=== PATIENT | female | born 1940 | race Caucasian/White ===

== ENCOUNTER → 2017-08-07 | Outpatient (CLI) | payer MEDICARE, OTHER, SELFPAY | PROVIDERS: Visit Provider Orthopaedic Surgery | DX: M76.892 Other specified enthesopathies of left lower limb, excluding foot (principal) | CPT/HCPCS: 73721 ==

== ENCOUNTER → 2017-09-17 12:57 | Outpatient (CLI) | payer MEDICARE, OTHER, SELFPAY | PROVIDERS: Family Provider Internal Medicine; PCP Internal Medicine; Visit Provider Nurse Practitioner Family | DX: J45.909 Unspecified asthma, uncomplicated (principal) ==

== ENCOUNTER → 2017-10-28 09:54 | Outpatient (CLI) | payer MEDICARE, OTHER, SELFPAY ==
[2017-10-28 14:06] VITALS: PULSE 73; PULSE 78
== END ==
PROVIDERS: Family Provider Internal Medicine; PCP Internal Medicine; Visit Provider Internal Medicine
DX: R10.9 Unspecified abdominal pain (principal)
CPT/HCPCS: 94060; 94640; 94727; 94729

== ENCOUNTER → 2018-03-03 12:47 | Outpatient (CLI) | payer MEDICARE, OTHER, SELFPAY ==
--- NOTE | 2018-03-03 12:51 | CT_ITS ---
CT chest wo con INDICATION: Shortness of breath, patient states history of asthma ITS.REASON: PULMONARY NODULE, SOB ORDERING PHYSICIAN: Jason Sung MD PATIENT AGE: 77 years COMPARISON: (05/19/2017 TECHNIQUE: Axial images are obtained without contrast. Sagittal and coronal reformatted images are reviewed as well. All CT scans at the facility use one or more dose reduction, viz: automated exposure control; ma/kV adjustment per patient size (including targeted exams where dose is matched to indication; i.e. head); or iterative reconstruction technique. FINDINGS: The lung rosario are well expanded. Again noted is the azygos lobe a normal variation. There is a stable noncalcified subpleural pulmonary nodule right upper lobe laterally. There is a calcified granuloma right middle lobe laterally. There are no pneumonic infiltrates. There is mild stable pleural scarring at the left posterior gutter. There are stable generalized cardio megaly and there is no pulmonary congestion. Both adrenal glands appear normal. IMPRESSION: Stable small 6 to 7 mm noncalcified pulmonary nodule and consider follow CT scan in one year to evaluate for interval stability. Stable generalized cardio megaly without failure.
== END ==
PROVIDERS: Family Provider Internal Medicine; PCP Internal Medicine; Visit Provider Internal Medicine
DX: R91.1 Solitary pulmonary nodule (principal)
CPT/HCPCS: 71250

== ENCOUNTER → 2018-03-10 14:39 | Outpatient (POV) | payer MEDICARE, OTHER, SELFPAY | PROVIDERS: Family Provider Internal Medicine; PCP Internal Medicine; Visit Provider Internal Medicine | DX: Z00.00 Encounter for general adult medical examination without abnormal findings (principal) ==

== ENCOUNTER → 2018-04-15 11:29 | Outpatient (CLI) | payer MEDICARE, OTHER, SELFPAY ==
--- NOTE | 2018-04-15 11:34 | XR_ITS ---
XR chest 2V HISTORY: Shortness of breath, hypertension ITS.REASON: SHORTNESS OF BREATH,HTN ORDERING PHYSICIAN: Alfred Cantu PATIENT AGE: 77 years COMPARISON: 05/16/2017 FINDINGS: There is mild cardiomegaly without failure. There is an azygos fissure is a normal variant. No lobar consolidation or collapse is evident. There is mild patient rotation. The pulmonary arteries are slightly prominent on the right and in somewhat may be due to patient rotation. No acute bony anomalies. IMPRESSION: Cardiomegaly. Mild prominence of the pulmonary arteries which may be seen with pulmonary arterial hypertension.
== END ==
PROVIDERS: PCP Internal Medicine; Visit Provider Internal Medicine
DX: R06.02 Shortness of breath (principal); I10 Essential (primary) hypertension
CPT/HCPCS: 71046

== ENCOUNTER → 2018-05-06 15:24 | Outpatient (CLI) | payer MEDICARE, OTHER, SELFPAY ==
--- NOTE | 2018-05-06 15:31 | XR_ITS ---
XR ankle LT min 3V HISTORY: ITS.REASON: LEFT ANKLE PAIN ORDERING PHYSICIAN: Alfred Cantu PATIENT AGE: 77 years Comparison: None FINDINGS: There is mild soft tissue swelling overlying the lateral malleolus region. Faint calcification is present at the tip of the lateral malleolus consistent with old avulsion injury or posttraumatic changes. This was present on 12/23/2014. Calcification also noted along the dorsal aspect of the mid talar area not readily apparent on the previous exam consistent with avulsion fracture/posttraumatic change. Has the patient had an interval injury to this region? No other significant anomalies are evident. IMPRESSION: Irregular calcification along the mid and dorsal aspect of the talus which may be related to avulsion fracture with soft tissue calcification. Please correlate with patient's history. Soft tissue swelling along the lateral malleolus region with old avulsion fracture of the tip of the lateral malleolus
== END ==
PROVIDERS: Visit Provider Internal Medicine
DX: M25.572 Pain in left ankle and joints of left foot (principal)
CPT/HCPCS: 73610

== ENCOUNTER → 2018-09-08 15:58 | Outpatient (POV) | payer MEDICARE, OTHER, SELFPAY | PROVIDERS: Visit Provider Internal Medicine | DX: Z00.00 Encounter for general adult medical examination without abnormal findings (principal) ==

== ENCOUNTER 2018-10-17 11:55 | Inpatient (IN) ==
--- NOTE | 2018-10-17 12:10 | Emergency Department Note ---
ED Disposition Clinical Impression: Asthmatic bronchitis, Pulmonary hypertension, Obesity, Systemic hypertension, Community acquired bacterial pneumonia Disposition: Still a Patient Condition on Discharge: Fair Referrals: Alfred Cantu [Primary Care Provider] - - Critical Care Critical Care Time: No Attestation: On , the high probability of a clinically significant, sudden or life threatening deterioration of the following system(s) required my full and direct attention, intervention and personal management. The time I documented below is in addition to time spent performing reported procedures but includes the following listed in this critical care notation. Medical Decision Making - Medical Records Medical records reviewed: Yes: I reviewed the patient's medical records. - Saad Inquiry Pt receiving controlled substance: No Saad was queried for this patient: No Vital Signs: 10/17/18 11:57 10/17/18 12:05 10/17/18 12:25 Temperature 100.5 F H Temperature Source Oral Pulse Rate 100 H Pulse Rate [Left Radial] 106 H Respiratory Rate 42 H Blood Pressure [Right Arm] 185/113 H Blood Pressure Mean [Right Arm] 137 Blood Pressure Source [Right Arm] Automatic Cuff Blood Pressure Position [Right Arm] Sitting 02 Sat by Pulse Oximetry 95 95 85 L Oxygen Delivery Method Nasal Cannula Nasal Cannula Room Air Oxygen Flow Rate (LPM) 2 2 10/17/18 14:18 10/17/18 14:30 10/17/18 15:00 Temperature Temperature Source Pulse Rate Pulse Rate [Left Radial] 92 H 89 85 Respiratory Rate Blood Pressure [Right Arm] 147/60 H 158/88 H 163/99 H Blood Pressure Mean [Right Arm] 89 111 120 Blood Pressure Source [Right Arm] Automatic Cuff Blood Pressure Position [Right Arm] Sitting 02 Sat by Pulse Oximetry 96 96 95 Oxygen Delivery Method Nasal Cannula Oxygen Flow Rate (LPM) 2 10/17/18 15:30 10/17/18 16:00 Temperature Temperature Source Pulse Rate Pulse Rate [Left Radial] 95 H 90 Respiratory Rate Blood Pressure [Right Arm] 150/89 H 138/88 Blood Pressure Mean [Right Arm] 109 104 Blood Pressure Source [Right Arm] Automatic Cuff Automatic Cuff Blood Pressure Position [Right Arm] Sitting Sitting 02 Sat by Pulse Oximetry 94 L 95 Oxygen Delivery Method Nasal Cannula Nasal Cannula Oxygen Flow Rate (LPM) 2 2 - Lab Data Lab Results 10/17/18 12:15: WBC 16.3 H, RBC 4.70, Hgb 12.1 L, Hct 37.8, MCV 80.4 L, MCH 25.8 L, MCHC 32.1, RDW 14.6, Plt Count 288, MPV 8.9, Neut % (Auto) 77.8, Lymph % (Auto) 10.6, [place] % (Auto) 6.4, Eos % (Auto) 4.9, Baso % (Auto) 0.4, Neut # (Auto) 12.7 H, Lymph # (Auto) 1.7, [place] # (Auto) 1.0, Eos # (Auto) 0.8 H, Baso # (Auto) 0.1, Total Counted 100, Neutrophils % (Manual) 83 H, Lymphocytes % (Manu al) 10, Monocytes % (Manual) 7, Platelet Estimate Normal 10/17/18 12:15: Sodium 136, Potassium 3.5, Chloride 97 L, Carbon Dioxide 29, Anion Gap 13.5, BUN 15, Creatinine 1.02, Estimated Creat Clear 66, Estimated GFR 53 L, Est GFR ( Amer) 64, Glucose 112 H, Calcium 8.7, Total Bilirubin 0.5, AST 17, ALT 31, Alkaline Phosphatase 94, Troponin I < 0.02, Total Protein 7.3, Albumin 3.4, Globulin 3.9 H, Albumin/Globulin Ratio 0.9 L 10/17/18 12:15: Lactate 0.9 10/17/18 12:15: B-Natriuretic Peptide 563 H Result diagrams: 10/17/18 12:15 10/17/18 12:15 Orders (Tests/Meds): ED MEDICATIONS Generic Name Dose Route Start Last Admin Trade Name Bharathiq PRN Reason Stop Dose Admin Albuterol/Ipratropium 3 ml 10/17/18 12:15 10/17/18 12:05 Duoneb 3ml Neb IH 11/16/18 12:14 3 ml Q1H CELI Administration Ceftriaxone Sodium 1 gm/ 50 mls @ 100 mls/hr 10/17/18 12:15 10/17/18 13:00 Sodium Chloride IV 10/31/18 12:14 100 mls/hr Q24H CELI Administration Protocol Azithromycin 500 mg/ Sodium 250 mls @ 250 mls/hr 10/17/18 14:30 10/17/18 14:46 Chloride IV 10/31/18 14:29 250 mls/hr Q24H CELI Administration Protocol Discontinued Medications Generic Name Dose Route Start Last Admin Trade Name Slade PRN Reason Stop Dose Admin Famotidine 20 mg 10/17/18 12:07 10/17/18 13:00 Pepcid 20mg/2ml Vial IV 10/17/18 12:08 20 mg ONCE ONE Administration Methylprednisolone Sodium Succinate 125 mg 10/17/18 12:07 10/17/18 12:29 Solu-Medrol 125mg/2ml Vial IV 10/17/18 12:08 125 mg ONCE ONE Administration ORDERS Category Date Time Status Blood Culture Stat Micro 10/17/18 12:15 Received - Radiology Data #1 Image(s): Chest Image Reviewed: Yes I reviewed the patient's radiology image Preliminary Findings: Abnormal IMPRESSION: Right basilar airspace disease Infiltrate/atelectasis right infrahilar & extending towards right lung base.. Medical Decision Narrative: Patient chest x-ray was positive for bibasilar infiltrates, patient started on Rocephin in the ED. I contacted Dr. Gardner is covering for Dr. Bethea agreed to admit. She was agreeable for admission.. Resp/SOB HPI - General Stated Complaint: SOB Time Seen by Provider: 10/17/18 12:08 - History of Present Illness 78 years old white female with history of asthma suffering from the fourth episode this year. She had extensive workup last year including a cardiac cat heterization and she was told that she is having pulmonary hypertension. Since October 12, 2018, she developed another episode was seen by her primary care physician she was given Z-Janak and prednisone in addition to her albuterol neb at home. She is not getting better she continues to be short of breath, wheezing, and arrived to the ED with a oxygen saturation of 85% on room air and temperature of 100.5F. She denies having chest pain, palpitations, hemoptysis, hematemesis, coffee- ground emesis, or bleeding per rectum. MD Complaint: shortness of breath Onset (ago): day(s) (5 days.) Severity: moderate Consistency/Duration: constant Relieving factors: oxygen, rest, bronchodilators Exacerbating factors: exertion Known history of: asthma Associated symptoms: cough, wheezing, sputum production Treatment prior to arrival: bronchodilator, other (Antibiotics and steroids by her primary care physician. ) - Related Data Home oxygen amount: none Home Medications Medication Instructions Recorded Confirmed albuterol sulfate HFA 90 2 puff INHALATION Q6H PRN 09/09/17 02/06/18 mcg/actuation aerosol inhaler carvedilol 25 mg tablet 25 mg PO ONCE 90 Days #360 tab 09/09/17 02/06/18 diazepam 5 mg tablet 5 mg PO DAILY 30 Days #60 09/09/17 02/06/18 diclofenac sodium 75 mg 75 mg PO DAILY 90 Days #180 09/09/17 02/06/18 tablet,delayed release fluticasone propionate-salmeterol 2 puff INHALATION Q12H 09/09/17 02/06/18 230 mcg-21 mcg/actuation HFA inhaler losartan 25 mg tablet 25 mg PO QDAY 09/09/17 02/06/18 multivitamin,ne-voir-lejpujoe 1 tab PO QDAY 09/09/17 02/06/18 tablet triamterene 37.5 1 tab PO QAM 09/09/17 02/06/18 mg-hydrochlorothiazide 25 mg tablet Aspirin [Aspir 81] 81 mg PO DAILY 11/26/17 02/06/18 Allergies Allergy/AdvReac Type Severity Reaction Status Date / Time latex Allergy Intermediate I-RASH Verified 02/06/18 07:31 Sulfa (Sulfonamide Allergy Mild NA-NAUSEA Verified 02/06/18 07:31 Antibiotics) [facility] History - Hepatitis A Screen Attestation statement:: This patient has been screened for Hepatitis A risk factors. I have reviewed the patient's past medical history: Yes (She did have extensive workup including cardiac cath in 2018. ) Medical History: Reports:: Anxiety, Heart Murmur, Hyperlipidemia (NOT MEDICATED), Hypertension, Lung Disease (asthma) Denies:: Diabetes Mellitus Type 1, Diabetes Mellitus Type 2, Internal Pacemaker, Seizures Other Medical History: Denies: Blood Transfusion Reaction Other Surgeries: Yes: Appendectomy, Cardiac Catheterization (6 MONTHS AG0), Cholecystectomy, Hysterectomy-Total, Sinus Surgery. No: Pacemaker - Social History Smoking Status: Smoker, status unknown Alcohol Intake: never - Psychiatric History Pschychiatric History:: Reports:: Anxiety Family Hx:: No significant family history ROS Obtained: Yes All systems reviewed & no additional complaints Physical Exam - General General appearance: alert, in no apparent distress, anxious, obese - Head Head exam: atraumatic, normocephalic, normal inspection - Eye Eye exam: Present: normal appearance, PERRL, EOMI. Absent: scleral icterus, nystagmus - ENT ENT exam: Present: normal exam, normal oropharynx, mucous membranes moist, TM's normal bilaterally, normal external ear exam - Neck Neck exam: Present: normal inspection, full ROM, trachea midline. Absent: tenderness, meningismus, lymphadenopathy - Chest Chest inspection: Present: normal inspection, symmetric chest wall rise. Absent: tenderness - Respiratory Respiratory exam: Present: normal lung sounds bilaterally, respiratory distress, wheezes, other (Mild to moderate respiratory distress, bilateral lung wheeze anteriorly and posteriorly.) - Cardiovascular Cardiovascular exam: Present: normal rhythm, tachycardia. Absent: JVD - Abdominal Exam Abdominal exam: Present: soft, normal bowel sounds. Absent: distention, tenderness, guarding, rebound, rigidity, Luis's sign, tenderness at McBurney's Point - Extremities Exam Extremities exam: Present: normal inspection, full ROM, normal capillary refill. Absent: tenderness, pedal edema, calf tenderness - Back Exam Back exam: Present: normal inspection. Absent: tenderness - Neurological Exam Neurological exam: Present: alert, oriented X3, CN II-XII intact, motor sensory deficit, reflexes normal - Psychiatric Psychiatric exam: Present: normal affect, normal mood - Skin Skin exam: Present: warm, dry, intact, normal color - Lymphatic Lymphatic Findings: no adenopathy
[2018-10-17 12:25] LABS: Basophils # 0.1 K/mm3 (0-0.2); Basophils % 0.4 % (0.1-2.0); Eosinophils # 0.8 K/mm3 (0.0-0.4); Eosinophils % 4.9 % (0.1-12.0); Hematocrit 37.8 % (37.0-47.0); Hemoglobin 12.1 g/dL (12.2-16.2); Lymphocytes # 1.7 K/mm3 (0.7-4.5); Lymphocytes % 10.6 % (10-50); Mean Corpuscular HGB Conc 32.1 g/dL (31.8-35.4); Mean Corpuscular Hemoglobin 25.8 pg (27.0-31.2); Mean Corpuscular Volume 80.4 fl (81-99); Mean Platelet Volume 8.9 fl (7.4-10.4); Monocytes % 6.4 % (1.7-9.3); Neutrophils # 12.7 K/mm3 (1.8-7.8); Neutrophils % 77.8 % (37.0-80.0); Platelet Count 288 K/mm3 (142-424); Red Cell Distribution Width 14.6 % (11.5-17.5); White Blood Count 16.3 K/mm3 (4.8-10.8)
[2018-10-17 12:39] LABS: Alanine Aminotransferase 31 U/L (12-78); Albumin Level 3.4 gm/dL (3.4-5.0); Albumin/Globulin Ratio 0.9 (1.1-1.8); Alkaline Phosphatase 94 U/L (46-116); Anion Gap 13.5 mEq/L (5-15); Aspartate Amino Transferase 17 U/L (15-37); Bilirubin,Total 0.5 mg/dL (0.2-1.0); Blood Urea Nitrogen 15 mg/dL (7-18); Calcium 8.7 mg/dL (8.5-10.1); Carbon Dioxide 29 mmol/L (21.0-32.0); Chloride 97 mmol/L (98-107); Globulin 3.9 gm/dl (1.3-3.2); Glucose 112 mg/dL (74-106); Potassium 3.5 mmoL/L (3.5-5.1); Sodium 136 mmol/L (136-145); Total Protein,Serum 7.3 gm/dL (6.4-8.2)
[2018-10-17 13:08] LABS: Lymphocytes % 10 % (10-50); Monocytes % 7 % (2-9); Neutrophils % 83 % (42-76); Total Cells Counted 100
[2018-10-17 17:05] LABS: Anion Gap 13.5 mEq/L (5-15); Calcium 8.6 mg/dL (8.5-10.1); Potassium 3.5 mmoL/L (3.5-5.1)
[2018-10-18 06:42] LABS: Basophils % 0.1 % (0.1-2.0); Eosinophils % 0.1 % (0.1-12.0); Hematocrit 33.5 % (37.0-47.0); Lymphocytes # 1.4 K/mm3 (0.7-4.5); Mean Corpuscular HGB Conc 32.8 g/dL (31.8-35.4); Mean Corpuscular Hemoglobin 26.3 pg (27.0-31.2); Mean Platelet Volume 9.1 fl (7.4-10.4); Monocytes # 0.4 K/mm3 (0.1-1.0); Monocytes % 3.2 % (1.7-9.3); Neutrophils # 10.5 K/mm3 (1.8-7.8); Neutrophils % 85.6 % (37.0-80.0); Platelet Count 240 K/mm3 (142-424); Red Blood Count 4.19 M/mm3 (4.20-5.40); Red Cell Distribution Width 14.4 % (11.5-17.5); White Blood Count 12.3 K/mm3 (4.8-10.8)
[2018-10-18 07:19] LABS: Lymphocytes % 7 % (10-50); Monocytes % 3 % (2-9); Neutrophils % 87 % (42-76); Polychromasia 1+; Total Cells Counted 100
--- NOTE | 2018-10-18 08:13 | History & Physical Report ---
*Admission Date: 10/17/18 *Chief complaint: Cough and shortness of air *History of present illness: 78-year-old white female with history of recurrent bronchial infections, who over the past 4 months has had several different treatments for community- acquired bronchitis/asthma exacerbation with outpatient shots of steroid and azithromycin packs. This occurred in June, again in July and this past Friday when she went to her physician's office and received a cortisone injection and was prescribed a Z-Janak. She did not feel much better, became increasingly short of air, and presented to the emergency department yesterday evening where she was found to have infiltrate in the right chest, dyspnea and increased oxygen requirement and was admitted to the hospital. This morning she states she feels somewhat better but continues to have a dry cough but her overall complaint is significant shortness of air. [facility] History I have reviewed the patient's past medical history: Yes Medical History: Reports:: Anxiety, Heart Murmur, Hyperlipidemia (NOT MEDICATED), Hypertension, Lung Disease (asthma) Denies:: Diabetes Mellitus Type 1, Diabetes Mellitus Type 2, Internal Pacemaker, Seizures *Have you ever received a pneumonia vaccine?: Yes *Have you received a flu vaccine this season?: Yes Other Medical History: Denies: Blood Transfusion Reaction Comment:: Patient reports left and right heart catheterization at [facility] last summer that was "totally normal." Other Surgeries: Yes: Appendectomy, Cardiac Catheterization (6 MONTHS AG0), Cholecystectomy, Hysterectomy-Total, Sinus Surgery. No: Pacemaker - *Social History Educational Level: Completed High School Smoking Status: Never smoker Alcohol Intake: never *Occupational Status:: retired Housing: house Household Members: spouse *Travel in the last 8 weeks: None - Psychiatric History Expresses thoughts of harming self/others: None Suicide Plan Description: No Plan Pschychiatric History:: Reports:: Anxiety Family Hx:: No significant family history Review of Systems - Review of Systems Review of systems:: pertinent systems reviewed and negative unless documented below - Constitutional Denies anorexia, Denies body ache(s), Denies chills, Denies headache(s), Denies weakness, Denies weight gain - Eyes Denies blurry vision, Denies change in vision - ENT Denies bleeding gums, Denies dry mouth, Denies difficulty swallowing - *Cardiovascular Reports shortness of breath, Reports shortness of breath with activity, Denies chest pain, Denies chest pain at rest, Denies chest pain with activity, Denies leg pain with activity, Denies generalized swelling, Denies irregular heart rhythm, Denies leg swelling - *Respiratory Reports chest congestion, Reports cough, Reports shortness of breath, Reports excessive phlegm production, Denies change in phlegm color - *Gastrointestinal Denies abdominal pain, Denies belching - *Musculoskeletal Reports joint pain, Denies abnormal walking - Integumentary/Breasts Denies hair loss, Denies bleeding lesions - *Neurologic Denies abnormal walking, Denies abnormal hearing - Endocrine Denies cold intolerance, Denies excessive sweating - Hematologic/Lymphatic Denies easy bleeding Meds Home Medications Medication Instructions Recorded Confirmed Type albuterol sulfate HFA 90 2 puff INHALATION Q6H PRN 09/09/17 10/17/18 History mcg/actuation aerosol inhaler carvedilol 25 mg tablet 25 mg PO ONCE 90 Days #360 tab 09/09/17 10/17/18 History diazepam 5 mg tablet 5 mg PO DAILY 30 Days #60 09/09/17 02/06/18 History diclofenac sodium 75 mg 75 mg PO DAILY 90 Days #180 09/09/17 02/06/18 History tablet,delayed release fluticasone propionate-salmeterol 2 puff INHALATION Q12H 09/09/17 02/06/18 History 230 mcg-21 mcg/actuation HFA inhaler losartan 25 mg tablet 25 mg PO QDAY 09/09/17 10/17/18 History multivitamin,xd-oyiw-vztmoubv 1 tab PO QDAY 09/09/17 02/06/18 History tablet triamterene 37.5 1 tab PO QAM 09/09/17 10/17/18 History mg-hydrochlorothiazide 25 mg tablet Allergies Allergy/AdvReac Type Severity Reaction Status Date / Time latex Allergy Intermediate I-RASH Verified 02/06/18 07:31 Sulfa (Sulfonamide Allergy Mild NA-NAUSEA Verified 02/06/18 07:31 Antibiotics) Exam Vital signs and Labs for Last 24 Hours: Temp Pulse Resp BP Pulse Ox 98.4 F 74 18 150/77 H 97 10/18/18 04:00 10/18/18 04:00 10/18/18 04:00 10/18/18 04:00 10/18/18 04:00 Laboratory Results - last 24 hr 10/17/18 12:15: WBC 16.3 H, RBC 4.70, Hgb 12.1 L, Hct 37.8, MCV 80.4 L, MCH 25.8 L, MCHC 32.1, RDW 14.6, Plt Count 288, MPV 8.9, Neut % (Auto) 77.8, Lymph % (Auto) 10.6, [place] % (Auto) 6.4, Eos % (Auto) 4.9, Baso % (Auto) 0.4, Neut # (Auto) 12.7 H, Lymph # (Auto) 1.7, [place] # (Auto) 1.0, Eos # (Auto) 0.8 H, Baso # (Auto) 0.1, Total Counted 100, Neutrophils % (Manual) 83 H, Lymphocytes % (Manual) 10, Monocytes % (Manual) 7, Platelet Estimate Normal 10/17/18 12:15: Sodium 136, Potassium 3.5, Chloride 97 L, Carbon Dioxide 29, Anion Gap 13.5, BUN 15, Creatinine 1.02, Estimated Creat Clear 66, Estimated GFR 53 L, Est GFR ( Amer) 64, Glucose 112 H, Calcium 8.7, Total Bilirubin 0.5, AST 17, ALT 31, Alkaline Phosphatase 94, Troponin I < 0.02, Total Protein 7.3, Albumin 3.4, Globulin 3.9 H, Albumin/Globulin Ratio 0.9 L 10/17/18 12:15: Lactate 0.9 10/17/18 12:15: B-Natriuretic Peptide 563 H 10/17/18 16:45: Sodium 138, Potassium 3.5, Chloride 100, Carbon Dioxide 28, Anion Gap 13.5, BUN 13, Creatinine 0.89, Estimated Creat Clear 67, Estimated GFR 62, Est GFR ( Amer) 75, Glucose 157 H D, Calcium 8.6 10/18/18 06:09: WBC 12.3 H, RBC 4.19 L, Hgb 11.0 L, Hct 33.5 L, MCV 80.0 L, MCH 26.3 L, MCHC 32.8, RDW 14.4, Plt Count 240, MPV 9.1, Neut % (Auto) 85.6 H, Lymph % (Auto) 11.0, [place] % (Auto) 3.2, Eos % (Auto) 0.1, Baso % (Auto) 0.1, Neut # (Auto) 10.5 H, Lymph # (Auto) 1.4, [place] # (Auto) 0.4, Eos # (Auto) 0.0, Baso # (Auto) 0.0, Total Counted 100, Neutrophils % (Manual) 87 H, Band Neutrophils % 3.0, Lymphocytes % (Manual) 7 L, Monocytes % (Manual) 3, Platelet Estimate Normal, Polychromasia 1+ I & O for Last 24 hours: Intake & Output 10/15/18 10/16/18 10/17/18 10/18/18 11:59 11:59 11:59 12:59 Intake Total 240 / 240 Output Total 625 / 625 Balance -385 / -385 Weight 196 lb 7 oz Narrative: Patient is alert, oriented x3, appears her stated age. Morbidly obese. Oropharynx clear. No JVD. No sinus tenderness. Lungs have diminished air movement, crackles in the right anterior lower lung field. Diffuse expiratory rhonchi but no actual wheezing. No tracheal deviation. Heart rate regular. Murmur noted. Lung examination abnormalities and obesity limits accuracy of her exam. Abdomen soft, nontender. No extremity edema clubbing or cyanosis. Assessment and Plan (1) Dyspnea Current visit: Yes Status: Acute Category: Medical Code(s): R06.00 - Dyspnea, unspecified Multiple etiologies, patient's history of pulmonary hypertension as noted. Plan to obtain catheter results and obtain echocardiogram. Dose of Lasix cautiously today given her fluid overload signs on chest x-ray and elevated BNP. (2) Asthmatic bronchitis Current visit: Yes Status: Acute Category: Medical Code(s): J45.909 - Unspecified asthma, uncomplicated Begin nebulizer treatments. (3) Community acquired bacterial pneumonia Current visit: Yes Status: Acute Category: Medical Code(s): J15.9 - Unspecified bacterial pneumonia Given multiple exposures to antibiotics at home I will change to more aggressive broad-spectrum antibiotics. (4) Obesity Current visit: Yes Status: Chronic Qualifiers: Body mass index: BMI 38.0-38.9 Category: Medical Code(s): E66.9 - Obesity, unspecified Complicates all aspects of her care (5) Pulmonary hypertension Current visit: Yes Status: Acute Category: Medical Code(s): I27.20 - Pulmonary hypertension, unspecified Obtain records, check echo (6) Systemic hypertension Current visit: Yes Status: Acute Category: Medical Code(s): I10 - Essential (primary) hypertension Currently stable. Follow closely. Hold diuretics orally given Lasix administration today.
--- NOTE | 2018-10-18 13:53 | Pharmacy Consult Notes ---
[facility] Pharmacy VTE Monitoring - Patient Demographics Admission date: 10/18/18 Report Date: 10/18/18 Time: 13:52 Allergies/Adverse Reactions: Patient Allergies latex Allergy (Intermediate, Verified 02/06/18 07:31) I-RASH Sulfa (Sulfonamide Antibiotics) Allergy (Mild, Verified 02/06/18 07:31) NA-NAUSEA Height: 1.52 m Weight: 89.103 kg Patient Problems: Current Active Problems Asthmatic bronchitis (Acute) Pulmonary hypertension (Acute) Obesity (Chronic) Systemic hypertension (Acute) Community acquired bacterial pneumonia (Acute) Dyspnea (Acute) - VTE Risk Labs: VTE Related Lab Results Hgb 11.0 g/dL (12.2-16.2) L 10/18/18 06:09 Hct 33.5 % (37.0-47.0) L 10/18/18 06:09 Plt Count 240 K/mm3 (142-424) 10/18/18 06:09 BUN 13 mg/dL (7-18) 10/17/18 16:45 Creatinine 0.89 mg/dL (0.55-1.02) 10/17/18 16:45 Estimated Creat Clear 67 mL/min (50-200) 10/17/18 16:45 Was VTE Risk Assessment Performed: No VTE Score: 5 VTE Risk Level: Low Risk - Prophylaxis Types of VTE Prophylaxis: TEDS Knee High (DAVINA HOSE ORDER PLACED)
--- NOTE | 2018-10-19 08:41 | Progress Note ---
Internal Medicine - PN: Subj *Date: 10/19/18 *Time: 08:39 Interval history: Patient overall feels slightly better. She is a very tangential historian but does note that her shortness of air is slightly better. She notes that she does not take Advair on a regular basis or her duo nebs on a regular basis at home. She has had no fever overnight and was able to submit a sputum sample yesterday. Exam Vital signs and Labs for Last 24 Hours: Temp Pulse Resp BP Pulse Ox 98.6 F 91 H 18 156/89 H 95 10/19/18 08:00 10/19/18 08:00 10/19/18 08:00 10/19/18 08:00 10/19/18 08:00 I & O for Last 24 hours: Intake & Output 10/16/18 10/17/18 10/18/18 10/19/18 10:59 10:59 11:59 11:59 Intake Total 760 / 760 Output Total Balance 760 / 760 Weight 196 lb 7 oz Microbiology Reports for the Last 24 Hours: Microbiology 10/18/18 20:30 Sputum - Expectorated Sputum Gram Stain - Final 10/18/18 20:30 Sputum - Expectorated Sputum Sputum Culture - Preliminary Narrative: Patient is alert. Pleasant. Extremely tangential on interview. Her oropharynx is clear, she has no JVD. Heart rate regular with previously noted 2/6 holosystolic murmur. Lungs have rhonchi and expiratory wheezing but better air entry in the previously noted crackles in the right anterior lung rosario are clear. Obesity limits her abdominal exam issues. She has no edema, clubbing or cyanosis. Neurologic exam is nonfocal. Assessment and Plan (1) Dyspnea Current visit: Yes Status: Acute Category: Medical Code(s): R06.00 - Dyspnea, unspecified (2) Asthmatic bronchitis Current visit: Yes Status: Acute Category: Medical Code(s): J45.909 - Unspecified asthma, uncomplicated Patient is clearly been noncompliant with scheduled nebulizers and Advair at home. I emphasized compliance. Continue nebulizers and Advair. May need to go home on oxygen when ready for discharge. (3) Community acquired bacterial pneumonia Current visit: Yes Status: Acute Category: Medical Code(s): J15.9 - Unspecified bacterial pneumonia Continue broad-spectrum antibiotics given multiple outpatient antibiotic exposures. Await sputum culture. (4) Obesity Current visit: Yes Status: Chronic Qualifiers: Body mass index: BMI 38.0-38.9 Category: Medical Code(s): E66.9 - Obesity, unspecified (5) Pulmonary hypertension Current visit: Yes Status: Acute Category: Medical Code(s): I27.20 - Pulmonary hypertension, unspecified This is a problem list on patient's chart however I reviewed her cath data from [facility] which does not reveal any evidence of pulmonary hypertension. (6) Systemic hypertension Current visit: Yes Status: Acute Category: Medical Code(s): I10 - Essential (primary) hypertension
--- NOTE | 2018-10-19 19:36 | Cardiology Report ---
PROCEDURE: 2-D M-mode and color Doppler study INDICATIONS FOR THE TEST: Chest pain COPD+ Heart Murmur+ Tobacco Smoking 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 Fatigue Syncope Edema Hypertension+Diabetes Mellitus Rheumatic Fever SOB KUMAR Obesity+Hyperlipidemia+ Family History HD Additional History PHTN PATIENT INFORMATION HEIGHT: 60 WEIGHT:196 GENDER: Female B/P:150/77 2-D/M-MODE INTERPRETATION: 2-D MEASUREMENTS OBSERVED VALUES IN CMS Right Ventricular Dimension (RVDd) 1.6 Interventricular Septum (Thickness)(IVsd) 2.1 Left Ventricular Internal Dimensions(LVIDd) 5.2 Left Ventricular Posterior Wall (Thickness)(LVPWd) 1.9 Aortic Root 3.6 Aortic Cusp Separation 2.1 Left Atrial Dimensions (LAD) 3.4 2D 1. Technically difficult study because of the patient's factor and poor acoustic windows 2. Left atrium is moderately enlarged, left ventricle is mildly dilated, there is severely reduced function, visually estimated ejection fraction 30%, there is marked hypokinesis involving mid to distal septum, anterior and anteroapical wall, there is abnormal septal motion. 3. The right atrium is moderately enlarged, right ventricle is mildly dilated with normal contractility. 4. The aortic valve is thickened and calcified leaflet continue to display mobility. 5. The mitral valve leaflets are minimally thickened. 6. The tricuspid valve leaflets are minimally thickened. 7. Pulmonic valve is poorly visualized. 8. No significant pericardial effusion noted. DOPPLER INTERROGATION: 1. The aortic outflow velocities within normal range, there is no aortic stenosis, there is mild aortic insufficiency. 2. The mitral inflow velocity is not accurately recorded, mildly increased, morphologically there is no mitral stenosis, there is severe mitral regurgitation, as evidence by color flow mapping, there is systolic flow reversal seen in the pulmonary vein. 3. Moderate tricuspid regurgitation noted, tricuspid regurgitation jet velocity is inadequate for calculation of the right ventricular systolic pressure. CONCLUSION: 1. Moderate biatrial enlargement, mildly dilated left ventricle, severely reduced left ventricular systolic function, visually estimated ejection fraction approximately 30% with segmental wall motion abnormality described above. 2. Thickened and calcified aortic valve without Doppler evidence of aortic stenosis, mild aortic insufficiency. 3. Severe mitral regurgitation, there is systolic flow reversal seen in the pulmonary vein. 4. Moderate tricuspid regurgitation, tricuspid regurgitation jet velocity is inadequate for calculation of the right ventricular systolic pressure. 5. No significant pericardial effusion noted.
[2018-10-19 21:43] LABS: ABG Base Excess 3.8 mmol/L (-2.4-2.3); ABG Oxygen Saturation 89 % (90-100); ABG PH 7.37 mmol/L (7.35-7.45); ABG PO2 59.3 mmhg (80-100); ABG TCO2 30.5 mmhg (23-27)
[2018-10-19 21:45] LABS: Allen's Test Acceptable
[2018-10-19 21:49] LABS: Oxygen 3 LPM NC %
[2018-10-19 21:50] LABS: ABG PCO2 50.8 mmhg (35.0-45.0)
[2018-10-20 07:31] LABS: Basophils % 0.1 % (0.1-2.0); Eosinophils # 0.2 K/mm3 (0.0-0.4); Hematocrit 33.7 % (37.0-47.0); Hemoglobin 11.2 g/dL (12.2-16.2); Lymphocytes # 1.8 K/mm3 (0.7-4.5); Lymphocytes % 12.2 % (10-50); Mean Corpuscular HGB Conc 33.2 g/dL (31.8-35.4); Mean Corpuscular Hemoglobin 26.3 pg (27.0-31.2); Mean Corpuscular Volume 79.2 fl (81-99); Mean Platelet Volume 8.6 fl (7.4-10.4); Monocytes # 0.8 K/mm3 (0.1-1.0); Monocytes % 5.7 % (1.7-9.3); Neutrophils # 11.8 K/mm3 (1.8-7.8); Platelet Count 238 K/mm3 (142-424); Red Blood Count 4.25 M/mm3 (4.20-5.40); Red Cell Distribution Width 14.7 % (11.5-17.5); White Blood Count 14.6 K/mm3 (4.8-10.8)
[2018-10-20 07:43] LABS: Albumin Level 2.9 gm/dL (3.4-5.0); Albumin/Globulin Ratio 0.8 (1.1-1.8); Anion Gap 10.6 mEq/L (5-15); Bilirubin,Total 0.8 mg/dL (0.2-1.0); Calcium 7.9 mg/dL (8.5-10.1); Globulin 3.6 gm/dl (1.3-3.2); Total Protein,Serum 6.5 gm/dL (6.4-8.2)
[2018-10-20 07:53] LABS: Potassium 2.6 mmoL/L (3.5-5.1)
--- NOTE | 2018-10-20 10:13 | Consult Report ---
History of Present Illness Consult date: 10/20/18 Requesting physician: Jason Castañeda Consult reason: congestive heart failure Chief complaint: SOA Additional Medical History:: 1. SOA A. Right and left heart cath, 06/2017, Dr. Key, Count Includes [facility], normal coronaries, Normal LVEF, normal right heart pressure and pulmonary arteries. No AV gradient. 2. Severe MR by echo, 10/2018 3. Cardiomyopathy, by echo, 10/2018, with LVEF 30% 4. Hypertension 5. Asthma 6. 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 This occurred in June, again in July and this past Friday when she went to her physician's office and received a cortisone injection and was prescribed a Z-Janak. She did not feel much better, became increasingly short of air, and presented to the emergency department yesterday evening where she was found to have infiltrate in the right chest, dyspnea and increased oxygen requirement and was admitted to the hospital. This morning she states she feels somewhat better but continues to have a dry cough but her overall complaint is significant shortness of air. The above per Dr. Jo Cardiology consulted due to echo showing severe cardiomyopathy with EF of 25-30% and severe mitral regurgitation. Pt with known normal coronary arteries and normal right heart cath in 06/2017. and relate multiple respiratory illnesses in 2018 with both having had the flu at least once. Pt states she gets worn out just cooking and is unable to wash dishes due to the fatigue. She can no longer walk to the mailbox without stopping to catch her breath. Pt denies tobacco use or treatment for diabetes. She does relate more than one family member having heart issues in their 50's and some needing pacemakers. EKG on admission shows a. fib at 87 bpm with IVCD in LBBB pattern. EKG today shows sinus rhythm with LBBB with SC interval of 170 ms and QRS duration of 152 ms. [facility] History Medical History: Reports:: Anxiety, Heart Murmur, Hyperlipidemia (NOT MEDICATED), Hypertension, Lung Disease (asthma) Denies:: Diabetes Mellitus Type 1, Diabetes Mellitus Type 2, Internal Pa cemaker, Seizures *Have you ever received a pneumonia vaccine?: Yes *Have you received a flu vaccine this season?: Yes Other Medical History: Denies: Blood Transfusion Reaction Other Surgeries: Yes: Appendectomy, Cardiac Catheterization (6 MONTHS AG0), Cholecystectomy, Hysterectomy-Total, Sinus Surgery. No: Pacemaker - *Social History Educational Level: Completed High School Smoking Status: Never smoker Alcohol Intake: never *Occupational Status:: retired Housing: house Household Members: spouse *Travel in the last 8 weeks: None - Psychiatric History Expresses thoughts of harming self/others: None Suicide Plan Description: No Plan Pschychiatric History:: Reports:: Anxiety Family Hx:: No significant family history Meds Home Medications Medication Instructions Recorded Confirmed Type albuterol sulfate HFA 90 2 puff INHALATION Q6H PRN 09/09/17 10/17/18 History mcg/actuation aerosol inhaler carvedilol 25 mg tablet 25 mg PO BID 90 Days #360 tab 09/09/17 10/18/18 History diazepam 5 mg tablet 5 mg PO DAILY 30 Days #60 09/09/17 10/18/18 History diclofenac sodium 75 mg 75 mg PO DAILY 90 Days #180 09/09/17 10/18/18 History tablet,delayed release losartan 25 mg tablet 25 mg PO DAILY 09/09/17 10/18/18 History multivitamin,[id number]-[id number] 1 tab PO DAILY 09/09/17 10/18/18 History tablet triamterene 37.5 1 tab PO DAILY 09/09/17 10/18/18 History mg-hydrochlorothiazide 25 mg tablet Fluticasone/Salmeterol [Advair 1 inhalation IH BID 10/18/18 10/18/18 History 250/50mcg Diskus] Allergies Allergy/AdvReac Type Severity Reaction Status Date / Time latex Allergy Intermediate I-RASH Verified 02/06/18 07:31 Sulfa (Sulfonamide Allergy Mild NA-NAUSEA Verified 02/06/18 07:31 Antibiotics) levofloxacin AdvReac Mild Blurry Verified 10/19/18 09:02 Vision Review of Systems - *Cardiovascular Reports shortness of breath, Denies chest pain - *Respiratory Reports chest congestion, Reports cough, Reports shortness of breath, Reports shortness of breath with activity, Reports excessive phlegm production - *Gastrointestinal Denies abdominal pain, Denies loose stools, Denies nausea - *Genitourinary Denies blood in urine, Denies pelvic pain - *Musculoskeletal Denies joint pain, Denies back pain - *Neurologic Denies abnormal walking, Denies abnormal hearing, Denies headache(s), Denies weakness Exam Vital signs and Labs for Last 24 Hours: Temp Pulse Resp BP Pulse Ox 98.7 F 85 22 188/99 H 2 L 10/20/18 07:59 10/20/18 09:28 10/20/18 08:00 10/20/18 08:00 10/20/18 09:28 Laboratory Results - last 24 hr 10/19/18 21:41: Specimen Source Right radial, O2 % 3 lpm nc, ABG pH 7.37, ABG pCO2 50.8 H, ABG pO2 59.3 L, ABG HCO3 29.0 H, ABG Total CO2 30.5 H, ABG O2 Saturation 89 L, ABG Base Excess 3.8 H, Jacky Test Acceptable 10/20/18 07:05: WBC 14.6 H, RBC 4.25, Hgb 11.2 L, Hct 33.7 L, MCV 79.2 L, MCH 26.3 L, MCHC 33.2, RDW 14.7, Plt Count 238, MPV 8.6, Neut % (Auto) 81.0 H, Lymph % (Auto) 12.2, [place] % (Auto) 5.7, Eos % (Auto) 1.0, Baso % (Auto) 0.1, Neut # (Auto) 11.8 H, Lymph # (Auto) 1.8, [place] # (Auto) 0.8, Eos # (Auto) 0.2, Baso # (Auto) 0.0 10/20/18 07:05: Sodium 136, Potassium 2.6 L* D, Chloride 96 L, Carbon Dioxide 32, Anion Gap 10.6, BUN 18 D, Creatinine 1.01, Estimated Creat Clear 67, Estimated GFR 53 L, Est GFR ( Amer) 64, Glucose 84, Calcium 7.9 L, Total Bilirubin 0.8, AST 19, ALT 29, Alkaline Phosphatase 70, Total Protein 6.5, Albumin 2.9 L, Globulin 3.6 H, Albumin/Globulin Ratio 0.8 L I & O for Last 24 hours: Intake & Output 10/17/18 10/18/18 10/19/18 10/20/18 10:59 11:59 11:59 11:59 Intake Total 910 / 910 1540 / 1540 Output Total 550 / 550 Balance 910 / 910 990 / 990 Weight 196 lb 7 oz Microbiology Reports for the Last 24 Hours: Microbiology 10/17/18 12:15 Blood Blood Culture - Preliminary 10/17/18 12:15 Blood Blood Culture - Preliminary NO GROWTH AFTER 48 HOURS 10/18/18 20:30 Sputum - Expectorated Sputum Gram Stain - Final 10/18/18 20:30 Sputum - Expectorated Sputum Sputum Culture - Preliminary - *Routine HEENT Exam Head: Present: normocephalic Eye: Present: EOMI, PERRL ENT: Present: mucous membranes moist - *Routine Neck Exam Present: supple. Absent: JVD, carotid bruit - *Routine Respiratory Exam Present: decreased breath sounds, rales, rhonchi, wheezes, diminished air movement. Absent: accessory muscle use - *Routine Cardiovascular Exam Present: RRR, murmur. Absent: gallop, rubs - *Routine Abdominal Exam Present: soft. Absent: tenderness, distended, guarding - *Routine Extremities Exam Absent: edema, calf tenderness - *Routine Neurological Exam Present: alert, oriented X3, moving all extremities Assessment and Plan (1) Dyspnea Current visit: Yes Status: Acute Category: Medical Code(s): R06.00 - Dyspnea, unspecified (2) Asthmatic bronchitis Current visit: Yes Status: Acute Category: Medical Code(s): J45.909 - Unspecified asthma, uncomplicated (3) Community acquired bacterial pneumonia Current visit: Yes Status: Acute Category: Medical Code(s): J15.9 - Unspecified bacterial pneumonia (4) Obesity Current visit: Yes Status: Chronic Qualifiers: Body mass index: BMI 38.0-38.9 Category: Medical Code(s): E66.9 - Obesity, unspecified (5) Pulmonary hypertension Current visit: Yes Status: Acute Category: Medical Code(s): I27.20 - Pulmonary hypertension, unspecified (6) Systemic hypertension Current visit: Yes Status: Acute Category: Medical Code(s): I10 - Essential (primary) hypertension (7) Cardiomyopathy Current visit: Yes Status: Acute Qualifiers: Cardiomyopathy type: unspecified Qualified Code(s): I42.9 - Cardiomyopathy, unspecified Category: Medical Code(s): I42.9 - Cardiomyopathy, unspecified (8) Mitral regurgitation Current visit: Yes Status: Acute Qualifiers: Cardiac valve disease etiology: nonrheumatic Qualified Code(s): I34.0 - Nonrheumatic mitral (valve) insufficiency Category: Medical Code(s): I34.0 - Nonrheumatic mitral (valve) insufficiency (9) Complete left bundle branch block (LBBB) determined by ECG Current visit: Yes Status: Acute Category: Medical Code(s): I44.7 - Left bundle-branch block, unspecified - Assessment and plan all Dx Assessment and Plan for all problems:: 1. Severe cardiomyopathy with severe mitral regurgitation. Likely viral in et iology since she is a non-smoker and non-diabetic with normal coronaries by cardiac cath in 06/2017 with normal troponins this admission. Continue goal directed therapy for cardiomyopathy and CHF with beta ina, ASYA or ARB and diuretics as vitals and renal functions allow. She has been on BB and losartan for at least a year. Recommend biventricular AICD in setting of severe cardiomyopathy with LBBB on EKG. This may help improve her severe MR and prevent any need for surgical intervention. Long discussion with pt and . Continue to treat her pneumonia and use diuretics to correct CHF. Will plan for implantation later this week. 2. Discontinue maxzide and start spironolactone. 3. Increase irbesartan to BID 4. Continue coreg 5. Continue potassium replacement.
[2018-10-20 17:21] LABS: Anion Gap 10.3 mEq/L (5-15); Calcium 7.5 mg/dL (8.5-10.1); Potassium 3.3 mmoL/L (3.5-5.1)
--- NOTE | 2018-10-20 18:39 | Discharge Summary ---
General - General Admission date:: 10/17/18 Discharge date: 10/20/18 HPI HPI: 78-year-old white female with history of recurrent bronchial infections, who over the past 4 months has had several different treatments for community- acquired bronchitis/asthma exacerbation with outpatient shots of steroid and azithromycin packs. This occurred in June, again in July and this past Friday when she went to her physician's office and received a cortisone injection and was prescribed a Z-Janak. She did not feel much better, became increasingly short of air, and presented to the emergency department yesterday evening where she was found to have infiltrate in the right chest, dyspnea and increased oxygen requirement and was admitted to the hospital. This morning she states she feels somewhat better but continues to have a dry cough but her overall complaint is significant shortness of air. Hospital Course Hospital Course: Ms. Jimenez is a 78-year-old female who was initially admitted for concern for pneumonia that failed outpatient therapy. Clinically she appeared to have additional cardiopulmonary abnormalities which led to an echocardiogram being obtained. Her echocardiogram was quite significant for cardiomyopathy with severe mitral regurgitation. Found to have an ejection fraction of approximately 25-30% with severe mitral regurg and aortic insufficiency. She was initiated on IV antibiotics for her pneumonia as well as goal-directed therapy for her heart failure. Cardiology was consulted to assist in optimization and further management. During admission patient had 2 episodes of acute respiratory distress with hypoxia, development of bilateral crackles, and tachypnea. These episodes were preceded by hypertension prior to regular dosing of her beta-ina. There is significant concern for flash pulmonary edema. Episodes were treated with diuretics and BiPAP. She responded well however her condition continued to remain tenuous. Cardiology's assessment of the patient recommended improved optimization of medical management with continuation of carvedilol, potassium replacement due to hypokalemia, optimization of irbesartan dosing, initiation of Spironolactone, and recommended biventricular AICD placement as well. Unfortunately at this time our director transportation is unavailable until at the earliest later this week presenting significant risk to the patient by having to wait at least 4 days for potential intervention. Given her serious condition and tenuous status, we contacted [facility] for transfer. Additionally the patient follows with Dr. Key is her primary health safety instructor and this would allow her to be under his care either directly or indirectly. [facility] accepted the patient for transfer to ICU status. Plan for discharge as soon as possible for further management. - Electrolytes repleted PRN - Supplemental O2 as needed for goal Sats >92% - BiPAP at night - Valium (per home) for anxiety PRN BID - Developing Thrush, Started on Nystatin swish and swallow. Objective Vital signs: Temp Pulse Resp BP Pulse Ox 98.0 F 104 H 22 159/108 H 97 10/20/18 16:00 10/20/18 16:00 10/20/18 16:00 10/20/18 16:00 10/20/18 16:00 Narrative: Patient is alert, oriented x3, appears her stated age. Morbidly obese. Oropharynx clear. positive for JVD. No sinus tenderness. Lungs have diminished air movement, crackles in the right anterior lower lung field in bilateral bases, diffuse expiratory rhonchi with intermittent wheezing. No tracheal deviation. Tachycardic with regular rhythm, grade 3 systolic murmur noted. Lung examination abnormalities and obesity limits accuracy of her exam. Abdomen soft, nontender. No extremity edema clubbing or cyanosis. Results Labs on day of discharge: Labs from last 24 hours 10/20/18 10/20/18 10/20/18 17:01 17:01 07:05 WBC RBC Hgb Hct MCV MCH MCHC RDW Plt Count MPV Neut % (Auto) Lymph % (Auto) [place] % (Auto) Eos % (Auto) Baso % (Auto) Neut # (Auto) Lymph # (Auto) [place] # (Auto) Eos # (Auto) Baso # (Auto) Specimen Source O2 % ABG pH ABG pCO2 ABG pO2 ABG HCO3 ABG Total CO2 ABG O2 Saturation ABG Base Excess Jacky Test Sodium 129 L 136 Potassium 3.3 L D 2.6 L* D Chloride 92 L 96 L Carbon Dioxide 30 32 Anion Gap 10.3 10.6 BUN 16 18 D Creatinine 1.04 H 1.01 Estimated Creat Clear 65 67 Estimated GFR 52 L 53 L Est GFR ( Amer) 62 64 Glucose 143 H D 84 Calcium 7.5 L 7.9 L Magnesium 1.5 Total Bilirubin 0.8 AST 19 ALT 29 Alkaline Phosphatase 70 Total Protein 6.5 Albumin 2.9 L Globulin 3.6 H Albumin/Globulin Ratio 0.8 L 10/20/18 10/19/18 07:05 21:41 WBC 14.6 H RBC 4.25 Hgb 11.2 L Hct 33.7 L MCV 79.2 L MCH 26.3 L MCHC 33.2 RDW 14.7 Plt Count 238 MPV 8.6 Neut % (Auto) 81.0 H Lymph % (Auto) 12.2 [place] % (Auto) 5.7 Eos % (Auto) 1.0 Baso % (Auto) 0.1 Neut # (Auto) 11.8 H Lymph # (Auto) 1.8 [place] # (Auto) 0.8 Eos # (Auto) 0.2 Baso # (Auto) 0.0 Specimen Source Right radial O2 % 3 lpm nc ABG pH 7.37 ABG pCO2 50.8 H ABG pO2 59.3 L ABG HCO3 29.0 H ABG Total CO2 30.5 H ABG O2 Saturation 89 L ABG Base Excess 3.8 H Jacky Test Acceptable Sodium Potassium Chloride Carbon Dioxide Anion Gap BUN Creatinine Estimated Creat Clear Estimated GFR Est GFR ( Amer) Glucose Calcium Magnesium Total Bilirubin AST ALT Alkaline Phosphatase Total Protein Albumin Globulin Albumin/Globulin Ratio Preliminary micro results at discharge 10/17/18 12:15 Blood Culture - Preliminary Blood 10/17/18 12:15 Blood Culture - Preliminary Blood NO GROWTH AFTER 48 HOURS 10/18/18 20:30 Sputum Culture - Preliminary Sputum - Expectorated Sputum DS: Diagnosis - Discharge Diagnosis (1) Dyspnea Status: Acute (2) Asthmatic bronchitis Status: Chronic (3) Community acquired bacterial pneumonia Status: Acute (4) Obesity Status: Chronic (5) Pulmonary hypertension Status: Chronic (6) Systemic hypertension Status: Acute (7) Cardiomyopathy Status: Acute (8) Mitral regurgitation Status: Acute (9) Complete left bundle branch block (LBBB) determined by ECG Status: Acute Discharge Plan - Patient Discharge Instructions ACTIVITY: Bed rest DIET: continue same diet Patient Instructions: DI for Pneumonia -- Adult, Spironolactone, DI for Hypoxia - Follow up Plan Disposition: Xfer Short-Term Hosp Home Medications: Home Medications Medication Instructions Recorded Confirmed Type albuterol sulfate HFA 90 2 puff INHALATION Q6H PRN 09/09/17 10/17/18 History mcg/actuation aerosol inhaler carvedilol 25 mg tablet 25 mg PO BID 90 Days #360 tab 09/09/17 10/18/18 History diazepam 5 mg tablet 5 mg PO DAILY 30 Days #60 09/09/17 10/18/18 History diclofenac sodium 75 mg 75 mg PO DAILY 90 Days #180 09/09/17 10/18/18 History tablet,delayed release losartan 25 mg tablet 25 mg PO DAILY 09/09/17 10/18/18 History multivitamin,fr-snma-trodttrm 1 tab PO DAILY 09/09/17 10/18/18 History tablet triamterene 37.5 1 tab PO DAILY 09/09/17 10/18/18 History mg-hydrochlorothiazide 25 mg tablet Fluticasone/Salmeterol [Advair 1 inhalation IH BID 10/18/18 10/18/18 History 250/50mcg Diskus] Prescriptions/Medication Reconciliation: New Bisacodyl [Dulcolax 5mg Tablet] 5 mg PO DAILYP PRN tablet. PRN Reason: Constipation diazePAM [diazePAM 5mg Tablet] 2.5 mg PO BIDP PRN tablet PRN Reason: Anxiety Fluticasone/Salmeterol [Advair 250/50mcg Diskus] 1 puffs IH BIDRT puff Levalbuterol HCl [Xopenex 1.25mg/3mL neb] 1.25 mg IH Q6H vial.neb Irbesartan [Avapro 75mg tablet] 75 mg PO BID tablet Nystatin [Nystatin Susp 500,000 Units/5mL Udc] 500,000 unit PO QID udc Potassium Chloride [Klor-con 20 mEq tablet] 40 meq PO BID tablet Spironolactone [Aldactone 25mg Tab] 25 mg PO BID tablet Azithromycin [Zithromax 500mg ADV] 500 mg IV Q24H vial.port Piperacillin/Tazo [Zosyn 4.5gm ADV] 4.5 gm IV Q6H vial.port Aspirin [Aspirin 81mg EC Tab] 81 mg PO DAILY tablet. Triamterene/Hydrochlorothiazid [Dyazide 37.5/25mg capsule] 1 each PO DAILY capsule Continue carvedilol 25 mg tablet 25 mg PO BID 90 Days #360 tab Discontinued diazepam 5 mg tablet 5 mg PO DAILY 30 Days #60 diclofenac sodium 75 mg tablet,delayed release 75 mg PO DAILY 90 Days #180 losartan 25 mg tablet 25 mg PO DAILY triamterene 37.5 mg-hydrochlorothiazide 25 mg tablet 1 tab PO DAILY multivitamin,tv-gtuj-preckmax tablet 1 tab PO DAILY albuterol sulfate HFA 90 mcg/actuation aerosol inhaler 2 puff INHALATION Q6H PRN PRN Reason: ASTHMA Fluticasone/Salmeterol [Advair 250/50mcg Diskus] 1 inhalation IH BID
== END 2018-10-20 22:00 | disposition short-term general hospital (02) | DRG 194 ==
LOC: ER 11:55 → 2ND 16:10 → ICU 10-19 21:47
PROVIDERS: ADMIT Family Medicine; ATTEND Internal Medicine Adolescent Medicine
CPT/HCPCS: 36415; 71010; 71045; 80048; 80053; 82803; 83605; 83735; 83880; 84484; 85007; 85025; 87040; 87070; 87077; 87205; 93005; 93306; 94640; 94660; 94761; 96365; 96375; 99285; J0456; J1956; J2543

== ENCOUNTER → 2018-11-17 10:27 | Outpatient (CLI) | payer MEDICARE, OTHER, SELFPAY ==
[2018-11-17 10:32] LABS: Microscopic, Urine URINE MICROSCOPIC (MICROSCOPIC)
[2018-11-17 13:49] LABS: Basophils % 0.3 % (0.1-2.0); Eosinophils # 0.4 K/mm3 (0.0-0.4); Eosinophils % 5.3 % (0.1-12.0); Hematocrit 33.7 % (37.0-47.0); Hemoglobin 10.8 g/dL (12.2-16.2); Lymphocytes # 1.7 K/mm3 (0.7-4.5); Lymphocytes % 22.5 % (10-50); Mean Corpuscular HGB Conc 32.1 g/dL (31.8-35.4); Mean Corpuscular Hemoglobin 26.1 pg (27.0-31.2); Mean Corpuscular Volume 81.2 fl (81-99); Mean Platelet Volume 8.8 fl (7.4-10.4); Monocytes # 0.4 K/mm3 (0.1-1.0); Monocytes % 4.8 % (1.7-9.3); Neutrophils # 5.2 K/mm3 (1.8-7.8); Neutrophils % 67.1 % (37.0-80.0); Platelet Count 283 K/mm3 (142-424); Red Blood Count 4.16 M/mm3 (4.20-5.40); Red Cell Distribution Width 17.9 % (11.5-17.5); White Blood Count 7.7 K/mm3 (4.8-10.8)
[2018-11-17 14:02] LABS: Albumin Level 3.5 gm/dL (3.4-5.0); Anion Gap 15.4 mEq/L (5-15); Blood Urea Nitrogen 12 mg/dL (7-18); Carbon Dioxide 26 mmol/L (21.0-32.0); Chloride 103 mmol/L (98-107); Creatinine,Serum 0.84 mg/dL (0.55-1.02); Estimated Glomerular Filt Rate 66 ml/min (>60); GFR (African American) 80 ML/MIN (>60); Glucose 97 mg/dL (74-106); Potassium 3.4 mmoL/L (3.5-5.1); Sodium 141 mmol/L (136-145)
[2018-11-17 14:20] LABS: Appearance,Urine CLEAR (Clear); Bilirubin,Urine Negative (Negative); Blood, Urine Negative (Negative); Color,Urine YELLOW (Yellow); Glucose,Urine (UA) Negative (Negative); Ketones,Urine Negative (Negative); Leukocyte Esterase,Urine Negative (Negative); Nitrate,Urine Negative (Negative); Protein,Urine Negative (Negative); Urobilinogen,Urine 0.2 EU/dl (0.2)
[2018-11-17 14:26] LABS: Creatinine,Urine Random 25 mg/dL (20-320); Total Protein,Urine Random 6.3 mg/dL (0.0-11.9)
[2018-11-17 14:30] LABS: Bacteria,Urine Trace /lpf; WBC,Urine Occasional #/hpf (0-3)
== END ==
PROVIDERS: Visit Provider Internal Medicine Nephrology
DX: N17.9 Acute kidney failure, unspecified (principal)
CPT/HCPCS: 80069; 81001; 82570; 84155; 85025

== ENCOUNTER → 2018-12-14 11:05 | Outpatient (CLI) | payer MEDICARE, OTHER, SELFPAY ==
--- NOTE | 2018-12-14 11:15 | XR_ITS ---
XR knee LT 3V HISTORY: ITS.REASON: S/P FALL, LT KNEE PAIN ORDERING PHYSICIAN: Alfred Cantu PATIENT AGE: 78 years COMPARISON: None FINDINGS: No fracture or dislocation. No lytic or blastic change. Normal mineralization. No significant arthritic changes evident. No other significant findings IMPRESSION: Negative Knee
== END ==
PROVIDERS: PCP Internal Medicine; Visit Provider Internal Medicine
DX: M25.562 Pain in left knee (principal)
CPT/HCPCS: 73562

== ENCOUNTER 2019-02-02 14:05 | Outpatient (RCR) | payer MEDICARE, OTHER, SELFPAY | END 2019-03-26 15:32 | disposition home or self-care (01) | LOC: PT 14:05 | PROVIDERS: Visit Provider Internal Medicine Cardiovascular Disease | DX: I42.8 Other cardiomyopathies (principal) ==

== ENCOUNTER → 2019-03-01 16:15 | Outpatient (CLI) | payer MEDICARE, OTHER, SELFPAY ==
--- NOTE | 2019-03-01 16:23 | XR_ITS ---
EXAM: XR lumbar spine min 4V HISTORY: ITS.REASON: PAIN ORDERING PHYSICIAN: Alfred Cantu PATIENT AGE: 78 years COMPARISON: None FINDINGS: Bone density, alignment and vertebral body heights are normal. There is severe loss of disc space height at L1-2, L3-4 and L4-5 with small interspersed and vacuum disc changes with subchondral sclerosis at L1-2. Posterior elements appear to be intact. Impression: No acute process. 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
--- NOTE | 2019-03-01 16:23 | XR_ITS ---
XR pelvis 1-2V HISTORY: Fall with injury and pain ITS.REASON: PAIN ORDERING PHYSICIAN: Alfred Cantu PATIENT AGE: 78 years Comparison: None FINDINGS: Bone density is normal. Bilateral hip joint spaces and alignment appear normal. There is no fracture. There are metallic clips overlying the iliac bone areas bilaterally. There is a a few small pelvic phleboliths. There are degenerative changes in the lumbar spine. Impression: No acute process.
[2019-03-01 18:03] LABS: Hematocrit 35.2 % (37.0-47.0)
[2019-03-01 21:27] LABS: Anion Gap 9.3 mEq/L (5-15); Blood Urea Nitrogen 19 mg/dL (7-18); Calcium 9.1 mg/dL (8.5-10.1); Carbon Dioxide 34 mmol/L (21.0-32.0); Chloride 95 mmol/L (98-107); Creatinine,Serum 1.05 mg/dL (0.55-1.02); Estimated Glomerular Filt Rate 51 ml/min (>60); GFR (African American) 62 ML/MIN (>60); Glucose 104 mg/dL (74-106); Potassium 3.3 mmoL/L (3.5-5.1); Sodium 135 mmol/L (136-145)
== END ==
PROVIDERS: PCP Internal Medicine; Visit Provider Internal Medicine
DX: I10 Essential (primary) hypertension (principal); Z79.891 Long term (current) use of opiate analgesic
CPT/HCPCS: 72110; 72170; 80048; 85014; 87086

== ENCOUNTER → 2019-03-01 17:42 | Outpatient (CLI) | payer MEDICARE, OTHER, SELFPAY | PROVIDERS: Visit Provider Internal Medicine | DX: N39.0 Urinary tract infection, site not specified (principal); I10 Essential (primary) hypertension | CPT/HCPCS: 72110; 72170; 80048; 85014; 87086 ==

== ENCOUNTER 2019-04-06 14:00 | Outpatient (RCR) | payer MEDICARE, OTHER, SELFPAY ==
--- NOTE | 2019-03-05 11:38 | HMH.PTOPEV ---
PT Outpatient Evaluation Rehab PT Outpatient Evaluation Start: 03/05/19 10:12 Freq: Status: Active Protocol: Document 03/05/19 11:19 PDEMALICK (Rec: 03/05/19 11:38 [email or web address] [id number]) Electronically Signed By Spenser Winter, PT 03/05/19 11:19 Outpatient Therapy Subjective History Subjective History Pt. is a 78 year old female who presents to outpatient PT for complaints of chronic LB P! of insidous onset since 4 months ago. Pt. reports her LB began to hurt when she got out of a 16-day hospital stay for her kidneys , pneumonia, and heart . Pt. reports her symptoms worsen with sit<>stand, walking, and standing for a long period of time. Recent diagnostic imaging positive for chronic lumbar intervertebral osteochondrosis . Current medications include Amiodarone, Eliquis, Carvedilol, Lisinopril, Albuterol, Pro air, Aspirin, Diazepam, Advair, Singulair, Omeprazole. PMH includes Hysterectomy, Cholecystectomy, HTN, Hypokalemia, and an implantable cardioverter defibrillator or ICD. Chief Complaint Pain Symptom Type Sharp,Numbness,Tingling Symptoms Relieved By Heat Symptoms Aggravated By Standing,Bending/Stooping, Walking,Lifting Prior Functional Limitations None Current Functional Limitations Lifting,Housework,Standing, Squatting,Walking,Stairs, Balance Symptom Description Activity Dependent Level of pain today (0-10) 0 Pain scale - at its best (0-10) 0 Pain scale - at its worst (0-10) 8 Lumbopelvic Eval Posture Thoracic Spine Posture Standing Position Increased Kyphosis Lumbar Spine Posture Standing Position Flattened Assistive device Assistive Devices None / NA Gait Observation General Gait Pattern Observation No Deviations/Normal Palapation tenderness right thoracic spinal tenderness No lumbar spinal tenderness Yes: L1-L5 paraspinal tenderness Yes: L1-L5 buttock tenderness Yes Lumbar/Sacral Palpation Findings Tenderness Lumba
== END 2019-04-07 14:06 | disposition home or self-care (01) ==
LOC: PT.CARL 14:00
PROVIDERS: PCP Internal Medicine; Visit Provider Internal Medicine
DX: M51.36 Other intervertebral disc degeneration, lumbar region (principal)
CPT/HCPCS: 97035; 97110; 97140; 97163

== ENCOUNTER → 2019-04-14 14:48 | Outpatient (CLI) | payer MEDICARE, OTHER, SELFPAY ==
--- NOTE | 2019-04-14 15:07 | CT_ITS ---
PROCEDURE: CT LUMBAR SPINE WO CON CLINICAL HISTORY: LOW BACK PAIN,H/O RADICULAR SYM RT LEG Low back pain with bilateral leg pain COMPARISON: from 03/01/2019 from 03/01/2019 TECHNIQUE: Axial images obtained with sagittal and coronal reformats. All CT scans at the facility use one or more dose reduction, viz: automated exposure control, ma/kV adjustment per patient size (including targeted exams where dose is matched to indication, i.e. head), or iterative reconstruction technique. FINDINGS: There is mild lumbar scoliosis convex left with straightening of the lumbar lordosis. T11-T12: Mild degenerative disc disease. T12-L1: Unremarkable. L1-L2: Severe degenerative disc disease with endplate subarticular cystic changes. L2-L3: Mild facet and ligamentum hypertrophy with mild bilateral lateral recess narrowing. L3-L4: Degenerate disc disease with facet and ligamentum hypertrophy and bilateral lateral recess and foraminal narrowing. L4-5: Degenerate disc disease with bulging disc and moderate facet and ligamentum hypertrophy and moderate bilateral foraminal narrowing. L5-S1: Mild bulging disc with moderate facet hypertrophic change with bilateral foraminal narrowing. There is an exophytic isodense to the projecting along the posterior aspect of the right kidney and may represent a renal cyst IMPRESSION: Multilevel lumbar spondylosis with degenerative disc disease, bulging disc, facet ligamentum hypertrophy with foraminal lateral recess narrowing. Please see above for detailed description at each level. Dictated by: Jacky Floyd MD 04/15/2019 06:05 Electronically signed by Jacky Floyd MD in [place] 04/15/2019 06:05
== END ==
PROVIDERS: PCP Internal Medicine; Visit Provider Internal Medicine
DX: M54.5 Low back pain (principal)
CPT/HCPCS: 72131

== ENCOUNTER → 2019-04-19 14:10 | Outpatient (POV) | payer MEDICARE, OTHER, SELFPAY ==
[2019-04-19 14:33] VITALS: BP 162/81; PULSE 74; RESP 18; O2SAT 98; BMI 35.5
--- NOTE | 2019-04-20 08:47 | HMH.PMCON ---
Assessment and Plan (1) Degenerative joint disease (DJD) of lumbar spine Current visit: Yes Status: Chronic Qualifiers: Spinal osteoarthritis complication: with radiculopathy Qualified Code(s): M47.26 - Other spondylosis with radiculopathy, lumbar region Category: Medical Code(s): M47.816 - Spondylosis without myelopathy or radiculopathy, lumbar region (2) Lumbar radiculopathy Current visit: Yes Status: Chronic Category: Medical Code(s): M54.16 - Radiculopathy, lumbar region (3) Spinal stenosis, lumbar region with neurogenic claudication Current visit: Yes Status: Chronic Category: Medical Code(s): M48.062 - Spinal stenosis, lumbar region with neurogenic claudication - Assessment and plan all Dx Assessment and Plan for all problems:: We will start with an L4-L5 lumbar epidural steroid injection to see if this is beneficial for the patient. Patient will need to come off of her Eliquis prior to this we will contact Dr. Key's office to determine if this is appropriate. Patient and I also discussed very briefly the mild procedure. If she does not have relief from her epidurals this may be an option for her. Dr. Shabazz has reviewed this note and agrees with this plan of care. This note was dictated using voice recognition software and may contain errors or omissions HPI - Data of Consult Consult date: 04/20/19 Requesting Physician: Effie Jefferson APRN Primary Care Provider: Alfred Cantu - Consult Narrative Reason for consult: Back pain History of present illness: Ms. Jimenez is a 78 year old female who presents today for consultation in regards to her low back and leg pain. Patient recently had pneumonia and was hospitalized where she began to experience A. fib she had a pacemaker and a defibrillator placed this was 6 months ago. Since then she is been on blood thinner from Dr. Key. She has been unable to take any NSAIDs and she is got quite a bit of back pain radiating into her legs. Patient has a CT scan showing bulging disc along with spondylosis and ligamentum hypertrophy. She rates her pain today a 5 out of 10. She states that she has had no relief with physical therapy she does continue massage therapy that helps somewhat she also utilizes a TENS unit. CC: Effie Jefferson APRN [facility] History I have reviewed the patient's past medical history: Yes Medical History: Reports:: Anxiety, Heart Murmur, Hyperlipidemia (NOT MEDICATED), Hypertension, Lung Disease (asthma) Denies:: Diabetes Mellitus Type 1, Diabetes Mellitus Type 2, Internal Pacemaker, Seizures *Have you ever received a pneumonia vaccine?: Yes *Have you received a flu vaccine this season?: No Other Medical History: Denies: Blood Transfusion Reaction Other Surgeries: Yes: Appendectomy, Cardiac Catheterization (6 MONTHS AG0), Cholecystectomy, Hysterectomy-Total, Sinus Surgery. No: Pacemaker - *Social History Smoking Status: Never smoker Alcohol Intake: never *Occupational Status:: retired Housing: house Household Members: spouse *Travel in the last 8 weeks: None - Psychiatric History Pschychiatric History:: Reports:: Anxiety Family Hx:: No significant family history Review of Systems - Review of Systems ROS General: no recent weight change, no fever, no sleep disturbances Respiratory: no cough, no shortness of air, no recurring pulmonary infections Cardiovascular/Peripheral Vascular: No chest pain, No palpitations, no edema, no shortness of breath. Gastrointestinal: no incontinence, normal bowel movements reported Genitourinary: no incontinence Musculoskeletal: Back pain, leg pain Psychiatric: normal mood/ affect Neurological: Weakness lower extremities while walking, [denies balance issues] Meds Home Medications Medication Instructions Recorded Confirmed Type carvedilol 25 mg tablet 25 mg PO BID 90 Days #360 tab 09/09/17 10/18/18 History Aspirin [Aspirin 81mg EC Tab] 81 mg PO D
--- NOTE | 2019-04-20 08:50 | P.CONS_ITS ---
Assessment and Plan (1) Degenerative joint disease (DJD) of lumbar spine Current visit: Yes Status: Chronic Qualifiers: Spinal osteoarthritis complication: with radiculopathy Qualified Code(s): M47.26 - Other spondylosis with radiculopathy, lumbar region Category: Medical Code(s): M47.816 - Spondylosis without myelopathy or radiculopathy, lumbar region (2) Lumbar radiculopathy Current visit: Yes Status: Chronic Category: Medical Code(s): M54.16 - Radiculopathy, lumbar region (3) Spinal stenosis, lumbar region with neurogenic claudication Current visit: Yes Status: Chronic Category: Medical Code(s): M48.062 - Spinal stenosis, lumbar region with neurogenic claudication - Assessment and plan all Dx Assessment and Plan for all problems:: We will start with an L4-L5 lumbar epidural steroid injection to see if this is beneficial for the patient. Patient will need to come off of her Eliquis prior to this we will contact Dr. Key's office to determine if this is appropriate. Patient and I also discussed very briefly the mild procedure. If she does not have relief from her epidurals this may be an option for her. Dr. Shabazz has reviewed this note and agrees with this plan of care. This note was dictated using voice recognition software and may contain errors or omissions HPI - Data of Consult Consult date: 04/20/19 Requesting Physician: Effie Jefferson APRN Primary Care Provider: Alfred Cantu - Consult Narrative Reason for consult: Back pain History of present illness: Ms. Jimenez is a 78 year old female who presents today for consultation in regards to her low back and leg pain. Patient recently had pneumonia and was hospitalized where she began to experience A. fib she had a pacemaker and a defibrillator placed this was 6 months ago. Since then she is been on blood thinner from Dr. Key. She has been unable to take any NSAIDs and she is got quite a bit of back pain radiating into her legs. Patient has a CT scan showing bulging disc along with spondylosis and ligamentum hypertrophy. She rates her pain today a 5 out of 10. She states that she has had no relief with physical t herapy she does continue massage therapy that helps somewhat she also utilizes a TENS unit. CC: Effie Jefferson APRN [facility] History I have reviewed the patient's past medical history: Yes Medical History: Reports:: Anxiety, Heart Murmur, Hyperlipidemia (NOT MEDICATED), Hypertension, Lung Disease (asthma) Denies:: Diabetes Mellitus Type 1, Diabetes Mellitus Type 2, Internal Pacemaker, Seizures *Have you ever received a pneumonia vaccine?: Yes *Have you received a flu vaccine this season?: No Other Medical History: Denies: Blood Transfusion Reaction Other Surgeries: Yes: Appendectomy, Cardiac Catheterization (6 MONTHS AG0), Chol ecystectomy, Hysterectomy-Total, Sinus Surgery. No: Pacemaker - *Social History Smoking Status: Never smoker Alcohol Intake: never *Occupational Status:: retired Housing: house Household Members: spouse *Travel in the last 8 weeks: None - Psychiatric History Pschychiatric History:: Reports:: Anxiety Family Hx:: No significant family history Review of Systems - Review of Systems ROS General: no recent weight change, no fever, no sleep disturbances Respiratory: no cough, no shortness of air, no recurring pulmonary infections Cardiovascular/Peripheral Vascular: No chest pain, No palpitations, no edema, no shortness of breath. Gastrointestinal: no incontinence, normal bowel movements reported Genitourinary: no inconti
== END ==
PROVIDERS: PCP Internal Medicine; Visit Provider Clinical Nurse Specialist Family Health
DX: M47.816 Spondylosis without myelopathy or radiculopathy, lumbar region (principal); M48.062 Spinal stenosis, lumbar region with neurogenic claudication
CPT/HCPCS: 99202

== ENCOUNTER → 2019-06-14 13:46 | Outpatient (POV) | payer MEDICARE, OTHER, SELFPAY ==
[2019-06-14 14:10] VITALS: BP 122/68; PULSE 77; RESP 18; O2SAT 98; BMI 36.3
--- NOTE | 2019-06-15 09:23 | HMH.PAINSOAP ---
[facility] Pain Management SOAP Note Subjective:: Patient is a pleasant 78-year-old white female who presents today for follow-up after lumbar epidural steroid injection. Patient states she got 80% relief of her symptoms for over 3 weeks. She rates her pain a 6 out of 10. Patient is still having difficulty with standing and walking. Patient and I talked in depth of regards to the mild procedure. She does have ligament of flavum hypertrophy. We discussed repeating her epidural and she is interested in this. She is on Eliquis however she has permission to come off prior to her injection therapy. ROS General: no recent weight change, no fever, no sleep disturbances Respiratory: no cough, no shortness of air, no recurring pulmonary infections Cardiovascular/Peripheral Vascular: No chest pain, No palpitations, no edema, no shortness of breath. Gastrointestinal: no new onset incontinence, normal bowel movements reported Genitourinary: no new onset incontinence Musculoskeletal: Back pain, leg pain Psychiatric: normal mood/ affect, [denies depression], [denies anxiety] Neurological: [denies new onset weakness in extremities], [denies new onset balance issues] Objective:: Physical Exam General: Alert and oriented x3, no acute distress, pleasant and cooperative, [on room air] Lungs: Resps E/U, Symmetrical chest expansion, Eyes: PERRL Musculoskeletal: Flexion and extension of lumbar spine somewhat guarded secondary to pain, deep tendon reflexes normal, strength in upper and lower extremities [5/5], [abnormal gait noted] Neurological: speech clear, is manager equal, no gross sensory deficits Assessment:: Degenerative disc disease lumbar spine with lumbar radiculopathy, spinal stenosis with neurogenic claudication Plan:: we will repeat the L4-L5 lumbar epidural steroid injection we will also set her up for an epidurogram at the same time to help determine if she is a mild candidate. Dr. Shabazz has reviewed this note and agrees with this plan of care. This note was dictated using voice recognition software and may contain errors or omissions [facility] History I have reviewed the patient's past medical history: Yes Medical History: Reports:: Anxiety, Heart Murmur, Hyperlipidemia (NOT MEDICATED), Hypertension, Lung Disease (asthma) Denies:: Cancer, Diabetes Mellitus Type 1, Diabetes Mellitus Type 2, Internal Pacemaker, MRSA, Seizures *Have you ever received a pneumonia vaccine?: Yes *Have you received a flu vaccine this season?: Yes Other Medical History: Denies: Blood Transfusion Reaction Other Surgeries: Yes: Appendectomy, Cardiac Catheterization (6 MONTHS AG0), Cholecystectomy, Hysterectomy-Total, Sinus Surgery. No: Pacemaker Amputation: No Fractures: No - *Social History Smoking Status: Never smoker Alcohol Intake: never *Occupational Status:: other Housing: house Household Members: spouse *Travel in the last 8 weeks: None - Psychiatric History Pschychiatric History:: Reports:: Anxiety Family Hx:: No significant family history
--- NOTE | 2019-06-15 09:26 | P.CONS_ITS ---
[facility] Pain Management SOAP Note Subjective:: Patient is a pleasant 78-year-old white female who presents today for follow-up after lumbar epidural steroid injection. Patient states she got 80% relief of her symptoms for over 3 weeks. She rates her pain a 6 out of 10. Patient is still having difficulty with standing and walking. Patient and I talked in depth of regards to the mild procedure. She does have ligament of flavum hypertrophy. We discussed repeating her epidural and she is interested in this. She is on Eliquis however she has permission to come off prior to her injection therapy. ROS General: no recent weight change, no fever, no sleep disturbances Respiratory: no cough, no shortness of air, no recurring pulmonary infections Cardiovascular/Peripheral Vascular: No chest pain, No palpitations, no edema, no shortness of breath. Gastrointestinal: no new onset incontinence, normal bowel movements reported Genitourinary: no new onset incontinence Musculoskeletal: Back pain, leg pain Psychiatric: normal mood/ affect, [denies depression], [denies anxiety] Neurological: [denies new onset weakness in extremities], [denies new onset balance issues] Objective:: Physical Exam General: Alert and oriented x3, no acute distress, pleasant and cooperative, [on room air] Lungs: Resps E/U, Symmetrical chest expansion, Eyes: PERRL Musculoskeletal: Flexion and extension of lumbar spine somewhat guarded secondary to pain, deep tendon reflexes normal, strength in upper and lower extremities [5/5], [abnormal gait noted] Neurological: speech clear, packer sausage and wiener equal, no gross sensory deficits Assessment:: Degenerative disc disease lumbar spine with lumbar radiculopathy, spinal stenosis with neurogenic claudication Plan:: we will repeat the L4-L5 lumbar epidural steroid injection we will also set her up for an epidurogram at the same time to help determine if she is a mild candidate. Dr. Shabazz has reviewed this note and agrees with this plan of care. This note was dictated using voice recognition software and may contain errors or omissions [facility] History I have reviewed the patient's past medical history: Yes Medical History: Reports:: Anxiety, Heart Murmur, Hyperlipidemia (NOT MEDICATED), Hypertension, Lung Disease (asthma) Denies:: Cancer, Diabetes Mellitus Type 1, Diabetes Mellitus Type 2, Internal Pacemaker, MRSA, Seizures *Have you ever received a pneumonia vaccine?: Yes *Have you received a flu vaccine this season?: Yes Other Medical History: Denies: Blood Transfusion Reaction Other Surgeries: Yes: Appendectomy, Cardiac Catheterization (6 MONTHS AG0), Cholecystectomy, Hysterectomy-Total, Sinus Surgery. No: Pacemaker Amputation: No Fractures: No - *Social History Smoking Status: Never smoker Alcohol Intake: never *Occupational Status:: other Housing: house Household Members: spouse *Travel in the last 8 weeks: None - Psychiatric History Pschychiatric History:: Reports:: Anxiety Family Hx:: No significant family history
== END ==
PROVIDERS: PCP Internal Medicine; Visit Provider Clinical Nurse Specialist Family Health
DX: M51.16 Intervertebral disc disorders with radiculopathy, lumbar region (principal); M48.062 Spinal stenosis, lumbar region with neurogenic claudication
CPT/HCPCS: 99212

== ENCOUNTER → 2019-06-26 09:44 | Outpatient (CLI) | payer MEDICARE, OTHER, SELFPAY ==
--- NOTE | 2019-06-26 09:57 | XR_ITS ---
PROCEDURE: XR ANKLE RT MIN 3V CLINICAL INDICATION: S/P FALL WITH RIGHT ANKLE PAIN COMPARISON: No exams were available for comparison FINDINGS: There is mild diffuse soft tissue swelling both medially and laterally. Medial and lateral malleolus appear intact. The ankle mortise is normal. The calcaneus appears normal IMPRESSION: Mild diffuse soft tissue swelling, negative for fracture Dictated by: Dr. Taras Mcmahon MD 06/26/2019 10:[address] Taras Mcmahon MD in [place] 06/26/2019 10:32
--- NOTE | 2019-06-26 09:57 | XR_ITS ---
PROCEDURE: XR KNEE RT 3V CLINICAL INDICATION: S/P FALL WITH RIGHT KNEE PAIN Right knee pain after a fall COMPARISON: No exams were available for comparison FINDINGS: No fracture or dislocation. No lytic or blastic change. There is normal mineralization. The joint spaces are well-preserved. No significant degenerative/arthritic changes. No erosive changes evident. There is diffuse soft tissue swelling over the patella suggesting a diffuse contusion and/or possible fluid within the prepatellar bursa. Other findings:None. IMPRESSION: Diffuse soft tissue contusion over the patella versus and/or fluid within the prepatellar bursa, no fracture seen Dictated by: Dr. Taras Mcmahon MD 06/26/2019 10:[address] Taras Mcmahon MD in [place] 06/26/2019 10:31
== END ==
PROVIDERS: PCP Internal Medicine; Referring Provider Internal Medicine; Visit Provider Internal Medicine
DX: M25.561 Pain in right knee (principal); M25.571 Pain in right ankle and joints of right foot
CPT/HCPCS: 73562; 73610

== ENCOUNTER → 2019-08-16 09:38 | Outpatient (POV) | payer MEDICARE, OTHER, SELFPAY ==
[2019-08-16 09:54] VITALS: BP 155/80; PULSE 77; RESP 18; O2SAT 99; BMI 36.5
--- NOTE | 2019-08-16 10:09 | HMH.PAINSOAP ---
[facility] Pain Management SOAP Note Subjective:: Patient is a pleasant 78-year-old white female who presents today for follow-up after epidurogram. Patient has significant ligamentum flavum hypertrophy at L3-L4 L4-L5. She is a good candidate for the mild procedure. Patient has pain when standing and walking it is relieved with sitting and leaning forward. Patient cannot stand for over 5 minutes and she cannot walk for over 5 minutes. It is becoming difficult for her to complete activities of daily living. She rates her pain today a 7 out of 10. 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 Patient is tried several epidurals with no long-term success. ROS General: no recent weight change, no fever, no sleep disturbances Respiratory: no cough, no shortness of air, no recurring pulmonary infections Cardiovascular/Peripheral Vascular: No chest pain, No palpitations, no edema, no shortness of breath. Gastrointestinal: no new onset incontinence, normal bowel movements reported Genitourinary: no new onset incontinence Musculoskeletal: Back pain, leg pain Psychiatric: normal mood/ affect Neurological: [denies new onset weakness in extremities], [denies new onset balance issues] Objective:: Physical Exam General: Alert and oriented x3, no acute distress, pleasant and cooperative, [on room air] Lungs: Resps E/U, Symmetrical chest expansion, Eyes: PERRL Musculoskeletal: Flexion and extension of lumbar spine somewhat guarded secondary to pain, deep tendon reflexes normal, strength in upper and lower extremities [5/5], antalgic gait noted Neurological: speech clear, integration manager equal, no gross sensory deficits Assessment:: Degenerative disc disease lumbar spine with lumbar radiculopathy along with spinal stenosis with neurogenic claudication and ligamentum flavum hypertrophy Plan:: We will set her up for an L3-L4 L4-L5 minimally invasive lumbar decompression. Patient has permission to be off her anticoagulation therapy she is continuing a home stretching program. I will follow-up with her after this reassess her symptoms at that time she is been instructed to call the office if she has any issues prior to her next appointment. Dr. Shabazz has reviewed this note and agrees with this plan of care. This note was dictated using voice recognition software and may contain errors or omissions [facility] History I have reviewed the patient's past medical history: Yes Medical History: Reports:: Anxiety, Heart Murmur, Hyperlipidemia (NOT MEDICATED), Hypertension, Lung Disease (asthma) Denies:: Cancer, Diabetes Mellitus Type 1, Diabetes Mellitus Type 2, Internal Pacemaker, MRSA, Seizures *Have you ever received a pneumonia vaccine?: Yes *Have you received a flu vaccine this season?: Yes Other Medical History: Denies: Blood Transfusion Reaction Other Surgeries: Yes: Appendectomy, Cardiac Catheterization (6 MONTHS AG0), Cholecystectomy, Hysterectomy-Total, Sinus Surgery. No: Pacemaker Amputation: No Fractures: No - *Social History Smoking Status: Never smoker Alcohol Intake: never *Occupational Status:: other Housing: house Household Members: spouse *Travel in the last 8 weeks: None - Psychiatric History Pschychiatric History:: Reports:: Anxiety Family Hx:: No significant family history
== END ==
PROVIDERS: PCP Internal Medicine; Visit Provider Clinical Nurse Specialist Family Health
DX: M48.062 Spinal stenosis, lumbar region with neurogenic claudication (principal); M46.06 Spinal enthesopathy, lumbar region
CPT/HCPCS: 99212

== ENCOUNTER → 2019-08-30 13:56 | Outpatient (CLI) | payer MEDICARE, OTHER, SELFPAY ==
--- NOTE | 2019-08-30 14:01 | XR_ITS ---
PROCEDURE: XR KNEE RT 4V CLINICAL INDICATION: knee pain COMPARISON: [id number] KNEE-3 [id number] from 06/30/2017 XR KNEE RT 3V from 06/26/2019 FINDINGS: No fracture or dislocation. No lytic or blastic change. There is normal mineralization. The joint spaces are well-preserved. No significant degenerative/arthritic changes. No erosive changes evident. Other findings:None. IMPRESSION: No acute findings. Dictated by: Vincent Ji 08/30/2019 16:19 Electronically signed by Vincent Ji in [place] 08/30/2019 16:19
[2019-08-30 18:29] LABS: Anion Gap 8.6 mEq/L (5-15); Blood Urea Nitrogen 15 mg/dL (7-18); Calcium 8.8 mg/dL (8.5-10.1); Carbon Dioxide 34 mmol/L (21.0-32.0); Chloride 95 mmol/L (98-107); Creatinine,Serum 0.93 mg/dL (0.55-1.02); Estimated Glomerular Filt Rate 59 ml/min (>60); GFR (African American) 71 ML/MIN (>60); Glucose 86 mg/dL (74-106); Potassium 3.6 mmoL/L (3.5-5.1); Sodium 134 mmol/L (136-145)
== END ==
PROVIDERS: PCP Internal Medicine; Visit Provider Orthopaedic Surgery
DX: M25.561 Pain in right knee (principal); E87.6 Hypokalemia
CPT/HCPCS: 73564; 80048

== ENCOUNTER → 2019-09-13 10:30 | Outpatient (POV) | payer MEDICARE, OTHER, SELFPAY ==
[2019-09-13 11:35] VITALS: BP 127/77; PULSE 72; RESP 18; O2SAT 98; BMI 35.2
--- NOTE | 2019-09-13 12:01 | HMH.PAINSOAP ---
[facility] Pain Management SOAP Note Subjective:: Patient is a pleasant 79-year-old white female who presents today forfollow up after MILD procedure. patient is doing extremely well. She rates her pain a 3/10. She states that she can walk further and stand longer. She no longer has foot pain. ROS General: no recent weight change, no fever, no sleep disturbances Respiratory: no cough, no shortness of air, no recurring pulmonary infections Cardiovascular/Peripheral Vascular: No chest pain, No palpitations, no edema, no shortness of breath. Gastrointestinal: no new onset incontinence, normal bowel movements reported Genitourinary: no new onset incontinence Musculoskeletal: Back pain at times Psychiatric: normal mood/ affect, [denies depression], [denies anxiety] Neurological: [denies new onset weakness in extremities], [denies new onset balance issues] Objective:: Physical Exam General: Alert and oriented x3, no acute distress, pleasant and cooperative, [on room air] Lungs: Resps E/U, Symmetrical chest expansion, Eyes: PERRL Musculoskeletal: Flexion and extension of lumbar spine somewhat guarded secondary to pain, deep tendon reflexes normal, strength in upper and lower extremities [5/5], normal gait noted Neurological: speech clear, remittance clerk equal, no gross sensory deficits Assessment:: 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 Reassess her at that time she has been instructed to call the office if she has any issues prior to her next appointment. Patient may need physical therapy in the future. Follow-up with her in [address] Shabazz has reviewed this note and agrees with this plan of care. This note was dictated using voice recognition software and may contain errors or omissions [facility] History I have reviewed the patient's past medical history: Yes Medical History: Reports:: Anxiety, Asthma, Atrial Fibrillation, Gastroesophageal Reflux Disease(GERD), Heart Murmur, Hyperlipidemia, Hypertension, Internal Pacemaker, Lung Disease Denies:: Cancer, Diabetes Mellitus Type 1, Diabetes Mellitus Type 2, MRSA, Seizures *Have you ever received a pneumonia vaccine?: Yes *Have you received a flu vaccine this season?: Yes Other Medical History: Denies: Blood Transfusion Reaction Other Surgeries: Yes: Appendectomy, Cardiac Catheterization (6 MONTHS AG0), Cholecystectomy, Hysterectomy-Total, Pacemaker, Sinus Surgery, Other Amputation: No Fractures: No - *Social History Smoking Status: Never smoker Alcohol Intake: never Substance Use Type: denies use *Occupational Status:: other Housing: house Household Members: spouse *Travel in the last 8 weeks: None - Psychiatric History Pschychiatric History:: Reports:: Anxiety Family Hx:: No significant family history
== END ==
PROVIDERS: PCP Internal Medicine; Visit Provider Clinical Nurse Specialist Family Health
DX: M48.062 Spinal stenosis, lumbar region with neurogenic claudication (principal)
CPT/HCPCS: 99212

== ENCOUNTER → 2019-10-11 13:14 | Outpatient (POV) | payer MEDICARE, OTHER, SELFPAY ==
[2019-10-11 14:00] VITALS: BP 133/78; PULSE 70; RESP 20; O2SAT 96; BMI 36.5
--- NOTE | 2019-10-11 15:44 | HMH.PAINSOAP ---
[facility] Pain Management SOAP Note Subjective:: Patient is a pleasant 79-year-old white female who presents today for follow-up. Patient had a mild procedure and she is able to stand and walk slightly longer however her back pain has not been alleviated. Her pain is lower in nature. She does have a positive Palo's test Spenser's test and compression test bilaterally on her SI joint and's. I do believe she may benefit from some SI joint injections. She rates her pain today as 5 out of 10. ROS General: no recent weight change, no fever, no sleep disturbances Respiratory: no cough, no shortness of air, no recurring pulmonary infections Cardiovascular/Peripheral Vascular: No chest pain, No palpitations, no edema, no shortness of breath. Gastrointestinal: no new onset incontinence, normal bowel movements reported Genitourinary: no new onset incontinence Musculoskeletal: SI joint pain Psychiatric: normal mood/ affect Neurological: [denies new onset weakness in extremities], [denies new onset balance issues] Objective:: Physical Exam General: Alert and oriented x3, no acute distress, pleasant and cooperative, [on room air] Lungs: Resps E/U, Symmetrical chest expansion, Eyes: PERRL Musculoskeletal: Flexion and extension of lumbar spine somewhat guarded secondary to pain, deep tendon reflexes normal, strength in upper and lower extremities [5/5], antalgic gait noted Neurological: speech clear, food and beverage server equal, no gross sensory deficits Assessment:: 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 I will follow-up with her after this reassess her symptoms at that time she has been instructed to call the office if she has any issues prior to her next appointment. Dr. Shabazz has reviewed this note and agrees with this plan of care. This note was dictated using voice recognition software and may contain errors or omissions [facility] History I have reviewed the patient's past medical history: Yes Medical History: Reports:: Anxiety, Asthma, Atrial Fibrillation, Gastroesophageal Reflux Disease(GERD), Heart Murmur, Hyperlipidemia, Hypertension, Internal Pacemaker, Lung Disease Denies:: Cancer, Diabetes Mellitus Type 1, Diabetes Mellitus Type 2, MRSA, Seizures *Have you ever received a pneumonia vaccine?: Yes *Have you received a flu vaccine this season?: Yes Other Medical History: Denies: Blood Transfusion Reaction Other Surgeries: Yes: Appendectomy, Cardiac Catheterization (6 MONTHS AG0), Cholecystectomy, Hysterectomy-Total, Pacemaker, Sinus Surgery, Other Amputation: No Fractures: No - *Social History Smoking Status: Never smoker Alcohol Intake: never Substance Use Type: denies use *Occupational Status:: other Housing: house Household Members: spouse *Travel in the last 8 weeks: None - Psychiatric History Pschychiatric History:: Reports:: Anxiety Family Hx:: No significant family history
== END ==
PROVIDERS: PCP Internal Medicine; Visit Provider Clinical Nurse Specialist Family Health
DX: M48.062 Spinal stenosis, lumbar region with neurogenic claudication (principal); M46.1 Sacroiliitis, not elsewhere classified
CPT/HCPCS: 99212

== ENCOUNTER 2019-11-19 09:09 | Day surgery (SDC) | payer MEDICARE, OTHER, SELFPAY ==
[2019-11-19 09:28] VITALS: BP 169/82; PULSE 71; RESP 18; TEMP 36.4; O2SAT 97; BMI 36.3
[2019-11-19 09:49] VITALS: BP 148/81; PULSE 72; RESP 18
[2019-11-19 09:50] VITALS: BP 145/87; PULSE 72; RESP 18; O2SAT 98
--- NOTE | 2019-11-19 09:51 | HMH.PMPROC ---
- Procedure Date: 11/19/19 Time: 09:51 Anesthesiologist:: Adama Shabazz MD Complications:: None Pre-procedure Diagnosis:: Sacroiliitis Post-procedure Diagnosis:: Same Indications for Procedure:: This patient is a pleasant 79-year-old white female who is status post minimally invasive lumbar decompression which is helped with her low back pain and leg pain. She now has developed some bilateral hip pain. She is tender over both SI joints. She has a positive Michael's test bilaterally. She has a positive Ifeanyi test bilaterally. We will do bilateral SI joint injections today to see if this will help with her pain symptoms. Her pain is exacerbated and affecting activities of daily living. It is affecting her functionality. To keep the patient out of the emergency room and off oral opioids we will do her injections today. Procedure Details:: B/L SI joint injection under fluoroscopy Informed consent was obtained and the risks and benefits of the procedure was explained to the patient. The patient was taken to the procedure room and placed prone on the procedure table. The patient was prepped using ChloraPrep. The skin and subcutaneous tissues overlying the SI joints were anesthetized using lidocaine. I placed a 22-gauge needle first in the left SI joint and second in the right SI joint. Needle placement was confirmed with dye. After this we injected 5 mL bupivacaine 0.25% and Depo-Medrol 40 mg into each SI joint. Patient tolerated the procedure well with no complication. Plan and Disposition:: We will follow-up with her in 2 weeks. Will reevaluate her symptoms at that time.
[2019-11-19 10:02] VITALS: BP 145/89; PULSE 71; RESP 18; O2SAT 97
== END 2019-11-19 10:03 | disposition home or self-care (01) ==
LOC: SC.PAINP 09:11
PROVIDERS: PCP Internal Medicine; Visit Provider Anesthesiology
DX: M46.1 Sacroiliitis, not elsewhere classified (principal)
CPT/HCPCS: 27096; G0260; J1030; Q9966

== ENCOUNTER → 2019-12-06 11:13 | Outpatient (POV) | payer MEDICARE, OTHER, SELFPAY ==
[2019-12-06 11:34] VITALS: BP 99/61; PULSE 71; RESP 18; TEMP 36.6; O2SAT 99; BMI 32.8
--- NOTE | 2019-12-06 12:35 | P.CONS_ITS ---
[facility] Pain Management SOAP Note Subjective:: Is a pleasant 79-year-old white female who presents today for follow-up after bilateral SI joint injections. Patient also had a minimally invasive lumbar decompression which helped her back pain. Patient's main complaint is weakness in her low back and legs. We discussed physical therapy I do believe that would benefit her. She rates her pain a 6 out of 10 today. She also has fatty tumors that she is scheduled to have removed. ROS General: no recent weight change, no fever, no sleep disturbances Respiratory: no cough, no shortness of air, no recurring pulmonary infections Cardiovascular/Peripheral Vascular: No chest pain, No palpitations, no edema, no shortness of breath. Gastrointestinal: no new onset incontinence, normal bowel movements reported Genitourinary: no new onset incontinence Musculoskeletal: Back pain, leg pain Psychiatric: normal mood/ affect Neurological: [denies new onset weakness in extremities], [denies new onset balance issues] Objective:: Physical Exam General: Alert and oriented x3, no acute distress, pleasant and cooperative, [on room air] Lungs: Resps E/U, Symmetrical chest expansion, Eyes: PERRL Musculoskeletal: Flexion and extension of lumbar spine somewhat guarded secondary to pain, deep tendon reflexes normal, strength in upper and lower extremities [5/5], slightly antalgic gait noted Neurological: speech clear, retail beauty specialist equal, no gross sensory deficits Assessment:: Lumbar spinal stenosis and neurogenic claudication sacroiliitis Plan:: We will send the patient for physical therapy for strength in her low back and legs. I will follow-up with her in 6 weeks reassess her symptoms at that time she has been instructed to call the office if she has any issues prior to her next appointment. We specifically discussed risk factors for Covid-19 including age, heart or lung disease, diabetes, immunosuppression and travel. We also discussed that NSAIDs may worsen Covid-19 infection symptoms and that they should not be used to treat Covid-19 symptoms. Patient was also informed that corticosteroids in any form oral or injectable will decrease immune response and may increase risk of Covid-[address] Shabazz has reviewed this patient's chart and this note and agrees with plan of care. Patient has been instructed to call the office if they have any issues prior to the next appointment. [facility] History I have reviewed the patient's past medical history: Yes Medical History: Reports:: Anxiety, Asthma, Atrial Fibrillation, Gastroesophageal Reflux Disease(GERD), Heart Murmur, Hyperlipidemia, Hypertension, Internal Pacemaker, Lung Disease Denies:: Cancer, Diabetes Mellitus Type 1, Diabetes Mellitus Type 2, MRSA, Seizures *Have you ever received a pneumonia vaccine?: Yes *Have you received a flu vaccine this season?: Yes Other Medical History: Denies: Blood Transfusion Reaction Other Surgeries: Yes: Appendectomy, Cardiac Catheterization (6 MONTHS AG0), Cholecystectomy, Hysterectomy-Total, Pacemaker, Sinus Surgery, Other Amputation: No Fractures: No - *Social History Smoking Status: Never smoker Alcohol Intake: never Substance Use Type: denies use *Occupational Status:: other Housing: house Household Members: spouse *Travel in the last 8 weeks: None - Psychiatric History Pschychiatric History:: Reports:: Anxiety Family Hx:: No significant family history
== END ==
PROVIDERS: PCP Internal Medicine; Visit Provider Clinical Nurse Specialist Family Health
DX: M48.062 Spinal stenosis, lumbar region with neurogenic claudication; M46.1 Sacroiliitis, not elsewhere classified
CPT/HCPCS: 99212

== ENCOUNTER → 2020-01-11 10:05 | Outpatient (CLI) | payer MEDICARE, OTHER, SELFPAY ==
--- NOTE | 2020-01-11 10:05 | US_ITS ---
PROCEDURE: US EXTREMITY RT LIMITED CLINICAL INDICATION: lipoma Palpable abnormality in the right buttock COMPARISON: No exams were available for comparison FINDINGS: There is an isoechoic subcutaneous area of echogenicity measuring 3 x 3 x 1.5 cm. This has the appearance of a lipoma. However, there are 2 areas of decreased echogenicity within the lipomata is region. These are questionable etiology. These areas of decreased echogenicity measure 4 mm each IMPRESSION: Probable lipoma in the right buttock region. There are however 2 areas of decreased echogenicity in this area of lipoma etiology indeterminate. Follow-up suggested. CT may provide further evaluation. Cystic development is considered. Fat necrosis or abscess is included in the differential diagnosis.. Dictated by: Jacky Floyd MD 01/11/2020 16:18 Electronically signed by Jacky Floyd MD in [place] 01/11/2020 16:18
== END ==
PROVIDERS: PCP Internal Medicine; Visit Provider Surgery
DX: D17.9 Benign lipomatous neoplasm, unspecified (principal); D17.1 Benign lipomatous neoplasm of skin and subcutaneous tissue of trunk
CPT/HCPCS: 76882

== ENCOUNTER 2020-01-13 15:00 | Outpatient (RCR) | payer MEDICARE, OTHER, SELFPAY ==
--- NOTE | 2019-12-10 15:55 | HMH.PTOPEV ---
PT Outpatient Evaluation Rehab PT Outpatient Evaluation Start: 12/10/19 15:18 Freq: Status: Active Protocol: Document 12/10/19 15:19 TIM (Rec: 12/10/19 15:55 TIM [id number]) Electronically Signed By Benjamin Robles, PT 12/10/19 15:19 Outpatient Therapy Subjective History Subjective History Pt reports h/o chronic LBP for ~ 1 yr, 'since this fatty tumor came up on back'. Pt reports R>L sided LBP, no radicular s/s, however, reports increased stiffness in B hips. PMH: pneumonia w/ kidney and heart infection, followed by pacemaker/ fibrillator placement- . Pt reports genralized deconditioning since hospitalization in . Chief Complaint Pain,Stiff,Weakness Symptom Type Ache,Dull Symptoms Relieved By Rest/Positioning,Heat Symptoms Aggravated By Sitting,Standing,Physical Activity,Walking Prior Functional Limitations Lifting,Housework,Standing, Sitting,Walking Current Functional Limitations Lifting,Housework,Standing, Sitting,Walking,Bending/ Stooping Symptom Description Constant but Variable Level of pain today (0-10) 5 Pain scale - at its best (0-10) 5 Pain scale - at its worst (0-10) 9 Lumbopelvic Eval Posture Thoracic Spine Posture Standing Position Flattened Lumbar Spine Posture Standing Position Neutral Gait Observation General Gait Pattern Observation Antalgic Gait,Wide Based Gait Palapation tenderness bilateral thoracic spinal tenderness Yes: 2/4 lumbar spinal tenderness Yes: 3/4 paraspinal tenderness Yes: 3/4 buttock tenderness Yes: 2/4 Lumbar/Sacral Palpation Findings Tenderness Accessory Movement T-spine Vertebrae Accessory Movements Central P/A [place] that Elicit Symptoms T10 bilateral T11 bilateral T12 bilateral L-spine Vertebrae Accessory Movements Central P/A [place] that Elicit Symptoms L2 bilateral L3 bilateral L4 bilateral L5 bilateral S1 bilateral Range of Motion Lumbar Spine Active Flexion Range of 0-30 Motion (degrees) Lumbar Spine Active Extension Range of 0 Motion (deg
== END 2020-01-13 15:05 | disposition home or self-care (01) ==
LOC: PT 15:00
PROVIDERS: PCP Internal Medicine; Visit Provider Clinical Nurse Specialist Family Health
DX: M54.5 Low back pain (principal)
CPT/HCPCS: 97010; 97110; 97140; 97163

== ENCOUNTER 2020-01-21 13:47 | Day surgery (SDC) | payer MEDICARE, OTHER, SELFPAY ==
[2020-01-21 13:57] VITALS: BP 174/101; PULSE 74; RESP 18; TEMP 36.8; O2SAT 97; BMI 36.7
[2020-01-21 14:32] VITALS: BP 133/85; PULSE 85; RESP 18; O2SAT 99
[2020-01-21 14:33] VITALS: BP 145/78; PULSE 85; RESP 18; O2SAT 98
[2020-01-21 14:40] VITALS: BP 189/87; PULSE 72; RESP 18; O2SAT 97
--- NOTE | 2020-01-21 14:42 | P.PCN_ITS ---
- Procedure Date: 01/21/20 Time: 14:42 Anesthesiologist:: Adama Shabazz MD Complications:: None Pre-procedure Diagnosis:: Sacroiliitis Post-procedure Diagnosis:: Same Indications for Procedure:: This patient is a pleasant 79-year-old white female who we are treating for bilateral hip pain. She has some tenderness over both SI joints and weakness in her low back and legs. She is tender over both SI joints. She has a positive Michael's test bilaterally. She has a positive Ifeanyi test bilaterally. She has a positive bilateral joint compression test. We will do bilateral SI joint in jections today to help her with her pain symptoms. She is currently on Eliquis so we will not be able to do a epidural steroid injection until she comes off of her Eliquis. Procedure Details:: B/L SI joint injection under fluoroscopy Informed consent was obtained and the risks and benefits of the procedure was explained to the patient. The patient was taken to the procedure room and placed prone on the procedure table. The patient was prepped using ChloraPrep. The skin and subcutaneous tissues overlying the SI joints were anesthetized using lidocaine. I placed a 22-gauge needle first in the left SI joint and second in the right SI joint. Needle placement was confirmed with dye. After this we injected 5 mL bupivacaine 0.25% and Depo-Medrol 40 mg into each SI joint. Patient tolerated the procedure well with no complication. Plan and Disposition:: We will follow-up with her in 2 weeks. Will reevaluate her symptoms at that lena e.
== END 2020-01-21 14:40 | disposition home or self-care (01) ==
LOC: SC.PAINP 13:51
PROVIDERS: PCP Internal Medicine; Visit Provider Anesthesiology
DX: M46.1 Sacroiliitis, not elsewhere classified (principal); I10 Essential (primary) hypertension; I48.91 Unspecified atrial fibrillation; Z88.2 Allergy status to sulfonamides; Z91.040 Latex allergy status; Z95.0 Presence of cardiac pacemaker; J45.909 Unspecified asthma, uncomplicated; I34.0 Nonrheumatic mitral (valve) insufficiency; M19.90 Unspecified osteoarthritis, unspecified site; M48.062 Spinal stenosis, lumbar region with neurogenic claudication; E66.9 Obesity, unspecified; Z79.899 Other long term (current) drug therapy; Z79.82 Long term (current) use of aspirin
CPT/HCPCS: 27096; G0260; J1040; Q9966

== ENCOUNTER → 2020-02-01 10:13 | Outpatient (CLI) | payer MEDICARE, OTHER, SELFPAY ==
[2020-02-01 10:46] LABS: Basophils # 0.1 K/mm3 (0-0.2); Basophils % 0.5 % (0.1-2.0); Eosinophils # 0.4 K/mm3 (0.0-0.4); Eosinophils % 2.1 % (0.1-12.0); Hematocrit 35.2 % (37.0-47.0); Hemoglobin 11.4 g/dL (12.2-16.2); Lymphocytes # 4.4 K/mm3 (0.7-4.5); Mean Corpuscular HGB Conc 32.3 g/dL (31.8-35.4); Mean Corpuscular Hemoglobin 24.2 pg (27.0-31.2); Mean Corpuscular Volume 74.8 fl (81-99); Mean Platelet Volume 8.7 fl (7.4-10.4); Monocytes # 1.4 K/mm3 (0.1-1.0); Monocytes % 7.1 % (1.7-9.3); Neutrophils % 67.3 % (37.0-80.0); Platelet Count 298 K/mm3 (142-424); Red Blood Count 4.71 M/mm3 (4.20-5.40); Red Cell Distribution Width 17.2 % (11.5-17.5); White Blood Count 19.2 K/mm3 (4.8-10.8)
[2020-02-01 10:48] LABS: MANUAL DIFFERENTIAL MANUAL DIFFERENTIAL (MANUAL DIFF)
[2020-02-01 11:13] LABS: Anion Gap 9.8 mEq/L (5-15); Blood Urea Nitrogen 16 mg/dl (7-17); Calcium 9.2 mg/dl (8.4-10.2); Carbon Dioxide 32 mmol/L (22.0-30.0); Chloride 93 mmol/L (98-107); Estimated Glomerular Filt Rate 81 ml/min (>60); GFR (African American) 98 ML/MIN (>60); Glucose 92 mg/dl (74-100); Potassium 3.8 mmoL/L (3.5-5.1); Sodium 131 mmol/L (136-145)
[2020-02-01 11:26] LABS: Coronavirus 19 IgG Antibody Negative (Negative); Coronavirus 19 IgM Antibody Negative (Negative)
[2020-02-01 12:27] LABS: Anisocytosis 1+; Eosinophils % 2 % (0-3); Lymphocytes % 20 % (10-50); Microcytosis 1+; Monocytes % 2 % (2-9); Neutrophils % 76 % (42-76); Total Cells Counted 100
[2020-02-01 12:28] LABS: Hypochromasia 1+; Platelet Estimate Normal; Poikilocytosis 2+; Stomatocytes 2+
== END ==
PROVIDERS: Visit Provider Surgery
DX: Z01.812 Encounter for preprocedural laboratory examination (principal); D17.9 Benign lipomatous neoplasm, unspecified; Z01.84 Encounter for antibody response examination
CPT/HCPCS: 36415; 80048; 85007; 85025; 86328

== ENCOUNTER 2020-02-02 09:32 | Day surgery (SDC) | payer MEDICARE, OTHER, SELFPAY ==
[2020-01-31 13:32] VITALS: BMI 32.1
[2020-02-02 09:59] VITALS: BP 163/85; PULSE 72; RESP 18; TEMP 36.7; O2SAT 97
--- NOTE | 2020-02-02 10:03 | XR_ITS ---
PROCEDURE: XR CHEST PORTABLE CLINICAL HISTORY: surgrey COMPARISON: CHESTWO CT chest wo con from 03/03/2018 CXR2V XR chest 2V from 04/15/2018 CXR1VP XR chest portable from 10/17/2018 CXR1VP XR chest portable from 10/20/2018 FINDINGS: Mild degenerative thoracic scoliosis and a multilead pacemaker is noted. There is no pneumothorax. Lung rosario, cardiac silhouette, and the soft tissues are intact. There is a stable 4.7 millimeter calcified nodule in the right lower lobe IMPRESSION: Pacemaker, clear lung rosario, degenerative thoracic scoliosis, small right lower lobe calcified granuloma Dictated by: Clark Briceño 02/02/2020 10:42 Electronically signed by Clark Briceño in [facility] 02/02/2020 10:42
--- NOTE | 2020-02-02 10:04 | P.PN_ITS ---
[facility] Anesthesia Checklist - Structural Data Admitted From: Home Planned Operative Procedure/s: excision neoplasm back x 2 Consent for Planned Operative Procedure(s) Verified: Yes - Additional verifications Anesthesia Reactions: Yes (N/V) Hx Blood Transfusions: No Blood Transfusion Reaction: No - Airway Assessment C-Spine Mobility Assessed: Yes TMJ Mobility Assessed: Yes Dentition: Poor Dentition - Neurological Assessment Level of Consciousness: Awake, Alert, Appropriate - Anesthesia Plan Anesthesia Risk discussed: Yes Anesthesia Plan: Verified ASA Class: III Anesthesia Type: General [facility] History I have reviewed the patient's past medical history: Yes Medical History: Reports:: Anxiety, Asthma, Atrial Fibrillation, Gastroesophageal Reflux Disease(GERD), Heart Murmur, Hyperlipidemia, Hypertension, Internal Pacemaker, Lung Disease Denies:: Cancer, Diabetes Mellitus Type 1, Diabetes Mellitus Type 2, MRSA, Seizures *Have you ever received a pneumonia vaccine?: No *Have you received a flu vaccine this season?: No Other Medical History: Reports: Arthritis. Denies: Blood Transfusion Reaction Anesthesia experience/problems:: none Other Surgeries: Yes: Appendectomy, Cardiac Catheterization (6 MONTHS AG0), Cholecystectomy, Hysterectomy-Total, Pacemaker, Sinus Surgery, Other Amputation: No Fractures: No - *Social History Smoking Status: Never smoker Alcohol Intake: never Substance Use Type: denies use *Occupational Status:: retired Housing: house Household Members: spouse *Travel in the last 8 weeks: None - Psychiatric History Pschychiatric History:: Reports:: Anxiety Family Hx:: No significant family history
[2020-02-02 10:11] LABS: Microscopic, Urine URINE MICROSCOPIC (MICROSCOPIC)
[2020-02-02 10:13] LABS: Appearance,Urine CLEAR (Clear); Bilirubin,Urine Negative (Negative); Blood, Urine Negative (Negative); Color,Urine YELLOW (Yellow); Glucose,Urine (UA) Negative (Negative); Ketones,Urine Negative (Negative); Leukocyte Esterase,Urine TRACE (Negative); Nitrate,Urine Negative (Negative); Protein,Urine Negative (Negative); Specific Gravity, Urine 1.015 (1.005-1.030); Urobilinogen,Urine 0.2 EU/dl (0.2)
[2020-02-02 10:23] LABS: RBC,Urine Occasional #/hpf (0-3); Squamous Epithelial Cell,Urine Occasional #/hpf (0-5); Transitional Epi Cells,Urine OCC #/lpf (0-3)
[2020-02-02 13:27] VITALS: BP 70/41; PULSE 60; RESP 18; TEMP 36.1; O2SAT 92
--- NOTE | 2020-02-02 13:31 | HMH.OPNOTE ---
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 She is a 79-year-old female referred for lipoma on the back. She is normally under the care of Dr. Alfred Cantu. She has seen chronic pain management. She states that she was referred for this lipoma on the left cervicothoracic region over a year ago but had medical issues requiring hospitalization in [place] for quite some time. She states that she almost . She does have a history according to the medical record of pulmonary hypertension, cardiomyopathy, mitral regurgitation, complete left bundle branch block. She had AICD placed in [place]. Patient also stated that she had an area over her right post coccygeal region. She has some discomfort from the area on her left upper back when she lays on it. When I saw her initially in the office I felt that this area on the left cervicothoracic region was definitely most consistent with a lipoma. She still does complain of this area causing discomfort when walking. Last time I had seen her in the office the area to the right sacroiliac region appeared to be more consistent with a lipoma. She had had symptomatology at this location for at least a year and she did not undergo her injection and mild procedure until May and August. I had her undergo an ultrasound of this area and this is most consistent with a lipoma although there are some areas of low attenuation. Patient states that this area is quite severely painful and lifestyle limiting to her. Of note, she is on Eliquis and has had clearance by her manager epic, Dr. Key. Operative findings:: She had a couple of areas consistent with lobulated lipomatous tissue Operative note:: Patient was taken the operating room. She was positioned in a prone position. Adequate intravenous sedation was achieved. The areas were prepped and draped in the standard surgical fashion. Lesions were marked with a skin marker for planned incision. Local anesthetic was infiltrated. Attention was first turned to the right sacroiliac region lipoma. Skin incision was performed. Dissection was carried down through superficial subcutaneous tissues and subcutaneous fascia. Lobulated lipomatous tissue was encountered. Using blunt dissection with some Metzenbaum dissection and use of electrocautery this was dissected free. It was somewhat dissected free in a piecemeal fashion given its friability and due to the remaining surrounding normal lipomatous tissue. Dissection was carried down deeply into the wound. Wound was palpated and there appeared to be no additional palpable lesion. There was good hemostasis. 16's fascia was closed with a couple of interrupted 3-0 Vicryl sutures. Subdermal tissues were closed with a running 3-0 Vicryl. Skin was closed with 4-0 Monocryl in a running subcuticular fashion. Incision measured approximately 6 cm. Next attention was turned to the lesion in the left trapezius area. This was marked with a skin marker. Local anesthetic was infiltrated. Once again skin incision was made and dissection was carried down through superficial normal-appearing subcutaneous tissues and subcutaneous fascia. A lobulated lipoma was encountered. This was easily delivered. Remaining attachments were incised with electrocautery. This was sent off as specimen. Hemostasis was achieved with electrocautery. Local anesthetic was infiltrated. Subcutaneous fascia was closed with a couple of interrupted 3-0
[2020-02-02 13:42] VITALS: BP 90/57; PULSE 59; RESP 18; TEMP 36.1; O2SAT 96
[2020-02-02 13:57] VITALS: BP 109/61; PULSE 60; RESP 18; TEMP 36.1; O2SAT 97
[2020-02-02 14:12] VITALS: BP 128/66; PULSE 60; RESP 18; TEMP 36.1; O2SAT 97
[2020-02-02 14:32] VITALS: BP 130/59; PULSE 60; RESP 18; TEMP 36.1; O2SAT 97
== END 2020-02-02 14:32 | disposition home or self-care (01) ==
LOC: OR 09:33
PROVIDERS: PCP Internal Medicine; Visit Provider Surgery
DX: D17.1 Benign lipomatous neoplasm of skin and subcutaneous tissue of trunk (principal); I27.0 Primary pulmonary hypertension; I43 Cardiomyopathy in diseases classified elsewhere; I34.0 Nonrheumatic mitral (valve) insufficiency; I44.7 Left bundle-branch block, unspecified; R52 Pain, unspecified; Z79.899 Other long term (current) drug therapy; Z88.2 Allergy status to sulfonamides; Z91.040 Latex allergy status; Z79.82 Long term (current) use of aspirin; J45.909 Unspecified asthma, uncomplicated; K21.9 Gastro-esophageal reflux disease without esophagitis; E78.5 Hyperlipidemia, unspecified
CPT/HCPCS: 11406; 12031; 71045; 81001; 88304; 96374; J2405

== ENCOUNTER → 2020-02-24 14:28 | Outpatient (POV) | payer MEDICARE, OTHER, SELFPAY ==
[2020-02-24 15:35] VITALS: BP 142/88; PULSE 78; RESP 18; O2SAT 98; BMI 36.7
--- NOTE | 2020-02-24 15:40 | HMH.PAINSOAP ---
[facility] Pain Management SOAP Note Subjective:: Patient is a pleasant 79 year old female who presents today for follow up after bilateral SI joint injections. Patient is having pain low back that is radiating into her right buttock and right leg. She says that she got about 20% relief following the SI injections. 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 Patient says that she did not receive antibiotic therapy following the tumor removals. Patient says that the areas were benign. Incisions are healed appropriately at this time. She would like to discuss possible epidural steroid injection. She has undergone 2 epidural steroid injections this year and has gotten relief. She would like to undergo 1 more injection to see if this gives her long-term relief. She does rate her pain a 2 out of 10 today with sitting. She is on Eliquis. She does understand she would need to hold her medication injection. She is doing physical therapy and is scheduled for a physical therapy appointment on Friday. She is continue with a home stretching program as well. Review of Systems General: No recent weight changes, no fever, no sleep disturbances Respiratory: No cough, no shortness of air, no recurring pulmonary infections Cardiovascular/peripheral vascular: No chest pain, no palpitations, no edema, no shortness of breath Gastrointestinal: No new onset incontinence, normal bowel movements reported Genitourinary: No new onset incontinence Musculoskeletal: Low back pain with radiation into her right buttock and right leg. 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 She did not get much relief with the SI injections. We will proceed with a third lumbar epidural steroid injection at L4-L5. Patient is on Eliquis. She does understand she will need to hold the medication prior to the injection. We will see her back in the clinic after her injection to reassess her symptoms. She is undergoing physical therapy at this time. She is also continue with a home stretching program. She has been instructed to contact clinic if she has any concerns before next appointment. The patient and I specifically discussed risk factors for COVID19. These risks include, but are not limited to age greater than 60, heart or lung disease, diabetes, immunosuppression, and travel. We also discussed NSAIDs may worsen COVID19 infection or symptoms. Patient should not use NSAIDs to treat COVID19 signs or symptoms. Patient was also informed that any type of corticosteroid of any form (oral or injection) will decrease the patient's immune system response and may increase the likelihood of COVID19 infection [address] symptoms[address]. Shabazz has reviewed this note and agrees with this plan of care. This note was dictated using voice recognition software and make contain errors or omissions. [facility] History I have reviewed the patient's past medical history: Yes Medical History: Reports:: Anxiety, Asthma, Atrial Fibrillation, Gastroesophageal Reflux Disease(GERD), Heart Murmur, Hyperlipidemia, Hypertension, Internal Pacemaker, Lung Disease Denies:: Cancer, Diabetes Mellitus Type 1, Diabetes Mellitus Type 2, MRSA, Seizures *Have you ever
== END ==
PROVIDERS: PCP Internal Medicine; Visit Provider Clinical Nurse Specialist Family Health
DX: M51.16 Intervertebral disc disorders with radiculopathy, lumbar region (principal)
CPT/HCPCS: 99212

== ENCOUNTER → 2020-03-24 11:21 | Day surgery (SDC) | payer MEDICARE, OTHER, SELFPAY ==
[2020-03-24 11:31] VITALS: BP 194/95; PULSE 74; RESP 18; TEMP 36.5; O2SAT 95; BMI 35.2
[2020-03-24 13:17] VITALS: BP 142/78; PULSE 88; RESP 18; TEMP 36.6; O2SAT 99
[2020-03-24 13:19] VITALS: BP 132/79; PULSE 79; RESP 18; O2SAT 99
--- NOTE | 2020-03-24 13:20 | HMH.PMPROC ---
- Procedure Date: 03/24/20 Time: 13:20 Anesthesiologist:: Adama Shabazz MD Complications:: None Pre-procedure Diagnosis:: Degenerative disc disease of lumbar spine with lumbar radiculopathy symptoms Post-procedure Diagnosis:: Same Indications for Procedure:: Patient is a pleasant 79-year-old white female who we are treating for low back pain with lumbar radiculopathy symptoms. She is done well with epidural steroid injections in the past. Most of her pain is in the low back along her waistline. She has been off of her Eliquis since Friday. We will do a lumbar epidural steroid injection today to help her with her pain symptoms. Procedure Details:: Lumbar epidural steroid injection under fluoroscopy Informed consent was obtained and the risk and benefits of the procedure was explained to the patient. The patient was taken to the procedure room. The patient was placed prone on the procedure table. The patient was prepped and draped in sterile fashion. C-arm fluoroscopy was used to view the lumbar spine. Skin and subcutaneous tissues were anesthetized using lidocaine. I placed an 18-gauge epidural needle and advanced into the L4-L5 interspace using fluoroscopic guidance and [id number] to air. After confirmation of needle placement in the epidural space with dye I injected 2 mL of lidocaine 1.5% with Depo-Medrol 80 mg. Patient tolerated the procedure well with no complications. Plan and Disposition:: We will follow-up with her in 2 weeks. Will reevaluate symptoms at that time. She is to continue with her therapy and she can resume her Eliquis tomorrow.
== END ==
PROVIDERS: PCP Internal Medicine; Visit Provider Anesthesiology
DX: M51.16 Intervertebral disc disorders with radiculopathy, lumbar region (principal); I10 Essential (primary) hypertension; I25.10 Atherosclerotic heart disease of native coronary artery without angina pectoris; J45.909 Unspecified asthma, uncomplicated; I34.0 Nonrheumatic mitral (valve) insufficiency; Z79.01 Long term (current) use of anticoagulants; Z79.82 Long term (current) use of aspirin; Z79.899 Other long term (current) drug therapy; Z95.0 Presence of cardiac pacemaker; F41.9 Anxiety disorder, unspecified; F32.9 Major depressive disorder, single episode, unspecified; Z88.2 Allergy status to sulfonamides
CPT/HCPCS: 62323; J1040; Q9966

== ENCOUNTER 2020-04-27 15:00 | Outpatient (RCR) | payer MEDICARE, OTHER, SELFPAY | END 2020-04-27 16:01 | disposition home or self-care (01) | LOC: PT 15:00 | PROVIDERS: PCP Internal Medicine; Visit Provider Internal Medicine | DX: M54.5 Low back pain (principal) | CPT/HCPCS: 97010; 97014; 97035; 97110; 97163; 97164; G0283 ==

== ENCOUNTER → 2020-05-15 14:23 | Outpatient (CLI) | payer MEDICARE, OTHER, SELFPAY ==
--- NOTE | 2020-05-15 14:52 | ECG_ITS ---
APPROVED REPORT Exam: Resting ECG HR:70 bpm ECG Measurements Heart Rate 70 AXES SC 154 P 45 QRSd 140 QRS 166 QT 488 T 25 QTc 527 <Conclusion> Normal sinus rhythm Right bundle branch block LAHB Lateral infarct,Old vs.Limb lead reversal Abnormal ECG Electronically signed by : Alfred Cantu, 05/15/2020 15:23:55
== END ==
PROVIDERS: PCP Internal Medicine; Visit Provider Internal Medicine
DX: R06.02 Shortness of breath (principal)
CPT/HCPCS: 93005

== ENCOUNTER → 2020-05-26 15:11 | Outpatient (CLI) | payer MEDICARE, OTHER, SELFPAY ==
--- NOTE | 2020-05-26 15:16 | XR_ITS ---
PROCEDURE: XR CHEST 2V CLINICAL HISTORY: COUGHING/WHEEZING, AMNIRODION THERAPY COMPARISON: CT CHESTWO CT chest wo con from 03/03/2018 CR CXR1VP XR chest portable from 10/17/2018 CR CXR1VP XR chest portable from 10/20/2018 CR XR CHEST PORTABLE from 02/02/2020 FINDINGS: Normal heart size. Biventricular pacemaker present with right atrial lead. There is an azygos fissure as a normal variant. Scattered calcified granulomas. There is mild pleural thickening in the right midlung laterally not significantly changed there is mild hyperinflation which may be related to small airway disease. No lobar consolidation or collapse. The right lung is more dense than the left but is felt to be related to technique. No acute bony abnormalities. IMPRESSION: Suspect small airway disease or COPD with biventricular pacemaker in place. No lobar consolidation or collapse. Dictated by: Jacky Floyd MD 05/26/2020 16:46 Jacky Floyd MD in [place] 05/26/2020 16:46
== END ==
PROVIDERS: PCP Internal Medicine; Visit Provider Internal Medicine
DX: R05 Cough (principal); R06.2 Wheezing; Z79.899 Other long term (current) drug therapy
CPT/HCPCS: 71046

== ENCOUNTER → 2020-08-07 15:10 | Outpatient (CLI) | payer MEDICARE, OTHER, SELFPAY ==
--- NOTE | 2020-08-07 15:15 | XR_ITS ---
PROCEDURE: XR KNEE LT 3V CLINICAL INDICATION: FALL ON LT KNEE,PAIN/REDNESS COMPARISON: No exams were available for comparison FINDINGS: No fracture or dislocation. No lytic or blastic change. There is normal mineralization. The joint spaces are well-preserved. No significant degenerative/arthritic changes. There is prominent soft tissue swelling medially and anterior to the patella with increased attenuation suggesting prepatellar bursal fluid and or diffuse contusion. No erosive changes evident. There is no definite fluid within the knee joint. Other findings:None. IMPRESSION: Prominent soft tissue swelling over the patella with considerations as noted above Dictated by: Dr. Taras Mcmahon MD 08/07/2020 15:45 Dr. Taras Mcmahon MD in [place] 08/07/2020 15:45
== END ==
PROVIDERS: PCP Internal Medicine; Visit Provider Internal Medicine
DX: M25.562 Pain in left knee (principal)
CPT/HCPCS: 73562

== ENCOUNTER → 2020-08-17 14:01 | Outpatient (POV) | payer MEDICARE, OTHER, SELFPAY ==
[2020-08-17 14:28] VITALS: BP 135/79; PULSE 56; RESP 18; O2SAT 98; BMI 43.0
--- NOTE | 2020-08-17 15:55 | HMH.PAINSOAP ---
[facility] Pain Management SOAP Note Subjective:: Patient is a pleasant 79-year-old white female who we are treating for low back pain. Patient had a minimally invasive lumbar decompression. She states that she does not feel that this was very effective for her pain. Patient states that she has back pain that is not radiating. She states she is able to stand a little bit longer than prior. Patient does have a CT scan showing facet arthropathy. She has positive lumbar facet loading. We discussed a medial branch block/facet joint injection for potential neurotomy. Patient rates her pain a 5 out of 10. She is on anticoagulation therapy however we have permission for her to come off prior to injections. I discussed with her that this is diagnostic in nature. She understands this. ROS General: no recent weight change, no fever, no sleep disturbances Respiratory: no cough, no shortness of air, no recurring pulmonary infections Cardiovascular/Peripheral Vascular: No chest pain, No palpitations, no edema, no shortness of breath. Gastrointestinal: no new onset incontinence, normal bowel movements reported Genitourinary: no new onset incontinence Musculoskeletal: Back pain Psychiatric: normal mood/ affect Neurological: [denies new onset weakness in extremities], [denies new onset balance issues] Objective:: Physical Exam General: Alert and oriented x3, no acute distress, pleasant and cooperative, [on room air] Lungs: Resps E/U, Symmetrical chest expansion, Eyes: PERRL Musculoskeletal: Flexion and extension of lumbar spine somewhat guarded secondary to pain, deep tendon reflexes normal, strength in upper and lower extremities [5/5], [abnormal gait noted] Neurological: speech clear, 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 If she does well with this she may be a neurotomy candidate. Patient symptomology leads me to believe that this would be very beneficial for her. I will follow-up with her after her injection reassess her symptoms at that time she has been instructed to call the office if she has any issues prior to her next appointment. Dr. Shabazz has reviewed this note and agrees with this plan of care. This note was dictated using voice recognition software and may contain errors or omissions [facility] History I have reviewed the patient's past medical history: Yes Medical History: Reports:: Anxiety, Asthma, Atrial Fibrillation, Gastroesophageal Reflux Disease(GERD), Heart Murmur, Hyperlipidemia, Hypertension, Internal Pacemaker, Lung Disease Denies:: Cancer, Diabetes Mellitus Type 1, Diabetes Mellitus Type 2, MRSA, Seizures *Have you ever received a pneumonia vaccine?: Yes *Have you received a flu vaccine this season?: Yes Other Medical History: Reports: Arthritis. Denies: Blood Transfusion Reaction Other Surgeries: Yes: Appendectomy, Cardiac Catheterization (6 MONTHS AG0), Cholecystectomy, Colonoscopy, Hysterectomy-Total, Pacemaker, Sinus Surgery, Other Amputation: No Fractures: No - *Social History Smoking Status: Never smoker Alcohol Intake: never Substance Use Type: denies use *Occupational Status:: other Housing: house Household Members: spouse *Travel in the last 8 weeks: None - Psychiatric History Pschychiatric History:: Reports:: Anxiety Family Hx:: No significant family history
== END ==
PROVIDERS: PCP Internal Medicine; Visit Provider Clinical Nurse Specialist Family Health
DX: M51.36 Other intervertebral disc degeneration, lumbar region (principal); M54.06 Panniculitis affecting regions of neck and back, lumbar region; M47.816 Spondylosis without myelopathy or radiculopathy, lumbar region
CPT/HCPCS: 99212; G0463

== ENCOUNTER 2020-09-08 10:47 | Day surgery (SDC) | payer MEDICARE, OTHER, SELFPAY ==
[2020-09-08 10:52] VITALS: BP 181/88; PULSE 94; RESP 18; TEMP 36.4; O2SAT 98; BMI 37.7
[2020-09-08 11:44] VITALS: BP 150/89; PULSE 74; RESP 18; O2SAT 98
[2020-09-08 11:45] VITALS: BP 148/88; PULSE 74; RESP 18; O2SAT 99
--- NOTE | 2020-09-08 11:54 | HMH.PMPROC ---
- Procedure Date: 09/08/20 Time: 11:54 Anesthesiologist:: Adama Shabazz MD Complications:: None Pre-procedure Diagnosis:: Degenerative disc disease of lumbar spine with lumbar radiculopathy symptoms and lumbar facet arthropathy with lumbar spondylosis Post-procedure Diagnosis:: Same Indications for Procedure:: Patient is a pleasant 79-year-old white female who we are treating for low back pain with lumbar spondylosis and lumbar facet arthropathy. She has increasing pain in her lower lumbar area. She is status post minimally invasive lumbar decompression which is not helped her tremendously she has facet related pain we will do a right L4-L5 and L5-S1 medial branch block/facet joint injection today to see if this helps with some of her pain symptoms. Procedure Details:: Lumbar medial branch block Informed consent was obtained and the risks and benefits of the procedure was explained to the patient. The back was prepped using ChloraPrep. The skin and subcutaneous tissues were anesthetized using lidocaine. I placed 22-gauge spinal needles into the facet joint/medial branches of L4-L5 and L5-S1 bilaterally. Needle placement was confirmed with dye. After this we injected 3 mL bupivacaine 0.25% and Depo-Medrol 20 mg into each facet joint/medial branch of L4-L5 and L5-S1 bilaterally. We used a total of 40 mg Depo-Medrol for both levels. The patient tolerated the procedure well with no complications. Plan and Disposition:: We will follow-up with her in 2 weeks. Will reevaluate symptoms at that time. If successful we will plan on RF ablation to the facet joints of L4-5 and L5-S1.
[2020-09-08 12:04] VITALS: BP 181/95; PULSE 74; RESP 18; O2SAT 98
== END 2020-09-08 12:06 | disposition home or self-care (01) ==
LOC: SC.PAINP 10:49
PROVIDERS: PCP Internal Medicine; Visit Provider Anesthesiology
DX: M51.16 Intervertebral disc disorders with radiculopathy, lumbar region (principal); M47.896 Other spondylosis, lumbar region; M54.06 Panniculitis affecting regions of neck and back, lumbar region; I27.20 Pulmonary hypertension, unspecified; Z88.2 Allergy status to sulfonamides; Z88.1 Allergy status to other antibiotic agents; J45.909 Unspecified asthma, uncomplicated; I10 Essential (primary) hypertension
CPT/HCPCS: 64493; 64494; J1040; Q9966

== ENCOUNTER 2020-10-27 12:50 | Day surgery (SDC) | payer MEDICARE, OTHER, SELFPAY ==
[2020-10-27 12:54] VITALS: BP 188/105; PULSE 78; RESP 18; TEMP 36.8; O2SAT 98; BMI 37.0
[2020-10-27 13:09] VITALS: BP 142/78; PULSE 77; RESP 18; O2SAT 99
[2020-10-27 13:10] VITALS: BP 140/74; PULSE 89; RESP 18; O2SAT 98
--- NOTE | 2020-10-27 13:14 | HMH.PMPROC ---
- Procedure Date: 10/27/20 Time: 13:14 Anesthesiologist:: Adama Shabazz MD Complications:: None Pre-procedure Diagnosis:: Low back pain with degenerative disc disease of lumbar spine and lumbar facet arthropathy with lumbar spondylosis Post-procedure Diagnosis:: Same Indications for Procedure:: This patient is a pleasant 80-year-old white female who we are treating for low back pain with lumbar spondylosis and lumbar facet arthropathy. She has increasing pain with extension and twisting. She is tender over the facet joints of L4-5 and L5-S1. We will do right-sided L4-5 and L5-S1 medial branch block/facet joint injections today to help with pain symptoms. Procedure Details:: Lumbar medial branch block Informed consent was obtained and the risks and benefits of the procedure was explained to the patient. The back was prepped using ChloraPrep. The skin and subcutaneous tissues were anesthetized using lidocaine. I placed 22-gauge spinal needles into the facet joint/medial branches of L4-L5 and L5-S1 on the right side. Needle placement was confirmed with dye. After this we injected 3 mL bupivacaine 0.25% and Depo-Medrol 20 mg into each facet joint/medial branch of L4-L5 and L5-S1 bilaterally. We used a total of 40 mg Depo-Medrol both levels on the right side. The patient tolerated the procedure well with no complications. Plan and Disposition:: We will follow-up with this patient in 2 weeks. Will reevaluate symptoms at that time.
[2020-10-27 13:17] VITALS: BP 176/98; PULSE 74; RESP 18; O2SAT 97
== END 2020-10-27 13:19 | disposition home or self-care (01) ==
LOC: SC.PAINP 12:51
PROVIDERS: PCP Internal Medicine; Visit Provider Anesthesiology
DX: M51.36 Other intervertebral disc degeneration, lumbar region (principal); M54.06 Panniculitis affecting regions of neck and back, lumbar region; M47.816 Spondylosis without myelopathy or radiculopathy, lumbar region; I10 Essential (primary) hypertension; I48.91 Unspecified atrial fibrillation; J45.909 Unspecified asthma, uncomplicated; K21.9 Gastro-esophageal reflux disease without esophagitis; R01.1 Cardiac murmur, unspecified; Z95.0 Presence of cardiac pacemaker; Z88.2 Allergy status to sulfonamides; Z88.1 Allergy status to other antibiotic agents; Z91.040 Latex allergy status
CPT/HCPCS: 64493; 64494; J1040; Q9966

== ENCOUNTER → 2020-11-23 09:38 | Outpatient (POV) | payer MEDICARE, OTHER, SELFPAY ==
--- NOTE | 2020-11-23 10:02 | P.CONS_ITS ---
[facility] Pain Management SOAP Note Subjective:: Patient is a pleasant 80-year-old white female who we are treating for low back pain with lumbar spondylosis and lumbar facet arthropathy. Patient has increased pain with extension and twisting. She is tender over her facet joints of L4-L5 L5-S1. Patient had a medial branch block with 80% relief for over 2 days. She is interested in moving forward with the radiofrequency ablation. She is on anticoagulation therapy however she does have permission to come off prior to injective therapy. Patient rates her pain an 8 out of 10 ROS General: no recent weight change, no fever, no sleep disturbances Respiratory: no cough, no shortness of air, no recurring pulmonary infections Cardiovascular/Peripheral Vascular: No chest pain, No palpitations, no edema, no shortness of breath. Gastrointestinal: no new onset incontinence, normal bowel movements reported Genitourinary: no new onset incontinence Musculoskeletal: Back pain Psychiatric: normal mood/ affect Neurological: [denies new onset weakness in extremities], [denies new onset balance issues] Objective:: Physical Exam General: Alert and oriented x3, no acute distress, pleasant and cooperative, [on room air] Lungs: Resps E/U, Symmetrical chest expansion, Eyes: PERRL Musculoskeletal: Flexion and extension of lumbar spine somewhat guarded secondary to pain, deep tendon reflexes normal, strength in upper and lower extremities [5/5], [abnormal gait noted] Neurological: speech clear, prisoner classification interviewer equal, no gross sensory deficits Assessment:: Degenerative disc disease lumbar spine lumbar facet arthropathy with lumbar spondylosis Plan:: We will schedule bilateral RFA of L4-L5 L5-S1 given the efficacy of her medial branch blocks I do believe this would benefit her. Patient's on anticoagulation therapy however she has permission to come off prior to injective therapy. We discussed realistic expectations in regards to the therapy. We will move forward. If she has any questions prior to her next appointment she has been instructed to call the office. Dr. Shabazz has reviewed this note and agrees with this plan of care. This note was dictated using voice recognition software and may contain errors or omissions [facility] History I have reviewed the patient's past medical history: Yes Medical History: Reports:: Anxiety, Asthma, Atrial Fibrillation, Cardiomyopathy, Gastroesophageal Reflux Disease(GERD), Heart Murmur, Hyperlipidemia, Hypertension, Internal Pacemaker, Lung Disease, 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, Valvular Heart Disease Denies:: Cancer, Diabetes Mellitus Type 1, Diabetes Mellitus Type 2, MRSA, Seizures *Have you ever received a pneumonia vaccine?: No *Have you received a flu vaccine this season?: No Other Medical History: Reports: Arthritis. Denies: Blood Transfusion Reaction Other Surgeries: Yes: Appendectomy, Cardiac Catheterization, Cholecystectomy, Colonoscopy, Hysterectomy-Total, Pacemaker, Sinus Surgery, Other Amputation: No Fractures: No - *Social History Smoking Status: Never smoker Alcohol Intake: never Substance Use Type: denies use *Occupational Status:: retired Housing: house Household Members: spouse *Travel in the last 8 weeks: None - Psychiatric History Pschychiatric History:: Reports:: Anxiety Family Hx:: No significant family history
[2020-11-23 10:15] VITALS: BP 132/74; PULSE 75; RESP 18; TEMP 37; O2SAT 99; BMI 37.3
== END ==
PROVIDERS: PCP Internal Medicine; Visit Provider Clinical Nurse Specialist Family Health
DX: M51.36 Other intervertebral disc degeneration, lumbar region (principal); M54.06 Panniculitis affecting regions of neck and back, lumbar region; M47.816 Spondylosis without myelopathy or radiculopathy, lumbar region
CPT/HCPCS: 99212; G0463

== ENCOUNTER 2020-12-15 11:18 | Day surgery (SDC) | payer MEDICARE, OTHER, SELFPAY ==
[2020-12-15 11:34] VITALS: BP 153/96; PULSE 97; RESP 18; TEMP 37; O2SAT 97; BMI 37.3
--- NOTE | 2020-12-15 12:00 | HMH.PMPROC ---
- Procedure Date: 12/15/20 Time: 12:01 Anesthesiologist:: Adama Shabazz MD Complications:: None Pre-procedure Diagnosis:: Degenerative disc disease of lumbar spine with lumbar spondylosis and lumbar facet arthropathy Post-procedure Diagnosis:: Same Indications for Procedure:: This patient is a pleasant 80-year-old white female who we are treating for low back pain with lumbar spondylosis and lumbar facet arthropathy. She has done well with previous medial branch blocks with 80 to 90% relief in her pain symptoms over 2 days. She presents for RF ablation to bilateral L4-5 and L5-S1 facet joint/medial branches today. Procedure Details:: Lumbar RFA informed consent was obtained and the risk and benefits of the procedure was explained to the patient. Patient was placed prone on the procedure table. The patient was prepped and draped in sterile fashion. C-arm fluoroscopy was used to view the lumbar spine. The skin and subcutaneous tissues were anesthetized using lidocaine. I placed 20-gauge RF needles into the facet joints of L4-5 and L5-S1 levels bilaterally. We underwent sensory stimulation. There is good sensory stimulation at 0.8 V. We underwent motor stimulation. There is no motor stimulation at 2 V. We then anesthetized these levels with lidocaine and Depo-Medrol. I used a total of 80 mg Depo-Medrol for both levels on both sides. I then burned both levels of L4-L5 and L5-S1 facet joint/medial branches on both sides, each one for 4 minutes at 80 ?C. Patient tolerated the procedure well with no complication. Plan and Disposition:: We will follow-up with her in 2 weeks. Will reevaluate symptoms at that time.
[2020-12-15 12:11] VITALS: BP 133/79; PULSE 85; RESP 18
[2020-12-15 12:12] VITALS: BP 138/89; PULSE 88; RESP 18; O2SAT 98
[2020-12-15 12:30] VITALS: BP 135/99; PULSE 82; RESP 20; O2SAT 94
== END 2020-12-15 12:30 | disposition home or self-care (01) ==
PROVIDERS: PCP Internal Medicine; Visit Provider Anesthesiology
DX: M51.36 Other intervertebral disc degeneration, lumbar region (principal); M47.816 Spondylosis without myelopathy or radiculopathy, lumbar region; M54.06 Panniculitis affecting regions of neck and back, lumbar region; I48.91 Unspecified atrial fibrillation; I25.10 Atherosclerotic heart disease of native coronary artery without angina pectoris; E78.5 Hyperlipidemia, unspecified; I10 Essential (primary) hypertension; Z95.0 Presence of cardiac pacemaker; J45.909 Unspecified asthma, uncomplicated; F41.9 Anxiety disorder, unspecified
CPT/HCPCS: 64635; 64636; J1030

== ENCOUNTER → 2021-01-18 14:02 | Outpatient (POV) | payer MEDICARE, OTHER, SELFPAY ==
[2021-01-18 14:41] VITALS: BP 151/80; PULSE 88; RESP 18; O2SAT 96; BMI 37.0
--- NOTE | 2021-01-18 16:36 | HMH.PAINSOAP ---
[facility] Pain Management SOAP Note Subjective:: Patient is a 80-year-old white female who presents today for follow-up after an RFA of lumbar spine. She is being treated for degenerative disc disease lumbar spine with lumbar spondylosis and lumbar facet arthropathy. Patient says that she only got 1 day of relief following the RFA. She says bending forward causes her to have severe pain. She rates her pain a 3 out of 10 with sitting, however, her pain is a 10 out of 10 with any bending forward or extension at her waist. Patient says that she has not gotten any significant relief with injective therapy. She has tried and failed conservative therapy of physical therapy for greater than 6 weeks and continues with home stretching. She is unable to take anti-inflammatories due to anticoagulation therapy. She also has a pacemaker defibrillator. She is inquiring about medications that she can take for her pain. Patient I discussed interventional therapies today. After her failed attempts at conservative therapies which include physical therapy, home stretching, and oral medications, we discussed possible spinal cord stimulation. Patient is interested in this treatment option. She has tried and failed medial branch block/facet joint injections as well with no relief. Review of Systems General: No recent weight changes, no fever, no sleep disturbances Respiratory: No cough, no shortness of air, no recurring pulmonary infections Cardiovascular/peripheral vascular: No chest pain, no palpitations, no edema, no shortness of breath Gastrointestinal: No new onset incontinence, normal bowel movements reported Genitourinary: No new onset incontinence Musculoskeletal: Low back pain worse with leaning forward Psychiatric: Normal mood/affect Neurological: [Denies weakness in extremities], [denies balance issues] Objective:: Physical exam General: Alert and oriented x3, no acute distress, pleasant and cooperative, [on room air] Lungs: Respirations even and unlabored, symmetrical chest expansion Eyes: PERRL Musculoskeletal: Flexion and extension of lumbar spine somewhat guarded secondary to pain, deep tendon reflexes normal, strength in upper and lower extremities [5/5], [abnormal gait noted] Neurological: Speech clear, upper leather 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 We did discuss this in detail today. She is given educational information. She has tried and failed conservative therapies of physical therapy for more than 6 weeks, home stretching, and oral medications. She is unable to take anti-inflammatories due to anticoagulation therapy. We will send her for psychological evaluation to see if she is a candidate for SCS therapy. We will see her back afterwards to reevaluate her symptoms and discuss a further plan of care. I will order her a low-dose of tizanidine 2 mg 1 tablet p.o. twice daily. Risks and benefits of the medication have been explained in detail to the patient. The patient has been advised to consult with his/her primary care provider and pharmacist regarding drug-drug interaction of medications currently prescribed. Patient has been instructed to contact the clinic with any concerns before the next appointment. Dr. Shabazz has reviewed this note and agrees with this plan of care. This note was dictated using voice recognition software and make contain errors or omissions. [facility] History I have reviewed the patient's past medical history: Yes Medical History: Reports:: Anxiety, Arrhythmia, Asthma, Atrial Fibrillation, Cardiomyopathy, Coronary Artery Disease, Gastroesophageal Reflux Disease(GERD), Heart Murmur, Hyperlipidemia, Hypertension, Internal Pacemaker, Lung Disease, Palpita
== END ==
PROVIDERS: PCP Internal Medicine; Visit Provider Clinical Nurse Specialist Family Health
DX: M51.36 Other intervertebral disc degeneration, lumbar region (principal); M47.816 Spondylosis without myelopathy or radiculopathy, lumbar region; M54.06 Panniculitis affecting regions of neck and back, lumbar region
CPT/HCPCS: 99212; G0463

== ENCOUNTER → 2021-02-14 14:42 | Outpatient (CLI) | payer MEDICARE, OTHER, SELFPAY ==
--- NOTE | 2021-02-14 14:48 | XR_ITS ---
PROCEDURE: XR CHEST 2V CLINICAL HISTORY: BRONCHITIS,HEMOPTYSIS COMPARISON: CT CHESTWO CT chest wo con from 03/03/2018 CR CXR1VP XR chest portable from 10/20/2018 CR XR CHEST PORTABLE from 02/02/2020 CR XR CHEST 2V from 05/26/2020 FINDINGS: Normal heart size. There are biventricular and right atrial pacemaker leads present from left subclavian approach. There is an azygos fissure as a normal variant. Lungs are clear. No acute bony findings. IMPRESSION: No change with Dictated by: Jacky Floyd MD 02/14/2021 17:13 Jacky Floyd MD in [facility] 02/14/2021 17:13
== END ==
PROVIDERS: PCP Internal Medicine; Visit Provider Internal Medicine
DX: J40 Bronchitis, not specified as acute or chronic (principal); R04.2 Hemoptysis
CPT/HCPCS: 71046

== ENCOUNTER 2021-03-02 13:35 | Emergency (ER) | payer MEDICARE, OTHER, SELFPAY ==
[2021-03-02 13:37] VITALS: BP 175/93; PULSE 68; RESP 18; TEMP 36.9; O2SAT 96; BMI 37.0
--- NOTE | 2021-03-02 13:58 | CT_ITS ---
PROCEDURE: CT FACIAL BONES WO CON CLINICAL HISTORY: trauma COMPARISON: No exams were available for comparison TECHNIQUE: Axial images obtained with sagittal and coronal reformats. All CT scans at the facility use one or more dose reduction, viz: automated exposure control, ma/kV adjustment per patient size (including targeted exams where dose is matched to indication, i.e. head), or iterative reconstruction technique. FINDINGS: Bones: Unremarkable. No fracture, lytic, or blastic changes evident. Extracranial soft tissues: Preseptal soft tissue hematoma projecting over the right eye is noted, extending into the right supraorbital Sinuses: Region. Mucosal thickening of the ethmoidal sinuses noted. Orbits: The intraconal soft tissues are unremarkable. Bilateral lens replacements are noted. Otherwise the globes, intra and extra: Structures are within normal limits. Other: No other pertinent findings. IMPRESSION: No acute fractures or dislocations. Right preseptal soft tissue hematoma extending into the right supraorbital region. Dictated by: Andreina Faustin 03/02/2021 15:14 Andreina Faustin in [facility] 03/02/2021 15:14
--- NOTE | 2021-03-02 13:58 | CT_ITS ---
PROCEDURE: CT HEAD/BRAIN WO CON CLINICAL INDICATION: trauma COMPARISON: No exams were available for comparison TECHNIQUE: Unenhanced CT head with axial images obtained. Dose modulation, automated exposure control, and/or iterative reconstruction were used for dose reduction FINDINGS: There is no space-occupying mass, acute intra or extra-axial hemorrhage or acute infarct. No midline shift or mass effect. Ventricles: Ex vacuo dilatation of the ventricles is present. The arambula-white differentiation is well preserved throughout, with no evidence of acute infarct. Volume: There is generalized parenchymal volume loss. Periventricular and deep white matter lucencies likely indicate chronic micovascular ischemic disease. Atherosclerotic calcification are present bilaterally. Osseous Osseous structures are unremarkable. Sinuses: The paranasal sinuses are clear Mastoids: Mastoid air cells are clear. There is large right preseptal soft tissue hematoma extending into the right supraorbital region. IMPRESSION: 1. No evidence of acute intracranial process. 2. Generalized volume loss, chronic microvascular ischemic changes, and atherosclerotic disease. 3. Right preseptal soft tissue hematoma extending into the right supraorbital region. Dictated by: Andreina Faustin 03/02/2021 15:05 Andreina Faustin in [facility] 03/02/2021 15:05
--- NOTE | 2021-03-02 13:58 | CT_ITS ---
PROCEDURE: CT CERVICAL SPINE WO CON CLINICAL INDICATION: trauma COMPARISON: No exams were available for comparison TECHNIQUE: Multiplanar CT of the cervical spine, performed without intravenous contrast. Dose modulation, automated exposure control, and/or iterative reconstruction were used for dose reduction. FINDINGS: Vertebral Alignment: Vertebral body heights and alignment are maintained. No acute fractures or traumatic subluxation. Disc:Multilevel degenerative disc disease is noted. Multilevel facet joint arthropathy is noted. Soft Tissue: Prevertebral soft tissues are unremarkable. Lungs/mediastinum: Visualized lung apices are unremarkable. Incidental note is made of azygos fissure. Vascular calcification is noted. Pacemaker leads are partially visualized. Thyroid: Unremarkable Vascular: Atherosclerotic vascular calcification is noted. IMPRESSION: No acute fractures or traumatic subluxation. Dictated by: Andreina Faustin 03/02/2021 15:10 Andreina Faustin in [facility] 03/02/2021 15:10
--- NOTE | 2021-03-02 14:21 | HMH.EDFALL ---
ED Disposition Clinical Impression: Accidental fall Qualifiers: Encounter type: initial encounter Qualified Code(s): W19.XXXA - Unspecified fall, initial encounter Closed head injury Qualifiers: Encounter type: initial encounter Qualified Code(s): S09.90XA - Unspecified injury of head, initial encounter Traumatic hematoma of forehead Qualifiers: Encounter type: initial encounter Qualified Code(s): S00.83XA - Contusion of other part of head, initial encounter Disposition: Home, Self-Care Condition on Discharge: Good Instructions: How to Prevent Falls Prescriptions: Hydrocod/Acet 5/325 mg [[place] 5/325mg tablet] 1 tab PO Q6HP PRN #10 tab PRN Reason: Moderate Pain Transmission Status: Sent to [facility] Ondansetron [Zofran 4mg ODT] 4 mg PO BIDP PRN #10 tab PRN Reason: Nausea And Vomiting Transmission Status: Pending to [facility] Referrals: Alfred Cantu [Primary Care Provider] - - Critical Care Critical Care Time: No Attestation: On 03/02/21, the high probability of a clinically significant, sudden or life threatening deterioration of the following system(s) required my full and direct attention, intervention and personal management. The time I documented below is in addition to time spent performing reported procedures but includes the following listed in this critical care notation. Medical Decision Making - Medical Records Medical records reviewed: Yes: I reviewed the patient's medical records. - Saad Inquiry Pt receiving controlled substance: Yes Saad was queried for this patient: No Reason not queried -: Saad login issues Risks and benefits of using a controlled substance: were discussed with pt by me Vital Signs: 03/02/21 13:37 Temperature 98.4 F Temperature Source Oral Pulse Rate [Right Radial] 68 Respiratory Rate 18 Blood Pressure [Right Arm] 175/93 H Blood Pressure Mean [Right Arm] 120 Blood Pressure Source [Right Arm] Automatic Cuff Blood Pressure Position [Right Arm] Sitting 02 Sat by Pulse Oximetry 96 Oxygen Delivery Method Room Air Orders (Tests/Meds): ED MEDICATIONS Discontinued Medications Generic Name Dose Route Start Last Admin Trade Name Freq PRN Reason Stop Dose Admin Hydrocodone Bitart/Acetaminophen 1 tab 03/02/21 13:58 03/02/21 14:04 Apap/Hydrocodone 325mg/7.5mg Tab PO 03/02/21 13:59 1 tab ONCE ONE Administration Ondansetron HCl 4 mg 03/02/21 15:04 03/02/21 15:07 Ondansetron 4mg/2ml Vial IV 03/02/21 15:05 4 mg ONCE ONE Administration - CT Data CT Scan: Head, C-Spine, Other (face) Time Received: 15:[address] Reviewed: Yes: I have reviewed the patient's CT results, I have viewed the radiologist's interpretation Findings Narrative: IMPRESSION: 1. No evidence of acute intracranial process. 2. Generalized volume loss, chronic microvascular ischemic changes, and atherosclerotic disease. 3. Right preseptal soft tissue hematoma extending into the right supraorbital region. IMPRESSION: No acute fractures or dislocations. Right preseptal soft tissue hematoma extending into the right supraorbital region. IMPRESSION: No acute fractures or traumatic subluxation. - Reevaluation(s) Time: 15:53 Reevaluation #1: On reevaluation, patient is feeling much better. There is no evidence of intracranial bleeding or fracture. Patient does have a hematoma on the forehead as well as preseptal region. Likely extending secondary to the patient's novel anticoagulation use. I did instruct the patient to hold 2 of her anticoagulation doses in order to achieve hemostasis. There is no evidence of critical bleeding or hemodynamic compromise. Patient does need repeat examination in 48 hours. Given strict return precautions. Verbalized understanding. Medical Decision Narrative: 80-year-old female presented to the emergency department after an accidental fall. Patient has a large hematoma in the head.
--- NOTE | 2021-03-02 14:25 | XR_ITS ---
PROCEDURE: XR ELBOW RT 2V CLINICAL INDICATION: trauma COMPARISON: No exams were available for comparison FINDINGS: No acute fractures or dislocations. Bone density is normal. Focal ossific density is noted projected at the extensor tendon attachment at the lateral epicondyle. Old injury suspected.. Minor degenerative changes are noted. No evidence of anterior or posterior fat pad elevation. Soft tissues are otherwise unremarkable. IMPRESSION: No acute fractures. Focal ossification noted at the lateral epicondyle, likely sequela of prior injury. Dictated by: Andreina Faustin 03/02/2021 15:16 Andreina Faustin in [facility] 03/02/2021 15:16
[2021-03-02 16:42] VITALS: BP 166/90; PULSE 65; RESP 18; TEMP 36.9; O2SAT 95
== END 2021-03-02 16:44 | disposition home or self-care (01) ==
PROVIDERS: Emergency Provider Emergency Medicine; PCP Internal Medicine
DX: S00.83XA Contusion of other part of head, initial encounter (principal); W01.0XXA Fall on same level from slipping, tripping and stumbling without subsequent striking against object, initial encounter; Y92.019 Unspecified place in single-family (private) house as the place of occurrence of the external cause; I48.0 Paroxysmal atrial fibrillation; K21.9 Gastro-esophageal reflux disease without esophagitis; E78.5 Hyperlipidemia, unspecified; I10 Essential (primary) hypertension; Z79.899 Other long term (current) drug therapy
CPT/HCPCS: 70450; 70486; 72125; 73070; 96374; 96375; 99282; J2405

== ENCOUNTER 2021-03-06 07:12 | Inpatient (IN) | payer MEDICARE, OTHER, SELFPAY ==
[2021-03-06] VITALS (10 sets, daily range): BP systolic 98–147; BP diastolic 49–79; PULSE 61–72; RESP 16–20; TEMP 36.5–37.2; O2SAT 92–98; BMI 37.4; BMI 31.1
--- NOTE | 2021-03-06 06:59 | ECG_ITS ---
APPROVED REPORT Exam: Resting ECG HR:74 bpm ECG Measurements Heart Rate 74 AXES AZ 242 P 86 QRSd 102 QRS 256 QT 524 T -42 QTc 581 Conclusion AV sequential or dual chamber electronic pacemaker Electronically signed by : Power Jo, 03/06/2021 16:59:17
--- NOTE | 2021-03-06 07:19 | CT_ITS ---
Procedure: CT ANGIO NECK CT ANGIO HEAD CLINICAL HISTORY: Fall/Dizziness COMPARISON: CT CT ANGIO HEAD from 03/06/2021 TECHNIQUE: IV Contrast: 100ml Isovue 370 Axial images obtained with sagittal and coronal reformats. All CT scans at the facility use one or more dose reduction, viz: automated exposure control, ma/kV adjustment per patient size (including targeted exams where dose is matched to indication, i.e. head), or iterative reconstruction technique. FINDINGS: CTA neck: The aortic arch and great vessels have an unremarkable appearance. Mild degree of motion artifact obscures fine detail. The proximal right common carotid is somewhat obscured by streak artifact from contrast within the right subclavian vein. There is moderate tortuosity of the right common carotid. Minimal amount of plaque is present distally at the bifurcation. No significant stenosis, dissection, or aneurysm. The left common carotid and internal carotid have an unremarkable appearance. Vertebrals are unremarkable. CTA brain: Scattered calcific plaque involves the cavernous portion of the ICAs on both sides. There is persistent origin of the posterior cerebral artery bilaterally. There is some mild fusiform dilatation of the cavernous portion of the left internal carotid with carotid measuring up to 6 mm in diameter. The posterior cerebral, anterior cerebral, middle cerebral arteries are unremarkable without evidence of aneurysm or major occlusive change. No AVM. No enhancing lesions. Large right frontal supraorbital hematoma once again noted. IMPRESSION: 1. Negative CTA of the neck 2. No aneurysm, AVM, or major intracranial occlusive process apparent. There is mild fusiform dilatation of the left internal carotid at the cavernous portion with mild calcific plaque of the carotids at the cavernous portion bilaterally. Dictated by: Jacky Floyd MD 03/06/2021 09:42 Jacky Floyd MD in [facility] 03/06/2021 09:42
--- NOTE | 2021-03-06 07:29 | XR_ITS ---
PROCEDURE: XR KNEE LT 3V CLINICAL INDICATION: Injury from fall on 03/02/21 Posttraumatic pain COMPARISON: CR KNEE3L KNEE-3 VIEWS-LT from 06/30/2017 CR XR KNEE RT 3V from 06/26/2019 CR XR KNEE RT 4V from 08/30/2019 CR XR KNEE LT 3V from 08/07/2020 FINDINGS: No fracture or dislocation. No lytic or blastic change. There is normal mineralization. Mild osteoarthritic changes are present at the medial compartment and patellofemoral joint. There is some soft tissue swelling in the suprapatellar and prepatellar region. Other findings:None. IMPRESSION: No acute fracture Dictated by: Jacky Floyd MD 03/06/2021 09:49 Jacky Floyd MD in [facility] 03/06/2021 09:49
[2021-03-06 07:34] LABS: Basophils % 0.2 % (0.1-2.0); Eosinophils # 0.1 K/mm3 (0.0-0.4); Eosinophils % 0.7 % (0.1-12.0); Hematocrit 35.8 % (37.0-47.0); Hemoglobin 12.2 g/dL (12.2-16.2); Lymphocytes # 1.6 K/mm3 (0.7-4.5); Lymphocytes % 10.1 % (10-50); Mean Corpuscular HGB Conc 34.2 g/dL (31.8-35.4); Mean Corpuscular Hemoglobin 26.9 pg (27.0-31.2); Mean Corpuscular Volume 78.9 fl (81-99); Mean Platelet Volume 7.9 fl (7.4-10.4); Monocytes # 1.1 K/mm3 (0.1-1.0); Monocytes % 6.4 % (1.7-9.3); Neutrophils # 13.4 K/mm3 (1.8-7.8); Neutrophils % 82.6 % (37.0-80.0); Platelet Count 249 K/mm3 (142-424); Red Blood Count 4.54 M/mm3 (4.20-5.40); Red Cell Distribution Width 14.4 % (11.5-17.5); White Blood Count 16.2 K/mm3 (4.8-10.8)
[2021-03-06 07:36] LABS: MANUAL DIFFERENTIAL MANUAL DIFFERENTIAL (MANUAL DIFF)
[2021-03-06 07:38] LABS: Alanine Aminotransferase 28 U/L (12-78); Albumin Level 3.8 g/dl (3.5-5.0); Albumin/Globulin Ratio 1.4 (1.1-1.8); Alkaline Phosphatase 95 U/L (38-126); Aspartate Amino Transferase 35 U/L (14-36); Bilirubin,Total 1.2 mg/dl (0.2-1.3); Blood Urea Nitrogen 11 mg/dl (7-17); Calcium 8.4 mg/dl (8.4-10.2); Carbon Dioxide 36 mmol/L (22.0-30.0); Creatinine Clearance Estimated 66 mL/min (50-200); Estimated Glomerular Filt Rate 81 ml/min (>60); GFR (African American) 98 ML/MIN (>60); Globulin 2.8 g/dL (1.3-3.2); Glucose 120 mg/dl (74-100); Sodium 116 mmol/L (136-145); Total Protein,Serum 6.6 g/dl (6.3-8.2)
[2021-03-06 07:41] LABS: Chloride 71 mmol/L (98-107)
[2021-03-06 07:43] LABS: C-Reactive Protein 52.9 mg/L (0-4)
[2021-03-06 07:50] LABS: Microscopic, Urine URINE MICROSCOPIC (MICROSCOPIC)
[2021-03-06 07:52] LABS: Troponin I < 0.01 ng/ml (0.00-0.034)
[2021-03-06 07:52] LABS: Appearance,Urine CLEAR (Clear); Bilirubin,Urine Negative (Negative); Blood, Urine Negative (Negative); Color,Urine YELLOW (Yellow); Glucose,Urine (UA) Negative (Negative); Ketones,Urine Negative (Negative); Leukocyte Esterase,Urine Negative (Negative); Nitrate,Urine Negative (Negative); Protein,Urine 2+ (Negative); Specific Gravity, Urine 1.015 (1.005-1.030)
--- NOTE | 2021-03-06 07:57 | PC.NURSE ---
Dr. Pope aware of critical labs
[2021-03-06 07:59] LABS: Magnesium 1.2 mg/dl (1.6-2.3)
[2021-03-06 08:00] LABS: Lymphocytes % 12 % (10-50); Monocytes % 7 % (2-9); Neutrophils % 81 % (42-76); Total Cells Counted 100
[2021-03-06 08:01] LABS: Platelet Estimate Normal; RBC Morphology Normal
[2021-03-06 08:02] LABS: RBC,Urine Occasional #/hpf (0-3); WBC,Urine Occasional #/hpf (0-3)
--- NOTE | 2021-03-06 08:02 | XR_ITS ---
PROCEDURE: XR CHEST PORTABLE CLINICAL HISTORY: evaluation for pneumonia Cough COMPARISON: CT CHESTWO CT chest wo con from 03/03/2018 CR XR CHEST PORTABLE from 02/02/2020 CR XR CHEST 2V from 05/26/2020 CR XR CHEST 2V from 02/14/2021 FINDINGS: The cardiomediastinal silhouette and pulmonary vascularity are within normal limits. Biventricular and right atrial pacemaker leads are present. These are from left subclavian approach. There is an azygos fissure. No lobar consolidation or collapse is evident. No acute bony abnormalities. IMPRESSION: No acute findings. Dictated by: Jacky Floyd MD 03/06/2021 09:47 Jacky Floyd MD in [facility] 03/06/2021 09:47
[2021-03-06 08:10] LABS: NT Pro Brain Natriuretic Pep. 686 pg/mL (0-450)
[2021-03-06 08:14] LABS: Creatine Kinase 129 U/L (30-135)
[2021-03-06 08:17] LABS: Procalcitonin 0.226 ng/mL (0.0-2.0)
--- NOTE | 2021-03-06 08:25 | PC.NURSE ---
PT TO RADIOLOGY
--- NOTE | 2021-03-06 08:30 | HMH.EDGENADL ---
ED Disposition Clinical Impression: Hypokalemia, Hyponatremia, Hypomagnesemia Head trauma Qualifiers: Encounter type: subsequent encounter Qualified Code(s): S09.90XD - Unspecified injury of head, subsequent encounter Knee contusion Qualifiers: Encounter type: subsequent encounter Laterality: left Qualified Code(s): S80.02XD - Contusion of left knee, subsequent encounter Disposition: Still a Patient Condition on Discharge: Good - Critical Care Critical Care Time: No Attestation: On 03/06/21, the high probability of a clinically significant, sudden or life threatening deterioration of the following system(s) required my full and direct attention, intervention and personal management. The time I documented below is in addition to time spent performing reported procedures but includes the following listed in this critical care notation. Medical Decision Making - Medical Records Medical records reviewed: Yes: I reviewed the patient's medical records. - Saad Inquiry Pt receiving controlled substance: No Vital Signs: 03/06/21 06:58 03/06/21 07:38 03/06/21 09:11 Temperature 98.3 F Temperature Source Oral Pulse Rate 62 Pulse Rate [Orthostatic Lying] 63 Pulse Rate [Orthostatic Sitting] 64 Pulse Rate [Orthostatic Standing] 62 Pulse Rate [Right] 72 Respiratory Rate 18 16 Blood Pressure 134/67 Blood Pressure [Orthostatic Lying] 137/68 Blood Pressure [Orthostatic Sitting] 121/61 Blood Pressure [Orthostatic Standing] 110/61 Blood Pressure [Right Arm] 143/79 H Blood Pressure Mean [Right Arm] 100 Blood Pressure Source Blood Pressure Position 02 Sat by Pulse Oximetry 98 95 Oxygen Delivery Method Room Air 03/06/21 10:41 Temperature Temperature Source Pulse Rate 63 Pulse Rate [Orthostatic Lying] Pulse Rate [Orthostatic Sitting] Pulse Rate [Orthostatic Standing] Pulse Rate [Right] Respiratory Rate 18 Blood Pressure 135/59 L Blood Pressure [Orthostatic Lying] Blood Pressure [Orthostatic Sitting] Blood Pressure [Orthostatic Standing] Blood Pressure [Right Arm] Blood Pressure Mean [Right Arm] Blood Pressure Source Automatic Cuff Blood Pressure Position Supine 02 Sat by Pulse Oximetry 95 Oxygen Delivery Method Room Air - Lab Data Lab Results 03/06/21 07:05: WBC 16.2 H, RBC 4.54, Hgb 12.2, Hct 35.8 L, MCV 78.9 L, MCH 26.9 L, MCHC 34.2, RDW 14.4, Plt Count 249, MPV 7.9, Neut % (Auto) 82.6 H, Lymph % (Auto) 10.1, [place] % (Auto) 6.4, Eos % (Auto) 0.7, Baso % (Auto) 0.2, Neut # (Auto) 13.4 H, Lymph # (Auto) 1.6, [place] # (Auto) 1.1 H, Eos # (Auto) 0.1, Baso # (Auto) 0.0, Total Counted 100, Neutrophils % (Manual) 81 H, Lymphocytes % (Manual) 12, Monocytes % (Manual) 7, Platelet Estimate Normal, RBC Morphology Normal 03/06/21 07:05: Sodium 116 L, Potassium 2.0 L*, Chloride 71 L, Carbon Dioxide 36 H, Anion Gap 11.0, BUN 11, Creatinine 0.70, Estimated Creat Clear 66, Estimated GFR 81, Est GFR ( Amer) 98, Glucose 120 H, Calcium 8.4, Total Bilirubin 1.2, AST 35, ALT 28, Alkaline Phosphatase 95, Troponin I < 0.01, C-Reactive Protein 52.9 H, Total Protein 6.6, Albumin 3.8, Globulin 2.8, Albumin/Globulin Ratio 1.4 03/06/21 07:05: Procalcitonin 0.226 03/06/21 07:05: NT-Pro-B Natriuret Pep 686 H 03/06/21 07:05: Magnesium 1.2 L 03/06/21 07:05: Total Creatine Kinase 129 03/06/21 07:35: Urine Color Yellow, Urine Appearance Clear, Urine pH 8.0, Ur Specific [place] 1.015, Urine Protein 2+, Urine Glucose (UA) Negative, Urine Ketones Negative, Urine Blood Negative, Urine Nitrate Negative, Urine Bilirubin Negative, Urine Urobilinogen 1.0, Ur Leukocyte Esterase Negative, Urine RBC Occasional, Urine WBC Occasional, Ur Squamous Epith Cells 3-5, Urine Bacteria None 03/06/21 08:03: VBG pH 7.47 H, VBG pCO2 42.6, VBG pO2 37.7, VBG HCO3 30.2 H, VBG Total CO2 31.5 H, VBG O2 Saturation 73.1 H, VBG Base Excess 6.6 H 03/06/21 08:17: SARS-CoV-2 (PCR) Not detected, Influenza A Untype (PCR) Not detected, Influe
[2021-03-06 08:35] LABS: VBG Base Excess 6.6 mmol/L (-2.4-2.3); VBG HCO3 30.2 mmol/L (23-30); VBG Oxygen Saturation 73.1 % (50-70); VBG PCO2 42.6 mmol/L (35-51); VBG PH 7.47 mmol/L (7.31-7.41); VBG PO2 37.7 mmol/L (28-40); VBG Total CO2 31.5 mmol/L (23-27)
--- NOTE | 2021-03-06 08:38 | CT_ITS ---
PROCEDURE: CT HEAD/BRAIN WO CON CLINICAL INDICATION: Fall with headache. Continued headache following injury. Patient anticoagulated. COMPARISON: CT CT HEAD/BRAIN WO CON from 03/02/2021 TECHNIQUE: Axial images obtained. All CT scans at the facility use one or more dose reduction, viz: automated exposure control, ma/kV adjustment per patient size (including targeted exams where dose is matched to indication, i.e. head), or iterative reconstruction technique. FINDINGS: No midline shift, mass effect, intracranial hemorrhage, or hydrocephalus is evident. There is mild generalized atrophy with nonspecific periventricular hypodensity consistent with ischemic gliotic change from microvascular disease. There is a large right frontal scalp hematoma in the supraorbital region with extension inferiorly to the preseptal area. No underlying calvarial fracture. Moderate mucosal thickening involves the ethmoid sinuses with a small air-fluid level in the right aspect of the sphenoid sinus. No mastoid effusion. IMPRESSION: 1. No acute intracranial hemorrhage. 2. Large right frontal scalp/supraorbital and preseptal hematoma. Previously the there was a fat fluid level within the hematoma. The hematoma now is all hyperdense which could indicate a re bleed. The overall size is not significantly changed. Dictated by: Jacky Floyd MD 03/06/2021 09:30 Jacky Floyd MD in [place] 03/06/2021 09:30
[2021-03-06 08:50] LABS: Coronavirus 19, PCR Not Detected (NotDetected); Influenza A, PCR Not Detected (NotDetected); Influenza B, PCR Not Detected (NotDetected)
--- NOTE | 2021-03-06 10:23 | PC.NURSE ---
Dr Maddy parker
--- NOTE | 2021-03-06 10:43 | PC.NURSE ---
Dr Pope on with Dr Castañeda
--- NOTE | 2021-03-06 11:00 | PC.NURSE ---
bed assignment requested, room 263. all staff notified
--- NOTE | 2021-03-06 11:18 | PC.NURSE ---
REPORT CALLED TO FLOOR
--- NOTE | 2021-03-06 12:12 | PC.NURSE ---
REPORT CALLED TO FLOOR
--- NOTE | 2021-03-06 12:23 | PC.NURSE ---
Report received from Angel Luis Box RN at [id number]
--- NOTE | 2021-03-06 13:51 | HMH.HP ---
*Admission Date: 03/06/21 *Chief complaint: syncope, dizzy *History of present illness: 80-year-old female with history of biventricular AICD, cardiomyopathy, CHF (last echo in our system 2019 severely reduced EF of 30% and mitral valve regurgitation), and recent presentation to the ER last week with a fall causing hematoma on her face. She presents today due to persistent weakness and fatigue at home. States she has been having increasing dizziness and nausea. In the ER she was assessed for her fatigue, dizziness. Labs showing severe hypokalemia, hypomagnesemia, hyponatremia. Alert with minimal disorientation. EKG obtained showing paced rhythm. Medicine was contacted for admission and further management. Patient given 2 g magnesium, potassium chloride repletion ordered, status post 1 L normal saline. Repeat imaging of her head showed stable findings, no new intracranial bleeds; only pre-existing injuries. On assessment, she is pleasant, slow to recall but able to answer questions appropriately. Reports no nausea or vomiting. Does have some epigastric discomfort however. States she feels better after fluid resuscitation. Denies diarrhea, fever, chest pain. Prominent bruising noted on face. Reports following with cardiology in [place] (Dr. Key). [facility] History I have reviewed the patient's past medical history: Yes Medical History: Reports:: Anxiety, Arrhythmia, Asthma, Atrial Fibrillation, Cardiomyopathy, Coronary Artery Disease, Gastroesophageal Reflux Disease(GERD), Heart Murmur, Hyperlipidemia, Hypertension, Internal Pacemaker, Lung Disease, 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, Valvular Heart Disease (mitral regurg) Denies:: Cancer, Diabetes Mellitus Type 1, Diabetes Mellitus Type 2, MRSA, Seizures *Have you ever received a pneumonia vaccine?: Yes *Have you received a flu vaccine this season?: Yes Other Medical History: Reports: Arthritis. Denies: Blood Transfusion Reaction Other Surgeries: Yes: Appendectomy, Cardiac Catheterization, Cholecystectomy, Colonoscopy, Hysterectomy-Total, Pacemaker, Sinus Surgery, Other Amputation: No Fractures: No - *Social History Smoking Status: Never smoker Alcohol Intake: never Substance Use Type: denies use *Occupational Status:: retired Housing: house Household Members: spouse *Travel in the last 8 weeks: None - Psychiatric History Pschychiatric History:: Reports:: Anxiety Family Hx:: No significant family history Review of Systems - Review of Systems Review of systems:: pertinent systems reviewed and negative unless documented below (This times) Meds Home Medications Medication Instructions Recorded Confirmed Type carvedilol 25 mg tablet 25 mg PO BID 90 Days #360 tab 09/09/17 03/06/21 History Apixaban [Eliquis] 5 mg PO BID 04/19/19 03/06/21 History Aspirin [Aspirin 81mg EC Tab] 81 mg PO DAILY 08/26/19 03/06/21 History Fluticasone/Salmeterol [Advair 1 puffs IH BIDRT 08/26/19 03/06/21 History 250/50mcg Diskus] Potassium Chloride [Klor-con 20 40 meq PO BID 08/26/19 03/06/21 History mEq tablet] levalbuterol HCL [Xopenex 1.25 mg IH Q6H 08/26/19 03/06/21 History 1.25mg/3mL neb] Ondansetron [Zofran 4mg ODT] 4 mg PO BIDP PRN #10 tab 03/02/21 03/06/21 Rx Amiodarone HCl [Pacerone] 100 mg PO DAILY 03/06/21 03/06/21 History Irbesartan 150 mg PO DAILY 03/06/21 03/06/21 History Montelukast Sodium 10 mg PO DAILY 03/06/21 03/06/21 History Tizanidine HCl [Tizanidine HCl 2 mg PO BID 03/06/21 03/06/21 History 2mg] diazePAM [diazePAM 5mg Tablet] 5 mg PO NEEDED PRN 03/06/21 03/06/21 History metOLazone [metOLazone 2.5mg 2.5 mg PO DAILY 03/06/21 03/06/21 History Tablet] Allergies Allergy/AdvReac Type Severity Reaction Status Date / Time latex Allergy Intermediate I-RASH Verified 12/15/20 11:36 Sulfa (Sulfonamide Allergy Mild NA-NAUSEA Verified 12/15/20 11:36 Antibiotics) levofloxacin AdvReac Mild Blurry Verified 12/15/20 11:36 Vision Exam Vital signs an
--- NOTE | 2021-03-06 14:08 | CA_ITS ---
APPROVED REPORT EXAM: Comprehensive 2D, Doppler, and color-flow Echocardiogram Biometrics Technician: Neelima Reis CRT Ht: 5 ft 1 in Wt: 198lbs BSA: 1.88 BP: 94/49 mmHg Indications: Congestive Heart Failure, Atrial Fibrillation, CAD, Cardiomyopathy 2D Dimensions Aortic Root 2.02 cm LA Volume 35.30 mL LA Volume Index 18.80 mL/m2 (M/F) 16-34 M-Mode Dimensions RVDd 2.78 cm (0.9-2.6) LA Diam 3.66 cm (1.9-4.0) LVDd 4.18 cm (3.5-5.7) Ao Diam 3.49 cm (2.0-3.7) LVDs 2.86 cm (3.5-5.7) IVSd 1.35 cm (0.6-1.1) PWd 0.78 cm (0.6-1.1) EF (Teich) 60.00% FS 31.60% EDV (Teich) 77.70 mL TAPSE 2.62 (<1.7) ESV (Teich) 31.10 mL LV Diastology E Decel Time 297.00 (160-240 msec) E/A Ratio 0.92 MED E' 4.50 (< 7 cm/sec) MED A' 9.20 cm/s E'/MED E' Ratio 20.58 (>14) LAT E' 7.20 (<10 cm/sec) LAT A' 7.30 cm/s E/LAT E' Ratio 12.86 (>14) Aortic Valve LVOT Max 184.00 (70-110 cm/s) LVOT VTI 34.77 cm AoV Peak Morro. 207.00 (50-130 cm/s) AI PHT 576.00 ms AO Peak GR. 17.20 mmHg AO Mean GR. 8.10 (<5 mmHg) AO VTI 33.99 (18-25 cm) Mitral Valve MV A Velocity 100.00 (40-130 cm/s) E/A Ratio 0.92 MV Decel. Time 297.00 (160-240 ms) Pulmonary Valve PV Peak Velocity 77.00 (50-150 cm/s) Tricuspid Valve TR P. Velocity 320.00 cm/s RAP Estimate 10.00 mmHg RVSP 50.90 mmHg Left Ventricle Left atrium is mildly enlarged, left ventricle is normal size, mild concentric left ventricular hypertrophy, visually estimated ejection fraction 55% with no regional wall motion abnormality, diastolic parameters are inconclusive. Right Ventricle Right atrium and right ventricle mildly enlarged with normal contractility. Aortic Valve Aortic valve is minimally thickened and fibrosed, there is no aortic stenosis, there is mild aortic insufficiency. Mitral Valve Mitral valve is grossly normal, there is mild mitral regurgitation. Tricuspid Valve Tricuspid grossly normal, there is mild tricuspid regurgitation, tricuspid regurgitation jet velocity is inadequate for calculation of the right ventricular systolic pressure. Pulmonic Valve Pulmonic valve is poorly visualized. Great Vessels Aortic root is normal size. Inferior vena cava is not well visualized. Pericardium No significant pericardial effusion noted. Conclusion 1. Mild biatrial abdomen, normal left ventricular size, mild concentric left ventricular hypertrophy, visually estimated ejection fraction 55% with no regional wall motion abnormality, diastolic parameters are inconclusive. 2. Mildly enlarged right ventricle with normal contractility. 3. Mild mitral and tricuspid regurgitation. 4. Thickened and calcified aortic valve without aortic stenosis, there is mild aortic insufficiency. 5. No significant pericardial effusion noted. Electronically signed by : Arjun Gurrola, 03/06/2021 19:59:34
--- NOTE | 2021-03-06 14:55 | HMH.CNCARD ---
History of Present Illness Consult date: 03/06/21 Requesting physician: Jason Castañeda Consult reason: shortness of breath Chief complaint: CHF and med management History of present illness: 80-year-old female presented to ED with worsening dizziness and weakness today. Patient had been evaluated 3 days ago in the ED after she had experienced a fall. Patient does noted to have moderate size hematoma over the right eye and ecchymosis of the forehead and eyes. Patient states that she has fallen x1 since being evaluated 3 days ago. Patient denies loss of consciousness. Patient states she becomes dizzy and then seems to lose her balance then falls. Patient denies chest pain, tightness or pressure. Patient planes of shortness of breath especially with exertion. Patient does complain of palpitations at times with exertion patient denies swelling of the lower extremities. Patient states she is having difficulty with the right leg and was due to follow-up with pain management in a few days. Patient states that she does have a bandage wrapping machine operator at [place] [id number] Dr. Key in which she has seen a few months ago. She states she was given a good evaluation by him. Patient does have history of coronary artery disease. Last heart catheterization was in 2017 which revealed normal coronaries, normal LVEF and normal pulmonary arteries. This heart catheterization was performed at [address] Last echocardiogram was in 2019 which revealed EF 30% with segmental wall motion abnormality, mild AI, severe MR and moderate TR noted. Patient states she has had multiple echoes performed with Dr. Kye. Upon this admission electrolyte imbalance is noted patient to have significant electrolyte imbalance. Patient does have severe hypokalemia, hyponatremia and hypomagnesium. Correction of electrolyte imbalance being managed by PCP. EKG reveals atrial pacing dual-chamber with a heart rate of 74 bpm. Due to ischemic cardiomyopathy and 2019, BiV AICD was placed. Patient states Dr. Key does manage care of her AICD. Patient does have chronic atrial fibrillation in which she is on Eliquis 5 mg twice daily. Due to her ischemic cardiomyopathy, patient is on a beta-ina and ARB. Patient also has history of left bundle branch block. History of obstructive sleep apnea in which she uses CPAP at night. Patient has history of hyperlipidemia and hypertension. This is all managed with Dr. Key and PCP. Cardiology was consulted due to congestive heart failure and pain management. AICD was interrogated. Interrogation revealed battery status 7.1 years, no events noted, AT/AF noted less than 0.1%. Optimal volume level stable. It appears patient may be dehydrated. Therefore we will stop diuretics at this time and continue slowly hydrating patient. Preliminary echo cardiogram reveals EF 50%. Waiting official echocardiogram results. Neck CTA:IMPRESSION: 1. Negative CTA of the neck 2. No aneurysm, AVM, or major intracranial occlusive process apparent. There is mild fusiform dilatation of the left internal carotid at the cavernous portion with mild calcific plaque of the carotids at the cavernous portion bilaterally. Head CT 1. No acute intracranial hemorrhage. 2. Large right frontal scalp/supraorbital and preseptal hematoma. Previously the there was a fat fluid level within the hematoma. The hematoma now is all hyperdense which could indicate a re bleed. The overall size is not significantly changed. Discussed plan of care with Dr. Soriano. Orders were received from Dr. Soriano. Obtain echocardiogram to assess LV function and valve status. Management and repletion of electrolytes being managed by PCP. Pending on the results of the echocardiogram, medication and treatment therapies may be recommended. We will stop diuretics at this time and continue slowly hydrating patient. Continue normal saline at 50 cc/h as managed by PCP. Thank you for al
[2021-03-06 15:45] LABS: Sodium 118 mmol/L (136-145)
[2021-03-06 15:49] LABS: Anion Gap 8.1 mEq/L (5-15); Blood Urea Nitrogen 9 mg/dl (7-17); Calcium 7.9 mg/dl (8.4-10.2); Carbon Dioxide 34 mmol/L (22.0-30.0); Creatinine Clearance Estimated 55 mL/min (50-200); Estimated Glomerular Filt Rate 97 ml/min (>60); GFR (African American) 117 ML/MIN (>60); Glucose 96 mg/dl (74-100); Magnesium 1.9 mg/dl (1.6-2.3)
[2021-03-06 15:52] LABS: Chloride 78 mmol/L (98-107)
[2021-03-06 15:56] LABS: Potassium 2.1 mmoL/L (3.5-5.1)
--- NOTE | 2021-03-06 15:57 | PC.NURSE ---
Critical lab values called at 0814. K+ 2.1 Cl 78 Na 118.name v# and lab results repeated back to lab personnel. Dr Jo notified at [phone]
--- NOTE | 2021-03-06 19:45 | PC.WOUNDNOTE ---
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
--- NOTE | 2021-03-06 19:46 | PC.WOUNDNOTE ---
skin tear to r fa
[2021-03-06 22:18] LABS: POC Glucose,Bedside 125 (70-110)
--- NOTE | 2021-03-06 22:25 | PC.NURSE ---
She is A&Ox3. She denies pain but then stated she is sore when moving. She ambulated to the bathroom with assist x1 with steady gait. She reports her last BM was on 03/05/21. Glucose at night was 127.
--- NOTE | 2021-03-06 23:43 | HMH.PHAVTE ---
[facility] Pharmacy VTE Monitoring - Patient Demographics Admission date: 03/06/21 Report Date: 03/06/21 Time: 23:43 Allergies/Adverse Reactions: Patient Allergies latex Allergy (Intermediate, Verified 12/15/20 11:36) I-RASH Sulfa (Sulfonamide Antibiotics) Allergy (Mild, Verified 12/15/20 11:36) NA-NAUSEA levofloxacin Adverse Reaction (Mild, Verified 12/15/20 11:36) Blurry Vision Height: 1.55 m Weight: 74.843 kg Patient Problems: Current Active Problems Cardiomyopathy (Acute) Mitral regurgitation (Acute) Hypokalemia (Acute) Hyponatremia (Acute) Hypomagnesemia (Acute) Head trauma (Acute) Knee contusion (Acute) Systolic CHF (Chronic) - VTE Risk Labs: VTE Related Lab Results Hgb 12.2 g/dL (12.2-16.2) 03/06/21 07:05 Hct 35.8 % (37.0-47.0) L 03/06/21 07:05 Plt Count 249 K/mm3 (142-424) 03/06/21 07:05 BUN 9 mg/dl (7-17) 03/06/21 15:25 Creatinine 0.60 mg/dl (0.52-1.04) 03/06/21 15:25 Estimated Creat Clear 55 mL/min (50-200) 03/06/21 15:25 Was VTE Risk Assessment Performed: Yes VTE Score: 2 VTE Risk Level: Very Low Risk Clinical Trial Participant: No - Prophylaxis VTE Prophylaxis Ordered?: Yes Types of VTE Prophylaxis: TEDS Knee High, Pharmacological Pharmacologic Type: Heparin
[2021-03-07] VITALS (12 sets, daily range): BP systolic 132–153; BP diastolic 65–89; PULSE 60–80; RESP 16–19; TEMP 36.4–36.8; O2SAT 92–96; BMI 36.8
[2021-03-07 06:57] LABS: Basophils % 0.3 % (0.1-2.0); Eosinophils # 0.2 K/mm3 (0.0-0.4); Eosinophils % 2.4 % (0.1-12.0); Hematocrit 32.9 % (37.0-47.0); Hemoglobin 11.3 g/dL (12.2-16.2); Lymphocytes % 10.2 % (10-50); Mean Corpuscular HGB Conc 34.4 g/dL (31.8-35.4); Mean Corpuscular Hemoglobin 26.7 pg (27.0-31.2); Mean Corpuscular Volume 77.8 fl (81-99); Mean Platelet Volume 7.9 fl (7.4-10.4); Monocytes # 0.7 K/mm3 (0.1-1.0); Monocytes % 6.6 % (1.7-9.3); Neutrophils # 8.1 K/mm3 (1.8-7.8); Neutrophils % 80.5 % (37.0-80.0); Platelet Count 221 K/mm3 (142-424); Red Blood Count 4.23 M/mm3 (4.20-5.40); Red Cell Distribution Width 15.2 % (11.5-17.5)
[2021-03-07 07:09] LABS: Anion Gap 8.3 mEq/L (5-15); Blood Urea Nitrogen 9 mg/dl (7-17); Calcium 7.6 mg/dl (8.4-10.2); Carbon Dioxide 33 mmol/L (22.0-30.0); Chloride 82 mmol/L (98-107); Creatinine Clearance Estimated 65 mL/min (50-200); Estimated Glomerular Filt Rate 81 ml/min (>60); GFR (African American) 98 ML/MIN (>60); Glucose 100 mg/dl (74-100); Magnesium 1.9 mg/dl (1.6-2.3); Sodium 121 mmol/L (136-145)
[2021-03-07 07:12] LABS: Potassium 2.3 mmoL/L (3.5-5.1)
--- NOTE | 2021-03-07 08:07 | HMH.ACPN2 ---
Internal Medicine - PN: Subj *Date: 03/07/21 *Time: 08:07 Interval history: Patient feels much better, has been up and around, had a bowel movement this morning that was normal. She feels like her legs are stronger. Exam Vital signs and Labs for Last 24 Hours: Temp Pulse Resp BP Pulse Ox 98.1 F 74 18 146/83 H 92 L 03/07/21 03:23 03/07/21 06:35 03/07/21 03:23 03/07/21 03:23 03/07/21 03:23 Laboratory Results - last 24 hr 03/06/21 07:05: Procalcitonin 0.226 03/06/21 07:05: NT-Pro-B Natriuret Pep 686 H 03/06/21 07:05: Total Creatine Kinase 129 03/06/21 08:03: VBG pH 7.47 H, VBG pCO2 42.6, VBG pO2 37.7, VBG HCO3 30.2 H, VBG Total CO2 31.5 H, VBG O2 Saturation 73.1 H, VBG Base Excess 6.6 H 03/06/21 08:17: SARS-CoV-2 (PCR) Not detected, Influenza A Untype (PCR) Not detected, Influenza Type B (PCR) Not detected 03/06/21 15:25: Sodium 118 L, Potassium 2.1 L*, Chloride 78 L, Carbon Dioxide 34 H, Anion Gap 8.1, BUN 9, Creatinine 0.60, Estimated Creat Clear 55, Estimated GFR 97, Est GFR ( Amer) 117, Glucose 96, Calcium 7.9 L, Magnesium 1.9 D 03/06/21 22:11: POC Glucose 125 H 03/07/21 06:20: WBC 10.0 D, RBC 4.23, Hgb 11.3 L, Hct 32.9 L, MCV 77.8 L, MCH 26.7 L, MCHC 34.4, RDW 15.2, Plt Count 221, MPV 7.9, Neut % (Auto) 80.5 H, Lymph % (Auto) 10.2, [place] % (Auto) 6.6, Eos % (Auto) 2.4, Baso % (Auto) 0.3, Neut # (Auto) 8.1 H, Lymph # (Auto) 1.0, [place] # (Auto) 0.7, Eos # (Auto) 0.2, Baso # (Auto) 0.0 03/07/21 06:20: Sodium 121 L, Potassium 2.3 L*, Chloride 82 L, Carbon Dioxide 33 H, Anion Gap 8.3, BUN 9, Creatinine 0.70, Estimated Creat Clear 65, Estimated GFR 81, Est GFR ( Amer) 98, Glucose 100, Calcium 7.6 L, Magnesium 1.9 I & O for Last 24 hours: Intake & Output 03/04/21 03/05/21 03/06/21 03/07/21 11:59 11:59 11:59 11:59 Intake Total 836 / 836 Balance 836 / 836 Weight 198 lb 195 lb 1 oz Narrative: Bruising around eyes unchanged. Heart rate regular, abdomen soft, lungs clear, no peripheral edema, alert and oriented, Assessment and Plan (1) Systolic CHF Status: Chronic Category: Medical Code(s): I50.20 - Unspecified systolic (congestive) heart failure (2) Head trauma Status: Acute Qualifiers: Encounter type: subsequent encounter Qualified Code(s): S09.90XD - Unspecified injury of head, subsequent encounter Category: Medical Code(s): S09.90XA - Unspecified injury of head, initial encounter (3) Hypokalemia Status: Acute Category: Medical Code(s): E87.6 - Hypokalemia (4) Hypomagnesemia Status: Acute Category: Medical Code(s): E83.42 - Hypomagnesemia (5) Hyponatremia Status: Acute Category: Medical Code(s): E87.1 - Hypo-osmolality and hyponatremia (6) Cardiomyopathy Status: Acute Qualifiers: Cardiomyopathy type: unspecified Qualified Code(s): I42.9 - Cardiomyopathy, unspecified Category: Medical Code(s): I42.9 - Cardiomyopathy, unspecified (7) Mitral regurgitation Status: Acute Qualifiers: Cardiac valve disease etiology: nonrheumatic Qualified Code(s): I34.0 - Nonrheumatic mitral (valve) insufficiency Category: Medical Code(s): I34.0 - Nonrheumatic mitral (valve) insufficiency - Assessment and plan all Dx Assessment and Plan for all problems:: Patient seems much better today. EF has improved nicely with her AICD in place. Administer slightly higher rate of NS today with some potassium. If sodium and potassium more normal tomorrow consider discharge, PT/OT evaluation today.
--- NOTE | 2021-03-07 08:49 | HMH.PNCARD ---
Subjective Date: 03/07/21 Time: 08:45 Principal diagnosis: Fall, CHF Interval history: 80-year-old female presented to ED with worsening dizziness and weakness yesterday. Patient does noted to have moderate size hematoma over the right eye and ecchymosis of the forehead and eyes from a fall 3-4 days ago. Patient denies chest pain, tightness or pressure. Patient planes of shortness of breath especially with exertion. Patient stated shortness of breath has improved. No swelling of the lower extremities. Patient states she is having difficulty with the right leg and was due to follow-up with pain management in a few days. Patient states that she does have a culturist at [place] [address] Dr. Key in which she has seen a few months ago. She states she was given a good evaluation by him. Patient does have history of coronary artery disease. Upon this admission electrolyte imbalance is noted patient to have significant electrolyte imbalance. Patient does have severe hypokalemia, hyponatremia and hypomagnesium, which are slowly being replemished. Patient is tolerating slow hydration and replenishing electrolytes. 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 Due to history of ischemic cardiomyopathy and 2019, BiV AICD was placed. Patient states Dr. Key does manage care of her AICD. AICD was interrogated yesterday. Interrogation revealed battery status 7.1 years, no events noted, AT/AF noted less than 0.1%. Optimal volume level stable. It appears patient may be dehydrated. Therefore diuretics were stopped. Echocardiogram revealed EF 55% with no regional wall motion abnormality and mild MR and TR regurgitation. There is mild aortic insufficiency noted. Patient is to start physical therapy today to increase stamina. Conclusion 1. Mild biatrial abdomen, normal left ventricular size, mild concentric left ventricular hypertrophy, visually estimated ejection fraction 55% with no regional wall motion abnormality, diastolic parameters are inconclusive. 2. Mildly enlarged right ventricle with normal contractility. 3. Mild mitral and tricuspid regurgitation. 4. Thickened and calcified aortic valve without aortic stenosis, there is mild aortic insufficiency. 5. No significant pericardial effusion noted. Discussed plan of care with Dr. Soriano. Orders were received from Dr. Soriano. Diuretics were stopped yesterday due to dehydration. Patient will need continue to have slow hydration and replenished electrolytes. This is being managed by PCP. Hopefully patient will respond to this treatment. Please notify cardiology of any changes in patient status. Thank you for allowing cardiology to participate in the care of this patient. Exam Vital signs and Labs for Last 24 Hours: Temp Pulse Resp BP Pulse Ox 98.3 F 66 16 147/87 H 95 03/07/21 08:00 03/07/21 08:00 03/07/21 08:00 03/07/21 08:00 03/07/21 08:00 Laboratory Results - last 24 hr 03/06/21 08:17: SARS-CoV-2 (PCR) Not detected, Influenza A Untype (PCR) Not detected, Influenza Type B (PCR) Not detected 03/06/21 15:25: Sodium 118 L, Potassium 2.1 L*, Chloride 78 L, Carbon Dioxide 34 H, Anion Gap 8.1, BUN 9, Creatinine 0.60, Estimated Creat Clear 55, Estimated GFR 97, Est GFR ( Amer) 117, Glucose 96, Calcium 7.9 L, Magnesium 1.9 D 03/06/21 22:11: POC Glucose 125 H 03/07/21 06:20: WBC 10.0 D, RBC 4.23, Hgb 11.3 L, Hct 32.9 L, MCV 77.8 L, MCH 26.7 L, MCHC 34.4, RDW 15.2, Plt Count 221, MPV 7.9, Neut % (Auto) 80.5 H, Lymph % (Auto) 10.2, [place] % (Auto) 6.6, Eos % (Auto) 2.4, Baso % (Auto) 0.3, Neut # (Auto) 8.1 H, Lymph # (Auto) 1.0, [place] # (Auto) 0.7, Eos # (Auto) 0.2, Baso # (Auto) 0.0 03/07/21 06:20: Sodium 121 L, Potassium 2.3 L*, Chloride 82 L, Carbon Dioxide 33 H, Anion Gap 8.3, BUN 9, Creatinine 0.70, Estimated Creat Clear 65, Estimated GFR 81, Est GFR ( Amer) 98, Glucose 100, Calcium 7.6 L, Magnesium 1.9 I & O f
--- NOTE | 2021-03-07 09:39 | HMH.PTEV ---
Physical Therapy Evaluation Rehab PT IP Evaluation Start: 03/07/21 08:06 Freq: ONCE Status: Active Protocol: Document 03/07/21 09:28 PHOKENYA (Rec: 03/07/21 09:39 PHORNE [id number]) Subjective/History History History 80 yowf adm to [facility] with general weakness, fall ~ 1 wk ago with multiple facial and L knee contusions. She reports she lives at home with and is generally independent with all mobility. Subjective Subjective Pt with no c/o this am. Rehab PT IP Eval Objective Appearance Patient Behavior Appropriate Patient Orientation Person,Place,Time Difficulty following instructions none Speech Pattern Clear Ambulation Patient Able to Ambulate Yes Ambulation Observation Ambulation Distance (feet) 30 Ambulation Assistive Device None Ambulation Ability Supervision/Stand by Balance Ability to Arise Able, uses arms to help Sitting Balance Steady, safe Standing Balance Steady, wide stance Dynamic Sitting Balance Ability Good Dynamic Standing Balance Ability Fair Transfers Bed Transfer Ability Supervision/Stand by Chair Transfer Ability Supervision/Stand by Sit to Stand Bed Transfer Ability Supervision/Stand by Sit to Stand Chair Transfer Ability Supervision/Stand by ROM All Extremities PT ROM Status WFL MMT All Extremities PT MMT WFL Rehab PT IP prob,goals,plan Problems Date of Evaluation: 03/07/21 Discharge Plan PT Discharge Plan Pt is appropriate to return home once medically stable. Recommend Home Health therapy upon d/c. G -code Required No Eval Complexity Eval Charge Codes 96667 - Moderate Complexity PHYSICIAN CERTIFICATION: I certify the specified therapy services for Kathy Jimenez are required, authorized, and reviewed every 30 days.
--- NOTE | 2021-03-07 09:45 | HMH.OTEV ---
OT Inpatient Evaluation Rehab OT IP Evaluation Start: 03/07/21 08:06 Freq: ONCE Status: Complete Protocol: Document 03/07/21 09:37 [facility] (Rec: 03/07/21 09:44 [facility] [id number]) Rehab OT IP Assessment Subjective History Pt oriented x 3 on arrival. Pt agreeable to engage in therapy evaluation. Pt was admitted via ED on 03/06/21 due to syncope and dizziness. Pt has a past medical history of Anxiety, Arrhythmia, Asthma, Atrial Fibrillation, Cardiomyopathy, Coronary Artery Disease, Gastroesophageal Reflux Disease(GERD), Heart Murmur, Hyperlipidemia, Hypertension, Internal Pacemaker, Lung Disease, 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, Valvular Heart Disease (mitral regurg). Pt reports she had a fall last friday at [employer]. Pt has large hematoma on face and knee. Pt explains prior to being in hosptial she lived at home with her . She reports she was independent with all ADLs and IADLS. Pt did not use a walker during ambulation . Pt also still drove. Subjective I can still drive. Objective Patient Orientation Person,Place,Birthday Upper Extremity Gross ROM WFL Bed Mobility bed mobility-scooting,bed mobility - supine/sit,bed mobility - rolling Assist Level Supervision/Stand by Transfer Training Sit/Stand Transfer Assist Level Supervision/Stand by Chair Transfer Ability Supervision/Stand by Chair Transfer Technique Sit to/from Ambulatory Chair Transfer Assistive Devices None Lower Body Dressing Ability Standby Assistance Overall Commode/Toilet Transfer Ability Standby Assistance Commode/Toilet Transfer Technique Sit to/from Ambulatory Rehab OT IP prob,goals,plan Problems Date of Evaluation: 03/07/21 Rehab Potential Rehab Potential Innapropriate for Skilled Therapy Discharge Plan OT Discharge Plan Pt appears to be at her baseline functionally. Pt can
--- NOTE | 2021-03-07 10:09 | HMH.PHAINT ---
VERIFIED HOME MEDICATION LIST WITH LISTS FROM DR CASTILLO' OFFICE AND OUTPATIENT PHARMACY
[2021-03-07 16:37] LABS: POC Glucose,Bedside 107 (70-110)
--- NOTE | 2021-03-07 18:45 | PC.NURSE ---
Pt alert and oriented and able to make needs known. RR even and unlabored. NAD. Pt is resting in bed at this time. VSS. No acute changes this shift. New dsg applied to RFA after removing old dsg from skin tear. The RFA appears to be healing well. Family here this shift to visit. Paced on tele. Meds given per oct. CB in reach.
--- NOTE | 2021-03-07 19:54 | PC.NURSE ---
600 cc po intake this shift on 1500 cc fluid restriction.
[2021-03-07 23:06] LABS: POC Glucose,Bedside 101 (70-110)
[2021-03-08] VITALS: BP 130/62; PULSE 66; PULSE 70; RESP 17; TEMP 36.6; O2SAT 96
[2021-03-08 04:00] VITALS: BP 150/66; PULSE 70; RESP 18; TEMP 36.6; O2SAT 96
--- NOTE | 2021-03-08 04:18 | PC.NURSE ---
No acute changes. Pt has rested well this shift. Has c/o discomfort to (L) knee this shift. Edema, bruising and a scab was noted during assessment. Medications administered per mar. VSS. Pt is paced on telemetry. No other concerns. Will continue to monitor.
[2021-03-08 05:16] VITALS: BMI 37.8
[2021-03-08 05:42] LABS: Basophils % 0.4 % (0.1-2.0); Eosinophils # 0.2 K/mm3 (0.0-0.4); Eosinophils % 2.6 % (0.1-12.0); Hematocrit 32.2 % (37.0-47.0); Hemoglobin 11.2 g/dL (12.2-16.2); Lymphocytes # 1.8 K/mm3 (0.7-4.5); Mean Corpuscular HGB Conc 34.7 g/dL (31.8-35.4); Mean Corpuscular Hemoglobin 27.6 pg (27.0-31.2); Mean Corpuscular Volume 79.6 fl (81-99); Mean Platelet Volume 8.2 fl (7.4-10.4); Monocytes # 0.8 K/mm3 (0.1-1.0); Monocytes % 8.2 % (1.7-9.3); Neutrophils # 6.3 K/mm3 (1.8-7.8); Neutrophils % 68.7 % (37.0-80.0); Platelet Count 226 K/mm3 (142-424); Red Blood Count 4.05 M/mm3 (4.20-5.40); Red Cell Distribution Width 15.7 % (11.5-17.5); White Blood Count 9.1 K/mm3 (4.8-10.8)
[2021-03-08 05:52] LABS: Anion Gap 6.6 mEq/L (5-15); Blood Urea Nitrogen 8 mg/dl (7-17); Calcium 7.8 mg/dl (8.4-10.2); Carbon Dioxide 30 mmol/L (22.0-30.0); Chloride 98 mmol/L (98-107); Creatinine Clearance Estimated 67 mL/min (50-200); Estimated Glomerular Filt Rate 97 ml/min (>60); GFR (African American) 117 ML/MIN (>60); Glucose 91 mg/dl (74-100); Potassium 3.6 mmoL/L (3.5-5.1); Sodium 131 mmol/L (136-145)
[2021-03-08 06:22] LABS: POC Glucose,Bedside 96 (70-110)
[2021-03-08 06:43] VITALS: PULSE 66; O2SAT 96
--- NOTE | 2021-03-08 07:42 | HMH.DCSUM ---
General - General Admission date:: 03/06/21 Discharge date: 03/08/21 HPI HPI: 80-year-old female with history of biventricular AICD, cardiomyopathy, CHF (last echo in our system 2019 severely reduced EF of 30% and mitral valve regurgitation), and recent presentation to the ER last week with a fall causing hematoma on her face. She presents today due to persistent weakness and fatigue at home. States she has been having increasing dizziness and nausea. In the ER she was assessed for her fatigue, dizziness. Labs showing severe hypokalemia, hypomagnesemia, hyponatremia. Alert with minimal disorientation. EKG obtained showing paced rhythm. Medicine was contacted for admission and further management. Patient given 2 g magnesium, potassium chloride repletion ordered, status post 1 L normal saline. Repeat imaging of her head showed stable findings, no new intracranial bleeds; only pre-existing injuries. On assessment, she is pleasant, slow to recall but able to answer questions appropriately. Reports no nausea or vomiting. Does have some epigastric discomfort however. States she feels better after fluid resuscitation. Denies diarrhea, fever, chest pain. Prominent bruising noted on face. Reports following with cardiology in [place] (Dr. Key). Hospital Course Hospital Course: Patient was admitted after finding severe electrolyte disturbances in the emergency department. She was continued on heparin, and blood counts were monitored which were stable. She had significant electrolyte disturbances with hypomagnesemia, hypocalcemia, hyponatremia and hypokalemia which were replaced slowly with very cautious IV fluids and potassium supplementation. Cardiology here consulted, echocardiogram was performed which revealed improving ejection fraction over her baseline, in the 50% range, pacemaker was interrogated and was functioning appropriately. Her electrolyte issues improved and this morning sodium had almost normalized to 131 and potassium is normal. Physical therapy was consulted because of her weakness and falls. They recommended either a short-term skilled care stay or home health. Patient was unwilling to consider any skilled care facilities outside of [facility] and as a result she will be referred to home health. Patient is unable to leave her home without difficulty based on my [id number] examination today secondary to imbalance and falls. She needs evaluation for PT/OT/home safety evaluation and nursing. She needs a CBC and BMP performed on March 12 to reevaluate her electrolyte issues. In regards to anticoagulation therapy, patient is in a paced rhythm and has normalized ejection fraction. Given her very real incidence of falls I do not believe anticoagulation therapy is warranted at this point of advised that she stop it until she sees her high reach operator. In addition, given her normalized ejection fraction I recommended that she stop metolazone given its propensity for significant electrolyte disturbances. Objective Vital signs: Temp Pulse Resp BP Pulse Ox 97.9 F 66 18 150/66 H 96 03/08/21 04:00 03/08/21 06:43 03/08/21 04:00 03/08/21 04:00 03/08/21 06:43 no acute distress, obese - *Routine HEENT Exam Head: Present: hematoma Eye: Present: EOMI, PERRL ENT: Present: mucous membranes moist Comments: Orbital bruising with resolving hematoma above the right orbit. EOMI and no bleeding in the conjunctiva noted - *Routine Neck Exam Present: supple - *Routine Respiratory Exam Present: CTA bilaterally - *Routine Cardiovascular Exam Present: RRR - *Routine Abdominal Exam Present: soft, normoactive bowel sounds. Absent: tenderness - *Routine Extremities Exam Absent: cyanosis, clubbing, edema - *Routine Skin Exam Present: warm. Absent: rash - *Routine Neurological Exam Present: alert Globally weak but no focal deficits. - Detailed Eye Exam Eyelids: Bilateral norm
--- NOTE | 2021-03-08 07:45 | SW/DCPLANNER ---
Addendum entered by Margaret Padilla 03/08/21 11:21: HOME HEALTH REFERRAL WAS GIVING FOR HOME HEALTH PRISON, PT/OT AND HOME SAFETY EVALUATE AND TREAT... I SPOKE WITH PATIENT AND SHE WISHES TO USE [facility]... THIS WAS SET UP WITH PATIENT DISCHARGING TODAY AND TO BE SEEN IN THE AM TO START SERVICES..PATIENT STATED WILL BE HERE TO GET HER LATER IN THE DAY.... Original Note: MADE ROUNDS WITH DR ALLISON THIS MORNING AND HE IS SENDING THIS PATIENT HOME TODAY WITH HOME HEALTH SERVICES....I WILL GO BACK IN AND SEE WHO SHE WISHES TO USE HER HOME HEALTH AGENCY AND SET THIS UP FOR SERVICES TO START IN THE AM...
--- NOTE | 2021-03-08 07:47 | HMH.PNCARD ---
Subjective Date: 03/08/21 Time: 07:45 Principal diagnosis: Fall, CHF Interval history: 80-year-old female admitted to facility with worsening dizziness and weakness due to falls in the past week. Patient does noted to have moderate size hematoma over the right eye and ecchymosis of the forehead and eyes from a fall 4-5 days ago. Patient denies chest pain, tightness or pressure. Patient denies shortness of breath. Pt is sitting up in a chair with no difficulties. No swelling of the lower extremities. Upon this admission electrolyte imbalance was noted to be severely depleted. Electrolyte imbalance has been corrected by slow hydration to reduce risk of overload. threat monitoring analyst reveals atrial pacing dual-chamber with a heart rate of 78 bpm. Due to history of ischemic cardiomyopathy and 2019, BiV AICD was placed. Patient states Dr. Key does manage care of her AICD. AICD was interrogated yesterday. Interrogation revealed battery status 7.1 years, no events noted, AT/AF noted less than 0.1%. Optimal volume level stable. Therefore diuretics were stopped. Echocardiogram revealed EF 55% with no regional wall motion abnormality and mild MR and TR regurgitation. There is mild aortic insufficiency noted. Patient has started physical therapy, and is responding well. VS stable. Conclusion 1. Mild biatrial abdomen, normal left ventricular size, mild concentric left ventricular hypertrophy, visually estimated ejection fraction 55% with no regional wall motion abnormality, diastolic parameters are inconclusive. 2. Mildly enlarged right ventricle with normal contractility. 3. Mild mitral and tricuspid regurgitation. 4. Thickened and calcified aortic valve without aortic stenosis, there is mild aortic insufficiency. 5. No significant pericardial effusion noted. Discussed plan of care with Dr. Soriano. Orders were received from Dr. Soriano. Hemodynamically patient is stable to be discharged. Due to frequent falls, Eliquis should not be restarted. Recommend not to restart diuretics at this time, due to her severe electrolyte imbalance dehydration. Patient is to follow-up with Dr. Key in 1 to 2 weeks or sooner if symptoms develop/persist. Patient can discuss with Dr. Key regarding diuretics and anticoagulation. Thank you for allowing cardiology to participate in the care of this patient. Exam Vital signs and Labs for Last 24 Hours: Temp Pulse Resp BP Pulse Ox 97.9 F 66 18 150/66 H 96 03/08/21 04:00 03/08/21 06:43 03/08/21 04:00 03/08/21 04:00 03/08/21 06:43 Laboratory Results - last 24 hr 03/07/21 15:50: POC Glucose 107 03/07/21 20:52: POC Glucose 101 03/08/21 05:16: POC Glucose 96 03/08/21 05:17: WBC 9.1, RBC 4.05 L, Hgb 11.2 L, Hct 32.2 L, MCV 79.6 L, MCH 27.6, MCHC 34.7, RDW 15.7, Plt Count 226, MPV 8.2, Neut % (Auto) 68.7, Lymph % (Auto) 20.0, Waller % (Auto) 8.2, Eos % (Auto) 2.6, Baso % (Auto) 0.4, Neut # (Auto) 6.3, Lymph # (Auto) 1.8, Waller # (Auto) 0.8, Eos # (Auto) 0.2, Baso # (Auto) 0.0 03/08/21 05:17: Sodium 131 L, Potassium 3.6 D, Chloride 98, Carbon Dioxide 30, Anion Gap 6.6, BUN 8, Creatinine 0.60, Estimated Creat Clear 67, Estimated GFR 97, Est GFR ( Amer) 117, Glucose 91, Calcium 7.8 L I & O for Last 24 hours: Intake & Output 03/05/21 03/06/21 03/07/21 03/08/21 23:59 23:59 23:59 23:59 Intake Total 240 / 240 2335 / 2335 Output Total 400 / 400 Balance 240 / 240 1935 / 193 Weight 165 lb 195 lb 1 oz 200 lb 8 oz - Constitutional no acute distress, obese, cooperative - *Routine HEENT Exam Head: Present: normocephalic ENT: Present: mucous membranes moist Comments: Hematoma and ecchymosis noted on the forehead and right eye. Left eye noted with ecchymosis. - *Routine Neck Exam Present: supple, full ROM, normal carotid upstroke. Absent: JVD, carotid bruit, lymphadenopathy - *Routine Respiratory Exam Present: accessory muscle use, CTA bilater
[2021-03-08 08:00] VITALS: BP 120/46; PULSE 74; PULSE 75; RESP 17; TEMP 36.5; O2SAT 97
--- NOTE | 2021-03-08 10:59 | HMH.PHAINT ---
MEDICATION DISCHARGE COUNSELING COMPLETED. PATIENT ENDORSED NO QUESTIONS AT THIS TIME.
== END 2021-03-08 11:45 | disposition home health service (06) ==
LOC: ER 08:22 → ICU 12:11 → OB 14:06 → 2ND 18:07
PROVIDERS: Emergency Medicine; Internal Medicine Adolescent Medicine; Admitting Provider Internal Medicine Adolescent Medicine; Emergency Provider Student in an Organized Health Care Education/Training Program; PCP Internal Medicine; Visit Provider Internal Medicine Adolescent Medicine
DX: I50.22 Chronic systolic (congestive) heart failure (principal); I11.0 Hypertensive heart disease with heart failure; I48.20 Chronic atrial fibrillation, unspecified; E87.1 Hypo-osmolality and hyponatremia; I25.5 Ischemic cardiomyopathy; I34.0 Nonrheumatic mitral (valve) insufficiency; Z95.810 Presence of automatic (implantable) cardiac defibrillator; Z91.81 History of falling; E87.6 Hypokalemia; I25.10 Atherosclerotic heart disease of native coronary artery without angina pectoris; Z79.899 Other long term (current) drug therapy; Z20.822 Contact with and (suspected) exposure to COVID-19; Z88.8 Allergy status to other drugs, medicaments and biological substances; W19.XXXA Unspecified fall, initial encounter
CPT/HCPCS: 36415; 70450; 70496; 70498; 71045; 73562; 80048; 80053; 81001; 82550; 82803; 82962; 83735; 83880; 84145; 84484; 85007; 85025; 86140; 93005; 93306; 94640; 96365; 96367; 96375; 97162; 97166; 99284; Q9967; U0003

== ENCOUNTER → 2021-03-19 17:45 | Outpatient (CLI) | payer MEDICARE, OTHER, SELFPAY ==
[2021-03-19 19:41] LABS: Basophils # 0.1 K/mm3 (0-0.2); Basophils % 0.6 % (0.1-2.0); Eosinophils # 0.2 K/mm3 (0.0-0.4); Eosinophils % 1.2 % (0.1-12.0); Hematocrit 37.3 % (37.0-47.0); Hemoglobin 12.5 g/dL (12.2-16.2); Lymphocytes # 2.6 K/mm3 (0.7-4.5); Lymphocytes % 18.6 % (10-50); Mean Corpuscular HGB Conc 33.5 g/dL (31.8-35.4); Mean Corpuscular Hemoglobin 28.3 pg (27.0-31.2); Mean Corpuscular Volume 84.4 fl (81-99); Monocytes # 0.8 K/mm3 (0.1-1.0); Monocytes % 5.5 % (1.7-9.3); Neutrophils # 10.2 K/mm3 (1.8-7.8); Neutrophils % 74.1 % (37.0-80.0); Platelet Count 282 K/mm3 (142-424); Red Blood Count 4.42 M/mm3 (4.20-5.40); White Blood Count 13.7 K/mm3 (4.8-10.8)
[2021-03-19 19:54] LABS: Anion Gap 13.9 mEq/L (5-15); Blood Urea Nitrogen 13 mg/dl (7-17); Calcium 8.8 mg/dl (8.4-10.2); Carbon Dioxide 28 mmol/L (22.0-30.0); Chloride 101 mmol/L (98-107); Estimated Glomerular Filt Rate 69 ml/min (>60); GFR (African American) 84 ML/MIN (>60); Glucose 97 mg/dl (74-100); Potassium 4.9 mmoL/L (3.5-5.1); Sodium 138 mmol/L (136-145)
== END ==
PROVIDERS: Visit Provider Internal Medicine
DX: E87.1 Hypo-osmolality and hyponatremia (principal); E87.6 Hypokalemia; I10 Essential (primary) hypertension
CPT/HCPCS: 80048; 85025

== ENCOUNTER → 2021-04-04 18:13 | Outpatient (CLI) | payer MEDICARE, OTHER, SELFPAY ==
[2021-04-04 19:13] LABS: Anion Gap 15.5 mEq/L (5-15); Blood Urea Nitrogen 14 mg/dl (7-17); Calcium 9.1 mg/dl (8.4-10.2); Carbon Dioxide 27 mmol/L (22.0-30.0); Chloride 102 mmol/L (98-107); Estimated Glomerular Filt Rate 61 ml/min (>60); GFR (African American) 73 ML/MIN (>60); Glucose 94 mg/dl (74-100); Potassium 4.5 mmoL/L (3.5-5.1); Sodium 140 mmol/L (136-145)
== END ==
PROVIDERS: Visit Provider Internal Medicine
DX: I10 Essential (primary) hypertension (principal); E87.1 Hypo-osmolality and hyponatremia
CPT/HCPCS: 80048

== ENCOUNTER → 2021-04-11 12:50 | Outpatient (CLI) | payer MEDICARE, SELFPAY | PROVIDERS: PCP Internal Medicine; Visit Provider Internal Medicine | DX: Z20.822 Contact with and (suspected) exposure to COVID-19 (principal); U07.1 COVID-19 | CPT/HCPCS: U0003 ==

== ENCOUNTER 2021-04-15 07:52 | Outpatient (CLI) | payer MEDICARE, OTHER, SELFPAY ==
[2021-04-15] VITALS (7 sets, daily range): BP systolic 140–195; BP diastolic 90–106; PULSE 60–71; RESP 18–22; TEMP 36.6–36.9; O2SAT 94–99
== END 2021-04-15 10:43 | disposition home or self-care (01) ==
PROVIDERS: PCP Internal Medicine; Visit Provider Internal Medicine
DX: U07.1 COVID-19 (principal)
CPT/HCPCS: 96365

== ENCOUNTER → 2021-05-15 17:04 | Outpatient (CLI) | payer MEDICARE, OTHER, SELFPAY ==
[2021-05-15 17:33] LABS: Chloride 103 mmol/L (98-107); Sodium 140 mmol/L (136-145)
[2021-05-15 17:36] LABS: Blood Urea Nitrogen 11 mg/dl (7-17); Calcium 8.8 mg/dl (8.4-10.2); Carbon Dioxide 30 mmol/L (22.0-30.0); Estimated Glomerular Filt Rate 81 ml/min (>60); GFR (African American) 98 ML/MIN (>60); Glucose 86 mg/dl (74-100)
== END ==
PROVIDERS: Visit Provider Internal Medicine
DX: I10 Essential (primary) hypertension (principal)
CPT/HCPCS: 80048

== ENCOUNTER → 2021-06-15 15:25 | Outpatient (CLI) | payer MEDICARE, OTHER, SELFPAY ==
[2021-06-15 16:44] LABS: Basophils # 0.1 K/mm3 (0-0.2); Basophils % 0.5 % (0.1-2.0); Eosinophils # 0.2 K/mm3 (0.0-0.4); Eosinophils % 1.7 % (0.1-12.0); Hemoglobin 12.5 g/dL (12.2-16.2); Lymphocytes # 2.6 K/mm3 (0.7-4.5); Lymphocytes % 23.2 % (10-50); Mean Corpuscular HGB Conc 31.2 g/dL (31.8-35.4); Mean Corpuscular Hemoglobin 26.9 pg (27.0-31.2); Mean Corpuscular Volume 86.3 fl (81-99); Mean Platelet Volume 10.4 fl (7.4-10.4); Monocytes # 0.6 K/mm3 (0.1-1.0); Monocytes % 5.6 % (1.7-9.3); Neutrophils # 7.8 K/mm3 (1.8-7.8); Platelet Count 248 K/mm3 (142-424); Red Blood Count 4.64 M/mm3 (4.20-5.40); Red Cell Distribution Width 15.4 % (11.5-17.5); White Blood Count 11.2 K/mm3 (4.8-10.8)
[2021-06-15 18:14] LABS: Alanine Aminotransferase 13 U/L (12-78); Albumin Level 3.8 g/dl (3.5-5.0); Albumin/Globulin Ratio 1.5 (1.1-1.8); Alkaline Phosphatase 89 U/L (38-126); Anion Gap 11.2 mEq/L (5-15); Aspartate Amino Transferase 24 U/L (14-36); Bilirubin,Total 0.3 mg/dl (0.2-1.3); Blood Urea Nitrogen 14 mg/dl (7-17); Calcium 8.9 mg/dl (8.4-10.2); Carbon Dioxide 33 mmol/L (22.0-30.0); Chloride 101 mmol/L (98-107); Estimated Glomerular Filt Rate 69 ml/min (>60); GFR (African American) 84 ML/MIN (>60); Globulin 2.5 g/dL (1.3-3.2); Glucose 63 mg/dl (74-100); Potassium 4.2 mmoL/L (3.5-5.1); Sodium 141 mmol/L (136-145); Total Protein,Serum 6.3 g/dl (6.3-8.2)
[2021-06-15 19:18] LABS: Folate 6.39 ng/mL; Vitamin B12 458 pg/mL (239-931)
[2021-06-16 14:01] LABS: T4 (Thyroxine) 9.8 ug/dl (5.53-11.0)
[2021-06-16 14:14] LABS: Thyroid Stimulating Hormone 1.42 uIU/mL (0.465-4.68)
== END ==
PROVIDERS: Visit Provider Internal Medicine
DX: I11.0 Hypertensive heart disease with heart failure (principal); I50.20 Unspecified systolic (congestive) heart failure; I34.0 Nonrheumatic mitral (valve) insufficiency; E87.6 Hypokalemia; E87.1 Hypo-osmolality and hyponatremia; R68.84 Jaw pain; M15.0 Primary generalized (osteo)arthritis
CPT/HCPCS: 80053; 82607; 82746; 84436; 84443; 85025

== ENCOUNTER 2021-07-14 11:01 | Emergency (ER) | payer MEDICARE, OTHER, SELFPAY ==
[2021-07-14 11:09] VITALS: BP 158/78; PULSE 75; RESP 20; TEMP 36.9; O2SAT 93; BMI 37.0
--- NOTE | 2021-07-14 11:13 | XR_ITS ---
PROCEDURE INFORMATION: Exam: XR Chest Exam date and time: 07/14/2021 11:13 AM Age: 80 years old Clinical indication: Patient HX: Cough and SOA TECHNIQUE: Imaging protocol: XR of the chest. Views: 1 view. COMPARISON: CR XR CHEST PORTABLE 03/06/2021 8:46 AM FINDINGS: Tubes, catheters and devices: Cardiac rhythm maintenance device is in place. Lungs: Unremarkable. No consolidation. Pleural spaces: Unremarkable. No pleural effusion. No pneumothorax. Heart/Mediastinum: Unremarkable. No cardiomegaly. Bones/joints: Unremarkable. IMPRESSION: No acute cardiopulmonary abnormality.
--- NOTE | 2021-07-14 11:17 | HMH.EDGENADL ---
ED Disposition Clinical Impression: Sciatica of left side Asthmatic bronchitis Qualifiers: Asthma severity: mild Asthma persistence: intermittent Asthma complication type: with acute exacerbation Qualified Code(s): J45.21 - Mild intermittent asthma with (acute) exacerbation Disposition: Home, Self-Care Condition on Discharge: Good Instructions: DI for Sciatica Prescriptions: Hydrocod/Acet 5/325 mg [Susan 5/325mg tablet] 1 tab PO Q6HP PRN #10 tab PRN Reason: Moderate Pain Transmission Status: Sent to [facility] methocarbamoL [Methocarbamol] 750 mg PO QID 7 Days #28 tab Transmission Status: Pending to [facility] Referrals: Alfred Cantu [Primary Care Provider] - - Critical Care Critical Care Time: No Attestation: On 07/14/21, the high probability of a clinically significant, sudden or life threatening deterioration of the following system(s) required my full and direct attention, intervention and personal management. The time I documented below is in addition to time spent performing reported procedures but includes the following listed in this critical care notation. Medical Decision Making - Medical Records Medical records reviewed: Yes: I reviewed the patient's medical records. - Saad Inquiry Pt receiving controlled substance: No Vital Signs: 07/14/21 11:09 Temperature 98.4 F Temperature Source Oral Pulse Rate [Radial] 75 Respiratory Rate 20 Blood Pressure [Right Arm] 158/78 H Blood Pressure Mean [Right Arm] 104 02 Sat by Pulse Oximetry 93 L Oxygen Delivery Method Room Air Orders (Tests/Meds): ED MEDICATIONS Discontinued Medications Generic Name Dose Route Start Last Admin Trade Name Freq PRN Reason Stop Dose Admin Hydrocodone Bitart/Acetaminophen 1 tab 07/14/21 11:13 07/14/21 11:16 Apap/Hydrocodone 325mg/7.5mg Tab PO 07/14/21 11:14 1 tab ONCE ONE Administration Albuterol/Ipratropium 3 ml 07/14/21 11:13 07/14/21 11:16 Ipratropium/Albuterol 3 Ml Neb IH 07/14/21 11:14 3 ml ONCE ONE Administration - Radiology Data #1 Image(s): Chest Image Reviewed: Yes I reviewed the patient's radiology results, Yes I reviewed the patient's radiology image, Yes I have reviewed radiologist's interpretation Preliminary Findings: Normal/NAD, No Infiltrates Seen - Reevaluation(s) Time: 11:59 Reevaluation #1: On reevaluation, the patient is feeling better. Her pain is improved. Mobility is also improved. There is no finding pneumonia on chest x-ray. No hypoxia or respiratory distress. Patient will continue her steroid therapy that will help for asthma exacerbation as well as her back discomfort. Will discharge a short course of muscle relaxers analgesics. Needs follow-up with PCP in 48 hours. Given strict return precautions. Verbalized understanding. Medical Decision Narrative: 80-year-old female presented to the emergency department with some low back pain as well as cough. Patient does have some wheezing on examination. Concern for asthma exacerbation possible pneumonia. Patient was provided analgesics for her sciatic discomfort. Work-up initiated. General Adult HPI - General Chief complaint: PAIN Stated complaint: sciatica, chest congestion Time Seen by Provider: 07/14/21 11:15 Mode of Arrival: Wheelchair Limitations: No Limitations Description of Symptoms (Recalled from ER Triage Doc. by RN): pt to ed c/o left sciatic pain and chest congestion. pt states she has had limited mobility d/t her hip pain and has been laying in bed with a heating pad for days. - History of Present Illness HPI narrative: Is a 80-year-old female presented to the emergency department with some back pain and cough. Patient states that she has been dealing with a flareup of her sciatic pain. Located in her left lower back and radiates down her leg. She went and saw her primary care physician about a week and a half ago and was placed on some steroid
[2021-07-14 13:45] VITALS: BP 151/72; PULSE 71; RESP 19; TEMP 36.9; O2SAT 94
== END 2021-07-14 12:21 | disposition home or self-care (01) ==
PROVIDERS: Emergency Provider Emergency Medicine; PCP Internal Medicine
DX: M54.32 Sciatica, left side (principal); J45.21 Mild intermittent asthma with (acute) exacerbation; I25.10 Atherosclerotic heart disease of native coronary artery without angina pectoris; K21.9 Gastro-esophageal reflux disease without esophagitis; I10 Essential (primary) hypertension; E78.5 Hyperlipidemia, unspecified; Z79.899 Other long term (current) drug therapy
CPT/HCPCS: 71045; 99281

== ENCOUNTER → 2021-08-14 10:24 | Outpatient (CLI) | payer MEDICARE, OTHER, SELFPAY | PROVIDERS: Visit Provider Internal Medicine | DX: Z20.822 Contact with and (suspected) exposure to COVID-19 (principal) | CPT/HCPCS: C9803; U0003; U0005 ==

== ENCOUNTER → 2021-09-28 13:42 | Outpatient (CLI) | payer MEDICARE, OTHER, SELFPAY | PROVIDERS: Visit Provider Internal Medicine | DX: Z01.812 Encounter for preprocedural laboratory examination (principal); Z11.52 Encounter for screening for COVID-19 | CPT/HCPCS: C9803; U0003; U0005 ==

== ENCOUNTER → 2021-12-06 16:16 | Outpatient (CLI) | payer MEDICARE, OTHER, SELFPAY ==
[2021-12-06 17:07] LABS: Basophils # 0.1 K/mm3 (0-0.2); Basophils % 0.9 % (0.1-2.0); Eosinophils # 0.4 K/mm3 (0.0-0.4); Eosinophils % 3.5 % (0.1-12.0); Hematocrit 36.9 % (37.0-47.0); Hemoglobin 11.9 g/dL (12.2-16.2); Lymphocytes # 2.9 K/mm3 (0.7-4.5); Lymphocytes % 25.7 % (10-50); Mean Corpuscular HGB Conc 32.3 g/dL (31.8-35.4); Mean Corpuscular Hemoglobin 27.1 pg (27.0-31.2); Mean Corpuscular Volume 83.8 fl (81-99); Mean Platelet Volume 10.8 fl (7.4-10.4); Monocytes # 0.6 K/mm3 (0.1-1.0); Monocytes % 5.4 % (1.7-9.3); Neutrophils # 7.3 K/mm3 (1.8-7.8); Neutrophils % 64.6 % (37.0-80.0); Platelet Count 208 K/mm3 (142-424); Red Cell Distribution Width 16.3 % (11.5-17.5); White Blood Count 11.3 K/mm3 (4.8-10.8)
[2021-12-15 05:10] LABS: D001-IgE D pteronyssinus <0.10 kU/L (Class 0); D002-IgE D farinae <0.10 kU/L (Class 0); E001-IgE Cat Dander <0.10 kU/L (Class 0); E005-IgE Dog Dander <0.10 kU/L (Class 0); E072-IgE Mouse Urine <0.10 kU/L (Class 0); G002-IgE Bermuda Grass <0.10 kU/L (Class 0); G006-IgE Timothy Grass <0.10 kU/L (Class 0); I006-IgE Cockroach, German <0.10 kU/L (Class 0); Immunoglobulin E, Total 15 IU/mL (6-495); M001-IgE Penicillium chrysogen <0.10 kU/L (Class 0); M002-IgE Cladosporium herbarum <0.10 kU/L (Class 0); M003-IgE Aspergillus fumigatus <0.10 kU/L (Class 0); M006-IgE Alternaria alternata <0.10 kU/L (Class 0); T001-IgE Maple/Box Elder <0.10 kU/L (Class 0); T003-IgE Common Silver Birch <0.10 kU/L (Class 0); T006-IgE Cedar, Mountain <0.10 kU/L (Class 0); T007-IgE Oak, White <0.10 kU/L (Class 0); T008-IgE Elm, American <0.10 kU/L (Class 0); T010-IgE Walnut <0.10 kU/L (Class 0); T011-IgE Maple Leaf Sycamore <0.10 kU/L (Class 0); T014-IgE Cottonwood <0.10 kU/L (Class 0); T015-IgE Ash, White <0.10 kU/L (Class 0); T022-IgE Pecan, Hickory <0.10 kU/L (Class 0); T070-IgE White Mulberry <0.10 kU/L (Class 0); W001-IgE Ragweed, Short <0.10 kU/L (Class 0); W011-IgE Thistle, Russian <0.10 kU/L (Class 0); W014-IgE Pigweed, Common <0.10 kU/L (Class 0); W018-IgE Sheep Sorrel <0.10 kU/L (Class 0)
== END ==
PROVIDERS: Visit Provider Internal Medicine Pulmonary Disease
DX: J45.20 Mild intermittent asthma, uncomplicated (principal)
CPT/HCPCS: 36415; 82785; 85025; 86003

== ENCOUNTER → 2022-01-15 14:51 | Outpatient (CLI) | payer MEDICARE, OTHER, SELFPAY | PROVIDERS: PCP Internal Medicine; Visit Provider Internal Medicine Pulmonary Disease | DX: R06.09 Other forms of dyspnea (principal) | CPT/HCPCS: 94060; 94618; 94727; 94729 ==

== ENCOUNTER 2022-01-24 12:09 | Emergency (ER) | payer MEDICARE, OTHER, SELFPAY ==
[2022-01-24 12:10] VITALS: BP 144/74; PULSE 74; RESP 16; TEMP 36.9; O2SAT 94; BMI 37.0
--- NOTE | 2022-01-24 12:18 | HMH.EDGENADL ---
ED Disposition Clinical Impression: Urinary tract infection Laceration of knee Qualifiers: Encounter type: initial encounter Laterality: right Qualified Code(s): S81.011A - Laceration without foreign body, right knee, initial encounter Disposition: Home, Self-Care Condition on Discharge: Good Instructions: Urinary Tract Infection, How to Care for a Laceration After Repair Additional Instructions: Keep stitches clean and dry for the next 24 hours, then clean with regular soap and water. Monitor for redness and discharge which could suggest infection and if present, return to the ED for further evaluation Referrals: Alfred Cantu MD [Primary Care Provider] - 7-14 days (For Suture removal) Time of Disposition: 14:15 - Critical Care Critical Care Time: No Attestation: On 01/24/22, the high probability of a clinically significant, sudden or life threatening deterioration of the following system(s) required my full and direct attention, intervention and personal management. The time I documented below is in addition to time spent performing reported procedures but includes the following listed in this critical care notation. Medical Decision Making - Medical Records Medical records reviewed: Yes: I reviewed the patient's medical records. - Saad Inquiry Pt receiving controlled substance: No Vital Signs: 01/24/22 12:10 Temperature 98.5 F Temperature Source Oral Pulse Rate [Radial] 74 Respiratory Rate 16 Blood Pressure [Right Arm] 144/74 H Blood Pressure Mean [Right Arm] 97 Blood Pressure Position [Right Arm] Sitting 02 Sat by Pulse Oximetry 94 L Oxygen Delivery Method Room Air Orders (Tests/Meds): ED MEDICATIONS Generic Name Dose Route Start Last Admin Trade Name Freq PRN Reason Stop Dose Admin Methocarbamol 500 mg 01/24/22 12:35 01/24/22 13:11 Methocarbamol 500mg Tablet PO 02/23/22 12:36 500 mg BID CELI Administration Discontinued Medications Generic Name Dose Route Start Last Admin Trade Name Freq PRN Reason Stop Dose Admin Cephalexin HCl 500 mg 01/24/22 14:07 Cephalexin 500mg Capsule PO 01/24/22 14:08 ONCE ONE Ibuprofen 600 mg 01/24/22 12:35 01/24/22 13:11 Ibuprofen 600 Mg Tablet PO 01/24/22 12:36 600 mg ONCE ONE Administration Tetanus/Reduced Diphtheria/Acell Pertussis 0.5 ml 01/24/22 12:27 Tet/Diphth/Pert-Adult 0.5ml Syringe IM 01/24/22 12:28 .ONCE ONE ORDERS Category Date Time Status UA [Urinalysis and Microscopic] Stat Lab 01/24/22 14:08 Ordered Medical Decision Narrative: pt mentioned UTI sx, similar to prior, plan to collect UA, treat General Adult HPI - General Stated complaint: ao fall 01/24, right knee pain Time Seen by Provider: 01/24/22 12:18 Mode of Arrival: Ambulatory Source of Information: Patient Limitations: No Limitations - History of Present Illness HPI narrative: 81 yo/F, hx of hypertension, systolic CHF, pulmonary hypertension, has pacemaker and watchman, not on anticoagulant. Presents s/p mechanical fall, states she fell out the door on her deck, landed on right side. Denies hitting head or LOC, reports pain in right shoulder and right knee with associated laceration over the patella. Ambulatory after the event, denies any other deformities, any other injuries, any blurry or double vision, headache or any other symptoms. Doesn't recall last tdap. No treatments prior to this visit. - Related Data Home Medications Medication Instructions Recorded Confirmed carvedilol 25 mg tablet 25 mg PO BID 90 Days #360 tab 09/09/17 01/09/22 Aspirin [Aspirin 81mg EC Tab] 81 mg PO DAILY 08/26/19 01/09/22 Potassium Chloride [Klor-con 20 20 meq PO TID 08/26/19 01/09/22 mEq tablet] levalbuterol HCL [Xopenex 1.25 mg IH Q6H 08/26/19 01/09/22 1.25mg/3mL [facility]] Amiodarone HCl [Pacerone] 100 mg PO DAILY 03/06/21 01/09/22 diazePAM [diazePAM 5mg Tablet] 5 mg PO BIDP PRN 03/06/21 01/09/22 Amlodipine Besyl
--- NOTE | 2022-01-24 12:22 | PC.NURSE ---
ALO DAMON at speaking with patient
--- NOTE | 2022-01-24 12:25 | XR_ITS ---
FINAL REPORT CLINICAL HISTORY: fall, knee pain, laceration FINDINGS: Two views of the right knee were obtained. There is no evidence of fracture or dislocation. The bony alignment is normal. There are mild degenerative changes. There is no evidence of joint effusion. No localized soft tissue abnormality is identified. IMPRESSION: No acute abnormality identified. Reviewed, Interpreted and Dictated by Hao Coughlin III, MD Transcribed by Douglas Ortega Authenticated and [facility]
--- NOTE | 2022-01-24 12:29 | XR_ITS ---
FINAL REPORT CLINICAL HISTORY: fall, right shoulder pain FINDINGS: RIGHT SHOULDER: 3 views of the right shoulder were obtained. There is no acute fracture or dislocation. There is mild AC joint degenerative change. There is no soft tissue abnormality. IMPRESSION: No acute fracture Reviewed, Interpreted and Dictated by Hao Coughlin III, MD Transcribed by Douglas Ortega Authenticated and [facility]
--- NOTE | 2022-01-24 13:26 | PC.NURSE ---
Family at BS
--- NOTE | 2022-01-24 13:51 | PC.NURSE ---
ALO DAMON at BS to suture.
[2022-01-24 14:01] VITALS: BP 169/63; PULSE 67; O2SAT 96
--- NOTE | 2022-01-24 14:21 | PC.NURSE ---
TB immunization not administered. Pt advised nursing staff that she was UTD.
[2022-01-24 14:34] VITALS: BP 145/92; PULSE 71; O2SAT 97
--- NOTE | 2022-01-24 14:46 | PC.NURSE ---
knee immobilizer applied to RLE to prevent pt from bending her knee more than 30 degrees per ER MD request r/t sutures. Pt advised to use her walker at home for stabilization and safety. Pt verbalized understanding
[2022-01-24 14:52] VITALS: BP 132/74; PULSE 78; RESP 16; TEMP 36.6; O2SAT 98
== END 2022-01-24 14:53 | disposition home or self-care (01) ==
PROVIDERS: Emergency Provider Emergency Medicine; PCP Internal Medicine
DX: S81.011A Laceration without foreign body, right knee, initial encounter (principal); M25.511 Pain in right shoulder; M25.50 Pain in unspecified joint; R00.2 Palpitations; I11.0 Hypertensive heart disease with heart failure; I50.9 Heart failure, unspecified; I25.10 Atherosclerotic heart disease of native coronary artery without angina pectoris; I38 Endocarditis, valve unspecified; R01.1 Cardiac murmur, unspecified; K21.9 Gastro-esophageal reflux disease without esophagitis; G47.33 Obstructive sleep apnea (adult) (pediatric); J98.4 Other disorders of lung; J45.909 Unspecified asthma, uncomplicated; Z79.51 Long term (current) use of inhaled steroids; Z79.899 Other long term (current) drug therapy; Z91.040 Latex allergy status; Z95.0 Presence of cardiac pacemaker; W17.89XA Other fall from one level to another, initial encounter
CPT/HCPCS: 12002; 73030; 73560; 90471; 99285

== ENCOUNTER → 2022-02-05 14:39 | Outpatient (CLI) | payer MEDICARE, OTHER, SELFPAY ==
--- NOTE | 2022-02-05 | CA_ITS ---
FINAL REPORT TECHNIQUE: Color Doppler, duplex Doppler and compression sonography of the right lower extremity venous system was performed. CLINICAL HISTORY: Leg psin s/p fall FINDINGS: There is no evidence of deep venous thrombosis from the level of the groin to the calf. The veins are patent and compressible. IMPRESSION: No evidence of deep venous thrombosis right lower extremity. Reviewed, Interpreted and Dictated by Hao Coughlin III, MD Transcribed by Kristen Blanchard Authenticated and [facility]
== END ==
PROVIDERS: PCP Internal Medicine; Visit Provider Internal Medicine
DX: R60.0 Localized edema (principal); M79.604 Pain in right leg; B95.8 Unspecified staphylococcus as the cause of diseases classified elsewhere
CPT/HCPCS: 87070; 87077; 87186; 87205; 93971

== ENCOUNTER → 2022-02-05 16:35 | Outpatient (CLI) | payer MEDICARE, SELFPAY | PROVIDERS: PCP Internal Medicine; Visit Provider Internal Medicine | DX: B95.8 Unspecified staphylococcus as the cause of diseases classified elsewhere (principal) | CPT/HCPCS: 87070; 87205 ==

== ENCOUNTER → 2022-02-12 15:22 | Outpatient (CLI) | payer MEDICARE, OTHER, SELFPAY ==
[2022-02-12 15:29] LABS: Adenovirus F 40/41, stool Not Detected (NotDetected); Astrovirus Not Detected (NotDetected); Campylobacter Not Detected (NotDetected); Clostridium Difficile A/B, PCR Not Detected (NotDetected); Cryptosporidium Not Detected (NotDetected); Cyclospora Cayetanesis Not Detected (NotDetected); Entamoeba histolytica Not Detected (NotDetected); Enteroaggregative E coli Not Detected (NotDetected); Enteropathogenic E coli Not Detected (NotDetected); Enterotoxigenic E coli Not Detected (NotDetected); Giardia lamblia Not Detected (NotDetected); Norovirus Not Detected (NotDetected); Plesimonas Shigalloides, PCR Not Detected (NotDetected); Rotavirus A Not Detected (NotDetected); Salmonella, PCR Not Detected (NotDetected); Sapovirus Not Detected (NotDetected); Shiga-like toxin E coli Not Detected (NotDetected); Shigella Enterovasive E coli Not Detected (NotDetected); Vibrio Cholerae Not Detected (NotDetected); Vibrio, PCR Not Detected (NotDetected); Yersinia Entercolitica, PCR Not Detected (NotDetected)
== END ==
PROVIDERS: PCP Internal Medicine; Visit Provider Internal Medicine
DX: R19.7 Diarrhea, unspecified (principal)
CPT/HCPCS: 87506

== ENCOUNTER → 2022-02-18 15:34 | Outpatient (CLI) | payer MEDICARE, OTHER, SELFPAY ==
--- NOTE | 2022-02-18 15:41 | XR_ITS ---
FINAL REPORT CLINICAL HISTORY: RIGHT ANKLE SPRAIN, patient fell recently. FINDINGS: RIGHT ANKLE 3 views of the right ankle were obtained. There is no acute fracture or dislocation. The mortise is intact. Visualized joint spaces are normally aligned. There is prominent soft tissue swelling. IMPRESSION: Prominent soft tissue swelling without acute bony abnormality. Reviewed, Interpreted and Dictated by Juan Payan MD Transcribed by Trinidad Thomas Authenticated and [facility]
== END ==
PROVIDERS: PCP Internal Medicine; Visit Provider Internal Medicine
DX: M25.571 Pain in right ankle and joints of right foot (principal)
CPT/HCPCS: 73610

== ENCOUNTER 2022-03-15 15:40 | Outpatient (CLI) | payer MEDICARE, OTHER, SELFPAY ==
[2022-03-15 16:00] VITALS: BMI 38.0
[2022-03-15 16:08] LABS: Microscopic, Urine URINE MICROSCOPIC (MICROSCOPIC)
[2022-03-15 16:09] LABS: Appearance,Urine CLOUDY (Clear); Blood, Urine Negative (Negative); Color,Urine DK YELLOW (Yellow); Glucose,Urine (UA) Negative (Negative); Ketones,Urine TRACE (Negative); Leukocyte Esterase,Urine 2+ (Negative); Nitrate,Urine Negative (Negative); Protein,Urine TRACE (Negative); Specific Gravity, Urine 1.015 (1.005-1.030); Urobilinogen,Urine 0.2 EU/dl (0.2)
[2022-03-15 16:14] LABS: Bilirubin,Urine Negative (Negative)
[2022-03-15 16:20] LABS: Amorphous Sediment,Urine Trace /lpf; Bacteria,Urine 3+ /lpf; RBC,Urine Occasional #/hpf (0-3); Squamous Epithelial Cell,Urine Occasional #/hpf (0-5); WBC,Urine 20-50 #/hpf (0-3)
== END 2022-03-15 16:05 | disposition home or self-care (01) ==
LOC: INF 15:41
PROVIDERS: PCP Internal Medicine; Visit Provider Internal Medicine
DX: R05.9 Cough, unspecified (principal); R39.198 Other difficulties with micturition; B96.29 Other Escherichia coli [E. coli] as the cause of diseases classified elsewhere
CPT/HCPCS: 81001; 87086; 87088; 87186; G0463

== ENCOUNTER → 2022-03-20 11:35 | Outpatient (CLI) | payer MEDICARE, OTHER, SELFPAY ==
[2022-03-20 11:39] LABS: Adenovirus F 40/41, stool Not Detected (NotDetected); Astrovirus Not Detected (NotDetected); Campylobacter Not Detected (NotDetected); Clostridium Difficile A/B, PCR Not Detected (NotDetected); Cryptosporidium Not Detected (NotDetected); Cyclospora Cayetanesis Not Detected (NotDetected); Entamoeba histolytica Not Detected (NotDetected); Enteroaggregative E coli Not Detected (NotDetected); Enteropathogenic E coli Not Detected (NotDetected); Enterotoxigenic E coli Not Detected (NotDetected); Giardia lamblia Not Detected (NotDetected); Norovirus Not Detected (NotDetected); Plesimonas Shigalloides, PCR Not Detected (NotDetected); Rotavirus A Not Detected (NotDetected); Salmonella, PCR Not Detected (NotDetected); Sapovirus Not Detected (NotDetected); Shiga-like toxin E coli Not Detected (NotDetected); Shigella Enterovasive E coli Not Detected (NotDetected); Vibrio Cholerae Not Detected (NotDetected); Vibrio, PCR Not Detected (NotDetected); Yersinia Entercolitica, PCR Not Detected (NotDetected)
[2022-03-23 01:41] LABS: Calprotectin, Fecal 75 ug/g (0-120)
== END ==
PROVIDERS: PCP Internal Medicine; Visit Provider Nurse Practitioner Family
DX: R19.7 Diarrhea, unspecified (principal); R15.2 Fecal urgency; R14.0 Abdominal distension (gaseous)
CPT/HCPCS: 83993; 87506

== ENCOUNTER → 2022-06-24 15:24 | Outpatient (CLI) | payer MEDICARE, OTHER, SELFPAY ==
--- NOTE | 2022-06-24 15:32 | CA_ITS ---
FINAL REPORT TECHNIQUE: Ultrasound images of the deep venous system were obtained from the right groin to the calf veins. CLINICAL HISTORY: Patient states she fell 6 months and has had right leg pain since. HTN, obesity. RLE pain and edema that improves with rest and elevation FINDINGS: The deep venous system is normally compressible. Normal flow is identified. IMPRESSION: No evidence of right lower extremity DVT. Reviewed, Interpreted and Dictated by Juan Payan MD Transcribed by Douglas Ortega Authenticated and [facility]
== END ==
PROVIDERS: PCP Internal Medicine; Visit Provider Internal Medicine
DX: M79.604 Pain in right leg (principal); R60.0 Localized edema
CPT/HCPCS: 93971

== ENCOUNTER 2022-07-07 14:37 | Emergency (ER) | payer MEDICARE, OTHER, SELFPAY ==
[2022-07-07] VITALS (12 sets, daily range): BP systolic 118–166; BP diastolic 67–92; PULSE 78–114; RESP 18–20; TEMP 37.4; O2SAT 90–97; BMI 37.0
--- NOTE | 2022-07-07 15:07 | XR_ITS ---
PROCEDURE INFORMATION: Exam: XR Chest Exam date and time: 07/07/2022 3:31 PM Age: 81 years old Clinical indication: Fever and shortness of breath; Additional info: Fever, SOA TECHNIQUE: Imaging protocol: Radiologic exam of the chest. Views: 1 view. COMPARISON: CR XR CHEST PORTABLE 07/14/2021 11:37 AM FINDINGS: Tubes, catheters and devices: Pacer leads stable. Lungs: Unremarkable. No consolidation. Pleural spaces: Unremarkable. No pleural effusion. No pneumothorax. Heart/Mediastinum: Unremarkable. No cardiomegaly. Bones/joints: Unremarkable. IMPRESSION: No acute findings.
[2022-07-07 15:19] LABS: Chloride 102 mmol/L (98-107); Sodium 136 mmol/L (136-145)
[2022-07-07 15:22] LABS: Alanine Aminotransferase 28 U/L (12-78); Albumin Level 3.3 g/dl (3.5-5.0); Albumin/Globulin Ratio 1.3 (1.1-1.8); Alkaline Phosphatase 86 U/L (38-126); Aspartate Amino Transferase 33 U/L (14-36); Bilirubin,Total 0.6 mg/dl (0.2-1.3); Blood Urea Nitrogen 18 mg/dl (7-17); Carbon Dioxide 28 mmol/L (22.0-30.0); Creatinine Clearance Estimated 62 mL/min (50-200); Estimated Glomerular Filt Rate 60 ml/min (>60); GFR (African American) 73 ML/MIN (>60); Globulin 2.5 g/dL (1.3-3.2); Total Protein,Serum 5.8 g/dl (6.3-8.2)
[2022-07-07 15:23] LABS: Calcium 8.6 mg/dl (8.4-10.2); Glucose 103 mg/dl (74-100); Lactic Acid 1.3 mmol/L (0.7-2.1)
--- NOTE | 2022-07-07 15:24 | ECG_ITS ---
APPROVED REPORT Exam: Resting ECG HR:99 bpm ECG Measurements Heart Rate 99 AXES MN 157 P 68 QRSd 119 QRS 118 QT 356 T 44 QTc 413 Conclusion ELECTRONIC VENTRICULAR PACEMAKER ABNORMAL RHYTHM ECG UNCONFIRMED REPORT Electronically signed by : Power Jo MD 07/09/2022 20:19:42
[2022-07-07 15:26] LABS: Coronavirus 19, PCR Not Detected (NotDetected); Influenza A, PCR Not Detected (NotDetected); Influenza B, PCR Not Detected (NotDetected)
--- NOTE | 2022-07-07 16:37 | HMH.EDGENADL ---
Discharge Plan Disposition Chief Complaint: Shortness of Breath/Dyspnea Prescriptions Prescriptions: No Action diclofenac sodium 75 mg tablet,delayed release (DR/EC) 75 mg PO ONCE irbesartan 150 mg tablet 150 mg PO DAILY levalbuterol tartrate 45 mcg/actuation HFA aerosol inhaler 2 inh IH Q6H PRN (Reason: shortness of breath or wheezing) 90 Days Qty: 15 3RF fluticasone propion-salmeterol 250-50 mcg/dose blister with device 1 inh IH BID 90 Days Qty: 60 3RF fluticasone propionate 50 mcg/actuation spray,suspension 1 spray NS BID 90 Days Qty: 15.8 3RF Rx Instructions: administer into each nostril levalbuterol tartrate [Xopenex HFA] 45 mcg/actuation HFA aerosol inhaler 2 inh inhalation Q6H PRN (Reason: shortness of breath or wheezing) 90 Days Qty: 15 3RF carvedilol 25 mg tablet 25 mg PO BID 90 Days Qty: 360 Label Comments: cephalexin 500 MG capsule 500 mg PO Q6H 7 Days Qty: 28 0RF aspirin 81 MG tablet,delayed release (DR/EC) 81 mg PO DAILY potassium chloride 20 MEQ tablet 20 meq PO TID levalbuterol HCl 1.25 MG/3 ML solution for nebulization 1.25 mg IH Q6H ondansetron 4 MG tablet,disintegrating 4 mg PO BIDP PRN (Reason: Nausea And Vomiting) Qty: 10 0RF amiodarone 400 MG tablet 100 mg PO DAILY diazepam 5 MG tablet 5 mg PO BIDP PRN (Reason: Anxiety) amlodipine 2.5 MG tablet 2.5 mg PO DAILY omeprazole 20 MG capsule,delayed release(DR/EC) 20 mg PO DAILY hydrocodone-acetaminophen 1 TAB tablet 1 tab PO Q6HP PRN (Reason: Moderate Pain) Qty: 10 0RF Referrals Follow up/Referrals: Alfred Cantu MD [Primary Care Provider] - See instructions Discharge ED Provider: Andrea Noriega General Adult HPI General Chief complaint: Shortness of Breath/Dyspnea Stated complaint: SOA, Fever, blurred vision Time Seen by Provider: 07/07/22 16:27 History of Present Illness HPI narrative: She presents with 1 week history of cough and shortness of air. She has had some chest discomfort along with it. Symptoms are described as moderate and without exacerbating or alleviating factors. She has had fever at home according to . Patient also voices concern that she may have a urinary tract infection. Related Data Home Medications Medication Instructions Recorded Confirmed carvedilol 25 mg tablet 25 mg PO BID High blood pressure 09/09/17 04/12/22 90 days #360 tabs aspirin 81 mg tablet,delayed 81 mg PO DAILY Blood thinner 08/26/19 04/12/22 release levalbuterol HCl 1.25 mg/3 mL 1.25 mg inhalation Q6H Asthma 08/26/19 04/12/22 solution for nebulization potassium chloride 20 mEq 20 meq PO TID Supplement 08/26/19 04/12/22 tablet,extended release(part/cryst) amiodarone 400 mg tablet 100 mg PO DAILY heart rate 03/06/21 04/12/22 diazepam 5 mg tablet 5 mg PO BIDP PRN Anxiety 03/06/21 04/12/22 amlodipine 2.5 mg tablet 2.5 mg PO DAILY High blood pressure 03/07/21 04/12/22 omeprazole 20 mg capsule,delayed 20 mg PO DAILY ACID REFLUX 03/07/21 04/12/22 release diclofenac sodium 75 mg 75 mg PO ONCE 01/09/22 04/12/22 tablet,delayed release irbesartan 150 mg tablet 150 mg PO DAILY 01/09/22 04/12/22 Previous Rx's Medication Instructions Recorded ondansetron 4 mg disintegrating 4 mg PO BIDP PRN Nausea And 03/02/21 tablet Vomiting #10 tabs hydrocodone 5 mg-acetaminophen 325 1 tab PO Q6HP PRN Moderate Pain 07/14/21 mg tablet #10 tabs levalbuterol tartrate 45 2 inh inhalation Q6H PRN shortness 01/09/22 mcg/actuation aerosol inhaler of breath or wheezing 90 days #15 grams cephalexin 500 mg capsule 500 mg PO Q6H 7 days #28 caps 01/24/22 fluticasone 250 mcg-salmeterol 50 1 inh inhalation BID 90 days #60 ea 04/12/22 mcg/dose blistr powdr for inhalation fluticasone propionate 50 1 spray intranasal BID 90 days 04/12/22 mcg/actuation nasal #15.8 mL spray,suspension levalbuterol tartrate 45 2 inh inhalation Q6H PRN shortness
[2022-07-07 16:42] LABS: Basophils # 0.1 K/mm3 (0-0.2); Basophils % 0.3 % (0.1-2.0); Eosinophils # 0.2 K/mm3 (0.0-0.4); Eosinophils % 1.5 % (0.1-12.0); Hemoglobin 11.5 g/dL (12.2-16.2); Lymphocytes # 0.9 K/mm3 (0.7-4.5); Lymphocytes % 5.5 % (10-50); Mean Corpuscular Hemoglobin 24.7 pg (27.0-31.2); Mean Corpuscular Volume 74.7 fl (81-99); Mean Platelet Volume 9.9 fl (7.4-10.4); Monocytes # 0.7 K/mm3 (0.1-1.0); Monocytes % 4.4 % (1.7-9.3); Neutrophils # 13.8 K/mm3 (1.8-7.8); Neutrophils % 88.4 % (37.0-80.0); Platelet Count 196 K/mm3 (142-424); Red Blood Count 4.68 M/mm3 (4.20-5.40); Red Cell Distribution Width 17.8 % (11.5-17.5); White Blood Count 15.6 K/mm3 (4.8-10.8)
[2022-07-07 16:48] LABS: MANUAL DIFFERENTIAL MANUAL DIFFERENTIAL (MANUAL DIFF)
[2022-07-07 17:09] LABS: NT Pro Brain Natriuretic Pep. 456 pg/mL (0-450)
[2022-07-07 17:13] LABS: Troponin I < 0.01 ng/ml (0.00-0.034)
[2022-07-07 17:51] LABS: Lymphocytes % 7 % (10-50); Monocytes % 5 % (2-9); Neutrophils % 82 % (42-76); Platelet Estimate Normal; RBC Morphology Normal; Total Cells Counted 100
--- NOTE | 2022-07-07 18:01 | PC.NURSE ---
pt up to restroom
--- NOTE | 2022-07-07 18:15 | PC.NURSE ---
Pt up to restroom without oxygen, when she came back to room after exertion she was 85% on room air. Oxygen reapplied to pt and pt nurse made aware.
[2022-07-07 18:29] LABS: Microscopic, Urine URINE MICROSCOPIC (MICROSCOPIC)
[2022-07-07 18:48] LABS: Appearance,Urine CLEAR (Clear); Bilirubin,Urine Negative (Negative); Blood, Urine Negative (Negative); Color,Urine YELLOW (Yellow); Glucose,Urine (UA) Negative (Negative); Ketones,Urine Negative (Negative); Leukocyte Esterase,Urine 1+ (Negative); Nitrate,Urine POSITIVE (Negative); Protein,Urine 1+ (Negative); Specific Gravity, Urine 1.015 (1.005-1.030)
[2022-07-07 19:09] LABS: Bacteria,Urine 4+ /lpf; WBC,Urine 20-50 #/hpf (0-3)
[2022-07-07 19:50] LABS: D-Dimer 0.82 ug/mL (0.0-0.5)
--- NOTE | 2022-07-07 20:00 | CT_ITS ---
PROCEDURE INFORMATION: Exam: CTA Chest With Contrast Exam date and time: 07/07/2022 8:15 PM Age: 81 years old Clinical indication: Shortness of breath; Prior surgery; Surgery type: Pacemaker; Additional info: SOA TECHNIQUE: Imaging protocol: Computed tomographic angiography of the chest with contrast. 3D rendering (Not supervised by radiologist): MIP and/or 3D reconstructed images were created by the technologist. Radiation optimization: All CT scans at this facility use at least one of these dose optimization techniques: automated exposure control; mA and/or kV adjustment per patient size (includes targeted exams where dose is matched to clinical indication); or iterative reconstruction. Contrast material: ISO 370; Contrast volume: 75 ml; Contrast route: INTRAVENOUS (IV); COMPARISON: [facility] CTA-CHEST 05/19/2017 12:40 PM FINDINGS: Limitations: Respiratory motion artifact severely degrades images, limiting sensitivity of exam. Tubes, catheters and devices: AICD in place with leads that appear to be grossly in appropriate position. Left atrial appendage occlusive device in place. Pulmonary arteries: No evidence of large central pulmonary emboli. Respiratory motion artifact limits evaluation for definitive exclusion of smaller pulmonary emboli (subsegmental). Aorta: No aortic dissection or aneurysm. Ductus diverticulum incidentally noted. Lungs: Mosaic attenuation throughout the pulmonary parenchyma, nonspecific. No acute airspace consolidation. No appreciable pulmonary edema. Bibasal subsegmental atelectasis/scarring. Noncalcified 5 mm subpleural nodule in the right upper lobe has been stable since 2017 exam is most likely benign. No suspicious pulmonary nodules. Accessory azygos fissure incidentally noted. Pleural spaces: No pneumothorax. No pleural effusion. Heart: Mild global cardiomegaly. No significant pericardial effusion. Lymph nodes: No enlarged lymph nodes by CT criteria. Intraperitoneal space: No emergent findings or suspicious mass lesions in the visualized upper abdomen. Bones/joints: No acute osseous abnormality. Soft tissues: Unremarkable. IMPRESSION: 1. No acute findings in the chest. No evidence of large central pulmonary emboli. Technically inadequate study for definitive exclusion of smaller pulmonary emboli (subsegmental). 2. Mosaic attenuation throughout the pulmonary parenchyma, nonspecific. Findings can be seen with small airways or microvascular disease. 3. Mild global cardiomegaly. 4. Additional non-acute ancillary findings are detailed above.
[2022-07-07 20:15] LABS: Troponin I < 0.01 ng/ml (0.00-0.034)
--- NOTE | 2022-07-07 20:17 | PC.NURSE ---
shift change report given to aryarn
== END 2022-07-07 22:00 | disposition home or self-care (01) ==
PROVIDERS: Emergency Provider Emergency Medicine; PCP Internal Medicine
DX: R07.9 Chest pain, unspecified (principal); Z20.822 Contact with and (suspected) exposure to COVID-19; J30.9 Allergic rhinitis, unspecified; J45.30 Mild persistent asthma, uncomplicated; F41.9 Anxiety disorder, unspecified; Z79.51 Long term (current) use of inhaled steroids; Z79.82 Long term (current) use of aspirin; Z79.899 Other long term (current) drug therapy; Z88.0 Allergy status to penicillin; Z88.1 Allergy status to other antibiotic agents; Z88.2 Allergy status to sulfonamides; Z88.3 Allergy status to other anti-infective agents; Z88.8 Allergy status to other drugs, medicaments and biological substances; Z91.040 Latex allergy status; Z95.0 Presence of cardiac pacemaker
CPT/HCPCS: 71045; 71275; 80053; 81001; 83605; 83880; 84484; 85007; 85025; 85378; 87040; 87086; 87088; 87186; 93005; 99285; C9803; Q9967; U0003; U0005

== ENCOUNTER 2022-08-16 14:00 | Outpatient (RCR) | payer MEDICARE, OTHER, SELFPAY | END 2022-08-16 14:05 | disposition home or self-care (01) | LOC: PT 14:00 | PROVIDERS: PCP Internal Medicine; Visit Provider Internal Medicine | DX: R60.0 Localized edema (principal); I87.2 Venous insufficiency (chronic) (peripheral) | CPT/HCPCS: 97140; 97162 ==

== ENCOUNTER → 2022-09-25 15:25 | Outpatient (CLI) | payer MEDICARE, OTHER, SELFPAY ==
--- NOTE | 2022-09-25 15:31 | XR_ITS ---
FINAL REPORT CLINICAL HISTORY: BILATERAL HIP PAIN with the weather change x 2 years..no surgeries FINDINGS: AP and frog leg views of the left hip were obtained. There is no prior exam for comparison. There is no acute fracture or dislocation. There is mild degenerative disease. Soft tissues are within normal limits. IMPRESSION: No acute osseous abnormality of the left hip. If pain persists, MR is recommended. Reviewed, Interpreted and Dictated by Cesilia Montalvo MD Transcribed by Kristen Blanchard Authenticated and [facility]
--- NOTE | 2022-09-25 15:31 | XR_ITS ---
FINAL REPORT CLINICAL HISTORY: BILATERAL HIP PAIN with the weather change x 2 years...no surgeries FINDINGS: AP and frog leg views of the right hip were obtained. There is no prior exam for comparison. There is no acute fracture or dislocation. There is mild degenerative disease. Soft tissues are within normal limits. IMPRESSION: No acute osseous abnormality of the right hip. If pain persists, MR is recommended. Reviewed, Interpreted and Dictated by Cesilia Montalvo MD Transcribed by Kristen Blanchard Authenticated and [facility]
== END ==
PROVIDERS: PCP Internal Medicine; Visit Provider Internal Medicine
DX: M25.551 Pain in right hip (principal); M25.552 Pain in left hip
CPT/HCPCS: 73502

== ENCOUNTER 2023-01-14 15:00 | Outpatient (RCR) | payer MEDICARE, OTHER, SELFPAY ==
--- NOTE | 2022-11-13 14:11 | HMH.PTOPEV ---
PT Outpatient Evaluation Rehab PT Outpatient Evaluation Start: 11/13/22 13:49 Freq: Status: Active Protocol: Document 11/13/22 13:49 ANA (Rec: 11/13/22 14:10 ANA [id number]) E-signed By Mendel Dove, PT Outpatient Therapy Subjective History Subjective History Patient is an 82 year old female presenting to outpatient PT with reports of B hip pain R>L of insidious onset starting approx 4 years ago. Patient has previously received epidurals, cortisone injecitons and PT with minimal improvment noted. Signs and symptoms consistent with greater trochanteric bursitis. Comorbidities include hx of pacemaker, defibrilator and watchman. HTN as well. Chief Complaint Pain,Stiff,Weakness Symptom Type Ache Symptoms Relieved By Rest/Positioning,Heat, Prescription Meds Symptoms Aggravated By Standing,Physical Activity, Walking Prior Functional Limitations None Current Functional Limitations Housework,Standing,Walking, Stairs,Balance Symptom Description Constant but Variable Level of pain today (0-10) 3 Pain scale - at its best (0-10) 3 Pain scale - at its worst (0-10) 8 Hip/Knee Eval Gait Observation General Gait Pattern Observation Wide Based Gait Palpation Tenderness right Knee Palpation Overall Comment B greater troc 3/4 Hip Palpation Findings Tenderness MMT bilateral Hip Flexion Strength Grade 4 Good Hip Abduction Strength Grade 4 Good Hip Adduction Strength Grade 4 Good Hip Extension Strength Grade 4 Good Hip External Rotation Strength Grade 4 Good Hip Internal Rotation Strength Grade 4 Good Knee Extension Strength Grade 4 Good Knee Flexion Strength Grade 4 Good ROM left Hip Flexion w/Knee Flexed Passive Range 39 of Motion (degrees) Hip Flexion w/Knee Extended Passive 40 Range of Motion (degrees) Hip Abduction Passive Range of Motion ( 37 degrees) Hip Extension Passive Range of Motion ( 4 degrees) Hip External Rotation Passive Range of 34 Motion (degrees) Hip Internal Rotation Passive Range of 6 Motion (degrees) Hip ROM Limitations Soft Tissue Tightness right Hip Flexion w/Knee Flexed Passive Range 82 of Motion (degrees) Hip Fle
--- NOTE | 2022-12-17 17:39 | HMH.RHREAS ---
Rehab Reassessment Rehab OP Re-assessment Start: 12/17/22 17:29 Freq: Status: Active Protocol: Document 12/17/22 17:29 ANA (Rec: 12/17/22 17:36 ANA [id number]) E-signed By Mendel Dove, PT Rehab Re-assessment Subjective Subjective Patient reports 20% improvement since start of care. Objective Objective Notes BLE MMT: 4-/5 grossly ROM: WFL Pain: 6/10 today; 8/10 at worst over past week Neuro: WNL Assessment Progress Assessment Slower Than Expected Assessment Notes Patient has been seen for 7 treatment visits to date. Compliance with HEP is questionable. Patient has recently received injections in B piriformis mm that has provided some momantary relief . Patient would benefit from continuing with skilled PT services to address functional limitations with standing/ ambulatory activities. Patient goals met None Goals Not Met All Revised Goals NA Plan Plan Continue with current POC. Frequency of Therapy 14 Duration of therapy 1 PHYSICIAN CERTIFICATION: I certify the specified therapy services for Kathy Jimenez are required, authorized, and reviewed every 30 days.
== END 2023-01-14 15:05 | disposition home or self-care (01) ==
LOC: PT 15:00
PROVIDERS: PCP Internal Medicine; Visit Provider Orthopaedic Surgery
DX: R26.89 Other abnormalities of gait and mobility (principal); M70.61 Trochanteric bursitis, right hip; M70.62 Trochanteric bursitis, left hip
CPT/HCPCS: 97110; 97112; 97163; 97164; 97530; 97760

== ENCOUNTER → 2023-03-18 12:46 | Outpatient (CLI) | payer MEDICARE, OTHER, SELFPAY | PROVIDERS: PCP Internal Medicine; Visit Provider Internal Medicine | DX: N39.0 Urinary tract infection, site not specified (principal); B96.1 Klebsiella pneumoniae [K. pneumoniae] as the cause of diseases classified elsewhere | CPT/HCPCS: 87086; 87088; 87186 ==

== ENCOUNTER 2023-06-23 08:22 | Emergency (ER) | payer MEDICARE, OTHER, SELFPAY ==
[2023-06-23 08:24] VITALS: BP 171/97; PULSE 75; RESP 18; TEMP 36.5; O2SAT 96; BMI 35.2
--- NOTE | 2023-06-23 08:57 | XR_ITS ---
FINAL REPORT CLINICAL HISTORY: L knee pain and lac after fall. r/o joint gas FINDINGS: LEFT KNEE 3 views of the left knee were obtained. There is no acute fracture or dislocation. Visualized joint spaces are normally aligned. No gas is seen in the joint space. There is mild medial compartment joint space narrowing. Soft tissues are unremarkable. IMPRESSION: No acute bony abnormality. Reviewed, Interpreted and Dictated by Juan Payan MD Transcribed by Trinidad Thomas Authenticated and [facility]
--- NOTE | 2023-06-23 08:57 | XR_ITS ---
FINAL REPORT CLINICAL HISTORY: proximal tib pain after fall FINDINGS: LEFT TIBIA AND FIBULA There is no acute fracture or dislocation. There is overlying density projecting superior to the proximal fibula likely due to artifact. The joint spaces are intact. There is no soft tissue abnormality. IMPRESSION: No acute fracture Reviewed, Interpreted and Dictated by Juan Payan MD Transcribed by Trinidad Thomas Authenticated and [facility]
--- NOTE | 2023-06-23 08:57 | XR_ITS ---
FINAL REPORT CLINICAL HISTORY: left knee pain FINDINGS: LEFT FEMUR AP and lateral views of the left femur were obtained. Exam is underpenetrated which limits evaluation. There is no acute fracture or dislocation. Visualized joint spaces are normally aligned. Soft tissues are unremarkable. IMPRESSION: No acute bony abnormality. Reviewed, Interpreted and Dictated by Juan Payan MD Transcribed by Trinidad Thomas Authenticated and [facility]
[2023-06-23 09:01] VITALS: BP 177/98; PULSE 77; O2SAT 97
--- NOTE | 2023-06-23 09:13 | HMH.EDGENADL ---
Discharge Plan Disposition Patient Disposition: Home, Self-Care Chief Complaint: Fall Prescriptions Prescriptions: No Action diclofenac sodium 75 mg tablet,delayed release (DR/EC) 75 mg PO ONCE irbesartan 150 mg tablet 150 mg PO DAILY levalbuterol tartrate 45 mcg/actuation HFA aerosol inhaler 2 inh IH Q6H PRN (Reason: shortness of breath or wheezing) 90 Days Qty: 15 3RF fluticasone propion-salmeterol 250-50 mcg/dose blister with device 1 inh IH BID 90 Days Qty: 60 3RF fluticasone propionate 50 mcg/actuation spray,suspension 1 spray NS BID 90 Days Qty: 15.8 3RF Rx Instructions: administer into each nostril levalbuterol tartrate [Xopenex HFA] 45 mcg/actuation HFA aerosol inhaler 2 inh inhalation Q6H PRN (Reason: shortness of breath or wheezing) 90 Days Qty: 15 3RF carvedilol 25 mg tablet 25 mg PO BID 90 Days Qty: 360 Patient Comments: aspirin 81 MG tablet,delayed release (DR/EC) 81 mg PO DAILY potassium chloride 20 MEQ tablet 20 meq PO TID levalbuterol HCl 1.25 MG/3 ML solution for nebulization 1.25 mg IH Q6H ondansetron 4 MG tablet,disintegrating 4 mg PO BIDP PRN (Reason: Nausea And Vomiting) Qty: 10 0RF amiodarone 400 MG tablet 100 mg PO DAILY diazepam 5 MG tablet 5 mg PO BIDP PRN (Reason: Anxiety) amlodipine 2.5 MG tablet 2.5 mg PO DAILY omeprazole 20 MG capsule,delayed release(DR/EC) 20 mg PO DAILY hydrocodone-acetaminophen 1 TAB tablet 1 tab PO Q6HP PRN (Reason: Moderate Pain) Qty: 10 0RF Referrals Follow up/Referrals: Alfred Cantu MD [Primary Care Provider] - See instructions Activity Restrictions/Add. Instructions Additional Instructions/Restrictions: Call your family doctor to establish care for this visit to the emergency department and schedule follow-up within 48 hours to ensure improvement. If you have any worsening of your condition or any other concerning signs or symptoms, return to the emergency department or your primary care doctor for further evaluation. Stitches can be removed in 10 to 14 days by primary care doctor or at home, if comfortable. If you have any signs or symptoms of infection, return to the emergency department promptly. Clinical Impressions Clinical Impression: Fall Laceration of knee Qualifiers: Encounter type: initial encounter Laterality: left Qualified Code(s): S81.012A - Laceration without foreign body, left knee, initial encounter Discharge ED Provider: Andrea Cabral General Adult HPI General Chief complaint: Fall Stated complaint: [email or web address], pain in Lt knee Time Seen by Provider: 06/23/23 08:35 Mode of Arrival: Ambulatory Source of Information: Patient Limitations: No Limitations Description of Symptoms (Recalled from ER Triage Doc. by RN): c/o right knee skin laceration after falling out of bed, denies hitting her head or LOC, no other injuries noted at this time. History of Present Illness HPI narrative: 82-year-old female history of hypertension, hyperlipidemia, A-fib status post watchman's procedure not currently on anticoagulation presenting with left knee injury. Patient states that she stepped out of bed today, tripped, landed on her left knee. Busted open. Came to the emergency department because large laceration overlying the left knee. Denies any other trauma. Not currently in pain and able to bear weight without issue. Related Data Home Medications Medication Instructions Recorded Confirmed carvedilol 25 mg tablet 25 mg PO BID High blood pressure 09/09/17 03/21/23 90 days #360 tabs aspirin 81 mg tablet,delayed 81 mg PO DAILY Blood thinner 08/26/19 03/21/23 release levalbuterol HCl 1.25 mg/3 mL 1.25 mg inhalation Q6H Asthma 08/26/19 03/21/23 solution for nebulization potassium chloride 20 mEq 20 meq PO TID Supplement 08/26/19 03/21/23 tablet,extended release(part/cryst) amiodarone 400 mg tablet 100 mg PO DAILY heart ra
[2023-06-23 09:31] VITALS: BP 199/96; PULSE 74; O2SAT 97
[2023-06-23 10:01] VITALS: BP 230/128; PULSE 69; O2SAT 94
[2023-06-23 12:17] VITALS: BP 199/96; PULSE 69; RESP 18; TEMP 36.5; O2SAT 94
== END 2023-06-23 12:18 | disposition home or self-care (01) ==
PROVIDERS: Emergency Provider Emergency Medicine; PCP Internal Medicine
DX: S81.012A Laceration without foreign body, left knee, initial encounter (principal); I10 Essential (primary) hypertension; E78.5 Hyperlipidemia, unspecified; I48.0 Paroxysmal atrial fibrillation; J45.909 Unspecified asthma, uncomplicated; Z95.818 Presence of other cardiac implants and grafts; W06.XXXA Fall from bed, initial encounter
CPT/HCPCS: 12002; 73552; 73562; 73590; 99283

== ENCOUNTER → 2023-06-30 13:24 | Outpatient (CLI) | payer MEDICARE, OTHER, SELFPAY ==
--- NOTE | 2023-06-30 13:36 | CT_ITS ---
FINAL REPORT TECHNIQUE: Axial imaging of the lumbar spine was obtained without contrast. Reformatted images were also obtained and reviewed.This study was performed with techniques to keep radiation doses as low as reasonably achievable, (ALARA). Individualized dose reduction techniques using automated exposure control or adjustment of mA and/or kV according to the patient's size were employed. CLINICAL HISTORY: RADICULOPATHY LUMBAR REGION FINDINGS: There is no acute fracture. The vertebra are normal height. There is mild anterolisthesis of L5 on S1. Leftward curvature is noted. There are moderate to severe degenerative changes. Multilevel vacuum disc phenomenon is seen. Facets are properly aligned. Prevertebral soft tissues unremarkable. L1-2: Annular disc bulge with facet arthropathy and osteophytes. There is mild right neuroforaminal narrowing. L2-3: Annular disc bulge with facet arthropathy and osteophytes. There is mild left neuroforaminal narrowing. L3-4: Annular disc bulge with facet arthropathy and osteophytes. There is mild right neuroforaminal narrowing. L4-5: Annular disc bulge with facet arthropathy and osteophytes. There is mild right and moderate left neuroforaminal narrowing. L5-S1: Annular disc bulge with facet arthropathy and osteophytes. There is mild right and severe left neuroforaminal narrowing. IMPRESSION: Moderate to severe degenerative change without acute bony abnormality. Reviewed, Interpreted and Dictated by Hao Coughlin III, MD Transcribed by Trinidad Thomas Authenticated and [facility]
== END ==
PROVIDERS: PCP Internal Medicine; Visit Provider Anesthesiology
DX: M54.17 Radiculopathy, lumbosacral region (principal)
CPT/HCPCS: 72131

== ENCOUNTER 2023-09-04 21:13 | Emergency (ER) | payer MEDICARE, OTHER, SELFPAY ==
[2023-09-04 21:14] VITALS: BP 205/100; PULSE 74; RESP 16; TEMP 36.8; O2SAT 94; BMI 36.3
--- NOTE | 2023-09-04 21:32 | XR_ITS ---
PROCEDURE INFORMATION: Exam: XR Left Knee Exam date and time: 09/04/2023 9:51 PM Age: 82 years old Clinical indication: Pain; Knee; Left; Additional info: Fall, large knee lac, R/O traumatic arthrotomy TECHNIQUE: Imaging protocol: Radiologic exam of the left knee. Views: 3 views. COMPARISON: CT KNEE LT WO CON 09/04/2023 9:47 PM FINDINGS: Bones/joints: There is tricompartmental osteoarthritis of the knee with loss of joint space, subchondral sclerosis, and productive changes. The osseous structures are intact, with no signs of acute fracture, dislocation, or malalignment. There is no evidence of abnormal bone density or destructive lesions. Soft tissues: Moderate prepatellar soft tissue swelling. The soft tissues appear within normal limits. IMPRESSION: At the time of imaging, the study shows no acute osseous abnormalities but does reveal signs of tricompartmental osteoarthritis.
--- NOTE | 2023-09-04 21:32 | XR_ITS ---
PROCEDURE INFORMATION: Exam: XR Chest Exam date and time: 09/04/2023 9:45 PM Age: 82 years old Clinical indication: Injury or trauma; Fall; Additional info: Fall, pain TECHNIQUE: Imaging protocol: Radiologic exam of the chest. Views: 1 view. COMPARISON: CT ANGIO CHEST PE PROTOCOL 07/07/2022 8:15 PM FINDINGS: Tubes, catheters and devices: There is a left atrial occlusion device. There is a left chest implanted cardiac device. Lungs: Calcified granuloma in the right lower lobe. Pleural spaces: No large effusion or pneumothorax. Heart/Mediastinum: Stable cardiac and mediastinal contours. Vasculature: There are calcifications of the aortic arch. Bones/joints: No evidence of acute osseous abnormalities within the visualized portions of the thoracic spine and ribs. Osseous structures appear appropriate for patient age. Intraperitoneal space: There are right upper quadrant surgical clips suggesting prior cholecystectomy. IMPRESSION: No dense parenchymal consolidation, pleural effusion, or pneumothorax.
--- NOTE | 2023-09-04 21:32 | XR_ITS ---
PROCEDURE INFORMATION: Exam: XR Left Femur Exam date and time: 09/04/2023 9:49 PM Age: 82 years old Clinical indication: Pain; Thigh; Left; Additional info: Fall, large knee lac, R/O traumatic arthrotomy TECHNIQUE: Imaging protocol: Radiologic exam of the left femur. Views: 2 views. COMPARISON: CR XR FEMUR LT 2V 06/23/2023 9:06 AM FINDINGS: Bones/joints: The osseous structures are intact, with no signs of acute fracture, dislocation, or malalignment. Age-related degenerative changes are observed. There is no evidence of abnormal bone density or destructive lesions. Soft tissues: The soft tissues appear within normal limits. Vasculature: Scattered atherosclerotic disease of the arterial vasculature. IMPRESSION: At the time of imaging, the study shows no acute osseous abnormalities but does reveal signs of age-related degenerative changes.
--- NOTE | 2023-09-04 21:32 | XR_ITS ---
PROCEDURE INFORMATION: Exam: XR Left Tibia and Fibula Exam date and time: 09/04/2023 9:53 PM Age: 82 years old Clinical indication: Pain; Lower leg; Left; Additional info: Fall, large knee lac, R/O traumatic arthrotomy TECHNIQUE: Imaging protocol: Radiologic exam of the left tibia and fibula. Views: 2 views. COMPARISON: [facility] MRI-LOW EXT ANY JOINT W/O-LT 08/07/2017 1:11 PM FINDINGS: Bones/joints: The osseous structures appear intact with no evidence of acute fracture, dislocation, or malalignment. Joint spaces are minimally narrowed. No abnormal bone density or destructive lesions are noted. Soft tissues: Soft tissue swelling about the knee. Soft tissues appear unremarkable. IMPRESSION: At the time of imaging, there is no evidence for acute osseous abnormalities. Clinical correlation is advised for comprehensive assessment.
--- NOTE | 2023-09-04 21:32 | XR_ITS ---
PROCEDURE INFORMATION: Exam: XR Pelvis Exam date and time: 09/04/2023 9:47 PM Age: 82 years old Clinical indication: Pelvic pain; Additional info: Fall, pain TECHNIQUE: Imaging protocol: Radiologic exam of the pelvis. Views: 1 or 2 view. COMPARISON: CR XR FEMUR LT 2V 06/23/2023 9:06 AM FINDINGS: Bones/joints: There is diffuse osseous demineralization. There is mild osteoarthritis of the hips with joint space narrowing, productive changes, and subchondral sclerosis. There are partially visualized degenerative changes of the sacroiliac joints and lumbar spine as well as some degenerative disease of the pubic symphysis. The osseous structures are intact, with no signs of acute fracture, dislocation, or malalignment. Age-related degenerative changes are observed. There is no evidence of abnormal bone density or destructive lesions. Soft tissues: The soft tissues appear within normal limits. IMPRESSION: At the time of imaging, the study shows no acute osseous abnormalities but does reveal signs of age-related degenerative changes.
--- NOTE | 2023-09-04 21:32 | CT_ITS ---
PROCEDURE INFORMATION: Exam: CT Cervical Spine Without Contrast Exam date and time: 09/04/2023 9:44 PM Age: 82 years old Clinical indication: Neck pain; Additional info: Fall >65, head injury TECHNIQUE: Imaging protocol: Computed tomography of the cervical spine without contrast. Radiation optimization: All CT scans at this facility use at least one of these dose optimization techniques: automated exposure control; mA and/or kV adjustment per patient size (includes targeted exams where dose is matched to clinical indication); or iterative reconstruction. COMPARISON: 1. CT CERVICAL SPINE WO CON 03/02/2021 2:[address] ANGIO NECK 03/06/2021 8:[address] HEAD/BRAIN WO CON 09/04/2023 9:42 PM FINDINGS: Bones/joints: There is diffuse osseous demineralization. The cervical spine shows relatively preserved alignment of the vertebral bodies with no evidence of acute fractures or dislocations. However, age-related degenerative changes are observed, including mild disc space narrowing and osteophyte formation at multiple levels. 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 Dental: There is dental amalgam which causes streak artifact and mildly limits evaluation of the oral cavity. Lungs: Lung apices are normal. Vasculature: There are atherosclerotic calcifications of the carotid bulbs bilaterally. Soft tissues: Unremarkable. IMPRESSION: Multilevel degenerative change without acute injury identified.
--- NOTE | 2023-09-04 21:32 | CT_ITS ---
PROCEDURE INFORMATION: Exam: CT Head Without Contrast Exam date and time: 09/04/2023 9:42 PM Age: 82 years old Clinical indication: Injury or trauma; Fall; Additional info: Fall >65, head injury TECHNIQUE: Imaging protocol: Computed tomography of the head without contrast. Radiation optimization: All CT scans at this facility use at least one of these dose optimization techniques: automated exposure control; mA and/or kV adjustment per patient size (includes targeted exams where dose is matched to clinical indication); or iterative reconstruction. COMPARISON: 1. CT ANGIO HEAD 03/06/2021 8:[address] HEAD/BRAIN WO CON 03/06/2021 8:[address] HEAD/BRAIN WO CON 03/02/2021 2:30 PM FINDINGS: Brain: The brain parenchyma appears unremarkable, with no signs of acute intracranial hemorrhage or significant mass effect. There is hypodensity in the subcortical and periventricular white matter which is technically nonspecific but most often related to chronic microvascular disease. Cerebral ventricles: Mild ventricular enlargement consistent with age-related cerebral atrophy is noted. Paranasal sinuses: Paranasal sinuses show age-appropriate mucosal thickening. Mastoid air cells: Visualized mastoid air cells are well aerated. Dental: There is dental amalgam which causes streak artifact and mildly limits evaluation of the oral cavity. Bones/joints: There are no skull fractures or bony lesions. Soft tissues: Unremarkable. IMPRESSION: Presumably age-related and chronic changes without acute intracranial abnormality.
--- NOTE | 2023-09-04 21:32 | CT_ITS ---
PROCEDURE INFORMATION: Exam: CT Left Lower Extremity Without Contrast, Knee Exam date and time: 09/04/2023 9:47 PM Age: 82 years old Clinical indication: Pain; Knee; Left; Additional info: Fall, large knee lac, R/O traumatic arthrotomy TECHNIQUE: Imaging protocol: CT of the left lower extremity without contrast was performed. Exam focused on the knee. Radiation optimization: All CT scans at this facility use at least one of these dose optimization techniques: automated exposure control; mA and/or kV adjustment per patient size (includes targeted exams where dose is matched to clinical indication); or iterative reconstruction. COMPARISON: 1. [facility] MRI-LOW EXT ANY JOINT W/O-LT 08/07/2017 1:11 PM 2. CR XR KNEE LT 3V 06/23/2023 9:06 AM 3. CR XR KNEE LT 3V 03/06/2021 8:46 AM FINDINGS: Bones/joints: No intra-articular gas is seen. Small osseous fragment along the inferolateral portion of the lower patellar pole may reflect a small avulsion injury. There is mild tricompartmental osteoarthritis. Soft tissues: Prepatellar soft tissue swelling with skin discontinuity. IMPRESSION: Soft tissue laceration over the patella with swelling. No intra-articular gas to suggest violation of the joint capsule. Possible avulsion injury along the inferolateral aspect of the patella.
--- NOTE | 2023-09-04 21:45 | ED_ITS ---
Discharge Plan Disposition Patient Disposition: Home, Self-Care Condition: Good Prescriptions Prescriptions: New cephalexin 500 mg capsule 500 mg PO Q8H 7 Days Qty: 21 0RF No Action diclofenac sodium 75 mg tablet,delayed release (DR/EC) 75 mg PO ONCE irbesartan 150 mg tablet 150 mg PO DAILY levalbuterol tartrate 45 mcg/actuation HFA aerosol inhaler 2 inh IH Q6H PRN (Reason: shortness of breath or wheezing) 90 Days Qty: 15 3RF fluticasone propion-salmeterol 250-50 mcg/dose blister with device 1 inh IH BID 90 Days Qty: 60 3RF fluticasone propionate 50 mcg/actuation spray,suspension 1 spray NS BID 90 Days Qty: 15.8 3RF Rx Instructions: administer into each nostril levalbuterol tartrate [Xopenex HFA] 45 mcg/actuation HFA aerosol inhaler 2 inh inhalation Q6H PRN (Reason: shortness of breath or wheezing) 90 Days Qty: 15 3RF carvedilol 25 mg tablet 25 mg PO BID 90 Days Qty: 360 Patient Comments: aspirin 81 MG tablet,delayed release (DR/EC) 81 mg PO DAILY potassium chloride 20 MEQ tablet 20 meq PO TID levalbuterol HCl 1.25 MG/3 ML solution for nebulization 1.25 mg IH Q6H ondansetron 4 MG tablet,disintegrating 4 mg PO BIDP PRN (Reason: Nausea And Vomiting) Qty: 10 0RF amiodarone 400 MG tablet 100 mg PO DAILY diazepam 5 MG tablet 5 mg PO BIDP PRN (Reason: Anxiety) amlodipine 2.5 MG tablet 2.5 mg PO DAILY omeprazole 20 MG capsule,delayed release(DR/EC) 20 mg PO DAILY hydrocodone-acetaminophen 1 TAB tablet 1 tab PO Q6HP PRN (Reason: Moderate Pain) Qty: 10 0RF Referrals Follow up/Referrals: Alfred Cantu MD [Primary Care Provider] - See instructions Sergei Keyes DO [Staff Physician] - See instructions Activity Restrictions/Add. Instructions Additional Instructions/Restrictions: You were evaluated in the emergency department today. Please call Dr. Keyes's office to see him in clinic tomorrow. He would like to see you tomorrow to do further wound care. Take Tylenol and ibuprofen at home as needed for pain. Keep your wounds clean and dry. Do not submerge under any water. 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 Return to the emergency department for new or worsening symptoms. Clinical Impressions Clinical Impression: Laceration of knee, left, complicated, Forehead laceration, Skin tear of right elbow without complication, Fracture, patella, open Instructions Patient Instructions: DI for Laceration Repair, How to Prevent Falls Discharge ED Provider: Inessa Freeman General Adult HPI <Inessa Freeman DO - Last Filed: 09/04/23 23:28> General Chief complaint: Fall Stated complaint: AO09/04 Fall LT knee pain, lac on forehaed Time Seen by Provider: 09/04/23 21:31 Mode of Arrival: Wheelchair Source of Information: Patient and Spouse Limitations: No Limitations Description of Symptoms (Recalled from ER Triage Doc. by RN): pt reports multiple falls the last few days, last 1 was 1 hr ago, tripped on rug, hit head, laceration to left knee, bleeding controlled. has skin tear to right elbow History of Present Illness HPI narrative: This patient is an 82-year-old female with a history of atrial fibrillation status post AICD placement with Watchman device in place, hypertension, CHF, and frequent falls presenting to the emergency department for evaluation with concern for fall with a laceration to her forehead, skin tear to right elbow, and large laceration to her left knee. She had been seen here previously for a laceration to the left knee after a fall, which was repaired back in June. She states that it just started healing up completely when she fell today. She states that her foot got caught up on a rug that she had put down in front of the door because it was cold. When she tripped, she fell into the fireplace. She hit her forehead and suffered a small laceration, but she did not lose consciousness. She suffered a very large laceration to her left knee from the fall. She also has a skin tear to her right elbow without significant pain. She does not take any blood thinners. Related Data Home Medications Medication Instructions Recorded Confirmed carvedilol 25 mg tablet 25 mg PO BID High blood pressure 09/09/17 03/21/23 90 days #360 tabs aspirin 81 mg tablet,delayed 81 mg PO DAILY Blood thinner 08/26/19 03/21/23 release levalbuterol HCl 1.25 mg/3 mL 1.25 mg inhalation Q6H Asthma 08/26/19 03/21/23 solution for nebulization potassium chloride 20 mEq 20 meq PO TID Supplement 08/26/19 03/21/23 tablet,extended release(part/cryst) amiodarone 400 mg tablet 100 mg PO DAILY heart rate 03/06/21 03/21/23 diazepam 5 mg tablet 5 mg PO BIDP PRN Anxiety 03/06/21 03/21/23 amlodipine 2.5 mg tablet 2.5 mg PO DAILY High blood pressure 03/07/21 03/21/23 omeprazole 20 mg capsule,delayed 20 mg PO DAILY ACID REFLUX 03/07/21 03/21/23 release diclofenac sodium 75 mg 75 mg PO ONCE 01/09/22 03/21/23 tablet,delayed release irbesartan 150 mg tablet 150 mg PO DAILY 01/09/22 03/21/23 Previous Rx's Medication Instructions Recorded ondansetron 4 mg disintegrating 4 mg PO BIDP PRN Nausea And 03/02/21 tablet Vomiting #10 tabs hydrocodone 5 mg-acetaminophen 325 1 tab PO Q6HP PRN Moderate Pain 07/14/21 mg tablet #10 tabs levalbuterol tartrate 45 2 inh inhalation Q6H PRN shortness 01/09/22 mcg/actuation aerosol inhaler of breath or wheezing 90 days #15 grams fluticasone 250 mcg-salmeterol 50 1 inh inhalation BID 90 days #60 ea 04/12/22 mcg/dose blistr powdr for inhalation fluticasone propionate 50 1 spray intranasal BID 90 days 04/12/22 mcg/actuation nasal #15.8 mL spray,suspension levalbuterol tartrate 45 2 inh inhalation Q6H PRN shortness 04/12/22 mcg/actuation aerosol inhaler of breath or wheezing 90 days #15 (Xopenex HFA) grams cephalexin 500 mg capsule 500 mg PO Q8H 7 days #21 caps 09/04/23 Allergies Allergy/AdvReac Type Severity Reaction Status Date / Time latex Allergy Intermediate I-RASH Verified 03/21/23 13:58 Sulfa (Sulfonamide Allergy Mild NA-NAUSEA Verified 03/21/23 13:58 Antibiotics) levofloxacin AdvReac Mild Blurry Verified 03/21/23 13:58 [facility] <Inessa Freeman DO - Last Filed: 09/04/23 23:28> [facility] Disclaimer: The information contained in this section may have been updated after the patient was seen, as this information can be updated by other users. Medical History Asthma Dyspnea on exertion Mild persistent asthma Seasonal allergic rhinitis Surgical History History of permanent cardiac pacemaker placement Family History Other No significant family history Social History Smoking Status: Never smoker second hand exposure: No alcohol intake: never substance use type: denies use current occupational status: retired Travel in the last 8 weeks: None household members: spouse housing: house current occupational exposures/hazards: No caffeine: Yes <Inessa Freeman DO - Last Filed: 09/04/23 23:28> ROS Obtained: Yes All systems reviewed & no additional complaints except as documented Physical Exam <Inessa Freeman DO - Last Filed: 09/04/23 23:28> General General appearance: alert and in no apparent distress Head Head exam: normocephalic and other (Superficial laceration at the center of the forehead) Eye Eye exam: Present normal appearance, PERRL and EOMI ENT ENT exam: Present normal exam, normal oropharynx, mucous membranes moist and normal external ear exam Neck Neck exam: Present normal inspection, full ROM and trachea midline; Absent tenderness Chest Chest inspection: Present normal inspection and symmetric chest wall rise; Absent tenderness Respiratory Respiratory exam: Present normal lung sounds bilaterally; Absent respiratory distress, wheezes, stridor or accessory muscle use Cardiovascular Cardiovascular exam: Present regular rate and normal rhythm Abdominal Exam Abdominal exam: Present soft; Absent distention, tenderness or guarding Extremities Exam Extremities exam: Present full ROM, tenderness (Tenderness to palpation of the left knee. ), normal capillary refill and other (Very large complex laceration to the left knee without obvious extension into the joint. No obvious flap of tendon. No contamination. Straight leg raise is intact. Neurovascularly intact distally.); Absent edema Back Exam Back exam: Present normal inspection and full ROM; Absent tenderness Neurological Exam Neurological exam: Present alert, oriented X3, CN II-XII intact and normal gait; Absent motor sensory deficit Psychiatric Psychiatric exam: Present normal affect and normal mood Skin Skin exam: Present warm, dry and other (Laceration to the knee as above. Superficial skin abrasion to the right elbow that is hemostatic.) Medical Decision Making <Inessa Freeman, DO - Last Filed: 09/04/23 23:28> Medical Records Medical records reviewed: Yes I reviewed the patient's medical records. Saad Inquiry Pt receiving controlled substance: No Vital Signs: 09/04/23 21:14 09/04/23 22:31 09/04/23 22:46 Temperature 98.2 F Temperature Source Oral Pulse Rate 84 75 Pulse Rate [Right] 74 Respiratory Rate 16 20 18 Blood Pressure 177/110 H 174/105 H Blood Pressure [Right Arm] 205/100 H Blood Pressure Mean 116 114 Blood Pressure Mean [Right Arm] 135 Blood Pressure Source [Right Arm] Automatic Cuff 02 Sat by Pulse Oximetry 94 L 95 95 Oxygen Delivery Method Room Air Room Air Room Air 09/04/23 23:19 Temperature Temperature Source Pulse Rate 73 Pulse Rate [Right] Respiratory Rate 20 Blood Pressure 192/76 H Blood Pressure [Right Arm] Blood Pressure Mean 114 Blood Pressure Mean [Right Arm] Blood Pressure Source [Right Arm] 02 Sat by Pulse Oximetry 96 Oxygen Delivery Method Room Air Lab Data Lab results reviewed: Yes I reviewed the patient's lab results. Lab Results 09/04/23 22:15: WBC 9.8, RBC 4.19 L, Hgb 10.1 L, Hct 31.1 L, MCV 74.3 L, MCH 24.2 L, MCHC 32.6, RDW 18.0 H, Plt Count 210, MPV 10.3, Neut % (Auto) 64.5, Lymph % (Auto) 24.1, Bradford % (Auto) 6.3, Eos % (Auto) 4.3, Baso % (Auto) 0.8, Neut # (Auto) 6.4, Lymph # (Auto) 2.4, Bradford # (Auto) 0.6, Eos # (Auto) 0.4, Baso # (Auto) 0.1, PT 10.3, INR 0.95, APTT 25.7, Sodium 144, Potassium 3.7, Chloride 110 H, Carbon Dioxide 28, Anion Gap 9.7, BUN 17, Creatinine 1.10 H, Estimated Creat Clear 54, Estimated GFR 48 L, Est GFR ( Amer) 58 L, Glucose 107 H, Calcium 8.3 L, Total Bilirubin 0.3, AST 27, ALT 19, Alkaline Phosphatase 96, Total Protein 5.9 L, Albumin 3.5, Globulin 2.4, Albumin/Globulin Ratio 1.5 09/04/23 22:15 09/04/23 22:15 Orders (Tests/Meds): ED MEDICATIONS Generic Name Dose Route Start Last Admin Trade Name Freq PRN Reason Stop Dose Admin Oxycodone HCl 5 mg 09/05/23 00:03 Oxycodone 5mg Immediate Release Tablet PO 09/05/23 00:04 ONCE ONE Discontinued Medications Generic Name Dose Route Start Last Admin Trade Name Freq PRN Reason Stop Dose Admin Cefazolin Sodium 2 gm 09/04/23 21:32 09/04/23 22:34 Cefazolin 2gm Vial IV 09/04/23 21:33 2 gm ONCE ONE Administration Ketorolac Tromethamine 15 mg 09/04/23 22:32 09/04/23 22:46 Ketorolac 30mg/Ml Vial IV 09/04/23 22:33 15 mg ONCE ONE Administration Morphine Sulfate 2 mg 09/04/23 22:32 09/04/23 22:46 Morphine 2mg/Ml Syringe IV 09/04/23 22:33 2 mg ONCE ONE Administration Ondansetron HCl 4 mg 09/04/23 22:33 09/04/23 22:45 Ondansetron 4mg/2ml Vial IV 09/04/23 22:34 4 mg ONCE ONE Administration Tetanus/Reduced Diphtheria/Acell Pertussis 0.5 ml 09/04/23 21:32 09/04/23 22:33 Tet/Diphth/Pert-Adult 0.5ml Syringe IM 09/04/23 21:33 0.5 ml .ONCE ONE Administration ORDERS Category Date Time Status CT cervical spine wo con Stat Cat Scan 09/04/23 21:[address] head/brain wo con Stat Cat Scan 09/04/23 21:[address] knee LT wo con Stat Cat Scan 09/04/23 21:32 Completed XR chest portable Stat Exams 09/04/23 21:32 Completed XR femur LT 2V Stat Exams 09/04/23 21:32 Completed XR knee LT 3V Stat Exams 09/04/23 21:32 Completed XR pelvis 1-2V Stat Exams 09/04/23 21:32 Completed XR tibia fibula LT 2V Stat Exams 09/04/23 21:32 Completed Activated Partial Thrombo Time Stat Lab 09/04/23 22:15 Completed Complete Blood Count Auto Diff Stat Lab 09/04/23 22:15 Completed Comprehensive Metabolic Panel Stat Lab 09/04/23 22:15 Completed Prothrombin Time INR Stat Lab 09/04/23 22:15 Completed Medical Decision Narrative: In summary, this patient is a 82-year-old female presenting to the Emergency Department for evaluation of fall with laceration to the left knee, skin tear to the right elbow, laceration to the forehead. Differential diagnoses considered include but are not limited to open joint, open fracture, patellar tendon injury, neurovascular injury, polytrauma. Ruling out the most morbid conditions drove assessment. On exam, the patient is well-appearing. She has a small laceration to her forehead, small skin tear to right elbow, and very large complex laceration to her left knee. Workup included CBC, CMP, CT head without contrast, CT C-spine without contrast, chest x-ray, pelvic x-ray, and x-rays of the injured left lower extremity. CT scan of the left knee was also obtained to evaluate for gas in the joint to determine whether or not the patient likely has an open joint.. I independently interpreted CT scans prior to the radiologist read and noted no obvious intracranial hemorrhage, acute fracture, or gas in the joint to suggest open joint. Please see their read for final interpretation. Labs were obtained that demonstrated no acutely concerning abnormalities at this time.. Patient was given IV Ancef and Tdap. For wound care and repair, she was given IV morphine, Toradol, and Zofran. On reassessment, patient is resting company remains neurovascularly and neurologically intact. She is still able to straight leg raise. Wound was thoroughly irrigated and explored without obvious deep extension. I called and had an interactive discussion with Dr. Keyes with orthopedics who advised that since she likely does not have open joint, he would like to see her in clinic tomorrow for evaluation with concern for further need for wound care. He recommended copious irrigation, antibiotics, and close follow-up. Patient is given prescription for Keflex and instructions to see him tomorrow. Dr. Soto graciously provided wound care. Patient care was signed out to him at 2300. <Otto Soto MD - Last Filed: 09/05/23 00:14> Vital Signs: 09/04/23 21:14 09/04/23 22:31 09/04/23 22:46 Temperature 98.2 F Temperature Source Oral Pulse Rate 84 75 Pulse Rate [Right] 74 Respiratory Rate 16 20 18 Blood Pressure 177/110 H 174/105 H Blood Pressure [Right Arm] 205/100 H Blood Pressure Mean 116 114 Blood Pressure Mean [Right Arm] 135 Blood Pressure Source [Right Arm] Automatic Cuff 02 Sat by Pulse Oximetry 94 L 95 95 Oxygen Delivery Method Room Air Room Air Room Air 09/04/23 23:19 Temperature Temperature Source Pulse Rate 73 Pulse Rate [Right] Respiratory Rate 20 Blood Pressure 192/76 H Blood Pressure [Right Arm] Blood Pressure Mean 114 Blood Pressure Mean [Right Arm] Blood Pressure Source [Right Arm] 02 Sat by Pulse Oximetry 96 Oxygen Delivery Method Room Air Lab Data Lab Results 09/04/23 22:15: WBC 9.8, RBC 4.19 L, Hgb 10.1 L, Hct 31.1 L, MCV 74.3 L, MCH 24.2 L, MCHC 32.6, RDW 18.0 H, Plt Count 210, MPV 10.3, Neut % (Auto) 64.5, Lymph % (Auto) 24.1, Bradford % (Auto) 6.3, Eos % (Auto) 4.3, Baso % (Auto) 0.8, N eut # (Auto) 6.4, Lymph # (Auto) 2.4, Bradford # (Auto) 0.6, Eos # (Auto) 0.4, Baso # (Auto) 0.1, PT 10.3, INR 0.95, APTT 25.7, Sodium 144, Potassium 3.7, Chloride 110 H, Carbon Dioxide 28, Anion Gap 9.7, BUN 17, Creatinine 1.10 H, Estimated Creat Clear 54, Estimated GFR 48 L, Est GFR ( Amer) 58 L, Glucose 107 H, Calcium 8.3 L, Total Bilirubin 0.3, AST 27, ALT 19, Alkaline Phosphatase 96, Total Protein 5.9 L, Albumin 3.5, Globulin 2.4, Albumin/Globulin Ratio 1.5 Orders (Tests/Meds): ED MEDICATIONS Generic Name Dose Route Start Last Admin Trade Name Slade PRN Reason Stop Dose Admin Oxycodone HCl 5 mg 09/05/23 00:03 Oxycodone 5mg Immediate Release Tablet PO 09/05/23 00:04 ONCE ONE Discontinued Medications Generic Name Dose Route Start Last Admin Trade Name Slade PRN Reason Stop Dose Admin Cefazolin Sodium 2 gm 09/04/23 21:32 09/04/23 22:34 Cefazolin 2gm Vial IV 09/04/23 21:33 2 gm ONCE ONE Administration Ketorolac Tromethamine 15 mg 09/04/23 22:32 09/04/23 22:46 Ketorolac 30mg/Ml Vial IV 09/04/23 22:33 15 mg ONCE ONE Administration Morphine Sulfate 2 mg 09/04/23 22:32 09/04/23 22:46 Morphine 2mg/Ml Syringe IV 09/04/23 22:33 2 mg ONCE ONE Administration Ondansetron HCl 4 mg 09/04/23 22:33 09/04/23 22:45 Ondansetron 4mg/2ml Vial IV 09/04/23 22:34 4 mg ONCE ONE Administration Tetanus/Reduced Diphtheria/Acell Pertussis 0.5 ml 09/04/23 21:32 09/04/23 22:33 Tet/Diphth/Pert-Adult 0.5ml Syringe IM 09/04/23 21:33 0.5 ml .ONCE ONE Administration ORDERS Category Date Time Status CT cervical spine wo con Stat Cat Scan 09/04/23 21:[address] head/brain wo con Stat Cat Scan 09/04/23 21:[address] knee LT wo con Stat Cat Scan 09/04/23 21:32 Completed XR chest portable Stat Exams 09/04/23 21:32 Completed XR femur LT 2V Stat Exams 09/04/23 21:32 Completed XR knee LT 3V Stat Exams 09/04/23 21:32 Completed XR pelvis 1-2V Stat Exams 09/04/23 21:32 Completed XR tibia fibula LT 2V Stat Exams 09/04/23 21:32 Completed Activated Partial Thrombo Time Stat Lab 09/04/23 22:15 Completed Complete Blood Count Auto Diff Stat Lab 09/04/23 22:15 Completed Comprehensive Metabolic Panel Stat Lab 09/04/23 22:15 Completed Prothrombin Time INR Stat Lab 09/04/23 22:15 Completed Medical Decision Narrative: In summary, this patient is a 82-year-old female presenting to the Emergency Department for evaluation of fall with laceration to the left knee, skin tear to the right elbow, laceration to the forehead. Differential diagnoses considered include but are not limited to open joint, open fracture, patellar tendon injury, neurovascular injury, polytrauma. Ruling out the most morbid conditions drove assessment. On exam, the patient is well-appearing. She has a small laceration to her forehead, small skin tear to right elbow, and very large complex laceration to her left knee. Workup included CBC, CMP, CT head without contrast, CT C-spine without contrast, chest x-ray, pelvic x-ray, and x-rays of the injured left lower extremity. CT scan of the left knee was also obtained to evaluate for gas in the joint to determine whether or not the patient likely has an open joint.. I independently interpreted CT scans prior to the radiologist read and noted no obvious intracranial hemorrhage, acute fracture, or gas in the joint to suggest open joint. Please see their read for final interpretation. Labs were obtained that demonstrated no acutely concerning abnormalities at this time.. Patient was given IV Ancef and Tdap. For wound care and repair, she was given IV morphine, Toradol, and Zofran. On reassessment, patient is resting company remains neurovascularly and neurologically intact. She is still able to straight leg raise. Wound was thoroughly irrigated and explored without obvious deep extension. I called and had an interactive discussion with Dr. Keyes with orthopedics who advised that since she likely does not have open joint, he would like to see her in clinic tomorrow for evaluation with concern for further need for wound care. He recommended copious irrigation, antibiotics, and close follow-up. Patient is given prescription for Keflex and instructions to see him tomorrow. Dr. Soto graciously provided wound care. Patient care was signed out to him at 2300. Brittany DAMON: I assumed care of the patient at the time of handoff from the prior provider. I repaired the patient's complex left knee laceration and discharged the patient with plan as above. Straight leg raise intact without signficant pain or weakness. Required significant wound revision. Variety of absorbable sutures placed in the reapproximated subcutaneous tissues. Fourteen 4-0 Ethilon sutures placed in the skin. An area of skin tear was placed back over the wound as a biologic Band-Aid. Covered in nonabsorbent pads, Kerlix, Thiago wrap. Patient instructed to keep leg straight as possible to prevent suture failure. Given risk of DVT with knee immobilization, we elected to not immobilize the knee. Procedures <Inessa Freeman DO - Last Filed: 09/04/23 23:28> Risk/Benefits of Procedure(s) Were Explained: Yes Laceration Laceration 1: Site: face (forehead) Size (cm): 1 Description: linear Depth: simple, single layer Pre-repair: wound explored, irrigated extensively and deep structures intact Skin layer closed with: Dermabond <Otto Soto MD - Last Filed: 09/05/23 00:14> Laceration Laceration 2: Site: lower extremity (left knee) Size (cm): 10 Description: other (Irregular, multiple skin flaps, skin tears, laceration of subcutaneous tissues noted, tendon appears intact.) Depth: involves subcutaneous layer Local Anesthetic: lidocaine 1% Amount of anesthesia used (mL): 10 Pre-repair: wound explored, irrigated extensively, extensive debridement and wound margins revised Skin layer closed with: nylon Size (cm): 4-0 Number of sutures: 14 Technique: simple, interrupted and horizontal mattress Subcutaneous layer closed with: other (monocryl and fast gut) Size: 4-0 and 5-0 Number of sutures: 6 Technique: simple, interrupted and running Critical Care <Inessa Freeman DO - Last Filed: 09/04/23 23:28> Critical Care Time Critical Care Time: No
[2023-09-04 22:31] VITALS: BP 177/110; PULSE 84; RESP 20; O2SAT 95
[2023-09-04 22:31] LABS: Basophils # 0.1 K/mm3 (0-0.2); Basophils % 0.8 % (0.1-2.0); Eosinophils # 0.4 K/mm3 (0.0-0.4); Eosinophils % 4.3 % (0.1-12.0); Hematocrit 31.1 % (37.0-47.0); Hemoglobin 10.1 g/dL (12.2-16.2); Lymphocytes # 2.4 K/mm3 (0.7-4.5); Lymphocytes % 24.1 % (10-50); Mean Corpuscular HGB Conc 32.6 g/dL (31.8-35.4); Mean Corpuscular Hemoglobin 24.2 pg (27.0-31.2); Mean Corpuscular Volume 74.3 fl (81-99); Mean Platelet Volume 10.3 fl (7.4-10.4); Monocytes # 0.6 K/mm3 (0.1-1.0); Monocytes % 6.3 % (1.7-9.3); Neutrophils # 6.4 K/mm3 (1.8-7.8); Neutrophils % 64.5 % (37.0-80.0); Platelet Count 210 K/mm3 (142-424); Red Blood Count 4.19 M/mm3 (4.20-5.40); White Blood Count 9.8 K/mm3 (4.8-10.8)
[2023-09-04] MEDS: TET/DIPHTH/PERT-ADULT 0.5ML SYRINGE 0.5 ML IM (22:33)
[2023-09-04] MEDS: CEFAZOLIN 2GM VIAL 2 GM IV (22:34)
[2023-09-04 22:38] LABS: Activated Partial Thrombo Time 25.7 seconds (22.8-30.6); INR 0.95 (0.9-1.1); Prothrombin Time 10.3 seconds (10.1-12.5)
[2023-09-04 22:39] LABS: Alanine Aminotransferase 19 U/L (12-78); Albumin Level 3.5 g/dl (3.5-5.0); Albumin/Globulin Ratio 1.5 (1.1-1.8); Alkaline Phosphatase 96 U/L (38-126); Anion Gap 9.7 mEq/L (5-15); Aspartate Amino Transferase 27 U/L (14-36); Bilirubin,Total 0.3 mg/dl (0.2-1.3); Blood Urea Nitrogen 17 mg/dl (7-17); Calcium 8.3 mg/dl (8.4-10.2); Carbon Dioxide 28 mmol/L (22.0-30.0); Chloride 110 mmol/L (98-107); Creatinine Clearance Estimated 54 mL/min (50-200); Estimated Glomerular Filt Rate 48 ml/min (>60); GFR (African American) 58 ML/MIN (>60); Globulin 2.4 g/dL (1.3-3.2); Glucose 107 mg/dl (74-100); Potassium 3.7 mmoL/L (3.5-5.1); Sodium 144 mmol/L (136-145); Total Protein,Serum 5.9 g/dl (6.3-8.2)
[2023-09-04] MEDS: ONDANSETRON 4MG/2ML VIAL 4 MG IV (22:45)
[2023-09-04 22:46] VITALS: BP 174/105; PULSE 75; RESP 18; O2SAT 95
[2023-09-04] MEDS: KETOROLAC 30MG/ML VIAL 15 MG IV (22:46)
[2023-09-04] MEDS: MORPHINE 2MG/ML SYRINGE 2 MG IV (22:46)
--- NOTE | 2023-09-04 22:50 | PC.NURSE ---
Irrigated wound and cleaned area with hibiclens and dried area. Dr Soto in room to repair the area. CR
[2023-09-04 23:19] VITALS: BP 192/76; PULSE 73; RESP 20; O2SAT 96
[2023-09-05] MEDS: OXYCODONE 5MG IMMEDIATE RELEASE TABLET 5 MG PO (00:12)
[2023-09-05 00:30] VITALS: BP 186/92; PULSE 86; RESP 16; TEMP 36.8; O2SAT 95
== END 2023-09-05 00:32 | disposition home or self-care (01) ==
PROVIDERS: Emergency Provider Emergency Medicine; PCP Internal Medicine
DX: S82.002C Unspecified fracture of left patella, initial encounter for open fracture type IIIA, IIIB, or IIIC (principal); S01.81XA Laceration without foreign body of other part of head, initial encounter; S51.011A Laceration without foreign body of right elbow, initial encounter; I48.91 Unspecified atrial fibrillation; I11.0 Hypertensive heart disease with heart failure; I50.9 Heart failure, unspecified; R29.6 Repeated falls; J45.30 Mild persistent asthma, uncomplicated; W01.0XXA Fall on same level from slipping, tripping and stumbling without subsequent striking against object, initial encounter
CPT/HCPCS: 12004; 12011; 70450; 71045; 72125; 72170; 73552; 73562; 73590; 73700; 80053; 85025; 85610; 85730; 90471; 90715; 96372; 96374; 96375; 99285; J0690; J2405

== ENCOUNTER 2024-04-26 12:52 | Outpatient (CLI) | payer MEDICARE, OTHER, SELFPAY ==
--- NOTE | 2024-04-26 | CA_ITS ---
APPROVED REPORT EXAM: Comprehensive 2D, Doppler, and color-flow Echocardiogram Architectural Project Captain: Neelima Reis CRT Ht: 4 ft 11 in Wt: 184lbs BSA: 1.78 BP: 136/88 mmHg Indications: Congestive Heart Failure, Shortness of Breath, Atrial Fibrillation, Hypertension/HDD 2D Dimensions LA Volume 50.00 mL LA Volume Index 27.50 mL/m2 (M/F) 16-34 M-Mode Dimensions RVDd 3.14 cm (0.9-2.6) LA Diam 4.68 cm (1.9-4.0) LVDd 5.07 cm (3.5-5.7) LVDs 2.70 cm (3.5-5.7) IVSd 1.69 cm (0.6-1.1) PWd 0.89 cm (0.6-1.1) EF (Teich) 77.90% FS 46.70% EDV (Teich) 122.10 mL TAPSE 2.42 (<1.7) ESV (Teich) 27.00 mL LV Diastology E Decel Time 310 (160-240 msec) E/A Ratio 1.91 MED A' 7.90 cm/s LAT A' 4.00 cm/s Aortic Valve TAMRA Index 1.18 cm2/m2 AoV Peak Morro. 198.0 (50-130 cm/s) AI PHT 528.00 ms AO Peak GR. 15.70 mmHg AO Mean GR. 9.30 (<5 mmHg) AO VTI 38.3 (18-25 cm) TAMRA (VTI) 2.15 (2.5-4.5 cm2) Mitral Valve MV A Velocity 73.0 (40-130 cm/s) E/A Ratio 1.91 Pulmonary Valve PV Peak Velocity 187.0 (50-150 cm/s) Tricuspid Valve TR P. Velocity 271.00 cm/s RAP Estimate 10.00 mmHg RVSP 39.40 mmHg Left Ventricle The left ventricle is normal size. The left ventricular systolic function is normal. The left ventricular ejection fraction is within the normal range. There is increased LV wall thickness. There is normal LV segmental wall motion. Diastolic function is indeterminate. LVEF is 55%. Right Ventricle The right ventricle is normal size. The right ventricular systolic function is normal. There is a device lead in the right ventricle. Atria The left atrium is mildly dilated. Right atrium is mildly dilated. There is no Doppler evidence of interatrial shunt. Aortic Valve The aortic valve is mildly thickened. Aortic sclerosis, but no evidence of aortic stenosis. Mild aortic regurgitation. Mitral Valve Moderate mitral annular calcification. The mitral valve is mildly thickened. No evidence of mitral valve stenosis. Moderate mitral regurgitation. Tricuspid Valve The tricuspid valve leaflets are thin and pliable. Moderate tricuspid regurgitation. RVSP is 25-30 mmHg. Pulmonic Valve The pulmonary valve is normal in structure. Trace pulmonic regurgitation. Great Vessels The aortic root is normal in size. The ascending aorta is normal in size. IVC is normal in size and collapses >50% with inspiration. Pericardium There is no pericardial effusion. Other Information Study Quality: Technically Difficult Conclusion Technically difficult study due to poor acoustic windows. Normal biventricular systolic function. Mild biatrial dilation. Moderate MR, moderate TR. Mild AI. Electronically signed by : Gina Quinones MD 04/30/2024 01:54:04
== END 2024-04-26 23:59 | disposition home or self-care (01) ==
LOC: RT 12:53
PROVIDERS: PCP Internal Medicine; Visit Provider Internal Medicine Cardiovascular Disease
DX: I51.7 Cardiomegaly (principal); R06.02 Shortness of breath
CPT/HCPCS: 93306

== ENCOUNTER 2024-05-19 14:50 | Outpatient (CLI) | payer MEDICARE, OTHER, SELFPAY ==
[2024-05-19 14:59] LABS: Adenovirus F 40/41, stool Not Detected (NotDetected); Astrovirus Not Detected (NotDetected); Campylobacter Not Detected (NotDetected); Clostridium Difficile A/B, PCR Not Detected (NotDetected); Cryptosporidium Not Detected (NotDetected); Cyclospora Cayetanesis Not Detected (NotDetected); Entamoeba histolytica Not Detected (NotDetected); Enteroaggregative E coli Not Detected (NotDetected); Enteropathogenic E coli Not Detected (NotDetected); Enterotoxigenic E coli Not Detected (NotDetected); Giardia lamblia Not Detected (NotDetected); Norovirus Not Detected (NotDetected); Plesimonas Shigalloides, PCR Not Detected (NotDetected); Rotavirus A Not Detected (NotDetected); Salmonella, PCR Not Detected (NotDetected); Sapovirus Not Detected (NotDetected); Shiga-like toxin E coli Not Detected (NotDetected); Shigella Enterovasive E coli Not Detected (NotDetected); Vibrio Cholerae Not Detected (NotDetected); Vibrio, PCR Not Detected (NotDetected); Yersinia Entercolitica, PCR Not Detected (NotDetected)
== END 2024-05-19 23:59 | disposition home or self-care (01) ==
PROVIDERS: PCP Internal Medicine; Visit Provider Nurse Practitioner Family
DX: R19.7 Diarrhea, unspecified (principal); R15.2 Fecal urgency; R15.9 Full incontinence of feces; K30 Functional dyspepsia; K52.839 Microscopic colitis, unspecified
CPT/HCPCS: 87506

== ENCOUNTER 2024-08-23 16:30 | Outpatient (CLI) | payer MEDICARE, OTHER, SELFPAY ==
[2024-08-23 17:21] LABS: Basophils # 0.1 K/mm3 (0-0.2); Basophils % 0.3 % (0.1-2.0); Eosinophils # 0.1 K/mm3 (0.0-0.4); Eosinophils % 0.7 % (0.1-12.0); Hematocrit 31.2 % (37.0-47.0); Hemoglobin 9.2 g/dL (12.2-16.2); Lymphocytes # 1.7 K/mm3 (0.7-4.5); Lymphocytes % 11.2 % (10-50); Mean Corpuscular HGB Conc 29.5 g/dL (31.8-35.4); Mean Corpuscular Hemoglobin 22.4 pg (27.0-31.2); Mean Corpuscular Volume 76.1 fl (81-99); Mean Platelet Volume 11.4 fl (7.4-10.4); Monocytes # 0.7 K/mm3 (0.1-1.0); Monocytes % 4.6 % (1.7-9.3); Neutrophils # 12.5 K/mm3 (1.8-7.8); Neutrophils % 81.3 % (37.0-80.0); Platelet Count 311 K/mm3 (142-424); Red Cell Distribution Width 19.1 % (11.5-17.5); White Blood Count 15.4 K/mm3 (4.8-10.8)
[2024-08-23 17:22] LABS: MANUAL DIFFERENTIAL MANUAL DIFFERENTIAL (MANUAL DIFF)
[2024-08-23 17:40] LABS: Chloride 104 mmol/L (98-107)
[2024-08-23 17:41] LABS: Albumin Level 3.4 g/dl (3.5-5.0); Potassium 4.2 mmoL/L (3.5-5.1); Sodium 136 mmol/L (136-145)
[2024-08-23 17:43] LABS: Anion Gap 9.2 mEq/L (5-15); Blood Urea Nitrogen 26 mg/dl (7-17); Carbon Dioxide 27 mmol/L (22.0-30.0); Estimated Glomerular Filt Rate 36 ml/min (>60); GFR (African American) 44 ML/MIN (>60)
[2024-08-23 17:44] LABS: Alanine Aminotransferase 20 U/L (12-78); Albumin/Globulin Ratio 1.7 (1.1-1.8); Alkaline Phosphatase 94 U/L (38-126); Aspartate Amino Transferase 22 U/L (14-36); Bilirubin,Total 0.3 mg/dl (0.2-1.3); Calcium 8.8 mg/dl (8.4-10.2); Chol/HDL Ratio 4.6 (1-3.5); Cholesterol 208 mg/dl (140-200); Glucose 109 mg/dl (74-100); HDL Cholesterol 45 mg/dl (40-60); Total Protein,Serum 5.4 g/dl (6.3-8.2); Triglycerides 243 mg/dl (30-150); VLDL Cholesterol 49 mg/dL (0-40)
[2024-08-23 17:55] LABS: Direct LDL Cholesterol 93.23 mg/dL (100-129)
[2024-08-23 17:57] LABS: Eosinophils % 2 % (0-3); Lymphocytes % 14 % (10-50); Monocytes % 3 % (2-9); Neutrophils % 81 % (42-76); Total Cells Counted 100
[2024-08-23 18:02] LABS: Ovalocytes 1+; Poikilocytosis 1+
[2024-08-23 18:04] LABS: Platelet Estimate Normal
[2024-08-23 18:14] LABS: Thyroid Stimulating Hormone 1.27 uIU/mL (0.465-4.68)
[2024-08-24 14:43] LABS: Iron 33 ug/dL (37-170)
[2024-08-24 14:57] LABS: Total Iron Binding Capacity 399 ug/dL (265-497)
== END 2024-08-23 23:59 | disposition home or self-care (01) ==
LOC: LAB.DROPOF 08-24 10:59
PROVIDERS: PCP Internal Medicine; Visit Provider Internal Medicine
DX: E78.5 Hyperlipidemia, unspecified (principal); I87.2 Venous insufficiency (chronic) (peripheral); I50.32 Chronic diastolic (congestive) heart failure; Z79.899 Other long term (current) drug therapy; I11.0 Hypertensive heart disease with heart failure; D64.9 Anemia, unspecified
CPT/HCPCS: 80053; 80061; 83540; 83550; 84443; 85007; 85025; 85027

== ENCOUNTER 2024-09-02 15:00 | Outpatient (CLI) | payer MEDICARE, OTHER, SELFPAY ==
[2024-09-02 16:47] LABS: Basophils # 0.1 K/mm3 (0-0.2); Basophils % 0.4 % (0.1-2.0); Eosinophils # 0.3 K/mm3 (0.0-0.4); Eosinophils % 2.3 % (0.1-12.0); Lymphocytes # 2.7 K/mm3 (0.7-4.5); Lymphocytes % 22.9 % (10-50); Mean Corpuscular Hemoglobin 22.5 pg (27.0-31.2); Mean Corpuscular Volume 77.5 fl (81-99); Monocytes # 0.8 K/mm3 (0.1-1.0); Monocytes % 6.5 % (1.7-9.3); Neutrophils # 7.8 K/mm3 (1.8-7.8); Neutrophils % 67.1 % (37.0-80.0); Platelet Count 221 K/mm3 (142-424); Red Cell Distribution Width 18.9 % (11.5-17.5); White Blood Count 11.7 K/mm3 (4.8-10.8)
[2024-09-02 17:25] LABS: Chloride 104 mmol/L (98-107); Sodium 142 mmol/L (136-145)
[2024-09-02 17:28] LABS: Blood Urea Nitrogen 22 mg/dl (7-17); Estimated Glomerular Filt Rate 39 ml/min (>60); GFR (African American) 48 ML/MIN (>60)
[2024-09-02 17:29] LABS: Calcium 8.7 mg/dl (8.4-10.2); Carbon Dioxide 28 mmol/L (22.0-30.0)
[2024-09-02 17:34] LABS: Anion Gap 13.7 mEq/L (5-15); Potassium 3.7 mmoL/L (3.5-5.1)
[2024-09-02 17:37] LABS: Glucose 93 mg/dl (74-100)
== END 2024-09-02 23:59 | disposition home or self-care (01) ==
LOC: LAB.DROPOF 09-03 08:27
PROVIDERS: PCP Internal Medicine; Visit Provider Internal Medicine
DX: D50.9 Iron deficiency anemia, unspecified (principal); I50.32 Chronic diastolic (congestive) heart failure; I87.2 Venous insufficiency (chronic) (peripheral); I10 Essential (primary) hypertension
CPT/HCPCS: 80048; 85025

== ENCOUNTER 2024-11-01 16:00 | Outpatient (CLI) | payer MEDICARE, OTHER, SELFPAY ==
[2024-11-01 17:21] LABS: Basophils # 0.1 K/mm3 (0-0.2); Basophils % 0.7 % (0.1-2.0); Eosinophils # 0.3 K/mm3 (0.0-0.4); Eosinophils % 2.5 % (0.1-12.0); Hematocrit 35.3 % (37.0-47.0); Hemoglobin 10.7 g/dL (12.2-16.2); Lymphocytes # 3.1 K/mm3 (0.7-4.5); Lymphocytes % 29.2 % (10-50); Mean Corpuscular HGB Conc 30.3 g/dL (31.8-35.4); Mean Corpuscular Hemoglobin 24.2 pg (27.0-31.2); Mean Corpuscular Volume 79.9 fl (81-99); Mean Platelet Volume 12.6 fl (7.4-10.4); Monocytes # 0.7 K/mm3 (0.1-1.0); Monocytes % 6.9 % (1.7-9.3); Neutrophils # 6.3 K/mm3 (1.8-7.8); Neutrophils % 60.3 % (37.0-80.0); Platelet Count 251 K/mm3 (142-424); Red Blood Count 4.42 M/mm3 (4.20-5.40); Red Cell Distribution Width 17.5 % (11.5-17.5); White Blood Count 10.5 K/mm3 (4.8-10.8)
[2024-11-01 18:30] LABS: Chloride 104 mmol/L (98-107); Potassium 4.3 mmoL/L (3.5-5.1); Sodium 140 mmol/L (136-145)
[2024-11-01 18:33] LABS: Anion Gap 9.3 mEq/L (5-15); Blood Urea Nitrogen 20 mg/dl (7-17); Carbon Dioxide 31 mmol/L (22.0-30.0); Estimated Glomerular Filt Rate 36 ml/min (>60); GFR (African American) 44 ML/MIN (>60)
[2024-11-01 18:35] LABS: Calcium 9.7 mg/dl (8.4-10.2); Glucose 89 mg/dl (74-100)
== END 2024-11-01 23:59 | disposition home or self-care (01) ==
LOC: LAB.DROPOF 11-03 11:45
PROVIDERS: PCP Internal Medicine; Visit Provider Internal Medicine
DX: I11.0 Hypertensive heart disease with heart failure (principal); I50.32 Chronic diastolic (congestive) heart failure
CPT/HCPCS: 80048; 85025

== ENCOUNTER 2024-11-09 13:54 | Outpatient (CLI) | payer MEDICARE, OTHER, SELFPAY ==
--- NOTE | 2024-11-09 14:00 | US_ITS ---
FINAL REPORT TECHNIQUE: Ultrasound imaging of the back soft tissues was obtained. CLINICAL HISTORY: .palp areas noted on pts back FINDINGS: There are 2 calcified nodules accounting for 2 of the palpable abnormalities in the right back which may represent calcified cyst or areas of fat necrosis. These measure up to 16 mm. There is a probable lipoma within the midline measuring at 35 x 9 mm. A fourth area, located within the right lower back measures 59 x 18 mm and also could represent lipoma. IMPRESSION: Nonspecific lesions as above including 2 probable lipomas and other 2 areas which are calcified. Reviewed, Interpreted and Dictated by Gerald Oreilly MD Transcribed by Trinidad Thomas Authenticated and [facility]
== END 2024-11-09 23:59 | disposition home or self-care (01) ==
LOC: RAD 13:55
PROVIDERS: PCP Internal Medicine; Visit Provider Internal Medicine
DX: D17.79 Benign lipomatous neoplasm of other sites (principal)
CPT/HCPCS: 76604

== ENCOUNTER 2024-11-18 14:08 | Outpatient (CLI) | payer MEDICARE, OTHER, SELFPAY ==
[2024-11-18 15:09] LABS: Blood Urea Nitrogen 16 mg/dl (7-17); Estimated Glomerular Filt Rate 43 ml/min (>60); GFR (African American) 52 ML/MIN (>60)
== END 2024-11-18 23:59 | disposition home or self-care (01) ==
LOC: LAB 14:09
PROVIDERS: PCP Internal Medicine; Visit Provider Surgery
DX: D17.1 Benign lipomatous neoplasm of skin and subcutaneous tissue of trunk (principal)
CPT/HCPCS: 36415; 82565; 84520

== ENCOUNTER 2024-12-06 08:47 | Outpatient (CLI) | payer MEDICARE, SELFPAY ==
--- OUTSIDE RECORDS SUMMARY | 2024-12-06 08:50 | XMS_ITS | Continuity of Care Document ---
Author Organization [facility], PAIN MEDICINE Address [address] [place] [address] Assessment Encounter Date Assessment Date Assessment LastModified by Organization Details LastModified Time 10/14/2024 10/14/2024 This is an 84-year-old female seen today for follow-up evaluation of lumbosacral pain. This is worse with standing and walking. Recent L3-4 [place] ROCK has not provided benefit. Previous bilateral SI joint injection and bilateral L3-5 MBB RFA have not provided relief. She endorses the inability to stand independently and worsening low back pain. PMH: A.fib (ASA) PSHx: Pacemaker (not MRI compatible) 1. CT scan lumbar spine 06/30/2023 demonstrates severe L4-5 spinal canal stenosis with grade 1 L5-S1 anterolisthesis. Severe multilevel disc and facet arthritis 2. CT myelogram performed 06/24/2024 at [facility] demonstrates moderate central stenosis L2-3. Moderate central stenosis L4-5 and L5-S1. Bilateral facet hypertrophy throughout lumbar spine and associated foraminal stenosis. The above image findings were discussed with the patient. Previous injection therapy has included: 07/01/2024 bilateral SI joint injection 02/17/2024 bilateral L3-5 MBB RFA with out benefit 07/2023 L4-5 IL ROCK ([place]) no benefit Diclofenac Patient has participated in a physical therapy program for at least 6 weeks within the last 6 months Presentation is consistent with lumbar spondylosis and stenosis. I recommend: 1. Referral to neurosurgery to consider laminectomy 2. I recommend the patient engage in a core exercise plan such as yoga or pilates on a halfway basis. I had an in-depth discussion with the patient regarding the risks of the procedure including bleeding, infection, damage to surrounding structures, paralysis and even . We discussed the potential adverse effects of corticosteroid injection including flushing of the face, lipodystrophy, skin discoloration, elevated blood glucose, increased blood pressure. Risks of frequent steroid administration include weight gain, hormonal changes, mood changes, osteoporosis. External records were reviewed and discussed as above, including imaging, clinical notes, and relevant labs. [email or web address] Not available 10/14/2024 15:19:16 Plan of Treatment Reminders Order Date Submit Date Provider Last Modified By Organization Details Last Modified Time Details Appointments None recorded. Lab None recorded. Referral neurologica l surgeon referral - consultatio n for possible laminectomy 2024 025 [address] 206 Neurosurgery [facility], [address], [address], [place], [address], 5 10:13:23 Procedures None recorded. Surgeries None recorded. Imaging None recorded. Medication Orders None recorded. Patient TargetsNo targets recorded. Patient InstructionsNo instructions recorded. Reason for Referral Neurological Surgeon Referra l for Spinal stenosis of lumbar region consultation for possible laminectomy Referring Physician: Dandre Khan, Pain Management, Encounter Date: 10/14/2024 Problems No Known Problems Procedures Surgical History Date Name Laterality Status Provider Name and Address Organization Details Recorded Time 09/17/19 25 Lumbar Epidural Steroid Injection - Ean completed MURALI TRAMMELL MD [address] [place] [address], [phone], [facility] 09/17/2024 14:53:42 07/01/20 24 Sacroiliac Joint Injection - Ean completed MURALI TRAMMELL MD [address] [place] [address], [phone], [facility] 07/01/2024 12:32:17 02/17/20 24 Lumbar RFA Bilateral - Ean completed MURALI TRAMMELL MD [address] [place] [address], [phone], [facility] 02/17/2024 13:22:27 02/03/20 24 Lumbar MBB bilateral 2 level - Ean completed MURALI TRAMMELL MD [address] [place] [address], [phone], [facility] 02/03/2024 16:09:45 01/26/20 24 Lumbar MBB bilateral 2 level - Ean completed MURALI TRAMMELL MD [address] [place], [phone], [facility] 01/26/2024 14:50:15 08/11/19 19 procedure on heart completed [facility] 12/26/2023 10:35:46 cholecystectomy completed [facility] 12/26/2023 10:36:02 Appendectomy completed [facility] 12/26/2023 10:36:17 Imaging Results None recorded. Procedure Notes None recorded. Medical Equipment None Reported. Allergies Allergen ID Allergen Name Allergen Category Reaction Reaction Severity Criticality Documentation Date Start Date Code Code System Note Provider Name and Address Organization Details Recorded Time 295307 Substance with sulfonami de structure and antibacte rial mechanism of action (substanc e) medicatio n Not available Not available Not available 12/26/2023 78339 8003 SNOMED [facility] 10:27:37 569842 latex environme nt,medica tion itching Not available Not available 06/28/2024 80970 91 RxNorm Burni ng and itchi ng Meena Jefferson [facility] 14:01:35 Medications Name Sig Start Date Stop Date Status Note LastModified by Organization Details LastModified Time fluticaso ne 250 mcg-salme terol 50 mcg/dose blistr powdr for inhalatio n Inhale 1 puff twice a day by inhalati on route. active Not Available Not Available No t Available carvedilo l 25 mg tablet Take 1 tablet twice a day by oral route. active Not Available Not Available No t Available Bumex 2 mg tablet Take 1 tablet twice a day by oral route. active Not Available Not Available No t Available Tylenol Arthritis Pain 650 mg tablet,ex tended release Take 2 tablets every 8 hours by oral route. active Not Available Not Available No t Available omeprazol e 20 mg capsule,d elayed release Take 1 capsule every day by oral route. active Not Available Not Available No t Available diclofena c sodium 75 mg tablet,de layed release Take 1 tablet twice a day by oral route. 10/14 completed Not Available Not Available Not Available irbesarta n 150 mg tablet Take 1 tablet every day by oral route. active Not Available Not Available No t Available Bumex 0.5 mg tablet Take 1 tablet every day by oral route. 10/14 completed Not Available Not Available Not Available diazepam 5 mg tablet Take 1 tablet as needed by oral route. active Not Available Not Available No t Available amiodaron e 100 mg tablet Take 1 tablet every day by oral route. active Not Available Not Available No t Available iron active Not Available Not Availa ble Not Available baclofen 5 mg tablet Take 1 tablet every day by oral route at bedtime for 30 days. 2023 active PRN Not Available Not Available Not Avai lable aspirin 81 mg capsule Take 1 capsule every day by oral route. active baby Aspirin Not Available Not Available Not Available Vitals Date Recorded Body height Body temperature Oxygen saturation Oxygen saturation in Arterial blood by Pulse oximetry Heart rate Systolic blood pressure Diastolic blood pressure Provider Name and Address Organization Details Last Updated DateTime 152.4 cm 97.1 [degF] 96 % 96 % 77 /min 140 mm[Hg] 86 mm[Hg] Kurtis Ramos [facility] 14:55:53 Social History Question Answer Notes LastModified by Organizat ion Details LastModified Time Tobacco Smoking Status [facility] 12/26/2023 10:35:11 What Is Your Level Of Alcohol Consumption? None [email or web address] Information not available 12/26/2023 Are You Currently Employed? No [email or web address] Information not available 12/26/2023 What Was The Date Of Your Most Recent Tobacco Screening? 10/14/2024 [email or web address] Information not available 10/14/2024 What Is Your Relationship Status? [email or web address] Information not available 12/26/2023 Do You Use Any Illicit Or Recreational Drugs? No Information not available 12/26/2023 Has Tobacco Cessation Counseling Been Provided? No [email or web address] Information not available 12/26/2023 Do You Or Have You Ever Used Any Other Forms Of Tobacco Or Nicotine? No [email or web address] Information not available 12/26/2023 Sex: Unknown Functional Status None recorded. Mental Status None recorded. Family History Relationship Description Onset Age of this Age Resolved Age Notes LastModified by Organization Details LastModified Time Sister Family history of malignant neoplasm [email or web address] Not available 12/25 10:34:59 Medical History Condition Response Heart Problems Y Heart Attack ([place]) Arthritis Y Asthma Y High Cholesterol Y Hypertension Y Gynecological HistoryNo gynecological history recorded. Obstetrics History GPAL:G 0 P 0 0 0 0 Past Encounters Encounter ID Performer Location Encounter Start Date Encounter Closed Date Diagnosis/Indication Diagnosis SNOMED-CT Code Diagnosis ICD10 Code Diagnosis Note [id number] DANDRE KHAN PA-C PAIN MEDICINE [address] [place] [address] 10/14/2024 14:26:33 10/15/2024 05:36:51 Spinal stenosis of lumbar region 43264218 M48.062 Lumbar spondylosis 27162 0009 M47.816 Degenerati on of lumbar intervertebral disc 23939933 M51.362 Low back pain 097114675 M54.51 [id number] MURALI TRAMMELL MD [facility] [address] [facility] [address] PROFESSIO NAL CHARGES [address] [facility], [address] [place] [address] 09/17/2024 13:31:21 09/17/2024 15:04:27 Lumbar radiculopathy 009558735 M54.16 Health Concerns Section Related Observation LastModified by Organization Detai ls LastModified Time None Recorded Concern Status LastModified by Organization Details LastModified Time None Recorded Payers Encounter Date Sequence Insurance Name Policy Number Policy Fritz Covered Member ID Fritz Member ID Guarantor Name 10/14/2024 1 [place] Kathy R Barbara [id number] Kathy Barbara 10/14/2024 2 [employer] (MEDICARE SUPPLEMENT) Kathy Barbara [id number] Kathy Jimenez Notes Date Note Type Note Provider Name and Address Organization Details Recorded Time 10/14/2024 text/html Injection follow upReported bypatient.Locatio n:low back Most recent procedures:lumbar ROCK (LESI L3/4); date: (09/17/24) % of reliefpain relief 0% Duration of relief:ongoing Severity:improvin g; current pain 10; average pain 8/10 Woundinjection site healed well; no fever; no bleeding DANDRE KHAN PA-C [address] [place], [address], [facility] 10/14/2024 15:20:06 OBGyn Episode No OBEpisode recorded.
--- NOTE | 2024-12-06 09:00 | CT_ITS ---
FINAL REPORT TECHNIQUE: Axial images of the pelvis were obtained by computed tomography after the administration of IV contrast. Multiplanar reconstruction images were also reviewed. This study was performed with techniques to keep radiation doses as low as reasonably achievable, (ALARA). Individualized dose reduction techniques using automated exposure control or adjustment of mA and/or kV according to the patient's size were employed. CLINICAL HISTORY: lipoma COMPARISON: None FINDINGS: CT PELVIS WITH CONTRAST There are scattered diverticula throughout the sigmoid colon. Prominent mucosa of the mid descending colon is noted on images 1-14 of series 3. The urinary bladder is incompletely distended. Postoperative changes at the base of the cecum are consistent with prior appendectomy. Injection granulomas are noted in the superior right gluteal region. No discrete lipoma identified. No marker placed at area of interest. IMPRESSION: Questionable mucosal thickening mid descending colon, probably related to incomplete distention. Correlate with any relative clinical symptoms. Reviewed, Interpreted and Dictated by Juan Payan MD Transcribed by Margaret Sheridan Authenticated and [facility]
[2024-12-06] MEDS: SODIUM CHLORIDE 0.9% 10ML SYR (RAD ONLY) 10 ML IV (09:44)
[2024-12-06] MEDS: IOPAMIDOL-370 (76%);100ML BOTTLE 75 ML IV (09:44)
--- NOTE | 2024-12-06 09:45 | CT_ITS ---
FINAL REPORT CLINICAL HISTORY: lipoma. low back pain. COMPARISON: 06/30/2023 FINDINGS: CT LUMBAR SPINE WITH CONTRAST TECHNIQUE: Postcontrast axial images were obtained of the lumbar spine by computed tomography. Coronal and sagittal reconstruction process performed. This study was performed with techniques to keep radiation doses as low as reasonably achievable (ALARA). Individualized dose reduction techniques using automated exposure control or adjustment of mA and/or kV according to the patient's size were employed. FINDINGS: There is 20 degrees of lumbar scoliosis convex to the left. There is abnormal loss of height from L1-2 through L5-S1, most evident at L3-4 and L4-5. There is a minimal spondylolisthesis of L5 on S1. T12-L1: No significant disc bulge, spinal canal or neuroforaminal compromise. L1-2: There is a moderate diffuse disc bulge and endplate hypertrophy. There is mild spinal canal compromise. There is mild bilateral neuroforaminal narrowing. L1 2-3: There is a mild diffuse disc bulge and mild bilateral neuroforaminal narrowing. L3-4: There is endplate hypertrophy with moderate right neuroforaminal narrowing. L4-5: There is a moderate diffuse disc bulge and endplate hypertrophy. There is moderate to high-grade left neuroforaminal narrowing. There is moderate bilateral facet hypertrophy. L5-S1: There is a moderate diffuse disc bulge accentuated by spondylolisthesis. There is moderate right and moderate to high-grade left neuroforaminal narrowing. IMPRESSION: Diffuse disc bulges with neuroforaminal narrowing most evident on the left at L4-5 and L5-S1. Reviewed, Interpreted and Dictated by Juan Payan MD Transcribed by Katelyn Silva Authenticated and [facility][1]
== END 2024-12-06 23:59 | disposition home or self-care (01) ==
LOC: RAD 08:49
PROVIDERS: PCP Internal Medicine; Visit Provider Surgery
DX: D17.1 Benign lipomatous neoplasm of skin and subcutaneous tissue of trunk (principal)
CPT/HCPCS: 72132; 72193; Q9967

== ENCOUNTER 2025-02-18 10:29 | Emergency (ER) | payer MEDICARE, SELFPAY ==
--- OUTSIDE RECORDS SUMMARY | 2024-12-13 05:00 | XMS_ITS | Encounter Summary ---
Author Organization [employer] ([place], [place], [place], [place]) Address [address] [place] [address] Care Team Providers Care Balance Engineer Name Role Phone Alfred Cantu MD Primary Care Provider [phone] Lyndsey Key MD Unavailable [phone] Vik Corcoran MD Unavailable Reason for Visit * Reason Comments Pacemaker /ICD Home Monitoring Encounter Details Date Type Department Care Team (Late st Contact Info) Description 12/13/2024 5:00 AM EDT Clinical Support [facility] Electrophysiology [address] [place] [phone] [place] [address] [place] [address] [address] [place] [address] Encounter for adjustment or management of cardiac device (Primary Dx); A-fib; parosyxmal; NICM (nonischemic cardiomyopathy); Chronic systolic congestive heart failure (HCC); AICD (automatic cardioverter/defibr illator) present Social History Tobacco Use Types Packs/Day Years Used Date Smoking Tobacco: Never Smokeless Tobacco: Never Alcohol Use Standard Drinks/Week Comments Never 0 (1 standard drink = 0.6 oz pur e alcohol) Family and Community Support Answer Sebastian e Recorded Help with Day to Day Activities Not on file 08/29/2023 Feeling Lonely or Isolated Not on file 08/29 Educational Attainment Answer Date Ezra rded Speak language other than Macedonian at home Not on file 08/29/2023 Want help with school or training Not on file 08/29/2023 Substance Use Answer Date Recorded Used prescription meds for non-medical reasons N ot on file 08/29/2023 Used illegal drugs past 12 months Not on file 08/29/2023 Comments Unknown Sex and Gender Information Value Date Recorded Sex Assigned at Not on file Legal Sex Female 1:15 PM CDT Gender Identity Not on file Sexual Orientation Not on file documented as of this encounter Plan of Treatment Upcoming Encounters Date Type Department Care Team (Late st Contact Info) Description 08/23/2025 12:45 PM EST Office Visit [facility] Electrophysiology [address] [place] [phone] [place] [address] [place] [address] [address] [place], [place] [phone] documented as of this encounter Visit Diagnoses Diagnosis Encounter for adjustment or management of cardiac device- Primary A-fib; parosyxmal Atrial fibrillation NICM (nonischemic cardiomyopathy) Chronic systolic congestive heart failure (HCC) AICD (automatic cardioverter/defibrillator) present Automatic implantable cardiac defibrillator in situ documented in this encounter Care Teams Balance Engineer Relationship Specialty Start Date End Date Alfred Cantu MD [address] [place] [address] [place] [address] PCP - General General Internal Medicine 08/29/22 [place] [address] [place] [address] [phone] Manager [employer] Interventional Cardiology 08/29/22 Vik Corcoran MD [address] [facility] [address] [place], [place] [phone] Manager [employer] Electrophysiology 05/19/24 documented as of this encounter
--- OUTSIDE RECORDS SUMMARY | 2025-01-14 06:00 | XMS_ITS | Encounter Summary ---
Author Organization [employer] ([place], [place], [place], [place]) Address [address] [place] [address] Care Team Providers Care Press Cutter Name Role Phone Alfred Cantu MD Primary Care Provider [phone] Lyndsey Key MD Unavailable [phone] Vik Corcoran MD Unavailable Reason for Visit * Reason Comments Pacemaker /ICD Home Monitoring Encounter Details Date Type Department Care Team (Late st Contact Info) Description 01/14/2025 6:00 AM EDT Clinical Support [facility] Electrophysiology [address] [place] [phone] Baron Moreno MD [address] [facility] [address] [place] [address] Encounter for adjustment or management of cardiac [...] Date Ezra rded Speak language other than Uzbek at home Not on file 08/29/2023 Want [...] Description 08/23/2025 12:45 PM EST Office Visit [facility] Electrophysiology [address] [place] [phone] [place] [address] [place] [address] [address] [place], [place] [phone] documented as of this encounter Visit Diagnoses Diagnosis Encounter for adjustment or management of cardiac device- Primary A-fib; parosyxmal Atrial fibrillation NICM (nonischemic cardiomyopathy) Chronic systolic congestive heart failure (HCC) AICD (automatic cardioverter/defibrillator) present Automatic implantable cardiac defibrillator in situ documented in this encounter Care Teams Press Cutter Relationship Specialty Start Date End Date Alfred Cantu MD [address] [place] [address] [place] [address] PCP - General General Internal Medicine 08/29/22 [place] [address] [place] [address] [phone] French Tutor Interventional Cardiology 08/29/22 Vik Corcoran MD [address] [facility] [address] [place], [place] [phone] French Tutor Electrophysiology 05/19/24 documented as of this encounter
--- OUTSIDE RECORDS SUMMARY | 2025-02-17 10:45 | XMS_ITS | Encounter Summary ---
Author Organization [email or web address] ([place], [place], [place], [place]) Address [address] [place] [address] Care Team Providers Care Residential Care Officer Name Role Phone Alfred Cantu MD Primary Care Provider [phone] Lyndsey Key MD Unavailable Gali Corcoran MD Unavailable Reason for Referral * Echocardiography (Routine) - Closed Specialty Diagnoses / Procedures Referred By Asher t Referred To Contact Cardiology Diagnoses Dilated cardiomyopathy (HCC) Procedures ECHO COMPLETE (DOPPLER / COLOR) [place] [address] [place] [address] [address] [place] [address] Phone: tel: fax: [facility] [address] [place] [phone] Phone: tel: fax: Referral ID Status Reason Start Date Expiration Date Visits Re quested Visits Authorized [id number] Closed 02/17/2025 02/17/2026 1 1 Reason for Visit * Reason Comments 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 - ref by Yesi and she has a Watchm and Has watchman and MDT device and needs clearance Encounter Details Date Type Department Care Team (Late st Contact Info) Description 02/17/2025 10:45 AM EDT Office Visit [facility] Electrophysiology [address] [place] [id number] Gali Corcoran MD [address] [facility] [address] [place] [address] Encounter for adjustment or management of cardiac device (Primary Dx); Dilated cardiomyopathy (HCC) Social History Tobacco Use Types Packs/Day Years Used Date Smoking Tobacco: Never Smokeless Tobacco: Never Tobacco Cessation:Counseling Given: Not Answered Alcohol Use Standard Drinks/Week Comments Never 0 (1 standard drink = 0.6 oz pur e alcohol) Family and Community Support Answer Sebastian e Recorded Help with Day to Day Activities Not on file 08/29/2023 Feeling Lonely or Isolated Not on file 08/29 Educational Attainment Answer Date Ezra rded Speak language other than Indonesian at home Not on file 08/29/2023 Want help with school or training Not on file 08/29/2023 Substance Use Answer Date Recorded Used prescription meds for non-medical reasons N ot on file 08/29/2023 Used illegal drugs past 12 months Not on file 08/29/2023 Comments No Sex and Gender Information Value Date Recorded Sex Assigned at Not on file Legal Sex Female 1:15 PM CDT Gender Identity Not on file Sexual Orientation Not on file documented as of this encounter Last Filed Vital Signs Vital Sign Reading Time Taken Comments Blood Pressure 130/80 02/17/2025 11:34 AM EDT Pulse 82 02/17/2025 11:34 AM EDT Temperature - - Respiratory Rate - - Oxygen Saturation 96% 02/17/2025 11:34 AM EDT Inhaled Oxygen Concentration - - Weight 78.3 kg (172 lb 9.6 oz) 02/17/2025 11:34 AM EDT Height 152.4 cm (5') 02/17/2025 11:34 AM EDT Body Mass Index 33.71 02/17/2025 11:34 AM EDT documented in this encounter Progress Notes * Gali Corcoran MD - 02/17/2025 10:45 AM EDT Chief Complaint/Reason for Consult: Chief Complaint Patient presents with 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 amLODIPine (NORVASC) 2.5 MG tablet Take 1 tablet (2.5 mg total) by mouth daily. aspirin 81 MG EC tablet 1 Tab, Oral, Tab, Daily, # 30 Tab, 0 Refill(s), other reason (Rx) [id number] ORAL Take by mouth. carvediloL (COREG) 12.5 MG tablet 1 Tab, Oral, Tab, BID, # 60 Tab, 0 Refill(s) diazePAM (VALIUM) 5 MG tablet Take 1 tablet (5 mg total) by mouth every 6 (six) hours as needed. fluticasone propion-salmeteroL (ADVAIR) 500-50 mcg/dose diskus inhaler Inhale 1 puff by mouth 2 (two) times daily. omeprazole (PriLOSEC OTC) 20 MG tablet Take 1 tablet (20 mg total) by mouth daily. potassium chloride (K-TAB) 20 mEq CR tablet Take 1 tablet (20 mEq total) by mouth daily. No current facility-administered medications on file prior to visit. Problem list and diagnosis Patient Active Problem List Diagnosis A-fib; parosyxmal HTN (hypertension) SAKSHI (obstructive sleep apnea) LBBB (left bundle branch block) NICM (nonischemic cardiomyopathy) HLD (hyperlipidemia) Asthma GERD (gastroesophageal reflux disease) Nonrheumatic mitral (valve) insufficiency Obesity Chronic systolic congestive heart failure (HCC) AICD (automatic cardioverter/defibrillator) present Encounter for adjustment or management of cardiac device 1. Encounter for adjustment or management of cardiac device ECG 12 lead Past Medical History: Past Medical History: Diagnosis Date A-fib; parosyxmal Watchman device in-situ Asthma 10/03/2022 Encounter for adjustment or management of cardiac device 08/20/2024 GERD (gastroesophageal reflux disease) 10/03/2022 HLD (hyperlipidemia) HTN (hypertension) LBBB (left bundle branch block) NICM (nonischemic cardiomyopathy) BIV-ICD in-situ - Medtronic Nonrheumatic mitral (valve) insufficiency 10/03/2022 Obesity 10/03/2022 SAKSHI (obstructive sleep apnea) Recurrent falls Past Surgical History: Past Surgical History: Procedure Laterality Date APPENDECTOMY BIV-ICD; Medtronic 10/23/2018 non-dependent CARDIAC CATHETERIZATION 07/08/2017 Normal Coronary arteries. Normal right heart pressures. CHOLECYSTECTOMY Devated septum repair Watchman 08/16/2021 27 mm Watchman device; Left atrial appendage closure. Allergies: Allergies Allergen Reactions Latex Sulfa (Sulfonamide Antibiotics) Social History: Tobacco Use Smoking status: Never Smokeless tobacco: Never Substance Use Topics Alcohol use: Never Drug use: Never Marital Status: Family History: Family History Problem Relation Name Age of Onset Cancer Father Leukemia Review of Systems: Constitutional: Negative except as documented in history of present illness. Eye: Negative except as documented in history of present illness. Ear/Nose/Mouth/Throat: Negative except as documented in history of present illness. Respiratory: Negative except as documented in history of present illness. Cardiovascular: Negative except as documented in history of present illness. Gastrointestinal: Negative except as documented in history of present illness. Genitourinary: Negative except as documented in history of present illness. Hematology/Lymphatics: Negative except as documented in history of present illness. Endocrine: Negative except as documented in history of present illness. Immunologic: Negative except as documented in history of present illness. Musculoskeletal: Negative except as documented in history of present illness. Integumentary: Negative except as documented in history of present illness. Neurologic: Negative except as documented in history of present illness. Psychiatric: Negative except as documented in history of present illness. Physical Exam: Blood pressure 130/80, pulse 82, height 1.524 m (5'), weight 78.3 kg (172 lb 9.6 oz), SpO2 96%. General: Alert and oriented. Eye: Pupils are equal, round and reactive to light. HENT: Normocephalic. Neck: Supple, Non-tender, No carotid bruit, No jugular venous distention. Respiratory: Lungs are clear to auscultation, Respirations are non-labored. Cardiovascular: regular rhythm, No murmur, Good pulses equal in all extremities. Jugular Veins: Not distended. Gastrointestinal: Soft, Non-tender, Non-distended, Normal bowel sounds. Musculoskeletal: Normal range of motion. Integumentary: Warm, Dry, [place]. Neurologic: No obvious focal deficit Psychiatric: Cooperative, Appropriate mood & affect. Labs, Imaging, and Other Studies: Echo Results (last 7 days) No results found for the last 168 hours. No results found for: K Lab Results Component Value Date CREATININE 0.90 08/16/2021 No results found for: EGFR , GFR Lab Results Component Value Date HGB 12.8 08/16/2021 No results found for: PLT Lab Results Component Value Date TSH 0.491 10/31/2018 Magnesium Level Date Value Ref Range Status 10/30/2018 1.8 1.5 - 2.4 mg/dL Final AST Date Value Ref Range Status 10/31/2018 21 5 - 37 Units/Liter Final Comment: [facility] has become aware of sulfasalazine and sulfapyridine drug interference in the assays ALT, AST, T4, CKMB, glucose, and ammonia. The probability of misinterpretation of results for the assays is remote and would be limited to scenarios where a patient has taken the drug and had a blood sample drawn before clearance of the drug to a level that does not interfere with laboratory testing. Venipuncture should occur prior to administration of the drug. ALT Date Value Ref Range Status 10/31/2018 21 13 - 56 Units/Liter Final Comment: [facility] has become aware of sulfasalazine and sulfapyridine drug interference in the assays ALT, AST, T4, CKMB, glucose, and ammonia. The probability of misinterpretation of results for the assays is remote and would be limited to scenarios where a patient has taken the drug and had a blood sample drawn before clearance of the drug to a level that does not interfere with laboratory testing. Venipuncture should occur prior to administration of the drug. HPI Medtronic BIV ICD implant on 10/23/2018 here because she wants to have a back stimulator. Assessment and Plan: Kathy Jimenez is a 84 y.o. female, referred by Dr Key I saw her once in 2019. 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 She saw Dr Key in the past for shortness ofbreath. An echocardiogram was never done they live about [place] away. She also have a back stimulator. Will check an echocardiogram however she is at low risk procedure for a low cardiac risk so no further testing needed. Device was reprogrammed extensively allowing preferential RV conduction and rest rate. Follow-up in 6 months. Signed Gali Corcoran MD documented in this encounter Plan of Treatment Upcoming Encounters Date Type Department Care Team (Late st Contact Info) Description 08/23/2025 12:45 PM EST Office Visit [facility] Electrophysiology [address] [place] [phone] Gali Corcoran MD [address] [place] [address] [address] [place] [address] documented as of this encounter Procedures Procedure Name Priority Date/Time Associated Diagnosis Comments [id number] 12-LEAD Routine 02/17/2025 11:34 AM EDT Encounter for adjustment or management of cardiac device documented in this encounter Results * ECHO COMPLETE (DOPPLER / COLOR) WO CONTRAST (02/17/2025 2:20 PM EDT) Anatomical Region Laterality Modality Heart Vascular Ultraso und 02/17/2025 1:55 PM EDT Narrative 02/17/2025 5:56 PM EDT TRANSTHORACIC ECHOCARDIOGRAPHY REPORT Demographics Patient Name: RAUL Plasencia : 1940 Age: 84 year(s) Corporate ID Number: [id number] Gender Female 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 Patient Status: Routine OP Study Location: Echo LabTechnical Quality: Good visualization History/Tech Notes: Indication: Dilated cardiomyopathy I42.0 Impression: ######################################## Normal sized left ventricle. Normal left ventricular wall thickness. Visually estimated ejection fraction 55% +/- 5%. Abnormal systolic strain pattern. Normal left ventricular diastolic function Moderate (2+) mitral regurgitation. ######################################## Measurements Summary: LVEDd: 5 cm LVESd: 3.04 cm IVSEd: 0.88 cm AO Root:3.01 cm LVPWd: 1.09 cm Contractility Score Normal Left Ventricular contractility was noted. LV regional wall motion: (0-Not visualized 1-Normal 2-Hypokinesis 3-Akinesis 4-Dyskinesis 5-Aneurysm) Left Ventricle Peak E-wave: 1.01 Peak A-wave: 0.81 m/s E/A ratio: 1.24 m/s Volume [id number] LV length: 7.14 cm ml Volume nxqzampn66.22 ml LVOT diameter: 1.68 cm Normal sized left ventricle. Normal left ventricular wall thickness. Visually estimated ejection fraction 55% +/- 5%. Abnormal systolic strain pattern. Normal left ventricular diastolic function. No left ventricular masses or thrombi. Right Ventricle Diastolic dimension: 3.32 cm RV systolic pressure: 40.5 mmHg Normal sized right ventricle. Normal TAPSE c/w normal right ventricular function Left Atrium LA dimension: 3.4 cm LA volume:57.09 ml LA/Aorta: 1.13 Normal sized left atrium. Normal left atrial volume index 31ml/m^2. Intact atrial septum. No atrial mass or thrombus. Right Atrium Normal sized right atrium. Intact atrial septum. No atrial mass or thrombus. Pacer wire in right atrium. Mitral Valve Deceleration time: Area PHT: 2.89 cm^2 Mean velocity: 244.19 msec P1/2t: 76.01 msec 0.77 m/s Area (continuity): Mean gradient: 1.17 cm^2 2.83 mmHg Peak gradient: 6.77 mmHg Thickened mitral valve leaflets. Moderate (2+) mitral regurgitation. Unable to obtain PISA ERO. No mitral stenosis. No masses or vegetations seen. Aortic Valve AI P1/2t: 868.21 msec LVOT VTI: 20.35 cm Deceleration time: 2993.84 msec Mildly thickend free edges of the aortic valve leaflets. Mild aortic valve regurgitation. No aortic stenosis. No masses or vegetations seen. Tricuspid Valve TR velocity: 3.06 m/s TR gradient: 37.50938 mmHg Estimated RAP: 3 mmHg RVSP: 40.5 mmHg Structurally normal tricuspid valve. Mild (1+) tricuspid regurgitation. Mild pulmonary hypertension. RVSP 40 mmHg. No tricuspid stenosis. No masses or vegetations seen. Pulmonic Valve Acceleration time: 102.76 msec PASP: 40.5 mmHg Structurally normal pulmonic valve. Trace pulmonary valve regurgitation. No pulmonic stenosis. No masses or vegetations seen. Great Vessels Aorta Aortic Root: 3.01 cm LVOT Diameter: 1.68 cm Visualized thoracic aorta is normal. Normal aortic root. No evidence of dissection. Normal IVC with appropriate collapse. Pericardium / Pleura No pericardial effusion. 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 Patient Status: Routine OP Study Location: Echo LabTechnical Quality: Good visualization History/Tech Notes: Indication: Dilated cardiomyopathy I42.0 Impression: ######################################## Normal sized left ventricle. Normal left ventricular wall thickness. Visually estimated ejection fraction 55% +/- 5%. Abnormal systolic strain pattern. Normal left ventricular diastolic function Moderate (2+) mitral regurgitation. ######################################## Measurements Summary: LVEDd: 5 cm LVESd: 3.04 cm IVSEd: 0.88 cm AO Root:3.01 cm LVPWd: 1.09 cm Contractility Score Normal Left Ventricular contractility was noted. LV regional wall motion: (0-Not visualized 1-Normal 2-Hypokinesis 3-Akinesis 4-Dyskinesis 5-Aneurysm) Left Ventricle Peak E-wave: 1.01 Peak A-wave: 0.81 m/s E/A ratio: 1.24 m/s Volume [id number] LV length: 7.14 cm ml Volume aihkszyr21.22 ml LVOT diameter: 1.68 cm Normal sized left ventricle. Normal left ventricular wall thickness. Visually estimated ejection fraction 55% +/- 5%. Abnormal systolic strain pattern. Normal left ventricular diastolic function. No left ventricular masses or thrombi. Right Ventricle Diastolic dimension: 3.32 cm RV systolic pressure: 40.5 mmHg Normal sized right ventricle. Normal TAPSE c/w normal right ventricular function Left Atrium LA dimension: 3.4 cm LA volume:57.09 ml LA/Aorta: 1.13 Normal sized left atrium. Normal left atrial volume index 31ml/m^2. Intact atrial septum. No atrial mass or thrombus. Right Atrium Normal sized right atrium. Intact atrial septum. No atrial mass or thrombus. Pacer wire in right atrium. Mitral Valve Deceleration time: Area PHT: 2.89 cm^2 Mean velocity: 244.19 msec P1/2t: 76.01 msec 0.77 m/s Area (continuity): Mean gradient: 1.17 cm^2 2.83 mmHg Peak gradient: 6.77 mmHg Thickened mitral valve leaflets. Moderate (2+) mitral regurgitation. Unable to obtain PISA ERO. No mitral stenosis. No masses or vegetations seen. Aortic Valve AI P1/2t: 868.21 msec LVOT VTI: 20.35 cm Deceleration time: 2993.84 msec Mildly thickend free edges of the aortic valve leaflets. Mild aortic valve regurgitation. No aortic stenosis. No masses or vegetations seen. Tricuspid Valve TR velocity: 3.06 m/s TR gradient: 37.79341 mmHg Estimated RAP: 3 mmHg RVSP: 40.5 mmHg Structurally normal tricuspid valve. Mild (1+) tricuspid regurgitation. Mild pulmonary hypertension. RVSP 40 mmHg. No tricuspid stenosis. No masses or vegetations seen. Pulmonic Valve Acceleration time: 102.76 msec PASP: 40.5 mmHg Structurally normal pulmonic valve. Trace pulmonary valve regurgitation. No pulmonic stenosis. No masses or vegetations seen. Great Vessels Aorta Aortic Root: 3.01 cm LVOT Diameter: 1.68 cm Visualized thoracic aorta is normal. Normal aortic root. No evidence of dissection. Normal IVC with appropriate collapse. Pericardium / Pleura No pericardial effusion. Gali Corcoran MD CV ECHO ORDERABLES Final Result * ECG 12 lead (02/17/2025 11:34 AM EDT) Gali Corcoran MD ECG ORDERABLES Final Result documented in this encounter Visit Diagnoses Diagnosis Encounter for adjustment or management of cardiac device- Primary Dilated cardiomyopathy (HCC) Other primary cardiomyopathies Dilated cardiomyopathy (HCC) Other primary cardiomyopathies documented in this encounter Care Teams Residential Care Officer Relationship Specialty Start Date End Date Alfred Cantu MD [address] [place] [address] [place] [address] PCP - General General Internal Medicine 08/29/22 [place] [address] [place] [address] [address] [place] [address] Manager Continuous Improvement Interventional Cardiology 08/29/22 [place] [address] [place] [address] [address] [place] [address] Manager Continuous Improvement Electrophysiology 05/19/24 documented as of this encounter
--- OUTSIDE RECORDS SUMMARY | 2025-02-17 13:00 | XMS_ITS | Encounter Summary ---
Author Organization [employer] ([place], [place], [place], [place]) Address [address] [place] [address] Care Team Providers Care Housing Inspectors Name Role Phone Alfred Cantu MD Primary Care Provider [phone] Lyndsey Key MD Unavailable [phone] Gali Corcoran MD Unavailable Reason for Referral * Echocardiography (Routine) - Closed Specialty Diagnoses / Procedures Referred By Contac t Referred To Contact Cardiology Diagnoses Dilated cardiomyopathy (HCC) Procedures ECHO COMPLETE (DOPPLER / COLOR) W OR WO CONTRAST Gali Corcoran MD [address] [facility] [place] [address] Phone: tel: fax: [facility] Non-Invasive Cardiology [address] [place] [id number] Phone: tel: fax: Referral ID Status Reason Start Date Expiration Date Visits Re quested Visits Authorized [id number] Closed 02/17/2025 02/17/2026 1 1 Reason for Visit * Echocardiography (Routine) - Closed Specialty Diagnoses / Procedures Referred By Contac t Referred To Contact Cardiology Diagnoses Dilated cardiomyopathy (HCC) Procedures ECHO COMPLETE (DOPPLER / COLOR) W OR WO CONTRAST Gali Corcoran MD [address] [place] [address] Phone: tel: fax: [facility] Non-Invasive Cardiology [address] [place] [address] Phone: tel: fax: Referral ID Status Reason Start Date Expiration Date Visits Re quested Visits Authorized [id number] Closed 02/17/2025 02/17/2026 1 1 Encounter Details Date Type Department Care Team (Late st Contact Info) Description 02/17/2025 1:00 PM EDT - 02/17/2025 11:59 PM EDT Hospital Encounter [facility] Non-Invasive Cardiology [address] [place] [address] Gali Corcoran MD [address] [place] [address] [address] [place] [address] Dilated cardiomyopathy (HCC) Discharge Disposition: Home or Self Care Social History Tobacco Use Types Packs/Day Years [...] Date Ezra rded Speak language other than Urdu at home Not on file 08/29/2023 Want [...] on file documented as of this encounter Medications at Time of Discharge amiodarone (PACERONE) 200 MG tablet Take 1 tablet (200 mg total) by mouth daily Take .5 tablet daily . 07/24/2021 amLODIPine (NORVASC) 2.5 MG tablet Take 1 tablet (2.5 mg total) by mouth daily. aspirin 81 MG EC tablet 1 Tab, Oral, Tab, Daily, # 30 Tab, 0 Refill(s), other reason (Rx) 10/02/2021 CALCIUM-MAGNESIUM -ZINC ORAL Take by mouth. carvediloL (COREG) 12.5 MG tablet 1 Tab, Oral, Tab, BID, # 60 Tab, 0 Refill(s) 08/16/2021 diazePAM (VALIUM) 5 MG tablet Take 1 tablet (5 mg total) by mouth every 6 (six) hours as needed. fluticasone propion-salmetero L (ADVAIR) 500-50 mcg/dose diskus inhaler Inhale 1 puff by mouth 2 (two) times daily. omeprazole (PriLOSEC OTC) 20 MG tablet Take 1 tablet (20 mg total) by mouth daily. potassium chloride (K-TAB) 20 mEq CR tablet Take 1 tablet (20 mEq total) by mouth daily. documented as of this encounter Plan of Treatment Upcoming Encounters Date Type Department Care Team (Late st Contact Info) Description 08/23/2025 12:45 PM EST Office Visit [facility] Electrophysiology [address] [place] [address] Gali Corcoran MD [address] [place] [address] [address] [place] [address] documented as of this encounter Procedures Procedure Name Priority Date/Time Associated Diagnosis Comments ECHO COMPLETE (DOPPLER / COLOR) WO CONTRAST Routine 02/17/2025 2:20 PM EDT Dilated cardiomyopathy (HCC) documented in this encounter Results * ECHO COMPLETE (DOPPLER / COLOR) WO CONTRAST (02/17/2025 2:20 PM EDT) Anatomical Region Laterality Modality Heart Vascular Ultraso und 02/17/2025 1:55 PM EDT Narrative 02/17/2025 5:56 PM EDT TRANSTHORACIC ECHOCARDIOGRAPHY REPORT Demographics Patient Name: RAUL Plasencia : 1940 Age: 84 year(s) Corporate ID Number: [id number] Gender Female Armored Service Technician: Julita Jjty Height: 62 inches [facility] Referring Physician: GALI CORCORAN MD Weight: 172 [...] 0.81 m/s E/A ratio: 1.24 m/s Volume [id number] LV length: 7.14 cm ml Volume [id number] ml LVOT diameter: 1.68 cm Normal sized [...] Valve TR velocity: 3.06 m/s TR gradient: 37.48001 mmHg Estimated RAP: 3 mmHg RVSP: 40.5 [...] 1940 Age: 84 year(s) Corporate ID Number: [id number] Gender Female Armored Service Technician: Julita Bravo Height: 62 inches [facility] Referring Physician: GALI CORCORAN MD Weight: 172 pounds Interpreting GLAI CORCORAN MD BMI: 31.46 kg/m^2 Physician: Date [...] 0.81 m/s E/A ratio: 1.24 m/s Volume [id number] LV length: 7.14 cm ml Volume [id number] ml LVOT diameter: 1.68 cm Normal sized [...] Valve TR velocity: 3.06 m/s TR gradient: 37.37937 mmHg Estimated RAP: 3 mmHg RVSP: 40.5 [...] Corcoran MD CV ECHO ORDERABLES Final Result documented in this encounter Visit Diagnoses Diagnosis Dilated cardiomyopathy (HCC) Other primary cardiomyopathies documented in this encounter Care Teams Housing Inspectors Relationship Specialty Start Date End Date Alfred Cantu MD [address] [place] [address] [place] [address] PCP - General General Internal Medicine 08/29/22 Lyndsey Key MD [address] [place] [address] [address] Project Control Analyst Interventional Cardiology 08/29/22 [place] [address] [place] [address] [address] [place] [address] Project Control Analyst Electrophysiology 05/19/24 documented as of this encounter
[2025-02-18] VITALS (8 sets, daily range): BP systolic 159–192; BP diastolic 80–125; PULSE 62–82; RESP 14–15; TEMP 36.8–37.1; O2SAT 94–97; BMI 33.5
--- OUTSIDE RECORDS SUMMARY | 2025-02-18 10:40 | XMS_ITS | Encounter Summary ---
Author Organization [employer] ([place], [place], [place], [place]) Address [address] [place] [address] Care Team Providers Care Director E Learning Name Role Phone Alfred Cantu MD Primary Care Provider [phone] Lyndsey Key MD Unavailable [phone] Vik Corcoran MD Unavailable Encounter Details Date Type Department Care Team (Late st Contact Info) Description 11/02/2018 Transcribed Document [facility] [place] [facility] [place] [address] ProviderRashard MD [address] [place] [id number] Social History Tobacco Use Types Packs/Day Years Used Date Smoking Tobacco: Never Assessed Comments Unknown Sex and Gender Information Value Date Recorded Sex Assigned at Not on file Legal Sex Female 1:15 PM CDT Gender Identity Not on file Sexual Orientation Not on file documented as of this encounter Miscellaneous Notes * Cerner Conversion Note - Rashard ProviderMD - 11/02/2018 12:58 PM CDT [address] , [place] [address] Patient Copy Patient Information: Name: KATHY JIMENEZ Current Date: 11/02/2018 12:58:33 : 1940 Patient Address: [address] [place], [place] [address] [address] Patient Attending Physician: CARMELLA MEI MD-INT Primary Care Provider: HARPREETY, NOT LISTED Primary Care Provider Phone: Discharge Diagnosis: Weight on Admission: 194 lb, 1 oz Weight at Discharge: 186 lb, 3 oz Comment: Follow-up Instructions: With: Address: When: CLARE LIVINGSTON [address] [facility], [address] [place], [place] [id number] Business (1) Within 1 week With: Address: When: KASH BUTTS [address] [facility], [address] [place] [id number] Business (1) Within 2 to 4 weeks Comments: Bring Ins Card, Photo ID, Ins Co-pay Bring discharge instructions with you Call for follow up appointment Return with blood work With: Address: When: Follow up with primary care provider Within 1 week Comments: Please call to make a 1 week follow-up appointment with your family MD. If you need assistance finding a family MD please call [phone]. With: Address: When: NAZANIN NAVA [address] [facility] [place], [place] [id number] Business (1) 9:00 AM Comments: You will have an incision check and device interrogation at this appointment. Discharge Instructions: Diet after Discharge: Heart healthy diet Fluid Restriction after Discharge: 2000 mL Activity after Discharge: As tolerated, Other: Refer to Discharge Device Instructions from Dr. Galeas. Driving after Discharge: Other: DO NOT drive if you feel dizzy or weak. Showering/Bathing:May shower, No tub bathing, soaking, or swimming Notify Provider of: fever greater than 101.5, increased shortness of air at rest, redness at the incision site or bleeding that you can not get to stop. Wound/Incision Care after Discharge: Keep operative site/wound site clean and dry, Other: Remove dressing after 5 days. Wound/Incision Care after Discharge Comment: Cleanse with antibacterial soap and water after the dressing Medical Equipment for Home Use: [facility] for bedside commode and nebulizer [phone] Home Health Services: [facility] [phone] Immunizations Documented During Stay: No Immunizations Found Pain Management: Over the counter medication as directed. Worker's Compensation Paperwork Completed: No Special Instructions: STOP the following medications: STOP Azithromycin (zpack) STOP Diclofenac STOP Triamterene / HCTZ STOP Losartan STOP Coreg 25 mg tablets --- Dose decreased to 12.5 mg tabs Heart Failure Discharge Instructions (if any): Ejection Fraction (sometimes the heart pumps in a normal range, but the heart is stiff and the heart hagen are thick. This makes it hard for the heart to meet the blood flow needs of the body. Ejection Fraction is a measurement of how well the heart is pumping. Normal range is 50-75%): 25 % Daily Weight: Weigh yourself daily at the same time and record,Contact doctor if you gain 3 pounds overnight or 5 pounds in 1 week,Take weight log to doctor visits Heart Failure Activity: It is important to keep as active as you can and pace yourself with rest periods Smoking/Tobacco Use: Do not smoke, Smoking cessation phone number When to Call the Doctor: Increased weight of 3 pounds or more in 1 day or 5 pounds in 1 week, Increased cough, extreme tiredness, Increased shortness of breath, Having to prop yourself up in bed with pillows to breathe easier, Chest pain, Feeling bloated, full or nauseated or a decrease in appetite, New or increased swelling in ankles, lower legs or belly, Dizziness, like you might pass out Stroke Related Discharge Instructions (if any): Warfarin Related Discharge Instructions (if any): Final Medication List: [facility], [place] [address], [phone] amiodarone (amiodarone 200 mg oral tablet) 2 Tablet(s) Oral Two Times A Day for 7 Day(s). Refills: 0. Patient Instructions: Use this dose x 7 days, then decrease to 200 mg once daily amiodarone (amiodarone 200 mg oral tablet) 1 Tablet(s) Oral Every Day for 30 Day(s). Refills: 0. Patient Instructions: Start this dose after 7 days of 400 mg twice daily apixaban (Eliquis 5 mg oral tablet) 1 Tablet(s) Oral Interval Every 12 Hours. Refills: 0. carvedilol (Coreg 12.5 mg oral tablet) 1 Tablet(s) Oral Two Times A Day. Refills: 0. Patient Instructions: NEW DOSE doxycycline (doxycycline hyclate 100 mg oral capsule) 1 Capsule(s) Oral Two Times A Day for 5 Day(s). Refills: 0. lisinopril (lisinopril 5 mg oral tablet) 1 Tablet(s) Oral Every Day. Refills: 0. Printed Prescriptions albuterol-ipratropium (DuoNeb 0.5 mg-2.5 mg/3 mL inhalation solution) 3 Milliliter(s) Nebulized Inhalation Every 6 Hours as needed Dyspnea for 7 Day(s). Refills: 0. Other Medications albuterol (ProAir HFA 90 mcg/inh inhalation aerosol) 2 Puff(s) Inhalation Four Times A Day as needed for wheezing. aspirin (aspirin 81 mg oral tablet) 1 Tablet(s) Oral Every Day. diazePAM (diazePAM 5 mg oral tablet) 1 Tablet(s) Oral Every Day as needed for anxiety. fluticasone-salmeterol (Advair Diskus 250 mcg-50 mcg inhalation powder) 1 Puff(s) Inhalation Two Times A Day. guaiFENesin (Mucinex 600 mg oral tablet, extended release) 2 Tablet(s) Oral Two Times A Day for 5 Day(s). Refills: 0. montelukast (Singulair 10 mg oral tablet) 1 Tablet(s) Oral Every Day. omeprazole (omeprazole 20 mg oral delayed release capsule) 2 Capsule(s) Oral Every Day. Patient Allergies: statins; sulfa drugs; Latex Medication Instructions: Take your medications faithfully. Do NOT skip medication. Do NOT stop taking medications without the direction of a physician. Carry a list of your medications with you at all times, and take this medication list with you to your first follow up visit. Report any side effects. Avoid herbal remedies unless discussed with your physician. As part of your treatment plan, your physician may have prescribed a limited course of a controlled substance. This medication may be given to help people with moderate or severe pain or for other medical conditions, but there are risks involved with treatment. Common side effects may include nausea, constipation, drowsiness, sweating, itching, dry mouth, and rash. More serious side effects may include cognitive and motor impairment, like problems with thinking, concentrating, alertness, and movement (e.g. slowed reflexes), and driving and operating heavy machinery can be dangerous. It is important for you to talk to your physician if you have these side effects or questions. These controlled substances can produce physical dependence and be habit-forming if taken for an extended period of time, which means that the body has gotten used to them and may experience withdrawal symptoms if they are abruptly stopped. Withdrawal symptoms can include runny nose, sweating, goose bumps, diarrhea, abdominal cramping, rapid heartbeat, difficulty sleeping, and nervousness. Patient education materials: Biventricular Pacemaker Implantation, Care After Introduction Refer to this sheet in the next few weeks. These instructions provide you with information about caring for yourself after your procedure. Your health care provider may also give you more specific instructions. Your treatment has been planned according to current medical practices, but problems sometimes occur. Call your health care provider if you have any problems or questions after your procedure. What can I expect after the procedure? After the procedure, it is common to have:??? Mild pain or soreness in your chest for several days. ??? A small amount of blood or clear fluid coming from your incision. ??? A slight bump in your chest where the pulse generator was placed. You may be able to feel the generator under your skin. This is normal. Follow these instructions at home: Medicines??? Take zmxy-cno-vuoescl and prescription medicines only as told by your health care provider. ??? Do nottake any new medicines without asking your health care provider first. ??? If you were prescribed an antibiotic medicine, take it as told by your health care provider. Do not stop taking the antibiotic even if you start to feel better. Incision care ??? Keep your incision area clean and dry. ??? Follow instructions from your health care provider about how to take care of your incision. Make sure you:? Wash your hands with soap and water before you change your bandage (dressing). If soap and water are not available, use hand runner out. ? Change your dressing as told by your health care provider. ? Leave stitches (sutures), skin glue, or adhesive strips in place. These skin closures may need to stay in place for 2 weeks or longer. If adhesive strip edges start to loosen and curl up, you may trim the loose edges. Do not remove adhesive strips completely unless your health care provider tells you to do that. ??? Check your incision area every day for signs of infection. Check for:? More redness, swelling, or pain. ? More fluid or blood. ? Warmth. ? Pus or a bad smell. Activity??? Return to your normal activities as told by your health care provider. Ask your health care provider what activities are safe for you. ??? Do notlift anything that is heavier than 10 lb (4.5 kg) until your health care provider approves. ??? Do not lift your upper arms above your shoulders for at least 6 weeks or as long as told by your health care provider.? If you sleep with your arms above your head, wear an arm restraint while you sleep to prevent this from happening. ? Avoid sudden movements that pull your upper arms far away from your body for at least 6 weeks. ??? Do a mild form of exercise at least once a day. As you feel better, you may exercise more. ??? Gently stretch your shoulders at least once a day to help prevent stiffness in your chest. Electricity and Magnetic Flynn??? Avoid places and objects that have a strong electric or magnetic field. This includes:? Airport security checkpoints. When you are at the airport, tell officials that you have a pacemaker and show them your pacemaker identification card. Officials will check you in safely so that your pacemaker is not damaged. Do not allow magnetic wands to be waved near your pacemaker. That can make the pacemaker stop working. ? Metal detectors. If you must pass through a metal detector, walk through it quickly. Do not stop under the detector or stand near it. ? Power plants. ? Large electrical generators. ? Radiofrequency transmission towers, such as cell phone and radio towers. ??? Do notuse amateur ( [employer] ) radio equipment or electric ( arc ) welding torches. If you are not sure whether something is safe to use, ask your health care provider.? Some devices may be safe to use if you hold them at least 1 ft (0.3 m) from your pacemaker. These devices may include power tools, lawn mowers, and speakers. ??? When you talk on your cell phone, hold it to your ear that is opposite from the side that your pacemaker is on. Do not leave your cell phone in a pocket over your pacemaker. Long-Term Care??? Carry your pacemaker identification card with you at all times, especially when you travel. ??? Consider wearing a medical alert bracelet or necklace that explains your pacemaker and any heart conditions you have. ??? Tell all health care providers who care for you that you have a pacemaker. This may prevent you from having an MRI because of the strong magnets used during that test. ??? Have your pacemaker checked every 3?6 months or as often as told by your health care provider. General instructions??? Do notuse any tobacco products, such as cigarettes, chewing tobacco, or e-cigarettes. If you need help quitting, ask your health care provider. ??? Do notdrive or operate heavy machinery while taking prescription pain medicine. ??? Do not take baths, swim, or use a hot tub until your health care provider approves. ??? Follow instructions from your health care provider about eating or drinking restrictions. ??? Weigh yourself every day and write down your weight. ??? Keep all follow-up visits as told by your health care provider. This is important. Contact a health care provider if: ??? You suddenly gain 3 lb (1.4 kg) or more in 24 hours. ??? You have swelling in your feet or legs. ??? You have an irregular heartbeat (palpitations). ??? You have more redness, swelling, or pain around your incision. ??? You have more fluid or blood coming from your incision. ??? Your incision area feels warm to the touch. ??? You have pus or a bad smell coming from your incision. Get help right away if: ??? You have chest pain. ??? You have difficulty breathing. ??? You suddenly feel light-headed. ??? You have a fever. ??? You faint. These symptoms may represent a serious problem that is an emergency. Do not wait to see if the symptoms will go away. Get medical help right away. Call your local emergency services (911 in the [place] Do not drive yourself to the hospital. This information is not intended to replace advice given to you by your health care provider. Make sure you discuss any questions you have with your health care provider. Document Released: 04/21/2013 Document Revised: 01/02/2017 Document Reviewed: 04/21/2016 ? 2017 [employer] Incentive Spirometer An incentive spirometer is a tool that measures how well you are filling your lungs with each breath. This tool can help keep your lungs clear and active. Taking long, deep breaths may help reverse or decrease the chance of developing breathing (pulmonary) problems, especially infection, following: ??? Surgery of the chest or abdomen. ??? Surgery if you have a history of smoking or a lung problem. ??? A long period of time when you are unable to move or be active. If the spirometer includes an indicator to show your best effort, your health care provider or respiratory therapist will help you set a goal. Keep a log of your progress if directed by your health care provider. What are the risks? Breathing too quickly may cause dizziness or cause you to pass out. Take your time so you do not get dizzy or lightheaded. ??? If you are in pain, you may need to take or ask for pain medicine before doing incentive spirometry. It is harder to take a deep breath if you are having pain. How to use your incentive spirometer 1. Sit on the edge of your bed if possible, or sit up as far as you can in bed or on a chair. 2. Hold the incentive spirometer in an upright position. 3. Breathe out normally. 4. Place the mouthpiece in your mouth and seal your lips tightly around it. 5. Breathe in slowly and as deeply as possible, raising the piston or the ball toward the top of the column. 6. Hold your breath for 3?5 seconds or for as long as possible. Allow the piston or ball to fall to the bottom of the column. 7. Remove the mouthpiece from your mouth and breathe out normally. 8. The spirometer may include an indicator to show your best effort. Use the indicator as a goal to work toward during each repetition. 9. Rest for a few seconds and repeat this at least 10 times, every 1?2 hours when you are awake. Take your time and take a few normal breaths between deep breaths. Breathing too quickly may cause dizziness or cause you to pass out. Take your time so you do not get dizzy or lightheaded. 10. After each set of 10 deep breaths, practice coughing to be sure your lungs are clear. If you had a surgical cut (incision) made during surgery, support your incision when coughing by placing a pillow or rolled-up towel firmly against it. Once you are able to get out of bed, walk around indoors and cough well. You may stop using the incentive spirometer when instructed by your health care provider. Contact a health care provider if: ??? You are having difficulty using the spirometer. ??? You have trouble using the spirometer as often as instructed. ??? Your pain medicine is not giving enough relief while using the spirometer. ??? You have a fever. ??? You develop shortness of breath. Get help right away if: ??? You develop a cough with bloody sputum. ??? You develop worsening pain, redness, or discharge at or near the incision site. This information is not intended to replace advice given to you by your health care provider. Make sure you discuss any questions you have with your health care provider. Document Released: 12/08/2007 Document Revised: 04/21/2017 Document Reviewed: 03/06/2015 [employer] Patient Education ? 2017 [employer] Smoking Hazards Smoking cigarettes is extremely bad for your health. Tobacco smoke has over 200 known poisons in it. It contains the poisonous gases nitrogen oxide and carbon monoxide. There are over 60 chemicals in tobacco smoke that cause cancer. Some of the chemicals found in cigarette smoke include: ??? Cyanide. ? Benzene. ? Formaldehyde. ? Methanol (wood alcohol). ? Acetylene (fuel used in welding torches). ? Ammonia. ? Even smoking lightly shortens your life expectancy by several years. You can greatly reduce the risk of medical problems for you and your family by stopping now. Smoking is the most preventable cause of and disease in our society. Within days of quitting smoking, your circulation improves, you decrease the risk of having a heart attack, and your lung capacity improves. There may be some increased phlegm in the first few days after quitting, and it may take months for your lungs to clear up completely. Quitting for 10 years reduces your risk of developing lung cancer to almost that of a nonsmoker. WHAT ARE THE RISKS OF SMOKING? Cigarette smokers have an increased risk of many serious medical problems, including: ??? Lung cancer. ? Lung disease (such as pneumonia, bronchitis, and emphysema). ? Heart attack and chest pain due to the heart not getting enough oxygen (angina). ? Heart disease and peripheral blood vessel disease. ? Hypertension. ? Stroke. ? Oral cancer (cancer of the lip, mouth, or voice box). ? Bladder cancer. ? Pancreatic cancer. ? Cervical cancer. ? complications, including premature . ? Stillbirths and smaller babies, defects, and genetic damage to sperm. ? Early menopause. ? Lower estrogen level for women. ? Infertility. ? Facial wrinkles. ? Blindness. ? Increased risk of broken bones (fractures). ? Senile dementia. ? Stomach ulcers and internal bleeding. ? Delayed wound healing and increased risk of complications during surgery. Because of secondhand smoke exposure, children of smokers have an increased risk of the following: ??? Sudden syndrome (SIDS). ? Respiratory infections. ? Lung cancer. ? Heart disease. ? Ear infections. ? WHY IS SMOKING ADDICTIVE? Nicotine is the chemical agent in tobacco that is capable of causing addiction or dependence. When you smoke and inhale, nicotine is absorbed rapidly into the bloodstream through your lungs. Both inhaled and noninhaled nicotine may be addictive. WHAT ARE THE BENEFITS OF QUITTING? There are many health benefits to quitting smoking. Some are: ??? The likelihood of developing cancer and heart disease decreases. Health improvements are seen almost immediately. ? Blood pressure, pulse rate, and breathing patterns start returning to normal soon after quitting. ? People who quit may see an improvement in their overall quality of life. ? HOW DO YOU QUIT SMOKING? Smoking is an addiction with both physical and psychological effects, and longtime habits can be hard to change. Your health care provider can recommend: ??? Programs and community resources, which may include group support, education, or therapy. ??? Replacement products, such as patches, gum, and nasal sprays. Use these products only as directed. Do not replace cigarette smoking with electronic cigarettes (commonly called e-cigarettes). The safety of e-cigarettes is unknown, and some may contain harmful chemicals. FOR MORE INFORMATION ??? [place] [employer]: www.lung.org ??? [place] [employer]: www.cancer.org This information is not intended to replace advice given to you by your health care provider. Make sure you discuss any questions you have with your health care provider. Document Released: 09/04/2005 Document Revised: 11/18/2016 Document Reviewed: 01/17/2014 [employer] Patient Education ? 2017 [employer] Heart-Healthy Eating Plan Many factors influence your heart health, including eating and exercise habits. Heart (coronary) risk increases with abnormal blood fat (lipid) levels. Heart-healthy meal planning includes limiting unhealthy fats, increasing healthy fats, and making other small dietary changes. This includes maintaining a healthy body weight to help keep lipid levels within a normal range. What is my plan? Your health care provider recommends that you: ??? Get no more than % of the total calories in your daily diet from fat. ??? Limit your intake of saturated fat to less than % of your total calories each day. ??? Limit the amount of cholesterol in your diet to less than mg per day. What types of fat should I choose? Choose healthy fats more often. Choose monounsaturated and polyunsaturated fats, such as olive oil and canola oil, flaxseeds, walnuts, almonds, and seeds. ??? Eat more omega-3 fats. Good choices include salmon, mackerel, sardines, tuna, flaxseed oil, and ground flaxseeds. Aim to eat fish at least two times each week. ??? Limit saturated fats. Saturated fats are primarily found in animal products, such as meats, butter, and cream. Plant sources of saturated fats include palm oil, palm kernel oil, and coconut oil. ??? Avoid foods with partially hydrogenated oils in them. These contain trans fats. Examples of foods that contain trans fats are stick margarine, some tub margarines, cookies, crackers, and other baked goods. What general guidelines do I need to follow? Check food labels carefully to identify foods with trans fats or high amounts of saturated fat. ??? Fill one half of your plate with vegetables and green salads. Eat 4?5 servings of vegetables per day. A serving of vegetables equals 1 cup of raw leafy vegetables, ? cup of raw or cooked cut-up vegetables, or ? cup of vegetable juice. ??? Fill one fourth of your plate with whole grains. Look for the word whole as the first word in the ingredient list. ??? Fill one fourth of your plate with lean protein foods. ??? Eat 4?5 servings of fruit per day. A serving of fruit equals one medium whole fruit, ? cup of dried fruit, ? cup of fresh, frozen, or canned fruit, or ? cup of 100% fruit juice. ??? Eat more foods that contain soluble fiber. Examples of foods that contain this type of fiber are apples, broccoli, carrots, beans, peas, and barley. Aim to get 20?30 g of fiber per day. ??? Eat more home-cooked food and less restaurant, buffet, and fast food. ??? Limit or avoid alcohol. ??? Limit foods that are high in starch and sugar. ??? Avoid fried foods. ??? Cook foods by using methods other than frying. Baking, boiling, grilling, and broiling are all great options. Other fat-reducing suggestions include: ? Removing the skin from poultry. ? Removing all visible fats from meats. ? Skimming the fat off of stews, soups, and gravies before serving them. ? Steaming vegetables in water or broth. ??? Lose weight if you are overweight. Losing just 5?10% of your initial body weight can help your overall health and prevent diseases such as diabetes and heart disease. ??? Increase your consumption of nuts, legumes, and seeds to 4?5 servings per week. One serving of dried beans or legumes equals ? cup after being cooked, one serving of nuts equals 1? ounces, and one serving of seeds equals ? ounce or 1 tablespoon. ??? You may need to monitor your salt (sodium) intake, especially if you have high blood pressure. Talk with your health care provider or dietitian to get more information about reducing sodium. What foods can I eat? Grains Breads, including Sudanese, white, serenity, wheat, raisin, rye, oatmeal, and Frisian. Tortillas that are neither fried nor made with lard or trans fat. Low-fat rolls, including hotdog and hamburger buns and Moroccan muffins. Biscuits. Muffins. Waffles. Pancakes. Light popcorn. Whole-grain cereals. Flatbread. [place] toast. Pretzels. Breadsticks. Rusks. Low-fat snacks and crackers, including oyster, saltine, matzo, selvin, animal, and rye. Rice and pasta, including brown rice and those that are made with whole wheat. VegetablesAll vegetables. FruitsAll fruits, but limit coconut. Meats and Other Protein SourcesLean, well-trimmed beef, veal, pork, and lund. Chicken and turkey without skin. All fish and shellfish. Wild duck, rabbit, pheasant, and venison. Egg whites or low-cholesterol egg substitutes. Dried beans, peas, lentils, and tofu.?Seeds and most nuts. DairyLow-fat or nonfat cheeses, including ricotta, string, and mozzarella. Skim or 1% milk that is liquid, powdered, or evaporated. Buttermilk that is made with low-fat milk. Nonfat or low-fat yogurt. BeveragesMineral water. Diet carbonated beverages. Sweets and DessertsSherbets and fruit ices. Honey, jam, marmalade, jelly, and syrups. Meringues and gelatins. Pure sugar candy, such as hard candy, jelly beans, gumdrops, mints, marshmallows, and small amounts of dark chocolate. Matthew food cake. Eat all sweets and desserts in moderation. Fats and OilsNonhydrogenated (trans-free) margarines. Vegetable oils, including soybean, sesame, sunflower, olive, peanut, safflower, corn, canola, and cottonseed. Salad dressings or mayonnaise that are made with a vegetable oil. Limit added fats and oils that you use for cooking, baking, salads, and as spreads. OtherCocoa powder. Coffee and tea. All seasonings and condiments. The items listed above may not be a complete list of recommended foods or beverages. Contact your dietitian for more options. What foods are not recommended? GrainsBreads that are made with saturated or trans fats, oils, or whole milk. Croissants. Butter rolls. Cheese breads. Sweet rolls. Donuts. Buttered popcorn. Ortega mein noodles. High-fat crackers, such as cheese or butter crackers. Meats and Other Protein SourcesFatty meats, such as hotdogs, short ribs, sausage, spareribs, sen, ribeye roast or steak, and mutton. High-fat deli meats, such as salami and bologna. Caviar. Domestic duck and goose. Organ meats, such as kidney, liver, sweetbreads, brains, gizzard, chitterlings, and heart. DairyCream, sour cream, cream cheese, and creamed cottage cheese. Whole milk cheeses, including blue (henry), [place], Brie, Hayes, Tristanian, Havarti, Mozambican, cheddar, Camembert, and [place]nor. Whole or 2% milk that is liquid, evaporated, or condensed. Whole buttermilk. Cream sauce or high-fat cheese sauce. Yogurt that is made from whole milk. BeveragesRegular sodas and drinks with added sugar. Sweets and DessertsFrosting. Pudding. Cookies. Cakes other than matthew food cake. Candy that has milk chocolate or white chocolate, hydrogenated fat, butter, coconut, or unknown ingredients. Buttered syrups. Full-fat ice cream or ice cream drinks. Fats and OilsGravy that has suet, meat fat, or shortening. [place] butter, hydrogenated oils, palm oil, coconut oil, palm kernel oil. These can often be found in baked products, candy, fried foods, nondairy creamers, and whipped toppings. Solid fats and shortenings, including sen fat, salt pork, lard, and butter. Nondairy cream substitutes, such as coffee creamers and sour cream substitutes. Salad dressings that are made of unknown oils, cheese, or sour cream. The items listed above may not be a complete list of foods and beverages to avoid. Contact your dietitian for more information. This information is not intended to replace advice given to you by your health care provider. Make sure you discuss any questions you have with your health care provider. Document Released: 05/06/2009 Document Revised: 02/14/2017 Document Reviewed: 01/19/2015 [employer] Patient Education ? 2017 [employer] How to Take a Pulse Your pulse is the increase in pressure inside the blood vessels that carry blood from your heart to the rest of your body (arteries). Every time your heart beats, you can feel your pulse in an artery near the surface of your skin. You can easily feel your pulse in the artery in your wrist (radial artery) and in the artery in your neck (carotid artery). Taking your pulse can tell you how fast your heart is beating and whether it has a normal rhythm. You can also tell whether your heart is beating strongly or weakly. What you need to know about pulse rates Your pulse is the same as your heart rate. Both are measured in beats per minute (bpm). A normal resting heart rate varies depending on a person's age. ??? Infants under 1 year of age: Normal heart rate of 100?160 bpm. ??? Children 1?2 years of age: Normal heart rate of 90?150 bpm. ??? Children 2?5 years of age: Normal heart rate of 80?140 bpm. ??? Children 6?12 years of age: Normal heart rate of 70?120 bpm. ??? Everyone over 12 years of age: Normal heart rate of 60?100 bpm. There can be a lot of variation in your pulse. It can be different depending on the time of day or the amount of exercise that you get. It changes with your fitness level. Many things can change the speed and regularity of your pulse. These include: ??? Exercise. ??? Fever. ??? Stress. ??? Heart problems. ??? Poor circulation. ??? Medicines. How to take your pulse To take your pulse, all you need is a digital stopwatch or a clock or watch that has a second hand. The best time to measure your resting pulse is in the morning before you start moving around. Take it as soon as you wake up or after resting for about 10 minutes. There are no firm rules about how often to check your pulse. In general, it is a good idea to check your pulse at least once a month. Measuring your pulse is a good way to check your heart health. Checking your pulse before and after exercise can tell you if you are getting the right amount of exercise. This is called finding your target heart rate. Your target heart rate depends on your age, fitness, and health. Ask your health care provider what would be a safe target heart rate for you during exercise. Radial PulseTo check the pulse in your radial artery: 1. Turn one hand palm-up and relax your arm. 2. Place the first two fingers of your other hand gently over your wrist, just below the base of your thumb. 3. Place your fingertips just inside the bone that runs along the outside of your arm. 4. Slowly increase pressure until you feel a pulsing beneath your fingers. You may need to move your fingers slightly. 5. Do notpress too hard. Too much pressure may cut off blood supply. 6. Count how many pulse beats you feel in 1 minute. Or, count how many pulse beats you feel in 30 seconds and double that number. 7. Pay attention to the rhythm of the pulse. It should be steady and even. Carotid PulseTo check the pulse in your carotid artery: 1. Place two fingers just to one side of your Kwasi?s apple so that you feel a pulsing beneath your fingers. 2. Do notpress too hard. Too much pressure may cut off blood supply and can make you dizzy. 3. Count how many pulse beats you feel in 1 minute. Or, count how many pulse beats you feel in 30 seconds and double that number. 4. Pay attention to the rhythm of the pulse. It should be steady and even. Contact a health care provider if: ??? Your pulse is too slow or too fast. ??? Your pulse is weak or hard to find. ??? You have skipped beats or extra beats. ??? Your pulse has an irregular rhythm. ??? You have an abnormal pulse along with dizziness, fatigue, or shortness of breath. This information is not intended to replace advice given to you by your health care provider. Make sure you discuss any questions you have with your health care provider. Document Released: 02/01/2004 Document Revised: 02/14/2017 Document Reviewed: 12/31/2016 [employer] Patient Education ? 2017 [employer] How to Take Your Blood Pressure HOW DO I GET A BLOOD PRESSURE MACHINE? You can buy an electronic home blood pressure machine at your local pharmacy. Insurance will sometimes cover the cost if you have a prescription. ??? Ask your doctor what type of machine is best for you. There are different machines for your arm and your wrist. ??? If you decide to buy a machine to check your blood pressure on your arm, first check the size of your arm so you can buy the right size cuff. To check the size of your arm: ? ? Use a measuring tape that shows both inches and centimeters. ? ? Wrap the measuring tape around the upper-middle part of your arm. You may need someone to help you measure. ? ? Write down your arm measurement in both inches and centimeters. ? To measure your blood pressure correctly, it is important to have the right size cuff. ? ? If your arm is up to 13 inches (up to 34 centimeters), get an adult cuff size. ? If your arm is 13 to 17 inches (35 to 44 centimeters), get a large adult cuff size. ? ? If your arm is 17 to 20 inches (45 to 52 centimeters), get an adult thigh cuff. ? WHAT DO THE NUMBERS MEAN? There are two numbers that make up your blood pressure. For example: 120/80. ? The first number (120 in our example) is called the systolic pressure. It is a measure of the pressure in your blood vessels when your heart is pumping blood. ? The second number (80 in our example) is called the diastolic pressure. It is a measure of the pressure in your blood vessels when your heart is resting between beats. ??? Your doctor will tell you what your blood pressure should be. WHAT SHOULD I DO BEFORE I CHECK MY BLOOD PRESSURE? Try to rest or relax for at least 30 minutes before you check your blood pressure. ??? Do notsmoke. ??? Do nothave any drinks with caffeine, such as: ? Soda. ? Coffee. ? Tea. ??? Check your blood pressure in a quiet room. ??? Sit down and stretch out your arm on a table. Keep your arm at about the level of your heart. Let your arm relax. ??? Make sure that your legs are not crossed. HOW DO I CHECK MY BLOOD PRESSURE? Follow the directions that came with your machine. ??? Make sure you remove any tight-fitting clothing from your arm or wrist. Wrap the cuff around your upper arm or wrist. You should be able to fit a finger between the cuff and your arm. If you cannot fit a finger between the cuff and your arm, it is too tight and should be removed and rewrapped. ??? Some units require you to manually pump up the arm cuff. ??? Automatic units inflate the cuff when you press a button. ??? Cuff deflation is automatic in both models. ??? After the cuff is inflated, the unit measures your blood pressure and pulse. The readings are shown on a monitor. Hold still and breathe normally while the cuff is inflated. ??? Getting a reading takes less than a minute. ??? Some models store readings in a memory. Some provide a printout of readings. If your machine does not store your readings, keep a written record. ??? Take readings with you to your next visit with your doctor. This information is not intended to replace advice given to you by your health care provider. Make sure you discuss any questions you have with your health care provider. Document Released: 07/10/2009 Document Revised: 08/18/2015 Document Reviewed: 09/22/2014 [employer] Interactive Patient Education ? 2017 [employer] Cardiomyopathy, Adult Cardiomyopathy is a long-term (chronic) disease of the heart muscle. The disease makes the heart muscle thick, weak, or stiff. As a result, the heart works harder to pump blood. Over time, cardiomyopathy can lead to heart failure. There are several types of cardiomyopathy: ??? Dilated cardiomyopathy. This type causes the ventricles to become weak and stretched out. ??? Hypertrophic cardiomyopathy. This type causes the heart muscle to thicken. ??? Restrictive cardiomyopathy. This type causes the heart muscle to become stiff. ??? Ischemic cardiomyopathy. This type involves narrowing arteries that cause the hagen of the heart to get thinner. ??? Peripartum cardiomyopathy. This type occurs during or shortly after . What are the causes? This condition may be caused by: ??? A gene that is passed down (inherited) from a family member. ??? A medical condition that damages the heart, such as: ? Diabetes. ? High blood pressure. ? Viral infection of the heart. ? Heart attack. ? Coronary heart disease. ??? Alcoholism. ??? Using illegal drugs or some prescription medicines. ??? . ??? Your body absorbing and storing too much iron (hemochromatosis). ??? Autoimmune diseases, connective tissue diseases, endocrine diseases, and muscle diseases. ??? Cancer treatments. ??? Buildup of proteins in your organs (amyloidosis), or inflammation in your organs (sarcoidosis). Often, the cause is not known. What increases the risk? This condition is more likely to develop in people who: ??? Have a family history of cardiomyopathy or other heart problems. ??? Are overweight or obese. ??? Use illegal drugs. ??? Abuse alcohol. ??? Have a medical condition that damages the heart. What are the signs or symptoms? Symptoms of this condition include: ??? Shortness of breath, especially during activity. ??? Fatigue. ??? An irregular heartbeat and heart murmurs. ??? Dizziness. ??? Light-headedness. ??? Fainting. ??? Chest pain. ??? Coughing. ??? Swelling in the lower legs, ankles, feet, abdomen, and neck veins. Often, people with this condition have no symptoms. How is this diagnosed? This condition is diagnosed based on: ??? Your symptoms and medical history. ??? A physical exam. ??? Tests. Tests may include: ??? Blood tests. ??? Imaging studies of your heart, such as: ? X-rays. ? An echocardiogram. ? An MRI. ??? An electrocardiogram (ECG). This records your heart's electrical activity. ??? A test in which you wear a portable device (event monitor) to record your heart's electrical activity while you go about your day. ??? A stress test. This monitors your heart's activity while exercising. ??? Cardiac catheterization. This procedure checks the blood pressure and blood flow in your heart. ??? An angiogram. This is an injection of dye into your arteries before imaging studies are taken. ??? Heart tissue biopsy. This removes a sample of heart tissue for examination. How is this treated? Treatment for this condition depends on the type of cardiomyopathy you have and the severity of your symptoms. If you do not have symptoms, you may not need treatment. If you need treatment, it may include: ??? Lifestyle changes, such as: ? Eating a heart-healthy diet that includes plenty of fruits, vegetables, and whole grains, and cutting down on salt (sodium). ? Maintaining a healthy weight, and losing weight, if needed. ? Getting regular exercise. ? Quitting smoking, if you smoke. ? Avoiding alcohol. ??? Medicine to: ? Lower your blood pressure. ? Slow down your heart rate. ? Keep your heart beating in a steady rhythm. ? Clear excess fluids from your body. ? Prevent blood clots. ? Balance minerals (electrolytes) in your body and get rid of extra sodium in your body. ? Reduce inflammation. ? Strengthen your heartbeat. ??? Surgery to: ? Repair a defect. ? Remove thickened tissue. ? Destroy tissues in the area of abnormal electrical activity (ablation). ? Implant a device to treat serious heart rhythm problems (implantable cardioverter-defibrillator, or ICD), or a pacemaker. ? Replace your heart (heart transplant) if all other treatments have failed (end stage). Other treatments may include cardiac resynchronization therapy (UNDERCUTTER) or a left ventricular assist device (LVAD). Follow these instructions at home: Lifestyle ??? Eat a heart-healthy diet. Work with your health care provider or a registered dietitian to learn about healthy eating options. ??? Maintain a healthy weight. ??? Stay physically active. Ask your health care provider to suggest some activities that are good for you. ??? Do notuse any products that contain nicotine or tobacco, such as cigarettes and e-cigarettes. If you need help quitting, ask your health care provider. ??? Limit alcohol intake to no more than one drink per day for non women and no more than two drinks per day for men. One drink equals 12 oz of beer, 5 oz of wine, or 1? oz of hard liquor. ??? Try to get at least 7 hours of sleep each night. ??? Find healthy ways to manage stress. General instructions ??? Take [id number] and prescription medicines only as told by your health care provider. Some medicines can be dangerous for your heart. ??? Tell all health care providers, including your dentist, that you have cardiomyopathy. When you visit the dentist or have surgery, ask your health care provider if you need antibiotics before having dental care or before the surgery. ??? Ask your health care provider if you should wear a medical identification bracelet. This may be important if you have a pacemaker or a defibrillator. ??? Make sure you get all recommended vaccinations and an annual flu shot. ??? Work closely with your health care provider to manage any long-lasting (chronic) conditions. ??? Keep all follow-up visits as told by your health care provider. This is important, even if you do not have any symptoms. Your health care provider may need to make sure your condition is not getting worse. How is this prevented? This condition cannot be prevented. Parents, siblings, and children of people with this condition may be at risk for the condition. It is a good idea for them to get screened for the condition because it is best when cardiomyopathy is found early. Screening is done with an ECG and echocardiogram. People who want to start a family may also want to meet with a genetic counselor to discuss the risk of having a child with cardiomyopathy. Contact a health care provider if: ??? Your symptoms get worse. ??? You have new symptoms. Get help right away if: ??? You have severe chest pain. ??? You have shortness of breath. ??? You cough up pink, bubbly material. ??? You have sudden sweating. ??? You feel nauseous and you vomit. ??? You suddenly become light-headed or dizzy. ??? You feel your heart beating very quickly. ??? It feels like your heart is skipping beats. These symptoms may represent a serious problem that is an emergency. Do not wait to see if the symptoms will go away. Get medical help right away. Call your local emergency services (911 in the [place] Do not drive yourself to the hospital. This information is not intended to replace advice given to you by your health care provider. Make sure you discuss any questions you have with your health care provider. Document Released: 10/10/2005 Document Revised: 03/25/2017 Document Reviewed: 01/27/2017 [employer] Patient Education ? 2017 [employer] Medication Leaflets: carvedilol (PRABHJOT ve dil ole) Germania Solo What is the most important information I should know about carvedilol? You should not take carvedilol if you have asthma, bronchitis, emphysema, severe liver disease, or a serious heart condition such as heart block, 'sick sinus syndrome,' or slow heart rate (unless you have a pacemaker). What is carvedilol? Carvedilol is a beta-ina. Beta-blockers affect the heart and circulation (blood flow through arteries and veins). Carvedilol is used to treat heart failure and hypertension (high blood pressure). It is also used after a heart attack that has caused your heart not to pump as well. Carvedilol may also be used for purposes not listed in this medication guide. What should I discuss with my healthcare provider before taking carvedilol? You should not take carvedilol if you are allergic to it, or if you have: ? asthma, bronchitis, emphysema; ?? severe liver disease; or ?? a serious heart condition such as heart block, 'sick sinus syndrome,' or slow heart rate (unless you have a pacemaker). To make sure carvedilol is safe for you, tell your doctor if you have: ? diabetes (taking carvedilol can make it harder for you to tell when you have low blood sugar); ?? angina (chest pain); ?? liver or kidney disease; ?? a thyroid disorder; ?? pheochromocytoma (tumor of the adrenal gland); ?? circulation problems (such as Raynaud's syndrome); or ?? a history of allergies. FDA category C. It is not known whether carvedilol will harm an unborn baby. Tell your doctor if you are or plan to become while using this medication. It is not known whether carvedilol passes into breast milk or if it could harm a nursing baby. You should not breast-feed while you are taking carvedilol. How should I take carvedilol? Follow all directions on your prescription label. Your doctor may occasionally change your dose to make sure you get the best results. Do not take this medicine in larger or smaller amounts or for longer than recommended. Carvedilol works best if you take it with food. You may open the carvedilol capsule and sprinkle the medicine into a spoonful of pudding or applesauce to make swallowing easier. Swallow right away without chewing. Do not save the mixture for later use. Discard the empty capsule. Take carvedilol at the same time every day. Do not skip doses or stop taking carvedilol without first talking to your doctor. Stopping suddenly may make your condition worse. If you are switched from carvedilol tablets to carvedilol extended-release capsules (Coreg CR), your daily total dose of this medicine may be higher or lower than before. Older adults may be more likely to become dizzy or feel faint when switching from tablets to extended-release capsules. Follow your doctor's instructions. Your blood pressure will need to be checked often. If you are being treated for high blood pressure, keep using this medication even if you feel well. High blood pressure often has no symptoms. You may need to use blood pressure medication for the rest of your life. If you need surgery, tell the surgeon ahead of time that you are using carvedilol. You may need to stop using the medicine for a short time. You should not stop using carvedilol suddenly. Stopping suddenly may make your condition worse. Carvedilol can affect your pupils during cataract surgery. Tell your eye surgeon ahead of time that you are using this medication. Do not stop using carvedilol before surgery unless your surgeon tells you to. Carvedilol is only part of a complete program of treatment for hypertension that may also include diet, exercise, and weight control. Follow your diet, medication, and exercise routines very closely if you are being treated for hypertension. Store at room temperature away from moisture and heat. What happens if I miss a dose? Take the missed dose as soon as you remember. Skip the missed dose if it is almost time for your next scheduled dose. Do not take extra medicine to make up the missed dose. What happens if I overdose? Seek emergency medical attention or call the Poison Help line at . Overdose symptoms may include uneven heartbeats, shortness of breath, bluish-colored fingernails, dizziness, weakness, fainting, and seizure (convulsions). What should I avoid while taking carvedilol? Carvedilol may impair your thinking or reactions. Be careful if you drive or do anything that requires you to be alert. Drinking alcohol can further lower your blood pressure and may increase certain side effects of carvedilol. You should especially avoid drinking alcohol within 2 hours before or after taking extended-release carvedilol (Coreg CR). Avoid getting up too fast from a sitting or lying position, or you may feel dizzy. Get up slowly and steady yourself to prevent a fall. What are the possible side effects of carvedilol? Get emergency medical help if you have any of these signs of an allergic reaction: hives; difficulty breathing; swelling of your face, lips, tongue, or throat. Call your doctor at once if you have a serious side effect such as: ? a light-headed feeling, like you might pass out; ?? slow or uneven heartbeats; ?? swelling, rapid weight gain, feeling short of breath (even with mild exertion); ?? cold feeling or numbness in your fingers or toes; ?? chest pain, dry cough, wheezing, chest tightness, trouble breathing; or ?? high blood sugar (increased thirst, increased urination, hunger, dry mouth, fruity breath odor, drowsiness, dry skin, blurred vision, weight loss). Common side effects may include: ? weakness, dizziness; ?? diarrhea; ?? dry eyes; ?? tired feeling; or ?? weight gain. This is not a complete list of side effects and others may occur. Call your doctor for medical advice about side effects. You may report side effects to FDA at 3-661-CNR-3919. What other drugs will affect carvedilol? Other drugs may interact with carvedilol, including prescription and acxg-dbw-mnrzfny medicines, vitamins, and herbal products. Tell each of your health care providers about all medicines you use now and any medicine you start or stop using. Where can I get more information? Your pharmacist can provide more information about carvedilol. Remember, keep this and all other medicines out of the reach of children, never share your medicines with others, and use this medication only for the indication prescribed. Every effort has been made to ensure that the information provided by [employer]. ('[employer]') is accurate, up-to-date, and complete, but no guarantee is made to that effect. Drug information contained herein may be time sensitive. [employer] information has been compiled for use by healthcare practitioners and consumers in the [place] and therefore [employer] does not warrant that uses outside of the [place] are appropriate, unless specifically indicated otherwise. [employer]'s drug information does not endorse drugs, diagnose patients or recommend therapy. [employer] drug information is an informational resource designed to assist licensed healthcare practitioners in caring for their patients and/or to serve consumers viewing this service as a supplement to, and not a substitute for, the expertise, skill, knowledge and judgment of healthcare practitioners. The absence of a warning for a given drug or drug combination in no way should be construed to indicate that the drug or drug combination is safe, effective or appropriate for any given patient. [employer] does not assume any responsibility for any aspect of healthcare administered with the aid of information [employer] provides. The information contained herein is not intended to cover all possible uses, directions, precautions, warnings, drug interactions, allergic reactions, or adverse effects. If you have questions about the drugs you are taking, check with your doctor, nurse or pharmacist. Copyright 0308-3633 [employer]. Version: 15.01. Revision Date: 08/30/2013. albuterol and ipratropium (inhalation) (al [address] ol and LIZA sheriff um) Combivent Respimat, DuoNeb What is the most important information I should know about albuterol and ipratropium inhalation? Seek medical attention if you think this medication is not working as well as usual. Overuse of albuterol and ipratropium may increase the risk of . It is critical that you use only the prescribed dose of this medicine. What is albuterol and ipratropium inhalation? Albuterol and ipratropium are bronchodilators that relax muscles in the airways and increase air flow to the lungs. Albuterol and ipratropium inhalation is used to prevent bronchospasm in people with chronic obstructive pulmonary disease (COPD) who are also using other medicines to control their condition. Albuterol and ipratropium inhalation may also be used for purposes not listed in this medication guide. What should I discuss with my healthcare provider before using albuterol and ipratropium inhalation? You should not use this medicine if you are allergic to albuterol (Proventil, Ventolin), ipratropium (Atrovent), or atropine. To make sure albuterol and ipratropium inhalation is safe for you, tell your doctor if you have ever had: ? heart disease, high blood pressure, coronary artery disease, or heart rhythm disorder; ?? a seizure disorder such as epilepsy; ?? diabetes; ?? overactive thyroid; ?? glaucoma; ?? liver or kidney disease; or ?? enlarged prostate, problems with urination. It is not known whether this medicine will harm an unborn baby. Tell your doctor if you are or plan to become . Albuterol and ipratropium inhalation can pass into breast milk and may harm a nursing baby. You should not breast-feed while using this medicine. Albuterol and ipratropium inhalation is not approved for use by anyone younger than 18 years old. How should I use albuterol and ipratropium inhalation? Follow the directions on your prescription label. Do not use this medicine in larger or smaller amounts or for longer than recommended. Albuterol and ipratropium inhalation is usually used 4 times per day. Follow your doctor's dosing instructions very carefully. Overuse of this medicine may increase the risk of . It is critical that you use only the prescribed dose of this medicine. Albuterol and ipratropium inhalation comes with patient instructions for safe and effective use, and directions for priming the inhaler device. Duoneb and Combivent Respimat have different patient instructions. Follow these directions carefully. Ask your doctor or pharmacist if you have any questions. To use the inhaler (Combivent Respimat): ? You do not need to shake Combivent Respimat before use. ?? Uncap the mouthpiece of the inhaler. Breathe out fully. Put the mouthpiece into your mouth and close your lips. Keep your eyes closed to prevent spraying any medicine into your eyes. Breathe in slowly while pressing the dose-release button on the inhaler. Hold your breath for 10 seconds, then breathe out slowly. ?? Close the cap until you use your inhaler again. ?? Carefully follow all directions for cleaning your specific inhaler device once per week. Keep track of the number of sprays you have used. Throw away the Combivent Respimat inhaler canister after 3 months or 120 sprays, whichever comes first. To use the solution with a nebulizer (Duoneb): ? Open the foil pouch and remove one vial. Squeeze all of the medicine out into the chamber of the nebulizer. Attach the mouthpiece or face mask, then attach the drug chamber to the compressor. ?? Sit upright in a comfortable position. Place the mouthpiece into your mouth or put on the face mask, covering your nose and mouth. Turn on the compressor. ?? Breathe in slowly and evenly until no more mist is formed by the nebulizer and the drug chamber is empty. ?? Clean the nebulizer after each use. Follow the cleaning directions that came with your nebulizer. Use albuterol and ipratropium regularly to get the most benefit. Get your prescription refilled before you run out of medicine completely. Seek medical attention if you think this medication is not working as well as usual. While using albuterol and ipratropium, you may need medical tests. Store at room temperature away from moisture, heat, and light. Keep each Duoneb vial in its foil pouch until you are ready to use it. Do not store Combivent Respimat in your car on hot days. Extreme heat can cause the medicine canister to burst. Do not throw an empty canister into open flame. What happens if I miss a dose? Use the missed dose as soon as you remember. Skip the missed dose if it is almost time for your next scheduled dose. Do not use extra medicine to make up the missed dose. Do not use more than 6 inhalations in a 24-hour period. What happens if I overdose? Seek emergency medical attention or call the Poison Help line at . An overdose of albuterol and ipratropium can be fatal. Overdose symptoms may include chest pain, fast or pounding heartbeats, tremors, dry mouth, extreme thirst, muscle weakness or limp feeling, severe headache, pounding in your neck or ears, or feeling like you might pass out. What should I avoid while using albuterol and ipratropium inhalation? If this medication gets in your eyes, rinse with water and seek medical attention. This medication may cause blurred vision and may impair your thinking or reactions. Be careful if you drive or do anything that requires you to be alert and able to see clearly. What are the possible side effects of albuterol and ipratropium inhalation? Get emergency medical help if you have signs of an allergic reaction: hives; difficult breathing; swelling of your face, lips, tongue, or throat. Call your doctor at once if you have: ? wheezing, choking, or other breathing problems after using this medicine; ?? chest pain; ?? fast or pounding heartbeats, fluttering in your chest; ?? tremors, nervousness; ?? swelling of your ankles or feet; ?? blurred vision, tunnel vision, eye pain, or seeing halos around lights; ?? painful or difficult urination; or ?? low potassium--leg cramps, constipation, irregular heartbeats, fluttering in your chest, increased thirst or urination, numbness or tingling, muscle weakness or limp feeling. Common side effects may include: ? headache; ?? trouble breathing; or ?? cold symptoms such as stuffy nose, sneezing, cough, or sore throat. This is not a complete list of side effects and others may occur. Call your doctor for medical advice about side effects. You may report side effects to FDA at 5-983-ANW-5211. What other drugs will affect albuterol and ipratropium inhalation? Tell your doctor about all your current medicines and any you start or stop using, especially: ? a diuretic or 'water pill'; ?? heart or blood pressure medicine; ?? other beta-blockers; or ?? an antidepressant. This list is not complete. Other drugs may interact with albuterol and ipratropium, including prescription and poys-fbh-dlgmjyh medicines, vitamins, and herbal products. Not all possible interactions are listed in this medication guide. Where can I get more information? Your pharmacist can provide more information about albuterol and ipratropium inhalation. Remember, keep this and all other medicines out of the reach of children, never share your medicines with others, and use this medication only for the indication prescribed. Every effort has been made to ensure that the information provided by [employer]. [employer]') is accurate, up-to-date, and complete, but no guarantee is made to that effect. Drug information contained herein may be time sensitive. [employer] information has been compiled for use by healthcare practitioners and consumers in the [place] and therefore [employer] does not warrant that uses outside of the [place] are appropriate, unless specifically indicated otherwise. [employer]'s drug information does not endorse drugs, diagnose patients or recommend therapy. [employer] drug information is an informational resource designed to assist licensed healthcare practitioners in caring for their patients and/or to serve consumers viewing this service as a supplement to, and not a substitute for, the expertise, skill, knowledge and judgment of healthcare practitioners. The absence of a warning for a given drug or drug combination in no way should be construed to indicate that the drug or drug combination is safe, effective or appropriate for any given patient. [employer] does not assume any responsibility for any aspect of healthcare administered with the aid of information [employer] provides. The information contained herein is not intended to cover all possible uses, directions, precautions, warnings, drug interactions, allergic reactions, or adverse effects. If you have questions about the drugs you are taking, check with your doctor, nurse or pharmacist. Copyright 4192-3772 [employer]. Version: 7.01. Revision Date: 04/04/2017. guaifenesin (gwye FEN e sin) Mucinex, Robitussin Mucus + Chest Congestion, Triaminic Chest Congestion, Tussin Expectorant, Xpect What is the most important information I should know about guaifenesin? Follow all directions on your medicine label and package. Tell each of your healthcare providers about all your medical conditions, allergies, and all medicines you use. What is guaifenesin? Guaifenesin is an expectorant. It helps loosen congestion in your chest and throat, making it easier to cough out through your mouth. Guaifenesin is used to reduce chest congestion caused by the common cold, infections, or allergies. Guaifenesin may also be used for purposes not listed in this medication guide. What should I discuss with my healthcare provider before taking guaifenesin? You should not use this medicine if you are allergic to guaifenesin. Ask a doctor or pharmacist if it is safe for you to use this medicine if you have other medical conditions. It is not known whether guaifenesin will harm an unborn baby. Ask a doctor before using this medicine if you are . It is not known whether guaifenesin passes into breast milk or if it could harm a nursing baby. Ask a doctor before using this medicine if you are breast-feeding a baby. Do not give this medicine to a child without medical advice. How should I take guaifenesin? Use exactly as directed on the label, or as prescribed by your doctor. Do not use in larger or smaller amounts or for longer than recommended. Cough medicine is usually taken only for a short time until your symptoms clear up. Take guaifenesin with food if it upsets your stomach. Measure liquid medicine with the dosing syringe provided, or with a special dose-measuring spoon or medicine cup. If you do not have a dose-measuring device, ask your pharmacist for one. Drink extra fluids to help loosen the congestion and lubricate your throat while you are taking this medication. Store at room temperature away from moisture, heat, and light. What happens if I miss a dose? Since cough or cold medicine is taken when needed, you may not be on a dosing schedule. If you are taking the medication regularly, take the missed dose as soon as you remember. Skip the missed dose if it is almost time for your next scheduled dose. Do not take extra medicine to make up the missed dose. What happens if I overdose? Electronically signed by Israel Walls Conversion Forming Machine Upkeep Mechanic Helper Cerner at 11/28/2022 5:31 PM CDT documented in this encounter Plan of Treatment Upcoming Encounters Date Type Department Care Team (Late st Contact Info) Description 08/23/2025 12:45 PM EST Office Visit [facility] Electrophysiology [address] [place] [address] Vik Corcoran MD [address] [facility] [address] [place], [place] [id number] documented as of this encounter Visit Diagnoses Not on filedocumented in this encounter Care Teams Director E Learning Relationship Specialty Start Date End Date Alfred Cantu MD [address] [place] [address] PCP - General General Internal Medicine 08/29/22 [place] [address] [place] [address] [address] [employer] Pul[employer] Mill Operator Interventional Cardiology 08/29/22 Vik Corcoran MD [address] [place] [address] [address] [employer] And Pulp Mill Operator Electrophysiology 05/19/24 documented as of this encounter
--- OUTSIDE RECORDS SUMMARY | 2025-02-18 10:40 | XMS_ITS | Encounter Summary ---
Author Organization [employer] ([place], [place], [place], [place]) Address [address] [place] [address] Care Team Providers Care Mortgage Originator Name Role Phone Alfred Cantu MD Primary Care Provider [phone] Lyndsey Key MD Unavailable [phone] Vik Corcoran MD Unavailable Encounter Details Date Type Department Care Team (Late st Contact Info) Description 11/01/2018 Transcribed Document [facility] Family Medicine [facility] [place] [address] ProviderRashard MD [address] [place] [id number] Social History Tobacco Use Types Packs/Day Years Used Date Smoking Tobacco: Never Assessed Comments Unknown Sex and Gender Information Value Date Recorded Sex Assigned at Not on file Legal Sex Female 1:15 PM CDT Gender Identity Not on file Sexual Orientation Not on file documented as of this encounter Miscellaneous Notes * Cerner Conversion Note - Rashard ProviderMD - 11/01/2018 5:00 PM CDT Chart Check - Review Order Profile Entered On: 11/01/2018 17:48 EDT Performed On: 11/01/2018 17:00 EDT by CALVIN HARDEN RN Chart Check Chart Reviewed Date and Time : 11/01/2018 17:47 EDT Powerplans Initiated/Discontinued as Appropriate : Yes All Active Orders Reviewed : Yes CALVIN HARDEN RN - 11/01/2018 17:48 EDT Electronically signed by Kavita [facility] Conversion Maintenance Of Way Clerk Cerner at 11/28/2022 5:42 PM CDT documented in this encounter Plan of Treatment Upcoming Encounters Date Type Department Care Team (Late st Contact Info) Description 08/23/2025 12:45 PM EST Office Visit [facility] Electrophysiology [address] [place] [id number] [place] [address] [place] [address] [address] [place] [address] documented as of this encounter Visit Diagnoses Not on filedocumented in this encounter Care Teams Mortgage Originator Relationship Specialty Start Date End Date Alfred Cantu MD [address] [place] [address] PCP - General General Internal Medicine 08/29/22 [place] [address] [place] [address] [address] [place] [address] Aircraft Launch And Recovery Technician Interventional Cardiology 08/29/22 Vik Corcoran MD [address] [place] [address] [address] [place], [place] [id number] Aircraft Launch And Recovery Technician Electrophysiology 05/19/24 documented as of this encounter
--- OUTSIDE RECORDS SUMMARY | 2025-02-18 10:40 | XMS_ITS | Encounter Summary ---
Author Organization [employer] ([place], [place], [place], [place]) Address [address] [place] [address] Care Team Providers Care Heart Surgeon Name Role Phone Alfred Cantu MD Primary Care Provider [phone] Lyndsey Key MD Unavailable [phone] Vik Corcoran MD Unavailable Encounter Details Date Type Department Care Team (Late st Contact Info) Description 11/01/2018 Transcribed Document [facility] [place] Family Medicine [facility] [place] [address] ProviderRashard MD [address] [place] [id number] Social History Tobacco Use Types Packs/Day Years Used Date Smoking Tobacco: Never Assessed Comments Unknown Sex and Gender Information Value Date Recorded Sex Assigned at Not on file Legal Sex Female 1:15 PM CDT Gender Identity Not on file Sexual Orientation Not on file documented as of this encounter Miscellaneous Notes * Cerner Conversion Note - Rashard ProviderMD - 11/01/2018 12:18 PM CDT Patient: KATHY CARTER Age: 78 Years Sex: Female : 1940 Subjective Chief Complaint: 'Worn out' Physical Exam (1, 6, 12) NAD No JVD Oropharynx moist Decreased BS over bases regular, nl S1, S2, 3/6 HSM +BS,soft no edema Vitals & Measurements T: 36.5 ??C TMIN: 36.3 ??C TMAX: 36.5 ??C HR: 90(Monitored) RR: 18 BP: 116/80 SpO2: 98% WT: 85 kg Intake & Output Intake & Output Totals Last 24 Hours (7a-7a) Intake (3 Events) Continuous Infusions (16.67 mL) Oral Fluids (360 mL) Output (5 Events) Urine Voided (Volume) (1550 mL) Input Total: 376.67 mL Output Total: 1550 mL Balance: -1173.33 mL Assessment/Plan 1. 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 Acute systolic heart failure 3. Severe MR 4. Acute pneumonia,on IV antibiotics 5. Severe Leukocytosis 6. Severe hyponatremia 11/01/2018 Back in SR Cancel PETER/CV WBC down to 26K Nephrology on board for hypo NA Continue amiodarone 400mg BID for one week then 200 mg daily Continue Coreh,Eliquis Start low dose lisinopril if BP improves PT pedro/DC planning 10/31/2018 Start amiodarone 400 mg BID, DC IV drip later today Continue Eliquis Possible PETER/CV on friday WBC count started to trend down Ns down to 122-nephrology consult Continue to hold diuretic AST,ALT and TSH normal 10/30/18 Now in AFIB with RVR Intermittent PVC's and NSVT Start Eliquis 5 mg BID Start amiodarone (IV bolus and drip, then switch to PO,explained side effects) Normal device check today Hold Bumex IVF bolus 500 cc NS LFT's and TSH in am NO ready for DC 10/29/18 Will continue to monitor due to multiple PVC's. Left BIV-ICD incision with dressing clean, no oozing, infection noted. Follow up in clinic in 2 wks for wound check and device interrogation. 10/28/18 Left BIV-ICD incision with dressing clean, no oozing noted. Follow up in clinic in 2 wks for wound check and device interrogation. 10/27/18 Left BIV-ICD incision with dressing clean, no oozing noted. Follow up in clinic in 2 wks for wound check and device interrogation. 10/26/18 Left BIV-ICD incision with dressing clean, no oozing noted. Okay to restart Heparin today.(SC) Follow up in clinic in 2 weeks for wound check and device interrogation. Continue Bumex. on OMT 10/24/2018 s/p [employer] BIV-ICD on 10/23/2018 Normal device check this am CXR this am-adequate lead position, no pneumothorax, increased vascular congestion One dose of Vancomycin this am Bumex 1 mg PO BID Left arm sling DC instructions explained. No Heparin in any form for 24 hours. Medications Inpatient acetaminophen, 325 mg= 1 Tab, Oral, Q6H, PRN amiodarone, 400 mg= 2 Tab, Oral, BID aspirin, 81 mg= 1 Tab, Oral, Daily calcium gluconate calcium gluconate calcium gluconate Coreg, 12.5 mg= 1 Tab, Oral, BID Desenex AF 2% topical powder, 1 Application, Topical, TID diazePAM, 5 mg= 1 Tab, Oral, BID, PRN doxycycline, 100 mg= 1 Cap, Oral, BID DuoNeb 0.5 mg-2.5 mg/3 mL inhalation solution, 3 mL, Nebulized Inhalation , RT_Q6H, PRN DuoNeb 0.5 mg-2.5 mg/3 mL inhalation solution, 3 mL, Nebulized Inhalation , RT_Q6H Eliquis, 5 mg= 1 Tab, Oral, [id number] magnesium sulfate, 2 Gram= 50 mL, IV Piggyback, Q2H, PRN magnesium sulfate, 2 Gram= 50 mL, IV Piggyback, Daily, PRN Mucinex, 1200 mg= 2 Tab, Oral, BID nystatin, [id number] Units= 10 mL, Swish and Swallow , Q6H pantoprazole, 40 mg= 1 Tab, Oral, Daily potassium chloride 10 mEq oral tablet, extended release, 40 mEq= 4 Tab, Oral, Daily potassium chloride 10 mEq/50 mL intravenous solution, 10 mEq= 50 mL, IV Piggyback, Q1H, PRN potassium chloride 20 mEq oral tablet, extended release, 60 mEq= 3 Tab, Oral, Q2H, PRN potassium chloride 20 mEq oral tablet, extended release, 20 mEq= 1 Tab, Oral, Q2H, PRN potassium chloride 20 mEq/15 mL oral liquid, 60 mEq= 45 mL, Feeding Tube, Q2H, PRN potassium chloride 20 mEq/15 mL oral liquid, 20 mEq= 15 mL, Feeding Tube, Q2H, PRN Pulmicort Respules, 0.5 mg= 2 mL, Nebulized Inhalation , BID sodium phosphate sodium phosphate Tessalon, 100 mg= 1 Cap, Oral, TID, PRN Zofran, 4 mg= 1 Tab, Oral, Q6H, PRN Home Advair Diskus 250 mcg-50 mcg inhalation powder, 1 Puff, Inhalation, BID aspirin 81 mg oral tablet, 81 mg= 1 Tab, Oral, Daily bumetanide 1 mg oral tablet, 1 mg= 1 Tab, Oral, Daily Coreg 25 mg oral tablet, 12.5 mg= 0.5 Tab, Oral, BID diazePAM 5 mg oral tablet, 5 mg= 1 Tab, Oral, Daily, PRN DuoNeb 0.5 mg-2.5 mg/3 mL inhalation solution, 3 mL, Nebulized Inhalation , Q6H, PRN Levaquin 500 mg oral tablet, 500 mg= 1 Tab, Oral, [id number] omeprazole 20 mg oral delayed release capsule, 40 mg= 2 Cap, Oral, Daily ProAir HFA 90 mcg/inh inhalation aerosol, 2 Puff, Inhalation, QID, PRN Singulair 10 mg oral tablet, 10 mg= 1 Tab, Oral, Daily Lab Results NOV 01 04:18 L 121 L 88 H 27 / 89 4.9 27 0.90 \ OCT 29 04:33 \ 12.2 / C 39.7 174 / 36.9 \ Electronically signed by Kavita [facility] Conversion Flush Tester Cerner at 11/28/2022 5:33 PM CDT documented in this encounter Plan of Treatment Upcoming Encounters Date Type Department Care Team (Late st Contact Info) Description 08/23/2025 12:45 PM EST Office Visit [facility] Electrophysiology [address] [place] [address] Vik Corcoran MD [address] [facility] [address] [place] [address] documented as of this encounter Visit Diagnoses Not on filedocumented in this encounter Care Teams Heart Surgeon Relationship Specialty Start Date End Date Alfred Cantu MD [address] [place] [address] PCP - General General Internal Medicine 08/29/22 Lyndsey Key MD [address] [place] [address] String Winding Machine Operator Interventional Cardiology 08/29/22 Vik Corcoran MD [address] [place] [address] [address] String Winding Machine Operator Electrophysiology 05/19/24 documented as of this encounter
--- OUTSIDE RECORDS SUMMARY | 2025-02-18 10:40 | XMS_ITS | Encounter Summary ---
Author Organization [employer] ([place], [place], [place], [place]) Address [address] [place] [address] Care Team Providers Care Occupational Therapy Teacher Name Role Phone Alfred Cantu MD Primary Care Provider [phone] Lyndsey Key MD Unavailable [phone] Vik Corcoran MD Unavailable Encounter Details Date Type Department Care Team (Late st Contact Info) Description 11/01/2018 Transcribed Document [facility] [place] [facility] [place] [address] ProviderRashard MD [address] [place] [id number] Social History Tobacco Use Types Packs/Day Years Used Date Smoking Tobacco: Never Assessed Comments Unknown Sex and Gender Information Value Date Recorded Sex Assigned at Not on file Legal Sex Female 1:15 PM CDT Gender Identity Not on file Sexual Orientation Not on file documented as of this encounter Miscellaneous Notes * Cerner Conversion Note - Rashard ProviderMD - 11/01/2018 12:02 PM CDT Patient: KATHY CARTER Age: 78 years Sex: Female : 1940 Associated Diagnoses: None Author: KASH BUTTS MD-[facility] Basic Information Admit information: Cardiomyopathy with ejection fraction about 25%. She also had low sodium about 127-128. I looked at the last year or 2 she never had a serum sodium of 129. Today her sodium dropped to 122 for consulted , Today's Information: Sodium 121 . Review of Systems Constitutional: Fever, Chills, Fatigue. Eye: No recent visual problem, No blurring. Respiratory: Cough, No shortness of breath. Gastrointestinal: No nausea, No vomiting. Genitourinary: No dysuria, No hematuria. Integumentary: No rash, No pruritus. Neurologic: Alert and oriented X4. Health Status Allergies.Current medications: Medications by Classification Antimicrobials doxycycline - 100 mg, Oral, Cap, BID, Routine Anticoagulant apixaban (Eliquis) - 5 mg, Oral, Tab, [id number], Routine Cardiovascular carvedilol (Coreg) - 12.5 mg, Oral, Tab, BID, Routine Respiratory albuterol-ipratropium (DuoNeb 0.5 mg-2.5 mg/3 mL inhalation - 3 mL, Nebulized Inhalation, Inh, RT_Q6H, Routine albuterol-ipratropium (DuoNeb 0.5 mg-2.5 mg/3 mL inhalation - 3 mL, Nebulized Inhalation, Inh, RT_Q6H, PRN for Cough, Routine budesonide (Pulmicort Respules) - 0.5 mg, Nebulized Inhalation , Inh, BID benzonatate (Tessalon) - 100 mg, Oral, Cap, TID, PRN for Cough, Routine guaiFENesin (Mucinex) - 1,200 mg, Oral, ER Tab, BID, Routine GI ondansetron (Zofran) - 4 mg, Oral, Tab, Q6H, PRN for Nausea, Routine pantoprazole - 40 mg, Oral, EC Tab, Daily, Routine magnesium sulfate - 2 Gram 50 mL, IV Piggyback, Inj, Daily, Administer over 2 Hour(s), PRN for Other (See Comment), Routine magnesium sulfate - 2 Gram 50 mL, IV Piggyback, Inj, Q2H, Administer over 2 Hour(s), PRN for Other (See Comment), Routine sodium phosphate - 15 mMole 5 mL, IV Piggyback, Daily, Administer over 5 Hour(s), PRN for Other (See Comment), Routine sodium phosphate - 15 mMole 5 mL, IV Piggyback, Q6H, Administer over 5 Hour(s), PRN for Other (See Comment), Routine Neuro magnesium sulfate - 2 Gram 50 mL, IV Piggyback, Inj, Daily, Administer over 2 Hour(s), PRN for Other (See Comment), Routine *Duplicate* magnesium sulfate - 2 Gram 50 mL, IV Piggyback, Inj, Q2H, Administer over 2 Hour(s), PRN for Other (See Comment), Routine *Duplicate* CLASSIFIER OPERATOR miconazole topical (Desenex AF 2% topical powder) - 1 Application, Topical, Powder, TID nystatin - 1,000,000 Units, Swish and Swallow, Liquid, Q6H, Routine Pain Meds aspirin - 81 mg, Oral, Tab, Daily, Routine acetaminophen - 325 mg, Oral, Tab, Q6H, PRN for Pain (Mild 1-3), Routine Sedatives diazePAM - 5 mg, Oral, Tab, BID, PRN for Anxiety, Routine Vitamins calcium gluconate - 1 Gram 10 mL, IV Piggyback, Daily, Administer over 60 Minute(s), PRN for Other (See Comment), Routine calcium gluconate - 2 Gram 20 mL, IV Piggyback, Daily, Administer over 60 Minute(s), PRN for Other (See Comment), Routine calcium gluconate - 2 Gram 20 mL, IV Piggyback, Q12H, Administer over 60 Minute(s), PRN for Other (See Comment), Routine magnesium sulfate - 2 Gram 50 mL, IV Piggyback, Inj, Daily, Administer over 2 Hour(s), PRN for Other (See Comment), Routine *Duplicate* magnesium sulfate - 2 Gram 50 mL, IV Piggyback, Inj, Q2H, Administer over 2 Hour(s), PRN for Other (See Comment), Routine *Duplicate* potassium chloride (potassium chloride 10 mEq oral tablet, e - 40 mEq 4 Tab, Oral, CR Tab, Daily, Routine potassium chloride (potassium chloride 10 mEq/50 mL intraven - 10 mEq 50 mL, IV Piggyback, Inj, Q1H, Administer over 1 Hour(s), PRN for Other (See Comment), Routine potassium chloride (potassium chloride 20 mEq oral tablet, e - 20 mEq 1 Tab, Oral, CR Tab, Q2H, PRN for Other (See Comment), Routine potassium chloride (potassium chloride 20 mEq oral tablet, e - 60 mEq 3 Tab, Oral, CR Tab, Q2H, PRN for Other (See Comment), Routine potassium chloride (potassium chloride 20 mEq/15 mL oral liq - 20 mEq 15 mL, Feeding Tube, Liquid, Q2H, PRN for Other (See Comment), Routine potassium chloride (potassium chloride 20 mEq/15 mL oral liq - 60 mEq 45 mL, Feeding Tube, Liquid, Q2H, PRN for Other (See Comment), Routine Undefined Medications amiodarone - 400 mg, Oral, Tab, BID, Routine Problem list: Active Problems (9) Allergic asthma Apnea, sleep Chronic GERD Dyspnea H/O hyperlipidemia H/O mitral valve insufficiency History of obstructive sleep apnea Hx of obesity Hypertension Physical Examination Intake and Output Intake & Output Totals Last 24 Hours (7a-7a) Intake (3 Events) Continuous Infusions (16.67 mL) Oral Fluids (360 mL) Output (5 Events) Urine Voided (Volume) (1550 mL) Input Total: 376.67 mL Output Total: 1550 mL Balance: -1173.33 mL , Weight (Daily) 10/22/2018 04:00 Routine Weight, Kilograms: 88.4 VS/Measurements Vitals Signs (last 24 hrs) Last Charted Minimum Maximum Temp 97.7 (NOV 01 06:00) 97.7 (NOV 01 06:00) 98.3 (OCT 31 20:07) Apical HR 78 (NOV 01 08:32) 78 (NOV 01 08:32) 95 (OCT 31 20:09) Mon HR 90 (NOV 01 11:04) 70 (NOV 01 02:30) 90 (OCT 31 17:02) Resp Rate 18 (NOV 01 11:04) 16 (OCT 31 18:00) 18 (OCT 31 16:09) SBP 116 (NOV 01 06:00) 100 (OCT 31 22:30) H 159 (OCT 31 17:00) DBP 80 (NOV 01 06:00) L 55 (OCT 31 17:02) H 107 (OCT 31 17:00) MAP 91 (NOV 01 06:00) 66 (OCT 31 17:02) 107 (OCT 31 17:00) SpO2 98 (NOV 01 11:04) 94 (OCT 31 18:00) 98 (NOV 01 11:04) General: Alert and oriented, No acute distress. Eye: Extraocular movements are intact, Normal conjunctiva. HENT: Normocephalic, Oral mucosa is moist. Neck: Supple, No jugular venous distention. Respiratory: Lungs are clear to auscultation, Symmetrical chest wall expansion. Cardiovascular: Normal rate, No murmur, No gallop, No edema. Gastrointestinal: Soft, Non-tender, Non-distended, Normal bowel sounds. Integumentary: Warm, Dry, Tilting. Neurologic: Alert, Oriented, No focal deficits. Psychiatric: Cooperative, Appropriate mood & affect, Normal judgment. Review / Management Results review: Labs (Last four charted values) WBC H 28.4 (NOV 01) C 35.1 (OCT 31) C 39.8 (OCT 30) C 39.7 (OCT 29) HB L 10.0 (NOV 01) L 10.5 (OCT 31) 11.7 (OCT 30) 12.2 (OCT 29) HCT L 29.8 (NOV 01) L 32.0 (OCT 31) 35.3 (OCT 30) 36.9 (OCT 29) Plt L 134 (NOV 01) L 138 (OCT 31) 169 (OCT 30) 174 (OCT 29) Na L 121 (NOV 01) C 120 (OCT 31) L 122 (OCT 31) L 126 (OCT 30) K 4.9 (NOV 01) 4.0 (OCT 31) 4.6 (OCT 30) 5.1 (OCT 28) Cl L 88 (NOV 01) L 86 (OCT 31) L 88 (OCT 30) L 92 (OCT 28) CO2 27 (NOV 01) 28 (OCT 31) 30 (OCT 30) 31 (OCT 28) BUN H 27 (NOV 01) H 39 (OCT 31) H 44 (OCT 30) H 48 (OCT 28) Cr 0.90 (NOV 01) H 1.20 (OCT 31) H 1.20 (OCT 30) 1.00 (OCT 28) Glu R 89 (NOV 01) H 119 (OCT 31) 91 (OCT 30) 93 (OCT 28) Ca 8.5 (NOV 01) L 8.3 (OCT 31) 9.0 (OCT 30) 9.4 (OCT 28) Lactic 0.8 (OCT 21) AST 21 (OCT 31) 18 (OCT 21) ALT 21 (OCT 31) 27 (OCT 21) ALK P 63 (OCT 31) 66 (OCT 21) T Bili 0.6 (OCT 31) 0.8 (OCT 21) PTN L 5.5 (OCT 31) L 6.2 (OCT 21) ALB L 2.8 (OCT 31) L 3.0 (OCT 21) Troponin H 0.079 (OCT 21) . NOV 01 04:18 L 121 L 88 H 27 / 89 4.9 27 0.90 \ NOV 01 04:18 \ L 10.0 / H 28.4 L 134 / L 29.8 \ SOsm 251, Uric Acid 6.8, TSH 0.491 Impression and Plan Dx and Plan Hyponatremia???clinically seems that hyponatremia is related to drinking a lot of water not eating much. She does admit of drinking a lot of water and low-sodium fluids. In the hospit She has dropped her sodium down to 122 interestingly she never had a serum sodium in the system above 129. She also has a finding on CT scan with lung nodule and not sure what kind of workup has been done on but there is always a suspicion of SIADH. So at this time my differential would be hypovolemic hyponatremia versus SIADH Acute kidney injury creatinine has jumped to 1.2 possibly because of diuresis better now Cardiomyopathy due to drug and external agent, Cardiomyopathy due to drug and external agent Plan At this time I would like to restrict her hypo-osmolar fluid intake to about 1200 mL a day Hyponatremia workup ordered not done She is not having much symptoms there is no need for giving hypotonic saline versus Samsca. Orders: Hypovolumic, skin dry , tilting, I will give IVNS now, check sodium Q6 hour, discussed with patient, she is asymptomatic at his time Pending Creatinine Urine Random Osmolality Urine Sodium Level Urine Random documented in this encounter Plan of Treatment Upcoming Encounters Date Type Department Care Team (Late st Contact Info) Description 08/23/2025 12:45 PM EST Office Visit [facility] Electrophysiology [address] [place] [address] Vik Corcoran MD [address] [place] [address] [address] [place] [id number] documented as of this encounter Visit Diagnoses Not on filedocumented in this encounter Care Teams Occupational Therapy Teacher Relationship Specialty Start Date End Date Alfred Cantu MD [address] [place] [id number] PCP - General General Internal Medicine 08/29/22 Lyndsey Key MD [address] [facility] [address] [place] [address] Title Attorney Interventional Cardiology 08/29/22 Vik Corcoran MD [address] [facility] [address] [place] [address] Title Attorney Electrophysiology 05/19/24 documented as of this encounter
--- OUTSIDE RECORDS SUMMARY | 2025-02-18 10:40 | XMS_ITS | Encounter Summary ---
Author Organization [employer] ([place], [place], [place], [place]) Address [address] [place] [address] Care Team Providers Care Manager Culinary Name Role Phone Alfred Cantu MD Primary Care Provider [phone] Lyndsey Key MD Unavailable [phone] Vik Corcoran MD Unavailable Reason for Visit * Reason Onset Date Comments Advice Only 01/10/2025 Encounter Details Date Type Department Care Team (Late st Contact Info) Description 01/10/2025 Telephone [facility] Cardiology [address] [place] [address] Vik Corcoran MD [address] [facility] [address] [place], [place] [id number] Advice Only Social History Tobacco Use Types Packs/Day Years [...] Date Ezra rded Speak language other than Swazi at home Not on file 08/29/2023 Want [...] as of this encounter Miscellaneous Notes * Telephone Encounter - Alejandro Lobo RN - 01/10/2025 3:18 PM EDT Spoke to patient's voice mail and encouraged her to give us a call back with her questions. * Telephone Encounter - Ann Steward - 01/10/2025 11:08 AM EDT Patient calling would like to speak with you Please contact patient [phone] documented in this encounter Plan of Treatment Upcoming Encounters Date Type Department Care Team (Late st Contact Info) Description 08/23/2025 12:45 PM EST Office Visit [facility] Electrophysiology [address] [place] [id number] [place] [address] [place] [address] [address] [place] [address] documented as of this encounter Visit Diagnoses Not on filedocumented in this encounter Care Teams Manager Culinary Relationship Specialty Start Date End Date Alfred Cantu MD [address] [place] [address] PCP - General General Internal Medicine 08/29/22 [place] [address] [place] [address] [address] [place], [place] [id number] Pinking Machine Operator Interventional Cardiology 08/29/22 [place] [address] [place] [address] [address] [place] [address] Pinking Machine Operator Electrophysiology 05/19/24 documented as of this encounter
--- OUTSIDE RECORDS SUMMARY | 2025-02-18 10:40 | XMS_ITS | Encounter Summary ---
Author Organization [employer] ([place], [place], [place], [place]) Address [address] [place] [address] Care Team Providers Care Anthropology Instructor Name Role Phone Alfred Cantu MD Primary Care Provider [phone] Lyndsey Key MD Unavailable [phone] Vik Corcoran MD Unavailable Encounter Details Date Type Department Care Team (Late st Contact Info) Description 11/01/2018 Transcribed Document [facility] [place] [address] ProviderRashard MD [address] [place] [id number] Social History Tobacco Use Types Packs/Day Years Used Date Smoking Tobacco: Never Assessed Comments Unknown Sex and Gender Information Value Date Recorded Sex Assigned at Not on file Legal Sex Female 1:15 PM CDT Gender Identity Not on file Sexual Orientation Not on file documented as of this encounter Miscellaneous Notes * Cerner Conversion Note - Rashard Gonzalez MD - 11/01/2018 10:37 AM CDT Patient: KATHY CARTER Age: 78 years Sex: Female : 1940 Associated Diagnoses: None Author: CLARE LIVINGSTON MD-INF History of Present Illness 10/28/18 - Initial hospital visit for this very pleasant 78 yr old with CC high WBC has hx of CM Recently admitted to [facility] for 3 days - then sent here had PPM placed here Found to have RSV pneumonia Was treated with antibiotics, then steroids, on taper co cough no fever or chills now co pain at PPM site 10/29 - I feel fine no fever chills rash GI CR issues notes bruising at PPM site 10/30 - co weakness. no fevers, chills, rash, nausea, diarrhea, dysuria. has mild cough. 11/01 - No Hx available Review of Systems Constitutional: Fever, Chills, Sweats, Weakness, Fatigue, Decreased activity. Eye: No icterus. Ear/Nose/Mouth/Throat: Decreased hearing: Bilaterally. Respiratory: Shortness of breath, Cough. Cardiovascular: Peripheral edema. Gastrointestinal: No nausea, No vomiting, No diarrhea. Genitourinary: Dysuria. Hematology/Lymphatics: No swollen lymph glands. Endocrine: No excessive hunger. Immunologic: Malaise. Musculoskeletal: Joint pain. Integumentary: No rash. Neurologic: Alert and oriented X4. Psychiatric: Anxiety, Depression. Health Status Allergies: Allergic Reactions (Selected) Severity Not Documented Latex- No reactions were documented. Statins- No reactions were documented. Sulfa drugs- No reactions were documented., Allergies (3) Active Reaction Latex None Documented statins None Documented sulfa drugs None Documented Current medications: (Selected) Inpatient Medications Ordered Core.5 mg, Oral, BID Desenex AF 2% topical powder: 1 Application, Topical, TID DuoNeb 0.5 mg-2.5 mg/3 mL inhalation solution: 3 mL, Nebulized Inhalation, RT_Q6H DuoNeb 0.5 mg-2.5 mg/3 mL inhalation solution: 3 mL, Nebulized Inhalation, RT_Q6H, PRN: Cough Eliquis: 5 mg, Oral, [id number] Mucinex: 1,200 mg, Oral, BID Pulmicort Respules: 0.5 mg, Nebulized Inhalation, BID Tessalon: 100 mg, Oral, TID, PRN: Cough Zofran: 4 mg, Oral, Q6H, PRN: Nausea acetaminophen: 325 mg, Oral, Q6H, PRN: Pain (Mild 1-3) amiodarone: 400 mg, Oral, BID aspirin: 81 mg, Oral, Daily calcium gluconate: 1 Gram, 10 mL, 60 mL/Hr, IV Piggyback, Daily, PRN: Other (See Comment) calcium gluconate: 2 Gram, 20 mL, 120 mL/Hr, IV Piggyback, Daily, PRN: Other (See Comment) calcium gluconate: 2 Gram, 20 mL, 120 mL/Hr, IV Piggyback, Q12H, PRN: Other (See Comment) diazePAM: 5 mg, Oral, BID, PRN: Anxiety doxycycline: 100 mg, Oral, BID magnesium sulfate: 2 Gram, 50 mL, 25 mL/Hr, IV Piggyback, Daily, PRN: Other (See Comment) magnesium sulfate: 2 Gram, 50 mL, 25 mL/Hr, IV Piggyback, Q2H, PRN: Other (See Comment) nystatin: 1,000,000 Units, Swish and Swallow, Q6H pantoprazole: 40 mg, Oral, Daily potassium chloride 10 mEq oral tablet, extended release: 40 mEq, 4 Tab, Oral, Daily potassium chloride 10 mEq/50 mL intravenous solution: 10 mEq, 50 mL, 50 mL/Hr, IV Piggyback, Q1H, PRN: Other (See Comment) potassium chloride 20 mEq oral tablet, extended release: 20 mEq, 1 Tab, Oral, Q2H, PRN: Other (See Comment) potassium chloride 20 mEq oral tablet, extended release: 60 mEq, 3 Tab, Oral, Q2H, PRN: Other (See Comment) potassium chloride 20 mEq/15 mL oral liquid: 20 mEq, 15 mL, Feeding Tube, Q2H, PRN: Other (See Comment) potassium chloride 20 mEq/15 mL oral liquid: 60 mEq, 45 mL, Feeding Tube, Q2H, PRN: Other (See Comment) sodium phosphate: 15 mMole, 5 mL, 50 mL/Hr, IV Piggyback, Daily, PRN: Other (See Comment) sodium phosphate: 15 mMole, 5 mL, 50 mL/Hr, IV Piggyback, Q6H, PRN: Other (See Comment) Prescriptions Prescribed Coreg 25 mg oral tablet: 0.5 Tab, Oral, BID, for 30 Day(s), 30 Tab, 0 Refill(s) DuoNeb 0.5 mg-2.5 mg/3 mL inhalation solution: 3 mL, Nebulized Inhalation, Q6H, for 7 Day(s), PRN: Dyspnea, 90 mL, 0 Refill(s) Levaquin 500 mg oral tablet: 1 Tab, Oral, [id number], for 7 Day(s), 7 Tab, 0 Refill(s) Mucinex 600 mg oral tablet, extended release: 2 Tab, Oral, BID, for 5 Day(s), 20 Tab, 0 Refill(s) bumetanide 1 mg oral tablet: 1 Tab, Oral, Daily, for 30 Day(s), 30 Tab, 0 Refill(s) Documented Medications Documented Advair Diskus 250 mcg-50 mcg inhalation powder: 1 Puff, Inhalation, BID, 28 Each, 0 Refill(s) ProAir HFA 90 mcg/inh inhalation aerosol: 2 Puff, Inhalation, QID, PRN: for wheezing, 0 Refill(s) Singulair 10 mg oral tablet: 1 Tab, Oral, Daily, 0 Refill(s) aspirin 81 mg oral tablet: 1 Tab, Oral, Daily, 30 Tab, 0 Refill(s) diazePAM 5 mg oral tablet: 1 Tab, Oral, Daily, PRN: for anxiety, 0 Refill(s) omeprazole 20 mg oral delayed release capsule: 2 Cap, Oral, Daily, 0 Refill(s), Medications (29) Active Scheduled: (12) albuterol-ipratropium inh 3 mL 3 mL, Nebulized Inhalation, RT_Q6H amiodarone 200 mg tab 400 mg 2 Tab, Oral, BID apixaban 5 mg tab 5 mg 1 Tab, Oral, B64LEze aspirin 81 mg chew tab 81 mg 1 Tab, Oral, Daily budesonide 0.5 mg/2 mL inh susp 0.5 mg 2 mL, Nebulized Inhalation, BID carvedilol 12.5 mg tab 12.5 mg 1 Tab, Oral, BID doxycycline hyclate 100 mg cap 100 mg 1 Cap, Oral, BID guaiFENesin 600 mg ER tab 1,200 mg 2 Tab, Oral, BID miconazole nitrate 2% pwd 45 g 1 Application, Topical, TID nySTATin 100,000 unit/mL susp 5 mL 1,000,000 Units 10 mL, Swish and Swallow, Q6H pantoprazole EC 40 mg tab 40 mg 1 Tab, Oral, Daily potassium chloride CR 10 mEq tab 40 mEq 4 Tab, Oral, Daily Continuous: (0) PRN: (17) acetaminophen 325 mg tab 325 mg 1 Tab, Oral, Q6H albuterol-ipratropium inh 3 mL 3 mL, Nebulized Inhalation, RT_Q6H benzonatate 100 mg cap 100 mg 1 Cap, Oral, TID calcium gluconate 1 Gram 10 mL, IV Piggyback, Daily calcium gluconate 2 Gram 20 mL, IV Piggyback, Daily calcium gluconate 2 Gram 20 mL, IV Piggyback, Q12H diazepam 5 mg tab 5 mg 1 Tab, Oral, BID magnesium sulfate 2 Gram 50 mL, IV Piggyback, Daily magnesium sulfate 2 Gram 50 mL, IV Piggyback, Q2H ondansetron 4 mg tab 4 mg 1 Tab, Oral, Q6H potassium chloride 10 mEq 50 mL, IV Piggyback, Q1H potassium chloride 20 mEq/15 mL liq 20 mEq 15 mL, Feeding Tube, Q2H potassium chloride 20 mEq/15 mL liq 60 mEq 45 mL, Feeding Tube, Q2H potassium chloride CR 20 mEq tab 20 mEq 1 Tab, Oral, Q2H potassium chloride CR 20 mEq tab 60 mEq 3 Tab, Oral, Q2H sodium phosphate 15 mMole 5 mL, IV Piggyback, Daily sodium phosphate 15 mMole 5 mL, IV Piggyback, Q6H Problem list: Medical History of obstructive sleep apnea / IMO [id number] / Confirmed, Active Problems (9) Allergic asthma Apnea, sleep Chronic GERD Dyspnea H/O hyperlipidemia H/O mitral valve insufficiency History of obstructive sleep apnea Hx of obesity Hypertension Histories Past Medical History: No active or resolved past medical history items have been selected or recorded. Family History: No family history items have been selected or recorded. Procedure history: CHOLECYSTECTOMY (27582). hysterectomy. sinus surgery. cataract surgery - bilateral. upper gi. Comments: 07/08/2017 07:51 - ISRA JONES RN ulcers. colonoscopty. Social History Social & Psychosocial Habits Alcohol 07/08/2017 Alcohol Use History, Social Habits No Substance Abuse 07/08/2017 Recreational Drug Use History No Recreational Drug Use Last 12 Months No Tobacco 07/08/2017 Smoking Status Never smoker . Past medical history Anxiety Mitral regurg Hyperlipidemia Hypertension Asthma Past surgical history cholecystectomy Hysterectomy Family history: positive for heart disease Social history : she denies smoking, alcohol, or illicit drug use Physical Examination VS/Measurements Vitals Signs (last 24 hrs) Last Charted Minimum Maximum Temp 97.7 (NOV 01 06:00) 97.7 (NOV 01 06:00) 98.3 (OCT 31 20:07) Apical HR 78 (NOV 01 08:32) 78 (NOV 01 08:32) 95 (OCT 31 20:09) Mon HR 84 (NOV 01 06:00) 70 (NOV 01 02:30) 90 (OCT 31 17:02) Resp Rate 18 (NOV 01 06:00) 16 (OCT 31 18:00) 18 (OCT 31 10:47) SBP 116 (NOV 01 06:00) 100 (OCT 31 22:30) H 159 (OCT 31 17:00) DBP 80 (NOV 01 06:00) L 55 (OCT 31 17:02) H 107 (OCT 31 17:00) MAP 91 (NOV 01:00) 66 (OCT 31:02) 107 (OCT 31 17:00) SpO2 95 (NOV 01 06:00) 94 (OCT 31 18:00) 95 (NOV 01 06:00) General: Alert and oriented, No acute distress. Eye: Pupils are equal, round and reactive to light, Normal conjunctiva. HENT: Normocephalic, Oral mucosa is moist. Neck: Supple, Non-tender. Respiratory: Lungs are clear to auscultation, Respirations are non-labored. Cardiovascular: Normal rate, Regular rhythm, No murmur. Gastrointestinal: Soft, Non-tender. Genitourinary: Exam deferred. Musculoskeletal: Normal range of motion, Normal strength. Integumentary: Warm, Dry. Neurologic: Alert, Oriented. Cognition and Speech: Oriented, Speech clear and coherent. Psychiatric: Cooperative, Appropriate mood & affect, Normal judgment. 11/01 - Resting comfortably no rash mild distention Review / Management Results review: Labs (Last [...] 21) Troponin H 0.079 (OCT 21) . Impression and Plan -- Marked neutrophilic leukocytosis - worse despite steroid taper -- RSV pneumonia -- LLL infiltrate -- CM - EF low -- PPM placed 10/23 -- Sulfa allergy -- dysuria High WBC not fully explained Doxycycline WBC better, pt non-toxic and negative cultures UM discussed with staff If discharged will need close follow-up - can see next week if local Physician can't Electronically signed by [facility], [facility] Conversion Development Mechanic Cerner at 11/28/2022 5:31 PM CDT documented in this encounter Plan of Treatment Upcoming Encounters Date Type Department Care Team (Late st Contact Info) Description 08/23/2025 12:45 PM EST Office Visit [facility] Electrophysiology [address] [place] [address] [place] [address] [place] [address] [address] [place] [address] documented as of this encounter Visit Diagnoses Not on filedocumented in this encounter Care Teams Anthropology Instructor Relationship Specialty Start Date End Date Alfred Cantu MD [address] [place] [address] PCP - General General Internal Medicine 08/29/22 [place] [address] [place] [address] [address] [place] [address] [employer] Machine Operator Interventional Cardiology 08/29/22 Vik Corcoran MD [address] [facility] [address] [place] [address] [employer] Machine Operator Electrophysiology 05/19/24 documented as of this encounter
--- OUTSIDE RECORDS SUMMARY | 2025-02-18 10:40 | XMS_ITS | Encounter Summary ---
Author Organization [employer] ([place], [place], [place], [place]) Address [address] [place] [address] Care Team Providers Care Mitering Machine Operator Name Role Phone Alfred Cantu MD Primary Care Provider [phone] Lyndsey Key MD Unavailable [phone] Vik Corcoran MD Unavailable Encounter Details Date Type Department Care Team (Late st Contact Info) Description 11/01/2018 Transcribed Document [facility] [place] [facility] [place] [address] ProviderRashard MD [address] [place] [address] Social History Tobacco Use Types Packs/Day Years Used Date Smoking Tobacco: Never Assessed Comments Unknown Sex and Gender Information Value Date Recorded Sex Assigned at Not on file Legal Sex Female 1:15 PM CDT Gender Identity Not on file Sexual Orientation Not on file documented as of this encounter Miscellaneous Notes * Cerner Conversion Note - Rashard ProviderMD - 11/01/2018 2:00 AM CDT Search Engine Optimization Analyst Details Entered On: 11/01/2018 4:40 EDT Performed On: 11/01/2018 2:00 EDT by Ashu Ross Rn Order Details Transport Mode Order Detail : Ambulatory Isolation Precautions Order Detail : Droplet precautions Order Detail : N/A IV Order Detail : 1 Oxygen Order Detail : 1 Nurse Collect Order Detail : 0 Lift/Transfer : Minimal Central Line Order Detail : No Room Service : Appropriate Arterial Line : No Ashu Ross Rn - 11/01/2018 4:39 EDT Electronically signed by [facility], [facility] Conversion Sanitor Cerner at 11/28/2022 5:34 PM CDT documented in this encounter Plan of Treatment Upcoming Encounters Date Type Department Care Team (Late st Contact Info) Description 08/23/2025 12:45 PM EST Office Visit [facility] Electrophysiology [address] [place] [phone] Vik Corcoran MD [address] [place] [address] [address] [place], [place] [id number] documented as of this encounter Visit Diagnoses Not on filedocumented in this encounter Care Teams Mitering Machine Operator Relationship Specialty Start Date End Date Alfred Cantu MD [address] [place] [address] PCP - General General Internal Medicine 08/29/22 Lyndsey Key MD [address] [place] [address] [address] Traveling Engineer Interventional Cardiology 08/29/22 Vik Corcoran MD [address] [place] [address] [address] Traveling Engineer Electrophysiology 05/19/24 documented as of this encounter
--- OUTSIDE RECORDS SUMMARY | 2025-02-18 10:40 | XMS_ITS | Encounter Summary ---
Author Organization [employer] ([place], [place], [place], [place]) Address [address] [place] [address] Care Team Providers Care Patternmaker Sample Name Role Phone Alfred Cantu MD Primary Care Provider [phone] Lyndsey Key MD Unavailable [phone] Vik Corcoran MD Unavailable Encounter Details Date Type Department Care Team (Late st Contact Info) Description 11/02/2018 Transcribed Document [facility] [place] Family Medicine [facility] [place] [address] ProviderRashard MD [address] [place] [address] Social History Tobacco Use Types Packs/Day Years Used Date Smoking Tobacco: Never Assessed Comments Unknown Sex and Gender Information Value Date Recorded Sex Assigned at Not on file Legal Sex Female 1:15 PM CDT Gender Identity Not on file Sexual Orientation Not on file documented as of this encounter Miscellaneous Notes * Cerner Conversion Note - Rashard ProviderMD - 11/02/2018 12:22 PM CDT [address] , [place] [address] Patient Copy Patient Information: Name: KATHY JIMENEZ Current Date: 11/02/2018 12:22:47 : 1940 Patient [address]: [address] [place], [place] [address] [address] Patient Attending Physician: CARMELLA MEI MD-INT Primary Care Provider: ZAY, NOT LISTED Primary Care Provider Phone: Discharge Diagnosis: Weight on Admission: 194 lb, 1 oz Weight at Discharge: 186 lb, 3 oz Comment: Follow-up Instructions: With: Address: When: KASH BUTTS [address] [place] [address], [address] [place] [address] Business (1) Within 2 to 4 weeks [...] assistance finding a family MD please call [phone]. With: Address: When: NAZANIN NAVA [address] [place] [address]., [address] [place] [id number] [facility] (1) 9:00 AM Comments: You will have [...] the dressing Medical Equipment for Home Use: [facility] for bedside commode and nebulizer [phone] Home Health Services: [facility] [phone] Immunizations Documented During Stay: No Immunizations Found [...] Discharge Instructions (if any): Final Medication List: [facility], [place] [address], [phone] amiodarone (amiodarone 200 mg oral tablet) 2 [...] Follow these instructions at home: Medicines??? Take xjpf-nqo-ykezdfw and prescription medicines only as told by [...] and water are not available, use hand costume technician. ? Change your dressing as told by [...] radio towers. ??? Do notuse amateur ( Nexamp ) radio equipment or electric ( arc [...] Revised: 01/02/2017 Document Reviewed: 04/21/2016 ? 2017 Elsevier Incentive Spirometer An incentive spirometer is a [...] 12/08/2007 Document Revised: 04/21/2017 Document Reviewed: 03/06/2015 [employer] Interactive Patient Education ? 2017 Placed. Smoking Hazards Smoking cigarettes is extremely bad [...] increased risk of the following: ??? Sudden infant syndrome (SIDS). ? Respiratory infections. ? Lung [...] contain harmful chemicals. FOR MORE INFORMATION ??? [place] [employer] Association: www.lung.org ??? [place] [employer] Society: www.cancer.org This information is not intended to replace advice given to you by your health care provider. Make sure you discuss any questions you have with your health care provider. Document Released: 09/04/2005 Document Revised: 11/18/2016 Document Reviewed: 01/17/2014 ElseLineMetrics Interactive Patient Education ? 2017 [employer] Inc. Heart-Healthy Eating Plan Many factors influence your [...] foods can I eat? Grains Breads, including Welsh, white, serenity, wheat, raisin, rye, oatmeal, and [place]. Tortillas that are neither fried nor made with lard or trans fat. Low-fat rolls, including hotdog and hamburger buns and Croatian muffins. Biscuits. Muffins. Waffles. Pancakes. Light popcorn. Whole-grain cereals. Flatbread. Edmond toast. Pretzels. Breadsticks. Rusks. Low-fat snacks and [...] cheese. Whole milk cheeses, including blue (henry), Riverside Gary, Brie, Hyaes, Lithuanian, Havarti, French, cheddar, Camembert, and Riverside. Whole or 2% milk that is liquid, [...] that has suet, meat fat, or shortening. [place] butter, hydrogenated oils, palm oil, coconut oil, [...] 05/06/2009 Document Revised: 02/14/2017 Document Reviewed: 01/19/2015 Cognea Interactive Patient Education ? 2017 C[employer] Inc. How to Take a Pulse Your [...] 02/01/2004 Document Revised: 02/14/2017 Document Reviewed: 12/31/2016 Cognea Interactive Patient Education ? 2017 [employer] Inc. How to Take Your Blood Pressure [...] 07/10/2009 Document Revised: 08/18/2015 Document Reviewed: 09/22/2014 Cognea Interactive Patient Education ? 2017 [employer] Inc. Cardiomyopathy, Adult Cardiomyopathy is a long-term [...] Other treatments may include cardiac resynchronization therapy (COMPUTER DRAFTER) or a left ventricular assist device (LVAD). [...] to manage stress. General instructions ??? Take weqx-fkd-akwchtt and prescription medicines only as told by [...] 10/10/2005 Document Revised: 03/25/2017 Document Reviewed: 01/27/2017 Elsevier Interactive Patient Education ? 2017 [employer] Inc. Medication Leaflets: bumetanide (oral/injection) (bystephen ORTEGA a nide) Bumex What is the most important information I should know about bumetanide? You should not use bumetanide if you are unable to urinate, if you have severe kidney or liver disease, if you are severely dehydrated, or if you have an electrolyte imbalance (low potassium or magnesium). What is bumetanide? Bumetanide is diuretic that is used to treat fluid retention (edema) in people with congestive heart failure, liver disease, or a kidney disorder such as nephrotic syndrome. Bumetanide may also be used for purposes not listed in this medication guide. What should I discuss with my healthcare provider before using bumetanide? You should not use bumetanide if you are allergic to it, or if you have: ? severe kidney disease or are unable to urinate; ?? severe liver disease or cirrhosis; ?? severe dehydration; or ?? an electrolyte imbalance (such as low levels of potassium or magnesium in your blood). Tell your doctor if you have ever had: ? a heart rhythm disorder; ?? liver disease; ?? kidney disease (or if you are on dialysis); ?? gout; ?? an allergy to sulfa drugs; or ?? if you are on a low-salt diet. Tell your doctor if you are or breast-feeding. Bumetanide is not approved for use by anyone younger than 18 years old. How should I take bumetanide? Follow all directions on your prescription label and read all medication guides or instruction sheets. Your doctor may occasionally change your dose. Use the medicine exactly as directed. Bumetanide injection is injected into a muscle, or given as an infusion into a vein. A healthcare provider will give you this injection if you are unable to take the medicine by mouth. Bumetanide will make you urinate more often and you may get dehydrated easily. Follow your doctor's instructions about taking potassium supplements or getting enough salt and potassium in your diet. Call your doctor if you are sick with vomiting or diarrhea, or if you are sweating more than usual. You can easily become dehydrated while taking bumetanide. This can lead to very low blood pressure, a serious electrolyte imbalance, or kidney failure. You will need frequent medical tests. Store at room temperature away from heat, moisture, and light. What happens if I miss a dose? Bumetanide is sometimes used only once, so you may not be on a dosing schedule. If you are on a dosing schedule, take the medicine as soon as you can, but skip the missed dose if it is almost time for your next dose. Do not take two doses at one time. What happens if I overdose? Seek emergency medical attention or call the Poison Help line at . Overdose symptoms may include extreme dizziness or weakness, confusion, loss of appetite, stomach cramps, and vomiting. What should I avoid while taking bumetanide? Avoid becoming dehydrated. Follow your doctor's instructions about the type and amount of liquids you should drink while you are taking bumetanide. What are the possible side effects of bumetanide Get emergency medical help if you have signs of an allergic reaction: hives; difficult breathing; swelling of your face, lips, tongue, or throat. Call your doctor at once if you have: ? hearing problems; ?? confusion, hallucinations, problems with thought or memory; ?? trouble speaking or understanding what is said to you; ?? unusual weakness; ?? twitching, or a seizure; ?? weak or shallow breathing; ?? easy bruising, unusual bleeding, purple or red spots under your skin; ?? low magnesium--dizziness, irregular heartbeats, feeling jittery, muscle cramps, muscle spasms, cough or choking feeling; ?? low potassium level--leg cramps, constipation, irregular heartbeats, fluttering in your chest, increased thirst or urination, numbness or tingling, muscle weakness or limp feeling; or ?? dehydration symptoms--feeling very thirsty or hot, being unable to urinate, heavy sweating, or hot and dry skin. Common side effects may include: ? muscle cramps; ?? dizziness; ?? low blood presure; ?? nausea; or ?? headache. This is not a complete list of side effects and others may occur. Call your doctor for medical advice about side effects. You may report side effects to FDA at 9-987-NHG-6044. What other drugs will affect bumetanide? Bumetanide can harm your kidneys, especially if you also use certain medicines for infections, cancer, osteoporosis, organ transplant rejection, bowel disorders, or pain or arthritis (including aspirin, Tylenol, Advil, and Aleve). Tell your doctor about all your other medicines, especially: ? lithium; ?? digoxin; ?? probenecid; ?? indomethacin; ?? blood pressure medication; or ?? any other diuretic. This list is not complete. Other drugs may affect bumetanide, including prescription and aqzh-azy-swflhbr medicines, vitamins, and herbal products. Not all possible drug interactions are listed here. Where can I get more information? Your pharmacist can provide more information about bumetanide. Remember, keep this and all other medicines out of the reach of children, never share your medicines with others, and use this medication only for the indication prescribed. Every effort has been made to ensure that the information provided by [employer]. ('Multum') is accurate, up-to-date, and complete, but no guarantee is made to that effect. Drug information contained herein may be time sensitive. [employer] information has been compiled for use by healthcare practitioners and consumers in the [place] and therefore [employer] does not warrant that uses outside of the [place] are appropriate, unless specifically indicated otherwise. Skim[employer]s drug information does not endorse drugs, diagnose patients or recommend therapy. [employer]im[employer] drug information is an informational resource designed [...] effective or appropriate for any given patient. [employer] does not assume any responsibility for any aspect of healthcare administered with the aid of information [employer] provides. The information contained herein is not intended to cover all possible uses, directions, precautions, warnings, drug interactions, allergic reactions, or adverse effects. If you have questions about the drugs you are taking, check with your doctor, nurse or pharmacist. Copyright 3311-9896 [employer]. Version: 7.01. Revision Date: 08/13/2018. carvedilol (PRABHJOT ve dil ole) Coreg, Coreg CR What is the most important information I [...] may report side effects to FDA at 7-735-NVT-5259. What other drugs will affect carvedilol? Other drugs may interact with carvedilol, including prescription and xdud-ube-ztjrlkg medicines, vitamins, and herbal products. Tell each [...] to ensure that the information provided by [employer]. ('Multum') is accurate, up-to-date, and complete, but no guarantee is made to that effect. Drug information contained herein may be time sensitive. Cognio information has been compiled for use by healthcare practitioners and consumers in the [place] and therefore [employer] does not warrant that uses outside of the [place] are appropriate, unless specifically indicated otherwise. [employer] aka [employer] drug information does not endorse drugs, diagnose patients or recommend therapy. [employer] aka [employer] drug information is an informational resource designed [...] effective or appropriate for any given patient. [employer] does not assume any responsibility for any aspect of healthcare administered with the aid of information C[employer] provides. The information contained herein is not intended to cover all possible uses, directions, precautions, warnings, drug interactions, allergic reactions, or adverse effects. If you have questions about the drugs you are taking, check with your doctor, nurse or pharmacist. Copyright 5834-7516 [employer]. Version: 15.. Revision Date: 08/30/2013. albuterol and ipratropium (inhalation) [...] medicine to make up the missed dose. Electronically signed by [employer] Supervisor Grounds And Landscape Cerner at 11/28/2022 5:30 PM CDT documented in this encounter Plan of Treatment Upcoming Encounters Date Type Department Care Team (Late st Contact Info) Description 08/23/2025 12:45 PM EST Office Visit [facility] Electrophysiology [address] [place] [address] Vik Corcoran MD [address] [facility] [address] [place] [address] documented as of this encounter Visit Diagnoses Not on filedocumented in this encounter Care Teams Patternmaker Sample Relationship Specialty Start Date End Date Alfred Cantu MD [address] [place] [address] [place] [address] PCP - General General Internal Medicine 08/29/22 Lyndsey Key MD [address] [place] [address] [address] Plastic Surgery Assistant Interventional Cardiology 08/29/22 Vik Corcoran MD [address] [place] [address] [id number] Plastic Surgery Assistant Electrophysiology 05/19/24 documented as of this encounter
--- OUTSIDE RECORDS SUMMARY | 2025-02-18 10:40 | XMS_ITS | Encounter Summary ---
Author Organization [employer] ([place], [place], [place], [place]) Address [address] [place] [address] Care Team Providers Care Crown Pouncer Name Role Phone Alfred Cantu MD Primary Care Provider [phone] Lyndsey Key MD Unavailable [phone] Vik Corcoran MD Unavailable Encounter Details Date Type Department Care Team (Late st Contact Info) Description 11/01/2018 Transcribed Document [facility] [place] Family Medicine [facility] [place] [address] ProviderRashard MD [address] [place] [id number] Social History Tobacco Use Types Packs/Day Years Used Date Smoking Tobacco: Never Assessed Comments Unknown Sex and Gender Information Value Date Recorded Sex Assigned at Not on file Legal Sex Female 1:15 PM CDT Gender Identity Not on file Sexual Orientation Not on file documented as of this encounter Miscellaneous Notes * Cerner Conversion Note - Historical ProviderMD - 11/01/2018 8:24 AM CDT Patient: KATHY CARTER Age: 78 years Sex: Female : 1940 Associated Diagnoses: None Author: JEREMY EISENBERG, -INT Basic Information Admit information: No complaints today, pt feels well. Review of Systems Constitutional: No fever, No chills. Eye: No recent visual problem, No icterus, No blurring, No visual disturbances. Respiratory: No shortness of breath, No cough. Cardiovascular: No chest pain, No palpitations, No syncope. Gastrointestinal: No nausea, No vomiting, No hematemesis. Musculoskeletal: No joint pain, No muscle pain. Integumentary: No rash, No pruritus, No breakdown. Neurologic: No confusion, No numbness. Psychiatric: No depression, Not delusional. Health Status Allergies: Allergic Reactions (Selected) Severity [...] RT_Q6H, PRN: Cough Eliquis: 5 mg, Oral, [id number] Mucinex: 1,200 mg, Oral, BID Pulmicort Respules: [...] 500 mg oral tablet: 1 Tab, Oral, [id number], for 7 Day(s), 7 Tab, 0 Refill(s) [...] mg tab 5 mg 1 Tab, Oral, [id number] aspirin 81 mg chew tab 81 mg [...] History of obstructive sleep apnea / IMO [id number] / Confirmed, Active Problems (9) Allergic asthma Apnea, sleep Chronic GERD Dyspnea H/O hyperlipidemia H/O mitral valve insufficiency History of obstructive sleep apnea Hx of obesity Hypertension Physical Examination VS/Measurements Vitals Signs (last 24 hrs) Last Charted Minimum Maximum Temp 97.7 (NOV 01 06:00) 97.7 (NOV 01 06:00) 98.3 (OCT 31 20:07) Apical HR 95 (OCT 31 20:09) 89 (OCT 31 15:36) 95 (OCT 31 20:09) Mon HR 84 (NOV 01 06:00) 70 (NOV 01 02:30) 90 (OCT 31:02) Resp Rate 18 (NOV 01 06:00) 16 (OCT 31 18:00) 18 (OCT 31 10:47) SBP 116 (NOV 01 06:00) 100 (OCT 31 22:30) H 159 (OCT 31 17:00) DBP 80 (NOV 01 06:00) L 55 (OCT 31 17:02) H 107 (OCT 31 17:00) MAP 91 (NOV 01 06:00) 66 (OCT 31 17:02) 107 (OCT 31 17:00) SpO2 95 (NOV 01 06:00) 94 (OCT 31 18:00) 95 (OCT 31 09:00) General: Alert and oriented, No acute distress. Eye: Extraocular movements are intact, Normal conjunctiva. Sclera: Not icteric. HENT: Normocephalic, Normal hearing, Oral mucosa is moist. Neck: Supple, Non-tender, No jugular venous distention, No lymphadenopathy. Respiratory: Lungs are clear to auscultation, Respirations are non-labored, Breath sounds are equal, Symmetrical chest wall expansion. Cardiovascular: Good pulses equal in all extremities, No edema, Systolic murmur. Gastrointestinal: Soft, Non-tender, Non-distended, Normal bowel sounds, No organomegaly. Musculoskeletal: Normal range of motion, Normal strength, No tenderness, No swelling, No deformity. Integumentary: Warm, [place], Moist, No rash. Neurologic: Alert, Oriented, Normal sensory, Normal motor function, No focal deficits, Cranial Nerves II-XII are grossly intact. Psychiatric: Cooperative, Appropriate mood & affect, Normal [...] (OCT 21) Troponin H 0.079 (OCT 21) , NOV 01 04:18 L 121 L 88 H 27 / 89 4.9 27 0.90 \ NOV 01 04:18 \ L 10.0 / H 28.4 L 134 / L 29.8 \, No Radiology Results Found. 5 mm nodule in the right mid lung. Right lower lobe consolidation and small right pleural effusion. Impression and Plan 1. Leukocytosis: persistent and consistently >30k. High risk for PNA but no significant symptoms. CT chest from 10/28/2018 shows right lower lobe consolidation and small right pleural effusion. Recent AICD but pocket looks ok. Blood cx negative so far, appreciate ID consultation. - cont doxy for now 2. A. fib with RVR. Also had multiple PVCs and nonsustained V. tach. Controlled with amiodarone and Coreg. Anticoagulated with Eliquis. Now back in normal sinus rhythm. EP was consulted with plan for PETER and cardioversion Friday. However this has been canceled since she is now back in normal sinus rhythm and rate controlled. 3. 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 Creatinine 0.9 today. ACEi held. - monitor BMP - consider adding back ARB or spironolactone as needed 4. Orthostatic hypotension: improved after decrease her meds and severe MR with aggressive diuresis. BP stable 5. Acute systolic CHF, duration unknown. Echo showing LVEF of 15-25%. EP consulted and s/p Bi-V implant. - monitor I&O and daily weights - continue coreg, aspirin, would hold on spironolactone,valsartan,with slightly increasing creatinine in face of diuresis 6. RSV bronchitis- improving and on pulmicort - continue nebs and mucinex 7. Hyponatremia: She appears to have chronic hyponatremia on her sodium has been decreasing since admission, may be from diuresis. Patient also states that she does drink a lot of water. Nephrology consulted and recommended decreasing hypo-osmolar fluid restriction and started on normal saline with every 6 renal panel checks FULL CODE documented in this encounter Plan of Treatment Upcoming Encounters Date Type Department Care Team (Late st Contact Info) Description 08/23/2025 12:45 PM EST Office Visit [facility] Electrophysiology [address] [place] [phone] Vik Corcoran MD [address] [place] [address] [address] [place] [address] documented as of this encounter Visit Diagnoses Not on filedocumented in this encounter Care Teams Crown Pouncer Relationship Specialty Start Date End Date Alfred Cantu MD [address] [place] [address] PCP - General General Internal Medicine 08/29/22 Lyndsey Key MD [address] [place] [address] [address] [place] [address] Weighmaster Interventional Cardiology 08/29/22 Vik Corcoran MD [address] [place] [address] [address] [place] [address] Weighmaster Electrophysiology 05/19/24 documented as of this encounter
--- OUTSIDE RECORDS SUMMARY | 2025-02-18 10:40 | XMS_ITS | Encounter Summary ---
Author Organization [employer] ([place], [place], [place], [place]) Address [address] [place] [address] Care Team Providers Care Composition Teacher Name Role Phone Alfred Cantu MD Primary Care Provider [phone] Lyndsey Key MD Unavailable [phone] Vik Corcoran MD Unavailable Encounter Details Date Type Department Care Team (Late st Contact Info) Description 11/01/2018 Transcribed Document [facility] [place] [facility] [place] [address] ProviderRashard MD [address] [place] [address] Social History Tobacco Use Types Packs/Day Years Used Date Smoking Tobacco: Never Assessed Comments Unknown Sex and Gender Information Value Date Recorded Sex Assigned at Not on file Legal Sex Female 1:15 PM CDT Gender Identity Not on file Sexual Orientation Not on file documented as of this encounter Miscellaneous Notes * Cerner Conversion Note - Historical ProviderMD - 11/01/2018 5:00 AM CDT Chart Check - Review Order Profile Entered On: 11/01/2018 4:40 EDT Performed On: 11/01/2018 5:00 EDT by Ashu Ross, Rn Chart Check All Active Orders Reviewed : Yes Ashu Ross, Rn - 11/01/2018 4:40 EDT Electronically signed by Kavita [facility] Conversion [employer] Launch Commander Cerner at 11/28/2022 5:29 PM CDT documented in this encounter Plan of Treatment Upcoming Encounters Date Type Department Care Team (Late st Contact Info) Description 08/23/2025 12:45 PM EST Office Visit [facility] Electrophysiology [address] [place] [address] Vik Corcoran MD [address] [place] [address] [address] [place] [address] documented as of this encounter Visit Diagnoses Not on filedocumented in this encounter Care Teams Composition Teacher Relationship Specialty Start Date End Date Alfred Cantu MD [address] [place] [address] PCP - General General Internal Medicine 08/29/22 Lyndsey Key MD [address] [place] [address] [address] Stylist Assistant Interventional Cardiology 08/29/22 Vik Corcoran MD [address] [place] [address] [address] Stylist Assistant Electrophysiology 05/19/24 documented as of this encounter
--- OUTSIDE RECORDS SUMMARY | 2025-02-18 10:40 | XMS_ITS | Encounter Summary ---
Author Organization [employer] ([place], [place], [place], [place]) Address [address] [place] [address] Care Team Providers Care Retina Subspecialist Name Role Phone Alfred Castillo MD Primary Care Provider [phone] Lyndsey Key MD Unavailable [phone] Vik Corcoran MD Unavailable Encounter Details Date Type Department Care Team (Late st Contact Info) Description 11/02/[address] [facility] Family Medicine [facility] [place] [address] ProviderRashard MD [address] [place] [address] Social History Tobacco Use Types Packs/Day Years Used Date Smoking Tobacco: Never Assessed Comments Unknown Sex and Gender Information Value Date Recorded Sex Assigned at Not on file Legal Sex Female 1:15 PM CDT Gender Identity Not on file Sexual Orientation Not on file documented as of this encounter Miscellaneous Notes * Cerner Conversion Note - Rashard ProviderMD - 11/02/2018 1:53 PM CDT [address] , [place] [address] Patient Copy Patient Information: Name: KATHY JIMENEZ Current Date: 11/02/2018 13:53:47 : 1940 Patient Address: [address] [place] [address] [place] [address] Patient Attending Physician: CARMELLA MEI MD-INT Primary Care Provider: HARPREETY, NOT LISTED Primary Care Provider Phone: Discharge Diagnosis: Weight on Admission: 194 lb, 1 oz Weight at Discharge: 186 lb, 3 oz Comment: Follow-up Instructions: With: Address: When: ALFRED CASTILLO [address] [place], [place] [id number] Business (1) Within 1 week Comments: The office is closed today until 2:00 PM this Friday. Please call to make a 1 week follow-up appointment and discuss 3-[address] scan. Also discuss antibiotic therapy. With: Address: When: KASH BUTTS [address] [facility], [address] [place] [address] Business (1) 11:00 AM Comments: Bring Ins Card, Photo ID, Ins Co-pay Bring discharge instructions with you Call for follow up appointment Return with blood work With: Address: When: CLARE LIVINGSTON [address] [facility], [address] [place], [place] [id number] Business (1) Within As needed Comments: Please call to make a follow-up appointment IF you are unable to get in with Dr. Castillo within 1 week. With: Address: When: NAZANIN NAVA [address] [place] [address]., [address] [place] [address] Business (1) 9:00 AM Comments: You will [...] the dressing Medical Equipment for Home Use: [facility] for bedside commode and nebulizer [phone] Home Health Services: [facility] [phone] Immunizations Documented During Stay: No Immunizations Found [...] Discharge Instructions (if any): Final Medication List: [facility], [place] [address], [phone] amiodarone (amiodarone 200 mg oral tablet) 2 [...] Follow these instructions at home: Medicines??? Take ojns-azp-ldalkps and prescription medicines only as told by [...] and water are not available, use hand laundry clerk. ? Change your dressing as told by [...] radio towers. ??? Do notuse amateur ( Jemstep ) radio equipment or electric ( arc [...] 12/08/2007 Document Revised: 04/21/2017 Document Reviewed: 03/06/2015 [employer] Interactive Patient Education ? 2017 [employer]. Smoking Hazards Smoking cigarettes is extremely [...] contain harmful chemicals. FOR MORE INFORMATION ??? [place] Lung Association: www.lung.org ??? [place] Cancer Society: www.cancer.org This information is not intended to replace advice given to you by your health care provider. Make sure you discuss any questions you have with your health care provider. Document Released: 09/04/2005 Document Revised: 11/18/2016 Document Reviewed: 01/17/2014 [employer] Interactive Patient Education ? 2017 [employer]. Heart-Healthy Eating Plan Many factors influence your [...] foods can I eat? Grains Breads, including Malay, white, serenity, wheat, raisin, rye, oatmeal, and Indonesian. Tortillas that are neither fried nor made with lard or trans fat. Low-fat rolls, including hotdog and hamburger buns and Swazi muffins. Biscuits. Muffins. Waffles. Pancakes. Light popcorn. Whole-grain cereals. Flatbread. [place] toast. Pretzels. Breadsticks. Rusks. Low-fat snacks and [...] cheese. Whole milk cheeses, including blue (henry), Ringgold Gary, Brie, Hayes, Rwandan, Havarti, British, cheddar, Camembert, and Vernon. Whole or 2% milk that is liquid, [...] that has suet, meat fat, or shortening. [place] butter, hydrogenated oils, palm oil, coconut oil, [...] 05/06/2009 Document Revised: 02/14/2017 Document Reviewed: 01/19/2015 [employer] Interactive Patient Education ? 2017 [employer]. How to Take a Pulse Your [...] 02/01/2004 Document Revised: 02/14/2017 Document Reviewed: 12/31/2016 [employer] Interactive Patient Education ? 2017 [employer]. How to Take Your Blood Pressure [...] 07/10/2009 Document Revised: 08/18/2015 Document Reviewed: 09/22/2014 Elsevier Interactive Patient Education ? 2017 [employer]. Cardiomyopathy, Adult Cardiomyopathy is a long-term [...] Other treatments may include cardiac resynchronization therapy (CUT OFF SAWYER SHINGLE MILL) or a left ventricular assist device (LVAD). [...] to manage stress. General instructions ??? Take kbzo-apq-dlvdpjo and prescription medicines only as told by [...] 10/10/2005 Document Revised: 03/25/2017 Document Reviewed: 01/27/2017 [employer] Interactive Patient Education ? 2017 [employer]. Medication Leaflets: carvedilol (PRABHJOT ve dil ole) Germania, Germanai CAMEJO What is the most important information I [...] may report side effects to FDA at 7-433-YQJ-0524. What other drugs will affect carvedilol? Other drugs may interact with carvedilol, including prescription and fuji-eae-nnqrjvb medicines, vitamins, and herbal products. Tell each [...] to ensure that the information provided by [employer]. ('Multum') is accurate, up-to-date, and complete, but no guarantee is made to that effect. Drug information contained herein may be time sensitive. Hiperos information has been compiled for use by healthcare practitioners and consumers in the [place] and therefore Hi[employer]os does not warrant that uses outside of the [place] are appropriate, unless specifically indicated otherwise. Hi[employer]os's drug information does not endorse drugs, diagnose patients or recommend therapy. Quickflixs drug information is an informational resource designed [...] effective or appropriate for any given patient. Hi[employer] does not assume any responsibility for any aspect of healthcare administered with the aid of information Hiperos provides. The information contained herein is not intended to cover all possible uses, directions, precautions, warnings, drug interactions, allergic reactions, or adverse effects. If you have questions about the drugs you are taking, check with your doctor, nurse or pharmacist. Copyright 4519-2995 [employer]. Version: 15.01. Revision Date: 08/30/2013. albuterol and ipratropium (inhalation) (rosario mcneil ol and LIZA crum) Combivent Respimat, DuoNeb What is the most [...] may report side effects to FDA at 0-269-DMQ-1062. What other drugs will affect albuterol and ipratropium inhalation? Tell your doctor about all your current medicines and any you start or stop using, especially: ? a diuretic or 'water pill'; ?? heart or blood pressure medicine; ?? other beta-blockers; or ?? an antidepressant. This list is not complete. Other drugs may interact with albuterol and ipratropium, including prescription and tmmg-udm-ecnrwtf medicines, vitamins, and herbal products. Not all [...] to ensure that the information provided by [employer]. ('Multum') is accurate, up-to-date, and complete, but no guarantee is made to that effect. Drug information contained herein may be time sensitive. Hiperos information has been compiled for use by healthcare practitioners and consumers in the [place] and therefore Hi[employer]os does not warrant that uses outside of the [place] are appropriate, unless specifically indicated otherwise. Hi[employer]os's drug information does not endorse drugs, diagnose patients or recommend therapy. Quickflixs drug information is an informational resource designed [...] effective or appropriate for any given patient. Hi[employer] does not assume any responsibility for any aspect of healthcare administered with the aid of information Hiperos provides. The information contained herein is not intended to cover all possible uses, directions, precautions, warnings, drug interactions, allergic reactions, or adverse effects. If you have questions about the drugs you are taking, check with your doctor, nurse or pharmacist. Copyright 1623-7296 [employer]. Version: 7.01. Revision Date: 04/04/2017. guaifenesin (gwye [...] What happens if I miss a dose? documented in this encounter Plan of Treatment Upcoming Encounters Date Type Department Care Team (Late st Contact Info) Description 08/23/2025 12:45 PM EST Office Visit [facility] Electrophysiology [address] [place] [address] Vik Corcoran MD [address] [facility] [address] [place] [address] documented as of this encounter Visit Diagnoses Not on filedocumented in this encounter Care Teams Retina Subspecialist Relationship Specialty Start Date End Date Alfred Castillo MD [address] [place] [address] PCP - General General Internal Medicine 08/29/22 Lyndsey Key MD [address] [facility] [address] [address] Submarine Operator Interventional Cardiology 08/29/22 [place] [address] [place] [address] [address] Submarine Operator Electrophysiology 05/19/24 documented as of this encounter
--- OUTSIDE RECORDS SUMMARY | 2025-02-18 10:40 | XMS_ITS | Referral Summary ---
Author Organization [facility] ([place], [place], [place], [place]) Address [address] [place] [address] Care Team Providers Care Mounter Hand Name Role Phone Alfred Cantu MD Primary Care Provider [phone] Lyndsey Key MD Unavailable [phone] Gali Corcoran MD Unavailable Encounters Date Type Department Care Team Description 02/17/2025 1:00 PM EDT - 02/17/2025 11:59 PM EDT Hospital Encounter [facility] Non-Invasive Cardiology [address] [phone] Gali Corcoran MD Dilated cardiomyopathy (HCC) Discharge Disposition: Home or Self Care 02/17/2025 Travel 02/17/2025 10:45 AM EDT Office Visit [facility] Electrophysiology [address] [place] [address] Gali Corcoran MD Encounter for adjustment or management of cardiac device (Primary Dx); Dilated cardiomyopathy (HCC) 01/14/2025 6:00 AM EDT Clinical Support [facility] Electrophysiology [address] [place] [address] Baron Moreno MD Encounter for adjustment or management of cardiac device (Primary Dx); A-fib; parosyxmal; NICM (nonischemic cardiomyopathy); Chronic systolic congestive heart failure (HCC); AICD (automatic cardioverter/defibrill ator) present 01/10/2025 Telephone [facility] Cardiology [address] [place], [place] [phone] Gali Corcoran MD Advice Only 01/07/2025 Telephone [facility] Cardiology [address] [place] [address] Lyndsey Key MD clearance 12/13/2024 5:00 AM EDT Clinical Support [facility] Electrophysiology [address] [place] [address] Gali Corcoran MD Encounter for adjustment or management of cardiac device (Primary Dx); A-fib; parosyxmal; NICM (nonischemic cardiomyopathy); Chronic systolic congestive heart failure (HCC); AICD (automatic cardioverter/defibrill ator) present 11/26/2024 Telephone [facility] Electrophysiology [address] [place] [phone] Alejandro Lobo RN Advice Only from Last 3 Months Allergies Active Allergy Reactions Criticality Noted Date Comments Latex 08/27/2022 Sulfa (Sulfonamide Antibiotics) 08/11 Medications amiodarone (PACERONE) 200 MG tablet Take 1 tablet (200 mg total) by mouth daily Take .5 tablet daily . 07/24/2021 Active aspirin 81 MG EC tablet 1 Tab, Oral, Tab, Daily, # 30 Tab, 0 Refill(s), other reason (Rx) 10/02/2021 Active carvediloL (COREG) 12.5 MG tablet 1 Tab, Oral, Tab, BID, # 60 Tab, 0 Refill(s) 08/16/2021 Active fluticasone propion-salmeter oL (ADVAIR) 500-50 mcg/dose diskus inhaler Inhale 1 puff by mouth 2 (two) times daily. Active amLODIPine (NORVASC) 2.5 MG tablet Take 1 tablet (2.5 mg total) by mouth daily. Active CALCIUM-MAGNESIU M-ZINC ORAL Take by mouth. Active diazePAM (VALIUM) 5 MG tablet Take 1 tablet (5 mg total) by mouth every 6 (six) hours as needed. Active omeprazole (PriLOSEC OTC) 20 MG tablet Take 1 tablet (20 mg total) by mouth daily. Active potassium chloride (K-TAB) 20 mEq CR tablet Take 1 tablet (20 mEq total) by mouth daily. Active Active Problems Problem Noted Date Diagnosed Date Encounter for adjustment or management of cardia c device 08/20/2024 Chronic systolic congestive heart failure 2023 AICD (automatic cardioverter/defibrillator) pres ent 12/25/2023 Asthma 10/03/2022 GERD (gastroesophageal reflux disease) Nonrheumatic mitral (valve) insufficiency 2022 Obesity 10/03/2022 A-fib; parosyxmal Overview (08/27/2022): Watchman device in-situ HTN (hypertension) SAKSHI (obstructive sleep apnea) LBBB (left bundle branch block) NICM (nonischemic cardiomyopathy) Overview (10/03/2022): BIV-ICD in-situ 07/21/2020 Echo EF 50% Grade II systolic dysfunction HLD (hyperlipidemia) Resolved Problems Problem Noted Date Diagnosed Date Resolved Date Recurrent falls 10/03/2022 Social History Tobacco Use Types Packs/Day Years [...] Date Ezra rded Speak language other than Barbadian at home Not on file 08/29/2023 Want [...] on file Sexual Orientation Not on file Last Filed Vital Signs Vital Sign Reading Time Taken Comments Blood Pressure 130/80 02/17/2025 11:34 AM EDT Pulse 82 02/17/2025 11:34 AM EDT Temperature - - Respiratory Rate 17 06/24/2024 3:00 PM EST Oxygen Saturation 96% 02/17/2025 11:34 AM EDT Inhaled Oxygen Concentration - - Weight 78.3 kg (172 lb 9.6 oz) 02/17/2025 11:34 AM EDT Height 152.4 cm (5') 02/17/2025 11:34 AM EDT Body Mass Index 33.71 02/17/2025 11:34 AM EDT Plan of Treatment Upcoming Encounters Date Type Department Care Team (Late st Contact Info) Description 08/23/2025 12:45 PM EST Office Visit [facility] Electrophysiology [address] [place] [address] Gali Corcoran MD [address] [place] [address] [address] [place] [address] Medical Devices Implanted Type Area Quality Process Lead Device Identifier Shelf Expiration Date Model / Serial / Lot Icd-10/23/2018 Implanted:2018 by Esteban Castillo MD (Quantity not on file) ICD [employer] CLARIA QUAD / [id number] / Procedures Procedure Name Priority Date/Time Associated Diagnosis Comments ECHO COMPLETE (DOPPLER / COLOR) WO CONTRAST Routine 02/17/2025 2:20 PM EDT Dilated cardiomyopathy (HCC) [id number] 12-LEAD Routine 02/17/2025 11:34 AM EDT Encounter for adjustment or management of cardiac device from Last 3 Months Results * ECHO COMPLETE (DOPPLER / COLOR) WO CONTRAST (02/17/2025 2:20 PM EDT) Anatomical Region Laterality Modality Heart Vascular Ultraso und 02/17/2025 1:55 PM EDT Narrative 02/17/2025 5:56 PM EDT TRANSTHORACIC ECHOCARDIOGRAPHY REPORT Demographics Patient Name: BARBARA Plasencia : 1940 Age: 84 year(s) Corporate ID Number: [id number] Gender Female Life Skills Instructor: Julita Bravo Height: 62 inches RDCS Referring Physician: GALI CORCORAN MD Weight: 172 [...] 0.81 m/s E/A ratio: 1.24 m/s Volume [id number] LV length: 7.14 cm ml Volume utdaldzg14.22 ml LVOT diameter: 1.68 cm Normal sized [...] Valve TR velocity: 3.06 m/s TR gradient: 37.57261 mmHg Estimated RAP: 3 mmHg RVSP: 40.5 [...] 02/17/2025 TRANSTHORACIC ECHOCARDIOGRAPHY REPORT Demographics Patient Name: BARBARA Plasencia : 1940 Age: 84 year(s) Corporate ID Number: [id number] Gender Female Life Skills Instructor: Julita Bravo Height: 62 inches [facility] Referring Physician: GALI CORCORAN MD [...] 0.81 m/s E/A ratio: 1.24 m/s Volume uqyuqaova675.39 LV length: 7.14 cm ml Volume wwzzurmk31.22 ml LVOT diameter: 1.68 cm Normal sized [...] Valve TR velocity: 3.06 m/s TR gradient: 37.97462 mmHg Estimated RAP: 3 mmHg RVSP: 40.5 [...] Gali Corcoran MD ECG ORDERABLES Final Result from Last 3 Months Insurance MEDICARE [place] [address] [address] [address] SUPP [facility] SUPP Care Teams Mounter Hand Relationship Specialty Start Date End Date Alfred Cantu MD [address] [place] [address] PCP - General General Internal Medicine 08/29/22 Lyndsey Key MD [address] [facility] [address] [place] [address] Theatrical Performer Interventional Cardiology 08/29/22 Gali Corcoran MD [address] [facility] [address] [place], [place] [id number] Theatrical Performer Electrophysiology 05/19/24
--- OUTSIDE RECORDS SUMMARY | 2025-02-18 10:40 | XMS_ITS | Encounter Summary ---
Author Organization [employer] ([place], [place], [place], [place]) Address [address] [place] [address] Care Team Providers Care Certified Shorthand Reporter Name Role Phone Alfred Cantu MD Primary Care Provider [phone] Lyndsey Key MD Unavailable [phone] Vik Corcoran MD Unavailable Reason for Visit * Reason Onset Date Comments clearance 01/07/2025 Encounter Details Date Type Department Care Team (Late st Contact Info) Description 01/07/2025 Telephone [facility] Cardiology [address] [place] [address] Lyndsey Key MD [address] [facility] [address] [place] [id number] clearance Social History Tobacco Use Types Packs/Day Years [...] Date Ezra rded Speak language other than Panamanian at home Not on file 08/29/2023 Want [...] encounter Miscellaneous Notes * Telephone Encounter - Doretha Aguirre CMA - 02/18/2025 9:13 AM EDT He put in his note she was acceptable risk for the spinal cord stimulator. The echo said 55% on herEF so she is good with that too. You can send his note and the echo report to them. * Telephone Encounter - Ann Steward - 02/18/2025 8:31 AM EDT [facility] calling to check status of clearance form it needs to be faxed back to [phone] or any questions please call [phone] * Telephone Encounter - Alejandro Lobo RN - 02/15/2025 8:21 AM EDT The letter will not be signed until patient has been seen on the . Nothing can be sent to [facility] until that time. * Telephone Encounter - Crystal Larson - 02/14/2025 1:44 PM EDT [facility] asking for the clearance. Note. Pt rescheduled for 02/17/25 * Telephone Encounter - Alejandro Lobo RN - 01/07/2025 9:40 AM EDT Patient scheduled for a visit and cardiac clearance letter printed and is being held at my desk until time of appointment. * Telephone Encounter - Crystal Larson - 01/07/2025 9:02 AM EDT [facility] (Julisa Abbott PA-C) requesting a clearance and hold on aspirin for 6 days prior to SCS trial and remain off the medication throughout trial for a total of 9 days. They are aware patient has a watchman/pacemaker and this will require the presence of the reps in the OR. documented in this encounter Plan of Treatment Upcoming Encounters Date Type Department Care Team (Late st Contact Info) Description 08/23/2025 12:45 PM EST Office Visit [facility] Electrophysiology [address] [place] [address] Vik Corcoran MD [address] [place] [address] [address] [place] [address] documented as of this encounter Visit Diagnoses Not on filedocumented in this encounter Care Teams Certified Shorthand Reporter Relationship Specialty Start Date End Date Alfred Cantu MD [address] [place] [address] PCP - General General Internal Medicine 08/29/22 [place] [address] [place] [address] [address] [place] [address] Bookkeeping Machine Operator Interventional Cardiology 08/29/22 [place] [address] [place] [address] [address] [place] [address] Bookkeeping Machine Operator Electrophysiology 05/19/24 documented as of this encounter
--- OUTSIDE RECORDS SUMMARY | 2025-02-18 10:41 | XMS_ITS | Encounter Summary ---
Author Organization [employer] ([place], [place], [place], [place]) Address [address] [place] [address] Care Team Providers Care Lumber Handler Name Role Phone Alfred Cantu MD Primary Care Provider [phone] Lyndsey Key MD Unavailable [phone] Vik Corcoran MD Unavailable Encounter Details Date Type Department Care Team (Late st Contact Info) Description 10/31/2018 Transcribed Document [facility] Family Medicine [address] [place] [address] ProviderRashard MD [address] [place] [address] Social History Tobacco Use Types Packs/Day Years Used Date Smoking Tobacco: Never Assessed Comments Unknown Sex and Gender Information Value Date Recorded Sex Assigned at Not on file Legal Sex Female 1:15 PM CDT Gender Identity Not on file Sexual Orientation Not on file documented as of this encounter Miscellaneous Notes * Cerner Conversion Note - Rashard ProviderMD - 10/31/2018 11:52 AM CDT Consult Phone Call Documentation Entered On: 10/31/2018 18:24 EDT Performed On: 10/31/2018 11:52 EDT by Jihan Buenrostro, Chelly Phone Call for Consults Additional Information : called by Anabel senior Sarah L, Rn - 10/31/2018 18:24 EDT documented in this encounter Plan of Treatment Upcoming Encounters Date Type Department Care Team (Late st Contact Info) Description 08/23/2025 12:45 PM EST Office Visit [facility] Electrophysiology [address] [place] [address] [place] [address] [place] [address] [address] documented as of this encounter Visit Diagnoses Not on filedocumented in this encounter Care Teams Lumber Handler Relationship Specialty Start Date End Date Alfred Cantu MD [address] [place] [address] PCP - General General Internal Medicine 08/29/22 [place] [address] [place] [address] [address] Legal Support Manager Interventional Cardiology 08/29/22 Vik Corcoran MD [address] [place] [address] [address] Legal Support Manager Electrophysiology 05/19/24 documented as of this encounter
--- OUTSIDE RECORDS SUMMARY | 2025-02-18 10:41 | XMS_ITS | Encounter Summary ---
Author Organization [employer] ([place], [place], [place], [place]) Address [address] [place] [address] Care Team Providers Care Grader Tender Name Role Phone Alfred Cantu MD Primary Care Provider [phone] Lyndsey Key MD Unavailable [phone] Vik Corcoran MD Unavailable Encounter Details Date Type Department Care Team (Late st Contact Info) Description 10/28/2018 Transcribed Document [facility] [place] [address] ProviderRashard MD [address] [place] [address] Social History Tobacco Use Types Packs/Day Years Used Date Smoking Tobacco: Never Assessed Comments Unknown Sex and Gender Information Value Date Recorded Sex Assigned at Not on file Legal Sex Female 1:15 PM CDT Gender Identity Not on file Sexual Orientation Not on file documented as of this encounter Miscellaneous Notes * Cerner Conversion Note - Rashard ProviderMD - 10/28/2018 5:00 PM CDT Chart Check - Review Order Profile Entered On: 10/28/2018 15:17 EDT Performed On: 10/28/2018 17:00 EDT by Roberta Ernandez, Rn Chart Check Powerplans Initiated/Discontinued as Appropriate : Yes All Active Orders Reviewed : Yes Roberta Ernandez Rn - 10/28/2018 15:17 EDT Electronically signed by Kavita [facility] Conversion Surveyor Oil Well Directional Krzysztof at 11/28/2022 5:44 PM CDT documented in this encounter Plan of Treatment Upcoming Encounters Date Type Department Care Team (Late st Contact Info) Description 08/23/2025 12:45 PM EST Office Visit [facility] Electrophysiology [address] [place] [address] [place] [address] [place] [address] [address] [place] [address] documented as of this encounter Visit Diagnoses Not on filedocumented in this encounter Care Teams Grader Tender Relationship Specialty Start Date End Date Alfred Cantu MD [address] [place] [address] PCP - General General Internal Medicine 08/29/22 Lyndsey Key MD [address] [facility] [address] [address] Master Motorcycle Technician Interventional Cardiology 08/29/22 [place] [address] [place] [address] [address] Master Motorcycle Technician Electrophysiology 05/19/24 documented as of this encounter
--- OUTSIDE RECORDS SUMMARY | 2025-02-18 10:41 | XMS_ITS | Encounter Summary ---
Author Organization [employer] ([place], [place], [place], [place]) Address [address] [place] [address] Care Team Providers Care Software Design Engineer Name Role Phone Alfred Cantu MD Primary Care Provider [phone] Lyndsey Key MD Unavailable [phone] Vik Corcoran MD Unavailable Encounter Details Date Type Department Care Team (Late st Contact Info) Description 05/07/2024 Outside Orders [facility] Central Scheduling [address] [place] [address] Julisa Abbott PA [address] [place] [address] Spinal stenosis, lumbar region with neurogenic claudication (Primary Dx) Social History Tobacco Use Types Packs/Day Years [...] Date Ezra rded Speak language other than Tajik at home Not on file 08/29/2023 Want [...] Description 08/23/2025 12:45 PM EST Office Visit [facility] Electrophysiology [address] [place] [phone] Vik Corcoran MD [address] [place] [address] [address] [place], [place] [phone] documented as of this encounter Visit Diagnoses Diagnosis Spinal stenosis, lumbar region with neurogenic claudication- Primary documented in this encounter Care Teams Software Design Engineer Relationship Specialty Start Date End Date Alfred Cantu MD [address] [place] [address] PCP - General General Internal Medicine 08/29/22 Lyndsey Key MD [address] [place] [address] [address] Automatic Log Cut Off Sawyer Interventional Cardiology 08/29/22 Vik Corcoran MD [address] [place] [address] [address] Automatic Log Cut Off Sawyer Electrophysiology 05/19/24 documented as of this encounter
--- OUTSIDE RECORDS SUMMARY | 2025-02-18 10:41 | XMS_ITS | Encounter Summary ---
Author Organization [employer] ([place], [place], [place], [place]) Address [address] [place] [address] Care Team Providers Care Roll Setter Name Role Phone Alfred Cantu MD Primary Care Provider [phone] Lyndsey Key MD Unavailable [phone] Vik Corcoran MD Unavailable Encounter Details Date Type Department Care Team (Late st Contact Info) Description 10/31/2018 Transcribed Document [facility] [place] [facility] [place] [address] ProviderRashard MD [address] [place] [address] Social History Tobacco Use Types Packs/Day Years Used Date Smoking Tobacco: Never Assessed Comments Unknown Sex and Gender Information Value Date Recorded Sex Assigned at Not on file Legal Sex Female 1:15 PM CDT Gender Identity Not on file Sexual Orientation Not on file documented as of this encounter Miscellaneous Notes * Cerner Conversion Note - Rashard Gonzalez MD - 10/31/2018 5:39 PM CDT Patient: KATHY CARTER Age: 78 Years Sex: Female : 1940 Chief Complaint Weakness being tired shortness of breath Reason for Consultation Hyponatremia History of Present Illness Ms. Carter, T8 years old female with past medical history of hypertension, mitral valve regurg, asthma, who was transferred from [facility] because of CHFexacerbation and severe mitral regurg for possible ICD placement. She had been admitted to [facility] for 3 days treated for pneumonia. She was complaining of cough with clear sputum and shortness of breath and x-ray showed pneumonia. She states that over the past 4 months she has had several different treatments for community-acquired bronchitis/asthma exacernbation with steroids and azithromycin. Apparently she was admitted on 20 October 2018 for the above symptoms. During the workup she was found to have cardiomyopathy with ejection fraction about 25%. She also had low sodium about 127-128. I looked at the last year or 2 she never had a serum sodium of 129. Today her sodium dropped to 122 for vitreal consulted Review of Systems Constitutional: Decrease activity weakness and fatigue Eye: No icterus. Ear/Nose/Mouth/Throat: Decreased hearing: Bilaterally. Respiratory: Shortness of breath, Cough. Improving Cardiovascular: Peripheral edema. Gastrointestinal: No nausea, No vomiting, No diarrhea. Genitourinary: Dysuria. Hematology/Lymphatics: No swollen lymph glands. Endocrine: No excessive hunger. Immunologic: Malaise. Musculoskeletal: Joint pain. Integumentary: No rash. Neurologic: Alert and oriented X4. Psychiatric: Appropriate but slow Vital Signs Vitals Signs (last 24 hrs) Last Charted Minimum Maximum Temp 97.5 (OCT 31 13:58) 97.5 (OCT 31 13:58) 97.3 (OCT 30:47) Apical HR 89 (OCT 31 15:36) 89 (OCT 31 15:36) 89 (OCT 31 15:36) Mon HR 82 (OCT 31 16:09) 57 (OCT 31 05:49) 95 (OCT 30 17:47) Resp Rate 18 (OCT 31 16:09) 16 (OCT 30 17:47) 18 (OCT 31 10:47) SBP 134 (OCT 31 13:58) L 82 (OCT 31 05:47) 134 (OCT 31 13:58) DBP 78 (OCT 31 13:58) L 51 (OCT 31 05:47) 90 (OCT 31 05:49) MAP 89 (OCT 31 13:58) 64 (OCT 31 05:45) 101 (OCT 31 05:47) SpO2 95 (OCT 31 09:00) 95 (OCT 31 09:00) 96 (OCT 30 21:49) Oxygen Settings (Last) Oxygen Therapy Mode: Nasal cannula (10/31/18 16:09:00 EDT) Oxygen Flow Rate: 2 Liter/Min (10/31/18 16:09:00 EDT) Physical Exam General: Alert and oriented, Mild distress. Eye: Pupils are equal, round and reactive to light, Normal conjunctiva. HENT: Normocephalic, Oral mucosa is moist. Neck: Supple, Non-tender. Respiratory: Lungs are clear to auscultation, Respirations are non-labored. Cardiovascular: Normal rate, Regular rhythm, No murmur. Gastrointestinal: Soft, Non-tender, large, distended?. Genitourinary: Exam deferred. Lymphatics: No lymphadenopathy neck, axilla, groin. Musculoskeletal: Normal range of motion, Normal strength. Integumentary: Warm, Dry. Neurologic: Alert, Oriented. No tremors Cognition and Speech: Oriented, Speech clear and coherent. Psychiatric: Cooperative, Appropriate mood & affect Assessment/Plan Hyponatremia???clinically seems that hyponatremia is related to drinking a lot of water not eating much. She does admit of drinking a lot of water and low-sodium fluids. In the hospital she has not been eating that much but she has been drinking a lot of water she mentioned. She has dropped her sodium down to 122 interestingly she never had a serum sodium in the system above 129. She also has a finding on CT scan with lung nodule and not sure what kind of workup has been done on but there is always a suspicion of SIADH. So at this time my differential would be hypovolemic hyponatremia versus SIDH Acute kidney injury creatinine has jumped to 1.2 possibly because of diuresis Cardiomyopathy due to drug and external agent, Cardiomyopathy due to drug and external agent Plan At this time I would like to restrict her hypo-osmolar fluid intake to about 1200 mL a day I will order hyponatremia workup- She is not having much symptoms there is no need for giving hypotonic saline versus Samsca. Continue to monitor Thank you for involving us in the care of this patient Orders: Calcium Level Creatinine Urine Random Ferritin Level Iron Level Osmolality Serum Osmolality Urine Sodium Level Sodium Level Urine Random TIBC Transferrin, Sendout Uric Acid VTE Prophylaxis - Medical Apixaban 5 mg, Oral, Tab, [id number], Routine, Start 10/30/18 16:00:00 EDT (NAZANIN ORTIZ) Provider Information Primary Care Physician - PHY, NOT LISTED Attending Physician - CARMELLA MEI MD-INT Admitting Physician - CARMELLA MEI MD-INT Consulting Physician - NAZANIN ORTIZ MD Consulting Physician - PAVEL CHINCHILLA MD Consulting Physician - KM CA MD Consulting Physician - Carl Gomez MD Consulting Physician - ESPERANZA GOMEZ MD-INF (leukocytosis , recetn AICD placment ,PNA?) Consulting Physician - CLARE LIVINGSTON MD-INF Consulting Physician - LEXIE PHILLIPS MD Problem List/Past Medical History Ongoing Allergic asthma Apnea, sleep Chronic GERD Dyspnea H/O hyperlipidemia H/O mitral valve insufficiency History of obstructive sleep apnea Hx of obesity Hypertension Historical No qualifying data Procedure/Surgical History cataract surgery - bilateral, CHOLECYSTECTOMY, colonoscopty, hysterectomy, sinus surgery, upper gi. Medications Inpatient acetaminophen, 325 mg= 1 Tab, [...] RT_Q6H Eliquis, 5 mg= 1 Tab, Oral, [id number] magnesium sulfate, 2 Gram= 50 mL, IV Piggyback, Q2H, PRN magnesium sulfate, 2 Gram= 50 mL, IV Piggyback, Daily, PRN Mucinex, 1200 mg= 2 Tab, Oral, BID nystatin, [id number] Units= 10 mL, Swish and Swallow , [...] oral tablet, 500 mg= 1 Tab, Oral, [id number] Mucinex 600 mg oral tablet, extended release, 1200 mg= 2 Tab, Oral, BID omeprazole 20 mg oral delayed release capsule, 40 mg= 2 Cap, Oral, Daily ProAir HFA 90 mcg/inh inhalation aerosol, 2 Puff, Inhalation, QID, PRN Singulair 10 mg oral tablet, 10 mg= 1 Tab, Oral, Daily Allergies Latex statins sulfa drugs Social History Alcohol Alcohol Use History No. Substance Abuse Drug Use Hx: No. Use in Last 12 Months: No. Tobacco Smoking Status Never smoker. Lab Results Test Name Test Result Date/Time Sodium Level 122 mmol/L (Low) 10/31/2018 05:34 EDT Potassium Level 4.0 mmol/L 10/31/2018 05:34 EDT Chloride Level 86 mmol/L (Low) 10/31/2018 05:34 EDT Carbon Dioxide Level 28 mmol/L 10/31/2018 05:34 EDT Anion Gap 12 10/31/2018 05:34 EDT Glucose Level 119 mg/dL (High) 10/31/2018 05:34 EDT Blood Urea Nitrogen 39 mg/dL (High) 10/31/2018 05:34 EDT Creatinine Level 1.20 mg/dL (High) 10/31/2018 05:34 EDT eGFR 53 mL/min/1.73m2 (Low) 10/31/2018 05:34 EDT eGFR NonAfrican 44 mL/min/1.73m2 (Low) 10/31/2018 05:34 EDT Bun/Creatinine 30.0 (High) 10/31/2018 05:34 EDT Calcium Level 8.3 mg/dL (Low) 10/31/2018 05:34 EDT Protein Total 5.5 Gram/dL (Low) 10/31/2018 05:34 EDT Albumin Level 2.8 Gram/dL (Low) 10/31/2018 05:34 EDT Globulin 2.7 Gram/dL 10/31/2018 05:34 EDT A/G Ratio 1.0 (Low) 10/31/2018 05:34 EDT Bilirubin Total 0.6 mg/dL 10/31/2018 05:34 EDT Alk Phos 63 Units/Liter 10/31/2018 05:34 EDT AST 21 Units/Liter 10/31/2018 05:34 EDT ALT 21 Units/Liter 10/31/2018 05:34 EDT WBC 35.1 K/uL (Critical) 10/31/2018 05:34 EDT RBC 4.14 Million/uL 10/31/2018 05:34 EDT Hgb 10.5 g/dL (Low) 10/31/2018 05:34 EDT Hct 32.0 % (Low) 10/31/2018 05:34 EDT MCV 77.3 fL (Low) 10/31/2018 05:34 EDT MCH 25.4 pg (Low) 10/31/2018 05:34 EDT MCHC 32.8 Gram/dL 10/31/2018 05:34 EDT Platelet Count 138 K/uL (Low) 10/31/2018 05:34 EDT MPV 11.9 fL 10/31/2018 05:34 EDT RDW 15.3 % (High) 10/31/2018 05:34 EDT Neut % 66.3 % 10/31/2018 05:34 EDT Neut # 23.25 K/uL (High) 10/31/2018 05:34 EDT Lymph % 18.6 % (Low) 10/31/2018 05:34 EDT Lymph # 6.53 x10(3)/uL (High) 10/31/2018 05:34 EDT [place] % 8.3 % 10/31/2018 05:34 EDT [place] # 2.91 K/uL (High) 10/31/2018 05:34 EDT Eos % 2.5 % 10/31/2018 05:34 EDT Eos # 0.89 x10(3)/uL (High) 10/31/2018 05:34 EDT Baso % 0.1 % 10/31/2018 05:34 EDT Baso # 0.05 x10(3)/uL 10/31/2018 05:34 EDT Slide Review No 10/31/2018 05:34 EDT IG# 1.49 x10(3)/uL (High) 10/31/2018 05:34 EDT IG% 4.20 % (High) 10/31/2018 05:34 EDT TSH 0.491 mcInt Units/mL 10/31/2018 05:34 EDT Diagnostic Results No Radiology Results Found Electronically signed by [facility] Conversion Supervisor Metal Placing Cerner at 11/28/2022 5:44 PM CDT documented in this encounter Plan of Treatment Upcoming Encounters Date Type Department Care Team (Late st Contact Info) Description 08/23/2025 12:45 PM EST Office Visit [facility] Electrophysiology [address] [place] [address] [place] [address] [place] [address] [address] [place] [address] documented as of this encounter Visit Diagnoses Not on filedocumented in this encounter Care Teams Roll Setter Relationship Specialty Start Date End Date Alfred Cantu MD [address] [place] [address] PCP - General General Internal Medicine 08/29/22 [place] [address] [place] [address] [address] [place] [address] Cloth Neutralizer Interventional Cardiology 08/29/22 Vik Corcoran MD [address]01 [facility] [place] [address] Cloth Neutralizer Electrophysiology 05/19/24 documented as of this encounter
--- OUTSIDE RECORDS SUMMARY | 2025-02-18 10:41 | XMS_ITS | Encounter Summary ---
Author Organization [employer] ([place], [place], [place], [place]) Address [address] [place] [address] Care Team Providers Care On Air Host Name Role Phone Alfred Cantu MD Primary Care Provider [phone] Lyndsey Key MD Unavailable [phone] Vik Corcoran MD Unavailable Encounter Details Date Type Department Care Team (Late st Contact Info) Description 10/31/2018 Transcribed Document [facility] [place] [address] ProviderRashard MD [address] [place] [address] Social History Tobacco Use Types Packs/Day Years Used Date Smoking Tobacco: Never Assessed Comments Unknown Sex and Gender Information Value Date Recorded Sex Assigned at Not on file Legal Sex Female 1:15 PM CDT Gender Identity Not on file Sexual Orientation Not on file documented as of this encounter Miscellaneous Notes * Cerner Conversion Note - Rashard ProviderMD - 10/31/2018 3:49 AM CDT Rapid Response Team Documentation Entered On: 10/31/2018 3:51 EDT Performed On: 10/31/2018 3:49 EDT by BARB COOPER RN Rapid Response Event Time Rapid Response Team Called : 10/31/2018 3:49 EDT Rapid Response Team Arrival Time : 10/31/2018 3:49 EDT Rapid Response Team Event End Time : 10/31/2018 3:51 EDT Rapid Response Event Intiated By : Other: sepsis dashboard Rapid Response Team Initiation Reason : Positive SIRS screen Rapid Response Event Location Type : Other: 316 Rapid Response Team Initiation Reason Details : alert triggered at 1550. nurse charted she alerted had critial wbc. 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 Shortness of breath Rapid Response Medical Background : Allergic asthma (Patient Stated) Apnea, sleep (Patient Stated) Chronic GERD (Patient Stated) Dyspnea (Patient Stated) H/O hyperlipidemia (Patient Stated) H/O mitral valve insufficiency (Patient Stated) History of obstructive sleep apnea (Medical) Hx of obesity (Patient Stated) Hypertension (Patient Stated) Rapid Response Allergies : Substance Category Reactions Severity Latex Drug statins Drug sulfa drugs Drug Rapid Response Recent Vital Signs : 10/31/2018 01:34 Systolic Blood Pressure 108 10/31/2018 01:34 Diastolic Blood Pressure 86 10/31/2018 01:34 Heart Rate Monitored 88 10/30/2018 17:47 Respiratory Rate 16 10/31/2018 01:34 Temperature, Fahrenheit 97.6 10/30/2018 21:49 Oxygen Saturation 96 Rapid Response Recent Lab Results : 10/30/2018 04:59 Sodium Level LOW 126 (136-146) 10/30/2018 04:59 Potassium Level 4.6 (3.5-5.1) 10/21/2018 05:27 Calcium Ionized LOW 1.04 (1.12-1.32) 10/30/2018 04:59 Calcium Level 9.0 (8.4-10.1) 10/30/2018 14:23 Magnesium Level 1.8 (1.5-2.4) 10/30/2018 13:27 Glucose POC2 HI 212 (70-110) 10/30/2018 04:59 Chloride Level LOW 88 (102-112) 10/30/2018 04:59 Carbon Dioxide Level 30 (21-32) 10/30/2018 04:59 Blood Urea Nitrogen HI 44 (7-22) 10/30/2018 04:59 Creatinine Level HI 1.20 (0.55-1.02) 10/30/2018 04:59 Hgb 11.7 (11.2-15.7) 10/30/2018 04:59 Hct 35.3 (34.1-44.9) 10/30/2018 04:59 RBC 4.57 (3.93-5.22) 10/30/2018 04:59 WBC CRIT 39.8 (4.5-10.5) 10/30/2018 04:59 Platelet Count 169 (163-369) 10/21/2018 05:27 Lactic Acid Level 0.8 (0.4-2.0) 10/21/2018 05:27 Troponin I Ultra HI 0.079 (0.015-0.045) 10/21/2018 07:48 pH Art HI 7.47 (7.35-7.45) 10/21/2018 07:48 pCO2 Art 44.5 (35.0-45.0) 10/21/2018 07:48 pO2 Art HI 121.0 (80.0-100.0) 10/21/2018 07:48 HCO3 Art HI 32.1 (20.0-26.0) 10/21/2018 07:48 BE Art HI 7.8 (-2.0-2.0) 10/21/2018 07:48 sO2 Art 97.9 (95.0-100.0) Weight/BMI : Clinical Weight/BMI CLINICALWEIGHT: 88.2 kg (10/20/18 23:50:00) CLINICALWEIGHT: 88.2 kg (10/20/18 23:04:00) Body Mass Index: 38 kg/m2 High (10/20/18 23:50:00) Body Mass Index: 38 kg/m2 High (10/20/18 23:04:00) Rapid Response On Air Host #1 : BARB COOPER V, RN BARB COOPER V RN - 10/31/2018 3:49 EDT Electronically signed by [facility] Conversion Brazing Machine Setter Cerner at 11/28/2022 5:38 PM CDT documented in this encounter Plan of Treatment Upcoming Encounters Date Type Department Care Team (Late st Contact Info) Description 08/23/2025 12:45 PM EST Office Visit [facility] Electrophysiology [address] [place] [address] Vik Corcoran MD [address] [place] [address] [address] [place] [address] documented as of this encounter Visit Diagnoses Not on filedocumented in this encounter Care Teams On Air Host Relationship Specialty Start Date End Date Alfred Cantu MD [address] [place] [phone] PCP - General General Internal Medicine 08/29/22 Lyndsey Key MD 1401 [facility] [address] [place], [place] [id number] Caramel Candy Maker Helper Interventional Cardiology 08/29/22 Vik Corcoran MD 1401 [facility] [address] [place] [address] Caramel Candy Maker Helper Electrophysiology 05/19/24 documented as of this encounter
--- OUTSIDE RECORDS SUMMARY | 2025-02-18 10:41 | XMS_ITS | Encounter Summary ---
Author Organization [employer] ([place], [place], [place], [place]) Address [address] [place] [address] Care Team Providers Care Dental Scheduler Name Role Phone Alfred Cantu MD Primary Care Provider Lyndsey Key MD Unavailable [phone] Vik Corcoran MD Unavailable Encounter Details Date Type Department Care Team (Late st Contact Info) Description 10/31/2018 Transcribed Document [facility] [place] [facility] [address] ProviderRashard MD [address] [place] [address] Social History Tobacco Use Types Packs/Day Years Used Date Smoking Tobacco: Never Assessed Comments Unknown Sex and Gender Information Value Date Recorded Sex Assigned at Not on file Legal Sex Female 1:15 PM CDT Gender Identity Not on file Sexual Orientation Not on file documented as of this encounter Miscellaneous Notes * Cerner Conversion Note - Rashard ProviderMD - 10/31/2018 5:00 PM CDT Chart Check - Review Order Profile Entered On: 10/31/2018 18:36 EDT Performed On: 10/31/2018 17:00 EDT by Jihan Buenrostro Rn Chart Check Chart Reviewed Date and Time : 10/31/2018 18:36 EDT Powerplans Initiated/Discontinued as Appropriate : Yes All Active Orders Reviewed : Yes Jihan Buenrostro Rn - 10/31/2018 18:36 EDT Electronically signed by Kavita [facility] Conversion Teacher Of The Hearing Impaired Cerner at 11/28/2022 5:38 PM CDT documented in this encounter Plan of Treatment Upcoming Encounters Date Type Department Care Team (Late st Contact Info) Description 08/23/2025 12:45 PM EST Office Visit [facility] Electrophysiology [address] [place] [phone] [place] [address] [place] [address] [address] [place], [place] [id number] documented as of this encounter Visit Diagnoses Not on filedocumented in this encounter Care Teams Dental Scheduler Relationship Specialty Start Date End Date Alfred Cantu MD [address] [place] [address] PCP - General General Internal Medicine 08/29/22 [place] [address] [place] [address] [address] [place] [address] Foreign Service Officer Interventional Cardiology 08/29/22 [place] [address] [place] [address] [address] [place], [place] [id number] Foreign Service Officer Electrophysiology 05/19/24 documented as of this encounter
--- OUTSIDE RECORDS SUMMARY | 2025-02-18 10:41 | XMS_ITS | Encounter Summary ---
Author Organization [employer] ([place], [place], [place], [place]) Address [address] [place] [address] Care Team Providers Care Restaurant District Manager Name Role Phone Alfred Cantu MD Primary Care Provider [phone] Lyndsey Key MD Unavailable [phone] Vik Corcoran MD Unavailable Encounter Details Date Type Department Care Team (Late st Contact Info) Description 10/20/2018 Transcribed Document [facility] [place] Family Medicine [address] [place] [address] ProviderRashard MD [address] [place] [address] Social History Tobacco Use Types Packs/Day Years Used Date Smoking Tobacco: Never Assessed Comments Unknown Sex and Gender Information Value Date Recorded Sex Assigned at Not on file Legal Sex Female 1:15 PM CDT Gender Identity Not on file Sexual Orientation Not on file documented as of this encounter Miscellaneous Notes * Cerner Conversion Note - Rashard Gonzalez MD - 10/20/2018 11:59 PM CDT Care Management Assessment/Plan Entered On: 10/21/2018 13:09 EDT Performed On: 10/21/2018 13:02 EDT by CONNIE LIVE, RN Care Management Note Anticipated Discharge Date : 10/23/2018 15:00 EDT Care Management Note : readmit risk: moderate 59. transfer from [facility]. acute excerbation systolic heart failure. ef 25-30%. severe mitral regurg. severe nicm. CAP. for biv icd today. bipap 50%/02 4-6L nc. zithromax po. zosyn iv. ca gluconate iv x 2. kcl 20meq x 1. na phos iv x 1. PT consult. spoke with Ms. Jimenez. explained role of case management. pt resides in [facility]. she is adl independent. drives car. has cane, walker & cpap provided by [facility]. no current home health or previous rehab stays. discussed dc planning rehab vs home health depending on progress. pt has medicare primary. she advises she has [employer] 2nd insurance. notified Aubrie, pt advocate for inclusion in records. spoke with bedside RNMagda. Documentation Status Complete : Yes CONNIE LIVE RN - 10/21/2018 13:02 EDT Patient History Information Obtained from, Care Mgt : Patient, Medical Record Current Primary Care Physician : Dr Alfred Cantu Emergency Contact #1 : Braxton Jimenez Emergency Contact #1 Emergency Contact #1 Relationship : Emergency Contact #2 : [place] Emergency Contact #2 Emergency Contact #2 Relationship : Son Living Situation : Home Patient Lives With : Spouse Mobility Assistance Prior to Admission : Independent Current Daily Living Assistance : None Professional Skilled Services : None Current Home Treatments : CPAP Home Equipment : Cane, CPAP unit, Walker Home Equipment Contact Information : [facility] [phone] Special Services and Community Resources : None CONNIE LIVE RN - 10/21/2018 13:02 EDT Electronically signed by Kavita [facility] Conversion Parcel Post Order Clerk Cerner at 11/28/2022 5:40 PM CDT documented in this encounter Plan of Treatment Upcoming Encounters Date Type Department Care Team (Late st Contact Info) Description 08/23/2025 12:45 PM EST Office Visit [facility] Electrophysiology [address] [place] [address] Vik Corcoran MD [address] [facility] [address] [place] [address] documented as of this encounter Visit Diagnoses Not on filedocumented in this encounter Care Teams Restaurant District Manager Relationship Specialty Start Date End Date Alfred Cantu MD [address] [place] [address] PCP - General General Internal Medicine 08/29/22 Lyndsey Key MD [address] [place] [address] [address] [place] [address] Turn Out Interventional Cardiology 08/29/22 Vik Corcoran MD [address] [place] [address] [address] [place] [id number] Turn Out Electrophysiology 05/19/24 documented as of this encounter
--- OUTSIDE RECORDS SUMMARY | 2025-02-18 10:41 | XMS_ITS | Encounter Summary ---
Author Organization [employer] ([place], [place], [place], [place]) Address [address] [place] [address] Care Team Providers Care Manager Copy Name Role Phone Alfred Cantu MD Primary Care Provider [phone] Lyndsey Key MD Unavailable [phone] Vik Corcoran MD Unavailable Encounter Details Date Type Department Care Team (Late st Contact Info) Description 10/31/2018 Transcribed Document [facility] Family Medicine [facility] [place] [address] ProviderRashard MD [address] [place] [address] Social History Tobacco Use Types Packs/Day Years Used Date Smoking Tobacco: Never Assessed Comments Unknown Sex and Gender Information Value Date Recorded Sex Assigned at Not on file Legal Sex Female 1:15 PM CDT Gender Identity Not on file Sexual Orientation Not on file documented as of this encounter Miscellaneous Notes * Cerner Conversion Note - Historical ProviderMD - 10/31/2018 5:00 AM CDT Chart Check - Review Order Profile Entered On: 10/31/2018 3:32 EDT Performed On: 10/31/2018 5:00 EDT by Ivet Smith RN Chart Check Chart Reviewed Date and Time : 10/31/2018 3:32 EDT Ivet Smith RN - 10/31/2018 3:32 EDT documented in this encounter Plan of Treatment Upcoming Encounters Date Type Department Care Team (Late st Contact Info) Description 08/23/2025 12:45 PM EST Office Visit [facility] Electrophysiology [address] [place] [address] [place] [address] [place] [address] [address] [place] [address] documented as of this encounter Visit Diagnoses Not on filedocumented in this encounter Care Teams Manager Copy Relationship Specialty Start Date End Date Alfred Cantu MD [address] [place] [address] PCP - General General Internal Medicine 08/29/22 [place] [address] [place] [address] [address] Latin American Studies Director Interventional Cardiology 08/29/22 Vik Corcoran MD [address] [place] [address] [address] Latin American Studies Director Electrophysiology 05/19/24 documented as of this encounter
--- OUTSIDE RECORDS SUMMARY | 2025-02-18 10:41 | XMS_ITS | Encounter Summary ---
Author Organization [employer] ([place], [place], [place], [place]) Address [address] [place] [address] Care Team Providers Care Data Integrity Analyst Name Role Phone Alfred Cantu MD Primary Care Provider [phone] Lyndsey Key MD Unavailable [phone] Vik Corcoran MD Unavailable Encounter Details Date Type Department Care Team (Late st Contact Info) Description 10/28/2018 Transcribed Document [facility] [place] [facility] [place] [address] ProviderRashard MD [address] [place] [address] Social History Tobacco Use Types Packs/Day Years Used Date Smoking Tobacco: Never Assessed Comments Unknown Sex and Gender Information Value Date Recorded Sex Assigned at Not on file Legal Sex Female 1:15 PM CDT Gender Identity Not on file Sexual Orientation Not on file documented as of this encounter Miscellaneous Notes * Cerner Conversion Note - Rashard ProviderMD - 10/28/2018 3:40 PM CDT Care Management Assessment/Plan Entered On: 10/28/2018 15:47 EDT Performed On: 10/28/2018 15:40 EDT by LAURA YI, Side Laster Tack Care Management Note Anticipated Discharge Date : 10/23/2018 15:00 EDT Care Management Note : Covering today for D/C planning. Discussed pt w/ attending MD and bedside RN, and visited w/ pt and spouse. Pt was not able to D/C yesterday due to BP issues, can't go today due to increased WBC. Explained to pt and spouse. They expressed understanding and request BSC for home use. CM will cont to follow. Care Management Note Report : REGINA TERRY Social Worker - 10/27/18 17:27:13 Continue to follow for discharge needs and arrangements, chart reviewed, admission day #7, on 2 liters O2 REGINA TERRY Social Worker - 10/27/18 17:50:49 Continue to follow for discharge needs and arrangements, chart reviewed, admission day #7, on 2 liters O2, room air=88%; plan is for patient to discharge home with spouse, Braxton ([phone]) who will transport and assist as needed. Orders received for home health and for home oxygen, d/w spouse providers, [facility] and [facility] chosen, referrals made, and portable O2 to be delivered to patient's room prior to discharge and HH to follow up to begin POC upon discharge. CM will continue to follow until discharge to finalize transfer arrangements. REGINA TERRY Social Worker - 10/26/18 17:32:42 Continue to follow for discharge needs and arrangements, chart reviewed, admission day #6, on 2 liters O2/nebs, Zs=028, Cl=95, WBC=18.9, CXR=FINDINGS: The heart is stable in size. The lung rosario demonstrate no significant change in the right base atelectasis. There is no pneumothorax. The support devices are in good position. IMPRESSION: There has been no significant interval change; PT/RA=240' with rwx, PO Prednison, EP completed wound check today on Bi-V-ICD site, plan at discharge (possible Friday10/27/18) is to return home with spouse, Braxton, who will transport and assist with care. HH choice at discharge is [facility], once HH orders for RN/PT/OT in place will make referral and finalize arrangements. Will also watch for patient's room air level on day of discharge in case home oxygen is needed. Will continue to follow. REGINA TERRY Side Laster Tack - 10/23/18 17:17:58 Continue to follow for discharge needs and arrangements, chart reviewed, admission day #3, transfer from SICU, currently on 2 liters O2/nebs, Bj=108, Cl=88, Mg=2.5, WBC=18.3, CXR=pending, on IV Solumedrol q6, PT/OT-will need reeval orders due to recent procedure, patient underwent a Bi-V-ICD placement today. Plan at discharge remains to return home with family support (+/- Home Health). CM will continue to follow. CONNIE LIVE, RN - 10/22/18 13:28:57 improving chf. severe mitral regurg. nicm bipap/02 3L nc. zithromax. lasix iv q 8 hr. PT/OT consults. biv icd tomorrow. CONNIE LIVE, RN - 10/21/18 13:09:33 readmit risk: moderate 59. transfer from [facility]. acute excerbation systolic heart failure. ef 25-30%. severe mitral regurg. severe nicm. CAP. for biv icd today. bipap 50%/02 4-6L nc. zithromax po. zosyn iv. ca gluconate iv x 2. kcl 20meq x 1. na phos iv x 1. PT consult. spoke with Ms. Jimenez. explained role of case management. pt resides in [facility]. she is adl independent. drives car. has cane, walker & cpap provided by [facility]. no current home health or previous rehab stays. discussed dc planning rehab vs home health depending on progress. pt has medicare primary. she advises she has [employer] 2nd insurance. notified Aubrie, pt advocate for inclusion in records. spoke with bedside RNMagda. Documentation Status Complete : Yes LAURA YI, Side Laster Tack - 10/28/2018 15:40 EDT documented in this encounter Plan of Treatment Upcoming Encounters Date Type Department Care Team (Late st Contact Info) Description 08/23/2025 12:45 PM EST Office Visit [facility] Electrophysiology [address] [place] [address] Vik Corcoran MD [address] [place] [address] [address] [place] [address] documented as of this encounter Visit Diagnoses Not on filedocumented in this encounter Care Teams Data Integrity Analyst Relationship Specialty Start Date End Date Alfred Cantu MD [address] [place] [address] PCP - General General Internal Medicine 08/29/22 [place] [address] [place] [address] [address] [place] [id number] Associate Director Of Nursing Interventional Cardiology 08/29/22 Vik Corcoran MD [address] [facility] [address] [place], [place] [id number] Associate Director Of Nursing Electrophysiology 05/19/24 documented as of this encounter
--- OUTSIDE RECORDS SUMMARY | 2025-02-18 10:41 | XMS_ITS | Encounter Summary ---
Author Organization [employer] ([place], [place], [place], [place]) Address [address] [place] [address] Care Team Providers Care Armored Cable Machine Operator Name Role Phone Alfred Cantu MD Primary Care Provider [phone] Lyndsey Key MD Unavailable [phone] Vik Corcoran MD Unavailable Encounter Details Date Type Department Care Team (Late st Contact Info) Description 10/31/2018 Transcribed Document [facility] [place] [address] ProviderRashard MD [address] [place] [id number] Social History Tobacco Use Types Packs/Day Years Used Date Smoking Tobacco: Never Assessed Comments Unknown Sex and Gender Information Value Date Recorded Sex Assigned at Not on file Legal Sex Female 1:15 PM CDT Gender Identity Not on file Sexual Orientation Not on file documented as of this encounter Miscellaneous Notes * Cerner Conversion Note - Rashard ProviderMD - 10/31/2018 11:53 AM CDT Patient: KATHY CARTER Age: 78 years Sex: Female : 1940 Associated Diagnoses: None Author: JEREMY EISENBERG, -INT Review of Systems Constitutional: No fever, No chills. Eye: No recent visual problem, No icterus, No blurring, No visual disturbances. Ear/Nose/Mouth/Throat: No decreased hearing, No sore throat. Respiratory: No shortness of breath, No cough. Cardiovascular: No chest pain, No palpitations, No syncope. Gastrointestinal: No nausea, No vomiting, No hematemesis. Genitourinary: No dysuria, No hematuria. Hematology/Lymphatics: No bleeding tendency, No swollen lymph glands. Endocrine: No cold intolerance, No heat intolerance. Musculoskeletal: No joint pain, No muscle pain. [...] RT_Q6H, PRN: Cough Eliquis: 5 mg, Oral, [id number] Mucinex: 1,200 mg, Oral, BID Normal Saline 500 mL: 250 mL/Hr, IntraVENous Pulmicort Respules: 0.5 mg, Nebulized Inhalation, BID Tessalon: 100 mg, Oral, TID, PRN: Cough Zofran: 4 mg, Oral, Q6H, PRN: Nausea acetaminophen: 325 mg, Oral, Q6H, PRN: Pain (Mild 1-3) amiodarone injection 450 mg + Dextrose 5% in Water intravenous solution 250 mL: Titrate, IntraVENous aspirin: 81 mg, Oral, Daily calcium gluconate: [...] 500 mg oral tablet: 1 Tab, Oral, [id number], for 7 Day(s), 7 Tab, 0 Refill(s) [...] 2 Cap, Oral, Daily, 0 Refill(s), Medications (30) Active Scheduled: (11) albuterol-ipratropium inh 3 mL 3 mL, Nebulized Inhalation, RT_Q6H apixaban 5 mg tab 5 mg 1 Tab, Oral, [id number] aspirin 81 mg chew tab 81 mg [...] 40 mEq 4 Tab, Oral, Daily Continuous: (2) amiodarone 450 mg + Dextrose 5% in Water 250 mL 250 mL, IntraVENous NaCl 0.9% 500 mL 500 mL, IntraVENous, 250 mL/Hr PRN: (17) acetaminophen 325 mg tab 325 [...] History of obstructive sleep apnea / IMO [id number] / Confirmed, Active Problems (9) Allergic asthma Apnea, sleep Chronic GERD Dyspnea H/O hyperlipidemia H/O mitral valve insufficiency History of obstructive sleep apnea Hx of obesity Hypertension Physical Examination VS/Measurements Vitals Signs (last 24 hrs) Last Charted Minimum Maximum Temp 97.3 (OCT 31 09:07) 97.3 (OCT 31:07) 97.5 (OCT 30 14:30) Mon HR 84 (OCT 31 10:51) 57 (OCT 31 05:49) 95 (OCT 30 17:47) Resp Rate 18 (OCT 31 10:51) 16 (OCT 30 14:30) 18 (OCT 31 10:47) SBP 107 (OCT 31 09:07) L 76 (OCT 30 14:30) 123 (OCT 30 13:27) DBP 71 (OCT 31 09:07) L 46 (OCT 30 14:30) 90 (OCT 31 05:49) MAP 85 (OCT 31 09:07) 56 (OCT 30 14:30) 101 (OCT 31 05:47) SpO2 95 (OCT 31 09:00) 95 (OCT 30 14:30) 96 (OCT 30 21:49) General: Alert and oriented, No acute distress. Eye: Extraocular movements are intact, Normal conjunctiva. Sclera: Not icteric. HENT: Normocephalic, Normal hearing, Oral mucosa is moist. Neck: Supple, Non-tender, No jugular venous distention, No lymphadenopathy. Respiratory: Lungs are clear to auscultation, Respirations are non-labored, Breath sounds are equal, Symmetrical chest wall expansion. Cardiovascular: Normal rate, Regular rhythm, No murmur, No gallop, Good pulses equal in all extremities, No edema. Gastrointestinal: Soft, Non-tender, Non-distended, Normal bowel sounds, No organomegaly. Genitourinary: No costovertebral angle tenderness. Lymphatics: No lymphadenopathy neck, axilla, groin. Musculoskeletal: Normal range of motion, Normal strength, No tenderness, No swelling, No deformity. Integumentary: Warm, [place], Moist, No rash. Neurologic: Alert, Oriented, Normal sensory, Normal motor function, No focal deficits, Cranial Nerves II-XII are grossly intact. Psychiatric: Cooperative, Appropriate mood & affect, Normal judgment. Review / Management Results review: Labs (Last four charted values) WBC C 35.1 (OCT 31) C 39.8 (OCT 30) C 39.7 (OCT 29) C 34.7 (OCT 28) HB L 10.5 (OCT 31) 11.7 (OCT 30) 12.2 (OCT 29) 12.7 (OCT 28) HCT L 32.0 (OCT 31) 35.3 (OCT 30) 36.9 (OCT 29) 38.6 (OCT 28) Plt L 138 (OCT 31) 169 (OCT 30) 174 (OCT 29) 187 (OCT 28) Na L 122 (OCT 31) L 126 (OCT 30) L 128 (OCT 28) L 129 (OCT 27) K 4.0 (OCT 31) 4.6 (OCT 30) 5.1 (OCT 28) 4.3 (OCT 27) Cl L 86 (OCT 31) L 88 (OCT 30) L 92 (OCT 28) L 88 (OCT 27) CO2 28 (OCT 31) 30 (OCT 30) 31 (OCT 28) H 34 (OCT 27) BUN H 39 (OCT 31) H 44 (OCT 30) H 48 (OCT 28) H 42 (OCT 27) Cr H 1.20 (OCT 31) H 1.20 (OCT 30) 1.00 (OCT 28) H 1.10 (OCT 27) Glu R H 119 (OCT 31) 91 (OCT 30) 93 (OCT 28) 104 (OCT 27) Ca L 8.3 (OCT 31) 9.0 (OCT 30) 9.4 (OCT 28) 9.0 (OCT 27) Lactic 0.8 (OCT 21) AST 21 (OCT 31) 18 (OCT 21) ALT 21 (OCT 31) 27 (OCT 21) ALK P 63 (OCT 31) 66 (OCT 21) T Bili 0.6 (OCT 31) 0.8 (OCT 21) PTN L 5.5 (OCT 31) L 6.2 (OCT 21) ALB L 2.8 (OCT 31) L 3.0 (OCT 21) Troponin H 0.079 (OCT 21) , OCT 31 05:34 L 122 L 86 H 39 / H 119 4.0 28 H 1.20 \ OCT 31 05:34 \ L 10.5 / C 35.1 L 138 / L 32.0 \, No Radiology Results Found. Impression and Plan 1. Leukocytosis: persistent and consistently >30k. High risk for PNA but no significant symptoms. Recent AICD but pocket looks ok. CT chest noted. Blood cx negative so far, appreciate ID consultation - cont doxy for now 2. Multiple PVCs and nonsustained V. tach. Increased her beta ina. Stable 3. 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 Stable creatinine at 1.2 today. ACEi held. - monitor BMP - continue aldactone 4. RLL consolidation: possible pneumonia. No symptoms and asymptomatic. Recently treated for CAP. Procalcitonin normal. - - continue doxycycline 5. Orthostatic hypotension: improved after decrease her meds and severe MR with aggressive diuresis. Stable 6. Acute systolic CHF, duration unknown. Echo showing ef of 15%. EP consulted and s/p Bi-V implant. - Bumex 1 mg twice a day, monitor renal function very closely, - monitor I&O and daily weights - continue coreg, aspirin, would hold on spironolactone,valsartan,with slightly increasing creatinine in face of diuresis 7. RSV bronchitis- improving - solumedrol started on 10/22 , switch her to oral taper, - continue nebs and mucinex 8. Hyponatremia: decreasing sodium since admission, may be from diuresis. Nephrology consulted. FULL CODE documented in this encounter Plan of Treatment Upcoming Encounters Date Type Department Care Team (Late st Contact Info) Description 08/23/2025 12:45 PM EST Office Visit [facility] Electrophysiology [address] [place] [address] [place] [address] [place] [address] [address] [place] [address] documented as of this encounter Visit Diagnoses Not on filedocumented in this encounter Care Teams Armored Cable Machine Operator Relationship Specialty Start Date End Date Alfred Cantu MD [address] [place] [address] [place] [address] PCP - General General Internal Medicine 08/29/22 [place] [address] [place] [address] [address] [place] [address] Improvement Nurse Interventional Cardiology 08/29/22 Vik Corcoran MD [address] [place] [address] [address] Improvement Nurse Electrophysiology 05/19/24 documented as of this encounter
--- OUTSIDE RECORDS SUMMARY | 2025-02-18 10:41 | XMS_ITS | Encounter Summary ---
Author Organization [employer] ([place], [place], [place], [place]) Address [address] [place] [address] Care Team Providers Care Making Machine Operator Name Role Phone Alfred Cantu MD Primary Care Provider [phone] Lyndsey Key MD Unavailable [phone] Vik Corcoran MD Unavailable Encounter Details Date Type Department Care Team (Late st Contact Info) Description 10/28/2018 Transcribed Document [facility] [place] [facility] [place] [address] ProviderRashard MD [address] [place] [address] Social History Tobacco Use Types Packs/Day Years Used Date Smoking Tobacco: Never Assessed Comments Unknown Sex and Gender Information Value Date Recorded Sex Assigned at Not on file Legal Sex Female 1:15 PM CDT Gender Identity Not on file Sexual Orientation Not on file documented as of this encounter Miscellaneous Notes * Cerner Conversion Note - Rashard ProviderMD - 10/28/2018 5:00 AM CDT Chart Check - Review Order Profile Entered On: 10/28/2018 4:07 EDT Performed On: 10/28/2018 5:00 EDT by Alba Smallwood Rn Chart Check Chart Reviewed Date and Time : 10/28/2018 4:07 EDT Power[employer]ans Initiated/Discontinued as Appropriate : Yes All Active Orders Reviewed : Yes Alba Smallwood Rn - 10/28/2018 4:07 EDT Electronically signed by Kavita [facility] Conversion Data Engineer Cerner at 11/28/2022 5:35 PM CDT documented in this encounter Plan of Treatment Upcoming Encounters Date Type Department Care Team (Late st Contact Info) Description 08/23/2025 12:45 PM EST Office Visit [facility] Electrophysiology [address] [place] [phone] [place] [address] [place] [address] [address] [place] [address] documented as of this encounter Visit Diagnoses Not on filedocumented in this encounter Care Teams Making Machine Operator Relationship Specialty Start Date End Date Alfred Cantu MD [address] [place] [address] PCP - General General Internal Medicine 08/29/22 [place] [address] [place] [address] [address] [place] [address] Fire Tower Keeper Interventional Cardiology 08/29/22 [place] [address] [place] [address] [address] [place] [address] Fire Tower Keeper Electrophysiology 05/19/24 documented as of this encounter
--- OUTSIDE RECORDS SUMMARY | 2025-02-18 10:41 | XMS_ITS | Encounter Summary ---
Author Organization [id number] ([place], [place], [place], [place]) Address [address] [place] [address] Care Team Providers Care Database Marketing Specialist Name Role Phone Alfred Cantu MD Primary Care Provider [phone] Lyndsey Key MD Unavailable [phone] Vik Corcoran MD Unavailable Encounter Details Date Type Department Care Team (Late st Contact Info) Description 10/30/[address] [facility] [place] [facility] [place] [address] ProviderRashard MD [address] [place] [address] Social History Tobacco Use Types Packs/Day Years Used Date Smoking Tobacco: Never Assessed Comments Unknown Sex and Gender Information Value Date Recorded Sex Assigned at Not on file Legal Sex Female 1:15 PM CDT Gender Identity Not on file Sexual Orientation Not on file documented as of this encounter Miscellaneous Notes * Cerner Conversion Note - Rashard ProviderMD - 10/30/2018 4:14 PM CDT Rapid Response Team Documentation Entered On: 10/30/2018 16:15 EDT Performed On: 10/30/2018 16:14 EDT by Courtney Shaw RN Rapid Response Event Rapid Response Team Arrival Time : 10/30/2018 15:53 EDT Rapid Response Team Event End Time : 10/30/2018 16:10 EDT Rapid Response Event Intiated By : Hospital Staff Rapid Response Team Initiation Reason : Peripheral IV start Rapid Response Event Location Type : Other: 3E Rapid Response Team Initiation Reason Details : 316 Contacted for difficult PIV insertion. 22g inserted to left hand. Patient tolerated well. Rapid Response Admission Diagnosis : Cardiomyopathy due [...] Drug Rapid Response Recent Vital Signs : 10/30/2018 14:30 Systolic Blood Pressure 76 10/30/2018 14:30 Diastolic Blood Pressure 46 10/30/2018 14:30 Heart Rate Monitored 93 10/30/2018 14:30 Respiratory Rate 16 10/30/2018 14:30 Temperature, Fahrenheit 97.5 10/30/2018 14:30 Oxygen Saturation 95 Rapid Response Recent Lab Results : 10/30/2018 [...] Mass Index: 38 kg/m2 High (10/20/18 23:04:00) Patient Condition at End of Event : No S/S of Acute Distress Patient Disposition Post Event : No change in location/level of care Rapid Response Database Marketing Specialist #1 : Courtney Shaw, RN Courtney Shaw, RN - 10/30/2018 16:14 EDT documented in this encounter Plan of Treatment Upcoming Encounters Date Type Department Care Team (Late st Contact Info) Description 08/23/2025 12:45 PM EST Office Visit [facility] Electrophysiology [address] [place] [address] Vik Corcoran MD [address] [place] [address] [address] [place] [address] documented as of this encounter Visit Diagnoses Not on filedocumented in this encounter Care Teams Database Marketing Specialist Relationship Specialty Start Date End Date Alfred Cantu MD [address] [place] [address] [place] [address] PCP - General General Internal Medicine 08/29/22 Lyndsey Key MD [address] [facility] [address] [place], [place] [id number] Barometers Calibrator Interventional Cardiology 08/29/22 Vik Corcoran MD [address] [facility] [address] [place] [address] Barometers Calibrator Electrophysiology 05/19/24 documented as of this encounter
--- OUTSIDE RECORDS SUMMARY | 2025-02-18 10:41 | XMS_ITS | Encounter Summary ---
Author Organization [employer] ([place], [place], [place], [place]) Address [address] [place] [address] Care Team Providers Care Ethnology Professor Name Role Phone Alfred Cantu MD Primary Care Provider [phone] Lyndsey Key MD Unavailable [phone] Vik Corcoran MD Unavailable Encounter Details Date Type Department Care Team (Late st Contact Info) Description 10/20/2018 Transcribed Document [facility] [place] [facility] [place] [address] ProviderRashard MD [address] [place] [address] Social History Tobacco Use Types Packs/Day Years Used Date Smoking Tobacco: Never Assessed Comments Unknown Sex and Gender Information Value Date Recorded Sex Assigned at Not on file Legal Sex Female 1:15 PM CDT Gender Identity Not on file Sexual Orientation Not on file documented as of this encounter Miscellaneous Notes * Cerner Conversion Note - Rashard ProviderMD - 10/20/2018 11:50 PM CDT Admission History, Adult Entered On: 10/20/2018 23:59 EDT Performed On: 10/20/2018 23:50 EDT by Vernon Olsen RN Advance Directive Patient has Advance Directive *Q : Yes, Advance Directive not with the patient Advance Directive Type : Living will Copy Advance Directive Verified/on Chart : No Vernon Olsen RN - 10/20/2018 23:50 EDT Anesthesia/Transfusion History Family History of Anesthesia Reaction : No prior transfusion(s) Transfusion History : Prior anesthesia reaction Type of Anesthesia Reaction : Other: nausea and vomiting Family History of Anesthesia Reaction : None Vernon Olsen RN - 10/20/2018 23:50 EDT Functional Assessment Living Situation : Home Patient Lives With : Spouse Current Home Treatments : CPAP Vernon Olsen RN - 10/20/2018 23:50 EDT General Info Want Family/Rep/Phys Notified of Admit : No Emergency Contact #1 : Braxton Jimenez Emergency Contact #1 Emergency Contact #1 Relationship : Emergency Contact #2 : Vernon Emergency Contact #2 Emergency Contact #2 Relationship : Son Primary Language : [place] Communication Barrier : None Vernon Olsen RN - 10/20/2018 23:50 EDT Fall Risk Scales ABCs Fall Injury Risk Identification : None THOMAS Hx Falls Immediate/Within 3 Months : No Thomas Secondary Diagnosis : Yes THOMAS Use of Ambulatory Aid : Bed rest/Nurse assist THOMAS IV Therapy or IV Access : Yes Thomas Gait/Transferring : Normal, bedrest, immobile Thomas Mental Status : Oriented to own ability Thomas Fall Risk Score : 35 THOMAS Fall Scale Risk Level : 25-45 Medium Risk [place] Fall Interventions : Adequate lighting, Assistive devices within reach, Bed in low position, Call device within reach, Fall prevention handout/education per facility policy, Frequent orientation to call device, Frequent orientation to surroundings, Hourly comfort/safety rounds, Non-slip footwear, Personal items within reach, Reinforced to call for assistance before getting out of bed, Room free of clutter/spills, Upper side-rails up, Wheels locked, Wires/Cords secured Vernon Olsen RN - 10/20/2018 23:50 EDT Health Histories Smoking Status : Never (less than 100 in lifetime; none in last 30 days) Smokeless Tobacco Status : Never Vernon Olsen RN - 10/20/2018 23:50 EDT Social History (As Of: 10/20/2018 23:59:51 EDT) Tobacco: Smoking Status Never smoker. (Last Updated: 07/08/2017 07:41:27 EST by ISRA JONES RN) Alcohol: Alcohol Use History No. (Last Updated: 07/08/2017 07:41:33 EST by ISRA JONES, RN) Substance Abuse: Drug Use Hx: No. Use in Last 12 Months: No. (Last Updated: 07/08/2017 07:41:39 EST by ISRA JONES, BRANDEE) Height and Weight, Clinical Dosing Height Source : Stated Height Entry Format : [employer] Height, Feet : 5 ft(Converted to: 152 cm, 60 Inch) Height, Inches : 0 Inch(Converted to: 0 ft 0 Inch, 0.00 cm) Clinical Height : 152.4 cm Weight Source : Bed scale Weight Entry Format : Metric, kilograms Weight, Kilograms : 88.2 kg(Converted to: 194 lb 7 oz) Clinical Dosing Weight : 88.2 kg Body Surface Area (BSA) : 1.84 m2 Body Mass Index : 38 kg/m2 (HI) [place] Body Weight : 45 kg Vernon Olsen RN - 10/20/2018 23:50 EDT Infectious Disease History Infectious Disease History : Chicken pox/Shingles, Measles, Mumps Active Surveillance Screen Assessment : Patient transferred from another hospital/ED Active Surveillance Screen Positive : Yes Fever/Chills Last 48 Hours : No Travel To Regions with Travel Advisories : No Travel Outside [place] Within Last 30 Days : No Contact With Traveler to Advisory Region : No Tuberculosis Symptoms : None Vernon Olsen RN - 10/20/2018 23:50 EDT Tetanus Immunization Status Previous Tetanus Immunizations : No qualifying data available. Vernon Olsen RN - 10/20/2018 23:50 EDT Influenza Vaccine Asmt, Adult Previous Vaccines from Immunization Schedule : No qualifying data available. Influenza Immunization, Current Season : Yes Vernon Olsen RN - 10/20/2018 23:50 EDT Pneumococcal Vaccine Previous Vaccines from Immunization Schedule : No qualifying data available. Pneumonia Immunization Received : Yes Pneumonia Immunization Date : 01/09/2018 EDT Vernon Olsen RN - 10/20/2018 23:50 EDT Nutrition History Eating Poorly Due to Decreased Appetite : Yes Unplanned Weight Loss in Past 3-6 Months : No Malnutrition Screening Tool Total(mal) : 1 Malnutrition Screening Tool Risk Level : Patient not at risk Vernon Olsen RN - 10/20/2018 23:50 EDT Psychosocial History Currently in Unsafe Situation : No Tried to Harm Yourself in the Past? : No Thoughts of Harming/Killing Yourself : No Vernon Olsen RN - 10/20/2018 23:50 EDT Sleep Apnea Risk Assmt BiPAP/CPAP Ordered for Home Use : Yes Hx of Obstructive Sleep Apnea Diagnosis : Yes BiPAP/CPAP Used at Home : Yes Age over 50 Years Old : Yes Gender Male : No Vernon Olsen RN - 10/20/2018 23:50 EDT Valuables and Belongings Valuables and Belongings : Clothing Clothing : Common streetwear Clothing Disposition : With patient Vernon Olsen RN - 10/20/2018 23:50 EDT Electronically signed by [facility] Conversion Graphic Production Artist Cerner at 11/28/2022 5:44 PM CDT documented in this encounter Plan of Treatment Upcoming Encounters Date Type Department Care Team (Late st Contact Info) Description 08/23/2025 12:45 PM EST Office Visit [facility] Electrophysiology [address] [place] [address] Vik Corcoran MD [address] [place] [address] [address] [id number] documented as of this encounter Visit Diagnoses Not on filedocumented in this encounter Care Teams Ethnology Professor Relationship Specialty Start Date End Date Alfred Cantu MD [address] [place] [address] [place] [address] PCP - General General Internal Medicine 08/29/22 [place] [address] [place] [address] [address] [place] [address] Buy Boat Operator Interventional Cardiology 08/29/22 [place] [address] [place] [address] [address] Buy Boat Operator Electrophysiology 05/19/24 documented as of this encounter
--- OUTSIDE RECORDS SUMMARY | 2025-02-18 10:41 | XMS_ITS | Encounter Summary ---
Author Organization [employer] ([place], [place], [place], [place]) Address [address] [place] [address] Care Team Providers Care Set Up Person Name Role Phone Alfred Cantu MD Primary Care Provider Lyndsey Key MD Unavailable [phone] Vik Corcoran MD Unavailable Encounter Details Date Type Department Care Team (Late st Contact Info) Description 10/29/2018 Transcribed Document [facility] [place] Family Medicine [facility] [place] [address] ProviderRashard MD [address] [place] [address] Social [...] Cerner Conversion Note - Historical ProviderMD - 10/29/2018 5:00 AM CDT Chart Check - Review Order Profile Entered On: 10/29/2018 5:19 EDT Performed On: 10/29/2018 5:00 EDT by Ivet Smith RN Chart Check Chart Reviewed Date and Time : 10/29/2018 5:19 EDT Ivet Smith RN - 10/29/2018 5:19 EDT documented in this encounter Plan of Treatment Upcoming Encounters Date Type Department Care Team (Late st Contact Info) Description 08/23/2025 12:45 PM EST Office Visit [facility] Electrophysiology [address] [place] [address] [place] [address] [place] [address] [address] [place] [address] documented as of this encounter Visit Diagnoses Not on filedocumented in this encounter Care Teams Set Up Person Relationship Specialty Start Date End Date Alfred Cantu MD [address] [place] [address] [place] [address] PCP - General General Internal Medicine 08/29/22 [place] [address] [place] [address] [address] Manager Data Center Interventional Cardiology 08/29/22 Vik Corcoran MD [address] [place] [address] [address] Manager Data Center Electrophysiology 05/19/24 documented as of this encounter
--- OUTSIDE RECORDS SUMMARY | 2025-02-18 10:41 | XMS_ITS | Encounter Summary ---
Author Organization [employer] ([place], [place], [place], [place]) Address [address] [place] [address] Care Team Providers Care Professor Criminal Justice Name Role Phone Alfred Cantu MD Primary Care Provider Lyndsey Key MD Unavailable [phone] Vik Corcoran MD Unavailable Encounter Details Date Type Department Care Team (Late st Contact Info) Description 10/28/2018 Transcribed Document [facility] [place] Medicine [facility] [place] [address] ProviderRashard MD [address] [place] [address] Social History Tobacco Use Types Packs/Day Years Used Date Smoking Tobacco: Never Assessed Comments Unknown Sex and Gender Information Value Date Recorded Sex Assigned at Not on file Legal Sex Female 1:15 PM CDT Gender Identity Not on file Sexual Orientation Not on file documented as of this encounter Miscellaneous Notes * Cerner Conversion Note - Rashard Gonzalez MD - 10/28/2018 8:50 AM CDT Patient: KATHY CARTER Age: 78 years Sex: Female : 1940 Associated Diagnoses: None Author: JOSE MEDRANO MD Subjective Breathing is better, still coughing, on 2 L oxygen afebriel but wbc worse , mild tenderness on AICD place Good urine output, creatinine stable sodium is better orthostatic hypotension better No nausea no vomiting No chest pain, No dysuria Objective Intake and Output Intake & Output Totals Last 24 Hours (7a-7a) Intake (7 Events) Oral Fluids (1025 mL) Output (5 Events) Urine Voided (Volume) (1550 mL) Input Total: 1025 mL Output Total: 1550 mL Balance: -525 mL VS/Measurements Vitals Signs (last 24 hrs) Last Charted Minimum Maximum Temp 98 (OCT 28 06:00) 97.8 (OCT 28 02:06) 98.4 (OCT 27 10:05) Mon HR 61 (OCT 28 08:43) 47 (OCT 27 14:00) 122 (OCT 28 06:00) Resp Rate 20 (OCT 28 06:00) 15 (OCT 27 20:46) 20 (OCT 28 06:00) SBP H 141 (OCT 28 08:43) L 76 (OCT 27 13:48) H 157 (OCT 28 08:19) DBP 90 (OCT 28 08:43) L 46 (OCT 27 13:48) H 98 (OCT 28 06:00) MAP 120 (OCT 28 08:43) 54 (OCT 27 13:48) 120 (OCT 28 08:43) SpO2 L 87 (OCT 27 13:48) L 87 (OCT 27 13:48) L 88 (OCT 27 13:30) General: Alert and oriented, No acute distress. Eye: Pupils are equal, round and reactive to light, Normal conjunctiva. HENT: Normocephalic, Normal hearing, tongue is moist with no obvious thrush seen. . Pacemaker incision with no l bleed, minimal subcutaneous hematoma,striped bruse at her sling on left breat Respiratory: on NC, occasional wheezing, no rhonchi. Cardiovascular: Normal rate, Regular rhythm, No murmur, trace LE edema. Gastrointestinal: Soft, Non-tender, Non-distended, Normal bowel sounds. Integumentary: Warm, Dry. Neurologic: Alert, Oriented. Psychiatric: Cooperative, Appropriate mood & affect. Results Review General results Interpretation: OCT 28 04:36 L 128 L 92 H 48 / 93 5.1 31 1.00 \ OCT 28 04:36 \ 12.7 / C 34.7 187 / 38.6 \ Labs (Last four charted values) WBC C 34.7 (OCT 28) H 23.9 (OCT 27) H 18.9 (OCT 18) H 23.8 (OCT 17) HB 12.7 (OCT 20) 12.0 (OCT 27) 13.3 (OCT 18) 11.6 (OCT 17) HCT 38.6 (OCT 20) 36.7 (OCT 27) 43.7 (OCT 18) 35.2 (OCT 17) Plt 187 (OCT 20) 185 (OCT 19) 170 (OCT 18) 196 (OCT 17) Na L 128 (OCT 28) L 129 (OCT 27) L 129 (OCT 18) L 127 (OCT 25) K 5.1 (OCT 28) 4.3 (OCT 27) 4.6 (OCT 18) 4.8 (OCT 17) Cl L 92 (OCT 28) L 88 (OCT 27) L 95 (OCT 18) L 90 (OCT 25) CO2 31 (OCT 28) H 34 (OCT 27) 24 (OCT 18) 31 (OCT 17) BUN H 48 (OCT 28) H 42 (OCT 27) H 36 (OCT 18) H 36 (OCT 17) Cr 1.00 (OCT 28) H 1.10 (OCT 27) 1.00 (OCT 18) 1.00 (OCT 17) Glu R 93 (OCT 28) 104 (OCT 27) 105 (OCT 18) H 151 (OCT 17) Ca 9.4 (OCT 28) 9.0 (OCT 27) 8.9 (OCT 18) 8.6 (OCT 17) Lactic 0.8 (OCT 21) AST 18 (OCT 21) ALT 27 (OCT 21) ALK P 66 (OCT 21) T Bili 0.8 (OCT 21) PTN L 6.2 (OCT 21) ALB L 3.0 (OCT 21) Troponin H 0.079 (OCT 21) Radiology Results (Last 48 hours) [id number] -- 10/20/2018 23:00 CR Chest 1 Vw Portable (10/26/2018 15:45) Result: PORTABLE CHEST 10/26/2018 2:26 PM HISTORY: Dyspnea.COMPARISON: October 24, 2018.FINDINGS: The heart is stable in size. The lung rosario demonstrate nosignificant change in the right base atelectasis. There is nopneumothorax. The support devices are in good position. IMPRESSION: There has been no significant interval change .Continued follow-up recommended.Images reviewed, interpreted, and dictated by Dr. Figueroa Jasso.Transcribed by Karla Almanzar (R).I have personally viewed, interpreted and dictated the examination. Liban read and agree with the above final transcribed report. 10/21/18 echo: Normal sized left ventricle. Mild left ventricular hypertrophy. Visually estimated ejection fraction 15-20%. Severe left ventricular systolic dysfunction. Septal motion c/w conduction abnormality. No masses or thrombi are seen. Trace pericardial effusion. Impression and Plan leukocytosis worsenig stillcoughing high risk for pna and concern for AICD infection w recent insertion ?? cxr 10-26 reviwed myself r ll opcity read as atelectais vs pna but she is afebrile was on steroid , oxygn requiermetn is better sputum cx requested , the AICD pocket is tender CT chest today blood cx ID consultation orthostatic hypotension better s/p decrease her meds and severe MR with aggressive diuresis s/p decreae diouresis soco compresing hose Acute respiratory failure hypoxic secondary to above Continue oxygen to keep sat more than 92 Symptomatically treatment steroid taped decrease Diuresis, ct chest today encourage spirometrey hyponatremia, poa, ongoing, stable - Improving, continue monitor in face of diuresis, Acute kidney injury,better In face of contrast, and ARBS diuresis Monitor very closely Adjust medication cont stop the Aldactone and hold lisinpril w low dose as Monitor in face of diuresis, so far stable, acute systolic chf - duration unknown - Echo showing ef of 15% - EP consult .s/p Bi-V implant, , minimal bleeding,pressure dressing applied - Bumex, 1 mg twice a day, monitor renal function very closely, - monitor I&O and daily weights - continue coreg, aspirin, would hold on spironolactone,valsartan,with slightly increasing creatinine in face of diuresis RSV bronchitis- improving - solumedrol started on 10/22 , switch her to oral taper, - continue nebs and mucinex severe mitral regurgitation - recent community acquired pna - pt had been on antibiotics for a few days prior to admission - zosyn stopped, procal nml - s.p azithro as above vaginal yeast infection -diflucan x 1 on 10/22 thrush - nystatin swish and swallow history of asthma - prn nebs - mucinex anxiety - continue home prn valium possible discharge roxana hartley d/w rn time spent: 29 min Electronically signed by [facility] Conversion Engine Specialist Cerner at 11/28/2022 5:36 PM CDT documented in this encounter Plan of Treatment Upcoming Encounters Date Type Department Care Team (Late st Contact Info) Description 08/23/2025 12:45 PM EST Office Visit [facility] Electrophysiology [address] [place] [address] [place] [address] [place] [address] [address] [place], [place] [id number] documented as of this encounter Visit Diagnoses Not on filedocumented in this encounter Care Teams Professor Criminal Justice Relationship Specialty Start Date End Date Alfred Cantu MD [address] [place] [address] [place] [address] PCP - General General Internal Medicine 08/29/22 Lyndsey Key MD [address] [place] [address] [address] [place] [address] Postpartum Nurse Interventional Cardiology 08/29/22 Vik Corcoran MD [address] [place] [address] [address] [place] [address] Postpartum Nurse Electrophysiology 05/19/24 documented as of this encounter
--- OUTSIDE RECORDS SUMMARY | 2025-02-18 10:41 | XMS_ITS | Encounter Summary ---
Author Organization [employer] ([place], [place], [place], [place]) Address [address] [place] [address] Care Team Providers Care Production Cell Leader Name Role Phone Alfred Cantu MD Primary Care Provider [phone] Lyndsey Key MD Unavailable [phone] Vik Corcoran MD Unavailable Encounter Details Date Type Department Care Team (Late st Contact Info) Description 10/31/2018 Transcribed Document [facility] [place] [facility] [place] [address] ProviderRashard MD [address] [place] [address] Social History Tobacco Use Types Packs/Day Years Used Date Smoking Tobacco: Never Assessed Comments Unknown Sex and Gender Information Value Date Recorded Sex Assigned at Not on file Legal Sex Female 1:15 PM CDT Gender Identity Not on file Sexual Orientation Not on file documented as of this encounter Miscellaneous Notes * [employer]ner Conversion Note - Rashard ProviderMD - 10/31/2018 2:00 AM CDT Barbed Wire Machine Operator Details Entered On: 10/31/2018 1:26 EDT Performed On: 10/31/2018 2:00 EDT by Ivet Smith RN Order Details Transport Mode Order Detail : Wheelchair Isolation Precautions Order Detail : Droplet precautions Order Detail : N/A IV Order Detail : 1 Oxygen Order Detail : 1 Nurse Collect Order Detail : 0 Lift/Transfer : Minimal Central Line Order Detail : No Room Service : Appropriate Arterial Line : No Ivet Smith RN - 10/31/2018 1:26 EDT documented in this encounter Plan of Treatment Upcoming Encounters Date Type Department Care Team (Late st Contact Info) Description 08/23/2025 12:45 PM EST Office Visit [facility] Electrophysiology [address] [place] [id number] Vik Corcoran MD [address] [place] [address] [address] [place], [place] [id number] documented as of this encounter Visit Diagnoses Not on filedocumented in this encounter Care Teams Production Cell Leader Relationship Specialty Start Date End Date Alfred Cantu MD [address] [place] [address] [place] [address] PCP - General General Internal Medicine 08/29/22 Lyndsey Key MD [address] [place] [address] [address] Society Reporter Interventional Cardiology 08/29/22 Vik Corcoran MD [address] [place] [address] [id number] Society Reporter Electrophysiology 05/19/24 documented as of this encounter
--- OUTSIDE RECORDS SUMMARY | 2025-02-18 10:41 | XMS_ITS | Encounter Summary ---
Author Organization [employer] ([place], [place], [place], [place]) Address [address] [place] [address] Care Team Providers Care Clinic Physician Name Role Phone Alfred Cantu MD Primary Care Provider [phone] Lyndsey Key MD Unavailable [phone] Vik Corcoran MD Unavailable Reason for Referral * CAT Scan (Routine) - Closed Specialty Diagnoses / Procedures Referred By Contac t Referred To Contact Radiology Diagnoses Spinal stenosis, lumbar region, with neurogenic claudication Procedures CT spine lumbar without contrast Julisa Abbott, ILAN Phone: tel: fax: Referral ID Status Reason Start Date Expiration Date Visits Re quested Visits Authorized [id number] Closed 06/08/2024 06/08/2025 1 1 * Flouroscopy (Routine) - Authorized Specialty Diagnoses / Procedures Referred By Contac t Referred To Contact Diagnoses Spinal stenosis, lumbar region, with neurogenic claudication Procedures [place] myelogram lumbar Julisa Abbott PA Phone: tel: fax: Referral ID Status Reason Start Date Expiration Date V isits Requested Visits Authorized [id number] Authorized 06/08/2024 06/08/2025 1 1 Encounter Details Date Type Department Care Team (Late st Contact Info) Description 06/08/2024 Outside Orders [facility] Central Scheduling [address] [place] [address] Julisa Abbott PA [address] [phone] Spinal stenosis, lumbar region, with neurogenic claudication (Primary Dx) Social History [...] Date Ezra rded Speak language other than Thai at home Not on file 08/29/2023 Want [...] Encounters Date Type Department Care Team (Late Contact Info) Description 08/23/2025 12:45 PM EST Office Visit [facility] Electrophysiology [address] [place] [address] Vik Corcoran MD [address] [place] [address] [address] [place] [address] documented as of this encounter Results * CT spine lumbar without contrast (06/24/2024 12:29 PM EST) Anatomical Region Laterality Modality T-spine, L-spine, Pelvis Compute d Tomography (CT) 06/24/2024 4:39 PM EST Impressions 06/24/2024 5:59 PM EST Significant degenerative changes, as above, most pronounced at L2-S1. No acute fracture. Images reviewed, interpreted, and dictated by Dr. Brent Yanez. Transcribed by Lillian Ortiz PA-C. Narrative 06/24/2024 5:[address] LUMBAR SPINE 06/24/2024 12:29 PM HISTORY: Chronic lumbar back pain, difficulty walking. PROCEDURE: Axial images were obtained through the lumbar spine by computed tomography. Reconstruction images were also performed. This study was performed with techniques to keep radiation doses as low as reasonably achievable, (ALARA). Individualized dose reduction techniques using automated exposure control or adjustment of mA and/or kV according to the patient size were employed. FINDINGS: There is leftward curvature of the lumbar spine. There is diffuse disc space narrowing noted. No acute fracture is identified. T11-T12: Minimal annular bulge. No stenosis. T12-L1: Minimal annular bulge. No stenosis. L1-L2: Moderate annular bulge with osteophytes. Facet and ligament flavum hypertrophy. Mild canal narrowing. Moderate right neural foraminal narrowing. L2-L3: Large annular bulge asymmetric to the left. Moderate facet overgrowth limited to mild hypertrophy. Moderate central canal stenosis. Moderate to severe left foraminal stenosis. L3-L4: Moderate annular bulge. Moderate posterior element hypertrophy. Mild central canal narrowing. Mild foraminal narrowing. L4-L5: Moderate annular bulge with posterior osteophytes. Moderate posterior element hypertrophy. Moderate central canal stenosis. Moderate to severe left foraminal stenosis. L5-S1: Moderate annular bulge. Moderate facet hypertrophy. Moderate central canal stenosis. Lateral recess stenosis noted bilaterally. Severe left foraminal stenosis. Procedure Note Brent Yanez MD - 06/24/2024 CT LUMBAR SPINE 06/24/2024 12:29 PM HISTORY: Chronic lumbar back pain, difficulty walking. PROCEDURE: Axial images were obtained through the lumbar spine by computed tomography. Reconstruction images were also performed. This study was performed with techniques to keep radiation doses as low as reasonably achievable, (ALARA). Individualized dose reduction techniques using automated exposure control or adjustment of mA and/or kV according to the patient size were employed. FINDINGS: There is leftward curvature of the lumbar spine. There is diffuse disc space narrowing noted. No acute fracture is identified. T11-T12: Minimal annular bulge. No stenosis. T12-L1: Minimal annular bulge. No stenosis. L1-L2: Moderate annular bulge with osteophytes. Facet and ligament flavum hypertrophy. Mild canal narrowing. Moderate right neural foraminal narrowing. L2-L3: Large annular bulge asymmetric to the left. Moderate facet overgrowth limited to mild hypertrophy. Moderate central canal stenosis. Moderate to severe left foraminal stenosis. L3-L4: Moderate annular bulge. Moderate posterior element hypertrophy. Mild central canal narrowing. Mild foraminal narrowing. L4-L5: Moderate annular bulge with posterior osteophytes. Moderate posterior element hypertrophy. Moderate central canal stenosis. Moderate to severe left foraminal stenosis. L5-S1: Moderate annular bulge. Moderate facet hypertrophy. Moderate central canal stenosis. Lateral recess stenosis noted bilaterally. Severe left foraminal stenosis. IMPRESSION: Significant degenerative changes, as above, most pronounced at L2-S1. No acute fracture. Images reviewed, interpreted, and dictated by Dr. Brent Yanez. Transcribed by Lillian Ortiz PA-C. us Provider Not In The System [facility] IMG CT ORDERAB LES Final Result documented in this encounter Visit Diagnoses Diagnosis Spinal stenosis, lumbar region, with neurogenic claudication- Primary Spinal stenosis, lumbar region, with neurogenic claudication documented in this encounter Care Teams Clinic Physician Relationship Specialty Start Date End Date Alfred Cantu MD [address] [place] [address] PCP - General General Internal Medicine 08/29/22 Lyndsey Key MD [address] [facility] [address] [place] [address] Cognos Analyst Interventional Cardiology 08/29/22 Vik Corcoran MD [address] [facility] [address] [place] [address] Cognos Analyst Electrophysiology 05/19/24 documented as of this encounter
--- OUTSIDE RECORDS SUMMARY | 2025-02-18 10:41 | XMS_ITS | Clinical Summary ---
Author Organization [facility] Address [address] [place] [phone] Phone Care Team Providers Care Mathematics Professor Name Role Phone Unavailable Primary Care Provider Unavailabl e Allergies Active Allergy Reactions Criticality Noted Date Comments Pollen Extracts Cough 11/26/2023 Medications No known medications Social History Tobacco Use Types Packs/Day Years Used Date Smoking Tobacco: Never Smokeless Tobacco: Never Alcohol Use Standard Drinks/Week Comments Never 0 (1 standard drink = 0.6 oz pur e alcohol) Comments Unknown Sex and Gender Information Value Date Recorded Sex Assigned at Not on file Legal Sex Female 2:18 PM EDT Gender Identity Not on file Sexual Orientation Not on file Obstetrics History Last Filed Vital Signs Vital Sign Reading Time Taken Comments Blood Pressure - - Pulse - - Temperature - - Respiratory Rate - - Oxygen Saturation - - Inhaled Oxygen Concentration - - Weight 86.2 kg (190 lb) 11/26/2023 2:39 PM EDT Height 152.4 cm (5') 11/26/2023 2:39 PM EDT Body Mass Index 37.11 11/26/2023 2:39 PM EDT Plan of Treatment Health Maintenance Due Date Last Done Comments Wellness Exam Medicare 1945 Zoster (1 of 2) 1992 Bone Density Screening 2007 RSV or 60+ (1 - 1-dose 75+ series) 2017 COVID-19 Vaccine ( - 2023-2 5 season) 2024 10/12/2020, 09/14/2020 Influenza Vaccine (#1) 2025 4, 05/11/2013, 08/11/2012 DTaP/TDaP/Td (2 - Td or Tdap) 09/04/2033 09/04/2023 Pneumococcal Vaccine 50+ Completed 018, 08/11/2012, 08/11/2010 Hepatitis B Vaccine Aged Out No longe r eligible based on patient's age to complete this topic Meningococcal B Vaccine Aged Out No l onger eligible based on patient's age to complete this topic Insurance [place] [address] [facility] [place]
--- OUTSIDE RECORDS SUMMARY | 2025-02-18 10:41 | XMS_ITS | Encounter Summary ---
Author Organization [employer] ([place], [place], [place], [place]) Address [address] [place] [address] Care Team Providers Care Certified Legal Secretary Specialist Name Role Phone Alfred Cantu MD Primary Care Provider [phone] Lyndsey Key MD Unavailable [phone] Vik Corcoran MD Unavailable Encounter Details Date Type Department Care Team (Late st Contact Info) Description 10/28/2018 Transcribed Document [facility] [place] [facility] [place] [address] ProviderRashard MD [address] [place] [id number] Social History Tobacco Use Types Packs/Day Years Used Date Smoking Tobacco: Never Assessed Comments Unknown Sex and Gender Information Value Date Recorded Sex Assigned at Not on file Legal Sex Female 1:15 PM CDT Gender Identity Not on file Sexual Orientation Not on file documented as of this encounter Miscellaneous Notes * Cerner Conversion Note - Rashard ProviderMD - 10/28/2018 2:00 AM CDT Tomographic Tech Details Entered On: 10/28/2018 2:08 EDT Performed On: 10/28/2018 2:00 EDT by Alba Smallwood Rn Order Details Transport Mode Order Detail : Bed (including specialty) Isolation Precautions Order Detail : Contact precautions, Droplet precautions Order Detail : N/A IV Order Detail : 1 Oxygen Order Detail : 1 Nurse Collect Order Detail : 0 Lift/Transfer : Moderate assist Central Line Order Detail : No Room Service : Not Appropriate Arterial Line : No Alba Smallwood Rn - 10/28/2018 2:08 EDT Electronically signed by Kavita [facility] Conversion Cake Washer Cerner at 11/28/2022 5:36 PM CDT documented in this encounter Plan of Treatment Upcoming Encounters Date Type Department Care Team (Late st Contact Info) Description 08/23/2025 12:45 PM EST Office Visit [facility] Electrophysiology [address] [place] [address] Vik Corcoran MD [address] [place] [address] [address] [place] [id number] documented as of this encounter Visit Diagnoses Not on filedocumented in this encounter Care Teams Certified Legal Secretary Specialist Relationship Specialty Start Date End Date Alfred Cantu MD [address] [place] [address] PCP - General General Internal Medicine 08/29/22 Lyndsey Key MD [address] [place] [address] [address] Editor At Large Interventional Cardiology 08/29/22 Vik Corcoran MD [address] [place] [address] [id number] Editor At Large Electrophysiology 05/19/24 documented as of this encounter
--- OUTSIDE RECORDS SUMMARY | 2025-02-18 10:41 | XMS_ITS | Encounter Summary ---
Author Organization [employer] ([place], [place], [place], [place]) Address [address] [place] [address] Care Team Providers Care Forming Machine Upkeep Mechanic Name Role Phone Alfred Cantu MD Primary Care Provider [phone] Lyndsey Key MD Unavailable Vik Corcoran MD Unavailable Encounter Details Date Type Department Care Team (Late st Contact Info) Description 10/28/2018 Transcribed Document [facility] [place] [facility] [place] [address] ProviderRashard MD [address] [place] [address] Social History Tobacco Use Types Packs/Day Years Used Date Smoking Tobacco: Never Assessed Comments Unknown Sex and Gender Information Value Date Recorded Sex Assigned at Not on file Legal Sex Female 1:15 PM CDT Gender Identity Not on file Sexual Orientation Not on file documented as of this encounter Miscellaneous Notes * Cerner Conversion Note - Rashard ProviderMD - 10/28/2018 9:09 AM CDT Patient: KATHY CARTER Age: 78 Years Sex: Female : 1940 Subjective Chief Complaint: Sitting up in recliner; no complaints Physical Exam (1, 6, 12) NAD No JVD Oropharynx moist Decreased BS over bases Regular, nl S1, S2, 3/6 HSM +BS,soft trace edema Superficial incision dressing CDI, no drainage. Vitals & Measurements T: 36.7 ??C TMIN: 36.6 ??C TMAX: 36.9 ??C HR: 61(Monitored) RR: 20 BP: 141/90 SpO2: 87% WT: 82.84 kg Intake & Output Input Total: 1025 mL Output Total: 1550 mL Balance: -525 mL Assessment/Plan 1. Severe NICM, LVEF = 25% 2. Acute systolic heart failure 3. Severe MR 4. Acute PNA; on IV antibiotics PLAN: 10/28/18 Left BIV-ICD incision with dressing clean, no oozing noted. Leukocytosis worsening; AUGUST concern for PNA vs poss. AICD infection? ID consulted CT chest pending. Follow up in clinic in 2 wks for wound check; device interrogation. 10/27/18 Left BIV-ICD incision with [...] pneumothorax, increased vascular congestion One dose of vanco this am Bumex 1 mg PO BID Left arm sling DC instructions explained. No Heparin in any form for 24 hours. Medications Inpatient acetaminophen, 325 mg= 1 Tab, Oral, Q6H, PRN aspirin, 81 mg= 1 Tab, Oral, Daily Bumex, 1 mg= 1 Tab, Oral, Daily calcium gluconate calcium gluconate calcium gluconate Coreg, 12.5 mg= 1 Tab, Oral, BID Desenex AF 2% topical powder, 1 Application, Topical, TID diazePAM, 5 mg= 1 Tab, Oral, BID, PRN DuoNeb 0.5 mg-2.5 mg/3 mL inhalation solution, 3 mL, Nebulized Inhalation , RT_Q6H, PRN DuoNeb 0.5 mg-2.5 mg/3 mL inhalation solution, 3 mL, Nebulized Inhalation , RT_Q6H heparin, 5000 Units= 1 mL, SubCutaneous, Q8HInt magnesium sulfate, 2 Gram= 50 mL, IV Piggyback, Q2H, PRN magnesium sulfate, 2 Gram= 50 mL, IV Piggyback, Daily, PRN Mucinex, 1200 mg= 2 Tab, Oral, BID nystatin, [id number] Units= 10 mL, Swish and Swallow , [...] mEq= 15 mL, Feeding Tube, Q2H, PRN predniSONE, 20 mg= 1 Tab, Oral, Daily Pulmicort Respules, 0.5 mg= 2 mL, Nebulized Inhalation , BID sodium phosphate sodium phosphate Tessalon, 100 mg= 1 Cap, Oral, TID, PRN Home Advair Diskus 250 mcg-50 mcg [...] oral tablet, 500 mg= 1 Tab, Oral, [id number] Mucinex 600 mg oral tablet, extended release, 1200 mg= 2 Tab, Oral, BID omeprazole 20 mg oral delayed release capsule, 40 mg= 2 Cap, Oral, Daily ProAir HFA 90 mcg/inh inhalation aerosol, 2 Puff, Inhalation, QID, PRN Singulair 10 mg oral tablet, 10 mg= 1 Tab, Oral, Daily Lab Results OCT 28 04:36 L 128 L 92 H 48 / 93 5.1 31 1.00 \ OCT 13 05:27 \ 11.7 / H 14.6 225 / 36.4 \ Diagnostic Results EKG TELE: 61 bpm, NSR Electronically signed by Interface, [facility] Conversion Reagent Tender Cerner at 11/28/2022 5:29 PM CDT documented in this encounter Plan of Treatment Upcoming Encounters Date Type Department Care Team (Late st Contact Info) Description 08/23/2025 12:45 PM EST Office Visit [facility] Electrophysiology [address] [place] [phone] Vik Corcoran MD [address] [place] [address] [address] documented as of this encounter Visit Diagnoses Not on filedocumented in this encounter Care Teams Forming Machine Upkeep Mechanic Relationship Specialty Start Date End Date Alfred Cantu MD [address] [place] [address] PCP - General General Internal Medicine 08/29/22 Lyndsey Key MD [address] [place] [address] [address] Material Flow Analyst Interventional Cardiology 08/29/22 Vik Corcoran MD [address] [place] [address] [address] Material Flow Analyst Electrophysiology 05/19/24 documented as of this encounter
--- OUTSIDE RECORDS SUMMARY | 2025-02-18 10:41 | XMS_ITS | Encounter Summary ---
Author Organization [employer] ([place], [place], [place], [place]) Address [address] [place] [address] Care Team Providers Care Printing Bindery Assistant Name Role Phone Alfred Cantu MD Primary Care Provider [phone] Lyndsey Key MD Unavailable [phone] Vik Corcoran MD Unavailable Encounter Details Date Type Department Care Team (Late st Contact Info) Description 10/31/2018 Transcribed Document [facility] [place] Family Medicine [facility] [place] [address] ProviderRashard MD [address] [place] [address] Social History Tobacco Use Types Packs/Day Years Used Date Smoking Tobacco: Never Assessed Comments Unknown Sex and Gender Information Value Date Recorded Sex Assigned at Not on file Legal Sex Female 1:15 PM CDT Gender Identity Not on file Sexual Orientation Not on file documented as of this encounter Miscellaneous Notes * Cerner Conversion Note - Rashard ProviderMD - 10/31/2018 11:54 AM CDT Patient: KATHY CARTER Age: 78 Years Sex: Female : 1940 Subjective Chief Complaint: Feels a bit better Receiving neb treatment Physical Exam (1, 6, 12) NAD, family at bedside No JVD Oropharynx moist Decreased BS over bases, mild wheezing irregular, nl S1, S2, 3/6 HSM +BS,soft no edema Vitals & Measurements T: 36.3 ??C TMIN: 36.3 ??C TMAX: 36.4 ??C HR: 84(Monitored) RR: 18 BP: 107/71 SpO2: 95% Intake & Output Intake & Output Totals Last 24 Hours (7a-7a) Intake (26 Events) Continuous Infusions (784.9952 mL) Oral Fluids (925 mL) Oral Intake (600 mL) Output (6 Events) Urine Voided (Volume) (2200 mL) Input Total: 2309.9952 mL Output Total: 2200 mL Balance: 109.9952 mL Assessment/Plan 1. 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 Acute systolic heart failure 3. Severe MR 4. Acute pneumonia,on IV antibiotics 5. Severe Leukocytosis 6. Severe hyponatremia 10/31/2018 Start amiodarone 400 mg BID, DC [...] 325 mg= 1 Tab, Oral, Q6H, PRN amiodarone injection 450 mg + Dextrose 5% in Water intravenous solution 250 mL aspirin, 81 mg= 1 Tab, Oral, Daily [...] RT_Q6H Eliquis, 5 mg= 1 Tab, Oral, [id number] magnesium sulfate, 2 Gram= 50 mL, IV Piggyback, Q2H, PRN magnesium sulfate, 2 Gram= 50 mL, IV Piggyback, Daily, PRN Mucinex, 1200 mg= 2 Tab, Oral, BID Normal Saline 500 mL, 500 mL, IntraVENous nystatin, [id number] Units= 10 mL, Swish and Swallow , [...] oral tablet, 500 mg= 1 Tab, Oral, [id number] Mucinex 600 mg oral tablet, extended release, 1200 mg= 2 Tab, Oral, BID omeprazole 20 mg oral delayed release capsule, 40 mg= 2 Cap, Oral, Daily ProAir HFA 90 mcg/inh inhalation aerosol, 2 Puff, Inhalation, QID, PRN Singulair 10 mg oral tablet, 10 mg= 1 Tab, Oral, Daily Lab Results OCT 30 04:59 L 126 L 88 H 44 / 91 4.6 30 H 1.20 \ OCT 29 04:33 \ 12.2 / C 39.7 174 / 36.9 \ documented in this encounter Plan of Treatment Upcoming Encounters Date Type Department Care Team (Late st Contact Info) Description 08/23/2025 12:45 PM EST Office Visit [facility] Electrophysiology [address] [place] [phone] Vik Corcoran MD [address] [place] [address] [address] [place] [address] documented as of this encounter Visit Diagnoses Not on filedocumented in this encounter Care Teams Printing Bindery Assistant Relationship Specialty Start Date End Date Alfred Cantu MD [address] [place] [address] PCP - General General Internal Medicine 08/29/22 [place] [address] [place] [address] [address] Retail Cashier Associate Interventional Cardiology 08/29/22 Vik Corcoran MD [address] [place] [address] [id number] Retail Cashier Associate Electrophysiology 05/19/24 documented as of this encounter
--- OUTSIDE RECORDS SUMMARY | 2025-02-18 10:41 | XMS_ITS | Encounter Summary ---
Author Organization [employer] ([place], [place], [place], [place]) Address [address] [place] [address] Care Team Providers Care Unit Operator Name Role Phone Alfred Cantu MD Primary Care Provider [phone] Lyndsey Key MD Unavailable Vik Corcoran MD Unavailable Encounter Details Date Type Department Care Team (Late st Contact Info) Description 10/28/2018 Transcribed Document [facility] [place] [facility] [place] [address] ProviderRashard MD [address] [place] [address] Social History Tobacco Use Types Packs/Day Years Used Date Smoking Tobacco: Never Assessed Comments Unknown Sex and Gender Information Value Date Recorded Sex Assigned at Not on file Legal Sex Female 1:15 PM CDT Gender Identity Not on file Sexual Orientation Not on file documented as of this encounter Miscellaneous Notes * Cerner Conversion Note - Rashard ProviderMD - 10/28/2018 10:08 AM CDT Patient: KATHY CARTER Age: 78 years Sex: Female : 1940 Associated Diagnoses: None Author: CLARE LIVINGSTON MD-INF History of Present Illness 10/28/18 - Initial hospital visit for this very pleasant 78 yr old with CC high WBC has hx of CM Recently admitted to [facility] for 3 days - then sent here had PPM placed here Found to have RSV pneumonia Was treated with antibiotics, then steroids, on taper co cough no fever or chills now co pain at PPM site Review of Systems Constitutional: Fever, Chills, Sweats, [...] Documented Current medications: (Selected) Inpatient Medications Ordered Bumex: 1 mg, Oral, Daily Core.5 mg, Oral, BID Desenex AF 2% topical powder: 1 Application, Topical, TID DuoNeb 0.5 mg-2.5 mg/3 mL inhalation solution: 3 mL, Nebulized Inhalation, RT_Q6H DuoNeb 0.5 mg-2.5 mg/3 mL inhalation solution: 3 mL, Nebulized Inhalation, RT_Q6H, PRN: Cough Mucinex: 1,200 mg, Oral, BID Pulmicort Respules: 0.5 mg, Nebulized Inhalation, BID Tessalon: 100 mg, Oral, TID, PRN: Cough acetaminophen: 325 mg, Oral, Q6H, PRN: Pain (Mild 1-3) aspirin: 81 mg, Oral, Daily calcium gluconate: 1 Gram, 10 mL, 60 mL/Hr, IV Piggyback, Daily, PRN: Other (See Comment) calcium gluconate: 2 Gram, 20 mL, 120 mL/Hr, IV Piggyback, Daily, PRN: Other (See Comment) calcium gluconate: 2 Gram, 20 mL, 120 mL/Hr, IV Piggyback, Q12H, PRN: Other (See Comment) diazePAM: 5 mg, Oral, BID, PRN: Anxiety heparin: 5,000 Units, SubCutaneous, Q8HInt magnesium sulfate: 2 Gram, 50 mL, 25 [...] Feeding Tube, Q2H, PRN: Other (See Comment) predniSONE: 20 mg, Oral, Daily sodium phosphate: 15 mMole, 5 mL, 50 [...] 500 mg oral tablet: 1 Tab, Oral, [id number], for 7 Day(s), 7 Tab, 0 Refill(s) [...] 2 Cap, Oral, Daily, 0 Refill(s), Medications (28) Active Scheduled: (12) albuterol-ipratropium inh 3 mL 3 mL, Nebulized Inhalation, RT_Q6H aspirin 81 mg chew tab 81 mg 1 Tab, Oral, Daily budesonide 0.5 mg/2 mL inh susp 0.5 mg 2 mL, Nebulized Inhalation, BID bumetanide 1 mg tab 1 mg 1 Tab, Oral, Daily carvedilol 12.5 mg tab 12.5 mg 1 Tab, Oral, BID guaiFENesin 600 mg ER tab 1,200 mg 2 Tab, Oral, BID heparin 5,000 units/1 mL inj 5,000 Units 1 mL, SubCutaneous, Q8HInt miconazole nitrate 2% pwd 45 g 1 Application, Topical, TID nySTATin 100,000 unit/mL susp 5 mL 1,000,000 Units 10 mL, Swish and Swallow, Q6H pantoprazole EC 40 mg tab 40 mg 1 Tab, Oral, Daily potassium chloride CR 10 mEq tab 40 mEq 4 Tab, Oral, Daily predniSONE 20 mg tab 20 mg 1 Tab, Oral, Daily Continuous: (0) PRN: (16) acetaminophen 325 mg tab 325 mg 1 [...] 2 Gram 50 mL, IV Piggyback, Q2H potassium chloride 10 mEq 50 mL, IV [...] History of obstructive sleep apnea / IMO [id number] / Confirmed, Active Problems (9) Allergic asthma Apnea, sleep Chronic GERD Dyspnea H/O hyperlipidemia H/O mitral valve insufficiency History of obstructive sleep apnea Hx of obesity Hypertension Histories Past Medical History: No active or resolved past medical history items have been selected or recorded. Family History: No family history items have been selected or recorded. Procedure history: CHOLECYSTECTOMY (70425). hysterectomy. sinus surgery. cataract surgery - bilateral. [...] (OCT 28 06:00) 97.8 (OCT 28 02:06) 98.5 (OCT 27 20:46) Mon HR 61 (OCT 28 08:43) 47 [...] (OCT 27 13:30) General: Alert and oriented, Mild distress. Eye: [...] and coherent. Psychiatric: Cooperative, Appropriate mood & affect. Review / Management Results review: Labs (Last four charted values) WBC C 34.7 (OCT 28) H 23.9 (OCT 27) H 18.9 (OCT 18) H 23.8 (OCT 17) HB 12.7 (OCT 28) 12.0 (OCT 27) 13.3 (OCT 18) 11.6 (OCT 17) HCT 38.6 (OCT 20) 36.7 (OCT 19) 43.7 (OCT 18) 35.2 (OCT 17) Plt 187 (OCT 20) 185 (OCT 19) 170 (MAR 18) 196 (OCT 17) Na L 128 (OCT 20) L 129 (OCT 19) L 129 (OCT 18) L 127 (OCT 17) K 5.1 (OCT 20) 4.3 (OCT 19) 4.6 (OCT 18) 4.8 (OCT 17) Cl L 92 (OCT 20) L 88 (OCT 19) L 95 (OCT 18) L 90 (OCT 17) CO2 31 (OCT 20) H 34 (OCT 19) 24 (OCT 18) 31 (OCT 17) BUN H 48 (OCT 20) H 42 (MAR 19) H 36 (OCT 26) H 36 (OCT 25) Cr 1.00 (OCT 28) H 1.10 (OCT 27) 1.00 (OCT 26) 1.00 (OCT 25) Glu R 93 (OCT 28) 104 (OCT 27) 105 (OCT 26) H 151 (OCT 25) Ca 9.4 (OCT 28) 9.0 (OCT 27) 8.9 (OCT 26) 8.6 (OCT 25) Lactic 0.8 (OCT 21) AST 18 (OCT [...] -- Sulfa allergy -- dysuria High WBC does not seem to be explained by current Prednisone dose Will check a UA and CT abdomen No atx Long discussion with pt Thanks for this consultation, will follow closely with you documented in this encounter Plan of Treatment Upcoming Encounters Date Type Department Care Team (Late st Contact Info) Description 08/23/2025 12:45 PM EST Office Visit [facility] Electrophysiology [address] [place] [address] Vik Corcoran MD [address] [facility] [address] [place] [address] documented as of this encounter Visit Diagnoses Not on filedocumented in this encounter Care Teams Unit Operator Relationship Specialty Start Date End Date Alfred Cantu MD [address] [place] [address] PCP - General General Internal Medicine 08/29/22 Lyndsey Key MD [address] [facility] [address] [place] [address] Billing Rep Interventional Cardiology 08/29/22 iVk Corcoran MD [address] [facility] [place] [address] Billing Rep Electrophysiology 05/19/24 documented as of this encounter
--- OUTSIDE RECORDS SUMMARY | 2025-02-18 10:41 | XMS_ITS | Encounter Summary ---
Author Organization [employer] ([place], [place], [place], [place]) Address [address] [place] [address] Care Team Providers Care Mixing Machine Attendant Name Role Phone Alfred Cantu MD Primary Care Provider [phone] Lyndsey Key MD Unavailable [phone] Vik Corcoran MD Unavailable Encounter Details Date Type Department Care Team (Late st Contact Info) Description 10/28/2018 Transcribed Document [facility] [place] Family Medicine [facility] [address] ProviderRashard MD [address] [place] [address] Social History Tobacco Use Types Packs/Day Years Used Date Smoking Tobacco: Never Assessed Comments Unknown Sex and Gender Information Value Date Recorded Sex Assigned at Not on file Legal Sex Female 1:15 PM CDT Gender Identity Not on file Sexual Orientation Not on file documented as of this encounter Miscellaneous Notes * Cerner Conversion Note - Rashard ProviderMD - 10/28/2018 3:52 PM CDT Care Management Assessment/Plan Entered On: 10/30/2018 11:33 EDT Performed On: 10/30/2018 11:28 EDT by REGINA TERRY Ed Special Education Teacher Care Management Note Anticipated Discharge Date : 10/23/2018 15:00 EDT Care Management Note : Continue to follow for discharge needs and arrangements, admission day #10, 2 liters/nebs, Xo=205, WBC=39.8, CT Abd/pelvis/chest=IMPRESSION: 5 mm nodule in the right mid lung. Right lower lobe consolidation and small right pleural effusion. Follow-up to complete resolution recommended. No nephrolithiasis or hydronephrosis; PO Doxy, PT/DU=166', Bi-V-ICD site CDI, confirmed with spouse, Braxton ([phone]) that plan at discharge remains to return home, HH in place via [facility], O2 for transport at bedside, via [facility] (at discharge will need new room air forwarded to provider @[phone]),BSC ordered via [facility] and they will contact patient's family about delivery to patient's home. CM will continue to follow. Care Management Note Report : LAURA YI Ed Special Education Teacher - 10/28/18 15:47:17 Covering today for D/C planning. Discussed pt w/ attending MD and bedside RN, and visited w/ pt and spouse. Pt was not able to D/C yesterday due to BP issues, can't go today due to increased WBC. Explained to pt and spouse. They expressed understanding and request BSC for home use. CM will cont to follow. REGINA TERRY Social Worker - 10/27/18 17:27:13 Continue to follow for discharge needs and arrangements, chart reviewed, admission day #7, on 2 liters O2 REGINA TERRY Social Worker - 10/27/18 17:50:49 Continue to follow for discharge needs and arrangements, chart reviewed, admission day #7, on 2 liters O2, room air=88%; plan is for patient to discharge home with spouse, Braxton ([phone]) who will transport and assist as needed. Orders received for home health and for home oxygen, d/w spouse providers, [facility] and [facility] chosen, referrals made, and portable O2 to be delivered to patient's room prior to discharge and HH to follow up to begin POC upon discharge. CM will continue to follow until discharge to finalize transfer arrangements. REGINA TERRY Social Worker - 10/26/18 17:32:42 Continue to follow for discharge needs and arrangements, chart reviewed, admission day #6, on 2 liters O2/nebs, Jl=148, Cl=95, WBC=18.9, CXR=FINDINGS: The heart is stable in size. The lung rosario demonstrate no significant change in the right base atelectasis. There is no pneumothorax. The support devices are in good position. IMPRESSION: There has been no significant interval change; PT/JV=016' with rwx, PO Prednison, EP completed wound check today on Bi-V-ICD site, plan at discharge (possible Friday10/27/18) is to return home with spouse, Braxton, who will transport and assist with care. HH choice at discharge is [facility], once HH orders for RN/PT/OT in place will make referral and finalize arrangements. Will also watch for patient's room air level on day of discharge in case home oxygen is needed. Will continue to follow. REGINA TERRY, Ed Special Education Teacher - 10/23/18 17:17:58 Continue to follow for discharge needs and arrangements, chart reviewed, admission day #3, transfer from SICU, currently on 2 liters O2/nebs, Cj=790, Cl=88, Mg=2.5, WBC=18.3, CXR=pending, on IV Solumedrol q6, PT/OT-will need reeval orders due to recent procedure, patient underwent a Bi-V-ICD placement today. Plan at discharge remains to return home with family support (+/- Home Health). CM will continue to follow. CONNIE LIVE RN-Systems Design Engineer - 10/22/18 13:28:57 improving chf. severe mitral regurg. nicm bipap/02 3L nc. zithromax. lasix iv q 8 hr. PT/OT consults. biv icd tomorrow. CONNIE LIVE RN-Systems Design Engineer - 10/21/18 13:09:33 readmit risk: moderate 57. transfer from [facility]. acute excerbation systolic heart failure. ef 25-30%. severe mitral regurg. severe nicm. CAP. for biv icd today. bipap 50%/02 4-6L nc. zithromax po. zosyn iv. ca gluconate iv x 2. kcl 20meq x 1. na phos iv x 1. PT consult. spoke with Ms. Jimenez. explained role of case management. pt resides in [facility]. she is adl independent. drives car. has cane, walker & cpap provided by [facility]. no current home health or previous rehab stays. discussed dc planning rehab vs home health depending on progress. pt has medicare primary. she advises she has [employer] 2nd insurance. notified annelise Alfred advocate for inclusion in records. spoke with bedside RNMagda. Documentation Status Complete : Yes REGINA TERRY Ed Special Education Teacher - 10/30/2018 11:28 EDT Discharge Planning Details Discharge Home : Home, Home health (related) Home Caregiver Name/Relationship : Braxton Jimenez spouse [phone] Discharge Home Care Needs : Occupational therapy, Physical Therapy, custodial care Discharge Placement Needs : Home Persons Assisting Patient at Home : Spouse Transportation Needs : Car REGINA TERRY Ed Special Education Teacher - 10/30/2018 11:28 EDT Info/List/Choices Provided Patient Offered Choice/Affiliations Explained : Yes List/Info Provided Pt/Fam/Support Person : Durable medical equipment, Home health Important Medicare Message Reviewed With : Spouse Important Medicare Message Reviewed D/T : 10/26/2018 16:30 EDT Patient/Family Notified of Plan : Yes Patient/Family Notified : Braxton Jimenez spouse [phone] REGINA TERRY Ed Special Education Teacher - 10/30/2018 11:28 EDT Electronically signed by Kavita [facility] Conversion Wood Casket Maker Cerner at 11/28/2022 5:46 PM CDT documented in this encounter Plan of Treatment Upcoming Encounters Date Type Department Care Team (Late st Contact Info) Description 08/23/2025 12:45 PM EST Office Visit [facility] Electrophysiology [address] [place] [address] Vik Corcoran MD [address] [facility] [address] [place] [address] documented as of this encounter Visit Diagnoses Not on filedocumented in this encounter Care Teams Mixing Machine Attendant Relationship Specialty Start Date End Date Alfred Cantu MD [address] [place] [address] PCP - General General Internal Medicine 08/29/22 Lyndsey Key MD [address] [facility] [address] [address] Laboratory Courier Interventional Cardiology 08/29/22 Vik Corcoran MD [address] [facility] [address] [address] Laboratory Courier Electrophysiology 05/19/24 documented as of this encounter
--- NOTE | 2025-02-18 10:42 | XR_ITS ---
FINAL REPORT CLINICAL HISTORY: Laceration over patella COMPARISON: 06/23/2023 FINDINGS: Two views of the left knee were obtained. There is no acute fracture or dislocation. The joint spaces are intact. There is a soft tissue defect overlying the upper patella extending to the depth of the bone. No radiopaque foreign body identified. IMPRESSION: No acute fracture or foreign body.. Reviewed, Interpreted and Dictated by Gerald Oreilly MD Transcribed by Margaret Sheridan Authenticated and [facility]
--- OUTSIDE RECORDS SUMMARY | 2025-02-18 10:42 | XMS_ITS | Encounter Summary ---
Author Organization [employer] ([place], [place], [place], [place]) Address [address] [place] [address] Care Team Providers Care Supervisor Litharge Name Role Phone Alfred Cantu MD Primary Care Provider [phone] Lyndsey Key MD Unavailable [phone] Vik Corcoran MD Unavailable Encounter Details Date Type Department Care Team (Late st Contact Info) Description 10/26/2018 Transcribed Document [facility] [place] [facility] [place] [address] ProviderRashard MD [address] [place] [address] Social History Tobacco Use Types Packs/Day Years Used Date Smoking Tobacco: Never Assessed Comments Unknown Sex and Gender Information Value Date Recorded Sex Assigned at Not on file Legal Sex Female 1:15 PM CDT Gender Identity Not on file Sexual Orientation Not on file documented as of this encounter Miscellaneous Notes * Cerner Conversion Note - Rashard ProviderMD - 10/26/2018 2:00 AM CDT Stratigrapher Details Entered On: 10/26/2018 3:49 EDT Performed On: 10/26/2018 2:00 EDT by YASHIRA CABRAL RN Order Details Transport Mode Order Detail : Bed (including specialty) Isolation Precautions Order Detail : Contact precautions, Droplet precautions Order Detail : N/A IV Order Detail : 1 Oxygen Order Detail : 1 Nurse Collect Order Detail : 0 Lift/Transfer : Moderate assist Central Line Order Detail : No Room Service : Not Appropriate Arterial Line : No YASHIRA CABRAL RN - 10/26/2018 3:49 EDT Electronically signed by [facility], [facility] Conversion Staff Educator Cerner at 11/28/2022 5:41 PM CDT documented in this encounter Plan of Treatment Upcoming Encounters Date Type Department Care Team (Late st Contact Info) Description 08/23/2025 12:45 PM EST [facility] Electrophysiology [address] [place] [address] Vik Corcoran MD [address] [place] [address] [address] [place] [address] documented as of this encounter Visit Diagnoses Not on filedocumented in this encounter Care Teams Supervisor Litharge Relationship Specialty Start Date End Date Alfred Cantu MD [address] [place] [address] PCP - General General Internal Medicine 08/29/22 Lyndsey Key MD [address] [place] [address] [address] [place] Interventional Cardiology 08/29/22 Vik Corcoran MD [address] [place] [address] [address] [place] Electrophysiology 05/19/24 documented as of this encounter
--- OUTSIDE RECORDS SUMMARY | 2025-02-18 10:42 | XMS_ITS | Encounter Summary ---
Author Organization [employer] ([place], [place], [place], [place]) Address [address] [place] [address] Care Team Providers Care Hot Plate Press Operator Name Role Phone Alfred Cantu MD Primary Care Provider [phone] Lyndsey Key MD Unavailable [phone] Vki Corcoran MD Unavailable Encounter Details Date Type Department Care Team (Late st Contact Info) Description 10/23/2018 Transcribed Document [facility] [place] [facility] [place] [address] ProviderRashard MD [address] [place] [address] Social History Tobacco Use Types Packs/Day Years Used Date Smoking Tobacco: Never Assessed Comments Unknown Sex and Gender Information Value Date Recorded Sex Assigned at Not on file Legal Sex Female 1:15 PM CDT Gender Identity Not on file Sexual Orientation Not on file documented as of this encounter Miscellaneous Notes * Cerner Conversion Note - Rashard ProviderMD - 10/23/2018 3:00 PM CDT Patient: KATHY CARTER Age: 78 years Sex: Female : 1940 Associated Diagnoses: None Author: LIZZ ZIMMERMAN DO Subjective Ms. Carter was seen by me this morning, she is sitting on bedside commode, she tells me that hse really wanted to get out of bed today. she thinks that her breathing has improved today. still coughing and not able toget anything up , no chest pain or abd pain, no n/v. Objective Intake and Output Intake & Output Totals Last 24 Hours (7a-7a) Intake (7 Events) Medications (176.89 mL) Output (3 Events) Urine Voided (Volume) (1300 mL) Input Total: 176.89 mL Output Total: 1300 mL Balance: -1123.11 mL VS/Measurements Vitals Signs (last 24 hrs) Last Charted Minimum Maximum Temp 98.4 (OCT 23 10:28) 96.9 (OCT 23 03:16) 99.2 (OCT 22 20:24) Mon HR 84 (OCT 23 10:28) 71 (OCT 23 03:16) 164 (OCT 22 20:07) Resp Rate 20 (OCT 23 10:28) 18 (OCT 23 09:18) H 57 (OCT 22 18:00) SBP H 145 (OCT 23:28) 107 (OCT 23 03:16) H 148 (OCT 22 19:00) DBP H 96 (OCT 23 10:28) 62 (OCT 22 20:00) H 96 (OCT 23 10:28) MAP 112 (OCT 23 10:28) 75 (OCT 23 03:16) 112 (OCT 23 10:28) SpO2 98 (OCT 23 04:03) L 92 (OCT 22 19:00) 99 (OCT 22 17:00) General: Alert and oriented, No acute distress. Eye: Pupils are equal, round and reactive to light, Normal conjunctiva. HENT: Normocephalic, Normal hearing, tongue is moist with no obvious thrush seen. . Respiratory: on NC, occasional wheezing, no rhonchi. Cardiovascular: Normal rate, Regular rhythm, No murmur, trace LE edema. Gastrointestinal: Soft, Non-tender, Non-distended, Normal bowel sounds. Integumentary: Warm, Dry. Neurologic: Alert, Oriented. Psychiatric: Cooperative, Appropriate mood & affect. Results Review General results Interpretation: OCT 23 03:05 L 125 L 88 21 / H 147 4.4 28 0.90 \ OCT 23 03:05 \ 12.4 / H 18.3 225 / 37.9 \ Labs (Last four charted values) WBC H 18.3 (OCT 23) H 14.8 (OCT 22) H 14.6 (OCT 21) HB 12.4 (OCT 23) L 11.1 (OCT 14) 11.7 (OCT 21) HCT 37.9 (OCT 15) L 33.4 (OCT 14) 36.4 (OCT 21) Plt 225 (OCT 23) 221 (OCT 14) 239 (OCT 21) 225 (OCT 21) Na L 125 (OCT 23) L 127 (OCT 14) L 125 (OCT 21) L 128 (OCT 21) K 4.4 (OCT 23) L 3.1 (OCT 22) 3.9 (OCT 21) L 3.3 (OCT 21) Cl L 88 (OCT 23) L 87 (OCT 22) L 86 (OCT 21) L 89 (OCT 21) CO2 28 (OCT 23) 32 (OCT 14) 32 (OCT 21) 31 (OCT 21) BUN 21 (OCT 23) 18 (OCT 22) 13 (OCT 21) 12 (OCT 21) Cr 0.90 (OCT 23) 0.90 (OCT 14) 1.00 (OCT 21) 0.80 (OCT 21) Glu R H 147 (OCT 23) 91 (OCT 14) H 111 (OCT 21) 90 (OCT 21) Ca 8.7 (OCT 23) 8.4 (OCT 22) 8.5 (OCT 21) L 8.3 (OCT 21) Lactic 0.8 (OCT 21) AST 18 (OCT 21) ALT 27 (OCT 21) ALK P 66 (OCT 21) T Bili 0.8 (OCT 21) PTN L 6.2 (OCT 21) ALB L 3.0 (OCT 21) Troponin H 0.079 (OCT 21) No Radiology Results Found 10/21/18 echo: Normal sized left ventricle. Mild left ventricular hypertrophy. Visually estimated ejection fraction 15-20%. Severe left ventricular systolic dysfunction. Septal motion c/w conduction abnormality. No masses or thrombi are seen. Trace pericardial effusion. Impression and Plan acute systolic chf - duration unknown - Echo showing ef of 15% - EP consult for Bi-V implant, on 10/23 - continue iv lasix - monitor I&O and daily weights - cxr showing no significant edema - continue spironolactone,valsartan, coreg, aspirin RSV bronchitis- improving - solumedrol started on 10/22 - continue nebs and mucinex severe mitral regurgitation - cardiology consult community acquired pna - pt had been on antibiotics for a few days prior to admission - zosyn stopped, procal nml - will complete azithromycin today. vaginal yeast infection -diflucan x 1 on 10/22 thrush - nystatin swish and swallow history of asthma - prn nebs - add mucinex hyponatremia, poa - improved today - mointor closely with diuresis anxiety - continue home prn valium hypokalemia - replete hypomag - replete d/w rn time spent: 32 min discharge goals: improve sob, bi-V today, hopefully dc in ~2 days no family present Lizz KOCH Hospitalist pager- [phone] Electronically signed by [facility], [facility] Conversion Truck Safety Inspector Cerner at 11/28/2022 5:36 PM CDT documented in this encounter Plan of Treatment Upcoming Encounters Date Type Department Care Team (Late st Contact Info) Description 08/23/2025 12:45 PM EST Office Visit [facility] Electrophysiology [address] [place] [address] [place] [address] [place] [address] [address] [place], [place] [id number] documented as of this encounter Visit Diagnoses Not on filedocumented in this encounter Care Teams Hot Plate Press Operator Relationship Specialty Start Date End Date Alfred Cantu MD [address] [place] [address] PCP - General General Internal Medicine 08/29/22 [place] [address] [place] [address] [address] [place] [address] Senior Telecommunications Consultant Interventional Cardiology 08/29/22 [place] [address] [place] [address] [address] [place] [address] Senior Telecommunications Consultant Electrophysiology 05/19/24 documented as of this encounter
--- OUTSIDE RECORDS SUMMARY | 2025-02-18 10:42 | XMS_ITS | Encounter Summary ---
Author Organization [employer] ([place], [place], [place], [place]) Address [address] [place] [address] Care Team Providers Care Vehicle Maintenance Technician Name Role Phone Alfred Cantu MD Primary Care Provider [phone] Lyndsey Key MD Unavailable [phone] Vik Corcoran MD Unavailable Encounter Details Date Type Department Care Team (Late st Contact Info) Description 10/02/2021 Transcribed Document [facility] [address] [place] [address] ProviderRashard MD [address] [place] [address] Social History Tobacco Use Types Packs/Day Years Used Date Smoking Tobacco: Never Assessed Family and Community Support Answer Sebastian e Recorded Help with Day to Day Activities Not on file 08/29/2023 Feeling Lonely or Isolated Not on file 08/29 Educational Attainment Answer Date Ezra rded Speak language other than Ivorian at home Not on file 08/29/2023 Want [...] Cerner Conversion Note - Historical ProviderMD - 10/02/2021 8:36 AM DRY JANITOR Nursing Discharge Summary Entered On: 10/02/2021 8:37 EST Performed On: 10/02/2021 8:36 EST by MAGDY DARLING RN Discharge Documentation Discharge Date/Time : 10/02/2021 12:20 EST Transporter Signature : MAGDY DARLING, RN MAGDY DARLING RN - 10/02/2021 12:17 EST Patient Disposition, General : Discharge Discharge To : Home with ambulatory/outpatient follow-up Accompanied By, Discharge : Spouse IV Discontinued : Yes Personal Belongings With Patient : Yes Pt's Own Supply of Medications Returned : No patient supply of medications to return Prescriptions Given to Patient : No Medications Given to Patient : No Discharge Instructions Reviewed With, Opportunity For Questions Given : Patient, Spouse Patient Education Completed : Yes Teaching Method : Explanation, Printed materials Teaching Evaluation : Returns demonstration, Verbalizes understanding MAGDY DARLING RN - 10/02/2021 8:36 EST Electronically signed by [facility], [facility] Conversion Heat Treating Bluer Cerner at 11/29/2022 12:41 PM CDT documented in this encounter Plan of Treatment Upcoming Encounters Date Type Department Care Team (Late st Contact Info) Description 08/23/2025 12:45 PM EST Office Visit [facility] Electrophysiology [address] [place] [phone] Vik Corcoran MD [address] [place] [address] [address] documented as of this encounter Visit Diagnoses Not on filedocumented in this encounter Care Teams Vehicle Maintenance Technician Relationship Specialty Start Date End Date Alfred Cantu MD [address] [place] [address] PCP - General General Internal Medicine 08/29/22 [place] [address] [place] [address] [phone] Turret Press Operator Interventional Cardiology 08/29/22 Vik Corcoran MD [address] [place] [address] [address] Turret Press Operator Electrophysiology 05/19/24 documented as of this encounter
--- OUTSIDE RECORDS SUMMARY | 2025-02-18 10:42 | XMS_ITS | Encounter Summary ---
Author Organization [employer] ([place], [place], [place], [place]) Address [address] [place] [address] Care Team Providers Care Supervisor Beehive Kiln Name Role Phone Alfred Cantu MD Primary Care Provider [phone] Lyndsey Key MD Unavailable [phone] Vik Corcoran MD Unavailable Encounter Details Date Type Department Care Team (Late st Contact Info) Description 10/30/2018 Transcribed Document [facility] [place] [facility] [place] [address] ProviderRashard MD [address] [place] [address] Social History Tobacco Use Types Packs/Day Years Used Date Smoking Tobacco: Never Assessed Comments Unknown Sex and Gender Information Value Date Recorded Sex Assigned at Not on file Legal Sex Female 1:15 PM CDT Gender Identity Not on file Sexual Orientation Not on file documented as of this encounter Miscellaneous Notes * Cerner Conversion Note - Rashard ProviderMD - 10/30/2018 2:00 AM CDT Safety Assistant Details Entered On: 10/30/2018 2:48 EDT Performed On: 10/30/2018 2:00 EDT by Ivet Smith RN Order Details Transport Mode Order Detail : Wheelchair Isolation Precautions Order Detail : Droplet precautions Order Detail : N/A IV Order Detail : 1 Oxygen Order Detail : 1 Nurse Collect Order Detail : 0 Lift/Transfer : Minimal Central Line Order Detail : No Room Service : Appropriate Arterial Line : No Ivet Smith RN - 10/30/2018 2:48 EDT Electronically signed by Kavita, [facility] Conversion Shoulder Joiner Cerner at 11/28/2022 5:38 PM CDT documented in this encounter Plan of Treatment Upcoming Encounters Date Type Department Care Team (Late st Contact Info) Description 08/23/2025 12:45 PM EST Office Visit [facility] Electrophysiology [address] [place] [phone] Vik Corcoran MD [address] [place] [address] [address] [place], [place] [phone] documented as of this encounter Visit Diagnoses Not on filedocumented in this encounter Care Teams Supervisor Beehive Kiln Relationship Specialty Start Date End Date Alfred Cantu MD [address] [place] [address] PCP - General General Internal Medicine 08/29/22 Lyndsey Key MD [address] [place] [address] [address] Seafood Manager Interventional Cardiology 08/29/22 Vik Corcoran MD [address] [place] [address] [phone] Seafood Manager Electrophysiology 05/19/24 documented as of this encounter
--- OUTSIDE RECORDS SUMMARY | 2025-02-18 10:42 | XMS_ITS | Encounter Summary ---
Author Organization [employer] ([place], [place], [place], [place]) Address [address] [place] [address] Care Team Providers Care Automotive Glazier Name Role Phone Alfred Cantu MD Primary Care Provider [phone] Lyndsey Key MD Unavailable [phone] Vik Corcoran MD Unavailable Encounter Details Date Type Department Care Team (Late st Contact Info) Description 10/27/2018 Transcribed Document [facility] [facility] [place] [address] ProviderRashard MD [address] [place] [address] Social History Tobacco Use Types Packs/Day Years Used Date Smoking Tobacco: Never Assessed Comments Unknown Sex and Gender Information Value Date Recorded Sex Assigned at Not on file Legal Sex Female 1:15 PM CDT Gender Identity Not on file Sexual Orientation Not on file documented as of this encounter Miscellaneous Notes * Cerner Conversion Note - Rashard ProviderMD - 10/27/2018 1:24 PM CDT Nursing Discharge Summary Entered On: 10/27/2018 13:26 EDT Performed On: 10/27/2018 13:24 EDT by OSEAS JIMENEZ, benzene still utility operator Documentation Discharge Date/Time : 11/02/2018 15:24 EDT OSEAS JIMENEZ, RN - 11/03/2018 9:26 EDT Patient Disposition, General : Discharge Discharge To : Home with ambulatory/outpatient follow-up Mode Of Departure, General Discharge : Private vehicle Accompanied By, Discharge : Spouse IV Discontinued : Yes Medications Given to Patient : No Personal Belongings With Patient : Yes Pt's Own Supply of Medications Returned : No Prescriptions Given to Patient : Yes Discharge Instructions Reviewed With, Opportunity For Questions Given : Patient, Spouse Patient Education Completed : Yes Number of Prescriptions Given : 5 Teaching Method : Explanation, Printed materials, Teach back method Teaching Evaluation : Verbalizes understanding Education Comment : Discharge Device Instructions provided to patient and discussed at DC as well as discussed with patient by Dr. Galeas's nurse. Verbalized understanding. Worker's Compensation Paperwork Completed : No OSEAS JIMENEZ, RN - 10/27/2018 13:24 EDT Electronically signed by [facility], [facility] Conversion Snow Fence Erector Cerner at 11/28/2022 5:34 PM CDT documented in this encounter Plan of Treatment Upcoming Encounters Date Type Department Care Team (Late st Contact Info) Description 08/23/2025 12:45 PM EST Office Visit [facility] Electrophysiology [address] [place] [phone] Vik Corcoran MD [address] [place] [address] [address] [place] [phone] documented as of this encounter Visit Diagnoses Not on filedocumented in this encounter Care Teams Automotive Glazier Relationship Specialty Start Date End Date Alfred Cantu MD [address] [place] [address] PCP - General General Internal Medicine 08/29/22 Lyndsey Key MD [address] [place] [address] [address] Blueprinting And Photocopy Supervisor Interventional Cardiology 08/29/22 Vik Corcoran MD [address] [place] [address] [phone] Blueprinting And Photocopy Supervisor Electrophysiology 05/19/24 documented as of this encounter
--- OUTSIDE RECORDS SUMMARY | 2025-02-18 10:42 | XMS_ITS | Encounter Summary ---
Author Organization [employer] ([place], [place], [place], [place]) Address [address] [place] [address] Care Team Providers Care Dehydrator Name Role Phone Alfred Cantu MD Primary Care Provider [phone] Lyndsey Key MD Unavailable [phone] Vik Corcoran MD Unavailable Encounter Details Date Type Department Care Team (Late st Contact Info) Description 10/24/2018 Transcribed Document [facility] [place] [facility] [place] [address] ProviderRashard MD [address] [place] [address] Social History Tobacco Use Types Packs/Day Years Used Date Smoking Tobacco: Never Assessed Comments Unknown Sex and Gender Information Value Date Recorded Sex Assigned at Not on file Legal Sex Female 1:15 PM CDT Gender Identity Not on file Sexual Orientation Not on file documented as of this encounter Miscellaneous Notes * Cerner Conversion Note - Rashard ProviderMD - 10/24/2018 2:53 PM CDT Patient: KATHY CARTER Age: 78 years Sex: Female : 1940 Associated Diagnoses: None Author: JOSE MEDRANO MD Subjective Ms. Carter was seen by me this morning, she was on the commode Reported and breathing is better , chest x-ray with the worsening vascular congestion, CA exam with[facility] bedside pacemaker doing okay mild to bleeding, Afebrile lost her had IV access Vitals stable No nausea no vomiting Good urine output Creatinine slightly up Sodium with the same DM about the same 128 Objective Intake and Output Intake & Output Totals Last 24 Hours (7a-7a) Intake (5 Events) Medications (500 mL) Oral Intake (120 mL) Output (6 Events) Urine Voided (Volume) (2550 mL) Input Total: 620 mL Output Total: 2550 mL Balance: -1930 mL VS/Measurements Vitals Signs (last 24 hrs) Last Charted Minimum Maximum Temp 97.3 (OCT 24 09:26) 97.3 (OCT 24 09:26) 98.7 (OCT 23 18:14) Mon HR 80 (OCT 24 10:31) 68 (OCT 24 01:34) 92 (OCT 23 21:01) Resp Rate 20 (OCT 24 12:33) 16 (OCT 23 21:01) 20 (OCT 23 18:14) SBP H 147 (OCT 24 09:26) 117 (OCT 24 04:50) H 151 (OCT 23 22:34) DBP 78 (OCT 24 09:26) 74 (OCT 24 04:50) H 94 (OCT 23 22:34) MAP 114 (OCT 24 09:26) 106 (OCT 23 21:01) 114 (OCT 24 09:26) SpO2 94 (OCT 24 10:17) 94 (OCT 24 10:17) 98 (OCT 23 21:01) General: Alert and oriented, No acute distress. [...] affect. Results Review General results Interpretation: OCT 24 03:27 L 127 L 87 H 35 / H 132 4.0 30 H 1.10 \ MAR 16 03:27 \ 11.6 / H 29.3 253 / 35.0 \ Labs (Last four charted values) WBC H 29.3 (OCT 16) H 18.3 (OCT 15) H 14.8 (OCT 14) H 14.6 (OCT 13) HB 11.6 (OCT 16) 12.4 (OCT 15) L 11.1 (OCT 14) 11.7 (OCT 13) HCT 35.0 (OCT 16) 37.9 (OCT 15) L 33.4 (OCT 14) 36.4 (OCT 13) Plt 253 (OCT 16) 225 (OCT 15) 221 (OCT 14) 239 (OCT 13) Na L 127 (OCT 16) L 125 (OCT 15) L 127 (OCT 14) L 125 (OCT 13) K 4.0 (OCT 16) 4.4 (OCT 15) L 3.1 (OCT 14) 3.9 (OCT 13) Cl L 87 (OCT 16) L 88 (OCT 15) L 87 (OCT 14) L 86 (OCT 13) CO2 30 (OCT 16) 28 (OCT 15) 32 (OCT 14) 32 (OCT 13) BUN H 35 (OCT 16) 21 (OCT 15) 18 (OCT 14) 13 (OCT 13) Cr H 1.10 (OCT 16) 0.90 (OCT 15) 0.90 (OCT 14) 1.00 (OCT 13) Glu R H 132 (OCT 16) H 147 (OCT 15) 91 (OCT 14) H 111 (OCT 13) Ca 8.8 (OCT 16) 8.7 (OCT 15) 8.4 (OCT 14) 8.5 (OCT 13) Lactic 0.8 (OCT 21) AST 18 (OCT 21) ALT 27 (OCT 21) ALK P 66 (OCT 21) T Bili 0.8 (OCT 21) PTN L 6.2 (OCT 21) ALB L 3.0 (OCT 21) Troponin H 0.079 (OCT 21) Radiology Results (Last 48 hours) [id number] -- 10/20/2018 23:00 CR Chest 1 Vw Portable (10/23/2018 17:40) Result: PORTABLE CHEST 10/23/2018 2:55 PMHISTORY: Status post pacemaker placementCOMPARISON: October 21, 2018FINDINGS: A new left-sided pacemaker is present. The cardiac silhouetteis normal in size. The mediastinal and hilar contours are unremarkable. There is mild left basilar atelectasis or infiltrate, new from the priorstudy. There is no pneumothorax. The visualized osseous structuresdemonstrate no acute abnormalities.IMPRESSION: No pneumothorax.New mild left basilar atelectasis or infiltrate. Images reviewed, interpreted, and dictated by Dr. Leonela Travis.Transcribed by Tirso Herrera.I have personally viewed, interpreted and dictated the examination. Liban read and agree with the above final transcribed report. CR Chest 2 Vws (10/24/2018 06:51) Result: TWO-VIEW CHEST 10/24/2018 6:00 AM HISTORY: Post pacemaker placement.COMPARISON: 13 hours prior.FINDINGS: The heart is stable in size. There has been interval worseningin the perihilar and bibasilar opacities. There is no pneumothorax. Thesupport devices are in good position. IMPRESSION: Interval worsening as above.Continued follow up recommended.Images reviewed, interpreted, and dictated by Dr. [...] EP consult for Bi-V implant, on 10/23 when okay, - Lost her IV access will switch Lasix to Bumex, 1 mg twice a day, monitor renal function very closely, - monitor I&O and daily weights - cxr showing no significant edema - continue coreg, aspirin, would hold on spironolactone,valsartan, the slightly increasing creatinine RSV bronchitis- improving - solumedrol started on 10/22 wall switch her to oral taper, - continue nebs and mucinex Acute respiratory failure hypoxic secondary to above Continue oxygen to keep sat more than 92 x-ray noted today, Symptomatically treatment Taper steroid Diuresis, Acute kidney injury, In face of contrast, and osteoporosis Monitor very closely Adjust medication Will stop the Aldactone and losartan Monitor in face of diuresis severe mitral regurgitation - recent community acquired pna - pt had been on antibiotics for a few days prior to admission - zosyn stopped, procal nml - s.p azithro vaginal yeast infection -diflucan x 1 on 10/22 thrush - nystatin swish and swallow history of asthma - prn nebs - add mucinex hyponatremia, poa - improved - mointor closely with diuresis anxiety - continue home prn valium hypokalemia - replete hypomag - replete d/w rn and with EP time spent: 32 min Electronically signed by [facility], [facility] Conversion Manager Forensic Cerner at 11/28/2022 5:45 PM CDT documented in this encounter Plan of Treatment Upcoming Encounters Date Type Department Care Team (Late st Contact Info) Description 08/23/2025 12:45 PM EST Office Visit [facility] Electrophysiology [address] [place] [phone] Vik Corcoran MD [address] [place] [address] [address] [place] [phone] documented as of this encounter Visit Diagnoses Not on filedocumented in this encounter Care Teams Dehydrator Relationship Specialty Start Date End Date Alfred Cantu MD [address] [place] [address] PCP - General General Internal Medicine 08/29/22 Lyndsey Key MD [address] [place] [address] [address] [place] [address] Lead Former Interventional Cardiology 08/29/22 Vik Corcoran MD [address] [place] [address] [address] [place], [place] [phone] Lead Former Electrophysiology 05/19/24 documented as of this encounter
--- OUTSIDE RECORDS SUMMARY | 2025-02-18 10:42 | XMS_ITS | Encounter Summary ---
Author Organization [employer] ([place], [place], [place], [place]) Address [address] [place] [address] Care Team Providers Care Snow Remover Name Role Phone Alfred Cantu MD Primary Care Provider [phone] Lyndsey Key MD Unavailable [phone] Vik Corcoran MD Unavailable Encounter Details Date Type Department Care Team (Late st Contact Info) Description 10/23/2018 Transcribed Document [facility] [place] [facility] [place] [address] ProviderRashard MD [address] [place] [address] Social History Tobacco Use Types Packs/Day Years Used Date Smoking Tobacco: Never Assessed Comments Unknown Sex and Gender Information Value Date Recorded Sex Assigned at Not on file Legal Sex Female 1:15 PM CDT Gender Identity Not on file Sexual Orientation Not on file documented as of this encounter Miscellaneous Notes * Cerner Conversion Note - Rashard ProviderMD - 10/23/2018 5:00 PM CDT Chart Check - Review Order Profile Entered On: 10/23/2018 20:02 EDT Performed On: 10/23/2018 17:00 EDT by Alyssa Rajan RN Chart Check Chart Reviewed Date and Time : 10/23/2018 20:02 EDT Powerplans Initiated/Discontinued as Appropriate : Yes All Active Orders Reviewed : Yes Alyssa Rajan RN - 10/23/2018 20:02 EDT Electronically signed by Kavita [facility] Conversion Bulk Gas Specialist Cerner at 11/28/2022 5:37 PM CDT documented in this encounter Plan of Treatment Upcoming Encounters Date Type Department Care Team (Late st Contact Info) Description 08/23/2025 12:45 PM EST Office Visit [facility] Electrophysiology [address] [place] [phone] [place] [address] [place] [address] [address] [place] [address] documented as of this encounter Visit Diagnoses Not on filedocumented in this encounter Care Teams Snow Remover Relationship Specialty Start Date End Date Alfred Cantu MD [address] [place] [address] PCP - General General Internal Medicine 08/29/22 Lyndsey Key MD [address] [place] [address] [address] [place] [address] Instrument Repairer Interventional Cardiology 08/29/22 Vik Corcoran MD [address] [place] [address] [address] [place] [address] Instrument Repairer Electrophysiology 05/19/24 documented as of this encounter
--- OUTSIDE RECORDS SUMMARY | 2025-02-18 10:42 | XMS_ITS | Encounter Summary ---
Author Organization [employer] ([place], [place], [place], [place]) Address [address] [place] [address] Care Team Providers Care Western Philosophy Professor Name Role Phone Alfred Cantu MD Primary Care Provider [phone] Lyndsey Key MD Unavailable [phone] Vik Corcoran MD Unavailable Encounter Details Date Type Department Care Team (Late st Contact Info) Description 10/02/2021 Transcribed Document [facility] Family Medicine [address] [place] [address] ProviderRashard MD [address] [place] [address] Social History Tobacco Use Types Packs/Day Years Used Date Smoking Tobacco: Never Assessed Family and Community Support Answer Sebastian e Recorded Help with Day to Day Activities Not on file 08/29/2023 Feeling Lonely or Isolated Not on file 08/29 Educational Attainment Answer Date Ezra rded Speak language other than Colombian at home Not on file 08/29/2023 Want [...] - Historical ProviderMD - 10/02/2021 8:36 AM RETAIL EVENT COORDINATOR Patient Education Materials Follows: Moderate Conscious Sedation, Adult, Care After This sheet gives you information about how to care for yourself after your procedure. Your health care provider may also give you more specific instructions. If you have problems or questions, contact your health care provider. What can I expect after the procedure? After the procedure, it is common to have: ??? Sleepiness for several hours. ??? Impaired judgment for several hours. ??? Difficulty with balance. ??? Vomiting if you eat too soon. Follow these instructions at home: For the time period you were told by your health care provider: ??? Rest. ??? Do not participate in activities where you could fall or become injured. ??? Do not drive or use machinery. ??? Do not drink alcohol. ??? Do not take sleeping pills or medicines that cause drowsiness. ??? Do not make important decisions or sign legal documents. ??? Do not take care of children on your own. Eating and drinking ??? Follow the diet recommended by your health care provider. ??? Drink enough fluid to keep your urine pale yellow. ??? If you vomit: ? Drink water, juice, or soup when you can drink without vomiting. ? Make sure you have little or no nausea before eating solid foods. General instructions ??? Take lhut-icq-dnzpyhf and prescription medicines only as told by your health care provider. ??? Have a responsible adult stay with you for the time you are told. It is important to have someone help care for you until you are awake and alert. ??? Do not smoke. ??? Keep all follow-up visits as told by your health care provider. This is important. Contact a health care provider if: ??? You are still sleepy or having trouble with balance after 24 hours. ??? You feel light-headed. ??? You keep feeling nauseous or you keep vomiting. ??? You develop a rash. ??? You have a fever. ??? You have redness or swelling around the IV site. Get help right away if: ??? You have trouble breathing. ??? You have new-onset confusion at home. Summary ??? After the procedure, it is common to feel sleepy, have impaired judgment, or feel nauseous if you eat too soon. ??? Rest after you get home. Know the things you should not do after the procedure. ??? Follow the diet recommended by your health care provider and drink enough fluid to keep your urine pale yellow. ??? Get help right away if you have trouble breathing or new-onset confusion at home. This information is not intended to replace advice given to you by your health care provider. Make sure you discuss any questions you have with your health care provider. Document Revised: 11/24/2020 Document Reviewed: 06/22/2020 [employer] Patient Education ? 2020 [employer]. Radiology Transesophageal Echocardiogram Transesophageal echocardiogram (PETER) is a test that uses sound waves to take pictures of your heart. PETER is done by passing a small probe attached to a flexible tube down the part of the body that moves food from your mouth to your stomach (esophagus). The pictures give clear images of your heart. This can help your doctor see if there are problems with your heart. Tell a doctor about: ??? Any allergies you have. ??? All medicines you are taking. This includes vitamins, herbs, eye drops, creams, and ccso-zmi-qjpixvn medicines. ??? Any problems you or family members have had with anesthetic medicines. ??? Any blood disorders you have. ??? Any surgeries you have had. ??? Any medical conditions you have. ??? Any swallowing problems. ??? Whether you have or have had a blockage in the part of the body that moves food from your mouth to your stomach. ??? Whether you are or may be . What are the risks? In general, this is a safe procedure. But, problems may occur, such as: ??? Damage to nearby structures or organs. ??? A tear in the part of the body that moves food from your mouth to your stomach. ??? Irregular heartbeat. ??? Hoarse voice or trouble swallowing. ??? Bleeding. What happens before the procedure? Medicines ??? Ask your doctor about changing or stopping: ? Your normal medicines. ? Vitamins, herbs, and supplements. ? Zvfq-gat-vpwkuwo medicines. ??? Do not take aspirin or ibuprofen unless you are told to. General instructions ??? Follow instructions from your doctor about what you cannot eat or drink. ??? You will take out any dentures or dental retainers. ??? Plan to have a responsible adult take you home from the hospital or clinic. ??? Plan to have a responsible adult care for you for the time you are told after you leave the hospital or clinic. This is important. What happens during the procedure? An IV will be put into one of your veins. ??? You may be given: ? A sedative. This medicine helps you relax. ? A medicine to numb the back of your throat. This may be sprayed or gargled. ??? Your blood pressure, heart rate, and breathing will be watched. ??? You may be asked to lie on your left side. ??? A bite block will be placed in your mouth. This keeps you from biting the tube. ??? The tip of the probe will be placed into the back of your mouth. ??? You will be asked to swallow. ??? Your doctor will take pictures of your heart. ??? The probe and bite block will be taken out after the test is done. The procedure may vary among doctors and hospitals. What can I expect after the procedure? You will be monitored until you leave the hospital or clinic. This includes checking your blood pressure, heart rate, breathing rate, and blood oxygen level. ??? Your throat may feel sore and numb. This will get better over time. You will not be allowed to eat or drink until the numbness has gone away. ??? It is common to have a sore throat for a day or two. ??? It is up to you to get the results of your procedure. Ask how to get your results when they are ready. Follow these instructions at home: ??? If you were given a sedative during your procedure, do not drive or use machines until your doctor says that it is safe. ??? Return to your normal activities when your doctor says that it is safe. ??? Keep all follow-up visits. Summary ??? PETER is a test that uses sound waves to take pictures of your heart. ??? You will be given a medicine to help you relax. ??? Do not drive or use machines until your doctor says that it is safe. This information is not intended to replace advice given to you by your health care provider. Make sure you discuss any questions you have with your health care provider. Document Revised: 03/20/2021 Document Reviewed: 03/20/2021 Elsevier Patient Education ? 2020 [employer] documented in this encounter Plan of Treatment Upcoming Encounters Date Type Department Care Team (Late st Contact Info) Description 08/23/2025 12:45 PM EST Office Visit [facility] Electrophysiology [address] [place] [address] [place] [address] [place] [address] [address] [place], [place] [id number] documented as of this encounter Visit Diagnoses Not on filedocumented in this encounter Care Teams Western Philosophy Professor Relationship Specialty Start Date End Date Alfred Cantu MD [address] [place] [address] [place] [address] PCP - General General Internal Medicine 08/29/22 [place] [address] [place] [address] [address] [place], [place] [id number] Sheet Folder Interventional Cardiology 08/29/22 Vik Corcoran MD [address] [place] [address] [address] [place] [address] Sheet Folder Electrophysiology 05/19/24 documented as of this encounter
--- OUTSIDE RECORDS SUMMARY | 2025-02-18 10:42 | XMS_ITS | Continuity of Care Document ---
Author Organization [facility], PAIN MEDICINE [address] [place] [address] Assessment Encounter Date Assessment Date Assessment LastModified by Organization Details LastModified Time 01/06/2025 01/06/2025 This is an 84-year-old female seen today for follow-up evaluation of lumbosacral pain. This is worse with standing and walking and endorses symptoms into the legs and feet. Previously was neurosurgery consult she endorsed back pain only therefore surgery was not recommended. Unfortunately ROCK, RFA and SI joint injection have not provided durable relief. Pain seems to be worse now than previously. She is quite emotional about the pain that is ongoing without notable improvement PMH: Bassam (ASA) PSHx: Pacemaker (not MRI compatible) 1. CT scan lumbar spine 06/30/2023 demonstrates severe L4-5 spinal canal stenosis with grade 1 L5-S1 anterolisthesis. Severe multilevel disc and facet arthritis 2. CT myelogram performed 06/24/2024 at [facility] demonstrates moderate central stenosis L2-3. Moderate central [...] lumbar spondylosis and stenosis. I recommend: 1. We will proceed with SCS. Preop Surgery Preparation Diabetes history: No MRSA history: No or Unknown Postop infection history: No Immune compromised: No Anticoagulants: ASA 2. Recommend consultation with cardiology/ clearance in conjunction with implantable devices given an MRI non compatible pacemaker in the setting of A-fib. 3. update imaging including CT myelogram of the thoracic and lumbar spine prior to considering trial I had an in-depth discussion with the [...] notes, and relevant labs. [email or web address] Not available 01/07/2025 08:37:28 Plan of Treatment Reminders Order Date Submit Date Provider Last Modified By Organization Details Last Modified Time Details Appointments None recorded. Lab glycohemo globin, total, blood 2024 025 [facility], [address] [place] [address], [id number], 5 10:54:55 methicill in resistant staphyloc occus aureus, culture, nasal 2024 025 [facility], [address] [place] [address], [phone], 5 14:43:10 Referral psycholog ist referral - Evaluatio n for spinal cord stimulato r trial 2024 025 [facility], [address] [place] [address], [address], [place], [address], 5 08:13:59 Procedures spinal cord stimulato r trial (PROC) 2024 025 darion [facility], [address] [place] [address], [facility] [address], [place], [address], 5 08:33:13 Surgeries None recorded. Imaging CT, myelogram , lumbar spine [email or web address] [place] [address], [address] [facility] , [place], [address], 08:03:25 CT, myelogram , thoracic spine 2024 025 [email or web address] [facility] Scheduling, [address] [facility] , [place], [address], 08:03:25 Medication Orders mupirocin 2 % topical ointment 2024 025 [facility], [address], [address], 15:45:19 Hibiclens 4 % topical liquid 2024 025 [facility], [address], [address], 15:45:20 Patient TargetsNo targets recorded. Patient Instructions Encounter Date Encounter Id Patient Instructions Last Modified By Organization Details Last Modified Time 01/06/2025 [id number] spinal cord stimualtor trial information [email or web address] Not available 01/06/2025 15:45:12 cardiac clearance* - Requesting permission to hold aspirin for 6 days prior to SCS trial and remain off the medication throughout trial for a total hold of 9 days. We are aware patient has watchman.pacemake r and this will require the presence of the reps in the OR [email or web address] Not available 02/14/2025 08:20:07 cardiac clearance* - requesting cardiac clearance for patient to hold aspirin for [address] myelogram [email or web address] Not available 02/02/2025 09:22:20 Reason for Referral Psychologist Referral for Aiyana mbar radiculopathy Evaluation for spinal cord stimulator trial Evaluation for spinal cord stimulator trial Referring Physician: Dandre Khan, Pain Management, Encounter Date: 01/06/2025 Results Created Date Observation Date Name Description Value Unit Range Abnormal Flag Note LastModifiedBy Organization Detail LastModifiedTime 02/01/2006/24/2024 CT, myelo gram, lumba r spine No observ ation record ed. [email or web address] [facility] Scheduling [address] [facility] , [place], [address], 02/07/2025 14:21:52 Result Notes None recorded. Problems No Known Problems Procedures Surgical History Date Name Laterality Status Provider Name and Address Organization Details Recorded Time 09/17/19 25 Lumbar Epidural Steroid Injection - Ean completed MURALI TRAMMELL MD [address] [place], [address], [facility] 09/17/2024 14:53:42 07/01/20 24 Sacroiliac Joint Injection - Ean completed MURALI TRAMMELL MD [address] [place] [address], [phone], [facility] 07/01/2024 12:32:17 02/17/20 24 Lumbar RFA Bilateral - [place] [address] [place] [address], [phone], [facility] 02/17/2024 13:22:27 02/03/20 24 Lumbar MBB bilateral 2 level - Ean completed MURALI TRAMMELL MD [address] [place], [address], [facility] 02/03/2024 16:09:45 01/26/20 24 Lumbar MBB bilateral 2 level - [place] [address] [place] [address], [phone], [facility] 01/26/2024 14:50:15 08/11/19 19 procedure on heart completed [facility] 12/26/2023 10:35:46 cholecystectomy completed [facility] 12/26/2023 10:36:02 Appendectomy completed [facility] 12/26/2023 10:36:17 Imaging Results None recorded. Procedure Notes None recorded. Medical Equipment None Reported. Allergies Allergen ID Allergen Name Allergen Category Reaction Reaction Severity Criticality Documentation Date Start Date Code Code System Note Provider Name and Address Organization Details Recorded Time 168420 Substance with sulfonami de structure and antibacte rial mechanism of action (substanc e) medicatio n Not available Not available Not available 12/26/2023 11814 8003 SNOMED Graciela Clark [facility] 4 10:27:37 310714 latex environme nt,medica tion itching Not available Not available 06/28/2024 49561 91 RxNorm Burni ng and itchi ng Meena Jefferson [facility] 4 14:01:35 Medications Name Sig Start Date Stop [...] twice a day by oral route. active 0.5 Not Available Not Available No t Available Tylenol Arthritis Pain 650 mg tablet,ex tended release Take 2 tablets every 8 hours by oral route. active Not Available Not Available No t Available amlodipin e 2.5 mg tablet Take 1 tablet every day [...] completed Not Available Not Available Not Available mupirocin 2 % topical ointment APPLY A SMALL AMOUNT TO THE NARES 3 TIMES PER DAY FOR 5 DAYS PRIOR TO PROCEDUR E 2024 active Not Available Not Available Not Avai lable irbesarta n 150 mg tablet Take 1 tablet every day by oral route. active Not Available Not Available No t Available Bumex 0.5 mg tablet Take 1 tablet every day by oral route. 10/14 completed Not Available Not Available Not Available Hibiclens 4 % topical liquid Apply topicall y to procedur e area and scrub in bath the evening prior and morning of your procedur e. 2024 active Not Available Not Available Not Avai lable diazepam 5 mg tablet Take 1 tablet as needed by oral route. active Not Available Not Available No t Available amiodaron e 100 mg tablet Take 0.5 tablets every day by oral route. active Not [...] blood by Pulse oximetry Heart rate Systolic And Diastolic Provider Name and Address Organization Details Last Updated DateTime 152.4 cm 97 [degF] 95 % 95 % 62 /min 130/72 mm[Hg] Kurtis Ramos [facility] 15:26:34 Social History Question Answer Notes LastModified by [employer] Details LastModified Time Tobacco Smoking Status [facility] 12/26/2023 10:35:11 What Was The Date Of Your Most Recent Tobacco Screening? 01/06/2025 [email or web address] Information not available 01/06/2025 What Is Your Relationship Status? [email or web address] Information not available 12/26/2023 Has Tobacco Cessation Counseling Been Provided? No [email or web address] Information not available 12/26/2023 Sex: Unknown Functional Status Question Answer Note LastModified by [employer] Details LastModified Time Do you use any illicit or recreational drugs? No [email or web address] Information not available 12/26/2023 Do you or have you ever used any other forms of tobacco or nicotine? No [email or web address] Information not available 12/26/2023 What is your level of alcohol consumption? None [email or web address] Information not available 12/26/2023 Are you currently employed? No [email or web address] Information not available 12/26/2023 Mental Status None recorded. Family History Relationship Description Onset Age of this Age Resolved Age Notes LastModified by Organization Details LastModified Time Sister Family history of malignant neoplasm [email or web address] Not available 12/25 10:34:59 Medical History Condition Response Kidney Stones N Blood Transfusion N COPD N Arthritis Y Blood Clot N Cancer N Stroke N Headaches N Kidney Disease N Heart Problems Y Bleeding Disorder N Asthma Y Thyroid Disorder N Colon/Rectal Disorders N Hearing Loss Y Blood Thinners N High Cholesterol Y Liver Disease N Heart Attack ([place]) Sleep Apnea Y Hypertension Y Osteoporosis N Gynecological HistoryNo gynecological history recorded. Obstetrics History GPAL:G 0 P 0 0 0 0 Past Encounters Encounter ID Performer Location Encounter Start Date Encounter Closed Date Diagnosis/Indication Diagnosis SNOMED-CT Code Diagnosis ICD10 Code Diagnosis Note [id number] DANDRE KHAN PA-C PAIN MEDICINE [address] [place] [address] 12/21/2024 13:58:45 12/21/2024 16:05:29 Spinal stenosis of lumbar region 50574252 M48.062 Lumbar spondylosis 88376 0009 M47.816 Degenerati on of lumbar intervertebral disc 16106346 M51.362 Low back pain 387884670 M54.51 [id number] DANDRE KHAN PA-C PAIN MEDICINE [address] [place] [address] 01/06/2025 15:03:26 01/08/2025 04:11:56 Spinal stenosis of lumbar region 73852138 M48.062 Lumbar spondylosis 76175 0009 M47.816 Degenerati on of lumbar intervertebral disc 39821405 M51.362 Low back pain 108576761 M54.51 Displaceme nt of lumbar intervertebral disc 5635583942 M51.26 Lumbar radiculopathy 128 320597 M54.16 Lumbar post-laminectomy syndrome 267993717 M96.1 Health Concerns Section Related Observation LastModified by Organization Detai ls LastModified Time None Recorded Concern Status LastModified by Organization Details LastModified Time None Recorded Payers Encounter Date Sequence Insurance Name Policy Number Policy Fritz Covered Member ID Fritz Member ID Guarantor Name 01/06/2025 1 [place] Kathy Jimenez [id number] Kathy Jimenez 01/06/2025 2 [employer] (MEDICARE SUPPLEMENT) Kathy Jimenez [id number] Kathy Jimenez Notes Date Note Type Note Provider Name and Address Organization Details Recorded Time 01/06/2025 text/html Pain Management L-spine GISHReported bypatient.Location :bilateral LE radiation; LBP; left buttock pain; left hip pain; right buttock pain; right hip pain Quality:aching;sha rp Severity:current pain level 8/10; worst pain 10/10;worsening;in terference with sleep Duration:constant Onset/Timing:chron ic; 5 years Context:cannot identify Alleviating Factors:heat Aggravating Factors:getting out of bed; going from sit to stand; sitting; standing; walking Associated Symptoms:no numbness; no bladder compromise; no bowel compromise;weaknes s Radiation:bilatera l LE Driving Impairments with Medications:no Prior Imaging:CT scan; myelogram (CT Myelogram [place] 06/24/2024) Prior EMG:none Previous Surgery:none Previous Injections:ROCK (09/03); SI joint injection (Salvador Hips per Destin Keyes MD); helped a little Previous PT:Date completed: 2022 ([facility]); did not help Previous Joint Terminal Attack Controller:none Kathy Jimenez is a 84 yo female here today for salvador low back pain that is radiating down into salvador hips/buttocks, down all over legs to feet. Pt state pain is worse today than ever. DANDRE KHAN PA-C [facility] [place], [address], [facility] 01/11/2025 16:01:00 OBGyn Episode No OBEpisode recorded.
--- OUTSIDE RECORDS SUMMARY | 2025-02-18 10:42 | XMS_ITS | Encounter Summary ---
Author Organization [employer] ([place], [place], [place], [place]) Address [address] [place] [address] Care Team Providers Care Resident Care Spec Name Role Phone Alfred Cantu MD Primary Care Provider [phone] Lyndsey Key MD Unavailable [phone] Vik Corcoran MD Unavailable Encounter Details Date Type Department Care Team (Late st Contact Info) Description 10/30/2018 Transcribed Document [facility] [address] [place] [address] ProviderRashard MD [address] [place] [address] Social History Tobacco Use Types Packs/Day Years Used Date Smoking Tobacco: Never Assessed Comments Unknown Sex and Gender Information Value Date Recorded Sex Assigned at Not on file Legal Sex Female 1:15 PM CDT Gender Identity Not on file Sexual Orientation Not on file documented as of this encounter Miscellaneous Notes * Cerner Conversion Note - Historical ProviderMD - 10/30/2018 5:00 PM CDT Chart Check - Review Order Profile Entered On: 10/30/2018 20:14 EDT Performed On: 10/30/2018 17:00 EDT by NAN POLANCO, RN Chart Check Chart Reviewed Date and Time : 10/30/2018 17:00 EDT NAN POLANCO, RN - 10/30/2018 20:14 EDT documented in this encounter Plan of Treatment Upcoming Encounters Date Type Department Care Team (Late st Contact Info) Description 08/23/2025 12:45 PM EST Office Visit [facility] Electrophysiology [address] [place] [address] [place] [address] [place] [address] [address] [place] [address] documented as of this encounter Visit Diagnoses Not on filedocumented in this encounter Care Teams Resident Care Spec Relationship Specialty Start Date End Date Alfred Cantu MD [address] [place] [address] PCP - General General Internal Medicine 08/29/22 Lyndsey Key MD [address] [facility] [address] [address] Manager Garden Interventional Cardiology 08/29/22 [place] [address] [place] [address] [address] Manager [place] Electrophysiology 05/19/24 documented as of this encounter
--- OUTSIDE RECORDS SUMMARY | 2025-02-18 10:42 | XMS_ITS | Encounter Summary ---
Author Organization [employer] ([place], [place], [place], [place]) Address [address] [place] [address] Care Team Providers Care Outside Industrial Sales Representative Name Role Phone Alfred Cantu MD Primary Care Provider [phone] Lyndsey Key MD Unavailable [phone] Vik Corcoran MD Unavailable Encounter Details Date Type Department Care Team (Late st Contact Info) Description 10/27/2018 Transcribed Document [facility] [place] [facility] [place] [address] ProviderRashard MD [address] [place] [address] Social History Tobacco Use Types Packs/Day Years Used Date Smoking Tobacco: Never Assessed Comments Unknown Sex and Gender Information Value Date Recorded Sex Assigned at Not on file Legal Sex Female 1:15 PM CDT Gender Identity Not on file Sexual Orientation Not on file documented as of this encounter Miscellaneous Notes * Cerner Conversion Note - Rashard ProviderMD - 10/27/2018 1:46 PM CDT [address] , [place] [address] Patient Copy Patient Information: Name: KATHY JIMENEZ Current Date: 10/27/2018 13:46:18 : 1940 Patient [address]: [address] [place], [place] [address] [address] Patient Attending Physician: CARMELLA MEI MD-INT Primary Care Provider: ZAY, NOT LISTED Primary Care Provider Phone: Discharge Diagnosis: Weight on Admission: 194 lb, 1 oz Weight at Discharge: 183 lb, 5 oz Comment: Follow-up Instructions: With: Address: When: Follow up with primary care provider Within 1 week Comments: Please call to make a 1 week follow-up appointment with your family MD. If you need assistance finding a family MD please call [phone]. With: Address: When: NAZANIN NAVA [address] [place] [address] [facility] (1) 9:00 AM Comments: You will have [...] antibacterial soap and water after the dressing Immunizations Documented During Stay: No Immunizations Found Pain Management: Over the counter medication as directed. Worker's Compensation Paperwork Completed: No Heart Failure Discharge Instructions (if any): Ejection [...] Discharge Instructions (if any): Final Medication List: Printed Prescriptions albuterol-ipratropium (DuoNeb 0.5 mg-2.5 mg/3 mL inhalation solution) 3 Milliliter(s) Nebulized Inhalation Every 6 Hours as needed Dyspnea for 7 Day(s). Refills: 0. bumetanide (bumetanide 1 mg oral tablet) 1 Tablet(s) Oral Every Day for 30 Day(s). Refills: 0. carvedilol (Coreg 25 mg oral tablet) 2 Tablet(s) Oral Two Times A Day for 30 Day(s). Refills: 0. guaiFENesin (Mucinex 600 mg oral tablet, extended release) 2 Tablet(s) Oral Two Times A Day for 5 Day(s). Refills: 0. levoFLOXacin (Levaquin 500 mg oral tablet) 1 Tablet(s) Oral Interval Every 24 Hours for 7 Day(s). Refills: 0. Other Medications [...] 1 Puff(s) Inhalation Two Times A Day. losartan (losartan 50 mg oral tablet) 1 Tablet(s) Oral Every Day. montelukast (Singulair 10 mg oral tablet) 1 [...] Follow these instructions at home: Medicines??? Take zczc-kzs-yyrfyyz and prescription medicines only as told by [...] and water are not available, use hand medical technologist prn. ? Change your dressing as told by [...] radio towers. ??? Do notuse amateur ( [employer] ) radio equipment or electric ( arc [...] 12/08/2007 Document Revised: 04/21/2017 Document Reviewed: 03/06/2015 [employer] Interactive Patient Education ? 2017 [employer] Smoking Hazards Smoking cigarettes is extremely [...] contain harmful chemicals. FOR MORE INFORMATION ??? Citizen [place] Lung Association: www.lung.org ??? [place] Cancer Society: www.cancer.org This information is not intended to replace advice given to you by your health care provider. Make sure you discuss any questions you have with your health care provider. Document Released: 09/04/2005 Document Revised: 11/18/2016 Document Reviewed: 01/17/2014 [employer] Interactive Patient Education ? 2017 [employer] Heart-Healthy Eating Plan Many factors influence [...] foods can I eat? Grains Breads, including Maltese, white, serenity, wheat, raisin, rye, oatmeal, and Danish. Tortillas that are neither fried nor made with lard or trans fat. Low-fat rolls, including hotdog and hamburger buns and Kosovan muffins. Biscuits. Muffins. Waffles. Pancakes. Light popcorn. Whole-grain cereals. Flatbread. Nanette toast. Pretzels. Breadsticks. Rusks. Low-fat snacks and [...] cheese. Whole milk cheeses, including blue (henry), [place] Gary, Brie, Hayes, Citizen [place], Havarti, Mozambican, cheddar, Camembert, and F[place]ont. Whole or 2% milk that is liquid, [...] that has suet, meat fat, or shortening. Rangely butter, hydrogenated oils, palm oil, coconut oil, [...] 05/06/2009 Document Revised: 02/14/2017 Document Reviewed: 01/19/2015 [employer] Interactive Patient Education ? 2017 [employer]. How to Take a Pulse Your [...] 02/01/2004 Document Revised: 02/14/2017 Document Reviewed: 12/31/2016 [employer] Interactive Patient Education ? 2017 [employer]. How to Take Your Blood Pressure [...] 07/10/2009 Document Revised: 08/18/2015 Document Reviewed: 09/22/2014 ElseDecoholic Interactive Patient Education ? 2017 Elsevier Inc. Cardiomyopathy, Adult Cardiomyopathy is a long-term [...] Other treatments may include cardiac resynchronization therapy (CASINO GAMES DEALER) or a left ventricular assist device (LVAD). [...] to manage stress. General instructions ??? Take knye-wll-hibelqi and prescription medicines only as told by [...] 10/10/2005 Document Revised: 03/25/2017 Document Reviewed: 01/27/2017 [employer] Interactive Patient Education ? 2017 [employer]. Medication Leaflets: bumetanide (oral/injection) (huong mccain) Bumex What is the most important information [...] may report side effects to FDA at 2-791-PEM-6216. What other drugs will affect bumetanide? Bumetanide [...] drugs may affect bumetanide, including prescription and lnsh-fxy-ghqadgq medicines, vitamins, and herbal products. Not all [...] to ensure that the information provided by [employer]. ('Mult[employer]') is accurate, up-to-date, and complete, but no guarantee is made to that effect. Drug information contained herein may be time sensitive. [employer] information has been compiled for use by healthcare practitioners and consumers in the [place] and therefore [employer] does not warrant that uses outside of the [place] are appropriate, unless specifically indicated otherwise. [employer] drug information does not endorse drugs, diagnose patients or recommend therapy. [employer] drug information is an informational resource designed [...] effective or appropriate for any given patient. [facility] does not assume any responsibility for any aspect of healthcare administered with the aid of information [facility] provides. The information contained herein is not intended to cover all possible uses, directions, precautions, warnings, drug interactions, allergic reactions, or adverse effects. If you have questions about the drugs you are taking, check with your doctor, nurse or pharmacist. Copyright 4319-1219 [employer]. Version: 7.01. Revision Date: 08/13/2018. carvedilol (PRABHJOT ve dil ole) Germania Solo [...] may report side effects to FDA at 3-014-WWD-5158. What other drugs will affect carvedilol? Other drugs may interact with carvedilol, including prescription and xfai-oql-apbrdcy medicines, vitamins, and herbal products. Tell each [...] to ensure that the information provided by [employer]. ('[employer]') is accurate, up-to-date, and complete, but no guarantee is made to that effect. Drug information contained herein may be time sensitive. [employer] information has been compiled for use by healthcare practitioners and consumers in the [place] and therefore [employer] does not warrant that uses outside of the [place] are appropriate, unless specifically indicated otherwise. [employer] drug information does not endorse drugs, diagnose patients or recommend therapy. [employer] drug information is an informational resource designed [...] effective or appropriate for any given patient. [employer] does not assume any responsibility for any aspect of healthcare administered with the aid of information [employer] provides. The information contained herein is not intended to cover all possible uses, directions, precautions, warnings, drug interactions, allergic reactions, or adverse effects. If you have questions about the drugs you are taking, check with your doctor, nurse or pharmacist. Copyright 4988-5867 [employer]. Version: 15.. Revision Date: 08/30/2013. albuterol and ipratropium (inhalation) (al BUE ter ol and LIZA sheriff um) Combivent [...] or pounding heartbeats, fluttering in your chest; documented in this encounter Plan of Treatment Upcoming Encounters Date Type Department Care Team (Late st Contact Info) Description 08/23/2025 12:45 PM EST Office Visit [facility] Electrophysiology [address] [place] [address] [place] [address] [place] [address] [address] [place] [address] documented as of this encounter Visit Diagnoses Not on filedocumented in this encounter Care Teams Outside Industrial Sales Representative Relationship Specialty Start Date End Date Alfred Cantu MD [address] [place] [facility] [address] [place] [address] PCP - General General Internal Medicine 08/29/22 [place] [address] [place] [address] [address] [place], [place] [id number] Rotary Derrick Operator Interventional Cardiology 08/29/22 Vik Corcoran MD [facility] [place] [address] Rotary Derrick Operator Electrophysiology 05/19/24 documented as of this encounter
--- OUTSIDE RECORDS SUMMARY | 2025-02-18 10:42 | XMS_ITS | Encounter Summary ---
Author Organization [employer] ([place], [place], [place], [place]) Address [address] [place] [address] Care Team Providers Care Machine Filler Servicer Name Role Phone Alfred Cantu MD Primary Care Provider [phone] Lyndsey Key MD Unavailable Vik Corcoran MD Unavailable Encounter Details Date Type Department Care Team (Late st Contact Info) Description 10/27/2018 Transcribed Document [facility] [place] [facility] [place] [address] ProviderRashard MD [address] [place] [address] Social History Tobacco Use Types Packs/Day Years Used Date Smoking Tobacco: Never Assessed Comments Unknown Sex and Gender Information Value Date Recorded Sex Assigned at Not on file Legal Sex Female 1:15 PM CDT Gender Identity Not on file Sexual Orientation Not on file documented as of this encounter Miscellaneous Notes * Cerner Conversion Note - Rashard ProviderMD - 10/27/2018 9:27 AM CDT Patient: KATHY CARTER Age: 78 Years Sex: Female : 1940 Subjective Chief Complaint: Rested well; No cardiac complaints. Physical Exam (1, 6, 12) NAD No JVD Oropharynx moist Decreased BS over bases Regular, nl S1, S2, 3/6 HSM +BS,soft trace edema Superficial incision dressing CDI, no drainage noted. Vitals & Measurements T: 36.3 ??C TMIN: 36.3 ??C TMAX: 36.5 ??C HR: 99(Monitored) RR: 18 BP: 128/87 SpO2: 100% WT: 83.32 kg Assessment/Plan 1. 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 Acute systolic heart failure 3. Severe MR 4. Acute pneumonia,on IV antibiotics PLAN: 10/27/18 Left BIV-ICD incision with dressing clean, [...] Daily Bumex, 1 mg= 1 Tab, Oral, BID calcium gluconate calcium gluconate calcium gluconate Coreg, 50 mg= 2 Tab, Oral, BID Desenex AF 2% topical powder, 1 Application, Topical, TID diazePAM, 5 mg= 1 Tab, Oral, BID, PRN DuoNeb 0.5 mg-2.5 mg/3 mL inhalation solution, 3 mL, Nebulized Inhalation , RT_Q6H, PRN DuoNeb 0.5 mg-2.5 mg/3 mL inhalation solution, 3 mL, Nebulized Inhalation , RT_Q6H heparin, 5000 Units= 1 mL, SubCutaneous, Q8HInt lisinopril, 5 mg= 1 Tab, Oral, Daily magnesium sulfate, 2 Gram= 50 mL, IV Piggyback, Q2H, PRN magnesium sulfate, 2 Gram= 50 mL, IV Piggyback, Daily, PRN Mucinex, 1200 mg= 2 Tab, Oral, BID nystatin, [id number] Units= 10 mL, Swish and Swallow , [...] tablet, 81 mg= 1 Tab, Oral, Daily azithromycin 500 mg oral tablet, 500 mg= 1 Tab, Oral, Daily Coreg 25 mg oral tablet, 25 mg= 1 Tab, Oral, BID diazePAM 5 mg oral tablet, 5 mg= 1 Tab, Oral, Daily, PRN diclofenac sodium 75 mg oral delayed release tablet, 75 mg= 1 Tab, Oral, BID hydroCHLOROthiazide-triamterene 25 mg-37.5 mg oral tablet, 1 Tab, Oral, Daily losartan 50 mg oral tablet, 50 mg= 1 Tab, Oral, Daily omeprazole 20 mg oral delayed release capsule, 40 mg= 2 Cap, Oral, Daily ProAir HFA 90 mcg/inh inhalation aerosol, 2 Puff, Inhalation, QID, PRN Singulair 10 mg oral tablet, 10 mg= 1 Tab, Oral, Daily Lab Results OCT 27 03:59 L 129 L 88 H 42 / 104 4.3 H 34 H 1.10 \ OCT 21 05:27 \ 11.7 / H 14.6 225 / 36.4 \ Diagnostic Results EKG tele: NSR; 99 bpm documented in this encounter Plan of Treatment Upcoming Encounters Date Type Department Care Team (Late st Contact Info) Description 08/23/2025 12:45 PM EST Office Visit [facility] Electrophysiology [address] [place] [address] [place] [address] [place] [address] [address] [place] [address] documented as of this encounter Visit Diagnoses Not on filedocumented in this encounter Care Teams Machine Filler Servicer Relationship Specialty Start Date End Date Alfred Cantu MD [address] [place] [address] [place] [address] PCP - General General Internal Medicine 08/29/22 Lyndsey Key MD [address] [place] [address] [id number] Dragger Interventional Cardiology 08/29/22 Vik Corcoran MD [address] [place] [address] [address] [place], [place] [id number] Dragger Electrophysiology 05/19/24 documented as of this encounter
--- OUTSIDE RECORDS SUMMARY | 2025-02-18 10:42 | XMS_ITS | Encounter Summary ---
Author Organization [employer] ([place], [place], [place], [place]) Address [address] [place] [address] Care Team Providers Care Java User Interface Developer Name Role Phone Alfred Cantu MD Primary Care Provider [phone] Lyndsey Key MD Unavailable [phone] Vik Corcoran MD Unavailable Encounter Details Date Type Department Care Team (Late st Contact Info) Description 10/29/2018 Transcribed Document [facility] [place] [facility] [place] [address] ProviderRashard MD [address] [place] [address] Social History Tobacco Use Types Packs/Day Years Used Date Smoking Tobacco: Never Assessed Comments Unknown Sex and Gender Information Value Date Recorded Sex Assigned at Not on file Legal Sex Female 1:15 PM CDT Gender Identity Not on file Sexual Orientation Not on file documented as of this encounter Miscellaneous Notes * Cerner Conversion Note - Historical ProviderMD - 10/29/2018 5:00 PM CDT Chart Check - Review Order Profile Entered On: 10/29/2018 17:18 EDT Performed On: 10/29/2018 17:00 EDT by NAN POLANCO, RN Chart Check Chart Reviewed Date and Time : 10/29/2018 17:00 EDT NAN POLANCO, RN - 10/29/2018 17:18 EDT documented in this encounter Plan of Treatment Upcoming Encounters Date Type Department Care Team (Late st Contact Info) Description 08/23/2025 12:45 PM EST Office Visit [facility] Electrophysiology [address] [place] [address] [place] [address] [place] [address] [address] [place] [address] documented as of this encounter Visit Diagnoses Not on filedocumented in this encounter Care Teams Java User Interface Developer Relationship Specialty Start Date End Date Alfred Cantu MD [address] [place] [address] [place] [address] PCP - General General Internal Medicine 08/29/22 Lyndsey Key MD [address] [facility] [address] [address] Site Inspector Interventional Cardiology 08/29/22 [place] [address] [place] [address] [address] Site Inspector Electrophysiology 05/19/24 documented as of this encounter
--- OUTSIDE RECORDS SUMMARY | 2025-02-18 10:42 | XMS_ITS | Encounter Summary ---
Author Organization [employer] ([place], [place], [place], [place]) Address [address] [place] [address] Care Team Providers Care Office Mail Clerk Name Role Phone Alfred Cantu MD Primary Care Provider [phone] Lyndsey Key MD Unavailable [phone] Vik Corcoran MD Unavailable Encounter Details Date Type Department Care Team (Late st Contact Info) Description 10/26/2018 Transcribed Document [facility] [place] [facility] [place] [address] ProviderRashard MD [address] [place] [address] Social History Tobacco Use Types Packs/Day Years Used Date Smoking Tobacco: Never Assessed Comments Unknown Sex and Gender Information Value Date Recorded Sex Assigned at Not on file Legal Sex Female 1:15 PM CDT Gender Identity Not on file Sexual Orientation Not on file documented as of this encounter Miscellaneous Notes * Cerner Conversion Note - Rashard ProviderMD - 10/26/2018 5:26 PM CDT Care Management Assessment/Plan Entered On: 10/26/2018 17:32 EDT Performed On: 10/26/2018 17:26 EDT by REGINA TERRY International Controller Care Management Note Anticipated Discharge Date : 10/23/2018 15:00 EDT Care Management Note : Continue to follow for discharge needs and arrangements, chart reviewed, admission day #6, on 2 liters O2/nebs, Wz=064, Cl=95, WBC=18.9, CXR=FINDINGS: The heart is stable in size. The lung rosario demonstrate no significant change in the right base atelectasis. There is no pneumothorax. The support devices are in good position. IMPRESSION: There has been no significant interval change; PT/QM=056' with rwx, PO Prednison, EP completed wound check today on Bi-V-ICD site, plan at discharge (possible Friday10/27/18) is to return home with spouse, Braxton, who will transport and assist with care. HH choice at discharge is [facility], [facility], once HH orders for RN/PT/OT in place will make referral and finalize arrangements. Will also watch for patient's room air level on day of discharge in case home oxygen is needed. Will continue to follow. Care Management Note Report : REGINA TERRY, International Controller - 10/23/18 17:17:58 Continue to follow for discharge needs and arrangements, chart reviewed, admission day #3, transfer from SICU, currently on 2 liters O2/nebs, Ek=420, Cl=88, Mg=2.5, WBC=18.3, CXR=pending, on IV Solumedrol q6, PT/OT-will need reeval orders due to recent procedure, patient underwent a Bi-V-ICD placement today. Plan at discharge remains to return home with family support (+/- Home Health). CM will continue to follow. CONNIE LIVE RN - 10/22/18 13:28:57 improving chf. severe mitral regurg. nicm bipap/02 3L nc. zithromax. lasix iv q 8 hr. PT/OT consults. biv icd tomorrow. CONNIE LIVE RN - 10/21/18 13:09:33 readmit risk: moderate 57. transfer from [facility]. acute excerbation systolic heart failure. ef 25-30%. severe mitral regurg. severe nicm. CAP. for biv icd today. bipap 50%/02 4-6L nc. zithromax po. zosyn iv. ca gluconate iv x 2. kcl 20meq x 1. na phos iv x 1. PT consult. spoke with Ms. Jimenez. explained role of case management. pt resides in [facility]. she is adl independent. drives car. has cane, walker & cpap provided by [employer]. no current home health or previous rehab stays. discussed dc planning rehab vs home health depending on progress. pt has medicare primary. she advises she has [employer] insurance. notified annelise Alfred advocate for inclusion in records. spoke with bedside RN, Magda. Documentation Status Complete : Yes REGINA TERRY, International Controller - 10/26/2018 17:26 EDT Electronically signed by [facility], [facility] Conversion Manager Regulatory Cerner at 11/28/2022 5:43 PM CDT documented in this encounter Plan of Treatment Upcoming Encounters Date Type Department Care Team (Late st Contact Info) Description 08/23/2025 12:45 PM EST Office Visit [facility] Electrophysiology [address] [place] [address] [place] [address] [place] [address] [address] documented as of this encounter Visit Diagnoses Not on filedocumented in this encounter Care Teams Office Mail Clerk Relationship Specialty Start Date End Date Alfred Cantu MD [address] [place] [address] [place] [address] PCP - General General Internal Medicine 08/29/22 [place] [address] [place] [address] [address] Check Out Cashier Interventional Cardiology 08/29/22 [place] [address] [place] [address] [address] Check Out Cashier Electrophysiology 05/19/24 documented as of this encounter
--- OUTSIDE RECORDS SUMMARY | 2025-02-18 10:42 | XMS_ITS | Encounter Summary ---
Author Organization [employer] ([place], [place], [place], [place]) Address [address] [place] [address] Care Team Providers Care Education Program Coordinator Name Role Phone Alfred Cantu MD Primary Care Provider [phone] Lyndsey Key MD Unavailable [phone] Vik Corcoran MD Unavailable Encounter Details Date Type Department Care Team (Late st Contact Info) Description 10/29/2018 Transcribed Document [facility] [place] [facility] [place] [address] ProviderRashard MD [address] [place] [address] Social History Tobacco Use Types Packs/Day Years Used Date Smoking Tobacco: Never Assessed Comments Unknown Sex and Gender Information Value Date Recorded Sex Assigned at Not on file Legal Sex Female 1:15 PM CDT Gender Identity Not on file Sexual Orientation Not on file documented as of this encounter Miscellaneous Notes * Cerner Conversion Note - Rashard Gonzalez MD - 10/29/2018 2:28 PM CDT Patient: KATHY CARTER Age: 78 years Sex: Female : 1940 Associated Diagnoses: None Author: JOSE MEDRANO MD Subjective looks better tofay c/o some nausea , coughingh is better afebrile wbc i sup tachy and mikael episoode orthostatic hypotension better No nausea no vomiting No chest pain, No dysuria Objective Intake and Output Intake & Output Totals Last 24 Hours (7a-7a) Intake (7 Events) Oral Fluids (1050 mL) Oral Intake (720 mL) Output (5 Events) Urine Voided (Volume) (1300 mL) Input Total: 1770 mL Output Total: 1300 mL Balance: 470 mL VS/Measurements Vitals Signs (last 24 hrs) Last Charted Minimum Maximum Temp 97.9 (OCT 29 06:23) 97.9 (OCT 29 06:23) 98.4 (OCT 28:) Mon HR 70 (OCT 29 11:09) 47 (OCT 29 02:34) 110 (OCT 28 17:30) Resp Rate 18 (OCT 29 11:09) 16 (OCT 29 06:23) 19 (OCT 28:17) SBP 103 (OCT 29 09:42) 101 (OCT 29 06:27) H 155 (OCT 28 17:30) DBP 69 (OCT 29 09:42) L 58 (OCT 28 14:53) H 98 (OCT 28:17) MAP 82 (OCT 29 09:42) 68 (OCT 28 14:53) 118 (OCT 28 22:17) SpO2 94 (OCT 29 11:09) 94 (OCT 29 09:34) 95 (OCT 28 22:33) General: Alert and oriented, No acute distress. [...] affect. Results Review General results Interpretation: OCT 29 04:33 \ 12.2 / C 39.7 174 / 36.9 \ Labs (Last four charted values) WBC C 39.7 (OCT 29) C 34.7 (OCT 28) H 23.9 (OCT 27) H 18.9 (OCT 18) HB 12.2 (OCT 29) 12.7 (OCT 28) 12.0 (OCT 27) 13.3 (OCT 18) HCT 36.9 (OCT 29) 38.6 (OCT 28) 36.7 (OCT 27) 43.7 (OCT 18) Plt 174 (OCT 29) 187 (OCT 20) 185 (OCT 27) 170 (OCT 18) Na L 128 (OCT 28) L 129 (OCT 27) L 129 (OCT 18) L 127 (OCT 25) K 5.1 (OCT 28) 4.3 (OCT 27) 4.6 (OCT 18) 4.8 (OCT 17) Cl L 92 (OCT 28) L 88 (OCT 27) L 95 (OCT 26) L 90 (OCT 25) CO2 31 (OCT 28) H 34 (OCT 27) 24 (OCT 26) 31 (OCT 25) BUN H 48 (OCT 28) H 42 (OCT 27) H 36 (OCT 26) H 36 (OCT 25) Cr 1.00 (OCT 28) H 1.10 (OCT 27) 1.00 (OCT 26) 1.00 (OCT 25) Glu R 93 (OCT 28) 104 (OCT 27) 105 (OCT 18) H 151 (OCT 25) Ca 9.4 (OCT 28) 9.0 (OCT 27) 8.9 (OCT 26) 8.6 (OCT 25) Lactic 0.8 (OCT 21) AST 18 (OCT 21) ALT 27 (OCT 21) ALK P 66 (OCT 21) T Bili 0.8 (OCT 21) PTN L 6.2 (OCT 21) ALB L 3.0 (OCT 21) Troponin H 0.079 (OCT 21) Radiology Results (Last 48 hours) [id number] -- 10/20/2018 23:00 CT Abdomen Pelvis WO (10/28/2018 11:11) Result: CT SCAN OF THE CHEST, ABDOMEN AND PELVIS 10/28/2018 10:05 AM HISTORY: Pneumonia, distension.COMPARISON: None.PROCEDURE: Axial images were obtained from the lung apex to the pubicsymphysis by computed tomography. This study was performed withtechniques to keep radiation doses as low as reasonably achievable,(ALARA). Individualized dose reduction techniques using automatedexposure control or adjustment of mA and/or kV according to the patientsize were employed.FINDINGS: CHEST: A pacemaker overlies the left chest. There is no axillaryadenopathy. There is no hilar or mediastinal adenopathy . Heart size is normal . There is a small pericardial effusion. There is a small rightpleural effusion.. There is a 5 mm nodule in the right mid lung field.Focal right lower lobe consolidation is noted.ABDOMEN: The liver is normal . The spleen is unremarkable . Noadrenal mass is present . The pancreas is normal . The kidneysdemonstrate a 15 mm hypodense lesion in the upper pole of the rightkidney. The left kidney is mildly atrophic. There is no nephrolithiasisor hydronephrosis. The aorta is normal in caliber . There is no freefluid or adenopathy . The patient is status post cholecystectomy.PELVIS: The appendix is not identified . The urinary bladder isdistended. There is no significant free fluid or adenopathy . Thepatient is status post hysterectomy. There is diverticulosis of thesigmoid colon.IMPRESSION: 5 mm nodule in the right mid lung.Right lower lobe consolidation and small right pleural effusion.Follow-up to complete resolution recommended.No nephrolithiasis or hydronephrosis.Images reviewed, interpreted, and dictated by Dr. Figueroa Jasso.Transcribed by Karla Almanzar (R).I have personally viewed, interpreted and dictated the examination. Ihave read and agree with the above final transcribed report. CT Chest WO (10/28/2018 11:11) Result: CT SCAN OF THE CHEST, ABDOMEN AND PELVIS 10/28/2018 10:05 AM HISTORY: Pneumonia, distension.COMPARISON: None.PROCEDURE: Axial images were obtained from the lung apex to the pubicsymphysis by computed tomography. This study was performed withtechniques to keep radiation doses as low as reasonably achievable,(ALARA). Individualized dose reduction techniques using automatedexposure control or adjustment of mA and/or kV according to the patientsize were employed.FINDINGS: CHEST: A pacemaker overlies the left chest. There is no axillaryadenopathy. There is no hilar or mediastinal adenopathy . Heart size is normal . There is a small pericardial effusion. There is a small rightpleural effusion.. There is a 5 mm nodule in the right mid lung field.Focal right lower lobe consolidation is noted.ABDOMEN: The liver is normal . The spleen is unremarkable . Noadrenal mass is present . The pancreas is normal . The kidneysdemonstrate a 15 mm hypodense lesion in the upper pole of the rightkidney. The left kidney is mildly atrophic. There is no nephrolithiasisor hydronephrosis. The aorta is normal in caliber . There is no freefluid or adenopathy . The patient is status post cholecystectomy.PELVIS: The appendix is not identified . The urinary bladder isdistended. There is no significant free fluid or adenopathy . Thepatient is status post hysterectomy. There is diverticulosis of thesigmoid colon.IMPRESSION: 5 mm nodule in the right mid lung.Right lower lobe consolidation and small right pleural effusion.Follow-up to complete resolution recommended.No nephrolithiasis or hydronephrosis.Images reviewed, interpreted, and dictated by Dr. Figueroa Jasso.Transcribed by Karla Almanzar (R).I have personally viewed, interpreted and dictated the examination. Ihave read and agree with the above final transcribed report. 10/21/18 echo: Normal sized left ventricle. Mild left ventricular hypertrophy. Visually estimated ejection fraction 15-20%. Severe left ventricular systolic dysfunction. Septal motion c/w conduction abnormality. No masses or thrombi are seen. Trace pericardial effusion. Impression and Plan leukocytosis worsenig stillcoughing high risk for pna and recent AICD but ;looks ok sputum cx requested , the AICD pocket is ok CT chest noted blood cx ntg appreciate ID consultation cont doxy for now will moniotr inhouse RLL consolidation PVC multiple on tele d/w dr mason will monitor her her as not able to increase her bb w orthostatic and hypotension orthostatic hypotension better s/p decrease her meds and severe MR with aggressive diuresis s/p decreae diouresis soco compresing hose stable Acute respiratory failure hypoxic secondary to above [...] continue home prn valium possible discharge roxana am d/w rn time spent: 29 min Electronically signed by [facility], [facility] [place] Conversion Crown Wheel Assembler Cerner at 11/28/2022 5:33 PM CDT documented in this encounter Plan of Treatment Upcoming Encounters Date Type Department Care Team (Late st Contact Info) Description 08/23/2025 12:45 PM EST Office Visit [facility] Electrophysiology [address] [place] [phone] Vik Corcoran MD [address] [place] [address] [address] documented as of this encounter Visit Diagnoses Not on filedocumented in this encounter Care Teams Education Program Coordinator Relationship Specialty Start Date End Date Alfred Cantu MD [address] [place] [address] PCP - General General Internal Medicine 08/29/22 Lyndsey Key MD [address] [place] [address] [id number] Cna Interventional Cardiology 08/29/22 Vik Corcoran MD [address] [place] [address] [address] [facility] Electrophysiology 05/19/24 documented as of this encounter
--- OUTSIDE RECORDS SUMMARY | 2025-02-18 10:42 | XMS_ITS | Encounter Summary ---
Author Organization [employer] ([place], [place], [place], [place]) Address [address] [place] [address] Care Team Providers Care Relief Manager Name Role Phone Alfred Cantu MD Primary Care Provider [phone] Lyndsey Key MD Unavailable [phone] Vik Corcoran MD Unavailable Encounter Details Date Type Department Care Team (Late st Contact Info) Description 10/23/2018 Transcribed Document [facility] [place] [facility] [place] [address] ProviderRashard MD [address] [place] [address] Social History Tobacco Use Types Packs/Day Years Used Date Smoking Tobacco: Never Assessed Comments Unknown Sex and Gender Information Value Date Recorded Sex Assigned at Not on file Legal Sex Female 1:15 PM CDT Gender Identity Not on file Sexual Orientation Not on file documented as of this encounter Miscellaneous Notes * Cerner Conversion Note - Rashard ProviderMD - 10/23/2018 11:04 PM CDT Rapid Response Team Documentation Entered On: 10/23/2018 23:05 EDT Performed On: 10/23/2018 23:04 EDT by JENNIFER VAN RN Rapid Response Event Rapid Response Team Initiation Reason : Positive SIRS screen Rapid Response Team Initiation Reason Details : MD notified according to form browser 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 Rapid Response Medical Background : Allergic asthma [...] Drug Rapid Response Recent Vital Signs : 10/23/2018 21:01 Systolic Blood Pressure 148 10/23/2018 21:01 Diastolic Blood Pressure 92 10/23/2018 21:01 Heart Rate Monitored 92 10/23/2018 21:01 Respiratory Rate 16 10/23/2018 21:01 Temperature, Fahrenheit 98.8 10/23/2018 21:01 Oxygen Saturation 98 Rapid Response Recent Lab Results : 10/23/2018 03:05 Sodium Level LOW 125 (136-146) 10/23/2018 03:05 Potassium Level 4.4 (3.5-5.1) 10/21/2018 05:27 Calcium Ionized LOW 1.04 (1.12-1.32) 10/23/2018 03:05 Calcium Level 8.7 (8.4-10.1) 10/23/2018 03:05 Magnesium Level HI 2.5 (1.5-2.4) 10/23/2018 03:05 Chloride Level LOW 88 (102-112) 10/23/2018 03:05 Carbon Dioxide Level 28 (21-32) 10/23/2018 03:05 Blood Urea Nitrogen 21 (7-22) 10/23/2018 03:05 Creatinine Level 0.90 (0.55-1.02) 10/23/2018 03:05 Hgb 12.4 (11.2-15.7) 10/23/2018 03:05 Hct 37.9 (34.1-44.9) 10/23/2018 03:05 RBC 4.96 (3.93-5.22) 10/23/2018 03:05 WBC HI 18.3 (4.5-10.5) 10/23/2018 03:05 Platelet Count 225 (163-369) 10/21/2018 05:27 Lactic Acid Level 0.8 [...] 38 kg/m2 High (10/20/18 23:04:00) Rapid Response Relief Manager #1 : JENNIFER VAN, RN JENNIFER VAN RN - 10/23/2018 23:04 EDT Electronically signed by Micheal Walls Conversion Casting Wheel Operator Helper Cerner at 11/28/2022 5:36 PM CDT documented in this encounter Plan of Treatment Upcoming Encounters Date Type Department Care Team (Late st Contact Info) Description 08/23/2025 12:45 PM EST Office Visit [facility] Electrophysiology [address] [place] [phone] [place] [address] [place] [address] [address] [place] [phone] documented as of this encounter Visit Diagnoses Not on filedocumented in this encounter Care Teams Relief Manager Relationship Specialty Start Date End Date Alfred Cantu MD [address] [place] [address] PCP - General General Internal Medicine 08/29/22 [place] [address] [place] [address] [address] [place], [place] [phone] Skilled Nursing Professional Interventional Cardiology 08/29/22 Vik Corcoran MD [address] [facility] [address] [place] [address] Skilled Nursing Professional Electrophysiology 05/19/24 documented as of this encounter
--- OUTSIDE RECORDS SUMMARY | 2025-02-18 10:42 | XMS_ITS | Encounter Summary ---
Author Organization [employer] ([place], [place], [place], [place]) Address [address] [place] [address] Care Team Providers Care Digital Account Supervisor Name Role Phone Alfred Cantu MD Primary Care Provider [phone] Lyndsey Key MD Unavailable [phone] Vik Corcoran MD Unavailable Encounter Details Date Type Department Care Team (Late st Contact Info) Description 10/30/2018 Transcribed Document [facility] [place] [facility] [place] [address] ProviderRashard MD [address] [place] [address] Social History Tobacco Use Types Packs/Day Years Used Date Smoking Tobacco: Never Assessed Comments Unknown Sex and Gender Information Value Date Recorded Sex Assigned at Not on file Legal Sex Female 1:15 PM CDT Gender Identity Not on file Sexual Orientation Not on file documented as of this encounter Miscellaneous Notes * Cerner Conversion Note - Rashard ProviderMD - 10/30/2018 9:50 AM CDT Patient: KATHY CARTER Age: 78 years Sex: Female : 1940 Associated Diagnoses: None Author: CLARE LIVINGSTON MD-INF History of Present Illness 10/28/18 - Initial hospital visit for this very pleasant 78 yr old with CC high WBC has hx of CM Recently admitted to [facility] for 3 days - then sent here [...] rash, nausea, diarrhea, dysuria. has mild cough. Review of Systems Constitutional: Fever, Chills, Sweats, [...] PRN: Anxiety doxycycline: 100 mg, Oral, BID heparin: 5,000 Units, SubCutaneous, Q8HInt magnesium sulfate: [...] 500 mg oral tablet: 1 Tab, Oral, [id number], for 7 Day(s), 7 Tab, 0 Refill(s) [...] History of obstructive sleep apnea / IMO [id number] / Confirmed, Active Problems (9) Allergic asthma Apnea, sleep Chronic GERD Dyspnea H/O hyperlipidemia H/O mitral valve insufficiency History of obstructive sleep apnea Hx of obesity Hypertension Histories Past Medical History: No active or resolved past medical history items have been selected or recorded. Family History: No family history items have been selected or recorded. Procedure history: CHOLECYSTECTOMY (67710). hysterectomy. sinus surgery. cataract surgery - bilateral. [...] hrs) Last Charted Minimum Maximum Temp 97.7 (OCT 30 06:20) 97.7 (OCT 30 06:20) 98.4 (OCT 29 22:25) Mon HR 100 (OCT 30 09:49) 46 (OCT 30 06:23) 102 (OCT 30 06:25) Resp Rate 20 (OCT 30 06:20) 16 (OCT 29 17:29) 20 (OCT 30 06:20) SBP 127 (OCT 30 09:49) 109 (OCT 30 06:25) H 142 (OCT 29 22:25) DBP 69 (OCT 30 09:49) L 53 (OCT 29 22:25) H 94 (OCT 30 06:20) MAP 81 (OCT 30 09:49) 81 (OCT 30 09:49) 107 (OCT 30 06:20) SpO2 95 (OCT 30 08:48) 94 (OCT 29 11:09) 96 (OCT 29 14:30) General: Alert and oriented, No acute distress. [...] Labs (Last four charted values) WBC C 39.8 (OCT 30) C 39.7 (OCT 29) C 34.7 (OCT 28) H 23.9 (OCT 27) HB 11.7 (OCT 30) 12.2 (OCT 29) 12.7 (OCT 28) 12.0 (OCT 27) HCT 35.3 (OCT 30) 36.9 (OCT 29) 38.6 (OCT 28) 36.7 (OCT 27) Plt 169 (OCT 30) 174 (OCT 29) 187 (OCT 20) 185 (OCT 27) Na L 126 (OCT 30) L 128 (OCT 28) L 129 (OCT 27) L 129 (OCT 26) K 4.6 (OCT 30) 5.1 (OCT 28) 4.3 (OCT 27) 4.6 (OCT 26) Cl L 88 (OCT 30) L 92 (OCT 28) L 88 (OCT 27) L 95 (OCT 26) CO2 30 (OCT 30) 31 (OCT 28) H 34 (OCT 27) 24 (OCT 26) BUN H 44 (OCT 30) H 48 (OCT 28) H 42 (OCT 27) H 36 (OCT 26) Cr H 1.20 (OCT 30) 1.00 (OCT 28) H 1.10 (OCT 27) 1.00 (OCT 26) Glu R 91 (OCT 30) 93 (OCT 28) 104 (OCT 27) 105 (OCT 26) Ca 9.0 (OCT 30) 9.4 (OCT 28) 9.0 (OCT 27) 8.9 (OCT 26) Lactic 0.8 (OCT 21) AST 18 (OCT [...] Will check a UA and CT abdomen Doxycycline Long discussion with pt WBC worse, but pt non-toxic and negative cultures UM discussed with staff If discharged will need close follow-up - can see next week if local Physician can't Electronically signed by [facility], [facility] Conversion Classroom Coordinator Cerner at 11/28/2022 5:33 PM CDT documented in this encounter Plan of Treatment Upcoming Encounters Date Type Department Care Team (Late st Contact Info) Description 08/23/2025 12:45 PM EST Office Visit [facility] Electrophysiology [address] [place] [address] [place] [address] [place] [address] [address] [place] [address] documented as of this encounter Visit Diagnoses Not on filedocumented in this encounter Care Teams Digital Account Supervisor Relationship Specialty Start Date End Date Alfred Cantu MD [address] [place] [address] PCP - General General Internal Medicine 08/29/22 Lyndsey Key MD [address] [place] [address] [address] [place] [phone] Wraparound Facilitator Interventional Cardiology 08/29/22 Vik Corcoran MD [address] [place] [address] [address] [place] [address] [phone] Wraparound Facilitator Electrophysiology 05/19/24 documented as of this encounter
--- OUTSIDE RECORDS SUMMARY | 2025-02-18 10:42 | XMS_ITS | Encounter Summary ---
Author Organization [employer] ([place], [place], [place], [place]) Address [address] [place] [address] Care Team Providers Care Manuscript Editor Name Role Phone Alfred Cantu MD Primary Care Provider [phone] Lyndsey Key MD Unavailable [phone] Vik Corcoran MD Unavailable Encounter Details Date Type Department Care Team (Late st Contact Info) Description 10/23/2018 Transcribed Document [facility] [place] Family Medicine [facility] [place] [address] ProviderRashard MD [address] [place] [id number] Social History Tobacco Use Types Packs/Day Years Used Date Smoking Tobacco: Never Assessed Comments Unknown Sex and Gender Information Value Date Recorded Sex Assigned at Not on file Legal Sex Female 1:15 PM CDT Gender Identity Not on file Sexual Orientation Not on file documented as of this encounter Miscellaneous Notes * Cerner Conversion Note - Rashard Gonzalez MD - 10/23/2018 4:51 AM CDT Sepsis Screening Tool Entered On: 10/23/2018 5:10 EDT Performed On: 10/23/2018 4:51 EDT by Alba Smallwood Rn Provider Notification Provider Notified of Concerns/Results : SIRS/Sepsis Alert Provider Notified of : Nurse concerns Provider Response : No new orders Provider Notified Name : AKHIL MEI MD Provider Notified Time : 10/23/2018 5:10 EDT Rapid Response Team Call Comment : notified BILLIARD TABLE MECHANIC no new orders Alba Smallwood Rn - 10/23/2018 5:09 EDT Electronically signed by Kavita, [facility] Conversion Moving Van Driver Cerner at 11/28/2022 5:37 PM CDT documented in this encounter Plan of Treatment Upcoming Encounters Date Type Department Care Team (Late st Contact Info) Description 08/23/2025 12:45 PM EST Office Visit [facility] Electrophysiology [address] [place] [phone] Vik Corcoran MD [address] [place] [address] [address] [place] [address] [phone] documented as of this encounter Visit Diagnoses Not on filedocumented in this encounter Care Teams Manuscript Editor Relationship Specialty Start Date End Date Alfred Cantu MD [address] [place] [address] PCP - General General Internal Medicine 08/29/22 Lyndsey Key MD [address] [place] [address] [address] Spanish Tutor Interventional Cardiology 08/29/22 Vik Corcoran MD [address] [place] [address] [id number] Spanish Tutor Electrophysiology 05/19/24 documented as of this encounter
--- OUTSIDE RECORDS SUMMARY | 2025-02-18 10:42 | XMS_ITS | Encounter Summary ---
Author Organization [employer] ([place], [place], [place], [place]) Address [address] [place] [address] Care Team Providers Care Retail Pharmacy Technician Name Role Phone Alfred Cantu MD Primary Care Provider [phone] Lyndsey Key MD Unavailable Vik Corcoran MD Unavailable Encounter Details Date Type Department Care Team (Late st Contact Info) Description 10/02/2021 Transcribed Document [facility] Family Medicine [address] [place] [address] ProviderRashard MD [address] [place] [address] Social History Tobacco Use Types Packs/Day Years Used Date Smoking Tobacco: Never Assessed Family and Community Support Answer Sebastian e Recorded Help with Day to Day Activities Not on file 08/29/2023 Feeling Lonely or Isolated Not on file 08/29 Educational Attainment Answer Date Ezra rded Speak language other than Kyrgyz at home Not on file 08/29/2023 Want [...] Conversion Note - Historical ProviderMD - 10/02/2021 8:10 AM MILLING GENERAL SUPERINTENDENT Pre Procedure Adult Entered On: 10/02/2021 8:14 EST Performed On: 10/02/2021 8:10 EST by MAGDY DARLING RN Height and Weight, Clinical Dosing Height Source : Stated Height Entry Format : Mason Height, Feet : 5 ft(Converted to: 152 cm, 60 Inch) Height, Inches : 0 Inch(Converted to: 0 ft 0 Inch, 0.00 cm) Clinical Height : 152.4 cm Weight Source : Standing scale Weight Entry Format : Mason Clinical Dosing Weight : 86.36 kg Weight, Pounds : 190 lb Body Surface Area (BSA) : 1.83 m2 Body Mass Index : 37.2 kg/m2 ([place]) Badger Body Weight : 45 kg MAGDY DARLING RN - 10/02/2021 8:10 EST Health Histories Smoking Status : Never (less than 100 in lifetime; none in last 30 days) Smokeless Tobacco Status : Never MAGDY DARLING RN - 10/02/2021 8:10 EST Social History (As Of: 10/02/2021 08:14:35 EST) Tobacco: Smoking Status Never smoker. (Last Updated: 07/08/2017 07:41:27 EST by ISRA JONES RN) Alcohol: Alcohol Use History No. (Last Updated: 07/08/2017 07:41:33 EST by ISRA JONES RN) Substance Abuse: Drug Use Hx: No. Use in Last 12 Months: No. (Last Updated: 07/08/2017 07:41:39 EST by ISRA JONES RN) Infectious Disease History Does patient have symptoms of COVID-19? : No Has the Patient Been Tested for COVID-19 in the last 14 days? : Yes, Patient stated results Negative Does the Patient state known exposure to a COVID-19 positive case in the last 14 days? : No Patient Vaccinated for COVID-19 : Partially vaccinated or need booster Does Patient want a COVID-19 Vaccine? : No MAGDY DARLING RN - 10/02/2021 8:10 EST Infectious Disease Risk Screening Grid Cough < 2 wks of unknown origin : NO Cough > 2 weeks : NO Blood in Sputum : NO Fever or self-reported Fever : NO Rash of unknown origin : NO Headache : NO Stiff neck : NO Night Sweats : NO Unexplained Weight Loss : NO Diarrhea (3 episode per day) : NO MAGDY DARLING RN - 10/02/2021 8:10 EST Physical contact outside [place] in the last 30 days : No Hospitalized in Foreign Country : No Infectious Disease History : Chicken pox/Shingles, Measles, Mumps INF Disease TB Screening Calc : 0 INF Disease Recent Travel Calc : 0 MAGDY DARLING RN - 10/02/2021 8:10 EST COVID19 PreProcedure Screening Is this an Emergent or Add on Procedure? : No Date PreProcedure COVID-19 test known? : Yes Date of PreProcedure COVID-19 : 09/28/2021 EST Has patient been isolated since the test : No Exposed to COVID19 symptoms since test? : No MAGDY DARLING RN - 10/02/2021 8:10 EST Anesthesia/Transfusion History Family History of Anesthesia Reaction : No prior transfusion(s) Transfusion History : Prior anesthesia reaction Type of Anesthesia Reaction : Other: nausea and vomiting Family History of Anesthesia Reaction : None MAGDY DARLING RN - 10/02/2021 8:10 EST Functional Assessment Living Situation : Home Patient Lives With : Spouse Current Home Treatments : CPAP MAGDY DARLING RN - 10/02/2021 8:10 EST [place] Suicide Severity Rating Scale (C-SSRS) CSSRS Past Month Wish to be : No CSSRS Past Month Suicidal Thoughts : No CSSRS Lifetime Suicide Behavior : No Suicide Severity Rating Score : 0 Suicide Severity Rating : No Additional Care Required at this time MAGDY DARLING RN - 10/02/2021 8:10 EST Psychosocial History Currently in Unsafe Situation : No MAGDY DARLING RN - 10/02/2021 8:10 EST Advance Directive Patient has Advance Directive *Q : Yes, Advance Directive on file Advance Directive Type : Living will Copy Advance Directive Verified/on Chart : No MAGDY DARLING RN - 10/02/2021 8:10 EST Teaching/Learning Assessment Barriers To Learning : None evident Individuals Taught : Patient, Spouse Readiness to Learn : Cooperative Learning Style Preferences Patient : Verbal explanation Learning Style Preferences Family : Verbal explanation MAGDY DARLING RN - 10/02/2021 8:10 EST Education Topics, Periop Preadmission Perioperative Education Grid Arrival Time/Place : Verbalizes understanding IV's : Verbalizes understanding NPO Status/Directions : Verbalizes understanding Pain Management : Verbalizes understanding Postoperative Care Preparations : Verbalizes understanding Responsible Adult : Verbalizes understanding Take/Hold Medications Pre-Procedure : Verbalizes understanding MAGDY DARLING RN - 10/02/2021 8:10 EST General Info Want Family/Rep/Phys Notified of Admit : No Emergency Contact #1 : Braxton Jimenez Emergency Contact #1 Emergency Contact #1 Relationship : Spouse Emergency Contact #2 : . Emergency Contact #2 Phone Number : . Emergency Contact #2 Relationship : . Primary Language : Kyrgyz Preferred Communication Mode : Verbal Communication Barrier : None Hardwood Floor Installer Needed : No MAGDY DARLING RN - 10/02/2021 8:10 EST Vital Measurements Temperature Source : Temporal artery scanning Temperature Mode : Fahrenheit Temperature, Fahrenheit : 97.4 Deg F Clinical Temperature, C : 36.3 Deg C Heart Rate, Apical : 69 bpm Systolic Blood Pressure : 176 mmHg ([place]) Diastolic Blood Pressure : 89 mmHg Oxygen Saturation : 96 % Oxygen Therapy Mode : Room air MAGDY DARLING RN - 10/02/2021 8:10 EST Sleep Apnea Risk Assmt BiPAP/CPAP Ordered for Home Use : Yes Hx of Obstructive Sleep Apnea Diagnosis : Yes BiPAP/CPAP Used at Home : Yes Age over 50 Years Old : Yes Gender Male : No MAGDY DARLING RN - 10/02/2021 8:10 EST Arnoldo Scale Arnoldo Sensory Perception : No impairment Arnoldo Moisture : Rarely moist Arnoldo Activity : Walks occasionally Arnoldo Mobility : Slightly limited Arnoldo Nutrition : Adequate Arnoldo Friction and Shear : No apparent problem Arnoldo Score : 20 MAGDY DARLING RN - 10/02/2021 8:10 EST Pain Assessment Pain Assessment : Initial assessment Pain Scale Used : 0-10 Scale Location : Back MAGDY DARLING RN - 10/02/2021 8:10 EST Fall Risk Scales ABCs Fall Injury Risk Identification : Age ABC Fall Injury Risk : Moderate to high injury risk THOMAS Hx Falls Immediate/Within 3 Months : No Thomas Secondary Diagnosis : Yes THOMAS Use of Ambulatory Aid : Crutches/Cane/Walker THOMAS IV Therapy or IV Access : Yes Thomas Gait/Transferring : Weak Thomas Mental Status : Oriented to own ability Thomas Fall Risk Score : 60 THOMAS Fall Scale Risk Level : 46 or > High Risk [place] Fall Interventions : Adequate lighting, Assistive devices within reach, Bed in low position, Call device within reach, Fall prevention handout/education per facility policy, Frequent orientation to surroundings, Hourly comfort/safety rounds, Non-slip footwear, Personal items within reach, Reinforced to call for assistance before getting out of bed, Room free of clutter/spills, Upper side-rails up, Wheels locked, Wires/Cords secured MAGDY DARLING RN - 10/02/2021 8:10 EST Education Topics, Day of Surgery DayofSurgery Education Grid Anesthesia/Sedation : Verbalizes understanding Infection Risks : Verbalizes understanding IV's : Verbalizes understanding Medication Instructions : Verbalizes understanding Responsible Adult : Verbalizes understanding MAGDY DARLING RN - 10/02/2021 8:10 EST Valuables and Belongings Valuables and Belongings : Clothing Clothing : Common streetwear Clothing Disposition : Bedside, With family, Declines to send to security/safe MAGDY DARLING RN - 10/02/2021 8:10 EST Pain Scale Intensity : 7 MAGDY DARLING RN - 10/02/2021 8:10 EST Image 4 - Images currently included in the form version of this document have not been included in the text rendition version of the form. documented in this encounter Plan of Treatment Upcoming Encounters Date Type Department Care Team (Late st Contact Info) Description 08/23/2025 12:45 PM EST Office Visit [facility] Electrophysiology [address] [place] [address] [place] [address] [place] [address] [address] [place] [address] documented as of this encounter Visit Diagnoses Not on filedocumented in this encounter Care Teams Retail Pharmacy Technician Relationship Specialty Start Date End Date Alfred Cantu MD [address] [place] [facility] [address] [place] [address] PCP - General General Internal Medicine 08/29/22 Lyndsey Key MD [address] [place] [address] [address] [place], [place] [id number] Washing Tub Operator Interventional Cardiology 08/29/22 [place] [address] [place] [address] [address] Washing Tub Operator Electrophysiology 05/19/24 documented as of this encounter
--- OUTSIDE RECORDS SUMMARY | 2025-02-18 10:42 | XMS_ITS | Encounter Summary ---
Author Organization [employer] ([place], [place], [place], [place]) Address [address] [place] [address] Care Team Providers Care High School Hvac R Instructor Name Role Phone Alfred Cantu MD Primary Care Provider [phone] Lyndsey Key MD Unavailable [phone] Vik Corcoran MD Unavailable Encounter Details Date Type Department Care Team (Late st Contact Info) Description 10/27/2018 Transcribed Document [facility] [place] [facility] [place] [address] ProviderRashard MD [address] [place] [address] Social History Tobacco Use Types Packs/Day Years Used Date Smoking Tobacco: Never Assessed Comments Unknown Sex and Gender Information Value Date Recorded Sex Assigned at Not on file Legal Sex Female 1:15 PM CDT Gender Identity Not on file Sexual Orientation Not on file documented as of this encounter Miscellaneous Notes * Cerner Conversion Note - Rashard ProviderMD - 10/27/2018 1:50 PM CDT Sepsis Screening Tool Entered On: 10/27/2018 14:35 EDT Performed On: 10/27/2018 13:50 EDT by Roberta Ernandez, Rn Provider Notification Provider Notified of Concerns/Results : SIRS/Sepsis Alert Provider Response : Orders received Provider Notified Time : 10/27/2018 14:00 EDT Roberta Ernandez Rn - 10/27/2018 14:34 EDT Electronically signed by Kavita [facility] Conversion Services Rep Cerner at 11/28/2022 5:41 PM CDT documented in this encounter Plan of Treatment Upcoming Encounters Date Type Department Care Team (Late st Contact Info) Description 08/23/2025 12:45 PM EST Office Visit [facility] Electrophysiology [address] [place] [address] Vik Corcoran MD [address] [place] [address] [address] [place], [place] [id number] documented as of this encounter Visit Diagnoses Not on filedocumented in this encounter Care Teams High School Hvac R Instructor Relationship Specialty Start Date End Date Alfred Cantu MD [address] [place] [address] [place] [address] PCP - General General Internal Medicine 08/29/22 Lyndsey Key MD [address] [place] [address] [address] Emt Basic Interventional Cardiology 08/29/22 Vik Corcoran MD [address] [place] [address] [address] [place], [place] [id number] Emt Basic Electrophysiology 05/19/24 documented as of this encounter
--- OUTSIDE RECORDS SUMMARY | 2025-02-18 10:42 | XMS_ITS | Encounter Summary ---
Author Organization [employer] ([place], [place], [place], [place]) Address [address] [place] [address] Care Team Providers Care Glass Furnace Tender Name Role Phone Alfred Cantu MD Primary Care Provider [phone] Lyndsey Key MD Unavailable [phone] Vik Corcoran MD Unavailable Encounter Details Date Type Department Care Team (Late st Contact Info) Description 10/27/2018 Transcribed Document [facility] [place] [address] ProviderRashard MD [address] [place] [address] Social History Tobacco Use Types Packs/Day Years Used Date Smoking Tobacco: Never Assessed Comments Unknown Sex and Gender Information Value Date Recorded Sex Assigned at Not on file Legal Sex Female 1:15 PM CDT Gender Identity Not on file Sexual Orientation Not on file documented as of this encounter Miscellaneous Notes * Cerner Conversion Note - Rashard ProviderMD - 10/27/2018 1:31 PM CDT [address] , [place] [address] Patient Copy Patient Information: Name: KATHY JIMENEZ Current Date: 10/27/2018 13:31:54 : 1940 Patient Address: [address] [place], [place] [address] [address] Patient Attending Physician: CARMELLA MEI MD-INT Primary Care Provider: ZAY, NOT LISTED Primary Care Provider Phone: Discharge Diagnosis: Weight on Admission: 194 lb, 1 oz Weight at Discharge: 183 lb, 5 oz Comment: Follow-up Instructions: With: Address: When: [address] [place] [address] Business (1) Within 2 weeks Comments: You will have an incision check [...] Immunizations Documented During Stay: No Immunizations Found Worker's Compensation Paperwork Completed: No Heart Failure [...] Follow these instructions at home: Medicines??? Take rgbc-cax-hppubde and prescription medicines only as told by [...] and water are not available, use hand binding cementer french cord. ? Change your dressing as told by [...] radio towers. ??? Do notuse amateur ( [employer]King ) radio equipment or electric ( arc [...] 12/08/2007 Document Revised: 04/21/2017 Document Reviewed: 03/06/2015 [employer] Interactive Patient Education ? 2017 [employer]. Smoking Hazards Smoking cigarettes is extremely [...] contain harmful chemicals. FOR MORE INFORMATION ??? [place] [employer] Association: www.lung.org ??? [place] Cancer Society: www.cancer.org This information is not intended to replace advice given to you by your health care provider. Make sure you discuss any questions you have with your health care provider. Document Released: 09/04/2005 Document Revised: 11/18/2016 Document Reviewed: 01/17/2014 [employer] Interactive Patient Education ? 2017 [employer]. Heart-Healthy Eating Plan Many factors influence [...] foods can I eat? Grains Breads, including Thai, white, serenity, wheat, raisin, rye, oatmeal, and Mongolian. Tortillas that are neither fried nor made with lard or trans fat. Low-fat rolls, including hotdog and hamburger buns and Danish muffins. Biscuits. Muffins. Waffles. Pancakes. Light popcorn. [...] cheese. Whole milk cheeses, including blue (henry), [place], Brie, Hayes, Bahamian, Havarti, Slovenian, cheddar, Camembert, and [place]. Whole or 2% milk that is liquid, [...] that has suet, meat fat, or shortening. [place] butter, hydrogenated oils, palm oil, coconut oil, [...] 05/06/2009 Document Revised: 02/14/2017 Document Reviewed: 01/19/2015 [employer]str Interactive Patient Education ? 2017 [employer]. How to Take a Pulse Your pulse [...] 02/01/2004 Document Revised: 02/14/2017 Document Reviewed: 12/31/2016 [employer] Interactive Patient Education ? 2017 [employer]. How to Take Your Blood Pressure [...] 09/22/2014 Elsevier Interactive Patient Education ? 2017 [employer]. Cardiomyopathy, Adult Cardiomyopathy is a long-term [...] Other treatments may include cardiac resynchronization therapy (DIRECTOR MEDICAL SAFETY) or a left ventricular assist device (LVAD). [...] to manage stress. General instructions ??? Take zcnm-smo-bohcynp and prescription medicines only as told by [...] 10/10/2005 Document Revised: 03/25/2017 Document Reviewed: 01/27/2017 [employer]str Interactive Patient Education ? 2017 [employer]. Medication Leaflets: bumetanide (oral/injection) (huong mccain) Bumex [...] may report side effects to FDA at 4-215-BTA-7477. What other drugs will affect bumetanide? Bumetanide [...] drugs may affect bumetanide, including prescription and pklg-zgq-ieszkyb medicines, vitamins, and herbal products. Not all [...] to ensure that the information provided by [employer]. ('Mult[employer]') is accurate, up-to-date, and complete, but no guarantee is made to that effect. Drug information contained herein may be time sensitive. [employer] information has been compiled for use by healthcare practitioners and consumers in the [place] and therefore [employer] does not warrant that uses outside of the [place] are appropriate, unless specifically indicated otherwise. [employer] drug information does not endorse drugs, diagnose patients or recommend therapy. [employer] drug information is an informational resource designed [...] effective or appropriate for any given patient. [employer] does not assume any responsibility for any aspect of healthcare administered with the aid of information [facility] provides. The information contained herein is not intended to cover all possible uses, directions, precautions, warnings, drug interactions, allergic reactions, or adverse effects. If you have questions about the drugs you are taking, check with your doctor, nurse or pharmacist. Copyright 4786-6940 [employer]. Version: 7.01. Revision Date: 08/13/2018. carvedilol (PRABHJOT [...] may report side effects to FDA at 5-219-JST-6542. What other drugs will affect carvedilol? Other drugs may interact with carvedilol, including prescription and filu-eok-dohajvf medicines, vitamins, and herbal products. Tell each [...] to ensure that the information provided by [employer]. ('[employer]') is accurate, up-to-date, and complete, but no guarantee is made to that effect. Drug information contained herein may be time sensitive. [employer] information has been compiled for use by healthcare practitioners and consumers in the [place] and therefore [employer] does not warrant that uses outside of the [place] are appropriate, unless specifically indicated otherwise. [employer] drug information does not endorse drugs, diagnose patients or recommend therapy. [employer] drug information is an informational resource designed [...] effective or appropriate for any given patient. [employer] does not assume any responsibility for any aspect of healthcare administered with the aid of information [employer] provides. The information contained herein is not intended to cover all possible uses, directions, precautions, warnings, drug interactions, allergic reactions, or adverse effects. If you have questions about the drugs you are taking, check with your doctor, nurse or pharmacist. Copyright 8360-5018 [employer]. Version: 15.. Revision Date: 08/30/2013. albuterol and ipratropium (inhalation) (al FERNANDO mcneil ol and LIZA crum) Combivent Respimat, [...] lights; ?? painful or difficult urination; or documented in this encounter Plan of Treatment Upcoming Encounters Date Type Department Care Team (Late st Contact Info) Description 08/23/2025 12:45 PM EST Office Visit [facility] Electrophysiology [address] [place] [phone] [place] [address] [place] [address] [address] [place] [id number] documented as of this encounter Visit Diagnoses Not on filedocumented in this encounter Care Teams Glass Furnace Tender Relationship Specialty Start Date End Date Alfred Cantu MD [address] [place] [address] PCP - General General Internal Medicine 08/29/22 [place] [address] [place] [address] [address] [place] [address] Bottle Gauger Interventional Cardiology 08/29/22 Vik Corcoran MD [address] [facility] [place] [address] Bottle Gauger Electrophysiology 05/19/24 documented as of this encounter
--- OUTSIDE RECORDS SUMMARY | 2025-02-18 10:42 | XMS_ITS | Encounter Summary ---
Author Organization [employer] ([place], [place], [place], [place]) Address [address] [place] [address] Care Team Providers Care Energy Systems Engineer Name Role Phone Alfred Cantu MD Primary Care Provider [phone] Lyndsey Key MD Unavailable Vik Corcoran MD Unavailable Encounter Details Date Type Department Care Team (Late st Contact Info) Description 10/23/2018 Transcribed Document [facility] Family Medicine [facility] [place] [address] ProviderRashard MD [address] [place] [address] Social History Tobacco Use Types Packs/Day Years Used Date Smoking Tobacco: Never Assessed Comments Unknown Sex and Gender Information Value Date Recorded Sex Assigned at Not on file Legal Sex Female 1:15 PM CDT Gender Identity Not on file Sexual Orientation Not on file documented as of this encounter Miscellaneous Notes * Cerner Conversion Note - Rashard ProviderMD - 10/23/2018 2:00 AM CDT Academic Interventionist Details Entered On: 10/23/2018 3:02 EDT Performed On: 10/23/2018 2:00 EDT by Alba Smallwood Rn Order [...] Line : No Alba Smallwood Rn - 10/23/2018 3:02 EDT Electronically signed by Kavita [facility] Conversion Middle School Director Cerner at 11/28/2022 5:35 PM CDT documented in this encounter Plan of Treatment Upcoming Encounters Date Type Department Care Team (Late st Contact Info) Description 08/23/2025 12:45 PM EST Office Visit [facility] Electrophysiology [address] [place] [phone] Vik Corcoran MD [address] [place] [address] [address] [place] [id number] documented as of this encounter Visit Diagnoses Not on filedocumented in this encounter Care Teams Energy Systems Engineer Relationship Specialty Start Date End Date Alfred Cantu MD [address] [place] [address] PCP - General General Internal Medicine 08/29/22 Lyndsey Key MD [address] [place] [address] [address] Derivatives Trader Interventional Cardiology 08/29/22 Vik Corcoran MD [address] [place] [address] [id number] Derivatives Trader Electrophysiology 05/19/24 documented as of this encounter
--- OUTSIDE RECORDS SUMMARY | 2025-02-18 10:42 | XMS_ITS | Encounter Summary ---
Author Organization [employer] ([place], [place], [place], [place]) Address [address] [place] [address] Care Team Providers Care Tennis Instructor Name Role Phone Alfred Cantu MD Primary Care Provider [phone] Lyndsey Key MD Unavailable [phone] Vik Corcoran MD Unavailable Encounter Details Date Type Department Care Team (Late st Contact Info) Description 10/27/2018 Transcribed Document [facility] [place] Family Medicine [facility] [place] [address] ProviderRashard MD [address] [place] [address] Social History Tobacco Use Types Packs/Day Years Used Date Smoking Tobacco: Never Assessed Comments Unknown Sex and Gender Information Value Date Recorded Sex Assigned at Not on file Legal Sex Female 1:15 PM CDT Gender Identity Not on file Sexual Orientation Not on file documented as of this encounter Miscellaneous Notes * Cerner Conversion Note - Rashard ProviderMD - 10/27/2018 5:00 AM CDT Chart Check - Review Order Profile Entered On: 10/27/2018 5:17 EDT Performed On: 10/27/2018 5:00 EDT by Lise Thorne RN Chart Check Chart Reviewed Date and Time : 10/27/2018 5:17 EDT Powerplans Initiated/Discontinued as Appropriate : Yes All Active Orders Reviewed : Yes Lise Thorne RN - 10/27/2018 5:17 EDT Electronically signed by [facility] Conversion Section Crews Activities Clerk Cerner at 11/28/2022 5:41 PM CDT documented in this encounter Plan of Treatment Upcoming Encounters Date Type Department Care Team (Late st Contact Info) Description 08/23/2025 12:45 PM EST Office Visit [facility] Electrophysiology [address] [place] [address] [place] [address] [place] [address] [address] [place] [address] documented as of this encounter Visit Diagnoses Not on filedocumented in this encounter Care Teams Tennis Instructor Relationship Specialty Start Date End Date Alfred Cantu MD [address] [place] [address] [place] [address] PCP - General General Internal Medicine 08/29/22 [place] [address] [place] [address] [address] [place] [address] Aoc Director Combat Plans Officer Interventional Cardiology 08/29/22 Vik Corcoran MD [address] [place] [address] [address] [place], [place] [id number] Aoc Director Combat Plans Officer Electrophysiology 05/19/24 documented as of this encounter
--- OUTSIDE RECORDS SUMMARY | 2025-02-18 10:42 | XMS_ITS | Encounter Summary ---
Author Organization [employer] ([place], [place], [place], [place]) Address [address] [place] [address] Care Team Providers Care Cloth Printer Helper Name Role Phone Alfred Cantu MD Primary Care Provider [phone] Lyndsey Key MD Unavailable Vik Corcoran MD Unavailable Encounter Details Date Type Department Care Team (Late st Contact Info) Description 10/27/2018 Transcribed Document [facility] [address] ProviderRashard MD [address] [place] [address] Social History Tobacco Use Types Packs/Day Years Used Date Smoking Tobacco: Never Assessed Comments Unknown Sex and Gender Information Value Date Recorded Sex Assigned at Not on file Legal Sex Female 1:15 PM CDT Gender Identity Not on file Sexual Orientation Not on file documented as of this encounter Miscellaneous Notes * Cerner Conversion Note - Rashard ProviderMD - 10/27/2018 2:20 PM CDT Patient: KATHY CARTER Age: 78 years Sex: Female : 1940 Associated Diagnoses: None Author: JOSE MEDRANO MD Subjective Breathing is better, still coughing, on 2 L oxygen Good urine output, creatinine stable sodium is better Afebrile had significant orthostatic hypotension when worked w PT No nausea no vomiting No chest pain, No dysuria Objective Intake and Output Intake & Output Totals Last 24 Hours (7a-7a) Intake (4 Events) Oral Fluids (550 mL) Output (0 Events) No output events found in the last 24 hours. Input Total: 550 mL Output Total: 0 mL Balance: 550 mL VS/Measurements Vitals Signs (last 24 hrs) Last Charted Minimum Maximum Temp 98.4 (OCT 27 10:05) 97.4 (OCT 27 06:00) 98.4 (OCT 27 10:05) Mon HR 96 (OCT 27 13:48) 44 (OCT 26 22:12) 100 (OCT 27 10:05) Resp Rate 18 (OCT 27 06:00) 18 (OCT 26 22:12) 20 (OCT 26 19:02) SBP L 76 (OCT 27 13:48) L 76 (OCT 27 13:48) 129 (OCT 27 02:41) DBP L 46 (OCT 27:48) L 46 (OCT 27:48) 87 (OCT 27 06:00) MAP 54 (OCT 27 13:48) 54 (OCT 27 13:48) 94 (OCT 27 06:00) SpO2 L 87 (OCT 27 13:48) L 87 (OCT 27 13:48) 100 (OCT 27 06:00) General: Alert and oriented, No acute distress. Eye: Pupils are equal, round and reactive to light, Normal conjunctiva. HENT: Normocephalic, Normal hearing, tongue is moist with no obvious thrush seen. . Pacemaker incision with no l bleed, minimal subcutaneous hematoma, Respiratory: on NC, occasional wheezing, no rhonchi. Cardiovascular: Normal rate, Regular rhythm, No murmur, trace LE edema. Gastrointestinal: Soft, Non-tender, Non-distended, Normal bowel sounds. Integumentary: Warm, Dry. Neurologic: Alert, Oriented. Psychiatric: Cooperative, Appropriate mood & affect. Results Review General results Interpretation: OCT 27 03:59 L 129 L 88 H 42 / 104 4.3 H 34 H 1.10 \ OCT 27 03:59 \ 12.0 / H 23.9 185 / 36.7 \ Labs (Last four charted values) WBC H 23.9 (OCT 27) H 18.9 (OCT 18) H 23.8 (OCT 17) H 29.3 (OCT 16) HB 12.0 (OCT 27) 13.3 (OCT 18) 11.6 (OCT 17) 11.6 (OCT 16) HCT 36.7 (OCT 27) 43.7 (OCT 18) 35.2 (OCT 17) 35.0 (OCT 16) Plt 185 (OCT 27) 170 (OCT 18) 196 (OCT 17) 253 (OCT 16) Na L 129 (OCT 27) L 129 (OCT 18) L 127 (OCT 17) L 127 (OCT 16) K 4.3 (OCT 27) 4.6 (OCT 18) 4.8 (OCT 17) 4.0 (OCT 16) Cl L 88 (OCT 27) L 95 (OCT 18) L 90 (OCT 17) L 87 (OCT 16) CO2 H 34 (OCT 27) 24 (OCT 18) 31 (OCT 17) 30 (OCT 16) BUN H 42 (OCT 27) H 36 (OCT 18) H 36 (OCT 17) H 35 (OCT 16) Cr H 1.10 (OCT 27) 1.00 (OCT 18) 1.00 (OCT 17) H 1.10 (OCT 16) Glu R 104 (OCT 27) 105 (OCT 18) H 151 (OCT 17) H 132 (OCT 16) Ca 9.0 (OCT 27) 8.9 (OCT 18) 8.6 (OCT 17) 8.8 (OCT 16) Lactic 0.8 (OCT 21) AST 18 (OCT 21) ALT 27 (OCT 21) ALK P 66 (OCT 21) T Bili 0.8 (OCT 21) PTN L 6.2 (OCT 21) ALB L 3.0 (OCT 21) Troponin H 0.079 (OCT 21) Radiology Results (Last 48 hours) [id number] -- 10/20/2018 23:00 CR Chest 1 Vw [...] seen. Trace pericardial effusion. Impression and Plan orthostatic hypotension will decrease her meds and severe MR with aggressive diuresis decreae diouresis soco compresing hose reevaluate later leukocytosis stillcoughing high risk for pna cxr 10-26 reviwed myself r ll opcity read as atelectais but she is afebrile was on steroid will hold on abx reopeat cbc noemi sputum cx Acute respiratory failure hypoxic secondary to above Continue oxygen to keep sat more than 92 Symptomatically treatment steroid taped decrease Diuresis, Chest x-ray on 10/24 noted with worsening bilateral perihilar opacity, repeat 10-24 likey atelectasi add spirometrey hyponatremia, poa, ongoing, better - Improving, continue monitor in face of [...] mucinex anxiety - continue home prn valium willhold discharge today recech orthostatic in am cbc in am d/w rn\ time spent: 29 min documented in this encounter Plan of Treatment Upcoming Encounters Date Type Department Care Team (Late st Contact Info) Description 08/23/2025 12:45 PM EST Office Visit [facility] Electrophysiology [address] [place] [address] [place] [address] [place] [address] [address] [place], [place] [id number] documented as of this encounter Visit Diagnoses Not on filedocumented in this encounter Care Teams Cloth Printer Helper Relationship Specialty Start Date End Date Alfred Cantu MD [address] [place] [address] PCP - General General Internal Medicine 08/29/22 [place] [address] [place] [address] [address] [place] [address] Program Manager Slp Interventional Cardiology 08/29/22 [place] [address] [place] [address] [address] [place], [place] [id number] Program Manager Slp Electrophysiology 05/19/24 documented as of this encounter
--- OUTSIDE RECORDS SUMMARY | 2025-02-18 10:42 | XMS_ITS | Encounter Summary ---
Author Organization [employer] ([place], [place], [place], [place]) Address [address] [place] [address] Care Team Providers Care Hand Riveter Name Role Phone Alfred Cantu MD Primary Care Provider Lyndsey Key MD Unavailable [phone] Vik Corcoran MD Unavailable Encounter Details Date Type Department Care Team (Late st Contact Info) Description 10/27/2018 Transcribed Document [facility] [place] Family Medicine [facility] [place] [address] ProviderRashard MD [address] [place] [address] Social History Tobacco Use Types Packs/Day Years Used Date Smoking Tobacco: Never Assessed Comments Unknown Sex and Gender Information Value Date Recorded Sex Assigned at Not on file Legal Sex Female 1:15 PM CDT Gender Identity Not on file Sexual Orientation Not on file documented as of this encounter Miscellaneous Notes * Cerner Conversion Note - Rashard ProviderMD - 10/27/2018 5:52 PM CDT [address] , [place] [address] Patient Copy Patient Information: Name: KATHY CARTER Current Date: 10/27/2018 17:52:29 : 1940 Patient Address: [address] [place], [place] [address] [address] Patient Attending Physician: CARMELLA MEI MD-INT Primary [...] assistance finding a family MD please call [phone]. With: Address: When: NAZANIN NAVA [address] [place] [address] RD[address] [place] [address] [facility] (1) 9:00 AM Comments: You [...] the dressing Medical Equipment for Home Use: [facility] for home oxygen [phone] Home Health Services: [facility] [phone] Immunizations Documented During Stay: No Immunizations Found [...] 0. carvedilol (Coreg 25 mg oral tablet) 0.5 Tablet(s) Oral Two Times A Day for [...] 1 Puff(s) Inhalation Two Times A Day. montelukast (Singulair 10 mg oral tablet) [...] Follow these instructions at home: Medicines??? Take jjqx-tkc-bfcznzi and prescription medicines only as told by [...] and water are not available, use hand machine whitener. ? Change your dressing as told by [...] radio towers. ??? Do notuse amateur ( [employer] ) radio equipment or electric ( arc [...] 12/08/2007 Document Revised: 04/21/2017 Document Reviewed: 03/06/2015 [employer] Patient Education ? 2017 [employer] Smoking Hazards Smoking cigarettes is extremely [...] contain harmful chemicals. FOR MORE INFORMATION ??? [place] [employer]: www.lung.org ??? [place] [employer] Society: www.cancer.org This information is not intended to replace advice given to you by your health care provider. Make sure you discuss any questions you have with your health care provider. Document Released: 09/04/2005 Document Revised: 11/18/2016 Document Reviewed: 01/17/2014 [employer] Patient Education ? 2017 [employer] Heart-Healthy Eating Plan Many factors influence [...] foods can I eat? Grains Breads, including Serbian, white, serenity, wheat, raisin, rye, oatmeal, and Gabonese. Tortillas that are neither fried nor made with lard or trans fat. Low-fat rolls, including hotdog and hamburger buns and Bengali muffins. Biscuits. Muffins. Waffles. Pancakes. Light popcorn. Whole-grain cereals. Flatbread. Olla toast. Pretzels. Breadsticks. Rusks. Low-fat snacks and [...] cheese. Whole milk cheeses, including blue (henry), Jones Gary, Brie, Hayes, Bahraini, Havarti, Maltese, cheddar, Camembert, and Hungry Horse. Whole or 2% milk that is liquid, [...] that has suet, meat fat, or shortening. [place] butter, hydrogenated oils, palm oil, coconut oil, [...] 05/06/2009 Document Revised: 02/14/2017 Document Reviewed: 01/19/2015 [employer] Patient Education ? 2017 [employer] How to Take a Pulse Your [...] 02/01/2004 Document Revised: 02/14/2017 Document Reviewed: 12/31/2016 [employer] Patient Education ? 2017 [employer] How to Take Your Blood Pressure [...] 07/10/2009 Document Revised: 08/18/2015 Document Reviewed: 09/22/2014 [employer] Patient Education ? 2017 [employer] Cardiomyopathy, Adult Cardiomyopathy is a long-term [...] Other treatments may include cardiac resynchronization therapy (WARD HELPER) or a left ventricular assist device (LVAD). [...] to manage stress. General instructions ??? Take olfu-sjk-fckrahy and prescription medicines only as told by [...] 10/10/2005 Document Revised: 03/25/2017 Document Reviewed: 01/27/2017 [employer] Patient Education ? 2017 [employer] Medication Leaflets: bumetanide (oral/injection) (bystephen mccain) Bumex What is the most important [...] may report side effects to FDA at 4-485-YAE-1758. What other drugs will affect bumetanide? Bumetanide [...] drugs may affect bumetanide, including prescription and yddx-dtj-krdqqio medicines, vitamins, and herbal products. Not all [...] to ensure that the information provided by [employer]. ('[employer]') is accurate, up-to-date, and complete, but no guarantee is made to that effect. Drug information contained herein may be time sensitive. [employer] information has been compiled for use by healthcare practitioners and consumers in the [place] and therefore [employer] does not warrant that uses outside of the [place] are appropriate, unless specifically indicated otherwise. [employer]'s drug information does not endorse drugs, diagnose patients or recommend therapy. [employer] drug information is an informational resource designed [...] effective or appropriate for any given patient. [facility] does not assume any responsibility for any aspect of healthcare administered with the aid of information [facility] provides. The information contained herein is not intended to cover all possible uses, directions, precautions, warnings, drug interactions, allergic reactions, or adverse effects. If you have questions about the drugs you are taking, check with your doctor, nurse or pharmacist. Copyright 5218-7554 [facility] [employer] Version: 7.01. Revision Date: 08/13/2018. carvedilol (PRABHJOT ve dil ole) Germania, Germania CAMEJO What is the most important information [...] may report side effects to FDA at 5-902-GMX0233. What other drugs will affect carvedilol? Other drugs may interact with carvedilol, including prescription and xaaf-eow-yxydmea medicines, vitamins, and herbal products. Tell each [...] to ensure that the information provided by [employer] ('[employer]') is accurate, up-to-date, and complete, but no guarantee is made to that effect. Drug information contained herein may be time sensitive. [employer] information has been compiled for use by healthcare practitioners and consumers in the [place] and therefore [employer] does not warrant that uses outside of the [place] are appropriate, unless specifically indicated otherwise. [employer] drug information does not endorse drugs, diagnose patients or recommend therapy. [employer] drug information is an informational resource designed [...] effective or appropriate for any given patient. [employer] does not assume any responsibility for any aspect of healthcare administered with the aid of information [employer] provides. The information contained herein is not intended to cover all possible uses, directions, precautions, warnings, drug interactions, allergic reactions, or adverse effects. If you have questions about the drugs you are taking, check with your doctor, nurse or pharmacist. Copyright 3478-1722 [employer] Version: 15.. Revision Date: 08/30/2013. albuterol and ipratropium (inhalation) (al BUE ter ol and IP ra ALISA sheriff um) Combivent Respimat, DuoNeb What is [...] after using this medicine; ?? chest pain; documented in this encounter Plan of Treatment Upcoming Encounters Date Type Department Care Team (Late st Contact Info) Description 08/23/2025 12:45 PM EST Office Visit [facility] Electrophysiology [address] [place] [address] [place] [address] [place] [address] [address] [place] [address] documented as of this encounter Visit Diagnoses Not on filedocumented in this encounter Care Teams Hand Riveter Relationship Specialty Start Date End Date Alfred Cantu MD [address] [facility] [address] [place] [address] PCP - General General Internal Medicine 08/29/22 [place] [address] [place] [address] [address] [place], [place] [id number] Director Of Business Applications Interventional Cardiology 08/29/22 [place] [address] [place] [address] [address] Director Of Business Applications Electrophysiology 05/19/24 documented as of this encounter
--- OUTSIDE RECORDS SUMMARY | 2025-02-18 10:42 | XMS_ITS | Encounter Summary ---
Author Organization [employer] ([place], [place], [place], [place]) Address [address] [place] [address] Care Team Providers Care Director Public Policy Name Role Phone Alfred Cantu MD Primary Care Provider [phone] Lyndsey Key MD Unavailable [phone] Vik Corcoran MD Unavailable Encounter Details Date Type Department Care Team (Late st Contact Info) Description 10/27/2018 Transcribed Document [facility] [place] [facility] [place] [address] ProviderRashard MD [address] [place] [address] Social History Tobacco Use Types Packs/Day Years Used Date Smoking Tobacco: Never Assessed Comments Unknown Sex and Gender Information Value Date Recorded Sex Assigned at Not on file Legal Sex Female 1:15 PM CDT Gender Identity Not on file Sexual Orientation Not on file documented as of this encounter Miscellaneous Notes * Cerner Conversion Note - Rashard ProviderMD - 10/27/2018 1:26 PM CDT Discharge Instructions Entered On: 10/27/2018 13:31 EDT Performed On: 10/27/2018 13:26 EDT by OSEAS JIMENEZ RN DC Instructions HWD Special Instructions : STOP the following medications: STOP Azithromycin (zpack) STOP Diclofenac STOP Triamterene / HCTZ STOP Losartan STOP Coreg 25 mg tablets --- Dose decreased to 12.5 mg CIELO Billings, [facility] - 11/02/2018 10:43 EDT Medical Equipment For Home Use : [facility] for bedside commode and nebulizer [phone] REGINA TERRY [employer] - 11/02/2018 12:21 EDT [facility] [phone] REGINA TERRY [employer] - 10/27/2018 17:51 EDT Pain Management DC Instructions : Over the counter medication as directed. OSEAS JIMENEZ RN - 10/27/2018 13:45 EDT Stroke/TIA Discharge Ins : N/A Heart Failure Discharge Ins : Open Warfarin Discharge Ins : N/A Diet After Discharge : Heart healthy diet Fluid Restriction After Discharge : 2000 mL Activity After Discharge : As tolerated, Other: Refer to Discharge Device Instructions from Dr. Galeas. Driving After Discharge : Other: DO NOT drive if you feel dizzy or weak. Showering/Bathing : May shower, No tub bathing, soaking, or swimming Notify Provider of : fever greater than 101.5, increased shortness of air at rest, redness at the incision site or bleeding that you can not get to stop. Wound/Incision Care After Discharge : Keep operative site/wound site clean and dry, Other: Remove dressing after 5 days. Wound/Incision Care At Discharge Comment cision Care At Discharge Comment : Cleanse with antibacterial soap and water after the dressing OSEAS JIMENEZ RN - 10/27/2018 13:26 EDT Heart Failure Discharge Instructions Ejection Fraction : 25 % Daily Weight : Weigh yourself daily at the same time and record, Contact doctor if you gain 3 pounds overnight or 5 pounds in 1 week, Take weight log to doctor visits Heart Failure Activity : It is important to keep as active as you can and pace yourself with rest periods Smoking /Tobacco Use : Do not smoke, Smoking cessation phone number When to Call the Doctor : Increased weight of 3 pounds or more [...] belly, Dizziness, like you might pass out Education, Heart Failure Link : OSEAS Harrington, RN - 10/27/2018 13:26 EDT Education Topics, Heart Failure Education Topics, Heart Failure Diet and Nutrition : Verbalizes understanding Follow-up Appointment : Verbalizes understanding Sodium & Fluid Log : Verbalizes understanding Symptom Identification & Action Plan *Q : Verbalizes understanding Treatment Plan : Verbalizes understanding Weight Log : Verbalizes understanding Weight Monitoring : Verbalizes understanding When to Call Health Care Provider : Verbalizes understanding OSEAS JIMENEZ RN - 10/27/2018 13:26 EDT documented in this encounter Plan of Treatment Upcoming Encounters Date Type Department Care Team (Late st Contact Info) Description 08/23/2025 12:45 PM EST Office Visit [facility] Electrophysiology [address] [place] [address] Vik Corcoran MD [address] [place] [address] [address] [place] [id number] documented as of this encounter Visit Diagnoses Not on filedocumented in this encounter Care Teams Director Public Policy Relationship Specialty Start Date End Date Alfred Cantu MD [address] [place] [address] PCP - General General Internal Medicine 08/29/22 [place] [address] [place] [address] [address] [place] [id number] Project Superintendent Interventional Cardiology 08/29/22 [place] [address] [place] [address] [address] [place], [place] [id number] Project Superintendent Electrophysiology 05/19/24 documented as of this encounter
--- OUTSIDE RECORDS SUMMARY | 2025-02-18 10:42 | XMS_ITS | Encounter Summary ---
Author Organization [employer] ([place], [place], [place], [place]) Address [address] [place] [address] Care Team Providers Care Oracle Solutions Architect Name Role Phone Alfred Cantu MD Primary Care Provider Lyndsey Key MD Unavailable [phone] Vik Corcoran MD Unavailable Encounter Details Date Type Department Care Team (Late st Contact Info) Description 03/26/2024 Outside Orders [facility] Central Scheduling [address] [place] [address] Julisa Abbott PA [address] [place] [address] Spinal stenosis, lumbar region, with neurogenic claudication (Primary Dx) Social History Tobacco Use Types Packs/Day Years Used Date Smoking Tobacco: Never Smokeless Tobacco: Never Family and Community Support Answer Sebastian e Recorded Help with Day to Day Activities Not on file 08/29/2023 Feeling Lonely or Isolated Not on file 08/29 Educational Attainment Answer Date Ezra rded Speak language other than Comoran at home Not on file 08/29/2023 Want [...] Description 08/23/2025 12:45 PM EST Office Visit [facility] Electrophysiology [address] [place] [address] Vik Corcoran MD [address] [place] [address] [address] [place] [address] documented as of this encounter Visit Diagnoses Diagnosis Spinal stenosis, lumbar region, with neurogenic claudication- Primary documented in this encounter Care Teams [employer] Solutions Architect Relationship Specialty Start Date End Date Alfred Cantu MD [address] [place] [address] PCP - General General Internal Medicine 08/29/22 Lyndsey Key MD [address] [place] [address] [address] Airplane Tester Interventional Cardiology 08/29/22 Vik Corcoran MD [address] [place] [address] [address] [place], [place] [id number] Airplane Tester Electrophysiology 05/19/24 documented as of this encounter
--- OUTSIDE RECORDS SUMMARY | 2025-02-18 10:42 | XMS_ITS | Encounter Summary ---
Author Organization [employer] ([place], [place], [place], [place]) Address [address] [place] [address] Care Team Providers Care Collection Systems Modeler Name Role Phone Alfred Cantu MD Primary Care Provider [phone] Lyndsey Key MD Unavailable [phone] Vik Corcoran MD Unavailable Encounter Details Date Type Department Care Team (Late st Contact Info) Description 10/27/2018 Transcribed Document [facility] [place] Family Medicine [address] [place] [address] ProviderRashard MD [address] [place] [address] Social History Tobacco Use Types Packs/Day Years Used Date Smoking Tobacco: Never Assessed Comments Unknown Sex and Gender Information Value Date Recorded Sex Assigned at Not on file Legal Sex Female 1:15 PM CDT Gender Identity Not on file Sexual Orientation Not on file documented as of this encounter Miscellaneous Notes * Cerner Conversion Note - Rashard ProviderMD - 10/27/2018 11:33 AM CDT Care Management Assessment/Plan Entered On: 10/27/2018 17:27 EDT Performed On: 10/27/2018 17:26 EDT by REGINA TERRY Social Worker Care Management Note Anticipated Discharge Date : 10/23/2018 15:00 EDT REGINA TERRY Social Worker - 10/27/2018 17:26 EDT Care Management Note : Continue to follow for discharge needs and arrangements, chart reviewed, admission day #7, on 2 liters O2, room air=88%; plan is for patient to discharge home with spouse, Braxton ([phone]) who will transport and assist as needed. Orders received for home health and for home oxygen, d/w spouse providers, [facility] and [facility], referrals made, and portable O2 to be delivered to patient's room prior to discharge and HH to follow up to begin POC upon discharge. CM will continue to follow until discharge to finalize transfer arrangements. REGINA TERRY Social Worker - 10/27/2018 17:47 EDT Care Management Note Report : REGINA TERRY Telegraphic Service Dispatcher - 10/26/18 17:32:42 Continue to follow for discharge needs and arrangements, chart reviewed, admission day #6, on 2 liters O2/nebs, Wh=437, Cl=95, WBC=18.9, CXR=FINDINGS: The heart is stable in size. The lung rosario demonstrate no significant change in the right base atelectasis. There is no pneumothorax. The support devices are in good position. IMPRESSION: There has been no significant interval change; PT/HK=829' with rwx, PO Prednison, EP completed wound check today on Bi-V-ICD site, plan at discharge (possible Friday10/27/18) is to return home with spouse, Braxton, who will transport and assist with care. HH choice at discharge is [facility], once HH orders for RN/PT/OT in place will make referral and finalize arrangements. Will also watch for patient's room air level on day of discharge in case home oxygen is needed. Will continue to follow. REGINA TERRY Telegraphic Service Dispatcher - 10/23/18 17:17:58 Continue to follow for discharge needs and arrangements, chart reviewed, admission day #3, transfer from SICU, currently on 2 liters O2/nebs, Bp=144, Cl=88, Mg=2.5, WBC=18.3, CXR=pending, on IV Solumedrol [...] 13:09:33 readmit risk: moderate 57. transfer from [facility]. acute excerbation systolic heart failure. ef 25-30%. severe mitral regurg. severe nicm. CAP. for biv icd today. bipap 50%/02 4-6L nc. zithromax po. zosyn iv. ca gluconate iv x 2. kcl 20meq x 1. na phos iv x 1. PT consult. spoke with Jasmin Barbara. explained role of case management. pt resides in [facility]. she is adl independent. drives car. has cane, walker & cpap provided by [facility]. no current home health or previous rehab stays. discussed dc planning rehab vs home health depending on progress. pt has medicare primary. she advises she has [employer] insurance. notified Aubrie, pt advocate for inclusion in records. spoke with bedside RNMagda. Documentation Status Complete : Yes REGINA TERRY Social Worker - 10/27/2018 17:26 EDT Discharge Planning Details Discharge Home : Home, Home health (related) Home Caregiver Name/Relationship : Braxton Jimenez spouse [phone] Discharge Home Care Needs : Occupational therapy, Physical Therapy, senior living care Discharge Placement Needs : Home Persons Assisting Patient at Home : Spouse Transportation Needs : Car Discharge Dialysis Arrangements : No REGINA TERRY Social Worker - 10/27/2018 17:47 EDT Info/List/Choices Provided Patient Offered Choice/Affiliations Explained : Yes List/Info Provided Pt/Fam/Support Person : Durable medical equipment, Home health Important Medicare Message Reviewed With : Spouse Important Medicare Message Reviewed D/T : 10/26/2018 16:30 EDT Patient/Family Notified of Plan : Yes Patient/Family Notified : Braxton Jimenez spouse [phone] REGINA TERRY Social Worker - 10/27/2018 17:47 EDT Final Discharge Disposition Note-CM Discharge To Care Management : Home Health Services (Related/SOC within 3 days)-06 Name of Receiving Facility/Provider-CM : REGINA VILLARREAL Social Worker - 10/27/2018 17:47 EDT documented in this encounter Plan of Treatment Upcoming Encounters Date Type Department Care Team (Late st Contact Info) Description 08/23/2025 12:45 PM EST Office Visit [facility] Electrophysiology [address] [place] [phone] [place] [address] [place] [address] [address] [place] [address] documented as of this encounter Visit Diagnoses Not on filedocumented in this encounter Care Teams Collection Systems Modeler Relationship Specialty Start Date End Date Alfred Cantu MD [address] [place] [address] PCP - General General Internal Medicine 08/29/22 Lyndsey Key MD [address] [place] [address] [address] Director Drug Safety Interventional Cardiology 08/29/22 Vik Corcoran MD [address] [place] [address] [address] Director Drug Safety Electrophysiology 05/19/24 documented as of this encounter
--- OUTSIDE RECORDS SUMMARY | 2025-02-18 10:42 | XMS_ITS | Encounter Summary ---
Author Organization [employer] ([place], [place], [place], [place]) Address [address] [place] [address] Care Team Providers Care Fifth Grade Teacher Name Role Phone Alfred Cantu MD Primary Care Provider Lyndsey Key MD Unavailable [phone] Vik Corcoran MD Unavailable Encounter Details Date Type Department Care Team (Late st Contact Info) Description 10/23/2018 Transcribed Document [facility] [place] [address] [place] [address] ProviderRashard MD [address] [place] [address] Social History Tobacco Use Types Packs/Day Years Used Date Smoking Tobacco: Never Assessed Comments Unknown Sex and Gender Information Value Date Recorded Sex Assigned at Not on file Legal Sex Female 1:15 PM CDT Gender Identity Not on file Sexual Orientation Not on file documented as of this encounter Miscellaneous Notes * Cerner Conversion Note - Historical ProviderMD - 10/23/2018 11:36 AM CDT Attempt to Treat, PT Entered On: 10/23/2018 11:37 EDT Performed On: 10/23/2018 11:36 EDT by JENNIE PETER PT Attempt to Treat Unable to Treat Due To : Acuity of Illness, Patient on hold, Pending order clarification Inability to Treat Comment : Pt going for PPM today and RN states to HOLD today. Pt will need reorder post op for PT Re-eval and Alyssa IRVIN is aware. Notification : Alyssa IRVIN KAREN, PT - 10/23/2018 11:36 EDT Electronically signed by [facility], [facility] Conversion Director Of Neurology Cerner at 11/28/2022 5:41 PM CDT documented in this encounter Plan of Treatment Upcoming Encounters Date Type Department Care Team (Late st Contact Info) Description 08/23/2025 12:45 PM EST Office Visit [facility] Electrophysiology [address] [place] [phone] Vik Corcoran MD [address] [place] [address] [address] [place] [address] documented as of this encounter Visit Diagnoses Not on filedocumented in this encounter Care Teams Fifth Grade Teacher Relationship Specialty Start Date End Date Alfred Cantu MD [address] [place] [address] PCP - General General Internal Medicine 08/29/22 Lyndsey Key MD [address] [place] [address] [address] Interpreter Interventional Cardiology 08/29/22 Vik Corcoran MD [address] [place] [address] [address] Interpreter Electrophysiology 05/19/24 documented as of this encounter
--- OUTSIDE RECORDS SUMMARY | 2025-02-18 10:42 | XMS_ITS | Encounter Summary ---
Author Organization [employer] ([place], [place], [place], [place]) Address [address] [place] [address] Care Team Providers Care Head Bucker Name Role Phone Alfred Cantu MD Primary Care Provider [phone] Nivia Key MD Unavailable [phone] Vik Corcoran MD Unavailable Encounter Details Date Type Department Care Team (Late st Contact Info) Description 10/02/2021 Transcribed Document [facility] [place] [address] [place] [address] ProviderRashard MD [address] [place] [address] Social History Tobacco Use Types [...] Conversion Note - Historical ProviderMD - 10/02/2021 11:53 AM ORDER CHECKER [facility] [address] [place] [address] KATHY CARTER :1940 Visit Time:10/02/2021 Your Visit Summary Your Care Team Admitting Physician - NIVIA KEY MD-CAR Attending Physician - NIVIA KEY MD-CAR Primary Care Physician - ALFRED CANTU (REF), DEA Referring Physician - NIVIA KEY MD-CAR Your Diagnosis Paroxysmal atrial fibrillation, Paroxysmal atrial fibrillation These Are Your Goals No qualifying data available. Discharge Vitals Temperature 36.3 ??C Heart Rate (Monitored) 62 Respiratory Rate 14 Blood Pressure 127/73 What to do next Instructions From Your Care Team Diet after Discharge: Resume usual diet as tolerated Activity after Discharge: Rest and relax today, No strenuous activity, _, _ Driving Restrictions: No driving for 24 hours. Showering/Bathing: May shower., _ Medications: Stop Eliquis and continue your 81mg ASA daily Dressing Instructions: _, _, _ Follow-Up Appointments Follow Up with NIVIA KEY MD-CAR When Within 6 months Comments Call for follow up appointment Where: [address] [place] [address] [place] [id number]- Follow Up with NIVIA KEY When Within 6 months Where: [address] [place] [address] [address]- Business (1) Medications What How Much When Instructions Next Dose albuterol (albuterol 0.63 mg/ 3 mL (0.021%) inhalation solution) 3 Milliliter(s) Nebulized Inhalation Three Times A Day as needed for Shortness of Breath albuterol (ProAir HFA 90 mcg/ inh inhalation aerosol) 2 Puff(s) Inhalation Four Times A Day as needed for for wheezing amiodarone (amiodarone 200 mg oral tablet) 0.5 Tablet(s) Oral Every Day amLODIPine (Norvasc 2.5 mg oral tablet) Oral At Bedtime apixaban (Eliquis 5 mg oral tablet) 1 Tablet(s) Oral Interval Every 12 Hours carvedilol (Coreg 12.5 mg oral tablet) 1 Tablet(s) Oral Two Times A Day diazePAM (diazePAM 5 mg oral tablet) 1 Tablet(s) Oral Every Day as needed for for anxiety fluticasone-salmeterol (Advair Diskus 250 mcg-50 mcg inhalation powder) 1 Puff(s) Inhalation Two Times A Day irbesartan 150 Milligram(s) Oral Every Day montelukast (Singulair 10 mg oral tablet) 1 Tablet(s) Oral Every Day omeprazole (omeprazole 20 mg oral delayed release capsule) 1 Capsule(s) Oral At Bedtime potassium chloride (Potassium Chloride (Bqi-Gpbz-Ovl M20) 20 mEq oral tablet, extended release) 2 Tablet(s) Oral Two Times A Day Take your medications faithfully. Do NOT skip [...] cramping, rapid heartbeat, difficulty sleeping, and nervousness. Please dispose of unused and medications per your retail pharmacy guidance. Allergies Latex statins sulfa drugs Immunizations This Visit No Immunizations Found Education Materials Moderate Conscious Sedation, Adult, Care After This [...] eating solid foods. General instructions ??? Take jxew-jku-jehhewc and prescription medicines only as told by [...] provider. Document Revised: 11/24/2020 Document Reviewed: 06/22/2020 Elsevier Patient Education ?? 2020 [employer] Transesophageal Echocardiogram Transesophageal echocardiogram (PTEER) is a test that uses sound waves [...] includes vitamins, herbs, eye drops, creams, and lvfv-bnz-nbnfknn medicines. ??? Any problems you or family [...] medicines. ? Vitamins, herbs, and supplements. ? Pxbw-mhc-rsuhoih medicines. ??? Do not take aspirin or [...] provider. Document Revised: 03/20/2021 Document Reviewed: 03/20/2021 [employer] Patient Education ?? 2020 [employer]. Emergency Awareness and Preventative Care STROKE is an EMERGENCY Every Minute Counts Act FAST and Check for these signs: FACE Does the face look uneven? ARM Does one arm drift down? SPEECH Does their speech sound strange? TIME Call at any sign of stroke Stroke Risk Factors Atrial Fibrillation (irregular heartbeat) Diabetes Family history of stroke Heart Disease Heavy alcohol use High Blood Pressure High Cholesterol Physical inactivity and obesity Smoking Cigarette Smoking The facts are clear, cigarette smoking will shorten your life. Smoking can cause many illnesses along the way. As a healthcare provider, we recommend that you stop smoking. Assistance with quitting is available by contacting 2-683-DYJKNOW. This is a free resource providing counseling, support, and referral. Or you may contact your personal physician. [place] Suicide Prevention Lifeline: The National Suicide Prevention Lifeline is a national network of local crisis centers that provides free and confidential emotional support to people in suicidal crisis or emotional distress 24 hours a day, 7 days a week. Don't Wait! Stop a Heart Attack Before it Starts What is a heart attack? A heart attack is damage or to a part of the heart from severely decreased or lack of blood flow to the heart. Over time, arteries can become narrow from the buildup of fat and cholesterol, which is called plaque. The plaque can rupture causing a blood clot to form. When the blood clot forms, the artery can become severely narrowed or completely blocked, causing a heart attack. Heart attack is the leading cause of in the [place]. 85% of muscle damage occurs within the first 2 hours. Delay in the recognition of heart attack symptoms increases the chances of . Know the early symptoms of a heart attack: Nausea Feeling of fullness in chest Jaw Pain Pain that travels down one or both arms Fatigue/being tired Anxiety Back Pain Chest pressure, squeezing, or discomfort Shortness of breath Sweating, or a cold sweat Feeling of impending doom There are unusual signs of a heart attack, too! Women, the elderly, and diabetics may present with atypical symptoms: Fainting/dizziness Weakness Confusion Risk Factors for a Heart Attack Some heart disease risk factors, such as age and family history, cannot be changed. Others, like smoking and lack of exercise, can be changed. Smoking High Cholesterol High Blood Pressure Family History Obesity Age Gender (Males are at higher risk) Lack of Exercise Diabetes Diet Stress Excessive Alcohol Intake If you or someone you know is experiencing the signs and symptoms of a heart attack, DON???T DELAY. Call immediately and seek help. If someone collapses, perform CPR! Do not attempt to drive if you are having symptoms of heart attack. Hands-Only CPR Why Hands-Only CPR? Hands-Only CPR has been shown to be as effective as conventional CPR for cardiac arrests that occur outside of a hospital. Survival depends on immediately receiving CPR from someone nearby. How do you perform Hands-Only CPR? There are two easy steps: Call if you see a teen or adult collapse Push hard and fast in the center of the chest at a beat of 100 beats per minute. Save a life! 4 WAYS TO GET AHEAD OF SEPSIS SEPSIS is a MEDICAL EMERGENCY. Time matters! Infections put you and your family at risk for a life-threatening condition called sepsis. Sepsis is the body's extreme response to an infection. It is life-threatening, and without timely treatment, sepsis can rapidly lead to tissue damage, organ failure, and . Sepsis happens when an infection you already have-in your skin, lungs, urinary tract or somewhere else-triggers a chain reaction throughout your body. 1 PREVENT INFECTIONS Take good care of chronic conditions. Talk to your doctor about getting the recommended vaccines. 2 PRACTICE GOOD HYGIENE Wash your hands frequently. Keep cuts or open sores clean and covered until they are healed. 3 KNOW THE SYMPTOMS Confusion or disorientation Shortness of breath High heart rate Fever, shivering, or feeling very cold Extreme pain or discomfort Clammy or sweaty skin 4 ACT FAST Get medical care IMMEDIATELY if you suspect sepsis or if you have an infection that is not getting better or is getting worse. To learn more about sepsis and how to prevent infections, visit www.cdc.gov/sepsis. Test Results Laboratory or Other Results This Visit (last charted value for your 10/02/2021 visit) Echo 10/02/2021 9:25 AM EC PETER Complete: EC PETER Complete Patient Name:KATHY CARTER I have received and understand this information and was given the opportunity to ask questions. Patient/Organizational Effectiveness Director Name: Patient/Organizational Effectiveness Director Signature: Relationship to Patient: Clinician/Hospital Organizational Effectiveness Director Signature: Date: documented in this encounter Plan of Treatment Upcoming Encounters Date Type Department Care Team (Late st Contact Info) Description 08/23/2025 12:45 PM EST Office Visit [facility] Electrophysiology [address] [place] [phone] [place] [address] [place] [address] [address] [place] [phone] documented as of this encounter Visit Diagnoses Not on filedocumented in this encounter Care Teams Head Bucker Relationship Specialty Start Date End Date Alfred Cantu MD [address] [place] [address] PCP - General General Internal Medicine 08/29/22 [place] [address] [place] [address] [address] [place] [address] Milk Driver Interventional Cardiology 08/29/22 Vik Corcoran MD [address] [facility] [address] [place] [address] Milk Driver Electrophysiology 05/19/24 documented as of this encounter
--- OUTSIDE RECORDS SUMMARY | 2025-02-18 10:42 | XMS_ITS | Encounter Summary ---
Author Organization [employer] ([place], [place], [place], [place]) Address [address] [place] [address] Care Team Providers Care Accounts Receivable Administrator Name Role Phone Alfred Cantu MD Primary Care Provider [phone] Lyndsey Key MD Unavailable [phone] Vik Corcoran MD Unavailable Encounter Details Date Type Department Care Team (Late st Contact Info) Description 10/24/2018 Transcribed Document [facility] [place] [address] [place] [address] ProviderRashard MD [address] [place] [address] Social History Tobacco Use Types Packs/Day Years Used Date Smoking Tobacco: Never Assessed Comments Unknown Sex and Gender Information Value Date Recorded Sex Assigned at Not on file Legal Sex Female 1:15 PM CDT Gender Identity Not on file Sexual Orientation Not on file documented as of this encounter Miscellaneous Notes * Cerner Conversion Note - Rashard ProviderMD - 10/24/2018 5:00 AM CDT Chart Check - Review Order Profile Entered On: 10/24/2018 4:10 EDT Performed On: 10/24/2018 5:00 EDT by YASHIRA CABRAL RN Chart Check Chart Reviewed Date and Time : 10/24/2018 4:10 EDT Powerplans Initiated/Discontinued as Appropriate : Yes All Active Orders Reviewed : Yes YASHIRA CABRAL RN - 10/24/2018 4:10 EDT documented in this encounter Plan of Treatment Upcoming Encounters Date Type Department Care Team (Late st Contact Info) Description 08/23/2025 12:45 PM EST Office Visit [facility] Electrophysiology [address] [place] [phone] [place] [address] [place] [address] [address] [place] [phone] documented as of this encounter Visit Diagnoses Not on filedocumented in this encounter Care Teams Accounts Receivable Administrator Relationship Specialty Start Date End Date Alfred Cantu MD [address] [place] [address] PCP - General General Internal Medicine 08/29/22 [place] [address] [place] [address] [address] [place] [address] General Labor Interventional Cardiology 08/29/22 [place] [address] [place] [address] [address] [place], [place] [id number] General Labor Electrophysiology 05/19/24 documented as of this encounter
--- OUTSIDE RECORDS SUMMARY | 2025-02-18 10:42 | XMS_ITS | Encounter Summary ---
Author Organization [employer] ([place], [place], [place], [place]) Address [address] [place] [address] Care Team Providers Care Director Of Special Education Name Role Phone Alfred Cantu MD Primary Care Provider Lyndsey Key MD Unavailable Vik Corcoran MD Unavailable Encounter Details Date Type Department Care Team (Late st Contact Info) Description 10/26/2018 Transcribed Document [facility] [place] [facility] [place] [address] ProviderRashard MD [address] [place] [address] Social History Tobacco Use Types Packs/Day Years Used Date Smoking Tobacco: Never Assessed Comments Unknown Sex and Gender Information Value Date Recorded Sex Assigned at Not on file Legal Sex Female 1:15 PM CDT Gender Identity Not on file Sexual Orientation Not on file documented as of this encounter Miscellaneous Notes * Cerner Conversion Note - Rashard ProviderMD - 10/26/2018 9:55 AM CDT Patient: KATHY CARTER Age: 78 Years Sex: Female : 1940 Subjective Chief Complaint: Patient sitting on side of bed using IS. Patient states she wants to stay one more night. Physical Exam (1, 6, 12) NAD No JVD Oropharynx moist Decreased BS over bases Regular, nl S1, S2, 3/6 HSM +BS,soft trace edema Superficial incision dressing CDI, no drainage noted. Vitals & Measurements T: 36.4 ??C TMIN: 36.3 ??C TMAX: 36.6 ??C HR: 49(Monitored) RR: 16 BP: 129/81 SpO2: 95% WT: 85 kg Intake & Output Intake & Output Totals Last 24 Hours (7a-7a) Intake (1 Events) Oral Intake (120 mL) Output (0 Events) No output events found in the last 24 hours. Input Total: 120 mL Output Total: 0 mL Balance: 120 mL Assessment/Plan 1. 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 Acute systolic heart failure 3. Severe MR 4. Acute pneumonia,on IV antibiotics 10/26/18 Left BIV-ICD incision with dressing clean, [...] Left arm sling DC instructions explained. No heparin in any form for 24 hours. Medications [...] 1200 mg= 2 Tab, Oral, BID nystatin, [id number] Units= 10 mL, Swish and Swallow , [...] 15 mL, Feeding Tube, Q2H, PRN predniSONE, 40 mg= 2 Tab, Oral, Daily predniSONE, 20 mg= 1 Tab, Oral, Daily [...] mg= 1 Tab, Oral, Daily Lab Results Blood Gases (Current Encounter/Past 24 Hours) No Blood Gas Results Found (Past 24 Hours) Electrolytes(BMP) Results (Current Encounter/Past 24 Hours) Sodium Level 129 mmol/L LOW 10/26/2018 06:49 Potassium Level 4.6 mmol/L 10/26/2018 06:49 Chloride Level 95 mmol/L LOW 10/26/2018 06:49 Carbon Dioxide Level 24 mmol/L 10/26/2018 06:49 Anion Gap 15 10/26/2018 06:49 Blood Urea Nitrogen 36 mg/dL HI 10/26/2018 06:49 Glucose Level 105 mg/dL 10/26/2018 06:49 Calcium Level 8.9 mg/dL 10/26/2018 06:49 Creatinine Level 1.00 mg/dL 10/26/2018 06:49 Cardiac Markers (Current Encounter/Past 24 Hours) No Cardiac Marker Results Found (Past 24 Hours) CBC Results (Current Encounter/Past 24 Hours) WBC 18.9 K/uL [place] 10/26/2018 06:39 Hct 43.7 % 10/26/2018 06:39 Hgb 13.3 g/dL 10/26/2018 06:39 Platelet Count 170 K/uL 10/26/2018 06:39 CMP Results (Current Encounter/Past 24 Hours) eGFR NonAfrican 54 mL/min/1.73m2 LOW 10/26/2018 06:49 eGFR >60 mL/min/1.73m2 10/26/2018 06:49 Creatinine Level 1.00 mg/dL 10/26/2018 06:49 Bun/Creatinine 36.0 AZ 10/26/2018 06:49 Sodium Level 129 mmol/L LOW 10/26/2018 06:49 Potassium Level 4.6 mmol/L 10/26/2018 06:49 Chloride Level 95 mmol/L LOW 10/26/2018 06:49 Carbon Dioxide Level 24 mmol/L 10/26/2018 06:49 Anion Gap 15 10/26/2018 06:49 Blood Urea Nitrogen 36 mg/dL [place] 10/26/2018 06:49 Glucose Level 105 mg/dL 10/26/2018 06:49 Calcium Level 8.9 mg/dL 10/26/2018 06:49 Coagulation Results (Current Encounter/Past 24 Hours) No Coagulation Results Found (Past 24 Hours) Creatinine Clearance (Current Encounter/Past 24 Hours) Creatinine Level 1.00 mg/dL 10/26/2018 06:49 Bun/Creatinine 36.0 [place] 10/26/2018 06:49 Estimated Creatinine Clearance 34.38 mL/Min 10/25/2018 13:14 Electronically signed by Kavita, [facility] Conversion Branch Service Specialist Cerner at 11/28/2022 5:44 PM CDT documented in this encounter Plan of Treatment Upcoming Encounters Date Type Department Care Team (Late st Contact Info) Description 08/23/2025 12:45 PM EST Office Visit [facility] Electrophysiology [address] [place] [phone] [place] [address] [place] [address] [address] [place] [address] documented as of this encounter Visit Diagnoses Not on filedocumented in this encounter Care Teams Director Of Special Education Relationship Specialty Start Date End Date Alfred Cantu MD [address] [place] [address] PCP - General General Internal Medicine 08/29/22 Lyndsey Key MD [address] [place] [address] [address] Lead Machinist Interventional Cardiology 08/29/22 Vik Corcoran MD [address] [place] [address] [address] Lead Machinist Electrophysiology 05/19/24 documented as of this encounter
--- OUTSIDE RECORDS SUMMARY | 2025-02-18 10:42 | XMS_ITS | Encounter Summary ---
Author Organization [employer] ([place], [place], [place], [place]) Address [address] [place] [address] Care Team Providers Care Agricultural Systems Specialist Name Role Phone Alfred Cantu MD Primary Care Provider [phone] Lyndsey Key MD Unavailable [phone] Vik Corcoran MD Unavailable Encounter Details Date Type Department Care Team (Late st Contact Info) Description 10/26/2018 Transcribed Document [facility] [place] [address] [place] [address] ProviderRashard MD [address] [place] [address] Social History Tobacco Use Types Packs/Day Years Used Date Smoking Tobacco: Never Assessed Comments Unknown Sex and Gender Information Value Date Recorded Sex Assigned at Not on file Legal Sex Female 1:15 PM CDT Gender Identity Not on file Sexual Orientation Not on file documented as of this encounter Miscellaneous Notes * Cerner Conversion Note - Rashard ProviderMD - 10/26/2018 5:00 AM CDT Chart Check - Review Order Profile Entered On: 10/26/2018 3:50 EDT Performed On: 10/26/2018 5:00 EDT by YASHIRA CABRAL RN Chart Check Chart Reviewed Date and Time : 10/26/2018 3:50 EDT Powerplans Initiated/Discontinued as Appropriate : Yes All Active Orders Reviewed : Yes YASHIRA CABRAL RN - 10/26/2018 3:49 EDT documented in this encounter Plan of Treatment Upcoming Encounters Date Type Department Care Team (Late st Contact Info) Description 08/23/2025 12:45 PM EST Office Visit [facility] Electrophysiology [address] [place] [phone] [place] [address] [place] [address] [address] [place] [phone] documented as of this encounter Visit Diagnoses Not on filedocumented in this encounter Care Teams Agricultural Systems Specialist Relationship Specialty Start Date End Date Alfred Cantu MD [address] [place] [address] PCP - General General Internal Medicine 08/29/22 [place] [address] [place] [address] [address] [place] [address] Agricultural Systems Specialist Interventional Cardiology 08/29/22 [place] [address] [place] [address] [address] [place], [place] [id number] Agricultural Systems Specialist Electrophysiology 05/19/24 documented as of this encounter
--- OUTSIDE RECORDS SUMMARY | 2025-02-18 10:42 | XMS_ITS | Encounter Summary ---
Author Organization [employer] ([place], [place], [place], [place]) Address [address] [place] [address] Care Team Providers Care Relay Tester Helper Name Role Phone Alfred Cantu MD Primary Care Provider [phone] Lyndsey Key MD Unavailable [phone] Vik Corcoran MD Unavailable Encounter Details Date Type Department Care Team (Late st Contact Info) Description 10/26/2018 Transcribed Document [facility] [place] [facility] [place] [address] ProviderRashard MD [address] [place] [address] Social History Tobacco Use Types Packs/Day Years Used Date Smoking Tobacco: Never Assessed Comments Unknown Sex and Gender Information Value Date Recorded Sex Assigned at Not on file Legal Sex Female 1:15 PM CDT Gender Identity Not on file Sexual Orientation Not on file documented as of this encounter Miscellaneous Notes * Cerner Conversion Note - Historical ProviderMD - 10/26/2018 5:00 PM CDT Chart Check - Review Order Profile Entered On: 10/26/2018 20:55 EDT Performed On: 10/26/2018 17:00 EDT by Marilyn James, RN Chart Check All Active Orders Reviewed : Yes Marilyn James, BRANDEE - 10/26/2018 20:55 EDT Electronically signed by Kavita [facility] Conversion Interior Plant Caretaker Cerner at 11/28/2022 5:44 PM CDT documented in this encounter Plan of Treatment Upcoming Encounters Date Type Department Care Team (Late st Contact Info) Description 08/23/2025 12:45 PM EST Office Visit [facility] Electrophysiology [address] [place] [phone] [place] [address] [place] [address] [address] [place] [address] documented as of this encounter Visit Diagnoses Not on filedocumented in this encounter Care Teams Relay Tester Helper Relationship Specialty Start Date End Date Alfred Cantu MD [address] [place] [address] PCP - General General Internal Medicine 08/29/22 Lyndsey Key MD [address] [place] [address] [address] Semiconductor Engineer Interventional Cardiology 08/29/22 iVk Corcoran MD [address] [place] [address] [address] Semiconductor Engineer Electrophysiology 05/19/24 documented as of this encounter
--- OUTSIDE RECORDS SUMMARY | 2025-02-18 10:42 | XMS_ITS | Encounter Summary ---
Author Organization [employer] ([place], [place], [place], [place]) Address [address] [place] [address] Care Team Providers Care Software Test Engineer Name Role Phone Alfred Cantu MD Primary Care Provider [phone] yLndsey Key MD Unavailable [phone] Vik Corcoran MD Unavailable Encounter Details Date Type Department Care Team (Late st Contact Info) Description 10/27/2018 Transcribed Document [facility] [place] [facility] [place] [address] ProviderRashard MD [address] [place] [address] Social History Tobacco Use Types Packs/Day Years Used Date Smoking Tobacco: Never Assessed Comments Unknown Sex and Gender Information Value Date Recorded Sex Assigned at Not on file Legal Sex Female 1:15 PM CDT Gender Identity Not on file Sexual Orientation Not on file documented as of this encounter Miscellaneous Notes * Cerner Conversion Note - Rashard ProviderMD - 10/27/2018 5:00 PM CDT Chart Check - Review Order Profile Entered On: 10/27/2018 18:49 EDT Performed On: 10/27/2018 17:00 EDT by Roberta Ernandez, Rn Chart Check Powerplans Initiated/Discontinued as Appropriate : Yes All Active Orders Reviewed : Yes Roberta Ernandez Rn - 10/27/2018 18:49 EDT Electronically signed by Kavita [facility] Conversion Produce Sorter Krzysztof at 11/28/2022 5:36 PM CDT documented in this encounter Plan of Treatment Upcoming Encounters Date Type Department Care Team (Late st Contact Info) Description 08/23/2025 12:45 PM EST Office Visit [facility] Electrophysiology [address] [place] [address] [place] [address] [place] [address] [address] [place] [address] documented as of this encounter Visit Diagnoses Not on filedocumented in this encounter Care Teams Software Test Engineer Relationship Specialty Start Date End Date Alfred Cantu MD [address] [place] [address] PCP - General General Internal Medicine 08/29/22 Lyndsey Key MD [address] [facility] [address] [address] Instrument Lens Inspector Interventional Cardiology 08/29/22 [place] [address] [place] [address] [address] Instrument Lens Inspector Electrophysiology 05/19/24 documented as of this encounter
--- OUTSIDE RECORDS SUMMARY | 2025-02-18 10:42 | XMS_ITS | Encounter Summary ---
Author Organization [employer] ([place], [place], [place], [place]) Address [address] [place] [address] Care Team Providers Care Dietitian Helper Name Role Phone Alfred Cantu MD Primary Care Provider [phone] Lyndsey Key MD Unavailable [phone] Vik Corcoran MD Unavailable Encounter Details Date Type Department Care Team (Late st Contact Info) Description 10/26/2018 Transcribed Document [facility] [place] [facility] [place] [address] ProviderRashard MD [address] [place] [address] Social History Tobacco Use Types Packs/Day Years Used Date Smoking Tobacco: Never Assessed Comments Unknown Sex and Gender Information Value Date Recorded Sex Assigned at Not on file Legal Sex Female 1:15 PM CDT Gender Identity Not on file Sexual Orientation Not on file documented as of this encounter Miscellaneous Notes * Cerner Conversion Note - Rashard Gonzalez MD - 10/26/2018 5:25 AM CDT Sepsis Screening Tool Entered On: 10/26/2018 7:37 EDT Performed On: 10/26/2018 5:25 EDT by Marilyn James RN Provider Notification Provider Notified of Concerns/Results : Hypotension Chain of Command Initiated : No Rapid Response Team Called : No Results to Provider Comment : did not call provider - believe SBP to be false reading - rechecked on 07:30 and BP normal Marilyn James RN - 10/26/2018 7:36 EDT Electronically signed by Kavita [facility] Conversion Photography And Prints Curator Cerner at 11/28/2022 5:41 PM CDT documented in this encounter Plan of Treatment Upcoming Encounters Date Type Department Care Team (Late st Contact Info) Description 08/23/2025 12:45 PM EST Office Visit [facility] Electrophysiology [address] [place] [phone] Vik Corcoran MD [address] [place] [address] [address] [place] [phone] documented as of this encounter Visit Diagnoses Not on filedocumented in this encounter Care Teams Dietitian Helper Relationship Specialty Start Date End Date Alfred Cantu MD [address] [place] [address] PCP - General General Internal Medicine 08/29/22 Lyndsey Key MD [address] [place] [address] [id number] Clinical Nurse Occupational Medicine Interventional Cardiology 08/29/22 Vik Corcoran MD [address] [place] [address] [address] Clinical Nurse Occupational Medicine Electrophysiology 05/19/24 documented as of this encounter
--- OUTSIDE RECORDS SUMMARY | 2025-02-18 10:42 | XMS_ITS | Encounter Summary ---
Author Organization [employer] ([place], [place], [place], [place]) Address [address] [place] [address] Care Team Providers Care Calendar Control Clerk Blood Bank Name Role Phone Alfred Cantu MD Primary Care Provider [phone] Lyndsey Key MD Unavailable [phone] Vik Corcoran MD Unavailable Encounter Details Date Type Department Care Team (Late st Contact Info) Description 10/29/2018 Transcribed Document [facility] [place] [facility] [place] [address] ProviderRashard MD [address] [place] [address] Social History Tobacco Use Types Packs/Day Years Used Date Smoking Tobacco: Never Assessed Comments Unknown Sex and Gender Information Value Date Recorded Sex Assigned at Not on file Legal Sex Female 1:15 PM CDT Gender Identity Not on file Sexual Orientation Not on file documented as of this encounter Miscellaneous Notes * Cerner Conversion Note - Rashard ProviderMD - 10/29/2018 2:00 AM CDT Commercial Lines Account Manager Details Entered On: 10/29/2018 5:18 EDT Performed On: 10/29/2018 2:00 EDT by Ivet Smith RN Order Details Transport Mode Order Detail : Wheelchair Isolation Precautions Order Detail : Droplet precautions Order Detail : N/A IV Order Detail : 1 Oxygen Order Detail : 1 Nurse Collect Order Detail : 0 Lift/Transfer : Minimal Central Line Order Detail : No Room Service : Appropriate Arterial Line : No Ivet Smith RN - 10/29/2018 5:17 EDT Electronically signed by Kavita, [facility] Conversion Half Sole Fitter Cerner at 11/28/2022 5:41 PM CDT documented in this encounter Plan of Treatment Upcoming Encounters Date Type Department Care Team (Late st Contact Info) Description 08/23/2025 12:45 PM EST Office Visit [facility] Electrophysiology [address] [place] [phone] Vik Corcoran MD [address] [place] [address] [address] [place], [place] [phone] documented as of this encounter Visit Diagnoses Not on filedocumented in this encounter Care Teams Calendar Control Clerk Blood Bank Relationship Specialty Start Date End Date Alfred Cantu MD [address] [place] [address] PCP - General General Internal Medicine 08/29/22 Lyndsey Key MD [address] [place] [address] [address] Pouch Maker Interventional Cardiology 08/29/22 Vik Corcoran MD [address] [place] [address] [id number] Pouch Maker Electrophysiology 05/19/24 documented as of this encounter
--- OUTSIDE RECORDS SUMMARY | 2025-02-18 10:42 | XMS_ITS | Encounter Summary ---
Author Organization [employer] ([place], [place], [place], [place]) Address [address] [place] [address] Care Team Providers Care Window Trimmer Name Role Phone Alfred Cantu MD Primary Care Provider [phone] Lyndsey Key MD Unavailable [phone] Vik Corcoran MD Unavailable Encounter Details Date Type Department Care Team (Late st Contact Info) Description 10/29/2018 Transcribed Document [facility] [place] [facility] [place] [address] ProviderRashard MD [address] [place] [address] Social History Tobacco Use Types Packs/Day Years Used Date Smoking Tobacco: Never Assessed Comments Unknown Sex and Gender Information Value Date Recorded Sex Assigned at Not on file Legal Sex Female 1:15 PM CDT Gender Identity Not on file Sexual Orientation Not on file documented as of this encounter Miscellaneous Notes * Cerner Conversion Note - Rashard ProviderMD - 10/29/2018 1:15 PM CDT Patient: KATHY CARTER Age: 78 years Sex: Female : 1940 Associated Diagnoses: None Author: CLARE LIVINGSTON MD-INF History of Present Illness 10/28/18 - Initial hospital visit for this very pleasant 78 yr old with CC high WBC has hx of CM Recently admitted to [facility] for 3 days - then sent here had PPM placed here Found to have RSV pneumonia Was treated with antibiotics, then steroids, on taper co cough no fever or chills now co pain at PPM site 10/29 - I feel fine no fever chills rash GI CR issues notes bruising at PPM site Review of Systems Constitutional: [...] Medications Ordered Bumex: 1 mg, Oral, Daily Core.125 mg, Oral, BID Desenex AF 2% topical [...] 500 mg oral tablet: 1 Tab, Oral, [id number], for 7 Day(s), 7 Tab, 0 Refill(s) [...] Daily, 0 Refill(s), Medications (30) Active Scheduled: (13) albuterol-ipratropium inh 3 mL 3 mL, Nebulized Inhalation, RT_Q6H aspirin 81 mg chew tab 81 mg 1 Tab, Oral, Daily budesonide 0.5 mg/2 mL inh susp 0.5 mg 2 mL, Nebulized Inhalation, BID bumetanide 1 mg tab 1 mg 1 Tab, Oral, Daily carvedilol 3.125 mg tab 3.125 mg 1 Tab, Oral, BID doxycycline hyclate [...] 1 Tab, Oral, Daily Continuous: (0) PRN: (17) [...] History of obstructive sleep apnea / IMO [id number] / Confirmed, Active Problems (9) Allergic asthma Apnea, sleep Chronic GERD Dyspnea H/O hyperlipidemia H/O mitral valve insufficiency History of obstructive sleep apnea Hx of obesity Hypertension Histories Past Medical History: No active or resolved past medical history items have been selected or recorded. Family History: No family history items have been selected or recorded. Procedure history: CHOLECYSTECTOMY ([id number]). hysterectomy. sinus surgery. cataract surgery - bilateral. [...] (OCT 29 06:23) 97.9 (OCT 29 06:23) 98.2 (OCT 28 13:52) Mon HR 70 (OCT 29 11:09) 47 (OCT 29 02:34) 110 (OCT 28 17:30) Resp Rate 18 (OCT 29 11:09) 16 (OCT 29 06:23) 19 (OCT 28 22:17) SBP 103 (OCT 29 09:42) 101 (OCT 29 06:27) H 155 (OCT 28 17:30) DBP 69 (OCT 29 09:42) L 58 (OCT 28 14:53) H 98 (OCT 28 22:17) MAP 82 (OCT 29 09:42) 68 (OCT [...] Soft, Non-tender, large, distended?. Genitourinary: Exam deferred. Musculoskeletal: Normal range of motion, Normal strength. Integumentary: Warm, Dry. Neurologic: Alert, Oriented. Cognition and Speech: Oriented, Speech clear and coherent. Psychiatric: Cooperative, Appropriate mood & affect. Review / Management Results review: Labs (Last four charted values) WBC C 39.7 (OCT 29) C 34.7 (OCT 28) H 23.9 (OCT 27) H 18.9 (OCT 26) HB 12.2 (OCT 29) 12.7 (OCT 28) 12.0 (OCT 27) 13.3 (OCT 18) HCT 36.9 (OCT 29) 38.6 (OCT 28) 36.7 (OCT 27) 43.7 (OCT 18) Plt 174 (OCT 29) 187 (OCT 20) 185 (OCT 19) 170 (OCT 18) Na L 128 (OCT 28) L 129 (OCT 27) L 129 (OCT 18) L 127 (OCT 17) K 5.1 (OCT 28) 4.3 (OCT 27) 4.6 (MAR 18) 4.8 (OCT 25) Cl L 92 (OCT 28) L 88 [...] if local Physician can't Electronically signed by [facility] Conversion Music Educator Cerner at 11/28/2022 5:32 PM CDT documented in this encounter Plan of Treatment Upcoming Encounters Date Type Department Care Team (Late st Contact Info) Description 08/23/2025 12:45 PM EST Office Visit [facility] Electrophysiology [address] [place] [address] Vik Corcoran MD [address] [facility] [address] [place] [address] documented as of this encounter Visit Diagnoses Not on filedocumented in this encounter Care Teams Window Trimmer Relationship Specialty Start Date End Date Alfred Cantu MD [address] [place] [address] PCP - General General Internal Medicine 08/29/22 Lyndsey Key MD [address] [place] [address] [address] [place] [address] Catalyst Operator Interventional Cardiology 08/29/22 [place] [address] [place] [address] [address] [place] [address] Catalyst Operator Electrophysiology 05/19/24 documented as of this encounter
--- OUTSIDE RECORDS SUMMARY | 2025-02-18 10:42 | XMS_ITS | Encounter Summary ---
Author Organization [employer] ([place], [place], [place], [place]) Address [address] [place] [address] Care Team Providers Care Grade Checker Name Role Phone Alfred Cantu MD Primary Care Provider [phone] Lyndsey Key MD Unavailable Vik Corcoran MD Unavailable Encounter Details Date Type Department Care Team (Late st Contact Info) Description 10/30/2018 Transcribed Document [facility] [place] Family [place] [facility] [address] ProviderRashard MD [address] [place] [address] Social History Tobacco Use Types Packs/Day Years Used Date Smoking Tobacco: Never Assessed Comments Unknown Sex and Gender Information Value Date Recorded Sex Assigned at Not on file Legal Sex Female 1:15 PM CDT Gender Identity Not on file Sexual Orientation Not on file documented as of this encounter Miscellaneous Notes * Cerner Conversion Note - Rashard ProviderMD - 10/30/2018 5:00 AM CDT Chart Check - Review Order Profile Entered On: 10/30/2018 3:05 EDT Performed On: 10/30/2018 5:00 EDT by Ivet Smith RN Chart Check Chart Reviewed Date and Time : 10/30/2018 3:04 EDT Powerplans Initiated/Discontinued as Appropriate : Yes All Active Orders Reviewed : Yes Ivet Smith RN - 10/30/2018 3:04 EDT Electronically signed by Kavita [facility] Conversion Progress Developer Cerner at 11/28/2022 5:33 PM CDT documented in this encounter Plan of Treatment Upcoming Encounters Date Type Department Care Team (Late st Contact Info) Description 08/23/2025 12:45 PM EST Office Visit [facility] Electrophysiology [address] [place] [phone] [place] [address] [place] [address] [address] [place] [address] documented as of this encounter Visit Diagnoses Not on filedocumented in this encounter Care Teams Grade Checker Relationship Specialty Start Date End Date Alfred Cantu MD [address] [place] [address] [place] [address] PCP - General General Internal Medicine 08/29/22 Lyndsey Key MD [address] [place] [address] [address] [place] [address] Overhead Distribution Engineer Interventional Cardiology 08/29/22 Vik Corcoran MD [address] [place] [address] [address] [place] [address] Overhead Distribution Engineer Electrophysiology 05/19/24 documented as of this encounter
--- OUTSIDE RECORDS SUMMARY | 2025-02-18 10:42 | XMS_ITS | Encounter Summary ---
Author Organization [employer] ([place], [place], [place], [place]) Address [address] [place] [address] Care Team Providers Care Dairy Bacteriologist Name Role Phone Alfred Cantu MD Primary Care Provider [phone] Lyndsey Key MD Unavailable [phone] Vik Corcoran MD Unavailable Encounter Details Date Type Department Care Team (Late st Contact Info) Description 10/30/2018 Transcribed Document [facility] [place] [address] ProviderRashard MD [address] [place] [address] Social History Tobacco Use Types Packs/Day Years Used Date Smoking Tobacco: Never Assessed Comments Unknown Sex and Gender Information Value Date Recorded Sex Assigned at Not on file Legal Sex Female 1:15 PM CDT Gender Identity Not on file Sexual Orientation Not on file documented as of this encounter Miscellaneous Notes * Cerner Conversion Note - Rashard Gonzalez MD - 10/30/2018 12:59 PM CDT Patient: KATHY CARTER Age: 78 years Sex: Female : 1940 Associated Diagnoses: None Author: JOSE MEDRANO MD Subjective Looks okay today didn't have any symptoms sec coughing is better, but nasal cannula, afebrile, White count still up, Had multiple PVCs and nonsustained V. tach on the telemetry, denied any chest pain no short of breath orthostatic hypotension better No nausea no vomiting No chest pain, No dysuria Objective Intake and Output Intake & Output Totals Last 24 Hours (7a-7a) Intake (8 Events) Oral Fluids (925 mL) Oral Intake (360 mL) Output (4 Events) Urine Voided (Volume) (1050 mL) Input Total: 1285 mL Output Total: 1050 mL Balance: 235 mL VS/Measurements Vitals Signs (last 24 hrs) Last Charted Minimum Maximum Temp 97.4 (OCT 30 10:30) 97.4 (OCT 30 10:30) 98.4 (OCT 29 22:) Mon HR 100 (OCT 30 10:30) 41 (OCT 30 10:00) 102 (OCT 30 06:25) Resp Rate 20 (OCT 30 06:20) 16 (OCT 29 17:29) 20 (OCT 30 06:20) SBP 109 (OCT 30 10:30) 109 (OCT 30 06:25) H 142 (OCT 29 22:) DBP 69 (OCT 30 10:30) L 53 (OCT 29:) H 94 (OCT 30 06:20) MAP 85 (OCT 30 10:30) 81 (OCT 30 09:49) 107 (OCT 30 06:20) SpO2 95 (OCT 30 08:48) 94 (OCT 29 22:12) 96 (OCT 29 14:30) General: Alert and [...] affect. Results Review General results Interpretation: OCT 30 04:59 L 126 L 88 H 44 / 91 4.6 30 H 1.20 \ OCT 30 04:59 \ 11.7 / C 39.8 169 / 35.3 \ Labs (Last four charted values) WBC C 39.8 (OCT 30) C 39.7 (OCT 29) C 34.7 (OCT 28) H 23.9 (OCT 27) HB 11.7 (OCT 30) 12.2 (OCT 29) 12.7 (OCT 28) 12.0 (OCT 27) HCT 35.3 (OCT 30) 36.9 (OCT 29) 38.6 (OCT 28) 36.7 (OCT 27) Plt 169 (OCT 30) 174 (OCT 29) 187 (OCT 28) 185 (OCT 27) Na L 126 (OCT 30) L 128 (OCT 28) L 129 (OCT 27) L 129 (OCT 26) K 4.6 (OCT 30) 5.1 (OCT 28) 4.3 (OCT 27) 4.6 (OCT 18) Cl L 88 (OCT 30) L 92 (OCT 28) L 88 (OCT 27) L 95 (OCT 26) CO2 30 (OCT 30) 31 (OCT 28) H 34 (OCT 27) 24 (OCT 18) BUN H 44 (OCT 30) H 48 (OCT 28) H 42 (OCT 27) H 36 (OCT 26) Cr H 1.20 (OCT 30) 1.00 (OCT 28) H 1.10 (OCT 27) 1.00 (OCT 18) Glu R 91 (OCT 30) 93 (OCT 28) 104 (OCT 27) 105 (OCT 18) Ca 9.0 (OCT 30) 9.4 (OCT 28) [...] pericardial effusion. Impression and Plan leukocytosis worsenig , And oxygenation, high risk for pna but no significant symptoms, and recent AICD but looks ok sputum cx requested , the AICD pocket is ok CT chest noted blood cx ntg so far, appreciate ID consultation cont doxy for now will moniotr inhouse Multiple PVCs and nonsustained V. tach, d/w dr mason Would increase her beta ina, check magnesium level, Hypernatremia worse Will decrease Bumex Continue monitoring Acute kidney injury, on chronic stage II to 3, slightly worse today, In face of contrast, and ARBS diuresis Monitor very closely Degrees diuresis, cont stop the Aldactone and hold lisinpril Monitor in face of diuresis, RLL consolidation ,PNA ? orthostatic hypotension better s/p decrease her meds and severe MR with aggressive diuresis Will decrease her diuresis, soco compresing hose stable Acute respiratory failure hypoxic secondary to above improve Continue oxygen to keep sat more than 92 Symptomatically treatment s/p steroid taped decrease Diuresis, ct chest noted encourage spirometrey acute systolic chf - duration unknown - [...] mucinex anxiety - continue home prn valium Discussed with the EP c in-house to monitor her heart rate, and monitored her white count time spent: 29 min Electronically signed by Israel Walls Conversion Liberal [employer] Chair Cerner at 11/28/2022 5:28 PM CDT documented in this encounter Plan of Treatment Upcoming Encounters Date Type Department Care Team (Late st Contact Info) Description 08/23/2025 12:45 PM EST Office Visit [facility] Electrophysiology [address] [place] [phone] Vik Corcoran MD [address] [facility] [address] [place] [address] documented as of this encounter Visit Diagnoses Not on filedocumented in this encounter Care Teams Dairy Bacteriologist Relationship Specialty Start Date End Date Alfred Cantu MD [address] [place] [address] PCP - General General Internal Medicine 08/29/22 Lyndsey Key MD [address] [facility] [address] [place] [address] Lead Database Administrator Interventional Cardiology 08/29/22 Vik Corcoran MD [address] [facility] [address] [place] [id number] Lead Database Administrator Electrophysiology 05/19/24 documented as of this encounter
--- OUTSIDE RECORDS SUMMARY | 2025-02-18 10:42 | XMS_ITS | Encounter Summary ---
Author Organization [employer] ([place], [place], [place], [place]) Address [address] [place] [address] Care Team Providers Care Art Dealer Name Role Phone Alfred Cantu MD Primary Care Provider [phone] Lyndsey Key MD Unavailable [phone] Vik Corcoran MD Unavailable Encounter Details Date Type Department Care Team (Late st Contact Info) Description 10/30/2018 Transcribed Document [facility] [place] Family Medicine [facility], [facility] [place] [address] ProviderRashard MD [address] [place] [address] Social History Tobacco Use Types Packs/Day Years Used Date Smoking Tobacco: Never Assessed Comments Unknown Sex and Gender Information Value Date Recorded Sex Assigned at Not on file Legal Sex Female 1:15 PM CDT Gender Identity Not on file Sexual Orientation Not on file documented as of this encounter Miscellaneous Notes * Cerner Conversion Note - Rashard ProviderMD - 10/30/2018 9:17 AM CDT Patient: KATHY CARTER Age: 78 Years Sex: Female : 1940 Subjective Chief Complaint: Weak today Hypotension with getting up Physical Exam (1, 6, 12) NAD No JVD Oropharynx moist Decreased BS over bases irregular, nl S1, S2, 3/6 HSM +BS,soft trace edema Superficial incision dressing clean, no drainage, diffuse ecchymosis Vitals & Measurements T: 36.5 ??C TMIN: 36.4 ??C TMAX: 36.9 ??C HR: 102(Monitored) RR: 20 BP: 120/75 BP: 132/84(Supine) SpO2: 95% WT: 82.27 kg Assessment/Plan 1. 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 Acute systolic heart failure 3. Severe MR 4. Acute pneumonia,on IV antibiotics 10/30/18 Now in AFIB with RVR Intermittent [...] 1200 mg= 2 Tab, Oral, BID nystatin, [id number] Units= 10 mL, Swish and Swallow , [...] oral tablet, 500 mg= 1 Tab, Oral, [id number] Mucinex 600 mg oral tablet, extended release, [...] 174 / 36.9 \ Electronically signed by [facility] Conversion Laborer Construction Or Leak Gang Cerner at 11/28/2022 5:39 PM CDT documented in this encounter Plan of Treatment Upcoming Encounters Date Type Department Care Team (Late st Contact Info) Description 08/23/2025 12:45 PM EST Office Visit [facility] Electrophysiology [address] [place] [phone] Vik Corcoran MD [address] [place] [address] [place] [address] documented as of this encounter Visit Diagnoses Not on filedocumented in this encounter Care Teams Art Dealer Relationship Specialty Start Date End Date Alfred Cantu MD [address] [place] [address] PCP - General General Internal Medicine 08/29/22 Lyndsey Key MD [address] [place] [address] [address] Enrollment Specialist Interventional Cardiology 08/29/22 Vik Corcoran MD [address] [place] [address] [address] Enrollment Specialist Electrophysiology 05/19/24 documented as of this encounter
--- OUTSIDE RECORDS SUMMARY | 2025-02-18 10:42 | XMS_ITS | Encounter Summary ---
Author Organization [employer] ([place], [place], [place], [place]) Address [address] [place] [address] Care Team Providers Care Excavator Backhoe Operator Name Role Phone Alfred Cantu MD Primary Care Provider [phone] Lyndsey Key MD Unavailable [phone] Vik Corcoran MD Unavailable Encounter Details Date Type Department Care Team (Late st Contact Info) Description 10/27/2018 Transcribed Document [facility] [place] [address] ProviderRashard MD [address] [place] [address] Social History Tobacco Use Types Packs/Day Years Used Date Smoking Tobacco: Never Assessed Comments Unknown Sex and Gender Information Value Date Recorded Sex Assigned at Not on file Legal Sex Female 1:15 PM CDT Gender Identity Not on file Sexual Orientation Not on file documented as of this encounter Miscellaneous Notes * Cerner Conversion Note - Rashard ProviderMD - 10/27/2018 2:00 AM CDT Boom Boss Details Entered On: 10/27/2018 5:17 EDT Performed On: 10/27/2018 2:00 EDT by Lise Thorne RN Order Details Transport Mode Order Detail : Bed (including specialty) Isolation Precautions Order Detail : Contact precautions, Droplet precautions Order Detail : N/A IV Order Detail : 1 Oxygen Order Detail : 1 Nurse Collect Order Detail : 0 Lift/Transfer : Moderate assist Central Line Order Detail : No Room Service : Not Appropriate Arterial Line : No Lise Thorne RN - 10/27/2018 5:17 EDT Electronically signed by Kavita, [facility] Conversion Shank Maker Cerner at 11/28/2022 5:40 PM CDT documented in this encounter Plan of Treatment Upcoming Encounters Date Type Department Care Team (Late st Contact Info) Description 08/23/2025 12:45 PM EST Office Visit [facility] Electrophysiology [address] [place] [phone] Vik Corcoran MD [address] [place] [address] [address] [place] [address] documented as of this encounter Visit Diagnoses Not on filedocumented in this encounter Care Teams Excavator Backhoe Operator Relationship Specialty Start Date End Date Alfred Cantu MD [address] [place] [address] PCP - General General Internal Medicine 08/29/22 Lyndsey Key MD [address] [place] [address] [address] Epic Specialist Interventional Cardiology 08/29/22 Vik Corcoran MD [address] [place] [address] [address] Epic Specialist Electrophysiology 05/19/24 documented as of this encounter
--- OUTSIDE RECORDS SUMMARY | 2025-02-18 10:42 | XMS_ITS | Encounter Summary ---
Author Organization [employer] ([place], [place], [place], [place]) Address [address] [place] [address] Care Team Providers Care Expedition Supervisor Name Role Phone Alfred Cantu MD Primary Care Provider [phone] Lyndsey Key MD Unavailable [phone] Vik Corcoran MD Unavailable Encounter Details Date Type Department Care Team (Late st Contact Info) Description 05/07/2024 Outside Orders [facility] Central Scheduling [address] [place] [address] Julisa Abbott PA [address] [place] [address] Spinal stenosis, lumbar region with [...] Date Ezra rded Speak language other than [place] at home Not on file 08/29/2023 Want [...] Description 08/23/2025 12:45 PM EST Office Visit [facility] Electrophysiology [address] [place] [phone] Vik Corcoran MD [address] [place] [address] [address] [place], [place] [id number] documented as of this encounter Visit Diagnoses Diagnosis Spinal stenosis, lumbar region with neurogenic claudication- Primary documented in this encounter Care Teams Expedition Supervisor Relationship Specialty Start Date End Date Alfred Cantu MD [address] [place] [address] PCP - General General Internal Medicine 08/29/22 Lyndsey Key MD [address] [place] [address] [address] Resort Manager Interventional Cardiology 08/29/22 Vik Corcoran MD [address] [place] [address] [address] Resort Manager Electrophysiology 05/19/24 documented as of this encounter
--- OUTSIDE RECORDS SUMMARY | 2025-02-18 10:42 | XMS_ITS | Encounter Summary ---
Author Organization [employer] ([place], [place], [place], [place]) Address [address] [place] [address] Care Team Providers Care Fast Food Fry Cook Name Role Phone Alfred Cantu MD Primary Care Provider [phone] Lyndsey Key MD Unavailable [phone] Vik Corcoran MD Unavailable Encounter Details Date Type Department Care Team (Late st Contact Info) Description 10/30/2018 Transcribed Document [facility] Family [place] [facility] [place] [address] ProviderRashard MD [address] [place] [address] Social History Tobacco Use Types Packs/Day Years Used Date Smoking Tobacco: Never Assessed Comments Unknown Sex and Gender Information Value Date Recorded Sex Assigned at Not on file Legal Sex Female 1:15 PM CDT Gender Identity Not on file Sexual Orientation Not on file documented as of this encounter Miscellaneous Notes * Cerner Conversion Note - Rashard ProviderMD - 10/30/2018 3:50 PM CDT Sepsis Screening Tool Entered On: 10/30/2018 20:14 EDT Performed On: 10/30/2018 15:50 EDT by NAN POLANCO, RN Provider Notification Provider Notified of Concerns/Results : Critical value result Critical Result Details : WBC count is 39.8. dr bang is aware. NAN POLANCO, RN - 10/30/2018 20:13 EDT documented in this encounter Plan of Treatment Upcoming Encounters Date Type Department Care Team (Late st Contact Info) Description 08/23/2025 12:45 PM EST Office Visit [facility] Electrophysiology [address] [place] [phone] [place] [address] [place] [address] [address] [place] [address] documented as of this encounter Visit Diagnoses Not on filedocumented in this encounter Care Teams Fast Food Fry Cook Relationship Specialty Start Date End Date Alfred Cantu MD [address] [place] [address] PCP - General General Internal Medicine 08/29/22 Lyndsey Key MD [address] [place] [address] [address] [place] [address] Waterproofing Supervisor Interventional Cardiology 08/29/22 Vik Corcoran MD [address] [place] [address] [address] [place] [address] Waterproofing Supervisor Electrophysiology 05/19/24 documented as of this encounter
--- OUTSIDE RECORDS SUMMARY | 2025-02-18 10:43 | XMS_ITS | Encounter Summary ---
Author Organization [employer] ([place], [place], [place], [place]) Address [address] [place] [address] Care Team Providers Care Loss Claim Clerk Name Role Phone Alfred Cantu MD Primary Care Provider [phone] Lyndsey Key MD Unavailable Vik Corcoran MD Unavailable Encounter Details Date Type Department Care Team (Late st Contact Info) Description 10/22/2018 Transcribed Document [facility] Family Medicine [address] [place] [address] ProviderRashard MD [address] [place] [address] Social History Tobacco Use Types Packs/Day Years Used Date Smoking Tobacco: Never Assessed Comments Unknown Sex and Gender Information Value Date Recorded Sex Assigned at Not on file Legal Sex Female 1:15 PM CDT Gender Identity Not on file Sexual Orientation Not on file documented as of this encounter Miscellaneous Notes * Cerner Conversion Note - Rashard ProviderMD - 10/22/2018 9:41 AM CDT Patient: KATHY CARTER Age: 78 Years Sex: Female : 1940 Subjective Chief Complaint: Rested well. No complaints. Physical Exam (1, 6, 12) Gen: [NAD]. Eye: [PERRL, normal conjunctiva]. HENT: [Normocephalic, normal hearing, moist oral mucosa.]. Neck: [Supple, NT, no carotid bruits, no JVD.]. Lungs: [Decreased BS at bases, decreased expiratory wheezing]. Heart: [RRR, 3/6 HSM, +S4,mild edema]. Abd: [Soft, NT/ND, + BS, mild abdominal distention]. Skin: [Warm, dry, pink, no rashes]. Vitals & Measurements T: 36.7 ??C TMIN: 36.6 ??C TMAX: 36.9 ??C HR: 73(Monitored) HR: 73(Monitored) RR: 36 RR: 36 BP: 135/79 SpO2: 94% SpO2: 94% HT: 152.4 cm WT: 88.4 kg BMI: 38.06 Assessment/Plan Acute on Chronic Systolic HF exacerbation- NYHA Class III - Echo: (LVEF 25-30%) - On BB, ARB for more than one year - Spironolactone started. - Repeat Limited Echo-LVEF=15-20% NIC - [facility] 06/2017: Normal coronaries. - LBBB; QRS 160 ms VHD - Severe Mitral Regurgitation Community acquired PNA - Continue Zosyn, Azithromycin Hypokalemia Replace K PLAN: 10/22/18 Improving CHF Continue Lasix 40 mg IV TID for another day Replace K Patient is scheduled for BIV-ICD implant on 10/23/18 in afternoon. 10/21/18 Patient has Class I indication for BIV-ICD. - Explained B/R/A to patient and family, and they are agreeable. - Plan for this afternoon, if she can lay flat - Increase Lasix to 40 mg IV TID. Medications Inpatient acetaminophen, 325 mg= 1 Tab, Oral, Q6H, PRN aspirin, 81 mg= 1 Tab, Oral, Daily calcium gluconate calcium gluconate calcium gluconate Coreg, 50 mg= 2 Tab, Oral, BID diazePAM, 5 mg= 1 Tab, Oral, BID, PRN Diovan, 80 mg= 1 Tab, Oral, Daily DuoNeb 0.5 mg-2.5 mg/3 mL inhalation solution, 3 mL, Nebulized Inhalation , RT_Q6H, PRN DuoNeb 0.5 mg-2.5 mg/3 mL inhalation solution, 3 mL, Nebulized Inhalation , RT_Q6H heparin, 5000 Units= 1 mL, SubCutaneous, Q8HInt Lasix, 40 mg= 4 mL, IV Push, Q8H magnesium sulfate, 2 Gram= 50 mL, IV Piggyback, Q2H, PRN magnesium sulfate, 2 Gram= 50 mL, IV Piggyback, Daily, PRN Mucinex, 1200 mg= 2 Tab, Oral, BID Normal Saline Flush, 10 mL, IV Push, Q12H Normal Saline Flush, 10 mL, IV Push, See Comment, PRN nystatin, [id number] Units= 10 mL, Swish and Swallow , [...] mEq= 15 mL, Feeding Tube, Q2H, PRN potassium chloride extended release, 40 mEq= 2 Tab, Oral, 1-Time Pulmicort Respules, 0.5 mg= 2 mL, Nebulized Inhalation , BID sodium phosphate sodium phosphate spironolactone, 25 mg= 1 Tab, Oral, Daily Tessalon, 100 mg= 1 Cap, Oral, TID, PRN vancomycin + Sodium Chloride 0.9% intravenous solution 250 mL Zithromax, 500 mg= 2 Tab, Oral, Daily Zosyn + Sodium Chloride 0.9% intravenous solution 100 mL Home Advair Diskus 250 mcg-50 mcg inhalation [...] 1 Tab, Oral, Daily Lab Results OCT 22 03:09 L 127 L 87 18 / 91 L 3.1 32 0.90 \ OCT 21 05:27 \ 11.7 / H 14.6 225 / 36.4 \ Electronically signed by Interface, [facility] Conversion Project Control Analyst Cerner at 11/28/2022 5:30 PM CDT documented in this encounter Plan of Treatment Upcoming Encounters Date Type Department Care Team (Late st Contact Info) Description 08/23/2025 12:45 PM EST Office Visit [facility] Electrophysiology [address] [place] [phone] Vik Corcoran MD [address] [place] [address] [place] [address] documented as of this encounter Visit Diagnoses Not on filedocumented in this encounter Care Teams Loss Claim Clerk Relationship Specialty Start Date End Date Alfred Cantu MD [address] [place] [address] PCP - General General Internal Medicine 08/29/22 Lyndsey Key MD [address] [place] [address] [place] [id number] Returned Goods Inspector Interventional Cardiology 08/29/22 Vik Corcoran MD [address] [place] [address] [address] Returned Goods Inspector Electrophysiology 05/19/24 documented as of this encounter
--- OUTSIDE RECORDS SUMMARY | 2025-02-18 10:43 | XMS_ITS | Encounter Summary ---
Author Organization [employer] ([place], [place], [place], [place]) Address [address] [place] [address] Care Team Providers Care Thermocouple Tester Name Role Phone Alfred Cantu MD Primary Care Provider [phone] Lyndsey Key MD Unavailable [phone] Vik Corcoran MD Unavailable Encounter Details Date Type Department Care Team (Late st Contact Info) Description 10/21/2018 Transcribed Document [facility] [place] [address] ProviderRashard MD [address] [place] [address] Social History Tobacco Use Types Packs/Day Years Used Date Smoking Tobacco: Never Assessed Comments Unknown Sex and Gender Information Value Date Recorded Sex Assigned at Not on file Legal Sex Female 1:15 PM CDT Gender Identity Not on file Sexual Orientation Not on file documented as of this encounter Miscellaneous Notes * Cerner Conversion Note - Rashard ProviderMD - 10/21/2018 9:19 AM CDT Education-Surgery Entered On: 10/21/2018 12:02 EDT Performed On: 10/21/2018 9:19 EDT by JEAN CLAUDE CALDWELL RN Teaching/Learning Assessment Barriers To Learning : None evident Highest Level of Education : None Learning Style Preferences Patient : Verbal explanation JEAN CLAUDE CALDWELL RN - 10/21/2018 12:02 EDT Education Topics, Periop Preadmission Perioperative Education Grid Arrival Time/Place : Verbalizes understanding CAUTI : Verbalizes understanding IV's : Verbalizes understanding NPO Status/Directions : Verbalizes understanding Pain Management : Verbalizes understanding JEAN CLAUDE CALDWELL, BRANDEE - 10/21/2018 12:02 EDT documented in this encounter Plan of Treatment Upcoming Encounters Date Type Department Care Team (Late st Contact Info) Description 08/23/2025 12:45 PM EST Office Visit [facility] Electrophysiology [address] [place] [address] [place] [address] [place] [address] [address] [place], [place] [id number] documented as of this encounter Visit Diagnoses Not on filedocumented in this encounter Care Teams Thermocouple Tester Relationship Specialty Start Date End Date Alfred Cantu MD [address] [place] [address] PCP - General General Internal Medicine 08/29/22 [place] [address] [place] [address] [address] [place], [place] [id number] Investigator Interventional Cardiology 08/29/22 [place] [address] [place] [address] [address] [place], [place] [id number] Investigator Electrophysiology 05/19/24 documented as of this encounter
--- OUTSIDE RECORDS SUMMARY | 2025-02-18 10:43 | XMS_ITS | Encounter Summary ---
Author Organization [employer] ([place], [place], [place], [place]) Address [address] [place] [address] Care Team Providers Care Fabrication Welder Name Role Phone Alfred Cantu MD Primary Care Provider [phone] Lyndsey Key MD Unavailable [phone] Vik Corcoran MD Unavailable Encounter Details Date Type Department Care Team (Late st Contact Info) Description 08/16/2021 Transcribed Document [facility] Radiology [address] [place] [address] Brent Fishman MD [address] [place] [address] Social History Tobacco Use Types Packs/Day Years Used Date Smoking Tobacco: Never Assessed Comments Unknown Sex and Gender Information Value Date Recorded Sex Assigned at Not on file Legal Sex Female 1:15 PM CDT Gender Identity Not on file Sexual Orientation Not on file documented as of this encounter Miscellaneous Notes * Cerner Conversion Note - Brent Fishman MD - 08/16/2021 12:27 PM EST DATE OF SERVICE: 08/16/2021 INTRAOPERATIVE PETER REPORT PROCEDURALISTS: Dr. Key and Dr. Tam. PROCEDURE: Watchman procedure. DESCRIPTION OF PROCEDURE: The procedure was carried out in the cardiac cath lab radiology technologist with the patient under general anesthesia. The Charly Omniplane probe was passed easily and the images were acquired by Dr. Fishman. The aortic valve was tricuspid with normal mobile leaflets. There was mild aortic insufficiency with a central jet. There was no aortic stenosis with aortic valve max and mean gradients of 6 and 3 mmHg and an aortic valve area of 2.3 sq cm by planimetry. The aortic annulus measured 2.1 cm. The ascending aorta was 2.6 cm. The mitral valve leaflets were thickened, but mobile. The mitral annulus was normal size measuring 2.7 cm. There was no mitral stenosis with a mitral valve mean gradient of 2 mmHg and a mitral valve area of 3.9 sq cm by pressure half time. There was mild mitral regurgitation. The regurgitant jet was central. Left atrium was mildly enlarged. There were no clots noted in the left atrial appendage. Tricuspid valve morphology was normal. There was mild tricuspid regurgitation. Right atrium was normal in size. Interatrial septum was intact with a normal intact fossa ovalis. Color flow demonstrated no flow across the septum. Pulmonary valve was normal, and the interventricular septum was intact. Left ventricle was normal size with no regional wall motion abnormalities. Ejection fraction was 50% to 55%. Right ventricle was normal size and function. There were grade 2 atheromatous changes throughout the aorta. There was no aortic dissection seen. There were no pleural effusions. No pericardial fluid. The procedure was performed with echo guidance. Good visualization of the device being placed into the left atrial appendage. Following placement of the device, there was no residual flow into or out of the left atrial appendage. There was no pericardial effusion, and no other complication noted following the procedure. IMPRESSION: 1. Normal left ventricular size and function. No regional wall motion abnormalities. Ejection fraction of 50% to 55%. Normal right ventricular size and function. 2. No thrombus noted in left atrial appendage. 3. Mild aortic insufficiency, mitral regurgitation, and tricuspid regurgitation. 4. The procedure was performed with echo guidance. 5. Following the procedure, there was no residual flow into or out of the left atrial appendage. These findings were discussed with Dr. Tam and Dr. Key. /[id number] MD MARQUISE Guzmán/RADHA / MARQUISE / MODL /[id number] documented in this encounter Plan of Treatment Upcoming Encounters Date Type Department Care Team (Late st Contact Info) Description 08/23/2025 12:45 PM EST Office Visit [facility] Electrophysiology [address] [place] [address] [place] [address] [place] [address] [address] [place], [place] [id number] documented as of this encounter Visit Diagnoses Not on filedocumented in this encounter Care Teams Fabrication Welder Relationship Specialty Start Date End Date Alfred Cantu MD [address] [place] [address] PCP - General General Internal Medicine 08/29/22 [place] [address] [place] [address] [address] [place] [address] Plastic Parts Designer Interventional Cardiology 08/29/22 [place] [address] [place] [address] [address] [place], [place] [id number] Plastic Parts Designer Electrophysiology 05/19/24 documented as of this encounter
--- OUTSIDE RECORDS SUMMARY | 2025-02-18 10:43 | XMS_ITS | Encounter Summary ---
Author Organization [employer] ([place], [place], [place], [place]) Address [address] [place] [address] Care Team Providers Care Nursery School Teacher Name Role Phone Alfred Cantu MD Primary Care Provider [phone] Lyndsey Key MD Unavailable [phone] Vik Corcoran MD Unavailable Encounter Details Date Type Department Care Team (Late st Contact Info) Description 10/22/[address] [facility] Family Medicine [facility] [place] [address] ProviderRashard MD [address] [place] [address] Social History Tobacco Use Types Packs/Day Years Used Date Smoking Tobacco: Never Assessed Comments Unknown Sex and Gender Information Value Date Recorded Sex Assigned at Not on file Legal Sex Female 1:15 PM CDT Gender Identity Not on file Sexual Orientation Not on file documented as of this encounter Miscellaneous Notes * Cerner Conversion Note - Rashard ProviderMD - 10/22/2018 10:33 AM CDT Patient: KATHY CARTER Age: 78 years Sex: Female : 1940 Associated Diagnoses: None Author: LIZZ ZIMMERMAN, Subjective Ms. Carter was seen by me this morning, sob improving, no n/v, no abd pain, sleepy this morning. no chest pain. pt complains of vaginal yeast infection Objective Intake and Output Intake & Output Totals Last 24 Hours (7a-7a) Intake (28 Events) Medications (752.11 mL) Oral Intake (240 mL) Output (5 Events) Rae Catheter (175 mL) Urine Voided (Volume) (1310 mL) Input Total: 992.11 mL Output Total: 1485 mL Balance: -492.89 mL VS/Measurements Vitals Signs (last 24 hrs) Last Charted Minimum Maximum Temp 98.0 (OCT 22 00:00) 97.8 (OCT 21 20:00) 98.5 (OCT 21 16:00) Mon HR 73 (OCT 22 08:38) 63 (OCT 22 03:00) 90 (OCT 21 19:00) Resp Rate H 36 (OCT 22 08:38) 16 (OCT 21 11:01) H 51 (OCT 21 18:00) SBP 135 (OCT 22 06:00) 97 (OCT 22 01:00) H 150 (OCT 21 19:00) DBP 79 (OCT 22 06:00) L 58 (OCT 22 01:00) H 112 (OCT 21 19:00) MAP 101 (OCT 22 06:00) 71 (OCT 22 01:00) 123 (OCT 21 19:00) SpO2 94 (OCT 22 08:38) L 85 (OCT 22 08:35) 100 (OCT 21 14:32) General: Alert and oriented, No acute distress. [...] affect. Results Review General results Interpretation: OCT 22 03:09 L 127 L 87 18 / 91 L 3.1 32 0.90 \ OCT 22 03:09 \ L 11.1 / H 14.8 221 / L 33.4 \ Labs (Last four charted values) WBC H 14.8 (OCT 22) H 14.6 (OCT 21) HB L 11.1 (OCT 22) 11.7 (OCT 21) HCT L 33.4 (OCT 22) 36.4 (OCT 21) Plt 221 (OCT 14) 239 (OCT 21) 225 (OCT 21) Na L 127 (OCT 22) L 125 (OCT 21) L 128 (OCT 21) K L 3.1 (OCT 22) 3.9 (OCT 21) L 3.3 (OCT 21) L 3.4 (OCT 21) Cl L 87 (OCT 22) L 86 (OCT 21) L 89 (OCT 21) CO2 32 (OCT 22) 32 (OCT 21) 31 (OCT 21) BUN 18 (OCT 22) 13 (OCT 21) 12 (OCT 21) Cr 0.90 (OCT 22) 1.00 (OCT 21) 0.80 (OCT 21) Glu R 91 (OCT 22) H 111 (OCT 21) 90 (OCT 21) Ca 8.4 (OCT 22) 8.5 (OCT 21) L 8.3 (OCT 21) Lactic 0.8 (OCT 21) AST 18 (OCT 21) ALT 27 (OCT 21) ALK P 66 (OCT 21) T Bili 0.8 (OCT 21) PTN L 6.2 (OCT 21) ALB L 3.0 (OCT 21) Troponin H 0.079 (OCT 21) Radiology Results (Last 48 hours) [id number] -- 10/20/2018 23:00 CR Chest 1 Vw Portable (10/21/2018 05:51) Result: PORTABLE CHEST 10/21/2018 5:13 AM HISTORY: Shortness of breath.COMPARISON: None.FINDINGS: The heart is normal in size . The mediastinum isunremarkable . The lungs are clear . There is no pneumothorax . Theosseous structures are unremarkable . IMPRESSION: No acute cardiopulmonary process .Images reviewed, interpreted, and dictated by Dr. Destin Oreilly.Transcribed by Vernon Villanueva PA-C.I have personally viewed, interpreted and dictated the [...] implant, on 10/23 - continue iv lasix TID - monitor I&O and daily weights - cxr showing no significant edema - continue spironolactone,valsartan, coreg, aspirin RSV bronchitis - start solumedrol today - continue nebs and mucinex severe mitral regurgitation - cardiology consult community acquired pna - pt had been on antibiotics for a few days prior to admission - stop zosyn today, procal nml - complete azithro likely tomorrow. vaginal yeast infection -diflucan x 1 today thrush - nystatin swish and swallow history of asthma - prn nebs - add mucinex hyponatremia, poa - improved today - mointor closely with diuresis anxiety - continue home prn valium hypokalemia - replete hypomag - replete d/w rn time spent: 32 min discharge goals: improve sob, bi-V tomorrow. ok to transfer to telemetry [facility] Hospitalist pager- [phone] Electronically signed by Kavita [employer] Conversion Woven Blind Loom Tender Cerner at 11/28/2022 5:34 PM CDT documented in this encounter Plan of Treatment Upcoming Encounters Date Type Department Care Team (Late st Contact Info) Description 08/23/2025 12:45 PM EST Office Visit [facility] Electrophysiology [address] [place] [address] Vik Corcoran MD [address] [facility] [address] [place] [address] documented as of this encounter Visit Diagnoses Not on filedocumented in this encounter Care Teams Nursery School Teacher Relationship Specialty Start Date End Date Alfred Cantu MD [address] [place] [address] PCP - General General Internal Medicine 08/29/22 Lyndsey Key MD [address] [facility] [address] [place], [place] [address] Electromechanical Equipment Assembler Interventional Cardiology 08/29/22 Vik Corcoran MD [address] [facility] [place] [address] Electromechanical Equipment Assembler Electrophysiology 05/19/24 documented as of this encounter
--- OUTSIDE RECORDS SUMMARY | 2025-02-18 10:43 | XMS_ITS | Encounter Summary ---
Author Organization [employer] ([place], [place], [place], [place]) Address [address] [place] [address] Care Team Providers Care Textbook Associate Name Role Phone Alfred Cantu MD Primary Care Provider [phone] Lyndsey Key MD Unavailable [phone] Vik Corcoran MD Unavailable Encounter Details Date Type Department Care Team (Late st Contact Info) Description 08/16/2021 Transcribed Document [facility] Cardiology [address] [place] [address] [place] [address] [place] [address] [address] [place] [id number] Social History Tobacco Use Types Packs/Day Years Used Date Smoking Tobacco: Never Assessed Comments Unknown Sex and Gender Information Value Date Recorded Sex Assigned at Not on file Legal Sex Female 1:15 PM CDT Gender Identity Not on file Sexual Orientation Not on file documented as of this encounter Miscellaneous Notes * Cerner Conversion Note - Manuel Tam MD - 08/16/2021 11:15 AM EST DATE OF SERVICE: 08/16/2021 INDICATION: A 80-year-old female with atrial fibrillation and high risk for long-term anticoagulation due to repetitive falls. PROCEDURES PERFORMED: 1. Left atrial appendage closure using a 27 mm Watchman device. 2. Transseptal left heart catheterization. 3. Left atrial appendage angiography. OPERATORS: 1. Lyndsey Key MD. 2. Manuel Tam MD. PROCEDURAL DETAILS: 1. The patient was brought to the cardiac lab analyst and placed under general anesthesia, managed by the anesthesia staff physician. Preoperative and intraoperative PETER images were reviewed for device sizing. 2. Using ultrasound guidance, a 6-Mosotho sheath was inserted in the right femoral vein. A 0.032 inch guidewire was advanced to the superior vena cava. The 6-Mosotho sheath was removed and an 8-Mosotho Cerna transseptal sheath and dilator were inserted and advanced to the SVC. The wire was removed and a Brockenbrough transseptal needle was inserted and advanced to the distal aspect of the dilator. This system was withdrawn and positioned at the inferior posterior aspect of the thin portion of the atrial septum and transseptal puncture was performed. The needle and dilator were removed and the catheterization catheter was aspirated and flushed. 3. A 0.035 inch Amplatz extra-stiff wire was advanced through the sheath into the left upper pulmonary vein and the sheath was advanced to the ostium of the pulmonary vein. Heparin was administered to achieve a therapeutic ACT. Meanwhile, the Watchman sheath was prepared. 4. The transseptal Cerna sheath was removed and the tissue tract dilated and a 14-Mosotho sheath positioned in the femoral vein. 5. The Watchman delivery sheath was advanced over the wire and positioned at the ostium of the left upper pulmonary vein. Over the wire, a 5-Mosotho pigtail catheter was advanced just distal to the sheath tip. This system was then repositioned slightly inferiorly and the pigtail catheter was advanced into the left atrial appendage. The sheath was advanced to the ostium of the atrial appendage and left atrial appendage angiography was performed. Further sizing was assessed and device size was chosen and a delivery catheter was prepared. 6. The delivery sheath was advanced over the pigtail catheter into the left atrial appendage. The pigtail catheter was exchanged for the Watchman delivery catheter tunnel to the distal aspect of the delivery sheath. The sheath was retracted until a distal ball formation was achieved. There was slight retraction of the system for positioning and the sheath was then retracted and the device deployed. The position was assessed by echo and fluoroscopy and angiography was performed through the delivery sheath and showed an excellent position with stability and a normal tug test. Pass criteria were reviewed and met. The device was then deployed and remained stable. The delivery catheter and cable were withdrawn into the right side. Further assessment showed appropriate sizing, positioning, and stability. The catheter was removed and a Z-stitch closure was applied as the sheath was removed with good hemostasis. ASSESSMENT: Successful left atrial appendage closure using a 27 mm Watchman closure device. /[id number] Manuel Tam MD MWS/AQ / MWS / MODL /[id number] documented in this encounter Plan of Treatment Upcoming Encounters Date Type Department Care Team (Late st Contact Info) Description 08/23/2025 12:45 PM EST Office Visit [facility] Electrophysiology [address] [place] [address] Vik Corcoran MD [address] [place] [address] [address] [place] [id number] documented as of this encounter Visit Diagnoses Not on filedocumented in this encounter Care Teams Textbook Associate Relationship Specialty Start Date End Date Alfred Cantu MD [address] [place] [address] PCP - General General Internal Medicine 08/29/22 Lyndsey Key MD [address] [place] [address] [address] [place], [place] [id number] Tick Eradicator Interventional Cardiology 08/29/22 Vik Corcoran MD [address] [place] [address] [address] [place] [address] Tick Eradicator Electrophysiology 05/19/24 documented as of this encounter
--- OUTSIDE RECORDS SUMMARY | 2025-02-18 10:43 | XMS_ITS | Encounter Summary ---
Author Organization [employer] ([place], [place], [place], [place]) Address [address] [place] [address] Care Team Providers Care Operating Room Orderly Name Role Phone Alfred Cantu MD Primary Care Provider [phone] Lyndsey Key MD Unavailable [phone] Vik Corcoran MD Unavailable Encounter Details Date Type Department Care Team (Late st Contact Info) Description 10/22/2018 Transcribed Document [facility] [place] [facility] [place] [address] ProviderRashard MD [address] [place] [address] Social History Tobacco Use Types Packs/Day Years Used Date Smoking Tobacco: Never Assessed Comments Unknown Sex and Gender Information Value Date Recorded Sex Assigned at Not on file Legal Sex Female 1:15 PM CDT Gender Identity Not on file Sexual Orientation Not on file documented as of this encounter Miscellaneous Notes * Cerner Conversion Note - Rashard ProviderMD - 10/22/2018 5:45 PM CDT Spiritual Care Short Form Entered On: 10/22/2018 20:15 EDT Performed On: 10/22/2018 17:45 EDT by CAIT HOGAN Chaplain-Non Cert General Information, Spiritual Care Spiritual Care Referred by : initiated Ministry Provided to : Patient, Family/Significant other Intervention/Comment/Summary Points : Pre-surgery visit to patient, a family member was present with her. Patient has a strong renee and trusts that God will care for her during her procedure tomorrow and then bring about healing during her recovery. Patient is Independent Pentecostal and active in her protestant. Prayed with patient and family member. Spiritual/Emotional Acuity : Low Spiritual Framework : Well integrated, provides significant strength/resource Active in a Pentecostalism/Renee Group : Yes Cheondoism Preference : Other: Independent Pentecostal CAIT HOGAN, Mash Processing Operator-Non Cert - 10/22/2018 20:13 EDT Electronically signed by [facility] Conversion Severity Of Illness Coordinator Cerner at 11/28/2022 5:38 PM CDT documented in this encounter Plan of Treatment Upcoming Encounters Date Type Department Care Team (Late st Contact Info) Description 08/23/2025 12:45 PM EST Office Visit [facility] Electrophysiology [address] [place] [address] [place] [address] [place] [address] [address] [place] [address] documented as of this encounter Visit Diagnoses Not on filedocumented in this encounter Care Teams Operating Room Orderly Relationship Specialty Start Date End Date Alfred Cantu MD [address] [place] [address] PCP - General General Internal Medicine 08/29/22 [place] [address] [place] [address] [address] [place] [address] Intermediate Accountant Interventional Cardiology 08/29/22 [place] [address] [place] [address] [address] [place] [address] Intermediate Accountant Electrophysiology 05/19/24 documented as of this encounter
--- OUTSIDE RECORDS SUMMARY | 2025-02-18 10:43 | XMS_ITS | Encounter Summary ---
Author Organization [employer] ([place], [place], [place], [place]) Address [address] [place] [address] Care Team Providers Care Cooking Appliance Repair Technician Name Role Phone Alfred Cantu MD Primary Care Provider [phone] Lyndsey Key MD Unavailable [phone] iVk Corcoran MD Unavailable Encounter Details Date Type Department Care Team (Late st Contact Info) Description 10/24/2018 Transcribed Document [facility] [place] [facility] [place] [address] ProviderRashard MD [address] [place] [address] Social History Tobacco Use Types Packs/Day Years Used Date Smoking Tobacco: Never Assessed Comments Unknown Sex and Gender Information Value Date Recorded Sex Assigned at Not on file Legal Sex Female 1:15 PM CDT Gender Identity Not on file Sexual Orientation Not on file documented as of this encounter Miscellaneous Notes * Cerner Conversion Note - Rashard ProviderMD - 10/24/2018 5:00 PM CDT Chart Check - Review Order Profile Entered On: 10/24/2018 19:54 EDT Performed On: 10/24/2018 17:00 EDT by Marilyn James, RN Chart Check All Active Orders Reviewed : Yes Marilyn James, BRANDEE - 10/24/2018 19:54 EDT Electronically signed by Kavita [facility] Conversion Experience Specialist Cerner at 11/28/2022 5:47 PM CDT documented in this encounter Plan of Treatment Upcoming Encounters Date Type Department Care Team (Late st Contact Info) Description 08/23/2025 12:45 PM EST Office Visit [facility] Electrophysiology [address] [place] [address] [place] [address] [place] [address] [place] [address] documented as of this encounter Visit Diagnoses Not on filedocumented in this encounter Care Teams Cooking Appliance Repair Technician Relationship Specialty Start Date End Date Alfred Cantu MD [address] [place] [address] PCP - General General Internal Medicine 08/29/22 Lyndsey Key MD [address] [place] [address] [address] Naturalist Interventional Cardiology 08/29/22 Vik Corcoran MD [address] [place] [address] [address] Naturalist Electrophysiology 05/19/24 documented as of this encounter
--- OUTSIDE RECORDS SUMMARY | 2025-02-18 10:43 | XMS_ITS | Encounter Summary ---
Author Organization [employer] ([place], [place], [place], [place]) Address [address] [place] [address] Care Team Providers Care Commercial Pest Control Technician Name Role Phone Alfred Cantu MD Primary Care Provider [phone] Lyndsey Key MD Unavailable [phone] Vik Corcoran MD Unavailable Encounter Details Date Type Department Care Team (Late st Contact Info) Description 10/25/2018 Transcribed Document [facility] [place] [facility] [place] [address] ProviderRashard MD [address] [place] [address] Social History Tobacco Use Types Packs/Day Years Used Date Smoking Tobacco: Never Assessed Comments Unknown Sex and Gender Information Value Date Recorded Sex Assigned at Not on file Legal Sex Female 1:15 PM CDT Gender Identity Not on file Sexual Orientation Not on file documented as of this encounter Miscellaneous Notes * Cerner Conversion Note - Historical ProviderMD - 10/25/2018 5:00 PM CDT Chart Check - Review Order Profile Entered On: 10/25/2018 20:09 EDT Performed On: 10/25/2018 17:00 EDT by Marilyn James, BRANDEE Chart Check All Active Orders Reviewed : Yes Marilyn James, BRANDEE - 10/25/2018 20:09 EDT Electronically signed by [facility] Conversion Yarn Spinner Cerner at 11/28/2022 5:46 PM CDT documented in this encounter Plan of Treatment Upcoming Encounters Date Type Department Care Team (Late st Contact Info) Description 08/23/2025 12:45 PM EST Office Visit [facility] Electrophysiology [address] [place] [phone] [place] [address] [place] [address] [address] [place] [address] documented as of this encounter Visit Diagnoses Not on filedocumented in this encounter Care Teams Commercial Pest Control Technician Relationship Specialty Start Date End Date Alfred Cantu MD [address] [place] [address] PCP - General General Internal Medicine 08/29/22 Lyndsey Key MD [address] [place] [address] [address] Show Jumping Instructor Interventional Cardiology 08/29/22 Vik Corcoran MD [address] [place] [address] [address] Show Jumping Instructor Electrophysiology 05/19/24 documented as of this encounter
--- OUTSIDE RECORDS SUMMARY | 2025-02-18 10:43 | XMS_ITS | Encounter Summary ---
Author Organization [employer] ([place], [place], [place], [place]) Address [address] [place] [address] Care Team Providers Care Assistant Professor Of Dietetics Name Role Phone Alfred Cantu MD Primary Care Provider [phone] Lyndsey Key MD Unavailable [phone] Vik Corcoran MD Unavailable Encounter Details Date Type Department Care Team (Late st Contact Info) Description 10/22/2018 Transcribed Document [facility] [place] [address] [place] [address] ProviderRashard MD [address] [place] [address] Social History Tobacco Use Types Packs/Day Years Used Date Smoking Tobacco: Never Assessed Comments Unknown Sex and Gender Information Value Date Recorded Sex Assigned at Not on file Legal Sex Female 1:15 PM CDT Gender Identity Not on file Sexual Orientation Not on file documented as of this encounter Miscellaneous Notes * Cerner Conversion Note - Rashard ProviderMD - 10/22/2018 1:28 PM CDT Care Management Assessment/Plan Entered On: 10/22/2018 13:28 EDT Performed On: 10/22/2018 13:28 EDT by CONNIE LIVE, RN Care Management Note Anticipated Discharge Date : 10/23/2018 15:00 EDT Care Management Note : improving chf. severe mitral regurg. nicm bipap/02 3L nc. zithromax. lasix iv q 8 hr. PT/OT consults. biv icd tomorrow. Care Management Note Report : CONNIE LIVE RN - 10/21/18 13:09:33 readmit risk: moderate 57. transfer from the medical center. acute excerbation systolic heart failure. ef 25-30%. severe mitral regurg. severe nicm. CAP. for biv icd today. bipap 50%/02 4-6L nc. zithromax po. zosyn iv. ca gluconate iv x 2. kcl 20meq x 1. na phos iv x 1. PT consult. spoke with Barbara. explained role of case management. pt resides in [facility]. she is adl independent. drives car. has cane, walker & cpap provided by Kim [facility]. no current home health or previous rehab stays. discussed dc planning rehab vs home health depending on progress. pt has medicare primary. she advises she has [employer] insurance. notified Aubrie, pt advocate for inclusion in records. spoke with bedside RNMagda. Documentation Status Complete : Yes CONNIE LIVE RN - 10/22/2018 13:28 EDT documented in this encounter Plan of Treatment Upcoming Encounters Date Type Department Care Team (Late st Contact Info) Description 08/23/2025 12:45 PM EST Office Visit [facility] Electrophysiology [address] [place] [address] Vik Corcoran MD [address] [facility] [address] [place] [address] documented as of this encounter Visit Diagnoses Not on filedocumented in this encounter Care Teams Assistant Professor Of Dietetics Relationship Specialty Start Date End Date Alfred Cantu MD [address] [place] [address] PCP - General General Internal Medicine 08/29/22 Lyndsey Key MD [address] [facility] [address] [place] [address] Arboriculture Instructor Interventional Cardiology 08/29/22 Vik Corcoran MD [address] [facility] [address] [place] [address] Arboriculture Instructor Electrophysiology 05/19/24 documented as of this encounter
--- OUTSIDE RECORDS SUMMARY | 2025-02-18 10:43 | XMS_ITS | Encounter Summary ---
Author Organization [employer] ([place], [place], [place], [place]) Address [address] [place] [address] Care Team Providers Care Property Clerk Name Role Phone Alfred Cantu MD Primary Care Provider [phone] Lyndsey Kye MD Unavailable [phone] Vik Corcoran MD Unavailable Encounter Details Date Type Department Care Team (Late st Contact Info) Description 10/22/2018 Transcribed Document [facility] [place] [facility] [address] ProviderRashard MD [address] [place] [address] Social History Tobacco Use Types Packs/Day Years Used Date Smoking Tobacco: Never Assessed Comments Unknown Sex and Gender Information Value Date Recorded Sex Assigned at Not on file Legal Sex Female 1:15 PM CDT Gender Identity Not on file Sexual Orientation Not on file documented as of this encounter Miscellaneous Notes * Cerner Conversion Note - Rashard ProviderMD - 10/22/2018 2:57 PM CDT Treatment Intervention, PT Entered On: 11/01/2018 16:11 EDT Performed On: 11/01/2018 16:07 EDT by JENNIE PETER PT General Information, PT Visit Type, PT : Treatment Note Patient Orders : Order Date Order Ordering 10/21/2018 05:14 PT Evaluation and Treatment Ordered By: KENNETH OSBORN MD 10/22/2018 14:57 PT Additional Treatment Ordered By: CAITY SMALL PT 10/24/2018 12:11 PT Evaluation and Treatment Ordered By: NAZANIN ORTIZ MD 10/25/2018 08:05 Consult to Physical Therapy Ordered By: JOSE MEDRANO MD Active Diagnoses : 10/27/2018 00:00 Shortness of breath Admission Date : 10/20/2018 23:00 Assisted by, PT : distribution technician/aide Personal Devices : Personal Devices No Devices Recorded Assistive Devices : Assistive Devices No Devices Recorded Precautions in Place : Fall prevention measures Isolation Maintained : Droplet JENNIE PETER, PT - 11/01/2018 16:07 EDT General Status Patient Received Status : Up in chair Treatment Start Time : 11/01/2018 14:08 EDT Patient Left Status : RN/PCT informed, Family/Visitors at bedside, All needs met and within reach, Other: Pt on BSC with call tucker in lap and friend aware to get SHEET TURNER if needed (Comment: Friend visiting [JENNIE PETER, PT - 11/01/2018 16:07 EDT] ) Treatment End Time : 11/01/2018 14:23 EDT Treatment Time : 15 Minute(s) Actual Treatment Time : 15 Minute(s) JENNIE PETER, PT - 11/01/2018 16:07 EDT Functional Mobility Mobility Grid Sit to Stand : Rehab Modified independence Sit to Supine : Rehab Modified independence JENNIE PETER, PT - 11/01/2018 16:07 EDT Gait Training/Assessment, PT Weight Bearing Status Maintained : Yes Weight Bearing Status : Full Gait Assistance Level : Assist, minimal Walking Distance : 150' Ambulatory Devices : Gait belt, Walker, front wheel Gait Deviations : Yes Gait Training Comment : Pt is slightly unsteady with gait and needs Min A to re-direct walker and not go into the wrong room. JENNIE PETER, PT - 11/01/2018 16:07 EDT Activity Tolerance, PT Activity Comment : Better activity today by amb in hallway instead of just getting up to the chair. JENNIE EPTER, PT - 11/01/2018 16:07 EDT Cognitive Treatment, PT Orientation : Oriented x 4 Safety/Judgment Findings, PT : Fair Follows Basic Command Findings, PT : Yes JENNIE PETER, PT - 11/01/2018 16:07 EDT Edu Topics Physical Therapy Education Grid Balance Training : Needs further teaching Bed Mobility Training : Needs further teaching Gait Training : Needs further teaching Role of Physical Therapy : Verbalizes understanding Therapeutic Exercises : Needs further teaching Transfer Training : Needs further teaching JENNIE PETER, PT - 11/01/2018 16:07 EDT Indication Assesessment, PT Physical Therapy Indicated : Yes BRITTANI JENNIE, PT - 11/01/2018 16:07 EDT Plan of Care, PT PT Tx Plan/Goals Established w Patient : Yes JENNIE PETER, PT - 11/01/2018 16:07 EDT Short Term Goals Ambulation STG Grid Goal #1 Device : Walker, front wheel Distance : 375' Assist : Supervision or set-up Date to Meet : 10/31/2018 EDT Goal Status : Progressing, continue Comment : 10/24/18 JENNIE PETER, PT - 11/01/2018 16:07 EDT Assisted Goals Ambulation LTG Grid Goal #1 Device : None Distance : 375' Assist : Supervision or set-up Date to Meet : 11/07/2018 EDT Goal Status : Progressing, continue Comment : Revised 10/23/18 JENNIE PETER, PT - 11/01/2018 16:07 EDT Treatment Note Subjective Comment : Pt agrees to amb today. During amb she states, I think you all might be right. I may need to go to a little bit of rehab before I go home . Assessment : Pt having insight into her need for follow up care prior to going home. Plan for Treatment : Cont PTx BRITTANI JENNIE, PT - 11/01/2018 16:07 EDT Pain Assessment Pain Scaled Used : 0-10 Pain scale Pain Score Pre-Intervention : 0 Pain Score During-Intervention : 0 Pain Score Post-Intervention. : 0 JENNIE PETER, PT - 11/01/2018 16:07 EDT Image 1 - Images currently included in the form version of this document have not been included in the text rendition version of the form. Anticipated Discharge Needs, OT/PT Anticipated Discharge to OT : Unit, rehabilitation JENNIE PETER, PT - 11/01/2018 16:[address] [facility] Charg[facility] PT Therap. Exercise 15 min : 1 JENNIE PETER, PT - 11/01/2018 16:07 EDT documented in this encounter Plan of Treatment Upcoming Encounters Date Type Department Care Team (Late st Contact Info) Description 08/23/2025 12:45 PM EST Office Visit [facility] Electrophysiology [address] [place] [phone] [place] [address] [place] [address] [address] documented as of this encounter Visit Diagnoses Not on filedocumented in this encounter Care Teams Property Clerk Relationship Specialty Start Date End Date Alfred Cantu MD [address] [place] [address] PCP - General General Internal Medicine 08/29/22 [place] [address] [place] [address] [address] Aviation Tactical Readiness Officer Interventional Cardiology 08/29/22 Vik Corcoran MD [address] [place] [address] [address] Aviation Tactical Readiness Officer Electrophysiology 05/19/24 documented as of this encounter
--- OUTSIDE RECORDS SUMMARY | 2025-02-18 10:43 | XMS_ITS | Clinical Summary ---
Author Organization [employer] ([place], [place], [place], [place]) Address [address] [place] [address] Care Team Providers Care Mechanical Test Engineer Name Role Phone Alfred Cantu MD Primary Care Provider [phone] Lyndsey Key MD Unavailable [phone] Gali Corcoran MD Unavailable Allergies Active Allergy Reactions Criticality Noted Date [...] Diagnosed Date Resolved Date Recurrent falls 10/03/2022 Encounters Date Type Department Care Team Description 02/17/2025 1:00 PM EDT - 02/17/2025 11:59 PM EDT Hospital Encounter [facility] Non-Invasive Cardiology [address] [place] [address] Gali Corcoran MD Dilated cardiomyopathy (HCC) Discharge Disposition: Home or Self Care 02/17/2025 10:45 AM EDT Office Visit [facility] Electrophysiology [address] [place] [phone] Gali Corcoran MD Encounter for adjustment or management of cardiac device (Primary Dx); Dilated cardiomyopathy (HCC) 02/17/2025 Travel 01/14/2025 6:00 AM EDT Clinical Support [facility] Electrophysiology [address] [place] [phone] Baron Moreno MD Encounter for adjustment or management of cardiac device (Primary Dx); A-fib; parosyxmal; NICM (nonischemic cardiomyopathy); Chronic systolic congestive heart failure (HCC); AICD (automatic cardioverter/defibrill ator) present 01/10/2025 Telephone [facility] Cardiology [address] [place] [phone] Gali Corcoran MD Advice Only 01/07/2025 Telephone [facility] Cardiology [address] [place] [phone] Lyndsey Key MD clearance 12/13/2024 5:00 AM EDT Clinical Support [facility] Electrophysiology [address] [place] [phone] Gali Corcoran MD Encounter for adjustment or management of cardiac device (Primary Dx); A-fib; parosyxmal; NICM (nonischemic cardiomyopathy); Chronic systolic congestive heart failure (HCC); AICD (automatic cardioverter/defibrill ator) present 11/26/2024 Telephone [facility] Electrophysiology [address] [place] [phone] Alejandro Lobo RN Advice Only from Last 3 Months Family History Medical History Relation Name Comments Cancer Father Leukemia Relation Name Status Comments Father Social History Tobacco Use Types Packs/Day Years [...] Date Ezra rded Speak language other than Chadian at home Not on file 08/29/2023 Want [...] Office Visit [facility] Electrophysiology [address] [place] [address] Gali Corcoran MD [address] [place] [address] [address] [place] [address] Health Maintenance Due Date Last Done Comments Medicare Initial AWV G0438 DXA SCAN 1940 Depression Screening (12+) 1954 DTAP/TDAP/TD VACCINES (1 - Tdap) 1961 Shingles Vaccine (Zoster) (1 of 2) 1992 Respiratory Syncytial Virus (RSV) Adult or (1 - 1-dose 75+ series) 2017 COVID-19 VACCINE ( season) 04/11/202411/2020, 09/14/2020 Falls Risk Screening 08/11/2024 Influenza Vaccine (#1) 2025 Tobacco Cessation Counseling and Screening (12+) 02/17/2026 02/17/2025 Pneumococcal 50+ years Completed 8, 08/11/2012, 08/11/2010 Medical Devices Implanted Type Area Field Hockey And Lacrosse Coach Device Identifier Shelf Expiration Date Model / Serial / Lot Icd-10/23/2018 Implanted:2018 by Esteban Castillo MD (Quantity not on file) ICD [employer] CLARIA QUAD / [id number] / Procedures Procedure Name Priority Date/Time Associated [...] 1940 Age: 84 year(s) Corporate ID Number: [id number] Gender Female Extra Hand: Julita Bravo Height: [address] Referring Physician: GALI CORCORAN MD Weight: 172 [...] 0.81 m/s E/A ratio: 1.24 m/s Volume [id number] LV length: 7.14 cm ml Volume ygcuohek37.22 ml LVOT diameter: 1.68 cm Normal sized [...] Valve TR velocity: 3.06 m/s TR gradient: 37.11406 mmHg Estimated RAP: 3 mmHg RVSP: 40.5 [...] 1940 Age: 84 year(s) Corporate ID Number: [id number] Gender Female Extra Hand: Julita Bravo Height: 62 inches [facility] Referring Physician: GALI CORCORAN MD [...] 0.81 m/s E/A ratio: 1.24 m/s Volume [id number] LV length: 7.14 cm ml Volume kbgrwowv63.22 ml LVOT diameter: 1.68 cm Normal sized [...] Valve TR velocity: 3.06 m/s TR gradient: 37.85505 mmHg Estimated RAP: 3 mmHg RVSP: 40.5 [...] 3 Months Insurance MEDICARE PART A B [employer] SR SUPP GENERIC MCR SUPP Care Teams Mechanical Test Engineer Relationship Specialty Start Date End Date Alfred Cantu MD [address] [place] [id number] PCP - General General Internal Medicine 08/29/22 Lyndsey Key MD [address] [place] [address] [address] Slate Splitter Interventional Cardiology 08/29/22 Gali Corcoran MD [address] [place] [address] [address] Slate Splitter Electrophysiology 05/19/24
--- OUTSIDE RECORDS SUMMARY | 2025-02-18 10:43 | XMS_ITS | Encounter Summary ---
Author Organization [employer] ([place], [place], [place], [place]) Address [address] [place] [address] Care Team Providers Care Heading Saw Operator Name Role Phone Alfred Cantu MD Primary Care Provider [phone] Lyndsey Key MD Unavailable [phone] Vik Corcoran MD Unavailable Encounter Details Date Type Department Care Team (Late st Contact Info) Description 10/26/2018 Transcribed Document [facility] [place] [address] ProviderRashard MD [address] [place] [address] Social History Tobacco Use Types Packs/Day Years Used Date Smoking Tobacco: Never Assessed Comments Unknown Sex and Gender Information Value Date Recorded Sex Assigned at Not on file Legal Sex Female 1:15 PM CDT Gender Identity Not on file Sexual Orientation Not on file documented as of this encounter Miscellaneous Notes * Cerner Conversion Note - Rashard ProviderMD - 10/26/2018 2:24 PM CDT Patient: KATHY CARTER Age: 78 years Sex: Female : 1940 Associated Diagnoses: None Author: JOSE MEDRANO MD Subjective Breathing is better, still coughing, on 2 L oxygen Bleeding from the pacemaker site Good urine output, creatinine stable sodium is better Afebrile Did not ambulate with a physical therapy yesterday MUCH No nausea no vomiting No chest pain, No dysuria Objective Intake and Output Intake & Output Totals Last 24 Hours (7a-7a) Intake (1 Events) Oral Intake (120 mL) Output (0 Events) No output events found in the last 24 hours. Input Total: 120 mL Output Total: 0 mL Balance: 120 mL VS/Measurements Vitals Signs (last 24 hrs) Last Charted Minimum Maximum Temp 97.7 (OCT 26 09:57) 97.7 (OCT 26 09:57) 97.6 (OCT 25 18:44) Mon HR 80 (OCT 26 11:09) 49 (OCT 26 07:35) 90 (OCT 25 18:44) Resp Rate 20 (OCT 26 09:57) L 0 (OCT 25 20:11) 20 (OCT 25:44) SBP 121 (OCT 26 09:57) L 88 (OCT 26 05:20) H 143 (OCT 25 21:38) DBP 74 (OCT 26 09:57) L 58 (OCT 26 05:20) 81 (OCT 26 07:35) MAP 85 (OCT 26 09:57) 64 (OCT 26 05:20) 111 (OCT 25 21:38) SpO2 95 (OCT 26 09:57) L 92 (OCT 25 17:06) 96 (OCT 25 16:52) General: Alert and oriented, No acute distress. [...] affect. Results Review General results Interpretation: OCT 26 06:14 L 129 L 95 H 36 / 105 4.6 24 1.00 \ OCT 26 06:14 \ 13.3 / H 18.9 170 / 43.7 \ Labs (Last four charted values) WBC H 18.9 (OCT 18) H 23.8 (OCT 17) H 29.3 (OCT 16) H 18.3 (OCT 15) HB 13.3 (OCT 18) 11.6 (OCT 17) 11.6 (OCT 16) 12.4 (OCT 15) HCT 43.7 (OCT 18) 35.2 (OCT 17) 35.0 (OCT 16) 37.9 (OCT 15) Plt 170 (OCT 18) 196 (OCT 17) 253 (OCT 16) 225 (OCT 15) Na L 129 (OCT 18) L 127 (OCT 17) L 127 (OCT 16) L 125 (OCT 15) K 4.6 (OCT 18) 4.8 (OCT 17) 4.0 (OCT 16) 4.4 (OCT 15) Cl L 95 (OCT 18) L 90 (OCT 17) L 87 (OCT 16) L 88 (OCT 15) CO2 24 (OCT 18) 31 (OCT 17) 30 (OCT 16) 28 (OCT 15) BUN H 36 (OCT 18) H 36 (OCT 17) H 35 (OCT 16) 21 (OCT 15) Cr 1.00 (OCT 18) 1.00 (OCT 17) H 1.10 (OCT 16) 0.90 (OCT 15) Glu R 105 (OCT 18) H 151 (OCT 17) H 132 (OCT 16) H 147 (OCT 15) Ca 8.9 (OCT 18) 8.6 (OCT 17) 8.8 (OCT 16) 8.7 (OCT 15) Lactic 0.8 (OCT 21) AST 18 (OCT [...] seen. Trace pericardial effusion. Impression and Plan Acute respiratory failure hypoxic secondary to above Continue oxygen to keep sat more than 92 Symptomatically treatment steroid taped Diuresis, Chest x-ray on 10/24 noted with worsening bilateral perihilar opacity, will repeat that today she is high risk to develop a bacterial pneumonia(.wbc is be tter though )we'll don't believe her symptoms related to volume congestion leukocytosis sterodi infectios ractive versus infectious, chest x-ray on 10/24 noted, as mentioned above discussed for secondary bacterial pneumonia afebrile MRI respiratory symptoms improving, I'm we will repeat chest x-ray today, Follow-up CBC hyponatremia, poa, ongoing, - Improving, continue monitor in face of diuresis, Acute kidney injury,better In face of contrast, and ARBS diuresis Monitor very closely Adjust medication cont stop the Aldactone and resume lisinpril low dose as bp allow Monitor in face of diuresis, so far [...] zosyn stopped, procal nml - s.p azithro repeat cxr vaginal yeast infection -diflucan x 1 on 10/22 thrush - nystatin swish and swallow history of asthma - prn nebs - mucinex anxiety - continue home prn valium Physical therapy to work with her, she would like to go home but she refused to be discharged today, case management work and on home health, probably she will need oxygen on discharge home Expecting home tomorrow Resume heparin DVT prophylaxis, d/w rn\ time spent: 29 min documented in this encounter Plan of Treatment Upcoming Encounters Date Type Department Care Team (Late st Contact Info) Description 08/23/2025 12:45 PM EST Office Visit [facility] Electrophysiology [address] [place] [phone] Vik Corcoran MD [address] [facility] [address] [place] [address] documented as of this encounter Visit Diagnoses Not on filedocumented in this encounter Care Teams Heading Saw Operator Relationship Specialty Start Date End Date Alfred Cantu MD [address] [place] [address] PCP - General General Internal Medicine 08/29/22 Lyndsey Key MD [address] [facility] [address] [place] [address] Casting Cleaner Interventional Cardiology 08/29/22 Vik Corcoran MD [address] [facility] [address] [place] [address] Casting Cleaner Electrophysiology 05/19/24 documented as of this encounter
--- OUTSIDE RECORDS SUMMARY | 2025-02-18 10:43 | XMS_ITS | Encounter Summary ---
Author Organization [employer] ([place], [place], [place], [place]) Address [address] [place] [address] Care Team Providers Care Relief Operator Name Role Phone Alfred Cantu MD Primary Care Provider [phone] Lyndsey Key MD Unavailable Vik Corcoran MD Unavailable Encounter Details Date Type Department Care Team (Late st Contact Info) Description 10/25/2018 Transcribed Document [facility] Family Medicine [facility] [place] [address] ProviderRashard MD [address] [place] [address] Social History Tobacco Use Types Packs/Day Years Used Date Smoking Tobacco: Never Assessed Comments Unknown Sex and Gender Information Value Date Recorded Sex Assigned at Not on file Legal Sex Female 1:15 PM CDT Gender Identity Not on file Sexual Orientation Not on file documented as of this encounter Miscellaneous Notes * Cerner Conversion Note - Rashard ProviderMD - 10/25/2018 2:00 AM CDT Calender Wind Up Helper Details Entered On: 10/25/2018 0:27 EDT Performed On: 10/25/2018 2:00 EDT by YASHIRA CABRAL RN Order [...] Line : No YASHIRA CABRAL RN - 10/25/2018 0:27 EDT Electronically signed by [facility], [facility] Conversion Instrumentation Technician Cerner at 11/28/2022 5:28 PM CDT documented in this encounter Plan of Treatment Upcoming Encounters Date Type Department Care Team (Late st Contact Info) Description 08/23/2025 12:45 PM EST Office Visit [facility] Electrophysiology [address] [place] [phone] Vik Corcoran MD [address] [place] [address] [address] [place] [address] documented as of this encounter Visit Diagnoses Not on filedocumented in this encounter Care Teams Relief Operator Relationship Specialty Start Date End Date Alfred Cantu MD [address] [place] [address] PCP - General General Internal Medicine 08/29/22 Lyndsey Key MD [address] [place] [address] [address] Overhead Door Technician Interventional Cardiology 08/29/22 Vik Corcoran MD [address] [place] [address] [address] Overhead Door Technician Electrophysiology 05/19/24 documented as of this encounter
--- OUTSIDE RECORDS SUMMARY | 2025-02-18 10:43 | XMS_ITS | Encounter Summary ---
Author Organization [employer] ([place], [place], [place], [place]) Address [address] [place] [address] Care Team Providers Care Enterprise Systems Engineer Name Role Phone Alfred Cantu MD Primary Care Provider [phone] Lyndsey Key MD Unavailable [phone] Vik Corcoran MD Unavailable Encounter Details Date Type Department Care Team (Late st Contact Info) Description 10/24/2018 Transcribed Document [facility] [place] [address] ProviderRashard MD [address] [place] [address] Social History Tobacco Use Types Packs/Day Years Used Date Smoking Tobacco: Never Assessed Comments Unknown Sex and Gender Information Value Date Recorded Sex Assigned at Not on file Legal Sex Female 1:15 PM CDT Gender Identity Not on file Sexual Orientation Not on file documented as of this encounter Miscellaneous Notes * Cerner Conversion Note - Rashard ProviderMD - 10/24/2018 12:11 PM CDT Evaluation, Physical Therapy Entered On: 10/24/2018 16:41 EDT Performed On: 10/24/2018 16:08 EDT by LAURITA DAVIDSON, PT General Information, PT Visit Type, PT : Re-evaluation Patient Orders : Order Date Order Ordering 10/21/2018 05:14 PT Evaluation and Treatment Ordered By: KENNETH OSBORN MD 10/22/2018 14:57 PT Additional Treatment Ordered By: CAITY SMALL PT 10/24/2018 12:11 PT Evaluation and Treatment Ordered By: NAZANIN ORTIZ MD Active Diagnoses : No Qualifying Diagnoses Therapy Diagnosis, PT : Impaired functional mobility following insertion of pacemaker. Admission Date : 10/20/2018 23:00 Assisted by, PT : catechist/aide Personal Devices : Personal Devices No Devices Recorded Assistive Devices : Assistive Devices No Devices Recorded Isolation Maintained : Droplet General Information Comment, PT : 10/23/18 Pacemaker insertion. LAURITA DAVIDSON, PT - 10/24/2018 16:08 EDT General Status Patient Received Status : Up in chair Treatment Start Time : 10/24/2018 15:58 EDT Patient Left Status : Supine in bed, RN/PCT informed, All needs met and within reach RN/PCT Informed Comment : Deepthi Treatment End Time : 10/24/2018 16:21 EDT Treatment Time : 23 Minute(s) LAURITA DAVIDSON, PT - 10/24/2018 16:08 EDT Lower Extremity RLE Active ROM : WFL Right LE Strength : WFL LLE Active ROM : WFL Left LE Strength : WFL LAURITA DAVIDSON, PT - 10/24/2018 16:08 EDT Functional Mobility Mobility Grid Bed Scooting : Rehab Minimal assistance Supine to Sit : Rehab Minimal assistance Sit to Stand : Rehab Minimal assistance Bed to Chair : Rehab Minimal assistance Chair to Bed : Rehab Minimal assistance Stand to Sit : Rehab Minimal assistance Sit to Supine : Rehab Minimal assistance LAURITA DAVIDSON, PT - 10/24/2018 16:08 EDT Gait Training/Assessment, PT Weight Bearing Status Comment : (L) UE in sling Gait Assistance Level : Assist, minimal Walking Distance : 40' with unsteadiness. Ambulatory Devices : Gait belt, Walker, front wheel Gait Deviations : Yes Left Lower Gait Deviation : [place], decreased Right Lower Gait Deviation : [place], decreased LAURITA DAVIDSON, PT - 10/24/2018 16:08 EDT Neurological/Sensory Overall Sensory Response : Intact LAURITA DAVIDSON, PT - 10/24/2018 16:08 EDT Cognition Assessment, PT Orientation : Oriented x 4 LAURITA DAVIDSON, PT - 10/24/2018 16:08 EDT Edu Topics Physical Therapy Education Grid Role of Physical Therapy : Verbalizes understanding LAURITA DAVIDSON, PT - 10/24/2018 16:08 EDT Plan of Care, PT PT Tx Plan/Goals Established w Patient : Yes LAURITA DAVIDSON, PT - 10/24/2018 16:08 EDT Short Term Goals Ambulation STG Grid Goal #1 Device : Walker, front wheel Distance : 375' Assist : Supervision or set-up Date to Meet : 10/31/2018 EDT Goal Status : Revised Comment : 10/24/18 LAURITA ADVIDSON, PT - 10/24/2018 16:08 EDT Health Analytics Consultant Goals Ambulation LTG Grid Goal #1 Device : None Distance : 375' Assist : Supervision or set-up Date to Meet : 11/07/2018 EDT Goal Status : Revised Comment : Revised 10/23/18 LAURITA DAVIDSON, PT - 10/24/2018 16:08 EDT Treatment Note Subjective Comment : Patient and RN (Marilyn) agrees with POC. Re-start orders 10/24/18 for functional mobility following pacemaker insertion on 10/23/18. Patient's Response to Treatment : Slow cadance and patient fatigued from gait training. Patient on 2L 02. Sling on (L) UE. Additional Objective Information : Min A supine to sit. Min A sit to stand. Min A with A.D using (R) UE placement on RWx~40' Min A transfer on/off bedside commode. Min A to supine position. Patient re-position for comfort. Assessment : Impaired functional mobility and patient requires verbal cues for NWB on (L) UE due to pacemaker implant. Plan for Treatment : Cont POC. Re-evaluation Assessment : Surgery 10/23/18 for pacemaker with sling to (L) UE. LAURITA DAVIDSON, PT - 10/24/2018 16:08 EDT Pain Assessment Pain Scaled Used : 0-10 Pain scale Pain Score During-Intervention : 0 LAURITA DAVIDSON, PT - 10/24/2018 16:08 EDT Image 1 - Images currently included in the form version of this document have not been included in the text rendition version of the form. [facility] PT Charges PT Re-Evaluation : 1 LAURITA DAVIDSON, PT - 10/24/2018 16:08 EDT Electronically signed by [facility] Conversion Product Planner Cerner at 11/28/2022 5:42 PM CDT documented in this encounter Plan of Treatment Upcoming Encounters Date Type Department Care Team (Late st Contact Info) Description 08/23/2025 12:45 PM EST Office Visit [facility] Electrophysiology [address] [place] [address] [place] [address] [place] [address] [address] [place] [address] documented as of this encounter Visit Diagnoses Not on filedocumented in this encounter Care Teams Enterprise Systems Engineer Relationship Specialty Start Date End Date Alfred Cantu MD [address] [place] [address] PCP - General General Internal Medicine 08/29/22 [place] [address] [place] [address] [id number] Loan Coordinator Interventional Cardiology 08/29/22 Vik Corcoran MD [address] [place] [address] [id number] Loan Coordinator Electrophysiology 05/19/24 documented as of this encounter
--- OUTSIDE RECORDS SUMMARY | 2025-02-18 10:43 | XMS_ITS | Encounter Summary ---
Author Organization [employer] ([place], [place], [place], [place]) Address [address] [place] [address] Care Team Providers Care Convenience Recycle Center Tech Name Role Phone Alfred Cantu MD Primary Care Provider [phone] Lyndsey Key MD Unavailable [phone] Vik Corcoran MD Unavailable Encounter Details Date Type Department Care Team (Late st Contact Info) Description 10/21/2018 Transcribed Document [facility] Family Medicine [facility] [place] [address] ProviderRashard MD [address] [place] [address] Social History Tobacco Use Types Packs/Day Years Used Date Smoking Tobacco: Never Assessed Comments Unknown Sex and Gender Information Value Date Recorded Sex Assigned at Not on file Legal Sex Female 1:15 PM CDT Gender Identity Not on file Sexual Orientation Not on file documented as of this encounter Miscellaneous Notes * Cerner Conversion Note - Rashard ProviderMD - 10/21/2018 5:34 AM CDT Consult Phone Call Documentation Entered On: 10/21/2018 8:01 EDT Performed On: 10/21/2018 5:34 EDT by Liv Escobedo, Triple Air Valve TesterHealth Unit Coord Phone Call for Consults Consult Phone Call/Page Attempt : First call Consult Reason : CHF, severe mitral regurgitation Physician Covering for Consult : NAZANIN ORTIZ MD Date and Time Call Returned : 10/21/2018 8:01 EDT Liv Escobedo, Triple Air Valve Tester-Health Unit Coord - 10/21/2018 8:00 EDT documented in this encounter Plan of Treatment Upcoming Encounters Date Type Department Care Team (Late st Contact Info) Description 08/23/2025 12:45 PM EST Office Visit [facility] Electrophysiology [address] [place] [address] Vik Corcoran MD [address] [place] [address] [address] [place] [address] documented as of this encounter Visit Diagnoses Not on filedocumented in this encounter Care Teams Convenience Recycle Center Tech Relationship Specialty Start Date End Date Alfred Cantu MD [address] [place] [address] PCP - General General Internal Medicine 08/29/22 Lyndsey Key MD [address] [place] [address] [address] General Surgery Physician Assistant Interventional Cardiology 08/29/22 Vik Corcoran MD [address] [place] [address] [address] General Surgery Physician Assistant Electrophysiology 05/19/24 documented as of this encounter
--- OUTSIDE RECORDS SUMMARY | 2025-02-18 10:43 | XMS_ITS | Encounter Summary ---
Author Organization [employer] ([place], [place], [place], [place]) Address [address] [place] [address] Care Team Providers Care Insole Coverer Name Role Phone Alfred Cantu MD Primary Care Provider [phone] Lyndsey Key MD Unavailable [phone] Vik Corcoran MD Unavailable Encounter Details Date Type Department Care Team (Late st Contact Info) Description 10/25/2018 Transcribed Document [facility] Family Medicine [address] [place] [address] ProviderRashard MD [address] [place] [address] Social History Tobacco Use Types Packs/Day Years Used Date Smoking Tobacco: Never Assessed Comments Unknown Sex and Gender Information Value Date Recorded Sex Assigned at Not on file Legal Sex Female 1:15 PM CDT Gender Identity Not on file Sexual Orientation Not on file documented as of this encounter Miscellaneous Notes * Cerner Conversion Note - Rashard ProviderMD - 10/25/2018 5:00 AM CDT Chart Check - Review Order Profile Entered On: 10/25/2018 3:40 EDT Performed On: 10/25/2018 5:00 EDT by YASHIRA CABRAL RN Chart Check Chart Reviewed Date and Time : 10/25/2018 3:40 EDT Power[employer]ans Initiated/Discontinued as Appropriate : Yes All Active Orders Reviewed : Yes YASHIRA CABRAL RN - 10/25/2018 3:40 EDT documented in this encounter Plan of Treatment Upcoming Encounters Date Type Department Care Team (Late st Contact Info) Description 08/23/2025 12:45 PM EST Office Visit [facility] Electrophysiology [address] [place] [phone] [place] [address] [place] [address] [address] [place] [id number] documented as of this encounter Visit Diagnoses Not on filedocumented in this encounter Care Teams Insole Coverer Relationship Specialty Start Date End Date Alfred Cantu MD [address] [place] [address] PCP - General General Internal Medicine 08/29/22 [place] [address] [place] [address] [address] [place] [address] Eligibility Technician Interventional Cardiology 08/29/22 [place] [address] [place] [address] [address] [place], [place] [id number] Eligibility Technician Electrophysiology 05/19/24 documented as of this encounter
--- OUTSIDE RECORDS SUMMARY | 2025-02-18 10:43 | XMS_ITS | Encounter Summary ---
Author Organization [employer] ([place], [place], [place], [place]) Address [address] [place] [address] Care Team Providers Care Sld Educational Aide Name Role Phone lAfred Cantu MD Primary Care Provider Lyndsey Key MD Unavailable [phone] Vik Corcoran MD Unavailable Encounter Details Date Type Department Care Team (Late st Contact Info) Description 10/22/2018 Transcribed Document [facility] Family [facility] [address] ProviderRashard MD [address] [place] [address] Social History Tobacco Use Types Packs/Day Years Used Date Smoking Tobacco: Never Assessed Comments Unknown Sex and Gender Information Value Date Recorded Sex Assigned at Not on file Legal Sex Female 1:15 PM CDT Gender Identity Not on file Sexual Orientation Not on file documented as of this encounter Miscellaneous Notes * Cerner Conversion Note - Rashard ProviderMD - 10/22/2018 3:00 PM CDT Treatment Intervention, OT Entered On: 10/28/2018 15:28 EDT Performed On: 10/28/2018 14:01 EDT by GRUPO HESTER, OTR/L General Information, OT Visit Type, OT : Treatment Note Patient Orders : Order Date Order Ordering 10/22/2018 13:27 Occupational Therapy Evaluation and Treatme Ordered By: KENNETH OSBORN MD 10/22/2018 15:00 Occupational Therapy Additional Tx Ordered By: 10/25/2018 08:05 Consult to Occupational Therapy Ordered By: JOSE MEDRANO MD Active Diagnoses : 10/27/2018 00:00 Shortness of breath Admission Date : 10/20/2018 23:00 Personal Devices : Personal Devices No Devices Recorded Assistive Devices : Assistive Devices No Devices Recorded Precautions in Place : Fall prevention measures Isolation Maintained : Droplet GRUPO HESTER OTR/L - 10/28/2018 15:23 EDT General Status Patient Received Status : Supine in bed Treatment Start Time : 10/28/2018 13:34 EDT Patient Left Status : Supine in bed, RN/PCT informed, All needs met and within reach RN/PCT Informed Comment : RN Roberta montano. Treatment End Time : 10/28/2018 14:01 EDT Treatment Time : 27 Minute(s) GRUPO HESTER OTR/L - 10/28/2018 15:23 EDT Functional Mobility Mobility Grid Supine to Sit : Rehab Minimal assistance Sit to Supine : Rehab Minimal assistance GRUPO HESTER OTR/L - 10/28/2018 15:23 EDT Plan of Care, OT OT Tx Plan/Goals Established w Patient : Yes GRUPO HESTER OTR/L - 10/28/2018 15:23 EDT Senior C Software Developer Goals, OT Grooming LTG Grid Goal #1 Activity : Grooming Assist : Independent, complete Date to Meet : 11/05/2018 EDT Goal Status : Progressing, continue GRUPO HESTER OTR/L - 10/28/2018 15:23 EDT Dressing, Lower Body LTG Grid Goal #1 Activity : Dressing, Lower Body Assist : Supervision or set up Date to Meet : 11/05/2018 EDT Goal Status : Progressing, continue GRUPO HESTER OTR/L - 10/28/2018 15:23 EDT Toilet Transfer LTG Grid Goal #1 Activity : Toilet Transfer, Ambulatory Assist : Independent, complete Date to Meet : 11/05/2018 EDT Goal Status : Progressing, continue GRUPO HESTER OTR/L - 10/28/2018 15:23 EDT Bed Mobility/ Bed Transfer LTG Grid Goal #1 Activity : Bed Mobility/Bed Transfer Assist : Independent, complete Date to Meet : 11/05/2018 EDT Goal Status : Progressing, continue GRUPO HESTER OTR/L - 10/28/2018 15:23 EDT Treatment Note Subjective Comment : Pt agreeable. Pt's spouse present. Patient's Response to Treatment : Pt completing multiple ADL tasks: bed mobility with Neymar. Toilet transfer Neymar and toileted with supervision. Additional Objective Information : Pt ambulating functional distance in hallway with and without walker. Pt very motivated to return home. Assessment : Pt progressing. Plan for Treatment : cont poc GRUPO HESTER OTR/Sujey - 10/28/2018 15:23 EDT Pain Assessment Pain Scaled Used : 0-10 Pain scale Pain Score Post-Intervention. : 0 GRUPO HESTER OTR/Sujey - 10/28/2018 15:23 EDT Image 1 - Images currently included in the form version of this document have not been included in the text rendition version of the form. [place] OT Charges OT Selfcare/Hm Mgmt Ea 15 Min : 2 GRUPO HESTER OTR/Sujey - 10/28/2018 15:23 EDT documented in this encounter Plan of Treatment Upcoming Encounters Date Type Department Care Team (Late st Contact Info) Description 08/23/2025 12:45 PM EST Office Visit [facility] Electrophysiology [address] [place] [phone] [place] [address] [place] [address] [address] documented as of this encounter Visit Diagnoses Not on filedocumented in this encounter Care Teams Sld Educational Aide Relationship Specialty Start Date End Date Alfred Cantu MD [address] [place] [address] PCP - General General Internal Medicine 08/29/22 [place] [address] [place] [address] [address] [place] [address] Customer Experience Leader Interventional Cardiology 08/29/22 Vik Corcoran MD [address] [facility] [place] [address] Customer Experience Leader Electrophysiology 05/19/24 documented as of this encounter
--- OUTSIDE RECORDS SUMMARY | 2025-02-18 10:43 | XMS_ITS | Encounter Summary ---
Author Organization [employer] ([place], [place], [place], [place]) Address [address] [place] [address] Care Team Providers Care Telecommunications Equipment Installer Name Role Phone Alfred Cantu MD Primary Care Provider [phone] Lyndsey Key MD Unavailable [phone] Vik Corcoran MD Unavailable Encounter Details Date Type Department Care Team (Late st Contact Info) Description 10/21/2018 Transcribed Document [facility] [place] Family [place] [address] ProviderRashard MD [address] [place] [address] Social History Tobacco Use Types Packs/Day Years Used Date Smoking Tobacco: Never Assessed Comments Unknown Sex and Gender Information Value Date Recorded Sex Assigned at Not on file Legal Sex Female 1:15 PM CDT Gender Identity Not on file Sexual Orientation Not on file documented as of this encounter Miscellaneous Notes * Cerner Conversion Note - Rashard ProviderMD - 10/21/2018 4:13 PM CDT Patient: KATHY CARTER Age: 78 years Sex: Female : 1940 Associated Diagnoses: None Author: LIZZ ZIMMERMAN DO Subjective Ms. Carter was seen by me this morning, she tells me that her tongue feels sore and asks for something for Thrush she tells me taht she needs some For my nerves and that she takes diazepam at home. She tells me that she has been sick since june and has been treated many times for pneumonia. She reports some abd pain and nausea which she further thinks is from Acid reflux . no diarrhea, urinating well since lasix this morning. no family present Health Status Current medications: Medications (32) Active Scheduled: (15) #NaCl 0.9% *FLUSH* inj 10 mL 10 mL, IV Push, Q12H albuterol-ipratropium inh 3 mL 3 mL, Nebulized Inhalation, RT_Q6H aspirin 81 mg chew tab 81 mg 1 Tab, Oral, Daily azithromycin 250 mg tab 500 mg 2 Tab, Oral, Daily budesonide 0.5 mg/2 mL inh susp 0.5 mg 2 mL, Nebulized Inhalation, BID carvedilol 25 mg tab 50 mg 2 Tab, Oral, BID furosemide 40 mg/4 mL inj 40 mg 4 mL, IV Push, Q12H guaiFENesin 600 mg ER tab 1,200 mg 2 Tab, Oral, BID heparin 5,000 units/1 mL inj 5,000 Units 1 mL, SubCutaneous, Q8HInt nySTATin 100,000 unit/mL susp 5 mL 1,000,000 Units 10 mL, Swish and Swallow, Q6H pantoprazole EC 40 mg tab 40 mg 1 Tab, Oral, Daily piperacillin-tazobactam + NaCl 0.9% 100 mL 3.375 Gram, IV Piggyback, Q6HInt spironolactone 25 mg tab 25 mg 1 Tab, Oral, Daily valsartan 80 mg tab 80 mg 1 Tab, Oral, Daily vancomycin + NaCl 0.9% 250 mL 1 Gram, IV Piggyback, On-CALL Continuous: (0) PRN: (17) #NaCl 0.9% *FLUSH* inj 10 mL 10 mL, IV Push, See Comment acetaminophen 325 mg tab 325 mg 1 [...] 15 mMole 5 mL, IV Piggyback, Q6H Objective Intake and Output Intake & Output Totals Last 24 Hours (7a-7a) Intake (1 Events) Medications (100 mL) Output (0 Events) No output events found in the last 24 hours. Input Total: 100 mL Output Total: 0 mL Balance: 100 mL VS/Measurements Vitals Signs (last 24 hrs) Last Charted Minimum Maximum Temp 97.2 (OCT 21 12:00) 97.2 (OCT 21 12:00) 98.6 (OCT 21 08:00) Mon HR 71 (OCT 21:) 68 (OCT 21 12:00) 95 (OCT 21 09:00) Resp Rate 20 (OCT 21:) 16 (OCT 21 11:01) H 48 (OCT 21 04:00) SBP 139 (OCT 21:) 111 (OCT 21 11:00) H 174 (OCT 21 08:30) DBP 71 (OCT 21:) 65 (OCT 21 00:00) H 95 (OCT 20 23:15) MAP 98 (OCT 21:) 81 (OCT 21 11:00) 122 (OCT 21 05:00) SpO2 99 (OCT 21:) L 93 (OCT 21 10:00) 100 (OCT 20:15) General: Alert and oriented, No acute distress. Eye: Pupils are equal, round and reactive to light, Normal conjunctiva. HENT: Normocephalic, Normal hearing, tongue is moist with no obvious thrush seen. . Respiratory: on NC, no wheezing, occasional rhonchi at bases . Cardiovascular: Normal rate, Regular rhythm, No murmur, trace LE edema. Gastrointestinal: Soft, Non-tender, Non-distended, Normal bowel sounds. Integumentary: Warm, Dry. Neurologic: Alert, Oriented. Psychiatric: Cooperative, Appropriate mood & affect. Results Review General results Interpretation: OCT 21 10:53 L 125 L 86 13 / H 111 3.9 32 1.00 \ OCT 21 10:53 \ 11.7 / H 14.6 239 / 36.4 \ Labs (Last four charted values) WBC H 14.6 (OCT 21) HB 11.7 (OCT 21) HCT 36.4 (OCT 21) Plt 239 (OCT 21) 225 (OCT 21) Na L 125 (OCT 21) L 128 (OCT 21) K 3.9 (OCT 21) L 3.3 (OCT 21) L 3.4 (OCT 21) Cl L 86 (OCT 21) L 89 (OCT 21) CO2 32 (OCT 21) 31 (OCT 21) BUN 13 (OCT 21) 12 (OCT 21) Cr 1.00 (OCT 21) 0.80 (OCT 21) Glu R H 111 (OCT 21) 90 (OCT 21) Ca 8.5 (OCT 21) L 8.3 (OCT 21) Lactic 0.8 (OCT 21) AST 18 (OCT 21) ALT 27 (OCT 21) ALK P 66 (OCT 21) T Bili 0.8 (OCT 21) PTN L 6.2 (OCT 21) ALB L 3.0 (OCT 21) Troponin H 0.079 (OCT 21) Radiology Results (Last 48 hours) [id number] -- 10/20/2018 23:00 CR Chest 1 Vw [...] systolic chf - duration unknown - Echo today showing ef of 15% - EP consult for Bi-V implant - continue iv lasix - monitor I&O and daily weights - cxr showing no significant edema - continue spironolactone,valsartan, coreg, aspirin severe mitral regurgitation - cardiology consult community acquired pna - pt had been on antibiotics for a few days prior to admission - procal nml - check resp panel pcr - may be able to stop antibiotcs soon as this may be pulm edema thrush - nystatin swish and swallow history of asthma - prn nebs - add mucinex hyponatremia, poa - mointor closely with diuresis anxiety - continue home prn valium hypokalemia - repleted d/w rn time spent: 32 min discharge goals: improve sob, bi-V today Lizz [facility] Hospitalist pager- [phone] Electronically signed by [facility] Conversion Oil Winterizer Cerner at 11/28/2022 5:44 PM CDT documented in this encounter Plan of Treatment Upcoming Encounters Date Type Department Care Team (Late st Contact Info) Description 08/23/2025 12:45 PM EST Office Visit [facility] Electrophysiology [address] [place] [address] Vik Corcoran MD [address] [facility] [address] [place] [address] documented as of this encounter Visit Diagnoses Not on filedocumented in this encounter Care Teams Telecommunications Equipment Installer Relationship Specialty Start Date End Date Alfred Cantu MD [address] [place] [address] PCP - General General Internal Medicine 08/29/22 Lyndsey Key MD [address] [facility] [address] [place], [place] [id number] Sculpture Conservator Interventional Cardiology 08/29/22 Vik Corcoran MD [address] [facility] [place] [address] Sculpture Conservator Electrophysiology 05/19/24 documented as of this encounter
--- OUTSIDE RECORDS SUMMARY | 2025-02-18 10:43 | XMS_ITS | Encounter Summary ---
Author Organization [employer] ([place], [place], [place], [place]) Address [address] [place] [address] Care Team Providers Care Inpatient Coder Name Role Phone Alfred Cantu MD Primary Care Provider [phone] Lyndsey Key MD Unavailable [phone] Vik Corcoran MD Unavailable Encounter Details Date Type Department Care Team (Late st Contact Info) Description 10/24/2018 Transcribed Document [facility] [place] Family Medicine [facility] [place] [address] ProviderRashard MD [address] [place] [address] Social History Tobacco Use Types Packs/Day Years Used Date Smoking Tobacco: Never Assessed Comments Unknown Sex and Gender Information Value Date Recorded Sex Assigned at Not on file Legal Sex Female 1:15 PM CDT Gender Identity Not on file Sexual Orientation Not on file documented as of this encounter Miscellaneous Notes * Cerner Conversion Note - Rashard ProviderMD - 10/24/2018 11:43 AM CDT Patient: KATHY CARTER Age: 78 Years Sex: Female : 1940 Subjective Chief Complaint: Feels much better Sitting on commode Physical Exam (1, 6, 12) NAD No JVD Oropharynx moist Decreased BS over bases, mild rales Regular, nl S1, S2, 3/6 HSM +BS,soft trace edema Superficial incision oozing with wet dressing Vitals & Measurements T: 36.3 ??C TMIN: 36.3 ??C TMAX: 37.1 ??C HR: 80(Monitored) RR: 18 BP: 147/78 SpO2: 94% Intake & Output Intake & Output Totals Last 24 Hours (7a-7a) Intake (5 Events) Medications (500 mL) Oral Intake (120 mL) Output (6 Events) Urine Voided (Volume) (2550 mL) Input Total: 620 mL Output Total: 2550 mL Balance: -1930 mL Assessment/Plan 1. 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 Acute systolic heart failure 3. Severe MR 4. Acute pneumonia,on IV antibiotics s/p Med[employer] BIV-ICD on 10/23/2018 Normal device check this am CXR this am-adequate lead position, no pneumothorax, increased vascular congestion Dressing removed, incision cleaned with sterile saline, new steri-strips applied, island dressing placed One dose of vanco this am Bumex 1 mg PO BID Left arm sling DC instructions explained. No heparin in any form for [address] Bowles. Medications Inpatient acetaminophen, 325 mg= 1 Tab, [...] Lasix, 40 mg= 4 mL, IV Push, Q12H magnesium sulfate, 2 Gram= 50 mL, IV Piggyback, Q2H, PRN magnesium sulfate, 2 Gram= 50 mL, IV Piggyback, Daily, PRN Mucinex, 1200 mg= 2 Tab, Oral, BID nystatin, [id number] Units= 10 mL, Swish and Swallow , [...] Inhalation , BID sodium phosphate sodium phosphate SOLU-Medrol, 40 mg= 1 mL, IV Push, Q6H spironolactone, 25 mg= 1 Tab, Oral, Daily [...] 1 Tab, Oral, Daily Lab Results OCT 24 03:27 L 127 L 87 H 35 / H 132 4.0 30 H 1.10 \ OCT 21 05:27 \ 11.7 / H 14.6 225 / 36.4 \ documented in this encounter Plan of Treatment Upcoming Encounters Date Type Department Care Team (Late st Contact Info) Description 08/23/2025 12:45 PM EST Office Visit [facility] Electrophysiology [address] [place] [address] [place] [address] [place] [address] [address] [place] [address] documented as of this encounter Visit Diagnoses Not on filedocumented in this encounter Care Teams Inpatient Coder Relationship Specialty Start Date End Date Alfred Cantu MD [address] [place] [address] PCP - General General Internal Medicine 08/29/22 [place] [address] [place] [address] [id number] Hairspring Cutter Interventional Cardiology 08/29/22 [place] [address] [place] [address] [address] [place], [place] [id number] Hairspring Cutter Electrophysiology 05/19/24 documented as of this encounter
--- OUTSIDE RECORDS SUMMARY | 2025-02-18 10:43 | XMS_ITS | Encounter Summary ---
Author Organization [employer] ([place], [place], [place], [place]) Address [address] [place] [address] Care Team Providers Care Teletype Adjuster Name Role Phone Alfred Cantu MD Primary Care Provider Lyndsey Key MD Unavailable [phone] Vik Corcoran MD Unavailable Encounter Details Date Type Department Care Team (Late st Contact Info) Description 08/16/2021 Transcribed Document [facility] [place] Family [place] [address] ProviderRashard MD [address] [place] [address] Social History Tobacco Use Types Packs/Day Years Used Date Smoking Tobacco: Never Assessed Comments Unknown Sex and Gender Information Value Date Recorded Sex Assigned at Not on file Legal Sex Female 1:15 PM CDT Gender Identity Not on file Sexual Orientation Not on file documented as of this encounter Miscellaneous Notes * Cerner Conversion Note - Rashard ProviderMD - 08/16/2021 9:41 AM MARINE EQUIPMENT DESIGN ENGINEER Nursing Discharge Summary Entered On: 08/16/2021 9:41 EST Performed On: 08/16/2021 9:41 EST by JENNIFER BILLINGS RN Discharge Documentation Discharge Date/Time : 08/16/2021 16:00 EST JENNIFER BILLINGS RN - 08/16/2021 16:20 EST Patient Disposition, General : Discharge Discharge To : Home with ambulatory/outpatient follow-up Mode Of Departure, General Discharge : Private vehicle, Wheelchair Accompanied By, Discharge : Spouse IV Discontinued : Yes Personal Belongings With Patient : No personal belongings to return Pt's Own Supply of Medications Returned : No patient supply of medications to return Prescriptions Given to Patient : No Discharge Instructions Reviewed With, Opportunity For Questions Given : Patient, Spouse Patient Education Completed : Yes Teaching Method : Explanation, Printed materials Teaching Evaluation : Returns demonstration, Verbalizes understanding JENNIFER BILLINGS RN - 08/16/2021 9:41 EST Electronically signed by [facility], [facility] Conversion Synchro Assembler Cerner at 11/29/2022 12:44 PM CDT documented in this encounter Plan of Treatment Upcoming Encounters Date Type Department Care Team (Late st Contact Info) Description 08/23/2025 12:45 PM EST Office Visit [facility] Electrophysiology [address] [place] [address] Vik Corcoran MD [address] [place] [address] [id number] documented as of this encounter Visit Diagnoses Not on filedocumented in this encounter Care Teams Teletype Adjuster Relationship Specialty Start Date End Date Alfred Cantu MD [address] [place] [address] PCP - General General Internal Medicine 08/29/22 Lyndsey Key MD [address] [place] [address] [id number] Hooker Machine Tender Interventional Cardiology 08/29/22 Vik Corcoran MD [address] [place] [address] [address] Hooker Machine Tender Electrophysiology 05/19/24 documented as of this encounter
--- OUTSIDE RECORDS SUMMARY | 2025-02-18 10:43 | XMS_ITS | Encounter Summary ---
Author Organization [employer] ([place], [place], [place], [place]) Address [address] [place] [address] Care Team Providers Care System Administrator Name Role Phone Alfred Cantu MD Primary Care Provider [phone] Lyndsey Key MD Unavailable [phone] Vik Corcoran MD Unavailable Encounter Details Date Type Department Care Team (Late st Contact Info) Description 10/24/2018 Transcribed Document [facility] [place] Family Medicine [facility] [place] [place] [address] ProviderRashard MD [address] [place] [address] Social History Tobacco Use Types Packs/Day Years Used Date Smoking Tobacco: Never Assessed Comments Unknown Sex and Gender Information Value Date Recorded Sex Assigned at Not on file Legal Sex Female 1:15 PM CDT Gender Identity Not on file Sexual Orientation Not on file documented as of this encounter Miscellaneous Notes * Cerner Conversion Note - Rashard ProviderMD - 10/24/2018 2:00 AM CDT Catcher Plug Details Entered On: 10/24/2018 0:24 EDT Performed On: 10/24/2018 2:00 EDT by YASHIRA CABRAL RN Order [...] Line : No YASHIRA CABRAL RN - 10/24/2018 0:24 EDT Electronically signed by [facility], [facility] Conversion Volunteer Firefighter Cerner at 11/28/2022 5:35 PM CDT documented in this encounter Plan of Treatment Upcoming Encounters Date Type Department Care Team (Late st Contact Info) Description 08/23/2025 12:45 PM EST Office Visit [facility] Electrophysiology [address] [place] [address] Vik Corcoran MD [address] [place] [address] [address] [place] [address] documented as of this encounter Visit Diagnoses Not on filedocumented in this encounter Care Teams System Administrator Relationship Specialty Start Date End Date Alfred Cantu MD [address] [place] [address] PCP - General General Internal Medicine 08/29/22 Lyndsey Key MD [address] [place] [address] [address] Toy Trains And Accessories Salesperson Interventional Cardiology 08/29/22 Vik Corcoran MD [address] [place] [address] [address] Toy Trains And Accessories Salesperson Electrophysiology 05/19/24 documented as of this encounter
--- OUTSIDE RECORDS SUMMARY | 2025-02-18 10:43 | XMS_ITS | Encounter Summary ---
Author Organization [employer] ([place], [place], [place], [place]) Address [address] [place] [address] Care Team Providers Care Mud Worker Name Role Phone Alfred Catnu MD Primary Care Provider [phone] Lyndsey Key MD Unavailable [phone] Vik Corcoran MD Unavailable Encounter Details Date Type Department Care Team (Late st Contact Info) Description 10/25/2018 Transcribed Document [facility] [place] [facility] [place] [address] ProviderRashard MD [address] [place] [address] Social History Tobacco Use Types Packs/Day Years Used Date Smoking Tobacco: Never Assessed Comments Unknown Sex and Gender Information Value Date Recorded Sex Assigned at Not on file Legal Sex Female 1:15 PM CDT Gender Identity Not on file Sexual Orientation Not on file documented as of this encounter Miscellaneous Notes * Cerner Conversion Note - Rashard ProviderMD - 10/25/2018 1:26 PM CDT Patient: KATHY CARTER Age: 78 years Sex: Female : 1940 Associated Diagnoses: None Author: JOSE MEDRANO MD Subjective She looks better today, stating her breathing about the same, good urine output, satting 99 on 2 L, Continue to losing blood from her pacemaker incision Creatinine is stable Afebrile Blood pressure higher side No nausea no vomiting Ambulate in the room Objective Intake and Output Intake & Output Totals Last 24 Hours (7a-7a) Intake (3 Events) Oral Intake (600 mL) Output (3 Events) Urine Voided (Volume) (1550 mL) Input Total: 600 mL Output Total: 1550 mL Balance: -950 mL VS/Measurements Vitals Signs (last 24 hrs) Last Charted Minimum Maximum Temp 97.8 (OCT 25 10:11) 97.8 (OCT 25 10:11) 98.4 (OCT 24 17:55) Mon HR 86 (OCT 25 11:49) 65 (OCT 25 07:46) 93 (OCT 24 17:55) Resp Rate 16 (OCT 25 11:32) 16 (OCT 24 20:09) 20 (OCT 24 17:55) SBP H 154 (OCT 25 10:11) 131 (OCT 25 02:48) H 159 (OCT 25 05:20) DBP H 97 (OCT 25 10:11) 74 (OCT 25 02:48) H 99 (OCT 24 17:55) MAP 114 (OCT 25 10:11) 95 (OCT 25 02:48) 121 (OCT 25 05:20) SpO2 99 (OCT 25 11:32) L 90 (OCT 25 10:15) 99 (OCT 25 11:32) General: Alert and oriented, No acute distress. Eye: Pupils are equal, round and reactive to light, Normal conjunctiva. HENT: Normocephalic, Normal hearing, tongue is moist with no obvious thrush seen. . Pacemaker incision with the minimal bleed, minimal subcutaneous hematoma, Respiratory: on NC, occasional wheezing, no rhonchi. Cardiovascular: Normal rate, Regular rhythm, No murmur, trace LE edema. Gastrointestinal: Soft, Non-tender, Non-distended, Normal bowel sounds. Integumentary: Warm, Dry. Neurologic: Alert, Oriented. Psychiatric: Cooperative, Appropriate mood & affect. Results Review General results Interpretation: OCT 25 12:48 L 127 L 90 H 36 / H 151 4.8 31 1.00 \ Labs (Last four charted values) WBC H 29.3 (OCT 24) H 18.3 (MAR 15) H 14.8 (OCT 14) H 14.6 (OCT 13) HB 11.6 (OCT 16) 12.4 (OCT 15) L 11.1 (OCT 14) 11.7 (OCT 13) HCT 35.0 (OCT 16) 37.9 (OCT 15) L 33.4 (OCT 14) 36.4 (OCT 13) Plt 253 (OCT 16) 225 (OCT 15) 221 (OCT 14) 239 (OCT 13) Na L 127 (OCT 17) L 127 (OCT 16) L 125 (OCT 15) L 127 (OCT 14) K 4.8 (OCT 17) 4.0 (OCT 16) 4.4 (OCT 15) L 3.1 (OCT 14) Cl L 90 (OCT 17) L 87 (OCT 16) L 88 (OCT 15) L 87 (OCT 14) CO2 31 (OCT 17) 30 (OCT 16) 28 (OCT 15) 32 (OCT 14) BUN H 36 (OCT 17) H 35 (OCT 16) 21 (OCT 15) 18 (OCT 14) Cr 1.00 (OCT 17) H 1.10 (OCT 16) 0.90 (OCT 15) 0.90 (OCT 14) Glu R H 151 (OCT 17) H 132 (OCT 16) H 147 (OCT 15) 91 (OCT 14) Ca 8.6 (OCT 17) 8.8 (OCT 16) 8.7 (OCT 15) 8.4 (OCT 14) Lactic 0.8 (OCT 13) AST 18 (OCT 21) ALT 27 (OCT 21) ALK P 66 (OCT 21) T Bili 0.8 (OCT 21) PTN L 6.2 (OCT 21) ALB L 3.0 (OCT 21) Troponin H 0.079 (OCT 21) Radiology Results (Last 48 hours) [id number] -- 10/20/2018 23:00 CR Chest 1 Vw [...] personally viewed, interpreted and dictated the examination. Ihortega read and agree with the above final [...] personally viewed, interpreted and dictated the examination. Ihortega read and agree with the above final [...] Symptomatically treatment Taper steroid Diuresis, Acute kidney injury,better In face of contrast, and ARBS diuresis Monitor very closely Adjust medication cont stop the Aldactone and losartan Monitor in face of diuresis leukocytosis sterodi infectios ractive afebrile repeat cbc acute systolic chf - duration unknown - [...] of asthma - prn nebs - mucinex hyponatremia, poa - improved - mointor closely with diuresis anxiety - continue home prn valium hypokalemia - replete hypomag - replete d/w rn\ time spent: 29 min Electronically signed by [facility], [facility] Conversion Telesales Professional Cerner at 11/28/2022 5:33 PM CDT documented in this encounter Plan of Treatment Upcoming Encounters Date Type Department Care Team (Late st Contact Info) Description 08/23/2025 12:45 PM EST Office Visit [facility] Electrophysiology [address] [place] [address] Vik Corcoran MD [address] [place] [address] [address] [place] [address] documented as of this encounter Visit Diagnoses Not on filedocumented in this encounter Care Teams Mud Worker Relationship Specialty Start Date End Date Alfred Cantu MD [address] [place] [address] PCP - General General Internal Medicine 08/29/22 Lyndsey Key MD [address] [place] [address] [address] Rn Cardiac Rehab Interventional Cardiology 08/29/22 Vik Corcoran MD [address] [place] [address] [address] Rn Cardiac Rehab Electrophysiology 05/19/24 documented as of this encounter
--- OUTSIDE RECORDS SUMMARY | 2025-02-18 10:43 | XMS_ITS | Clinical Summary ---
Author Organization [facility] Address [address] [facility] [address] [place] [address] Phone Care Team Providers Care Customer Support Engineer Name Role Phone Unavailable Unavailable Conditions or Problems No information available. Medications No information available. Medications Administered No information available. Allergies, Adverse Reactions, Alerts No information available. Results No information available. Plan of Care No information available. Procedures No information available. Vital Signs No information available. Immunizations No information available. Advance Directives No information available.
--- OUTSIDE RECORDS SUMMARY | 2025-02-18 10:43 | XMS_ITS | Encounter Summary ---
Author Organization [employer] ([place], [place], [place], [place]) Address [address] [place] [address] Care Team Providers Care Circuit Court Clerk Name Role Phone Alfred Cantu MD Primary Care Provider [phone] Lyndsey Key MD Unavailable [phone] Vik Corcoran MD Unavailable Encounter Details Date Type Department Care Team (Late st Contact Info) Description 10/22/2018 Transcribed Document [facility] [place] Family Medicine [facility] [place] [address] ProviderRashard MD [address] [place] [address] Social History Tobacco Use Types Packs/Day Years Used Date Smoking Tobacco: Never Assessed Comments Unknown Sex and Gender Information Value Date Recorded Sex Assigned at Not on file Legal Sex Female 1:15 PM CDT Gender Identity Not on file Sexual Orientation Not on file documented as of this encounter Miscellaneous Notes * Cerner Conversion Note - Historical ProviderMD - 10/22/2018 4:00 AM CDT Height and Weight, Routine Entered On: 10/22/2018 6:12 EDT Performed On: 10/22/2018 4:00 EDT by [facility] Height and Weight, Routine Routine Weight Source : Bed scale Routine Weight Entry Format : Metric Routine Weight, Kilograms : 88.4 kg(Converted to: 194 lb 14 oz) Routine Weight Calculation : 88.4 kg Height Source : Stated Height Entry Format : [place] Height, Feet : 5 ft Height, Inches : 0 Inch Clinical Height : 152.4 cm Body Surface Area (BSA), Routine : 1.85 m2 Body Mass Index (BMI), Routine : 38.06 kg/m2 [facility] - 10/22/2018 6:12 EDT Electronically signed by Interface, [facility] Conversion Silhouette Artist Cerner at 11/28/2022 5:33 PM CDT documented in this encounter Plan of Treatment Upcoming Encounters Date Type Department Care Team (Late st Contact Info) Description 08/23/2025 12:45 PM EST Office Visit [facility] Electrophysiology [address] [place] [phone] Vik Corcoran MD [address] [place] [address] [id number] documented as of this encounter Visit Diagnoses Not on filedocumented in this encounter Care Teams Circuit Court Clerk Relationship Specialty Start Date End Date Alfred Cantu MD [address] [place] [address] [place] [address] PCP - General General Internal Medicine 08/29/22 Lyndsey Key MD [address] [place] [address] [address] Nitroglycerin Separator Operator Interventional Cardiology 08/29/22 Vik Corcoran MD [address] [place] [address] [address] Nitroglycerin Separator Operator Electrophysiology 05/19/24 documented as of this encounter
--- OUTSIDE RECORDS SUMMARY | 2025-02-18 10:43 | XMS_ITS | Encounter Summary ---
Author Organization [employer] ([place], [place], [place], [place]) Address [address] [place] [address] Care Team Providers Care Childcare Teacher Name Role Phone Alfred Cantu MD Primary Care Provider [phone] Lyndsey Key MD Unavailable [phone] Vik Corcoran MD Unavailable Encounter Details Date Type Department Care Team (Late st Contact Info) Description 07/24/2021 Transcribed Document [facility] Family Medicine [facility] [place] [address] ProviderRashard MD [address] [place] [address] Social History Tobacco Use Types Packs/Day Years Used Date Smoking Tobacco: Never Assessed Comments Unknown Sex and Gender Information Value Date Recorded Sex Assigned at Not on file Legal Sex Female 1:15 PM CDT Gender Identity Not on file Sexual Orientation Not on file documented as of this encounter Miscellaneous Notes * Cerner Conversion Note - Historical ProviderMD - 07/24/2021 7:17 AM SHANK STAPLER Pre Procedure Adult Entered On: 07/24/2021 7:22 EST Performed On: 07/24/2021 7:17 EST by DEVIN SAENZ RN Height and Weight, Clinical Dosing Height Source : Stated Height Entry Format : [place] Height, Feet : 5 ft(Converted to: 152 cm, 60 Inch) Height, Inches : 0 Inch(Converted to: 0 ft 0 Inch, 0.00 cm) Clinical Height : 152.4 cm Weight Source : Standing scale Weight Entry Format : [place] Clinical Dosing Weight : 86.36 kg Weight, Pounds : 190 lb Body Surface Area (BSA) : 1.83 m2 Body Mass Index : 37.2 kg/m2 (HI) [place] Body Weight : 45 kg DEVIN SAENZ RN - 07/24/2021 7:17 EST Health Histories Smoking Status : Never (less than 100 in lifetime; none in last 30 days) Smokeless Tobacco Status : Never DEVIN SAENZ RN - 07/24/2021 7:17 EST Social History (As Of: 07/24/2021 07:22:10 EST) Tobacco: Smoking Status Never smoker. (Last [...] : No Patient Vaccinated for COVID-19 : Fully vaccinated DEVIN SAENZ RN - 07/24/2021 7:17 EST Infectious Disease Risk Screening Grid Cough < 2 wks of unknown origin : NO Cough > 2 weeks : NO Blood in Sputum : NO Fever or self-reported Fever : NO Rash of unknown origin : NO Headache : NO Stiff neck : NO Night Sweats : NO Unexplained Weight Loss : NO Diarrhea (3 episode per day) : NO DEVIN SAENZ RN - 07/24/2021 7:17 EST Physical contact outside [place] in the last 30 days : No Hospitalized in Foreign Country : No Infectious Disease History : Chicken pox/Shingles, Measles, Mumps INF Disease TB Screening Calc : 0 INF Disease Recent Travel Calc : 0 DEVIN SAENZ RN - 07/24/2021 7:17 EST COVID19 PreProcedure Screening Is this an Emergent or Add on Procedure? : No Date PreProcedure COVID-19 test known? : Yes Date of PreProcedure COVID-19 : 07/20/2021 EST Has patient been isolated since the test : Yes Exposed to COVID19 symptoms since test? : No DEVIN SAENZ RN - 07/24/2021 7:17 EST Anesthesia/Transfusion History Family History of Anesthesia Reaction : No prior transfusion(s) Transfusion History : Prior anesthesia reaction Type of Anesthesia Reaction : Other: nausea and vomiting Family History of Anesthesia Reaction : None DEVIN SAENZ RN - 07/24/2021 7:17 EST Functional Assessment Living Situation : Home Current Home Treatments : None DEVIN SAENZ RN - 07/24/2021 7:17 EST [place] Suicide Severity Rating Scale (C-SSRS) CSSRS Past Month Wish to be : No CSSRS Past Month Suicidal Thoughts : No CSSRS Lifetime Suicide Behavior : No Suicide Severity Rating Score : 0 Suicide Severity Rating : No Additional Care Required at this time DEVIN SAENZ RN - 07/24/2021 7:17 EST Psychosocial History Currently in Unsafe Situation : No DEVIN SAENZ RN - 07/24/2021 7:17 EST Advance Directive Patient has Advance Directive *Q : No, patient refuses Advance Directive information DEVIN SAENZ RN - 07/24/2021 7:17 EST General Info Want Family/Rep/Phys Notified of Admit : No Emergency Contact #1 : Braxton Jimenez Emergency Contact #1 Phone Number : Emergency Contact #1 Relationship : [phone] Emergency Contact #2 : none Emergency Contact #2 Phone Number : none Emergency Contact #2 Relationship : none Primary Language : Malay Communication Barrier : None Lawyer Real Estate Needed : No DEVIN SAENZ RN - 07/24/2021 7:17 EST Sleep Apnea Risk Assmt BiPAP/CPAP Ordered for Home Use : Yes Hx of Obstructive Sleep Apnea Diagnosis : Yes BiPAP/CPAP Used at Home : Yes Age over 50 Years Old : Yes Gender Male : No DEVIN SAENZ RN - 07/24/2021 7:17 EST Arnoldo Scale Arnoldo Sensory Perception : No impairment Arnoldo Moisture : Rarely moist Arnoldo Activity : Walks frequently Arnoldo Mobility : No limitation Arnoldo Nutrition : Adequate Arnoldo Friction and Shear : No apparent problem Arnoldo Score : 22 DEVIN SAENZ RN - 07/24/2021 7:17 EST Fall Risk Scales ABCs Fall Injury Risk Identification : Age, Bones ABC Fall Injury Risk : Moderate to high injury risk MARTEL Hx Falls Immediate/Within 3 Months : Yes Mart[place] Secondary Diagnosis : Yes MARTEL Use of Ambulatory Aid : None MARTEL IV Therapy or IV Access : Yes [place] Gait/Transferring : Normal, bedrest, immobile Martel Mental Status : Oriented to own ability [place] Fall Risk Score : 60 MARTEL Fall Scale Risk Level : 0-24 Low Risk Fall [place] Fall Interventions : Adequate lighting, Assistive devices within reach, Bed in low position, Call device within reach, Fall prevention handout/education per facility policy, Hourly comfort/safety rounds, Non-slip footwear, Personal items within reach, Reinforced to call for assistance before getting out of bed, Room free of clutter/spills, Upper side-rails up, Wheels locked, Wires/Cords secured DEVIN SAENZ RN - 07/24/2021 7:17 EST Valuables and Belongings Valuables and Belongings : Clothing Clothing : Common streetwear Clothing Disposition : Bedside DEVIN SAENZ RN - 07/24/2021 7:17 EST Electronically signed by [facility] Conversion Top Cager Cerner at 11/29/2022 12:45 PM CDT documented in this encounter Plan of Treatment Upcoming Encounters Date Type Department Care Team (Late st Contact Info) Description 08/23/2025 12:45 PM EST Office Visit [facility] Electrophysiology [address] [place] [address] Vik Corcoran MD [address] [facility] [address] [place] [address] documented as of this encounter Visit Diagnoses Not on filedocumented in this encounter Care Teams Childcare Teacher Relationship Specialty Start Date End Date Alfred Cantu MD [address] [place] [facility] [address] [place] [address] PCP - General General Internal Medicine 08/29/22 Lyndsey Key MD [address] [facility] [address] [place], [place] [id number] Search Engine Marketing Strategist Interventional Cardiology 08/29/22 [place] [address] [place] [address] [address] Search Engine Marketing Strategist Electrophysiology 05/19/24 documented as of this encounter
--- OUTSIDE RECORDS SUMMARY | 2025-02-18 10:43 | XMS_ITS | Encounter Summary ---
Author Organization [employer] ([place], [place], [place]) Address [address] [place] [address] Care Team Providers Care Securities Dealer Name Role Phone Alfred Cantu MD Primary Care Provider [phone] Lyndsey Key MD Unavailable [phone] Vik Corcoran MD Unavailable Encounter Details Date Type Department Care Team (Late st Contact Info) Description 08/16/2021 Transcribed Document [facility] [place] Family [place] [address] ProviderRashard MD [address] [place] [address] Social History Tobacco Use Types Packs/Day Years Used Date Smoking Tobacco: Never Assessed Comments Unknown Sex and Gender Information Value Date Recorded Sex Assigned at Not on file Legal Sex Female 1:15 PM CDT Gender Identity Not on file Sexual Orientation Not on file documented as of this encounter Miscellaneous Notes * Cerner Conversion Note - Rashard Gonzalez MD - 08/16/2021 9:42 AM INTELLIGENCE CHIEF Patient Education Materials Follows: Groin Site Care Refer to this sheet in the next few weeks. These instructions provide you with information on caring for yourself after your procedure. Your caregiver may also give you more specific instructions. Your treatment has been planned according to current medical practices, but problems sometimes occur. Call your caregiver if you have any problems or questions after your procedure. HOME CARE INSTRUCTIONS ? You may shower 24 hours after the procedure. Remove the bandage (dressing ) and gently wash the site with plain soap and water. Gently pat the site dry. ? Do not apply powder or lotion to the site. ? Do not sit in a bathtub, swimming pool, or whirlpool for 5 to 7 days. ? No bending, squatting, or lifting anything over 10 pounds (4.5 kg) as directed by your caregiver. ? Inspect the site at least twice daily. ? Do not drive home if you are discharged the same day of the procedure. Have someone else drive you. ? You may drive 24 hours after the procedure unless otherwise instructed by your caregiver. What to expect: ? Any bruising will usually fade within 1 to 2 weeks. ? Blood that collects in the tissue (hematoma ) may be painful to the touch. It should usually decrease in size and tenderness within 1 to 2 weeks. SEEK IMMEDIATE MEDICAL CARE IF: ? You have unusual pain at the groin site or down the affected leg. ? You have redness, warmth, swelling, or pain at the groin site. ? You have drainage (other than a small amount of blood on the dressing). ? You have chills. ? You have a fever or persistent symptoms for more than 72 hours. ? You have a fever and your symptoms suddenly get worse. ? Your leg becomes pale, cool, tingly, or numb. ? You have heavy bleeding from the site. Hold pressure on the site. Document Released: 08/30/2011 Document Revised: 10/19/2012 Document Reviewed: 08/30/2011 ExitCare? Patient Information ?2014 [employer]. Pharmacology General Anesthesia, Adult, Care After This sheet gives you information about how to care for yourself after your procedure. Your health care provider may also give you more specific instructions. If you have problems or questions, contact your health care provider. What can I expect after the procedure? After the procedure, the following side effects are common: ??? Pain or discomfort at the IV site. ??? Nausea. ??? Vomiting. ??? Sore throat. ??? Trouble concentrating. ??? Feeling cold or chills. ??? Feeling weak or tired. ??? Sleepiness and fatigue. ??? Soreness and body aches. These side effects can affect parts of the body that were not involved in surgery. Follow these instructions at home: For the [...] your own. Eating and drinking ??? Follow any instructions from your health care provider about eating or drinking restrictions. ??? When you feel hungry, start by eating small amounts of foods that are soft and easy to digest (bland), such as toast. Gradually return to your regular diet. ??? Drink enough fluid to keep your urine pale yellow. ??? If you vomit, rehydrate by drinking water, juice, or clear broth. General instructions ??? If you have sleep apnea, surgery and certain medicines can increase your risk for breathing problems. Follow instructions from your health care provider about wearing your sleep device: ? Anytime you are sleeping, including during daytime naps. ? While taking prescription pain medicines, sleeping medicines, or medicines that make you drowsy. ??? Have a responsible adult stay with you for the time you are told. It is important to have someone help care for you until you are awake and alert. ??? Return to your normal activities as told by your health care provider. Ask your health care provider what activities are safe for you. ??? Take gjzc-lxi-tltgahl and prescription medicines only as told by your health care provider. ??? If you smoke, do not smoke without supervision. ??? Keep all follow-up visits as told by your health care provider. This is important. Contact a health care provider if: ??? You have nausea or vomiting that does not get better with medicine. ??? You cannot eat or drink without vomiting. ??? You have pain that does not get better with medicine. ??? You are unable to pass urine. ??? You develop a skin rash. ??? You have a fever. ??? You have redness around your IV site that gets worse. Get help right away if: ??? You have difficulty breathing. ??? You have chest pain. ??? You have blood in your urine or stool, or you vomit blood. Summary ??? After the procedure, it is common to have a sore throat or nausea. It is also common to feel tired. ??? Have a responsible adult stay with you for the time you are told. It is important to have someone help care for you until you are awake and alert. ??? When you feel hungry, start by eating small amounts of foods that are soft and easy to digest (bland), such as toast. Gradually return to your regular diet. ??? Drink enough fluid to keep your urine pale yellow. ??? Return to your normal activities as told by your health care provider. Ask your health care provider what activities are safe for you. This information is not intended to replace advice given to you by your health care provider. Make sure you discuss any questions you have with your health care provider. Document Revised: 04/12/2021 Document Reviewed: 11/09/2020 Elsevier Patient Education ? 2020 [employer] Inc[employer] Procedures Left Atrial Appendage Closure Device Implantation, Care After The following information offers guidance on how to care for yourself after your procedure. Your health care provider may also give you more specific instructions. If you have problems or questions, contact your health care provider. What can I expect after the procedure? After the procedure, it is common to have: ??? Some pain, swelling, soreness, and bruising around the site where a long, thin tube (catheter) was inserted. ??? Tiredness (fatigue). Follow these instructions at home: Medicines ??? Take hyyl-ren-qsxxmov and prescription medicines only as told by your health care provider. ??? If you were prescribed antibiotic medicine, take it as told by your health care provider. Do not stop taking the antibiotic even if you start to feel better. ??? You may need to take medicines to prevent blood clots. Catheter insertion area care ??? Follow instructions from your health care provider about how to take care of the catheter insertion site. Make sure you: ? Wash your hands with soap and water for at least 20 seconds before and after you change your bandage (dressing). If soap and water are not available, use hand ammonium sulfate operator. ? Change your dressing as told by [...] care provider tells you to do that. Skin glue and adhesive strips usually fall off on their own. ??? Check your catheter insertion area every day for signs of infection. Check for: ? More redness, swelling, or pain. ? Fluid or blood. ? Warmth. ? Pus or a bad smell. ? A lump or bump that may develop. Activity ??? Do not lift anything that is heavier than 5 lb (2.3 kg), or the limit that you are told, until your health care provider says that it is safe. ??? Avoid activities that take a lot of effort (are strenuous). Ask your health care provider what activities are safe for you. ??? Avoid sexual activity until your health care provider says that it is safe. ??? Do not drive for the time you are told if you were given a medicine to help you relax (sedative) during the procedure. Ask your health care provider when it is safe for you to drive. Lifestyle ??? Do not use any products that contain nicotine or tobacco. These include cigarettes, chewing tobacco, and vaping devices, such as e-cigarettes. If you need help quitting, ask your health care provider. ??? If you drink alcohol: . ? Limit how much you use to: ? 0-1 drink a day for women. ? 0?2 drinks a day for men. ? Know how much alcohol is in your drink. In the [place] one drink equals one 12 oz bottle of beer (355 mL), one 5 oz glass of wine (148 mL), or one 1? oz glass of hard liquor (44 mL). General instructions ??? Do not take baths, swim, shower, or use a hot tub until your health care provider approves. ??? Follow instructions from your health care provider about eating or drinking restrictions. You may need to follow a diet that is low in salt (sodium) and low in fat to prevent heart problems. ??? Keep all follow-up visits. This is important. Contact a health care provider if: ??? You have severe pain that does not get better with medicine. ??? You have more redness, swelling, or pain around your catheter insertion site. ??? You have fluid or blood coming from your catheter insertion area. ??? Your catheter insertion site feels warm to the touch. ??? You have pus or a bad smell coming from your catheter insertion area. ??? You have a fever. ??? You have nausea and vomiting. ??? You develop a lump or bump in your catheter insertion area. Get help right away if: ??? The catheter insertion area is bleeding, and the bleeding does not stop when you put steady pressure on the area. ??? You have chest pain. ??? You have trouble breathing. ??? You have dizziness. ??? You faint. ??? You have any symptoms of a stroke. BE FAST is an easy way to remember the main warning signs of a stroke: ? B - Balance. Signs are dizziness, sudden trouble walking, or loss of balance. ? E - Eyes. Signs are trouble seeing or a sudden change in vision. ? F - Face. Signs are sudden weakness or numbness of the face, or the face or eyelid drooping on one side. ? A - Arms. Signs are weakness or numbness in an arm. This happens suddenly and usually on one side of the body. ? S - Speech. Signs are sudden trouble speaking, slurred speech, or trouble understanding what people say. ? T - Time. Time to call emergency services. Write down what time symptoms started. ??? You have other signs of a stroke, such as: ? A sudden, severe headache with no known cause. ? Nausea or vomiting. ? Seizure. These symptoms may represent a serious problem that is an emergency. Do not wait to see if the symptoms will go away. Get medical help right away. Call your local emergency services (911 in the [place] Do not drive yourself to the hospital. Summary ??? It is common to have some pain and soreness after this procedure. ??? Check your catheter insertion area every day for signs of infection, such as more redness, swelling, or pain. ??? Do not take baths, swim, shower, or use a hot tub until your health care provider approves. This information is not intended to replace advice given to you by your health care provider. Make sure you discuss any questions you have with your health care provider. Document Revised: 04/05/2021 Document Reviewed: 04/05/2021 Elsevier Patient Education ? 2020 [employer] documented in this encounter Plan of Treatment Upcoming Encounters Date Type Department Care Team (Late st Contact Info) Description 08/23/2025 12:45 PM EST Office Visit [facility] Electrophysiology [address] [place] [phone] [place] [address] [place] [address] [address] [place] [id number] documented as of this encounter Visit Diagnoses Not on filedocumented in this encounter Care Teams Securities Dealer Relationship Specialty Start Date End Date Alfred Cantu MD [address] [place] [address] PCP - General General Internal Medicine 08/29/22 [place] [address] [place] [address] [address] [place], [place] [id number] Jewel Hole Driller Interventional Cardiology 08/29/22 Vik Corcoran MD [address] [place] [address] [address] [place] [address] Jewel Hole Driller Electrophysiology 05/19/24 documented as of this encounter
--- OUTSIDE RECORDS SUMMARY | 2025-02-18 10:43 | XMS_ITS | Encounter Summary ---
Author Organization [employer] ([place], [place], [place], [place]) Address [address] [place] [address] Care Team Providers Care Communication Skills Instructor Name Role Phone Alfred Cantu MD Primary Care Provider [phone] Nivia Key MD Unavailable [phone] Vik Corcoran MD Unavailable Encounter Details Date Type Department Care Team (Late st Contact Info) Description 07/24/2021 Transcribed Document [facility] [place] [address] ProviderRashard MD [address] [place] [address] Social History Tobacco Use Types Packs/Day Years Used Date Smoking Tobacco: Never Assessed Comments Unknown Sex and Gender Information Value Date Recorded Sex Assigned at Not on file Legal Sex Female 1:15 PM CDT Gender Identity Not on file Sexual Orientation Not on file documented as of this encounter Miscellaneous Notes * Cerner Conversion Note - Rashard ProviderMD - 07/24/2021 2:43 PM [employer] [facility] [address] KATHY CARTER :1940 Visit Time:07/24/2021 Your Visit Summary Your Care Team Admitting Physician - NIVIA KEY MD-JODY Attending Physician - NIVIA KEY MD-CAR Primary Care Physician - ALFRED CANTU (REF), MD-INT Referring Physician - NIVIA KYE MD-CAR Your Diagnosis Paroxysmal atrial fibrillation, Paroxysmal atrial fibrillation These Are Your Goals No qualifying data available. Discharge Vitals Heart Rate (Monitored) 58 Respiratory Rate 12 Blood Pressure 154/74 What to do next Follow-Up Appointments Follow Up with NIVIA KEY MD-CAR When Within 2 to 3 days Comments Office to call with appoint/instructions Where: [address] [place] [address] [address] [place] [address] Medications What How Much When Instructions Next Dose albuterol (ProAir HFA 90 mcg/ inh inhalation aerosol) 2 Puff(s) Inhalation Four Times A Day as needed for for wheezing albuterol-ipratropium (DuoNeb 0.5 mg-2.5 mg/ 3 mL inhalation solution) 3 Milliliter(s) Nebulized Inhalation Every 6 Hours as needed for Dyspnea Duration: 7 Day(s) amiodarone (amiodarone 200 mg oral tablet) 0.5 Tablet(s) Oral Every Day amLODIPine (Norvasc 2.5 mg oral tablet) Oral Every Day aspirin (aspirin 81 mg oral tablet) 1 Tablet(s) Oral Every Day carvedilol (Coreg 12.5 mg oral tablet) 1 Tablet(s) Oral Two Times A Day diazePAM (diazePAM 5 mg oral tablet) 1 Tablet(s) Oral Every Day as needed for for anxiety fluticasone-salmeterol (Advair Diskus 250 mcg-50 mcg inhalation powder) 1 Puff(s) Inhalation Two Times A Day irbesartan Oral Every Day montelukast (Singulair 10 mg oral tablet) 1 Tablet(s) Oral Every Day omeprazole (omeprazole 20 mg oral delayed release capsule) 2 Capsule(s) Oral Every Day Take your medications faithfully. Do NOT [...] drugs Immunizations This Visit No Immunizations Found Stroke/TIA Instructions Individualized Stroke Risk Factors Individualized Stroke Risk Factors *Q: Atrial fibrillation, Hypertension/High blood pressure, Obesity Stroke/TIA Signs/Symptoms to Report Immediately: Sudden onset difficulty speaking, Sudden onset difficulty understanding speech, Sudden onset change in vision, Sudden onset weakness particulary on one side of the body, Sudden onset numbness/tingling, Sudden severe headache, Sudden dizziness or trouble with gait, Call : EMS activation is crucial Mutually Agreed Upon Goals My LDL Level: My LDL Level: Education Materials Transesophageal Echocardiogram Transesophageal echocardiogram (PETER) is a test that uses sound waves (echocardiogram) to produce very clear, detailed images of the heart. PETER is done by passing a flexible tube down the esophagus. The heart is located in front of the esophagus. PETER may be done: ??? To check how well your heart valves are working. ??? To check for any abnormal growth or tumor ??? To look for blood clots ??? To check for infection of the lining of the heart (endocarditis). ??? To evaluate the dividing wall (septum) of the heart and check for a hole that did not close after (patent foramen ovale or atrial septal defect). ??? To help diagnose a tear in the wall of the blood vessels (aortic dissection). ??? To look at the heart shape, size, and function. Any changes can be associated with certain conditions, including heart failure, aneurysm, and coronary heart disease, CAD. ??? During cardiac valve surgery. This allows the surgeon to assess the valve repair before closing the chest. ??? During a variety of other cardiac procedures to guide positioning of catheters. ??? To monitor your heart's response to IV fluids or medicine. PETER is usually not a painful procedure. You may feel the probe press against the back of the throat. The probe does not enter the trachea and does not affect your breathing. Tell a health care provider about: ??? Any allergies you have. ??? All medicines you are taking, including vitamins, herbs, eye drops, creams, and wzkf-ggy-axlambd medicines. ??? Any problems you or family members have had with anesthetic medicines. ??? Any blood disorders you have. ??? Any surgeries you have had. ??? Any medical conditions you have. ??? Any swallowing difficulties. ??? Whether you have or have had a blockage of the esophagus (esophageal obstruction). ??? Whether you are or may be . What are the risks? Generally, this is a safe procedure. However, problems may occur, including: ??? Damage to other structures or organs. ??? A tear of the esophagus (esophageal rupture). ??? Irregular heart beat (arrhythmia). ??? Hoarse voice or difficulty swallowing. ??? Bleeding (hemorrhage). What happens before the procedure? Staying hydrated Follow instructions from your health care provider about hydration, which may include: ??? Up to 3 hours before the procedure ??? you may continue to drink clear liquids, such as water, clear fruit juice, black coffee, and plain tea. Eating and drinking Follow instructions from your health care provider about eating and drinking, which may include: ??? 8 hours before the procedure ??? stop eating heavy meals or foods such as meat, fried foods, or fatty foods. ??? 6 hours before the procedure ??? stop eating light meals or foods, such as toast or cereal. ??? 6 hours before the procedure ??? stop drinking milk or drinks that contain milk. ??? 3 hours before the procedure ??? stop drinking clear liquids. General instructions ??? You will need to remove any dentures or dental retainers. ??? Plan to have someone take you home from the hospital or clinic. ??? Plan to have a responsible adult care for you for at least 24 hours after you leave the hospital or clinic. This is important. ??? Ask your health care provider about: ? Changing or stopping your normal medicines. This is important if you take diabetes medicines or blood thinners. ? Taking lfar-cod-ketneta medicines, vitamins, herbs, and supplements. ? Taking medicines such as aspirin and ibuprofen. These medicines can thin your blood. Do not take these medicines unless your health care provider tells you to take them. What happens during the procedure? To reduce your risk of infection: ? Your health care team will wash or sanitize their hands. ? Hair may be removed from the surgical area. ? Your skin will be washed with soap. ??? An IV will be inserted into one of your veins. ??? You will be given one or both of the following: ? A medicine to help you relax (sedative). ? A medicine to be sprayed or gargled in order to numb the back of your throat (local anesthetic). ??? Your blood pressure, heart rate, and breathing (vital signs) will be monitored during the procedure. ??? You may be asked to lay on your left side. ??? A bite block will be placed in your mouth to keep you from biting the tube during the procedure. ??? The tip of the PETER probe will be placed into the back of your mouth. You will be asked to swallow. This helps to pass the tip of the probe into the esophagus. ??? Once the tip of the probe is in the correct area, your health care provider will take pictures of the heart. ??? The probe and bite block will be removed when the procedure is done. The procedure may vary among health care providers and hospitals What happens after the procedure? Your blood pressure, heart rate, breathing rate, and blood oxygen level will be monitored until the medicines you were given have worn off. ??? When you first wake up, your throat may feel slightly sore and will probably still feel numb. This will improve slowly over time. You will not be allowed to eat or drink until the numbness has gone away. ??? Do not drive for 24 hours if you received a sedative. Summary ??? Transesophageal echocardiogram (PETER) is a test that uses sound waves (echocardiogram) to produce very clear, detailed images of the heart. ??? PETER is done by passing a flexible tube down the esophagus. ??? Generally, this is a safe procedure. However, problems may occur, including damage to other structures or organs, bleeding, irregular heart beat, and a hoarse voice or trouble swallowing. ??? Tell your health care provider about any medicines and medical conditions you may have, as some conditions may increase your risk of complications. This information is not intended to replace advice given to you by your health care provider. Make sure you discuss any questions you have with your health care provider. Document Revised: 01/06/2018 Document Reviewed: 10/24/2017 [employer] Patient Education ?? 2020 [employer] Moderate Conscious Sedation, Adult, Care After This [...] soon. Follow these instructions at home: For at least 24 hours after the procedure: ??? Rest. ??? Do not: ? Participate in activities where you could fall or become injured. ? Drive. ? Use machinery. ? Drink alcohol. ? Take sleeping pills or medicines that cause drowsiness. ? Make important decisions or sign legal documents. ? Take care of children on your own. Eating and drinking ??? Follow the diet recommended by your health care provider. ??? Drink enough fluid to keep your urine pale yellow. ??? If you vomit: ? Drink water, juice, or soup when you can drink without vomiting. ? Make sure you have little or no nausea before eating solid foods. General instructions ??? Have a responsible adult stay with you until you are awake and alert. ??? Take evhb-utt-kgckmfk and prescription medicines only as told by your health care provider. ??? Do not smoke. ??? Keep all [...] Know the things you should not do for at least 24 hours after the procedure. ??? Follow the diet [...] with your health care provider. Document Revised: 06/22/2020 Document Reviewed: 06/22/2020 [employer] Patient Education ?? 2020 [employer]. What to do if you are sick with coronavirus disease 2019 (COVID-19) If you are sick with COVID-19 or suspect you are infected with the virus that causes COVID-19, follow the steps below to help prevent the disease from spreading to people in your home and community. Missing Image - the embedded image is not supported COVID-19 and Animals for more information. Call ahead before visiting your doctor If you have a medical appointment, call the healthcare provider and tell them that you have or may have COVID-19. This will help the healthcare provider???s office take steps to keep other people from getting infected or exposed. Wear a facemask You should wear a facemask when you are around other people (e.g., sharing a room or vehicle) or pets and before you enter a healthcare provider???s office. If you are not able to wear a facemask (for example, because it causes trouble breathing), then people who live with you should not stay in the same room with you, or they should wear a facemask if they enter your room. Cover your coughs and sneezes Cover your mouth and nose with a tissue when you cough or sneeze. Throw used tissues in a lined trash can; immediately wash your hands with soap and water for at least 20 seconds or clean your hands with an alcohol-based hand fire ranger that contains at least 60 to 95% alcohol, covering all surfaces of your hands and rubbing them together until they feel dry. Soap and water should be used preferentially if hands are visibly dirty. Avoid sharing personal household items You should not share dishes, drinking glasses, cups, eating utensils, towels, or bedding with other people or pets in your home. After using these items, they should be washed thoroughly with soap and water. Clean your hands often Wash your hands often with soap and water for at least 20 seconds. If soap and water are not available, clean your hands with an alcohol-based hand fire ranger that contains at least 60% alcohol, covering all surfaces of your hands and rubbing them together until they feel dry. Soap and water should be used preferentially if hands are visibly dirty. Avoid touching your eyes, nose, and mouth with unwashed hands. Clean all ???high-touch?? surfaces every day High touch surfaces include counters, tabletops, doorknobs, bathroom fixtures, toilets, phones, keyboards, tablets, and bedside tables. Also, clean any surfaces that may have blood, stool, or body fluids on them. Use a household cleaning spray or wipe, according to the label instructions. Labels contain instructions for safe and effective use of the cleaning product including precautions you should take when applying the product, such as wearing gloves and making sure you have good ventilation during use of the product. Monitor your symptoms Seek prompt medical attention if your illness is worsening (e.g., difficulty breathing). Before seeking care, call your healthcare provider and tell them that you have, or are being evaluated for, COVID-19. Put on a facemask before you enter the facility. These steps will help the healthcare provider???s office to keep other people in the office or waiting room from getting infected or exposed. Ask your healthcare provider to call the local or state health department. Persons who are placed under active monitoring or facilitated self-monitoring should follow instructions provided by their local health department or occupational health professionals, as appropriate. If you have a medical emergency and need to call 911, notify the dispatch personnel that you have, or are being evaluated for COVID-19. If possible, put on a facemask before emergency medical services arrive. Discontinuing home isolation Patients with confirmed COVID-19 should remain under home isolation precautions until the risk of secondary transmission to others is thought to be low. The decision to discontinue home isolation precautions should be made on a wvfj-zt-qbtd basis, in consultation with healthcare providers and state and local health departments. For more information: HYPERLINK http://www.cdc.gov/COVID19 www.cdc.gov/COVID19 DISCLAIMER: COVID-19 information is rapidly changing and documents will be updated accordingly. October 15, 2019 It???s Cold and Flu Season ??? How are you protecting yourself? The start of each year is often met with the peak of cold and flu season. This year is no different except that we are facing the new strain of coronavirus, COVID-19, and the widespread media attention this public health outbreak is causing. It is understandable that many are feeling overwhelmed by the thought of catching coronavirus and are concerned about how to best care for ourselves and our loved ones during this challenging time. Take comfort in knowing there are simple things you can do each and every day to help ensure your health is protected. Scrub a dub! Wash your hands! As simple as this sounds, it truly is the most effective way to stop the spread of germs. Be sure to use soap, and to make sure you are being thorough enough, sing the ???Happy Birthday?? song which is just the right length to ensure a thorough cleaning of your hands. Wash all parts of your hands, including the ???webs?? between your fingers and thumbs. When without, use a squeeze! If you are unable to get to a sink for soap and water to thoroughly wash your hands, use hand fire ranger. While handwashing is best, hand fire ranger helps to reduce the spread of germs when you are out and about. Have hand fire ranger in several locations so you can always have some on hand ??? think about placing some bottles in your car, your purse, your suitcase, the diaper bag, or even in your coat pocket. Don???t rub, don???t touch! As tempting as it is to rub those scratchy eyes during allergy season or to rub a runny nose, don???t. In fact, if you can, try to avoid touching your face as much as possible, especially with unclean hands. Our eyes, nose, and mouth are easy access points for germs to enter our bodies. When in doubt, don???t go out! If you are feeling under the weather, stay home. If your child is feeling sick, keep them home. It is so important to not only rest when you are starting to get sick or are already under the weather, but also staying home and away from others helps to keep people from also getting sick. Don???t Loris It! Sneezing this time of year is part of life, especially if you suffer from allergies or do have the cold or flu. To help minimize the spread of germs from sneezing or coughing, use a Kleenex or your elbow to protect against rogue spray and to help keep your hands clean. And remember, most people will have a runny nose, coughs and sneezes these days either from seasonal allergies, the cold or the flu, but if you do feel ill or feel like you need some help to feel better, please contact your Primary Care Provider to determine the best course of treatment for you which may include home care for mild cases or making an appointment to be seen to address more moderate needs. To find a PCP near you, please visit HYPERLINK [email or web address]/ [email or web address]s.org. October 15, 2019 Emergency Awareness and Preventative Care STROKE is [...] Assistance with quitting is available by contacting 2-819-DKXH-NOW. This is a free resource providing counseling, support, and referral. Or you may contact your personal physician. National Suicide Prevention Lifeline: The National Suicide Prevention [...] This Visit (last charted value for your 07/24/2021 visit) Microbiology 07/24/2021 8:20 AM SARS-CoV-2 (COVID19 PCR): Negative Patient Name:KATHY CARTER I have received and understand this information and was given the opportunity to ask questions. Patient/Document Imaging Manager Name: Patient/Document Imaging Manager Signature: Relationship to Patient: Clinician/Hospital Document Imaging Manager Signature: Date: documented in this encounter Plan of Treatment Upcoming Encounters Date Type Department Care Team (Late st Contact Info) Description 08/23/2025 12:45 PM EST Office Visit [facility] Electrophysiology [address] [place] [phone] Vik Corcoran MD [address] [place] [address] [address] documented as of this encounter Visit Diagnoses Not on filedocumented in this encounter Care Teams Communication Skills Instructor Relationship Specialty Start Date End Date Alfred Cantu MD [address] [place] [address] PCP - General General Internal Medicine 08/29/22 Nivia Key MD [address] [place] [address] [address] Statement Processor Interventional Cardiology 08/29/22 Vik Corcoran MD [address] [place] [address] [address] Statement Processor Electrophysiology 05/19/24 documented as of this encounter
--- OUTSIDE RECORDS SUMMARY | 2025-02-18 10:43 | XMS_ITS | Encounter Summary ---
Author Organization [employer] ([place], [place], [place], [place]) Address [address] [place] [address] Care Team Providers Care Geriatric Psychiatrist Name Role Phone Alfred Cantu MD Primary Care Provider [phone] Lyndsey Key MD Unavailable [phone] Vik Corcoran MD Unavailable Encounter Details Date Type Department Care Team (Late st Contact Info) Description 10/25/2018 Transcribed Document [facility] Family [place] [address] ProviderRashard MD [address] [place] [id number] Social History Tobacco Use Types Packs/Day Years Used Date Smoking Tobacco: Never Assessed Comments Unknown Sex and Gender Information Value Date Recorded Sex Assigned at Not on file Legal Sex Female 1:15 PM CDT Gender Identity Not on file Sexual Orientation Not on file documented as of this encounter Miscellaneous Notes * Cerner Conversion Note - Rashard ProviderMD - 10/25/2018 6:54 PM CDT Education-Respiratory Therapy Entered On: 10/25/2018 18:55 EDT Performed On: 10/25/2018 18:54 EDT by Marilyn James RN Teaching/Learning Assessment Barriers To Learning : None evident Individuals Taught : Patient, Spouse Readiness to Learn : Cooperative Highest Level of Education : None Baseline Knowledge of Topic : Good Readiness to Learn : Explanation Learning Style Preferences Patient : Demonstration, Verbal explanation Learning Style Preferences Family : Verbal explanation Marilyn James RN - 10/25/2018 18:54 EDT Education Topics, Respiratory Therapy Resp Therapy Education Grid Incentive Spirometry : Verbalizes understanding Marilyn James RN - 10/25/2018 18:54 EDT Education: Smoking/Tobacco Cessation Topics Smoking Cess Educatin Grid Advice Given to Stop Smoking : Patient/Caregiver declines education Risks/Benefits of Smoking : Patient/Caregiver declines education Second Hand Smoke : Patient/Caregiver declines education Ed-Smoking Cessation Programs : Patient/Caregiver declines education Ed-Smoking Cessation, Other : Patient/Caregiver declines education Marilyn James RN - 10/25/2018 18:54 EDT Tobacco Cessation Counseling Grid Recognizing Danger Situations : Refused Negative Moods and/or Stress : Refused Being Around Other Tobacco Users : Refused Drinking Alcohol : Refused Experiencing Urges : Refused Tobacco Cues and Availability : Refused Developing Coping Skills : Refused Anticipate/Avoid Temptation/Triggers : Refused Strategies to Reduce Negative Moods : Refused Reduce Stress/Exposure to Tobacco Cues : Refused Activities to [place] With Smoking Urges : Refused Basic Information About Quitting : Refused Tobacco Use Increases Chance of Relapse : Refused Withdrawal Symptoms Peak After Quitting : Refused Addictive Nature of Tobacco : Refused Marilyn James RN - 10/25/2018 18:54 EDT Tobacco Cessation Counseling Comment : not a smoker Marilyn James RN - 10/25/2018 18:54 EDT Electronically signed by [facility] Conversion Food Service Cashier Cerner at 11/28/2022 5:38 PM CDT documented in this encounter Plan of Treatment Upcoming Encounters Date Type Department Care Team (Late st Contact Info) Description 08/23/2025 12:45 PM EST Office Visit [facility] Electrophysiology [address] [phone] Vik Corcoran MD [address] [facility] [address] [place] [address] documented as of this encounter Visit Diagnoses Not on filedocumented in this encounter Care Teams Geriatric Psychiatrist Relationship Specialty Start Date End Date Alfred Cantu MD [address] [place] [address] PCP - General General Internal Medicine 08/29/22 Lyndsey Key MD [address] [facility] [address] [address] Transit Bus Operator Interventional Cardiology 08/29/22 [place] [address] [place] [address] [address] Transit Bus Operator Electrophysiology 05/19/24 documented as of this encounter
--- OUTSIDE RECORDS SUMMARY | 2025-02-18 10:43 | XMS_ITS | Encounter Summary ---
Author Organization [employer] ([place], [place], [place], [place]) Address [address] [place] [address] Care Team Providers Care Enterprise Infrastructure Architect Name Role Phone Alfred Cantu MD Primary Care Provider Lyndsey Key MD Unavailable [phone] Vik Corcoran MD Unavailable Encounter Details Date Type Department Care Team (Late st Contact Info) Description 10/22/2018 Transcribed Document [facility] [place] [facility] [place] [address] ProviderRashard MD [address] [place] [address] Social History Tobacco Use Types Packs/Day Years Used Date Smoking Tobacco: Never Assessed Comments Unknown Sex and Gender Information Value Date Recorded Sex Assigned at Not on file Legal Sex Female 1:15 PM CDT Gender Identity Not on file Sexual Orientation Not on file documented as of this encounter Miscellaneous Notes * Cerner Conversion Note - Rashard ProviderMD - 10/22/2018 1:27 PM CDT Evaluation, Occupational Therapy Entered On: 10/22/2018 14:58 EDT Performed On: 10/22/2018 14:42 EDT by FOSTER ALFARO, OTR/L General Information, OT Visit Type, OT : Initial evaluation Patient Orders : Order Date Order Ordering 10/22/2018 13:27 Occupational Therapy Evaluation and Treatme Ordered By: KENNETH OSBORN MD Active Diagnoses : No Qualifying Diagnoses Therapy Diagnosis, OT : Decreased ind in ADL and functional mobility Onset of Problem, OT : 10/22/2018 EDT Admission Date : 10/20/2018 23:00 Co-treated by, OT : Physical Therapist Personal Devices : Personal Devices No Devices Recorded Assistive Devices : Assistive Devices No Devices Recorded Isolation Maintained : Droplet General Information Comment, OT : CHF, mitral regurgitation, FLU FOSTER ALFARO OTR/Sujey - 10/22/2018 14:46 EDT General Status Patient Received Status : Supine in bed Treatment Start Time : 10/22/2018 14:25 EDT Patient Left Status : Up in chair, RN/PCT informed, All needs met and within reach Treatment End Time : 10/22/2018 14:42 EDT Treatment Time : 17 Minute(s) FOSTER ALFARO OTR/Sujey - 10/22/2018 14:46 EDT History and Environment, OT Living Situation, Therapy : Home Patient Lives With : Spouse Professional Skilled Services : None Persons Providing Information : Patient Home Equipment, Therapy : Cane, Walker Home Setup : One story Stairs : Yes Stair Location(s) : Outside Outside Stairs, Number of Steps : 1 FOSTER ALFARO OTR/Sujey - 10/22/2018 14:46 EDT Prior LOF Bathing, OT : Independent Prior LOF Bed Mobility : Independent Prior LOF Upper Body Dressing, OT : Independent Prior LOF Lower Body Dressing, OT : Independent Prior LOF Toileting : Independent Prior LOF Transfer : Independent Prior LOF Grooming, OT : Independent Prior LOF for IADLs, OT : Independent FOSTER ALFARO OTR/Sujey - 10/22/2018 14:46 EDT Upper Extremity Upper Extremity Dominance : Right Right UE Active ROM : WFL Left UE Active ROM : WFL FOSTER ALFARO OTR/Sujey - 10/22/2018 14:46 EDT Self Care/Home Management, OT Self Feeding Assist Level, OT : Independent, complete Grooming Assist Level, OT : Independent, complete Bathing Assist Level, OT : Assist, minimal Upper Body Dressing Assist Level, OT : Independent, complete Lower Body Dressing Assist Level, OT : Assist, minimal Toileting Assist Level : Assist, minimal Toilet Transfer Assist Level : Assist, minimal Toilet Transfer Device : Belt, gait, Walker, rolling FOSTER ALFARO OTR/Sujey - 10/22/2018 14:46 EDT Functional Mobility Mobility Grid Bed Roll Left : Supervision/set-up Bed Roll Right : Supervision/set-up Bed Scooting : Supervision/set-up Supine to Sit : Rehab Minimal assistance Sit to Stand : Rehab Minimal assistance Bed to Chair : Rehab Minimal assistance Chair to Bed : Rehab Minimal assistance Stand to Sit : Rehab Minimal assistance Sit to Supine : Rehab Minimal assistance FOSTER ALFARO OTR/Sujey Faria 10/22/2018 14:46 EDT Cognition Assessment, OT Orientation : Oriented x 4 FOSTER ALFARO OTR/Sujey - 10/22/2018 14:46 EDT Indication Assessment, OT Occupational Therapy Indicated : Yes Problem List, OT : Impaired, bed mobility, Impaired, activities daily living, Impaired, endurance tolerance, Impaired functional mobility, Impaired, sitting balance, Impaired, standing balance, Impaired, strength, Impaired, transfers Potential Barriers, OT : Acuity of illness Rehabilitation Potential, OT : FOSTER Titus OTR/Sujey - 10/22/2018 14:46 EDT Plan of Care, OT OT Tx Plan/Goals Established w Patient : Yes OT Frequency Rehab : Five days per week OT Duration Rehab : Fourteen days OT Treatments Planned : Activities of daily living, Balance training, Functional mobility training, Pain management, Safety education, Therapeutic activities FOSTER ALFARO OTR/Sujey - 10/22/2018 14:46 EDT Tea And Spice Supervisor Goals, OT Grooming LTG Grid Goal #1 Activity : Grooming Assist : Independent, complete Date to Meet : 11/05/2018 EDT Goal Status : Initial goal FOSTER ALFARO OTR/Sujey - 10/22/2018 14:46 EDT Dressing, Lower Body LTG Grid Goal #1 Activity : Dressing, Lower Body Assist : Supervision or set up Date to Meet : 11/05/2018 EDT Goal Status : Initial goal FOSTER ALFARO OTR/Sujey - 10/22/2018 14:46 EDT Toilet Transfer LTG Grid Goal #1 Activity : Toilet Transfer, Ambulatory Assist : Independent, complete Date to Meet : 11/05/2018 EDT Goal Status : Initial goal FOSTER ALFARO OTR/Sujey - 10/22/2018 14:46 EDT Bed Mobility/ Bed Transfer LTG Grid Goal #1 Activity : Bed Mobility/Bed Transfer Assist : Independent, complete Date to Meet : 11/05/2018 EDT Goal Status : Initial goal FOSTER ALFARO OTR/L - 10/22/2018 14:46 EDT Treatment Note Subjective Comment : Per RN oked evaluation. Pt agreeable. Patient's Response to Treatment : Pt tolerated well. Additional Objective Information : Pt supine in bed and transfered to EOB with min A. Pt transfered to toilet with min A (RN assisted). Pt on BSC and required min A for toileting hygiene due to fagitue and weakness. Pt participated in OT evaluation. Pt transfered to chair with min A and gait belt. pt up in chair and educated on safety and plan for therapy. Assessment : Pt will benefit from continued skilled OT services. Plan for Treatment : See LTG FOSTER ALFARO OTR/L - 10/22/2018 14:46 EDT Pain Assessment Pain Scaled Used : 0-10 Pain scale Pain Score Pre-Intervention : 0 FOSTER ALFARO OTR/L - 10/22/2018 14:46 EDT Image 1 - Images currently included in the form version of this document have not been included in the text rendition version of the form. Anticipated Discharge Needs, OT/PT Anticipated Discharge to OT : Unit, rehabilitation FOSTER ALFARO OTR/L - 10/22/2018 14:46 EDT [place] OT Charges OT Selfcare/Hm Mgmt Ea 15 Min : 1 OT Eval Moderate Complexity : 1 FOSTER ALFARO OTR/L - 10/22/2018 14:46 EDT Electronically signed by Kavita [facility] Conversion Marketing Communications Manager Cerner at 11/28/2022 5:34 PM CDT documented in this encounter Plan of Treatment Upcoming Encounters Date Type Department Care Team (Late st Contact Info) Description 08/23/2025 12:45 PM EST Office Visit [facility] Electrophysiology [address] [place] [address] Vik Corcoran MD [address] [facility] [address] [place] [address] documented as of this encounter Visit Diagnoses Not on filedocumented in this encounter Care Teams Enterprise Infrastructure Architect Relationship Specialty Start Date End Date Alfred Cantu MD [address] [place] [facility] [address] [place] [address] PCP - General General Internal Medicine 08/29/22 Lyndsey Key MD [address] [place] [address] [id number] Provider Network Analyst Interventional Cardiology 08/29/22 Vik Corcoran MD [address] [place] [address] [id number] Provider Network Analyst Electrophysiology 05/19/24 documented as of this encounter
--- OUTSIDE RECORDS SUMMARY | 2025-02-18 10:43 | XMS_ITS | Encounter Summary ---
Author Organization [employer] ([place], [place], [place], [place]) Address [address] [place] [address] Care Team Providers Care Cytotechnologist Name Role Phone Alfred Cantu MD Primary Care Provider [phone] Lyndsey Key MD Unavailable [phone] Vik Corcoran MD Unavailable Encounter Details Date Type Department Care Team (Late st Contact Info) Description 07/24/2021 Transcribed Document [facility] [place] [facility] [place] [address] ProviderRashard MD [address] [place] [address] Social History Tobacco Use Types Packs/Day Years Used Date Smoking Tobacco: Never Assessed Comments Unknown Sex and Gender Information Value Date Recorded Sex Assigned at Not on file Legal Sex Female 1:15 PM CDT Gender Identity Not on file Sexual Orientation Not on file documented as of this encounter Miscellaneous Notes * Cerner Conversion Note - Rashard ProviderMD - 07/24/2021 7:48 AM POLICY CHANGE CLERK Nursing Discharge Summary Entered On: 07/24/2021 7:49 EST Performed On: 07/24/2021 7:48 EST by DEVIN SAENZ RN Discharge Documentation Patient Disposition, General : Discharge Discharge To : Home with ambulatory/outpatient follow-up Mode Of Departure, General Discharge : Private vehicle Accompanied By, Discharge : Spouse IV Discontinued : Yes Personal Belongings With Patient : Yes Discharge Instructions Reviewed With, Opportunity For Questions Given : Patient, Spouse Patient Education Completed : Yes Teaching Method : Explanation, Printed materials Teaching Evaluation : Verbalizes understanding DEVIN SAENZ, RN - 07/24/2021 7:48 EST Electronically signed by Kavita [facility] Conversion Green Chain Off Bearer Cerner at 11/29/2022 12:48 PM CDT documented in this encounter Plan of Treatment Upcoming Encounters Date Type Department Care Team (Late st Contact Info) Description 08/23/2025 12:45 PM EST Office Visit [facility] Electrophysiology [address] [place] [phone] Vik Corcoran MD [address] [place] [address] [address] [place] [address] documented as of this encounter Visit Diagnoses Not on filedocumented in this encounter Care Teams Cytotechnologist Relationship Specialty Start Date End Date Alfred Cantu MD [address] [place] [address] [place] [address] PCP - General General Internal Medicine 08/29/22 Lyndsey Key MD [address] [place] [address] [address] [place] [address] Tool Planer Set Up Operator Interventional Cardiology 08/29/22 Vik Corcoran MD [address] [place] [address] [address] Tool Planer Set Up Operator Electrophysiology 05/19/24 documented as of this encounter
--- OUTSIDE RECORDS SUMMARY | 2025-02-18 10:43 | XMS_ITS | Encounter Summary ---
Author Organization [employer] ([place], [place], [place], [place]) Address [address] [place] [address] Care Team Providers Care Food Specialist Name Role Phone Alfred Cantu MD Primary Care Provider [phone] Lyndsey Key MD Unavailable Vik Corcoran MD Unavailable Encounter Details Date Type Department Care Team (Late st Contact Info) Description 10/21/2018 Transcribed Document [facility] [place] [facility] [place] [address] ProviderRashard MD [address] [place] [address] Social History Tobacco Use Types Packs/Day Years Used Date Smoking Tobacco: Never Assessed Comments Unknown Sex and Gender Information Value Date Recorded Sex Assigned at Not on file Legal Sex Female 1:15 PM CDT Gender Identity Not on file Sexual Orientation Not on file documented as of this encounter Miscellaneous Notes * Cerner Conversion Note - Rashard ProviderMD - 10/21/2018 5:00 PM CDT Chart Check - Review Order Profile Entered On: 10/21/2018 16:38 EDT Performed On: 10/21/2018 17:00 EDT by JEAN CLAUDE CALDWELL RN Chart Check Chart Reviewed Date and Time : 10/21/2018 16:38 EDT Powerplans Initiated/Discontinued as Appropriate : Yes All Active Orders Reviewed : Yes JEAN CLAUDE CALDWELL RN - 10/21/2018 16:38 EDT Electronically signed by Kavita [facility] Conversion Procedures Tech Cerner at 11/28/2022 5:40 PM CDT documented in this encounter Plan of Treatment Upcoming Encounters Date Type Department Care Team (Late st Contact Info) Description 08/23/2025 12:45 PM EST Office Visit [facility] Electrophysiology [address] [place] [phone] [place] [address] [place] [address] [address] [place], [place] [id number] documented as of this encounter Visit Diagnoses Not on filedocumented in this encounter Care Teams Food Specialist Relationship Specialty Start Date End Date Alfred Cantu MD [address] [place] [address] PCP - General General Internal Medicine 08/29/22 [place] [address] [place] [address] [address] [place] [address] Surgical Training Specialist Interventional Cardiology 08/29/22 [place] [address] [place] [address] [address] [place], [place] [id number] Surgical Training Specialist Electrophysiology 05/19/24 documented as of this encounter
--- OUTSIDE RECORDS SUMMARY | 2025-02-18 10:43 | XMS_ITS | Encounter Summary ---
Author Organization [employer] ([place], [place], [place], [place]) Address [address] [place] [address] Care Team Providers Care Ax Survey Worker Name Role Phone Alfred Cantu MD Primary Care Provider [phone] Nivia Key MD Unavailable [phone] Vik Corcoran MD Unavailable Encounter Details Date Type Department Care Team (Late st Contact Info) Description 08/16/2021 Transcribed Document [facility] [place] [address] ProviderRashard MD [address] [place] [address] Social History Tobacco Use Types Packs/Day Years Used Date Smoking Tobacco: Never Assessed Comments Unknown Sex and Gender Information Value Date Recorded Sex Assigned at Not on file Legal Sex Female 1:15 PM CDT Gender Identity Not on file Sexual Orientation Not on file documented as of this encounter Miscellaneous Notes * Cerner Conversion Note - Rashard ProviderMD - 08/16/2021 3:00 PM CUSTOMS INVESTIGATOR [facility] [address] KATHY CARTER :1940 Visit Time:08/16/2021 Your Visit Summary Your Care Team Admitting Physician - NIVIA KEY MD-JODY Attending Physician - NIVIA KEY MD-CAR Primary Care Physician - ALFRED CANTU (REF), -INT Referring Physician - NIVIA KEY MD-CAR Your Diagnosis Paroxysmal atrial fibrillation, Paroxysmal atrial fibrillation These Are Your Goals No qualifying data available. Discharge Vitals Temperature 36.4 ??C Heart Rate (Monitored) 86 Respiratory Rate 22 Blood Pressure 169/95 What to do next Instructions From Your Care Team Diet after Discharge: Resume usual diet as tolerated Activity after Discharge: Rest and relax today, No strenuous activity, No lifting/pushing/pulling more than 10 pounds for 1 week., _ Driving Restrictions: No driving for 24 hours. Showering/Bathing: You may remove the dressing in 24 hours and shower. , No tub bathing, soaking or swimming for 3-5 days until site is healed. Medications: No changes to your current home medications., Take your Eliquis 5mg by mouth twice a day, so not stop until told to do so per cardiology. Follow-Up Appointments Follow Up with [facility] coordinator, [place], will notify you to schedule your next PETER procedure. When Within 6 weeks Medications What How Much When Instructions Next Dose apixaban (Eliquis 5 mg oral tablet) 1 Tablet(s) Oral Interval Every 12 Hours carvedilol (Coreg 12.5 mg oral tablet) 1 Tablet(s) Oral Two Times A Day albuterol (albuterol 0.63 mg/ 3 mL (0.021%) inhalation solution) 3 Milliliter(s) Nebulized Inhalation Three Times A Day as needed for Shortness of Breath albuterol (ProAir HFA 90 mcg/ inh inhalation aerosol) 2 Puff(s) Inhalation Four Times A Day as needed for for wheezing amiodarone (amiodarone 200 mg oral tablet) 0.5 Tablet(s) Oral Every Day amLODIPine (Norvasc 2.5 mg oral tablet) Oral At Bedtime diazePAM (diazePAM 5 mg oral tablet) 1 Tablet(s) Oral Every Day as needed for for anxiety fluticasone-salmeterol (Advair Diskus 250 mcg-50 mcg inhalation powder) 1 Puff(s) Inhalation Two Times A Day gabapentin 100 Milligram(s) Oral At Bedtime irbesartan 150 Milligram(s) Oral Every Day montelukast (Singulair 10 mg oral tablet) 1 Tablet(s) Oral Every Day omeprazole (omeprazole 20 mg oral delayed release capsule) 1 Capsule(s) Oral At Bedtime potassium chloride (Potassium Chloride (Bwz-Bqjx-Noe M20) 20 mEq oral tablet, extended release) [...] This Visit No Immunizations Found Education Materials Left Atrial Appendage Closure Device Implantation, Care [...] these instructions at home: Medicines ??? Take cqlb-sfj-xwpmyuk and prescription medicines only as told by [...] and water are not available, use hand squash centre manager. ? Change your dressing as told by [...] 0-1 drink a day for women. ? 0???2 drinks a day for men. ? Know how much alcohol is in your drink. In the [place] one drink equals one 12 oz bottle of beer (355 mL), one 5 oz glass of wine (148 mL), or one 1?? oz glass of hard liquor (44 mL). [...] provider. Document Revised: 04/05/2021 Document Reviewed: 04/05/2021 [employer] Patient Education ?? 2020 [employer] Groin Site Care Refer to this sheet [...] questions after your procedure. HOME CARE INSTRUCTIONS ??? You may shower 24 hours after the procedure. Remove the bandage (dressing ) and gently wash the site with plain soap and water. Gently pat the site dry. ??? Do not apply powder or lotion to the site. ??? Do not sit in a bathtub, swimming pool, or whirlpool for 5 to 7 days. ??? No bending, squatting, or lifting anything over 10 pounds (4.5 kg) as directed by your caregiver. ??? Inspect the site at least twice daily. ??? Do not drive home if you are discharged the same day of the procedure. Have someone else drive you. ??? You may drive 24 hours after the procedure unless otherwise instructed by your caregiver. What to expect: ??? Any bruising will usually fade within 1 to 2 weeks. ??? Blood that collects in the tissue (hematoma ) may be painful to the touch. It should usually decrease in size and tenderness within 1 to 2 weeks. SEEK IMMEDIATE MEDICAL CARE IF: ??? You have unusual pain at the groin site or down the affected leg. ??? You have redness, warmth, swelling, or pain at the groin site. ??? You have drainage (other than a small amount of blood on the dressing). ??? You have chills. ??? You have a fever or persistent symptoms for more than 72 hours. ??? You have a fever and your symptoms suddenly get worse. ??? Your leg becomes pale, cool, tingly, or numb. ??? You have heavy bleeding from the site. Hold pressure on the site. Document Released: 08/30/2011 Document Revised: 10/19/2012 Document Reviewed: 08/30/2011 ExitCare?? Patient Information ??2014 [employer]. General Anesthesia, Adult, Care After This sheet [...] activities are safe for you. ??? Take wtmr-jdh-fryiaqt and prescription medicines only as told by [...] 04/12/2021 Document Reviewed: 11/09/2020 Elsevier Patient Education ?? 2020 [employer] Emergency Awareness and Preventative Care STROKE is [...] Assistance with quitting is available by contacting 9-437-VUTSNOW. This is a free resource providing counseling, support, and referral. Or you may contact your personal physician. [employer] Suicide Prevention Lifeline: The National Suicide Prevention [...] This Visit (last charted value for your 08/16/2021 visit) Hematology 08/16/2021 8:30 AM WBC: 10.4 K/uL -- Normal range between ( 4.5 and 10.5 ) RBC: 4.77 Million/uL -- Normal range between ( 3.93 and 5.22 ) Hct: 40.2 % -- Normal range between ( 34.1 and 44.9 ) Hgb: 12.8 g/dL -- Normal range between ( 11.2 and 15.7 ) Platelet Count: 273 K/uL -- Normal range between ( 163 and 369 ) MCH: 26.8 pg -- Normal range between ( 25.6 and 32.2 ) MCHC: 31.8 Gram/dL -- Normal range between ( 32.2 and 36.5 ) MCV: 84.3 fL -- Normal range between ( 79.0 and 94.8 ) Slide Review: No Eos %: 2.5 % -- Normal range between ( 0.0 and 7.0 ) Childress #: 0.83 K/uL -- Normal range between ( 0.16 and 1.00 ) Eos #: 0.26 x10(3)/uL -- Normal range between ( 0.00 and 0.80 ) Childress %: 8.0 % -- Normal range between ( 3.0 and 9.0 ) Baso %: 0.7 % -- Normal range between ( 0.0 and 1.5 ) Baso #: 0.07 x10(3)/uL -- Normal range between ( 0.00 and 0.20 ) RDW: 16.5 % -- Normal range between ( 11.7 and 14.9 ) Neut %: 57.5 % -- Normal range between ( 34.0 and 71.0 ) Neut #: 6.00 K/uL -- Normal range between ( 1.56 and 6.13 ) Lymph %: 30.4 % -- Normal range between ( 19.3 and 53.1 ) Lymph #: 3.16 x10(3)/uL -- Normal range between ( 1.00 and 3.90 ) MPV: 11.3 fL -- Normal range between ( 9.4 and 12.4 ) IG#: 0.09 x10(3)/uL -- Normal range between ( 0.00 and 0.05 ) IG%: 0.90 % -- Normal range between ( 0.00 and 0.60 ) Blood Bank 08/16/2021 8:30 AM ABO/Rh Repeat: O POS 08/16/2021 8:29 AM ABO/Rh (ECHO): O POS Antibody Screen: Negative ABSC Crossmatch: Computer XM OK 08/16/2021 7:36 AM RBC Product Ready: RBC Ready # of Units:: 1 Unit General Chemistry 08/16/2021 8:30 AM Creatinine Level: 0.90 mg/dL -- Normal range between ( 0.55 and 1.02 ) Sodium Level: 141 mmol/L -- Normal range between ( 136 and 146 ) Potassium Level: 4.3 mmol/L -- Normal range between ( 3.5 and 5.1 ) Chloride Level: 108 mmol/L -- Normal range between ( 102 and 112 ) Carbon Dioxide Level: 26 mmol/L -- Normal range between ( 21 and 32 ) Anion Gap: 11 -- Normal range between ( 9 and 20 ) Bun/Creatinine: 16.7 -- Normal range between ( 8.0 and 20.0 ) Calcium Level: 9.3 mg/dL -- Normal range between ( 8.4 and 10.1 ) eGFR : >60 mL/min/1.73m2 eGFR NonAfrican: >60 mL/min/1.73m2 Glucose Level: 100 mg/dL -- Normal range between ( 74 and 106 ) Blood Urea Nitrogen: 15 mg/dL -- Normal range between ( 7 and 22 ) Echo 08/16/2021 11:43 AM EC Echo Complete: EC Echo Complete Vascular Ultrasound 08/16/2021 9:18 AM VL Vascular Access: VL Vascular Access Patient Name:KATHY CARTER I have received and understand this information and was given the opportunity to ask questions. Patient/Advanced Practice Provider Name: Patient/Advanced Practice Provider Signature: Relationship to Patient: Clinician/Hospital Advanced Practice Provider Signature: Date: documented in this encounter Plan of Treatment Upcoming Encounters Date Type Department Care Team (Late st Contact Info) Description 08/23/2025 12:45 PM EST Office Visit [facility] Electrophysiology [address] [place] [phone] Vik Corcoran MD [address] [place] [address] [address] [place] [address] documented as of this encounter Visit Diagnoses Not on filedocumented in this encounter Care Teams Ax Survey Worker Relationship Specialty Start Date End Date Alfred Cantu MD [address] [place] [address] [place] [address] PCP - General General Internal Medicine 08/29/22 Nivia Key MD [address] [place] [address] [address] Pickling Solution Maker Interventional Cardiology 08/29/22 Vik Corcoran MD [address] [place] [address] [address] [place] [address] Pickling Solution Maker Electrophysiology 05/19/24 documented as of this encounter
--- OUTSIDE RECORDS SUMMARY | 2025-02-18 10:43 | XMS_ITS | Encounter Summary ---
Author Organization [email or web address] ([place], [place], [place], [place]) Address [address] [place] [address] Care Team Providers Care Cissp Name Role Phone Alfred Cantu MD Primary Care Provider [phone] Lyndsey Key MD Unavailable [phone] Vik Corcoran MD Unavailable Encounter Details Date Type Department Care Team (Late st Contact Info) Description 08/16/2021 Transcribed Document [facility] [place] [address] ProviderRashard MD [address] [place] [id number] Social History Tobacco Use Types Packs/Day Years Used Date Smoking Tobacco: Never Assessed Comments Unknown Sex and Gender Information Value Date Recorded Sex Assigned at Not on file Legal Sex Female 1:15 PM CDT Gender Identity Not on file Sexual Orientation Not on file documented as of this encounter Miscellaneous Notes * Cerner Conversion Note - Historical ProviderMD - 08/16/2021 8:34 AM WELDER ASSISTANT Pre Procedure Adult Entered On: 08/16/2021 8:38 EST Performed On: 08/16/2021 8:34 EST by JENNIFER BILLINGS RN Height and Weight, Clinical Dosing Height Source : Stated Height Entry Format : [place] Height, Feet : 5 ft(Converted to: 152 cm, 60 Inch) Height, Inches : 0 Inch(Converted to: 0 ft 0 Inch, 0.00 cm) Clinical Height : 152.4 cm Weight Source : Standing scale Weight Entry Format : [place] Clinical Dosing Weight : 86.36 kg Weight, Pounds : 190 lb Body Surface Area (BSA) : 1.83 m2 Body Mass Index : 37.2 kg/m2 (HI) [place] Body Weight : 45 kg JENNIFER BILLINGS BRANDEE - 08/16/2021 8:34 EST Health Histories Smoking Status : Never (less than 100 in lifetime; none in last 30 days) Smokeless Tobacco Status : Never JENNIFER BILLINGS BRANDEE - 08/16/2021 8:34 EST Social History (As Of: 08/16/2021 08:38:42 EST) Tobacco: Smoking Status Never smoker. (Last [...] Patient Vaccinated for COVID-19 : Fully vaccinated JENNIFER BILLINGS BRANDEE - 08/16/2021 8:34 EST Infectious Disease Risk Screening Grid Cough < 2 wks of unknown origin : NO Cough > 2 weeks : NO Blood in Sputum : NO Fever or self-reported Fever : NO Rash of unknown origin : NO Headache : NO Stiff neck : NO Night Sweats : NO Unexplained Weight Loss : NO Diarrhea (3 episode per day) : NO JENNIFER BILLINGS BRANDEE - 08/16/2021 8:34 EST Patient Masked? : Yes Physical contact outside [place] in the last 30 days : No Hospitalized in Foreign Country : No Infectious Disease History : Chicken pox/Shingles, Measles, Mumps INF Disease TB Screening Calc : 0 INF Disease Recent Travel Calc : 0 JENNIFER BILLINGS BRANDEE - 08/16/2021 8:34 EST COVID19 PreProcedure Screening Is this an Emergent or Add on Procedure? : No Date PreProcedure COVID-19 test known? : No Has patient been isolated since the test : No Exposed to COVID19 symptoms since test? : No JENNIFER BILLINGS RN - 08/16/2021 8:34 EST Anesthesia/Transfusion History Family History of Anesthesia Reaction : No prior transfusion(s) Transfusion History : Prior anesthesia reaction Type of Anesthesia Reaction : Other: nausea and vomiting Family History of Anesthesia Reaction : None JENNIFER BILLINGS RN - 08/16/2021 8:34 EST Functional Assessment Living Situation : Home Patient Lives With : Spouse Current Home Treatments : CPAP, Nebulizer treatments JENNIFER BILLINGS RN - 08/16/2021 8:34 EST [place] Suicide Severity Rating Scale (C-SSRS) CSSRS Past Month Wish to be : No CSSRS Past Month Suicidal Thoughts : No CSSRS Lifetime Suicide Behavior : No Suicide Severity Rating Score : 0 Suicide Severity Rating : No Additional Care Required at this time JENNIFER BILLINGS RN - 08/16/2021 8:34 EST Psychosocial History Currently in Unsafe Situation : No JENNIFER BILLINGS RN - 08/16/2021 8:34 EST Advance Directive Patient has Advance Directive *Q : Yes, Advance Directive not with the patient Advance Directive Type : Living will Copy Advance Directive Verified/on Chart : No JENNIFER BILLINGS RN - 08/16/2021 8:34 EST Teaching/Learning Assessment Individuals Taught : Patient, Spouse Readiness to Learn : Cooperative Baseline Knowledge of Topic : Limited Readiness to Learn : Explanation, Printed materials Learning Style Preferences Patient : Verbal explanation Learning Style Preferences Family : Verbal explanation JENNIFER BILLINGS RN - 08/16/2021 8:34 EST Education Topics, Periop Preadmission Perioperative Education Grid Arrival Time/Place : Verbalizes understanding CAUTI : Verbalizes understanding Central Lines : Verbalizes understanding CHG Preoperative Bathing/Cloths : Verbalizes understanding Falls : Verbalizes understanding Incentive Spirometry : Verbalizes understanding Infection Control : Verbalizes understanding IV's : Verbalizes understanding NPO Status/Directions : Verbalizes understanding Pain Management : Verbalizes understanding Postoperative Care Preparations : Verbalizes understanding Preprocedure Preparations : Verbalizes understanding Preprocedure Tests/Labs : Verbalizes understanding Remove Body Piercings : Verbalizes understanding Responsible Adult : Verbalizes understanding SNE's : Verbalizes understanding Take/Hold Medications Pre-Procedure : Verbalizes understanding Other : Verbalizes understanding NIECE, JENNIFER, RN - 08/16/2021 8:34 EST General Info Arrived From : Home Mode of Arrival on Unit : Wheelchair Patient Arrival Date/Time : 08/16/2021 8:00 EST Legal Guardian : Spouse Want Family/Rep/Phys Notified of Admit : No Emergency Contact #1 : Braxton Jimenez Emergency Contact #1 Emergency Contact #1 Relationship : Emergency Contact #2 : na Emergency Contact #2 Phone Number : na Emergency Contact #2 Relationship : na Information Obtained From : Patient Primary Language : Telugu Preferred Communication Mode : Verbal Communication Barrier : None Underwriting Sales Representative Needed : No JENNIFER BILLINGS RN - 08/16/2021 8:34 EST Vital Measurements Temperature Source : Temporal artery scanning Temperature Mode : Fahrenheit Temperature, Fahrenheit : 97.5 Deg F Clinical Temperature, C : 36.4 Deg C Peripheral Pulse Rate : 77 bpm Systolic Blood Pressure : 167 mmHg (HI) Diastolic Blood Pressure : 87 mmHg Oxygen Saturation : 96 % Oxygen Therapy Mode : Room air JENNIFER BILLINGS RN - 08/16/2021 8:34 EST Sleep Apnea Risk Assmt BiPAP/CPAP Ordered for Home Use : Yes Hx of Obstructive Sleep Apnea Diagnosis : Yes BiPAP/CPAP Used at Home : Yes Age over 50 Years Old : Yes Gender Male : No JENNIFER BILLINGS RN - 08/16/2021 8:34 EST Arnoldo Scale Arnoldo Sensory Perception : No impairment Arnoldo Moisture : Rarely moist Arnoldo Activity : Walks occasionally Arnoldo Mobility : Slightly limited Arnoldo Nutrition : Adequate Arnoldo Friction and Shear : No apparent problem Arnoldo Score : 20 JENNIFER BILLINGS RN - 08/16/2021 8:34 EST Oxygen Therapy Oxygen Therapy Mode : Room air JENNIFER BILLINGS RN - 08/16/2021 8:34 EST Pain Assessment Pain Assessment : Initial assessment Pain Scale Used : 0-10 Scale JENNIFER BILLINGS RN - 08/16/2021 8:34 EST Fall Risk Scales ABCs Fall Injury Risk Identification : Coagulation ABC Fall Injury Risk : Moderate to high injury risk THOMAS Hx Falls Immediate/Within 3 Months : Yes Thomas Secondary Diagnosis : Yes THOMAS Use of Ambulatory Aid : Bed rest/Nurse assist THOMAS IV Therapy or IV Access : Yes Thomas Gait/Transferring : Weak Thomas Mental Status : Oriented to own ability Thomas Fall Risk Score : 70 THOMAS Fall Scale Risk Level : 46 or > High Risk [place] Fall Interventions : Adequate lighting, Bed in low position, Call device within reach, Frequent orientation to call device, Frequent orientation to surroundings, Non-slip footwear, Personal items within reach, Room free of clutter/spills, Wheels locked, Wires/Cords secured MANUELITO BRANDEE RODRIGUEZ - 08/16/2021 8:34 EST Valuables and Belongings Valuables and Belongings : Clothing, Personal items Clothing : Common streetwear Clothing Disposition : Bedside Personal Items : Purse Personal Items Disposition : With family BRETTTROYJENNIFER RN - 08/16/2021 8:34 EST Pain Scale Intensity : 0 MANUELITO BRANDEE RODRIGUEZ - 08/16/2021 8:34 EST Image 4 - Images currently included in the form version of this document have not been included in the text rendition version of the form. documented in this encounter Plan of Treatment Upcoming Encounters Date Type Department Care Team (Late st Contact Info) Description 08/23/2025 12:45 PM EST Office Visit [facility] Electrophysiology [address] [place] [phone] Vik Corcoran MD [address] [place] [address] [place] [address] documented as of this encounter Visit Diagnoses Not on filedocumented in this encounter Care Teams Cissp Relationship Specialty Start Date End Date Alfred Cantu MD [address] [place] [address] PCP - General General Internal Medicine 08/29/22 Lyndsey Key MD [address] [place] [address] [address] Head Irrigator Interventional Cardiology 08/29/22 Vik Corcoran MD [address] [facility] [place] [address] Head Irrigator Electrophysiology 05/19/24 documented as of this encounter
--- OUTSIDE RECORDS SUMMARY | 2025-02-18 10:43 | XMS_ITS | Encounter Summary ---
Author Organization [employer] ([place], [place], [place], [place]) Address [address] [place] [address] Care Team Providers Care Quality Intern Name Role Phone Alfred Cantu MD Primary Care Provider [phone] Lyndsey Key MD Unavailable [phone] Vik Corcoran MD Unavailable Encounter Details Date Type Department Care Team (Late st Contact Info) Description 10/25/2018 Transcribed Document [facility] [place] [facility] [place] [address] ProviderRashard MD [address] [place] [address] Social History Tobacco Use Types Packs/Day Years Used Date Smoking Tobacco: Never Assessed Comments Unknown Sex and Gender Information Value Date Recorded Sex Assigned at Not on file Legal Sex Female 1:15 PM CDT Gender Identity Not on file Sexual Orientation Not on file documented as of this encounter Miscellaneous Notes * Cerner Conversion Note - Rashard ProviderMD - 10/25/2018 8:05 AM CDT Evaluation, Physical Therapy Entered On: 10/25/2018 12:59 EDT Performed On: 10/25/2018 12:57 EDT by LAURITA DAVIDSON, PT General Information, [...] By: JOSE MEDRANO MD Active Diagnoses : No Qualifying Diagnoses Admission Date : 10/20/2018 23:00 Assisted by, PT : machine tech/aide Personal Devices : Personal Devices No Devices Recorded Assistive Devices : Assistive Devices No Devices Recorded Isolation Maintained : Droplet LAURITA DAVIDSON, PT - 10/25/2018 12:57 EDT General Status Patient Received Status : Up in chair Treatment Start Time : 10/25/2018 11:05 EDT Patient Left Status : Supine in bed, RN/PCT informed, All needs met and within reach RN/PCT Informed Comment : Naye Treatment End Time : 10/25/2018 11:22 EDT Treatment Time : 17 Minute(s) LAURITA DAVIDSON, PT - 10/25/2018 12:57 EDT Functional Mobility Mobility Grid Sit to Stand : Supervision/set-up Chair to Bed : Supervision/set-up Sit to Supine : Supervision/set-up LAURITA DAVIDSON, PT - 10/25/2018 12:57 EDT Gait Training/Assessment, PT Ambulatory Devices : None, Gait belt Gait Deviations : Yes Left Lower Gait Deviation : [place], decreased Right Lower Gait Deviation : [place], decreased LAURITA DAVIDSON, PT - 10/25/2018 13:05 EDT Gait Assistance Level : Supervision Walking Distance : 50 LAURITA DAVIDSON, PT - 10/25/2018 12:57 EDT Edu Topics Physical Therapy Education Grid Gait Training : Returns demonstration LAURITA DAVIDSON, PT - 10/25/2018 13:05 EDT Plan of Care, PT PT Tx Plan/Goals Established w Patient : Yes LAURITA DAVIDSON, PT - 10/25/2018 12:57 EDT Short Term Goals Ambulation STG Grid Goal #1 Device : Walker, front wheel Distance : 375' Assist : Supervision or set-up Date to Meet : 10/31/2018 EDT Goal Status : Progressing, continue Comment : 10/24/18 LAURITA DAVIDSON, PT - 10/25/2018 12:57 EDT Shelter Goals Ambulation LTG Grid Goal #1 Device : None Distance : 375' Assist : Supervision or set-up Date to Meet : 11/07/2018 EDT Goal Status : Progressing, continue Comment : Revised 10/23/18 LAURITA DAVIDSON, PT - 10/25/2018 12:57 EDT Treatment Note Subjective Comment : Patient and RN (Rosy ) agrees with POC. Patient's Response to Treatment : Slow cadance and verbal cues for normalized gait. Sling to (L) UE. Additional Objective Information : Supervison x 1 with gait belt ~50'. Supervison for bathroom transfers. Supervison to supine position with resp therapist with patient for treatment. Assessment : Achiving goals and patient plans to return home with C/P.T Plan for Treatment : Cont POC. LAURITA DAVIDSON, PT - 10/25/2018 13:05 EDT Pain Assessment Pain Scaled Used : 0-10 Pain scale Pain Score Pre-Intervention : 0 LAURITA DAVIDSON, PT - 10/25/2018 13:05 EDT Image 1 - Images currently included in the form version of this document have not been included in the text rendition version of the form. [facility] PT Charges PT Ther Activities Ea 15 Min : 1 LAURITA DAVIDSON, PT - 10/25/2018 12:57 EDT Electronically signed by [facility] Conversion [employer] Weaver Cerner at 11/28/2022 5:34 PM CDT documented in this encounter Plan of Treatment Upcoming Encounters Date Type Department Care Team (Late st Contact Info) Description 08/23/2025 12:45 PM EST Office Visit [facility] Electrophysiology [address] [place] [address] Vik Corcoran MD [address] [facility] [address] [place] [address] documented as of this encounter Visit Diagnoses Not on filedocumented in this encounter Care Teams Quality Intern Relationship Specialty Start Date End Date Alfred Cantu MD [address] [place] [address] PCP - General General Internal Medicine 08/29/22 Lyndsey Key MD [address] [facility] [address] [place] [address] Cdl Driver Interventional Cardiology 08/29/22 Vik Corcoran MD [address] [facility] [address] [place], [place] [id number] Cdl Driver Electrophysiology 05/19/24 documented as of this encounter
--- OUTSIDE RECORDS SUMMARY | 2025-02-18 10:43 | XMS_ITS | Data Portability ---
Author Organization [facility] Address [address] [facility] [address] [place] [address] Assessment Encounter Date Assessment Date Assessment LastModified [...] independently and worsening low back pain. PMH: Ahilda (ASA) PSHx: Pacemaker (not MRI compatible) 1. CT scan lumbar spine 06/30/2023 demonstrates severe L4-5 spinal canal stenosis with grade 1 L5-S1 anterolisthesis. Severe multilevel disc and facet arthritis 2. CT myel[facility] demonstrates moderate central stenosis L2-3. Moderate central [...] such as yoga or pilates on a manager terminal basis. I had an in-depth discussion with [...] including imaging, clinical notes, and relevant labs. [email or web address] Not available 10/14/2024 15:19:16 10/26/2024 10/26/2024 Kathy Jimenez is an 84-year-old woman with A-fib on aspirin 81 status post pacemaker placement and Watchman device who presents with multiple symptoms, the right flank pain is her worst symptom. I studied her CT myelogram from 06/24/2024, which shows diffuse degenerative changes with significant right L5/S1 lateral recess stenosis and possible bilateral L4/5 lateral recess stenosis. There is grade 1 L5/S1 spondylolisthesis . I discussed this with her, but she has no clear radicular symptoms. I discussed that surgery is unreliable for improving back pain and is not indicated in this case unless she were to developed bothersome radicular symptoms. She does appear to have a tender lump along her right flank that could possibly be a lipoma. Consider an ultrasound. I discussed that she should return if she develops significant radicular symptoms. [email or web address] Not available 10/26/2024 15:21:14 12/21/2024 12/21/2024 This is an 84-year-old female seen today [...] that is ongoing without notable improvement PMH: A.fib (ASA) PSHx: Pacemaker (not MRI compatible) 1. CT scan lumbar spine 06/30/2023 demonstrates severe L4-5 spinal canal stenosis with grade 1 L5-S1 anterolisthesis. Severe multilevel disc and facet arthritis 2. CT myelogram performed 06/24/2024 at [facility] demonstrates moderate central stenosis L2-3. Moderate central [...] lumbar spondylosis and stenosis. I recommend: 1. Today we discussed the option of spinal cord stimulator versus peripheral nerve stimulator. Patient and her are very hesitant to consider any implantable device. They would like to take literature and discussed this at home 2. We would likely need consultation with cardiology in conjunction with implantable devices given an MRI noncompatible pacemaker in the setting of A-fib. 3. I would likely want to update imaging including CT myelogram of the thoracic and lumbar spine prior to considering a treatment. I had an in-depth discussion with the [...] notes, and relevant labs. [email or web address] Not available 12/21/2024 15:51:11 01/06/2025 01/06/2025 This is an 84-year-old female [...] that is ongoing without notable improvement PMH: A.fib (ASA) PSHx: Pacemaker (not MRI compatible) 1. CT scan lumbar spine 06/30/2023 demonstrates severe L4-5 spinal canal stenosis with grade 1 L5-S1 anterolisthesis. Severe multilevel disc and facet arthritis 2. CT myelogram performed 06/24/2024 at [facility] demonstrates moderate central stenosis L2-3. Moderate central [...] Lab glycohemo globin, total, blood 2024 025 [facility], [address] [place], [address], 10:54:55 methicill in resistant staphyloc occus aureus, culture, nasal 2024 025 [facility], [address] [place], [address], 14:43:10 Referral psycholog ist referral - Evaluatio n for spinal cord stimulato r trial 2024 025 [facility], [address] [facility], [place], [address], 5 08:13:59 neurologi chhaya surgeon referral - consultat ion for possible laminecto my 2024 025 [email or web address] Not available 5 10:13:23 Procedures spinal cord stimulato r trial (PROC) 2024 025 darion [facility], [address] [facility], [place], [address], 14:10:09 Surgeries None recorded. Imaging CT, myelogram , lumbar spine 2024 025 [email or web address] [facility] Central Scheduling, [address], [place], [address], 5 08:03:25 CT, myelogram , thoracic spine 2024 025 [email or web address] [facility] Scheduling, [address], [place], [address], 5 08:03:25 Medication Orders mupirocin 2 % topical ointment 2024 025 [facility] [address] [place], [address], 5 15:45:19 Hibiclens 4 % topical liquid 2024 025 [facility] [address] [place], [address], 5 15:45:20 Patient TargetsNo targets recorded. Patient Instructions Encounter Date Encounter Id Patient Instructions Last Modified By Organization Details Last Modified Time 01/06/2025 [id number] spinal cord stimualtor trial information [email or web address] Not [...] Not available 02/02/2025 09:22:20 Reason for Referral Neurological Surgeon Referra l for Spinal stenosis of lumbar region consultation for possible laminectomy Referring Physician: Julisa Khan, Pain Management, Encounter Date: 10/14/2024 Psychologist Referral for Aiyana mbar radiculopathy Evaluation for spinal cord stimulator trial Evaluation for spinal cord stimulator trial Referring Physician: Julisa Khan Pain Management, Encounter Date: 01/06/2025 Results Created Date Observation Date Name Description Value Unit Range Abnormal Flag Note LastModifiedBy Organization Detail LastModifiedTime 01/07/20 25 01/07/2025 GLYCO HEMOG LOBIN A1C glyco HGB A1C 5.8 % 0.0-5. 6 high Not Available [facility] [address] [place], [address], 01/07/2025 10:54:55 01/07/2001/07/2025 GLYCO HEMOG LOBIN A1C estimated avg. glucose 120 mg/dL _(chhaya c) normal A1c value s betwe en 5.7% to 6.4% indic ate predi abete s. Resul ts 6.5% or great er is diagn ostic of diabe georges. Ameri can [facility]abe [facility] [employer] i[facility] n (diab etes. org) Not Available [facility] [address] [place], [address], 01/07/2025 10:54:55 01/07/20 25 01/08/2025 MRSA CULTU RE SCREE N MRSA culture screen NO MRSA ISOLAT ED Not Available [facility] [address] [place], [address], 01/08/2025 14:43:10 02/01/2006/24/2024 CT, myelo gram, lumba r spine No observ ation record ed. [email or web address] [facility] Scheduling [address], [place], [address], 02/07/2025 14:21:52 Result Notes None recorded. Problems No Known Problems Procedures Surgical History Date Name Laterality Status Provider Name and Address Organization Details Recorded Time 09/17/19 25 Lumbar Epidural Steroid Injection - Ean completed MURALI TRAMMELL MD [address] [place] [address], [phone], [facility] 09/17/2024 14:53:42 07/01/20 24 Sacroiliac Joint Injection - Ean completed MURALI TRAMMELL MD [address] [place] [address], [phone], [facility] 07/01/2024 12:32:17 02/17/20 24 Lumbar RFA Bilateral - Ean completed MURALI TRAMMELL MD [address] [place] [address] [place], [address], [facility] 02/17/2024 13:22:27 02/03/20 24 Lumbar MBB bilateral 2 level - Ean completed MURALI TRAMMELL MD [address] [place] [address], [address], [facility] 02/03/2024 16:09:45 01/26/20 24 Lumbar MBB bilateral 2 level - Ean completed MURALI TRAMMELL MD [address] [place] [address], [phone], [facility] 01/26/2024 14:50:15 08/11/19 19 procedure on heart completed [facility] 12/26/2023 10:35:46 cholecystectomy completed [facility] 12/26/2023 10:36:02 Appendectomy completed [facility] 12/26/2023 10:36:17 Imaging Results None recorded. Procedure Notes None recorded. Medical Equipment None Reported. Allergies Allergen ID Allergen Name Allergen Category Reaction Reaction Severity Criticality Documentation Date Start Date Code Code System Note Provider Name and Address Organization Details Recorded Time 167781 Substance with sulfonami de structure and antibacte rial mechanism of action (substanc e) medicatio n Not available Not available Not available 12/26/2023 20714 8003 SNOMED Graciela Clark [facility] 4 10:27:37 173301 latex environme nt,medica tion itching Not available Not available 06/28/2024 92114 91 RxNorm Burni ng and itchi ng Meena Jefferson [facility] 14:01:35 Medications Name Sig Start [...] and Address Organization Details Last Updated DateTime 5 152.4 cm 97.1 [degF] 96 % 96 % 77 /min 140/86 mm[Hg] [facility] 5 14:55:53 Date Recorded Body height Body mass index (BMI) Body weight Systolic And Diastolic Provider Name and Address Organization Details Last Updated DateTime 10/26/2024 152.4 cm 34 kg/m2 02393.07 g 132/82 mm[Hg] Naomy Ynes [facility] 10/26/2024 14:23:07 Date Recorded Body height Body mass index (BMI) Body weight Body temperature Heart rate Oxygen saturation Oxygen saturation in Arterial blood by Pulse oximetry Systolic And Diastolic Provider Name and Address Organization Details Last Updated DateTime 5 152.4 cm 34 kg/m2 45785.0 7 g 97.2 [degF] 68 /min 92 % 92 % 128/80 mm[Hg] Graciela Clark [facility] 5 14:13:43 Date Recorded Body height Body temperature Oxygen saturation Oxygen saturation in Arterial blood by Pulse oximetry Heart rate Systolic And Diastolic Provider Name and Address Organization Details Last Updated DateTime 5 152.4 cm 97 [degF] 95 % 95 % 62 /min 130/72 mm[Hg] [facility] 5 15:26:34 Social History Question Answer Notes LastModified by Organizat ion Details LastModified Time Tobacco Smoking Status Never Smoker Graciela Clark [facility] 12/26/2023 10:35:11 What Was The Date Of Your Most Recent Tobacco Screening? 01/06/2025 [email or web address] Information not available 01/06/2025 What Is Your Relationship Status? [email or web address] Information not available 12/26/2023 Has Tobacco Cessation Counseling Been Provided? No [email or web address] Information not available 12/26/2023 Sex: Unknown Functional Status Question Answer Note LastModified by Organizat ion Details LastModified Time Do you use any illicit or recreational drugs? No [email or web address] Information not available 12/26/2023 Do you or have you ever used any other forms of tobacco or nicotine? No [email or web address] Information not available 12/26/2023 What is your level of alcohol consumption? None [email or web address] Information not available 12/26/2023 Are you currently employed? No [email or web address] Information not available 12/26/2023 Mental Status None recorded. Family History Relationship Description Onset Age of this Age Resolved Age Notes LastModified by Organization Details LastModified Time Sister Family history of malignant neoplasm [email or web address] Not available 12/25 10:34:59 Medical History Condition Response Heart Problems Y Bleeding Disorder N Arthritis Y Hearing Loss Y Kidney Stones N Blood Transfusion N Blood Clot N Colon/Rectal Disorders N Cancer N Stroke N COPD N Asthma Y Blood Thinners N Sleep Apnea Y Thyroid Disorder N High Cholesterol Y Liver Disease N Heart Attack ([place]) Headaches N Hypertension Y Osteoporosis N Kidney Disease N Gynecological HistoryNo gynecological history recorded. Obstetrics History GPAL:G 0 P 0 0 0 0 Past Encounters Encounter ID Performer Location Encounter Start Date Encounter Closed Date Diagnosis/Indication Diagnosis SNOMED-CT Code Diagnosis ICD10 Code Diagnosis Note [id number] MURALI TRAMMELL MD [facility] [address] [place] [address] 12/26/2023 09:25:47 12/26/2023 13:50:15 Degeneration of lumbar intervertebral disc 94074488 M51.36 Lumbar spondylosis 06073 0009 M47.816 Spinal ryan nosis of lumbar region 88982513 M48.062 [id number] MURALI TRAMMELL MD [facility] PROF[facility] NAL [facility] [address] [place] [address] 1 01/26/2024 13:38:01 01/29/2024 15:21:55 Lumbar spondylosis 841736661 M47.816 [id number] MURALI TRAMMELL MD [facility] [address] [place] [address] 1 02/03/2024 14:46:21 02/06/2024 15:47:16 Lumbar spondylosis 417700631 M47.816 [id number] MURALI TRAMMELL MD [facility] N[facility] [address] [place] [address] 1 02/17/2024 12:44:27 02/17/2024 14:35:14 Lumbar spondylosis 670385078 M47.816 [id number] JULISA KHAN PA-C [facility] [address] [place] [address] 1 03/19/2024 13:44:00 03/19/2024 15:24:26 Lumbar spondylosis 237857911 M47.816 Degenerati on of lumbar intervertebral disc 56589926 M51.36 Spinal ryan nosis of lumbar region 55357644 M48.062 [id number] JULISA KHAN PA-C [facility] [address] [place] [address] 1 06/28/2024 13:45:12 06/28/2024 15:53:01 Spinal stenosis of lumbar region 59322908 M48.062 Lumbar spondylosis 93724 0009 M47.816 Degenerati on of lumbar intervertebral disc 10640345 M51.362 Low back pain 313899020 M54.51 Inflammati on of sacroiliac joint 01190038 M46.1 [id number] MURALI TRAMMELL MD [facility] [address] [place] [address] 1 07/01/2024 11:54:54 07/01/2024 13:39:21 Inflammation of sacroiliac joint 72993557 M46.1 [id number] MURALI TRAMMELL MD [facility] [address] [place] [address] 1 07/21/2024 13:44:07 07/22/2024 04:12:03 Spinal stenosis of lumbar region 85968211 M48.062 Lumbar spondylosis 61433 0009 M47.816 Degenerati on of lumbar intervertebral disc 11316753 M51.362 Low back pain 718386078 M54.51 [id number] JULISA KHAN PA-C [facility] [address] [place] [address] 1 10/14/2024 14:26:33 10/15/2024 05:36:51 Spinal stenosis of lumbar region 01005983 M48.062 Lumbar spondylosis 22528 0009 M47.816 Degenerati on of lumbar intervertebral disc 97512207 M51.362 Low back pain 758005227 M54.51 [id number] MURALI TRAMMELL MD [facility] [facility] PROF[facility] N[facility] [address] [facility] [place] [address] 1 09/17/2024 13:31:21 09/17/2024 15:04:27 Lumbar radiculopathy 390643945 M54.16 [id number] JOCELYN FUENTES MD [facility] [address] [facility] [place] [address] 10/26/2024 13:59:40 10/27/2024 05:18:25 Low back pain 448665690 M54.50 [id number] JULISA KHAN PA-C [facility] [address] [place] [address] 1 12/21/2024 13:58:45 12/21/2024 16:05:29 Spinal stenosis of lumbar region 89671649 M48.062 Lumbar spondylosis 19527 0009 M47.816 Degenerati on of lumbar intervertebral disc 97084478 M51.362 Low back pain 750116569 M54.51 [id number] JULISA KHAN PA-C [facility] [address] [place] [address] 01/06/2025 15:03:26 01/08/2025 04:11:56 Spinal stenosis of lumbar region 50344964 M48.062 Lumbar spondylosis 79251 0009 M47.816 Degenerati on of lumbar intervertebral disc 14644836 M51.362 Low back pain 365839088 M54.51 Displaceme nt of lumbar intervertebral disc 5037436392 M51.26 Lumbar radiculopathy 128 768921 M54.16 Lumbar post-laminectomy syndrome 570582601 M96.1 Health Concerns Section Related Observation LastModified by Organization Detai ls LastModified Time None Recorded Concern Status LastModified by Organization Details LastModified Time None Recorded Advance Directives Directive None Recorded Payers Insurance Date Sequence Insurance Name Policy Number Policy Fritz Covered Member ID Fritz Member ID Guarantor Name 02/05/2025 2 [employer] (MEDICARE SUPPLEMENT) Kathy Jimenez [id number] Kathy Crawfordr 01/06/2025 1 [place] Kathy Jimenez [id number] Kathy Crawfordr 02/04/2025 [facility] - PLAN F (MEDICARE SUPPLEMENT) Kathy Jimenez [id number] Kathy Jimenez Notes Date Note Type Note Provider Name a nd Address Organization Details Recorded Time 10/14/2024 text/html Injection follow upReported bypatient.Location :low back Most recent procedures:lumbar ROCK (LESI L3/4); date: (09/17/24) % of reliefpain relief 0% Duration of relief:ongoing Severity:improving ; current pain 8/10; average pain 8/10 Woundinjection site healed well; no fever; no bleeding JULISA KHAN PA-C [address] [place], [address], [facility] 10/14/2024 15:20:06 10/26/2024 text/html Kathy Jimenez is an 84-year-old woman with A-fib on aspirin 81 status post pacemaker placement and Watchman device who presents with multiple symptoms, the right flank pain is her worst symptom. She has had chronic diffuse back pain for several years. Most of her pain is along her right flank where she feels a bump. She occasionally has some pain in her lateral thighs and also has pain in both feet. Otherwise, no clear radicular symptoms. Her right flank pain is the worst symptom. The pain has been refractory to physical therapy, oral steroids, NSAIDs, muscle relaxers, and multiple injections including epidural steroid injections and bilateral SI injections. JOCELYN FUENTES MD [address] [place] [address], [address], [facility] 10/26/2024 15:21:54 12/21/2024 text/html Pain Management L-spine GISHReported bypatient.Location :bilateral [...] Surgery:none Previous Injections:ROCK (09/03); SI joint injection (Dandy Hips per Destin Keyes MD); helped a little Previous PT:Date completed: 2022 ([facility]); did not help Previous Rn Traveling:none Kathy Jimenez is a 84 yo female here today for dandy low back pain that is radiating down into dandy hips/buttocks, down all over legs to feet. Pt state pain is worse today than ever. JULISA KHAN PA-C [address] [place] [address], [phone], [facility] 12/21/2024 15:51:19 01/06/2025 text/html Pain Management L-spine GISHReported bypatient.Location [...] Surgery:none Previous Injections:ROCK (09/03); SI joint injection (Dandy Hips per Destin Keyes MD); helped a little Previous PT:Date completed: 2022 ([facility]); did not help Previous Rn Traveling:none Kathy Jimenez is a 84 yo female here today for dandy low back pain that is radiating down into dandy hips/buttocks, down all over legs to feet. Pt state pain is worse today than ever. JULISA KHAN PA-C [facility] [place], [address], [facility] 01/11/2025 16:01:00 OBGyn Episode No OBEpisode recorded.
--- OUTSIDE RECORDS SUMMARY | 2025-02-18 10:44 | XMS_ITS | Encounter Summary ---
Author Organization [employer] ([place], [place], [place], [place]) Address [address] [place] [address] Care Team Providers Care Manager Professional Development Name Role Phone Alfred Cantu MD Primary Care Provider Lyndsey Key MD Unavailable [phone] Vik Corcoran MD Unavailable Encounter Details Date Type Department Care Team (Late st Contact Info) Description 03/09/2019 Transcribed Document [facility] Pulm & Critical Care Medicine [address] [place] [address] [place] [phone] [place] [address] [place] [address] [address] [place], [place] [id number] Social History Tobacco Use Types Packs/Day Years Used Date Smoking Tobacco: Never Assessed Comments Unknown Sex and Gender Information Value Date Recorded Sex Assigned at Not on file Legal Sex Female 1:15 PM CDT Gender Identity Not on file Sexual Orientation Not on file documented as of this encounter Miscellaneous Notes * Cerner Conversion Note - Delmer Ro MD - 03/09/2019 8:49 PM EDT DATE OF STUDY: 03/08/2019 DEMOGRAPHIC DATA: Age: 78. Race: . Gender: Female. Height: 60 inches. Weight: 184 pounds. BMI: 36.1. PULMONARY FUNCTION TEST: Spirometry: FVC 1.46 L, 64% of predicted; FEV1 is 1.03 L, 61% of predicted; FEV1/FVC ratio 71%, 95% of predicted. LUNG VOLUMES BY NITROGEN METHOD: Total lung capacity 2.59 L, 65% of predicted; vital capacity 1.46 L, 64% of predicted; RV/TLC ratio 44%, 104% of predicted. DIFFUSION STUDY: DLCO of 8.6, 44% of predicted; DLCO adjusted for lung volumes 3.08, 91% of predicted. INTERPRETATION: Spirometry data is acceptable and reproducible for interpretation. Based on ATS criteria, spirometry show moderate obstruction to airflow. Bronchodilator response study was performed during spirometry. Lung volumes by nitrogen method show moderate restriction with significant air trapping. Diffusion study show moderate diffusion impairment for carbon monoxide. Please correlate clinically. Delmer Ro MD Dict: 03/09/2019 19:49:32 Trans: 03/10/2019 00:32:43 CC1: Delmer Ro MD documented in this encounter Plan of Treatment Upcoming Encounters Date Type Department Care Team (Late st Contact Info) Description 08/23/2025 12:45 PM EST Office Visit [facility] Electrophysiology [address] [place] [phone] Vik Corcoran MD [address] [place] [address] [address] [place] [address] documented as of this encounter Visit Diagnoses Not on filedocumented in this encounter Care Teams Manager Professional Development Relationship Specialty Start Date End Date Alfred Cantu MD [address] [place] [address] [place] [address] PCP - General General Internal Medicine 08/29/22 Lyndsey Key MD [address] [place] [address] [address] [place], [place] [id number] Assembly Line Supervisor Interventional Cardiology 08/29/22 Vik Corcoran MD [address] [facility] [place] [address] Assembly Line Supervisor Electrophysiology 05/19/24 documented as of this encounter
--- OUTSIDE RECORDS SUMMARY | 2025-02-18 10:44 | XMS_ITS | Continuity of Care Document ---
Author Organization [facility], PAIN MEDICINE [address] Address [address] [place] [address] Assessment Encounter Date Assessment Date Assessment LastModified by Organization Details LastModified Time 12/21/2024 12/21/2024 This is an 84-year-old female [...] CT myelogram performed 06/24/2024 at [facility] demonstrates moderate central stenosis L2-3. Moderate central [...] relevant labs. [email or web address] Not available 12/21/2024 15:51:11 Plan of Treatment Reminders Order Date Submit Date Provider Last Modified By Organization Details Last Modified Time Details Appointments None record ed. Lab None record ed. Referral None record ed. Procedures None record ed. Surgeries None record ed. Imaging None record ed. Medication Orders None record ed. Patient TargetsNo targets recorded. Patient InstructionsNo instructions recorded. Reason for Referral None Reported. Results Created Date Observation Date Name Description Value Unit Range Abnormal Flag Note LastModifiedBy Organization Detail LastModifiedTime 02/01/2006/24/2024 CT, myelo gram, lumba r spine No observ ation record ed. [email or web address] [facility] Scheduling 1 [facility] , [place], [address], 02/07/2025 14:21:52 Result Notes None recorded. Problems No Known Problems Procedures Surgical History Date Name Laterality Status Provider Name and Address Organization Details Recorded Time 09/17/19 25 Lumbar Epidural Steroid Injection - Ean completed MURALI TRAMMELL MD [address] [place], [address], [facility] 09/17/2024 14:53:42 07/01/20 24 Sacroiliac Joint Injection - [facility] completed MURALI TRAMMELL MD [address] [place], [address], [facility] 07/01/2024 12:32:17 07/09/20 24 Lumbar RFA Bilateral - Ean completed MURALI TRAMMELL MD [address] [place], [address], [facility] 02/17/2024 13:22:27 02/03/20 24 Lumbar MBB bilateral 2 level - Ean completed MURALI TRAMMELL MD [address] [place], [address], [facility] 02/03/2024 16:09:45 01/26/20 24 Lumbar MBB bilateral 2 level - Ean completed MURALI TRAMMELL MD [address] [place], [address], [facility] 01/26/2024 14:50:15 08/11/19 19 procedure on heart completed Graciela [facility] 12/26/2023 10:35:46 cholecystectomy completed [facility] 12/26/2023 10:36:02 Appendectomy completed [facility] 12/26/2023 10:36:17 Imaging Results None recorded. Procedure Notes None recorded. Medical Equipment None Reported. Allergies Allergen ID Allergen Name Allergen Category Reaction Reaction Severity Criticality Documentation Date Start Date Code Code System Note Provider Name and Address Organization Details Recorded Time 479234 Substance with sulfonami de structure and antibacte rial mechanism of action (substanc e) medicatio n Not available Not available Not available 12/26/2023 97087 8003 SNOMED [facility] 4 10:27:37 700115 latex environme nt,medica tion itching Not available Not available 06/28/2024 46156 91 RxNorm Burni ng and itchi ng Meena Jefferson [facility] 14:01:35 Medications Name Sig Start [...] Available Vitals Date Recorded Body height Body mass index (BMI) Body weight Body temperature Heart rate Oxygen saturation Oxygen saturation in Arterial blood by Pulse oximetry Systolic And Diastolic Provider Name and Address Organization Details Last Updated DateTime 5 152.4 cm 34 kg/m2 12238.0 7 g 97.2 [degF] 68 /min 92 % 92 % 128/80 mm[Hg] Graciela [facility] 14:13:43 Social History Question Answer Notes LastModified by Organizat ion Details LastModified Time Tobacco Smoking Status Never Smoker Graciela Clark [facility] 12/26/2023 10:35:11 What Was The Date Of Your Most Recent Tobacco Screening? 01/06/2025 [email or web address] Information not available 01/06/2025 What Is Your Relationship Status? Information not available 12/26/2023 Has Tobacco Cessation Counseling Been Provided? No [email or web address] Information not available 12/26/2023 Sex: Unknown Functional Status Question Answer Note LastModified by Organizat ion Details LastModified Time Do you use any illicit or recreational drugs? No [email or web address] Information not available 12/26/2023 Do you or have you ever used any other forms of tobacco or nicotine? No [email or web address] Information not available 12/26/2023 What is your level of alcohol consumption? None [email or web address] Information not available 12/26/2023 Are you currently employed? No [email or web address] Information not available 12/26/2023 Mental Status None recorded. Family History Relationship Description Onset Age of this Age Resolved Age Notes LastModified by Organization Details LastModified Time Sister Family history of malignant neoplasm [email or web address] Not available 12/25 10:34:59 Medical History Condition Response Heart Problems Y Kidney Stones N Blood Transfusion N Colon/Rectal Disorders N COPD N Heart Attack ([place]) Bleeding Disorder N Hearing Loss Y Arthritis Y Blood Clot N Cancer N Stroke N Asthma Y Blood Thinners N Sleep Apnea Y High Cholesterol Y Thyroid Disorder N Liver Disease N Headaches N Hypertension Y Osteoporosis N Kidney Disease N Gynecological HistoryNo gynecological history recorded. Obstetrics History GPAL:G 0 P 0 0 0 0 Past Encounters Encounter ID Performer Location Encounter Start Date Encounter Closed Date Diagnosis/Indication Diagnosis SNOMED-CT Code Diagnosis ICD10 Code Diagnosis Note [id number] DANDRE KHAN PA-C PAIN MEDICINE [address] [place] [address] 12/21/2024 13:58:45 12/21/2024 16:05:29 Spinal stenosis of lumbar region 87909974 M48.062 Lumbar spondylosis 95104 0009 M47.816 Degenerati on of lumbar intervertebral disc 64032839 M51.362 Low back pain 648948151 M54.51 Health Concerns Section Related Observation LastModified by Organization Detai ls LastModified Time None Recorded Concern Status LastModified by Organization Details LastModified Time None Recorded Payers Encounter Date Sequence Insurance Name Policy Number Policy Fritz Covered Member ID Fritz Member ID Guarantor Name 12/21/2024 1 [place] Kathy Jimenez [id number] Kathy Jimenez 12/21/2024 2 [employer] (MEDICARE SUPPLEMENT) Kathy Jimenez [id number] Kathy Jimenez Notes Date Note Type Note Provider Name and Address Organization Details Recorded Time 12/21/2024 text/html Pain Management L-spine GISHReported bypatient.Location [...] helped a little Previous PT:Date completed: 2022 ([facility]); did not help Previous Digital Marketing Coordinator:none Kathy Jimenez is a 84 yo female here today for salvador low back pain that is radiating down into salvador hips/buttocks, down all over legs to feet. Pt state pain is worse today than ever. DANDRE KHAN PA-C [address] [place], [address], [facility] 12/21/2024 15:51:19 OBGyn Episode No OBEpisode recorded.
--- OUTSIDE RECORDS SUMMARY | 2025-02-18 10:44 | XMS_ITS | Encounter Summary ---
Author Organization [employer] ([place], [place], [place], [place]) Address [address] [place] [address] Care Team Providers Care Medical Imaging Technologist Name Role Phone Alfred Cantu MD Primary Care Provider [phone] Lyndsey Key MD Unavailable [phone] Vik Corcoran MD Unavailable Encounter Details Date Type Department Care Team (Late st Contact Info) Description 10/23/2018 Transcribed Document [facility] [place] [facility] [place] [address] ProviderRashard MD [address] [place] [address] Social History Tobacco Use Types Packs/Day Years Used Date Smoking Tobacco: Never Assessed Comments Unknown Sex and Gender Information Value Date Recorded Sex Assigned at Not on file Legal Sex Female 1:15 PM CDT Gender Identity Not on file Sexual Orientation Not on file documented as of this encounter Miscellaneous Notes * Cerner Conversion Note - Rashard ProviderMD - 10/23/2018 9:39 AM CDT Patient: KATHY CARTER Age: 78 Years Sex: Female : 1940 Subjective Chief Complaint: Still some cough Improved SOB No CP or palpitations Physical Exam (1, 6, 12) Gen: [NAD]. Eye: [PERRL, normal conjunctiva]. HENT: [Normocephalic, normal hearing, moist oral mucosa.]. Neck: [Supple, NT, no carotid bruits, no JVD.]. Lungs: [Decreased BS at bases, + expiratory wheezing]. Heart: [RRR, 3/6 HSM, +S4, trace edema]. Abd: [Soft, NT/ND, + BS]. Skin: [Warm, dry, pink, no rashes]. 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 - Repeat Limited Echo-LVEF=15-20% [facility] 06/2017: Normal coronaries. - LBBB; QRS 160 ms VHD - Severe Mitral Regurgitation Community acquired PNA - Continue Zosyn, Azithromycin Hypokalemia Replace K PLAN: 10/23/18 Successful BIV-ICD implant today Stat CXR and PA and lateral CXR in am One dose of vanco in am Restart Lasix at 40 mg IV BID joão am for another day then switch to PO Left arm sling Device check in am 10/22/18 Improving CHF - Continue Lasix 40 mg IV TID for another day - Replace K - Patient is scheduled for BIV-ICD implant on [...] 1200 mg= 2 Tab, Oral, BID nystatin, 7372179 Units= 10 mL, Swish and Swallow , [...] Zithromax, 500 mg= 2 Tab, Oral, Daily Home Advair Diskus 250 mcg-50 mcg inhalation [...] 1 Tab, Oral, Daily Lab Results OCT 23 03:05 L 125 L 88 21 / H 147 4.4 28 0.90 \ OCT 21 05:27 \ 11.7 / H 14.6 225 / 36.4 \ Diagnostic Results EKG Tele: NSR 78 BPM. Electronically signed by Interface, [facility] Conversion Bone Puller Cerner at 11/28/2022 5:28 PM CDT documented in this encounter Plan of Treatment Upcoming Encounters Date Type Department Care Team (Late st Contact Info) Description 08/23/2025 12:45 PM EST Office Visit [facility] Electrophysiology [address] [place] [address] Vik Corcoran MD [address] [place] [address] [address] [place] [address] documented as of this encounter Visit Diagnoses Not on filedocumented in this encounter Care Teams Medical Imaging Technologist Relationship Specialty Start Date End Date Alfred Cantu MD [address] [place] [address] PCP - General General Internal Medicine 08/29/22 Lyndsey Key MD [address] [place] [address] [address] [place] [address] Ribbon Sweatband Operator Interventional Cardiology 08/29/22 Vik Corcoran MD [address] [place] [address] [id number] Ribbon Sweatband Operator Electrophysiology 05/19/24 documented as of this encounter
--- OUTSIDE RECORDS SUMMARY | 2025-02-18 10:44 | XMS_ITS | Encounter Summary ---
Author Organization [employer] ([place], [place], [place], [place]) Address [address] [place] [address] Care Team Providers Care Freelance Court Reporter Name Role Phone Alfred Cantu MD Primary Care Provider Lyndsey Key MD Unavailable [phone] Vik Corcoran MD Unavailable Encounter Details Date Type Department Care Team (Late st Contact Info) Description 10/23/2018 Transcribed Document [facility] [place] Family Medicine [address] [place] [address] ProviderRashard MD [address] [place] [address] Social History Tobacco Use Types Packs/Day Years Used Date Smoking Tobacco: Never Assessed Comments Unknown Sex and Gender Information Value Date Recorded Sex Assigned at Not on file Legal Sex Female 1:15 PM CDT Gender Identity Not on file Sexual Orientation Not on file documented as of this encounter Miscellaneous Notes * Cerner Conversion Note - Rashard ProviderMD - 10/23/2018 10:45 AM CDT Attempt to Treat, OT Entered On: 10/23/2018 11:33 EDT Performed On: 10/23/2018 10:45 EDT by IVET BECKHAM COTA Attempt to Treat Unable to Treat Due To : Patient on hold Inability to Treat Comment : Per BRANDEE Shah client is possible pacemaker placement today. Will require a re-order. IVET BECKHAM COTA - 10/23/2018 11:32 EDT documented in this encounter Plan of Treatment Upcoming Encounters Date Type Department Care Team (Late st Contact Info) Description 08/23/2025 12:45 PM EST Office Visit [facility] Electrophysiology [address] [place] [address] [place] [address] [place] [address] [address] [place] [address] documented as of this encounter Visit Diagnoses Not on filedocumented in this encounter Care Teams Freelance Court Reporter Relationship Specialty Start Date End Date Alfred Cantu MD [address] [place] [address] PCP - General General Internal Medicine 08/29/22 [place] [address] [place] [address] [address] [place] [address] Director Retirement Interventional Cardiology 08/29/22 Vik Corcoran MD [address] [place] [address] [address] [place], [place] [id number] Director Retirement Electrophysiology 05/19/24 documented as of this encounter
--- OUTSIDE RECORDS SUMMARY | 2025-02-18 10:44 | XMS_ITS | Encounter Summary ---
Author Organization [employer] ([place], [place], [place], [place]) Address [address] [place] [address] Care Team Providers Care Train Operations Manager Name Role Phone Alfred Castillo MD Primary Care Provider [phone] Lyndsey Key MD Unavailable [phone] Vik Corcoran MD Unavailable Encounter Details Date Type Department Care Team (Late st Contact Info) Description 11/02/2018 Transcribed Document [facility] [place] [facility] [place] [address] ProviderRashard MD [address] [place] [address] Social History Tobacco Use Types Packs/Day Years Used Date Smoking Tobacco: Never Assessed Comments Unknown Sex and Gender Information Value Date Recorded Sex Assigned at Not on file Legal Sex Female 1:15 PM CDT Gender Identity Not on file Sexual Orientation Not on file documented as of this encounter Miscellaneous Notes * Cerner Conversion Note - Rashard ProviderMD - 11/02/2018 1:11 PM CDT [address] , [place] [address] Patient Copy Patient Information: Name: KATHY JIMENEZ Current Date: 11/02/2018 13:11:51 : 1940 Patient Address: [address] [place] [address] [place] [address] Patient Attending Physician: CARMELLA MEI MD-INT Primary Care Provider: HARPREETY, NOT LISTED Primary Care Provider Phone: Discharge Diagnosis: Weight on Admission: 194 lb, 1 oz Weight at Discharge: 186 lb, 3 oz Comment: Follow-up Instructions: With: Address: When: CLARE LIVINGSTON [address] [facility], [address] [place] [address] Business (1) Within As needed Comments: Please call to make a follow-up appointment IF you are unable to get in with Dr. Castillo within 1 week. With: Address: When: ALFRED CASTILLO [address] [facility] [address], [address] [place] [address] Business (1) Within 1 week Comments: The office is closed today until 2:00 PM this Friday. Please call to make a 1 week follow-up appointment and discuss 3-[address] scan to follow-up regarding pulmonary nodules. Also discuss antibiotic therapy. With: Address: When: KASH BUTTS [address] [facility], [address] [place] [address] Business (1) Within 2 to 4 weeks Comments: Bring Ins Card, Photo ID, Ins Co-pay Bring discharge instructions with you Call for follow up appointment Return with blood work With: Address: When: NAZANIN NAVA [address] [facility] [place], [place] [id number] Business (1) 9:00 AM Comments: You will [...] the dressing Medical Equipment for Home Use: [facility] for bedside commode and nebulizer [phone] Home Health Services: [facility] [phone] Immunizations Documented During Stay: No Immunizations Found [...] Discharge Instructions (if any): Final Medication List: [facility], [place] [address], [phone] amiodarone (amiodarone 200 mg oral tablet) 2 [...] Follow these instructions at home: Medicines??? Take ythq-kjr-iscvaip and prescription medicines only as told by [...] and water are not available, use hand rod finisher. ? Change your dressing as told by [...] radio towers. ??? Do notuse amateur ( YouCastr ) radio equipment or electric ( arc [...] Revised: 01/02/2017 Document Reviewed: 04/21/2016 ? 2017 [employer] Incentive Spirometer An incentive spirometer is a [...] 12/08/2007 Document Revised: 04/21/2017 Document Reviewed: 03/06/2015 [employer] Interactive Patient Education ? 2017 [employer]. Smoking Hazards Smoking cigarettes is extremely [...] contain harmful chemicals. FOR MORE INFORMATION ??? [place] Lung Association: www.lung.org ??? [place] Cancer Society: www.cancer.org This information is not intended to replace advice given to you by your health care provider. Make sure you discuss any questions you have with your health care provider. Document Released: 09/04/2005 Document Revised: 11/18/2016 Document Reviewed: 01/17/2014 [employer]ell[employer]oh Interactive Patient Education ? 2017 [employer]. Heart-Healthy Eating Plan Many factors influence your [...] foods can I eat? Grains Breads, including Cook Islander, white, serenity, wheat, raisin, rye, oatmeal, and Pakistani. Tortillas that are neither fried nor made with lard or trans fat. Low-fat rolls, including hotdog and hamburger buns and Maori muffins. Biscuits. Muffins. Waffles. Pancakes. Light popcorn. Whole-grain cereals. Flatbread. [place] toast. Pretzels. Breadsticks. Rusks. Low-fat snacks and [...] cheese. Whole milk cheeses, including blue (henry), [place] Gary, Brie, Hayes, Cymro, Havarti, Congolese, cheddar, Camembert, and [place]. Whole or 2% milk that is liquid, [...] that has suet, meat fat, or shortening. [place] butter, hydrogenated oils, palm oil, coconut oil, [...] 05/06/2009 Document Revised: 02/14/2017 Document Reviewed: 01/19/2015 [employer] Interactive Patient Education ? 2017 [employer] Inc. How to Take a Pulse Your [...] 02/01/2004 Document Revised: 02/14/2017 Document Reviewed: 12/31/2016 [employer] Interactive Patient Education ? 2017 [employer]. How to Take Your Blood Pressure [...] 09/22/2014 Elsevier Interactive Patient Education ? 2017 [employer]. Cardiomyopathy, Adult Cardiomyopathy is a long-term [...] Other treatments may include cardiac resynchronization therapy (AUTO DETAILER) or a left ventricular assist device (LVAD). [...] to manage stress. General instructions ??? Take scnf-ons-ipmdlma and prescription medicines only as told by [...] 10/10/2005 Document Revised: 03/25/2017 Document Reviewed: 01/27/2017 [employer]ell[employer]oh Interactive Patient Education ? 2017 [employer]. Medication Leaflets: carvedilol (PRABHJOT ve dil ole) Germania, Germania [...] may report side effects to FDA at 6-871-UFK-7868. What other drugs will affect carvedilol? Other drugs may interact with carvedilol, including prescription and pcfn-nna-cnnajtn medicines, vitamins, and herbal products. Tell each [...] to ensure that the information provided by [employer]. ('[employer]') is accurate, up-to-date, and complete, but no guarantee is made to that effect. Drug information contained herein may be time sensitive. [employer] information has been compiled for use by healthcare practitioners and consumers in the [place] and therefore [employer] does not warrant that uses outside of the [place] are appropriate, unless specifically indicated otherwise. [employer]'s drug information does not endorse drugs, diagnose patients or recommend therapy. [employer] drug information is an informational resource designed [...] effective or appropriate for any given patient. [employer] does not assume any responsibility for any aspect of healthcare administered with the aid of information [employer] provides. The information contained herein is not intended to cover all possible uses, directions, precautions, warnings, drug interactions, allergic reactions, or adverse effects. If you have questions about the drugs you are taking, check with your doctor, nurse or pharmacist. Copyright 4161-9693 [employer]. Version: 15.. Revision Date: 08/30/2013. albuterol and ipratropium (inhalation) (al FERNANDO ter ol and LIZA crum) Combivent Respimat, DuoNeb [...] may report side effects to FDA at 7-952-LTV-2765. What other drugs will affect albuterol and ipratropium inhalation? Tell your doctor about all your current medicines and any you start or stop using, especially: ? a diuretic or 'water pill'; ?? heart or blood pressure medicine; ?? other beta-blockers; or ?? an antidepressant. This list is not complete. Other drugs may interact with albuterol and ipratropium, including prescription and gvrg-tgy-gpcztxv medicines, vitamins, and herbal products. Not all [...] to ensure that the information provided by [employer]. ('[employer]') is accurate, up-to-date, and complete, but no guarantee is made to that effect. Drug information contained herein may be time sensitive. [employer] information has been compiled for use by healthcare practitioners and consumers in the [place] and therefore [employer] does not warrant that uses outside of the [place] are appropriate, unless specifically indicated otherwise. [employer]'s drug information does not endorse drugs, diagnose patients or recommend therapy. [employer] drug information is an informational resource designed [...] effective or appropriate for any given patient. [employer] does not assume any responsibility for any aspect of healthcare administered with the aid of information [employer] provides. The information contained herein is not intended to cover all possible uses, directions, precautions, warnings, drug interactions, allergic reactions, or adverse effects. If you have questions about the drugs you are taking, check with your doctor, nurse or pharmacist. Copyright 7885-8118 [employer]. Version: 7.01. Revision Date: 04/04/2017. guaifenesin (gwye [...] Office Visit [facility] Electrophysiology [address] [place] [address] Vik Corcoran MD [address] [facility] [address] [place] [address] documented as of this encounter Visit Diagnoses Not on filedocumented in this encounter Care Teams Train Operations Manager Relationship Specialty Start Date End Date Alfred Castillo MD [address] [place] [address] PCP - General General Internal Medicine 08/29/22 [place] [address] [place] [address] [id number] Head Trimmer Interventional Cardiology 08/29/22 Vik Corcoran MD [address] [place] [address] [id number] Head Trimmer Electrophysiology 05/19/24 documented as of this encounter
--- OUTSIDE RECORDS SUMMARY | 2025-02-18 10:44 | XMS_ITS | Encounter Summary ---
Author Organization [employer] ([place], [place], [place], [place]) Address [address] [place] [address] Care Team Providers Care Plate Developer Name Role Phone Alfred Cantu MD Primary Care Provider [phone] Lyndsey Key MD Unavailable [phone] Vik Corcoran MD Unavailable Encounter Details Date Type Department Care Team (Late st Contact Info) Description 11/02/2018 Transcribed Document [facility] [place] [facility] [place] [address] ProviderRashard MD [address] [place] [address] Social History Tobacco Use Types Packs/Day Years Used Date Smoking Tobacco: Never Assessed Comments Unknown Sex and Gender Information Value Date Recorded Sex Assigned at Not on file Legal Sex Female 1:15 PM CDT Gender Identity Not on file Sexual Orientation Not on file documented as of this encounter Miscellaneous Notes * Cerner Conversion Note - Rashard ProviderMD - 11/02/2018 12:47 PM CDT [address] , [place] [address] Patient Copy Patient Information: Name: KATHY CARTER Current Date: 11/02/2018 12:47:40 : 1940 Patient Address: [address] [place], [place] [address]J[place]AN[place] [address] Patient Attending Physician: CARMELLA MEI MD-INT Primary Care Provider: ZAY, NOT LISTED Primary Care Provider Phone: Discharge Diagnosis: Weight on Admission: 194 lb, 1 oz Weight at Discharge: 186 lb, 3 oz Comment: Follow-up Instructions: With: Address: When: KASH BUTTS [address] [place] [address], [address] [place] [address] Business (1) Within 2 to [...] assistance finding a family MD please call [phone]. With: Address: When: NAZANIN NAVA [address] [place] [address]., [address] [place] [id number] [facility] (1) 9:00 AM Comments: You will [...] the dressing Medical Equipment for Home Use: [facility] for bedside commode and nebulizer [phone] Home Health Services: [facility] [phone] Immunizations Documented During Stay: No Immunizations Found [...] Discharge Instructions (if any): Final Medication List: [facility], [place] [address], [phone] amiodarone (amiodarone 200 mg oral tablet) 2 [...] Follow these instructions at home: Medicines??? Take ogmb-mqg-mjfdteb and prescription medicines only as told by [...] and water are not available, use hand eeg technician. ? Change your dressing as told [...] radio towers. ??? Do notuse amateur ( Bokee ) radio equipment or electric ( arc [...] 12/08/2007 Document Revised: 04/21/2017 Document Reviewed: 03/06/2015 [employer] Interactive Patient Education ? 2017 whoplusyou. Smoking Hazards Smoking cigarettes is extremely bad [...] contain harmful chemicals. FOR MORE INFORMATION ??? [place] Lung Association: www.lung.org ??? [place] Cancer Society: www.cancer.org This information is not intended to replace advice given to you by your health care provider. Make sure you discuss any questions you have with your health care provider. Document Released: 09/04/2005 Document Revised: 11/18/2016 Document Reviewed: 01/17/2014 [employer] Spine Interactive Patient Education ? 2017 [employer]. Heart-Healthy Eating Plan Many factors influence [...] foods can I eat? Grains Breads, including Yoruba, white, serenity, wheat, raisin, rye, oatmeal, and Swedish. Tortillas that are neither fried nor made with lard or trans fat. Low-fat rolls, including hotdog and hamburger buns and Honduran muffins. Biscuits. Muffins. Waffles. Pancakes. Light popcorn. Whole-grain cereals. Flatbread. Cavalier toast. Pretzels. Breadsticks. Rusks. Low-fat snacks and [...] cheese. Whole milk cheeses, including blue (henry), Leon Gary, Brie, Hayes, Polish, Havarti, Bolivian, cheddar, Camembert, and [place]. Whole or 2% milk that is liquid, [...] that has suet, meat fat, or shortening. [place] butter, hydrogenated oils, palm oil, coconut oil, [...] 05/06/2009 Document Revised: 02/14/2017 Document Reviewed: 01/19/2015 [employer] Interactive Patient Education ? 2017 [employer]. How to Take a Pulse Your [...] 02/01/2004 Document Revised: 02/14/2017 Document Reviewed: 12/31/2016 [employer] Interactive Patient Education ? 2017 [employer]. How to Take Your Blood Pressure [...] 07/10/2009 Document Revised: 08/18/2015 Document Reviewed: 09/22/2014 [employer] Interactive Patient Education ? 2017 [employer]. Cardiomyopathy, Adult Cardiomyopathy is a long-term [...] Other treatments may include cardiac resynchronization therapy (CAN REFORMING MACHINE OPERATOR) or a left ventricular assist device (LVAD). [...] to manage stress. General instructions ??? Take hnds-yxt-oyyajqd and prescription medicines only as told by [...] 10/10/2005 Document Revised: 03/25/2017 Document Reviewed: 01/27/2017 ElseMinimus Spine Interactive Patient Education ? 2017 [employer]. Medication Leaflets: carvedilol (PRABHJOT ve dil ole) Coreg, Coreg [...] may report side effects to FDA at 5-619-WUL-2689. What other drugs will affect carvedilol? Other drugs may interact with carvedilol, including prescription and bdcy-mct-hykhbff medicines, vitamins, and herbal products. Tell each [...] to ensure that the information provided by [employer] ('Multum') is accurate, up-to-date, and complete, but no guarantee is made to that effect. Drug information contained herein may be time sensitive. ScienceLogic information has been compiled for use by healthcare practitioners and consumers in the [place] and therefore ScienceLogic does not warrant that uses outside of the [place] are appropriate, unless specifically indicated otherwise. ServerPilots drug information does not endorse drugs, diagnose patients or recommend therapy. ServerPilots drug information is an informational resource designed [...] effective or appropriate for any given patient. [facility] does not assume any responsibility for any aspect of healthcare administered with the aid of information ScienceLogic provides. The information contained herein is not intended to cover all possible uses, directions, precautions, warnings, drug interactions, allergic reactions, or adverse effects. If you have questions about the drugs you are taking, check with your doctor, nurse or pharmacist. Copyright 8364-5909 [facility] CellPhire. Version: 15.. Revision Date: 08/30/2013. albuterol and [...] may report side effects to FDA at 4-547-NQR-7568. What other drugs will affect albuterol and ipratropium inhalation? Tell your doctor about all your current medicines and any you start or stop using, especially: ? a diuretic or 'water pill'; ?? heart or blood pressure medicine; ?? other beta-blockers; or ?? an antidepressant. This list is not complete. Other drugs may interact with albuterol and ipratropium, including prescription and wbkr-tyf-avuvirz medicines, vitamins, and herbal products. Not all [...] to ensure that the information provided by [employer] ('Multum') is accurate, up-to-date, and complete, but no guarantee is made to that effect. Drug information contained herein may be time sensitive. ScienceLogic information has been compiled for use by healthcare practitioners and consumers in the [place] and therefore ScienceLogic does not warrant that uses outside of the [place] are appropriate, unless specifically indicated otherwise. [employer]'s drug information does not endorse drugs, diagnose patients or recommend therapy. SiminarsCompufirsts drug information is an informational resource designed [...] effective or appropriate for any given patient. [facility] does not assume any responsibility for any aspect of healthcare administered with the aid of information ScienceLogic provides. The information contained herein is not intended to cover all possible uses, directions, precautions, warnings, drug interactions, allergic reactions, or adverse effects. If you have questions about the drugs you are taking, check with your doctor, nurse or pharmacist. Copyright 8719-8045 [employer] Version: 7.01. Revision Date: 04/04/2017. guaifenesin (gwye [...] call the Poison Help line at . What should I avoid while taking guaifenesin? Electronically signed by Israel Walls Conversion Customer Operations Representative Cerner at 11/28/2022 5:41 PM CDT documented in this encounter Plan of Treatment Upcoming Encounters Date Type Department Care Team (Late st Contact Info) Description 08/23/2025 12:45 PM EST Office Visit [facility] Electrophysiology [address] [place] [address] Vik Corcoran MD [address] [facility] [address] [place] [address] documented as of this encounter Visit Diagnoses Not on filedocumented in this encounter Care Teams Plate Developer Relationship Specialty Start Date End Date Alfred Cantu MD [address] [place] [address] [place] [address] PCP - General General Internal Medicine 08/29/22 Lyndsey Key MD [address] [facility] [address] [address] Surface Supply Breathing Apparatus Interventional Cardiology 08/29/22 [place] [address] [place] [address] [address] Surface Supply Breathing Apparatus Electrophysiology 05/19/24 documented as of this encounter
--- OUTSIDE RECORDS SUMMARY | 2025-02-18 10:44 | XMS_ITS | Encounter Summary ---
Author Organization [employer] ([place], [place], [place], [place]) Address [address] [place] [address] Care Team Providers Care Clerical Aide Teacher Name Role Phone Alfred Castillo MD Primary Care Provider [phone] Lyndsey Key MD Unavailable [phone] Vik Corcoran MD Unavailable Encounter Details Date Type Department Care Team (Late st Contact Info) Description 11/02/2018 Transcribed Document [facility] [place] [facility] [place] [address] ProviderRashard MD [address] [place] [address] Social History Tobacco Use Types Packs/Day Years Used Date Smoking Tobacco: Never Assessed Comments Unknown Sex and Gender Information Value Date Recorded Sex Assigned at Not on file Legal Sex Female 1:15 PM CDT Gender Identity Not on file Sexual Orientation Not on file documented as of this encounter Miscellaneous Notes * Cerner Conversion Note - Rashard ProviderMD - 11/02/2018 1:47 PM CDT [address] , [place] [address] Patient Copy Patient Information: Name: KATHY JIMENEZ Current Date: 11/02/2018 13:47:12 : 1940 Patient [address]: [address] [place], [place] [address] [address] Patient Attending Physician: CARMELLA MEI MD-INT Primary Care Provider: PHY, NOT LISTED Primary Care Provider Phone: Discharge Diagnosis: Weight on Admission: 194 lb, 1 oz Weight at Discharge: 186 lb, 3 oz Comment: Follow-up Instructions: With: Address: When: KASH BUTTS [address] [facility], [address] [place] [address] Business (1) 11:00 AM Comments: Bring Ins Card, Photo ID, Ins Co-pay Bring discharge instructions with you Call for follow up appointment Return with blood work With: Address: When: CLARE LIVINGSTON [address] [facility], [address] [place], [place] [id number] Business (1) Within As needed Comments: Please call to make a follow-up appointment IF you are unable to get in with Dr. Castillo within 1 week. With: Address: When: ALFRED CASTILLO [address] [facility] [address], [address] [place], [place] [id number] Business (1) Within 1 week Comments: The office is closed today until 2:00 PM this Friday. Please call to make a 1 week follow-up appointment and discuss 3-[address] scan to follow-up regarding pulmonary nodules. Also discuss antibiotic therapy. With: Address: When: NAZANIN NAVA [address] [place] [address]., [address] [place], [place] [id number] Business (1) 9:00 AM Comments: You will [...] the dressing Medical Equipment for Home Use: [facility] for bedside commode and nebulizer [phone] Home Health Services: [facility] [phone] Immunizations Documented During Stay: No Immunizations Found [...] (if any): Final Medication List: [facility], [place] [address], [phone] amiodarone (amiodarone 200 mg oral tablet) 2 [...] Follow these instructions at home: Medicines??? Take zpuu-vzz-qpqhhiq and prescription medicines only as told by [...] and water are not available, use hand zumba instructor. ? Change your dressing as told by [...] radio towers. ??? Do notuse amateur ( Bella Pictures ) radio equipment or electric ( arc [...] 12/08/2007 Document Revised: 04/21/2017 Document Reviewed: 03/06/2015 [employer] Interactive Patient Education ? 2017 [employer] Inc. Smoking Hazards Smoking cigarettes is extremely [...] contain harmful chemicals. FOR MORE INFORMATION ??? [place] Lung Association: www.lung.org ??? [place] Cancer Society: www.cancer.org This information is not intended to replace advice given to you by your health care provider. Make sure you discuss any questions you have with your health care provider. Document Released: 09/04/2005 Document Revised: 11/18/2016 Document Reviewed: 01/17/2014 [employer] Interactive Patient Education ? 2017 [employer] Inc. Heart-Healthy Eating Plan Many factors influence [...] foods can I eat? Grains Breads, including Norwegian, white, serenity, wheat, raisin, rye, oatmeal, and Ecuadorean. Tortillas that are neither fried nor made with lard or trans fat. Low-fat rolls, including hotdog and hamburger buns and Bangladeshi muffins. Biscuits. Muffins. Waffles. Pancakes. Light popcorn. Whole-grain cereals. Flatbread. [place] toast. Pretzels. Breadsticks. Rusks. Low-fat snacks and [...] cheese. Whole milk cheeses, including blue (henry), Apache Gary, Brie, Hayes, Montserratian, Havarti, Belarusian, cheddar, Camembert, and [place]. Whole or 2% milk that is liquid, [...] has suet, meat fat, or shortening. [place] butter, hydrogenated oils, palm oil, coconut oil, [...] 05/06/2009 Document Revised: 02/14/2017 Document Reviewed: 01/19/2015 [employer] Interactive Patient Education ? 2017 [employer] Inc. How to Take a Pulse Your [...] 02/01/2004 Document Revised: 02/14/2017 Document Reviewed: 12/31/2016 [employer] Interactive Patient Education ? 2017 [employer] Inc. How to Take Your Blood Pressure [...] 09/22/2014 Elsevier Interactive Patient Education ? 2017 [employer] Inc. Cardiomyopathy, Adult Cardiomyopathy is a long-term [...] Other treatments may include cardiac resynchronization therapy (JUNIOR ADMINISTRATIVE ASSISTANT) or a left ventricular assist device (LVAD). [...] to manage stress. General instructions ??? Take qjdf-rzg-dtkvfsx and prescription medicines only as told by [...] 10/10/2005 Document Revised: 03/25/2017 Document Reviewed: 01/27/2017 [employer] Keys Interactive Patient Education ? 2017 [employer]. Medication Leaflets: carvedilol (PRABHJOT ve dil ole) [...] may report side effects to FDA at 0-081-LJI-4452. What other drugs will affect carvedilol? Other drugs may interact with carvedilol, including prescription and rslu-qio-gkhdwvh medicines, vitamins, and herbal products. Tell each [...] to ensure that the information provided by [employer]. ('Multum') is accurate, up-to-date, and complete, but no guarantee is made to that effect. Drug information contained herein may be time sensitive. Geosign information has been compiled for use by healthcare practitioners and consumers in the [place] and therefore Geosign does not warrant that uses outside of the [place] are appropriate, unless specifically indicated otherwise. [employer] H[employer]s drug information does not endorse drugs, diagnose patients or recommend therapy. [employer] H2s drug information is an informational resource designed [...] effective or appropriate for any given patient. [employer] does not assume any responsibility for any aspect of healthcare administered with the aid of information Geosign provides. The information contained herein is not intended to cover all possible uses, directions, precautions, warnings, drug interactions, allergic reactions, or adverse effects. If you have questions about the drugs you are taking, check with your doctor, nurse or pharmacist. Copyright 5363-5905 [employer]. Version: 15.. Revision Date: 08/30/2013. albuterol and [...] may report side effects to FDA at 6-033-MYK-8128. What other drugs will affect albuterol and ipratropium inhalation? Tell your doctor about all your current medicines and any you start or stop using, especially: ? a diuretic or 'water pill'; ?? heart or blood pressure medicine; ?? other beta-blockers; or ?? an antidepressant. This list is not complete. Other drugs may interact with albuterol and ipratropium, including prescription and atyt-lsp-bxclasc medicines, vitamins, and herbal products. Not all [...] to ensure that the information provided by [employer]. ('Multum') is accurate, up-to-date, and complete, but no guarantee is made to that effect. Drug information contained herein may be time sensitive. Geosign information has been compiled for use by healthcare practitioners and consumers in the [place] and therefore Geosign does not warrant that uses outside of the [place] are appropriate, unless specifically indicated otherwise. Geosign's drug information does not endorse drugs, diagnose patients or recommend therapy. [employer] H2s drug information is an informational resource designed [...] effective or appropriate for any given patient. [employer] does not assume any responsibility for any aspect of healthcare administered with the aid of information Geosign provides. The information contained herein is not intended to cover all possible uses, directions, precautions, warnings, drug interactions, allergic reactions, or adverse effects. If you have questions about the drugs you are taking, check with your doctor, nurse or pharmacist. Copyright 3847-8295 [employer]. Version: 7.01. Revision Date: 04/04/2017. guaifenesin (gwye [...] Description 08/23/2025 12:45 PM EST Office Visit [facility] Electrophysiology [address] [place] [address] Vik Corcoran MD [address] [facility] [address] [place], [place] [id number] documented as of this encounter Visit Diagnoses Not on filedocumented in this encounter Care Teams Clerical Aide Teacher Relationship Specialty Start Date End Date Alfred Castillo MD [address] [place] [address] [place] [address] PCP - General General Internal Medicine 08/29/22 [place] [address] [place] [address] [id number] Bioinformatics Support Specialist Interventional Cardiology 08/29/22 Vik Corcoran MD [address] [place] [address] [id number] Bioinformatics Support Specialist Electrophysiology 05/19/24 documented as of this encounter
--- OUTSIDE RECORDS SUMMARY | 2025-02-18 10:44 | XMS_ITS | Encounter Summary ---
Author Organization [email or web address] ([place], [place], [place], [place]) Address [address] [place] [address] Care Team Providers Care Plant Operator Control Room Operator Name Role Phone Alfred Cantu MD Primary Care Provider [phone] Lyndsey Key MD Unavailable [phone] Vik Corcoran MD Unavailable Encounter Details Date Type Department Care Team (Late st Contact Info) Description 11/02/2018 Transcribed Document [facility] [place] [place] Family Medicine [facility] [place] [address] ProviderRashard MD [address] [place] [address] Social History Tobacco Use Types Packs/Day Years Used Date Smoking Tobacco: Never Assessed Comments Unknown Sex and Gender Information Value Date Recorded Sex Assigned at Not on file Legal Sex Female 1:15 PM CDT Gender Identity Not on file Sexual Orientation Not on file documented as of this encounter Miscellaneous Notes * Cerner Conversion Note - Rashard ProviderMD - 11/02/2018 12:01 PM CDT Patient: KATHY CARTER Age: 78 years Sex: Female : 1940 Associated Diagnoses: None Author: KASH BUTTS MD-[facility] Basic Information Admit information: Cardiomyopathy with ejection fraction about 25%. She also had low sodium about 127-128. I looked at the last year or 2 she never had a serum sodium of 129. Today her sodium dropped to 122 for consulted , Today's Information: Sodium 128 . Review of Systems Eye: No recent visual problem, No blurring. Respiratory: No shortness of breath, No cough. Gastrointestinal: No nausea, No vomiting, No diarrhea. Health Status Allergies.Current medications: Medications by Classification Antimicrobials doxycycline - 100 mg, Oral, Cap, BID, Routine Anticoagulant apixaban (Eliquis) - 5 mg, Oral, Tab, [id number], Routine Cardiovascular carvedilol (Coreg) - 12.5 mg, Oral, Tab, BID, Routine lisinopril - 5 mg, Oral, Tab, Daily, Routine Respiratory albuterol-ipratropium (DuoNeb 0.5 mg-2.5 mg/3 [...] PRN for Other (See Comment), Routine *Duplicate* ELECTRIC TRUCK CRANE OPERATOR miconazole topical (Desenex AF 2% topical [...] Last 24 Hours (7a-7a) Intake (5 Events) Continuous Infusions (400 mL) Oral Fluids (240 mL) Output (2 Events) Urine Voided (Volume) (300 mL) Input Total: 640 mL Output Total: 300 mL Balance: 340 mL , Weight (Daily) 10/22/2018 04:00 Routine Weight, Kilograms: 88.4 VS/Measurements Vitals Signs (last 24 hrs) Last Charted Minimum Maximum Temp 97.6 (NOV 02 09:30) 97.6 (NOV 02 09:30) 98.3 (NOV 01 21:00) Apical HR 83 (NOV 02 09:30) 73 (NOV 01 20:43) 83 (NOV 02 09:30) Mon HR 72 (NOV 02 11:35) 69 (NOV 01 21:00) 92 (NOV 01 17:23) Resp Rate 20 (NOV 02 09:30) 16 (NOV 01 17:33) 20 (NOV 02 09:30) SBP 130 (NOV 02 11:35) 98 (NOV 02 01:59) H 151 (NOV 01 14:30) DBP 76 (NOV 02 11:35) L 55 (NOV 02 01:59) H 97 (NOV 01 14:30) MAP 102 (NOV 02 11:35) 69 (NOV 02 01:59) 114 (NOV 01 14:30) SpO2 96 (NOV 02 11:00) 96 (NOV 02 11:00) 99 (NOV 01 17:23) General: No acute distress. HENT: Normocephalic, Oral mucosa is moist. Respiratory: Lungs are clear to auscultation, Symmetrical chest wall expansion. Cardiovascular: Normal rate, No murmur, No gallop, No edema. Gastrointestinal: Soft, Non-tender, Non-distended, Normal bowel sounds. Integumentary: Warm, Dry. Neurologic: Alert, Oriented, No focal deficits. Psychiatric: Cooperative, Appropriate mood & affect, Normal judgment. Review / Management Results review: Labs (Last four charted values) WBC H 17.5 (NOV 02) H 28.4 (NOV 01) C 35.1 (OCT 31) C 39.8 (OCT 30) HB L 9.0 (NOV 02) L 10.0 (NOV 01) L 10.5 (OCT 31) 11.7 (OCT 30) HCT L 27.8 (NOV 02) L 29.8 (NOV 01) L 32.0 (OCT 31) 35.3 (OCT 30) Plt L 128 (NOV 02) L 134 (NOV 01) L 138 (OCT 31) 169 (OCT 30) Na L 129 (NOV 02) L 126 (NOV 02) L 122 (NOV 01) C 120 (NOV 01) K 4.9 (NOV 01) 4.0 (OCT 31) [...] Troponin H 0.079 (OCT 21) . NOV 02 06:50 \ L 9.0 / H 17.5 L 128 / L 27.8 \ SOsm 251, Uric Acid 6.8, TSH [...] differential would be hypovolemic hyponatremia versus SIADH ResolvrdAcute kidney injury creatinine has jumped to 1.2 possibly because of diuresis better 0.9 now Cardiomyopathy due to drug and external agent, Cardiomyopathy due to drug and external agent Plan Hypovolumic Hyponatremic resolved withIVNS now 129 , discussed with patient, she is asymptomatic at his time, has been discharged RTC in 2- 3 weeks documented in this encounter Plan of Treatment Upcoming Encounters Date Type Department Care Team (Late st Contact Info) Description 08/23/2025 12:45 PM EST Office Visit [facility] Electrophysiology [address] [place] [address] [place] [address] [place] [address] [address] [place] [address] documented as of this encounter Visit Diagnoses Not on filedocumented in this encounter Care Teams Plant Operator Control Room Operator Relationship Specialty Start Date End Date Alfred Cantu MD [address] [place] [address] PCP - General General Internal Medicine 08/29/22 Lyndsey Key MD [address] [facility] [address] [place], [place] [id number] Stain Dipper Interventional Cardiology 08/29/22 Vik Corcoran MD [address] [facility] [place] [address] Stain Dipper Electrophysiology 05/19/24 documented as of this encounter
--- OUTSIDE RECORDS SUMMARY | 2025-02-18 10:44 | XMS_ITS | Encounter Summary ---
Author Organization [employer] ([place], [place], [place], [place]) Address [address] [place] [address] Care Team Providers Care Mexican Food Maker Name Role Phone Alfred Cantu MD Primary Care Provider [phone] Lyndsey Key MD Unavailable [phone] Vik Corcoran MD Unavailable Encounter Details Date Type Department Care Team (Late st Contact Info) Description 10/21/2018 Transcribed Document [facility] [place] Family Medicine [address] [place] [address] ProviderRashard MD [address] [place] [address] Social History Tobacco Use Types Packs/Day Years Used Date Smoking Tobacco: Never Assessed Comments Unknown Sex and Gender Information Value Date Recorded Sex Assigned at Not on file Legal Sex Female 1:15 PM CDT Gender Identity Not on file Sexual Orientation Not on file documented as of this encounter Miscellaneous Notes * Cerner Conversion Note - Rashard ProviderMD - 10/21/2018 11:09 AM CDT Attempt to Treat, PT Entered On: 10/21/2018 11:09 EDT Performed On: 10/21/2018 11:09 EDT by DANISH BARAKAT PT Attempt to Treat Unable to Treat Due To : Patient on hold Inability to Treat Comment : Pt going for pacemaker placement today. Requested reorder for PT after procedure is completed. RN agreeable to get order. DANISH BARAKAT, PT - 10/21/2018 11:09 EDT Electronically signed by Kav[facility] Conversion Craft Worker Cerner at 11/28/2022 5:36 PM CDT documented in this encounter Plan of Treatment Upcoming Encounters Date Type Department Care Team (Late st Contact Info) Description 08/23/2025 12:45 PM EST Office Visit [facility] Electrophysiology [address] [place] [address] [place] [address] [place] [address] [address] [place], [place] [id number] documented as of this encounter Visit Diagnoses Not on filedocumented in this encounter Care Teams Mexican Food Maker Relationship Specialty Start Date End Date Alfred Cantu MD [address] [place] [address] PCP - General General Internal Medicine 08/29/22 [place] [address] [place] [address] [address] [place] [address] Passenger Flagman Interventional Cardiology 08/29/22 [place] [address] [place] [address] [address] [place], [place] [id number] Passenger [employer] Electrophysiology 05/19/24 documented as of this encounter
--- OUTSIDE RECORDS SUMMARY | 2025-02-18 10:44 | XMS_ITS | Encounter Summary ---
Author Organization [employer] ([place], [place], [place], [place]) Address [address] [place] [address] Care Team Providers Care Aluminum Siding Applicator Name Role Phone Alfred Cantu MD Primary Care Provider [phone] Lyndsey Key MD Unavailable [phone] Vik Corcoran MD Unavailable Encounter Details Date Type Department Care Team (Late st Contact Info) Description 10/21/2018 Transcribed Document [facility] [place] [facility] [place] [address] ProviderRashard MD [address] [place] [address] Social History Tobacco Use Types Packs/Day Years Used Date Smoking Tobacco: Never Assessed Comments Unknown Sex and Gender Information Value Date Recorded Sex Assigned at Not on file Legal Sex Female 1:15 PM CDT Gender Identity Not on file Sexual Orientation Not on file documented as of this encounter Miscellaneous Notes * Cerner Conversion Note - Rashard ProviderMD - 10/21/2018 5:13 AM CDT Evaluation, Physical Therapy Entered On: 10/22/2018 14:57 EDT Performed On: 10/22/2018 14:42 EDT by CAITY SMALL PT General Information, PT Visit Type, PT : Initial evaluation Patient Orders : Order Date Order Ordering 10/21/2018 05:14 PT Evaluation and Treatment Ordered By: KENNETH OSBORN MD Active Diagnoses : No Qualifying Diagnoses Therapy Diagnosis, PT : Decreased endurance Admission Date : 10/20/2018 23:00 Co-treated by, PT : Occupational Therapist Personal Devices : Personal Devices No Devices Recorded Assistive Devices : Assistive Devices No Devices Recorded Isolation Maintained : Droplet General Information Comment, PT : Admitted with Cardiomyopathy, Pneumonia Hx of CHF, Mitral Regurgitation, HTN, Asthma, EF=25-30%, Anxiety, HLD, CHolecystectomy, Hysterectomy CAITY SMALL, PT - 10/22/2018 14:46 EDT General Status Patient Received Status : Other: [facility] [place] Treatment Start Time : 10/22/2018 14:25 EDT Patient Left Status : Up in chair, RN/PCT informed, Communication board completed, All needs met and within reach RN/PCT Informed Comment : OK to see per RN Treatment End Time : 10/22/2018 14:42 EDT Treatment Time : 17 Minute(s) CAITY SMALL, PT - 10/22/2018 14:46 EDT History and Environment Living Situation, Therapy : Home Patient Lives With : Spouse Persons Assisting Patient at Home : Spouse Professional Skilled Services : None Persons Providing Information : Patient Home Equipment Therapy, PT : Cane, Walker Cane : Cane, single point Walker : Walker, front wheel Home Setup : One story Stairs : Yes Stair Location(s) : Outside Outside Stairs, Number of Steps : 1 CAITY SMALL, PT - 10/22/2018 14:46 EDT Prior Level of Function PT GRID Prior LOF Ambulation, Household : Independent Prior LOF Ambulation, Community : Independent Prior LOF Bed Mobility : Independent Prior LOF Toileting : Independent Prior LOF Transfer : Independent CAITY SMALL, PT - 10/22/2018 14:46 EDT Intervention Summary Heart Rate/Pulse Pre-intervention : 91 bpm BP Systolic Pre-intervention : 111 mmHg BP Diastolic Pre-intervention : 60 mmHg O2 Pre-Intervention : 3 L SpO2 Pre-Intervention : 97 % Heart Rate/Pulse Post-intervention : 93 bpm BP Systolic Post-intervention : 115 mmHg BP Diastolic Post-intervention : 87 mmHg O2 Post-Intervention : 3 L SpO2 Post-Intervention : 97 % CAITY SMALL, PT - 10/22/2018 14:46 EDT Upper Extremity Upper Extremity Dominance : Right Right UE Active ROM : WFL Left UE Active ROM : WFL CAITY SMALL, PT - 10/22/2018 14:46 EDT RadialDeviation 0-20 Shoulder Flexion 0-180 : 3+/fair Elbow Flexion 0-150 : 3+/fair Elbow Extension 0-0 : 3+/fair CAITY SMALL, PT - 10/22/2018 14:46 EDT RadialDeviation 0-20 LUE Shoulder Flexion 0-180 : 3+/fair Elbow Flexion 0-150 : 3+/fair Elbow Extension 0-0 : 3+/fair CAITY SMALL, PT - 10/22/2018 14:46 EDT Lower Extremity RLE Active ROM : WFL LLE Active ROM : WFL CAITY SMALL, PT - 10/22/2018 14:46 EDT Right Lower Extremity MMT Hip Flexion (0-125) : 4/good Hip Abduction (0-45) : 5/normal Hip Adduction (0-20) : 5/normal Knee Flexion (0-140) : 4/good Knee Extension (0-0) : 5/normal Ankle Dorsiflexion (0-20) : 5/normal CAITY SMALL, PT - 10/22/2018 14:46 EDT Left Lower Extremity MMT Hip Flexion (0-125) : 4/good Hip Abduction (0-45) : 5/normal Hip Adduction (0-20) : 5/normal Knee Flexion (0-140) : 4/good Knee Extension (0-0) : 5/normal Ankle Dorsiflexion (0-20) : 5/normal CAITY SMALL, PT - 10/22/2018 14:46 EDT Functional Mobility Mobility Grid Sit to Stand : Supervision/set-up Bed to Chair : Rehab Minimal assistance (Comment: BSC to chair [CAITY SMALL, PT - 10/22/2018 14:46 EDT] ) Stand to Sit : Supervision/set-up CAITY SMALL, PT 10/22/2018 14:46 EDT Sit to Stand Device : Belt, gait Bed to Chair Device : Belt, gait Stand to Sit Device : Belt, gait CAITY SMALL, PT - 10/22/2018 14:46 EDT Gait Training/Assessment, PT Weight Bearing Status Maintained : Yes Weight Bearing Status : Full Gait Assistance Level : Assist, minimal Walking Distance : Amb 5' BSC to chair with min assist on 3 L O2 Ambulatory Devices : None, Gait belt Gait Deviations : Yes Left Lower Gait Deviation : Foot clearance, decreased Right Lower Gait Deviation : Foot clearance, decreased CAITY SMALL, PT - 10/22/2018 14:46 EDT Activity Tolerance, PT Activity Tolerance, PT Activity #1 Activity : Standing supported Comment (Comment: to be cleaned up [CAITY SMALL, PT - 10/22/2018 14:46 EDT] ) CAITY SMALL, PT - 10/22/2018 14:46 EDT Activity Comment : Used [facility] [place] CAITY SMALL, PT - 10/22/2018 14:46 EDT Cognition Assessment, PT Orientation : Oriented x 4 Follows Basic Command Assessment : Yes CAITY SMALL, PT - 10/22/2018 14:46 EDT Edu Topics Physical Therapy Education Grid Gait Training : Needs further teaching Safety : Needs further teaching Transfer Training : Returns demonstration, Needs further teaching CAITY SMALL, PT - 10/22/2018 14:46 EDT Indication Assesessment, PT Physical Therapy Indicated : Yes PT Problem List : Impaired, endurance tolerance, Impaired, gait, Impaired, strength, Impaired, transfers Potential Barriers To Therapy : None evident Rehabilitation Potential : Good CAITY SMALL, PT - 10/22/2018 14:46 EDT Plan of Care, PT PT Tx Plan/Goals Established w Patient : Yes PT Frequency Rehab : Five days per week PT Duration Rehab : Fourteen days PT Treatments Planned : Bed mobility training, Gait training, Therapeutic exercises, Transfer training CAITY SMALL, PT - 10/22/2018 14:46 EDT Short Term Goals Ambulation STG Grid Goal #1 Device : Walker, front wheel Distance : 375' Assist : Supervision or set-up Date to Meet : 10/29/2018 EDT Goal Status : Intial Goal CAITY SMALL, PT - 10/22/2018 14:46 EDT Fdc Goals Ambulation LTG Grid Goal #1 Device : None Distance : 375' Assist : Supervision or set-up Date to Meet : 11/05/2018 EDT Goal Status : Intial Goal CAITY SMALL, PT - 10/22/2018 14:46 EDT Treatment Note Subjective Comment : Her goal is to go home and go to [facility] Patient's Response to Treatment : Fatigued rapidly Additional Objective Information : She stood to be cleaned up and walked 5' with min assist from BSC to chair Assessment : Needs work on gt and endurance Plan for Treatment : Gt EX CAITY SMALLJasmin, PT - 10/22/2018 14:46 EDT Pain Assessment Pain Scaled Used : 0-10 Pain scale Pain Score Pre-Intervention : 0 CAITY SMALLJasmin, PT - 10/22/2018 14:46 EDT Image 1 - Images currently included in the form version of this document have not been included in the text rendition version of the form. Anticipated Discharge Needs, OT/PT Anticipated Discharge to OT : Home, with family care CAITY SMALL Toy, PT - 10/22/2018 14:46 EDT [place] PT Charges PT Eval Moderate Complexity : 1 CAITY SMALL Toy, PT - 10/22/2018 14:46 EDT Electronically signed by [facility] Conversion Associate Material Handler Cerner at 11/28/2022 5:37 PM CDT documented in this encounter Plan of Treatment Upcoming Encounters Date Type Department Care Team (Late st Contact Info) Description 08/23/2025 12:45 PM EST Office Visit [facility] Electrophysiology [address] [place] [phone] Vik Corcoran MD [address] [place] [address] [id number] documented as of this encounter Visit Diagnoses Not on filedocumented in this encounter Care Teams Aluminum Siding Applicator Relationship Specialty Start Date End Date Alfred Cantu MD [address] [place] [address] PCP - General General Internal Medicine 08/29/22 [place] [address] [place] [address] [id number] Cream Hauler Interventional Cardiology 08/29/22 Vik Corcoran MD [address] [place] [address] [address] Cream Hauler Electrophysiology 05/19/24 documented as of this encounter
--- OUTSIDE RECORDS SUMMARY | 2025-02-18 10:44 | XMS_ITS | Encounter Summary ---
Author Organization [employer] ([place], [place], [place], [place]) Address [address] [place] [address] Care Team Providers Care Editor Dictionary Name Role Phone Alfred Cantu MD Primary Care Provider [phone] Lyndsey Key MD Unavailable [phone] Vik Corcoran MD Unavailable Encounter Details Date Type Department Care Team (Late st Contact Info) Description 11/10/2018 Transcribed Document [facility] [place] Family [place] [facility] [address] ProviderRashard MD [address] [place] [address] Social History Tobacco Use Types Packs/Day Years Used Date Smoking Tobacco: Never Assessed Comments Unknown Sex and Gender Information Value Date Recorded Sex Assigned at Not on file Legal Sex Female 1:15 PM CDT Gender Identity Not on file Sexual Orientation Not on file documented as of this encounter Miscellaneous Notes * Cerner Conversion Note - Rashard ProviderMD - 11/10/2018 2:58 PM CDT Post Visit Phone Call Entered On: 11/10/2018 14:59 EDT Performed On: 11/10/2018 14:58 EDT by Carissa Massey Rn Post Visit Phone Call Post Visit Phone Call History : First call, Second call, No answer, Other: mailbox full and cannot accept new messages Carissa Massey Rn - 11/10/2018 14:58 EDT documented in this encounter Plan of Treatment Upcoming Encounters Date Type Department Care Team (Late st Contact Info) Description 08/23/2025 12:45 PM EST Office Visit [facility] Electrophysiology [address] [place] [phone] [place] [address] [place] [address] [address] [place] [id number] documented as of this encounter Visit Diagnoses Not on filedocumented in this encounter Care Teams Editor Dictionary Relationship Specialty Start Date End Date Alfred Cantu MD [address] [place] [address] PCP - General General Internal Medicine 08/29/22 [place] [address] [place] [address] [address] [place] [id number] Nozzle Tender Interventional Cardiology 08/29/22 Vik Corcoran MD [address] [place] [address] [address] Nozzle Tender Electrophysiology 05/19/24 documented as of this encounter
--- OUTSIDE RECORDS SUMMARY | 2025-02-18 10:44 | XMS_ITS | Encounter Summary ---
Author Organization [employer] ([place], [place], [place], [place]) Address [address] [place] [address] Care Team Providers Care Endless Track Vehicle Supervisor Name Role Phone Alfred Cantu MD Primary Care Provider [phone] Lyndsey Key MD Unavailable [phone] Vik Corcoran MD Unavailable Encounter Details Date Type Department Care Team (Late st Contact Info) Description 11/02/2018 Transcribed Document [facility] [place] [address] [place] [address] ProviderRashard MD [address] [place] [address] Social History Tobacco Use Types Packs/Day Years Used Date Smoking Tobacco: Never Assessed Comments Unknown Sex and Gender Information Value Date Recorded Sex Assigned at Not on file Legal Sex Female 1:15 PM CDT Gender Identity Not on file Sexual Orientation Not on file documented as of this encounter Miscellaneous Notes * Cerner Conversion Note - Rashard ProviderMD - 11/02/2018 10:56 AM CDT Care Management Assessment/Plan Entered On: 11/02/2018 12:26 EDT Performed On: 11/02/2018 12:23 EDT by REGINA TERRY Hotel Controller Care Management Note Anticipated Discharge Date : 10/23/2018 15:00 EDT Care Management Note : Continue to follow for discharge needs and arrangements, chart reviewed, patient to discharge needs and arrangements. Chart reviewed, patient to discharge home today, transport via family, who will assist with care. [facility] has been alerted to discharge, forwarded updated clinical information and will begin POC upon discharge. Patient's room air was above 90, both at rest and ambulating, per bedside nurse, therefore home oxygen is no longer needed, [facility] to steel [employer]ler delivered equipment. Order received to arrange for home nebulizer, arranged via [facility], and they will deliver equipment to patient's home. Pt, RN and family aware and in agreement with plan. Care Management Note Report : REGINA TERRY Social Worker - 10/30/18 11:33:03 Continue to follow for discharge needs and arrangements, admission day #10, 2 liters/nebs, Mg=140, WBC=39.8, CT Abd/pelvis/chest=IMPRESSION: 5 mm nodule in the right mid lung. Right lower lobe consolidation and small right pleural effusion. Follow-up to complete resolution recommended. No nephrolithiasis or hydronephrosis; PO Doxy, PT/LL=362', Bi-V-ICD site CDI, confirmed with spouseBraxton ([phone]) that plan at discharge remains to return home, HH in place via [facility], O2 for transport at bedside, via [facility] (at discharge will need new room air forwarded to provider @[phone]),BSC ordered via [facility] and they will contact patient's family about delivery to patient's home. CM will continue to follow. LAURA IY Hotel Controller - 10/28/18 15:47:17 Covering today for D/C [...] #7, on 2 liters O2 REGINA TERRY Hotel Controller - 10/27/18 17:50:49 Continue to follow for discharge needs and arrangements, chart reviewed, admission day #7, on 2 liters O2, room air=88%; plan is for patient to discharge home with spouse, Braxton ([phone]) who will transport and assist as needed. Orders received for home health and for home oxygen, d/w spouse providers, [facility] and [facility] chosen, referrals made, and portable O2 to be delivered to patient's room prior to discharge and HH to follow up to begin POC upon discharge. CM will continue to follow until discharge to finalize transfer arrangements. REGINA TERRY Hotel Controller - 10/26/18 17:32:42 Continue to follow for discharge needs and arrangements, chart reviewed, admission day #6, on 2 liters O2/nebs, Kz=208, Cl=95, WBC=18.9, CXR=FINDINGS: The heart is stable in size. The lung rosario demonstrate no significant change in the right base atelectasis. There is no pneumothorax. The support devices are in good position. IMPRESSION: There has been no significant interval change; PT/NK=014' with rwx, PO Prednison, EP completed wound check today on Bi-V-ICD site, plan at discharge (possible Friday10/27/18) is to return home with spouse, Braxton, who will transport and assist with care. HH choice at discharge is [facility], once HH orders for RN/PT/OT in place will make referral and finalize arrangements. Will also watch for patient's room air level on day of discharge in case home oxygen is needed. Will continue to follow. REGINA TERRY Hotel Controller - 10/23/18 17:17:58 Continue to follow for discharge needs and arrangements, chart reviewed, admission day #3, transfer from SICU, currently on 2 liters O2/nebs, Zw=062, Cl=88, Mg=2.5, WBC=18.3, CXR=pending, on IV Solumedrol q6, PT/OT-will need reeval orders due to recent procedure, patient underwent a Bi-V-ICD placement today. Plan at discharge remains to return home with family support (+/- Home Health). CM will continue to follow. CONNIE LIVE, RN-Equipment Coordinator - 10/22/18 13:28:57 improving chf. severe mitral regurg. nicm bipap/02 3L nc. zithromax. lasix iv q 8 hr. PT/OT consults. biv icd tomorrow. CONNIE LIVE, RN-Equipment Coordinator - 10/21/18 13:09:33 readmit risk: moderate 57. transfer from [facility]. acute excerbation systolic heart failure. ef 25-30%. severe mitral regurg. severe nicm. CAP. for biv icd today. bipap 50%/02 4-6L nc. zithromax po. zosyn iv. ca gluconate iv x 2. kcl 20meq x 1. na phos iv x 1. PT consult. spoke with Ms. Jimenez. explained role of case management. pt resides in [facility]. she is adl independent. drives car. has cane, walker & cpap provided by [employer]. no current home health or previous rehab stays. discussed dc planning rehab vs home health depending on progress. pt has medicare primary. she advises she has [employer] insurance. notified Aubrie, pt advocate for inclusion in records. spoke with bedside RNMagda. Documentation Status Complete : Yes REGINA TERRY Social Worker - 11/02/2018 12:23 EDT Discharge Planning Details Discharge Home : Home, Home health (related) Home Caregiver Name/Relationship : Braxton Jimenez spouse [phone] Discharge Home Care Needs : Occupational therapy, Physical Therapy, shelter care Discharge Placement Needs : Home Persons Assisting Patient at Home : Spouse Transportation Needs : REGINA [place] Social Worker - 11/02/2018 12:23 EDT Final Discharge Disposition Note-CM Discharge To Care Management : Home Health Services (Related/SOC within 3 days)-06 Name of Receiving Facility/Provider-CM : [facility] REGINA TERRY Social Worker - 11/02/2018 12:23 EDT documented in this encounter Plan of Treatment Upcoming Encounters Date Type Department Care Team (Late st Contact Info) Description 08/23/2025 12:45 PM EST Office Visit [facility] Electrophysiology [address] [place] [address] [place] [address] [place] [address] [address] [place] [id number] documented as of this encounter Visit Diagnoses Not on filedocumented in this encounter Care Teams Endless Track Vehicle Supervisor Relationship Specialty Start Date End Date Alfred Cantu MD [address] [place] [address] PCP - General General Internal Medicine 08/29/22 [place] [address] [place] [address] [address] [place], [place] [id number] Log Snaker Interventional Cardiology 08/29/22 Vik Corcoran MD [address] [facility] [address] [place], [place] [id number] Log Snaker Electrophysiology 05/19/24 documented as of this encounter
--- OUTSIDE RECORDS SUMMARY | 2025-02-18 10:44 | XMS_ITS | Encounter Summary ---
Author Organization [employer] ([place], [place], [place], [place]) Address [address] [place] [address] Care Team Providers Care Packing Line Worker Name Role Phone Alfred Cantu MD Primary Care Provider Lyndsey Key MD Unavailable [phone] Vik Corcoran MD Unavailable Encounter Details Date Type Department Care Team (Late st Contact Info) Description 07/24/2021 Transcribed Document [facility] [place] [address] [place] [address] ProviderRashard MD [address] [place] [address] Social History Tobacco Use Types Packs/Day Years Used Date Smoking Tobacco: Never Assessed Comments Unknown Sex and Gender Information Value Date Recorded Sex Assigned at Not on file Legal Sex Female 1:15 PM CDT Gender Identity Not on file Sexual Orientation Not on file documented as of this encounter Miscellaneous Notes * Cerner Conversion Note - Rashard Gonzalez MD - 07/24/2021 7:46 AM CERTIFIED NURSE Patient Education Materials Follows: What to do if you are sick with coronavirus disease 2019 (COVID-19) If you are sick with COVID-19 or suspect you are infected with the virus that causes COVID-19, follow the steps below to help prevent the disease from spreading to people in your home and community. Stay home except to get medical care You should restrict activities outside your home, except for getting medical care. Do not go to work, school, or public areas. Avoid using public transportation, ride-sharing, or taxis. Separate yourself from other people and animals in your home People: As much as possible, you should stay in a specific room and away from other people in your home. Also, you should use a separate bathroom, if available. Animals: Do not handle pets or other animals while sick. See HYPERLINK https://www.cdc.gov/coronavirus/2019-ncov/faq.html#6878-rPbH-vnh-animals COVID-19 and Animals for more information. Call [...] clean your hands with an alcohol-based hand securities vault supervisor that contains at least 60 to 95% [...] clean your hands with an alcohol-based hand securities vault supervisor that contains at least 60% alcohol, covering [...] isolation precautions should be made on a rvpx-fr-ucnp basis, in consultation with healthcare providers and [...] to thoroughly wash your hands, use hand securities vault supervisor. While handwashing is best, hand securities vault supervisor helps to reduce the spread of germs when you are out and about. Have hand securities vault supervisor in several locations so you can always [...] keep people from also getting sick. Don???t [place] It! Sneezing this time of year is [...] a PCP near you, please visit HYPERLINK [email or web address]. October 15, 2019 Pharmacology Moderate Conscious Sedation, Adult, Care After This [...] you are awake and alert. ??? Take zrzd-ddp-lboateu and prescription medicines only as told by [...] provider. Document Revised: 06/22/2020 Document Reviewed: 06/22/2020 [employer] Patient Education ? 2020 [employer]. Radiology Transesophageal Echocardiogram Transesophageal echocardiogram (PETER) is [...] including vitamins, herbs, eye drops, creams, and fwbn-tic-rbipudu medicines. ??? Any problems you or family [...] Up to 3 hours before the procedure ? you may continue to drink clear liquids, such as water, clear fruit juice, black coffee, and plain tea. Eating and drinking Follow instructions from your health care provider about eating and drinking, which may include: ??? 8 hours before the procedure ? stop eating heavy meals or foods such as meat, fried foods, or fatty foods. ??? 6 hours before the procedure ? stop eating light meals or foods, such as toast or cereal. ??? 6 hours before the procedure ? stop drinking milk or drinks that contain milk. ??? 3 hours before the procedure ? stop drinking clear liquids. General instructions ??? [...] diabetes medicines or blood thinners. ? Taking aqfk-gek-afrpmmy medicines, vitamins, herbs, and supplements. ? Taking [...] received a sedative. Summary ??? Transesophageal echocardiogram (PEETR) is a test that uses sound waves [...] provider. Document Revised: 01/06/2018 Document Reviewed: 10/24/2017 Elsevier Patient Education ? 2020 [employer] documented in this encounter Plan of Treatment Upcoming Encounters Date Type Department Care Team (Late st Contact Info) Description 08/23/2025 12:45 PM EST Office Visit [facility] Electrophysiology [address] [place] [phone] Vik Corcoran MD [address] [place] [address] [id number] documented as of this encounter Visit Diagnoses Not on filedocumented in this encounter Care Teams Packing Line Worker Relationship Specialty Start Date End Date Alfred Cantu MD [address] [place] [phone] PCP - General General Internal Medicine 08/29/22 Lyndsey Key MD [address] [place] [address] [address] Garage Laborer Interventional Cardiology 08/29/22 Vik Corcoran MD [address] [place] [address] [address] Garage Laborer Electrophysiology 05/19/24 documented as of this encounter
--- OUTSIDE RECORDS SUMMARY | 2025-02-18 10:44 | XMS_ITS | Encounter Summary ---
Author Organization [employer] ([place], [place], [place], [place]) Address [address] [place] [address] Care Team Providers Care Care Transport Nurse Name Role Phone Alfred Cantu MD Primary Care Provider Lyndsey Key MD Unavailable Vik Corcoran MD Unavailable Encounter Details Date Type Department Care Team (Late st Contact Info) Description 10/22/2018 Transcribed Document [facility] [place] [facility] [place] [address] ProviderRashard MD [address] [place] [address] Social History Tobacco Use Types Packs/Day Years Used Date Smoking Tobacco: Never Assessed Comments Unknown Sex and Gender Information Value Date Recorded Sex Assigned at Not on file Legal Sex Female 1:15 PM CDT Gender Identity Not on file Sexual Orientation Not on file documented as of this encounter Miscellaneous Notes * Cerner Conversion Note - Rashard ProviderMD - 10/22/2018 10:31 AM CDT Combatant Diver Officer Details Entered On: 10/23/2018 0:20 EDT Performed On: 10/22/2018 20:00 EDT by Alba Smallwood Rn Order Details [...] : No Alba Smallwood Rn - 10/23/2018 0:20 EDT Electronically signed by Kavita [facility] Conversion Ground Intelligence Officer Cerner at 11/28/2022 5:38 PM CDT documented in this encounter Plan of Treatment Upcoming Encounters Date Type Department Care Team (Late st Contact Info) Description 08/23/2025 12:45 PM EST Office Visit [facility] Electrophysiology [address] [place] [phone] Vik Corcoran MD [address] [place] [address] [address] [place] [phone] documented as of this encounter Visit Diagnoses Not on filedocumented in this encounter Care Teams Care Transport Nurse Relationship Specialty Start Date End Date Alfred Cantu MD [address] [place] [address] PCP - General General Internal Medicine 08/29/22 Lyndsey Key MD [address] [place] [address] [address] Clinical Care Manager Interventional Cardiology 08/29/22 Vik Corcoran MD [address] [place] [address] [id number] Clinical Care Manager Electrophysiology 05/19/24 documented as of this encounter
--- OUTSIDE RECORDS SUMMARY | 2025-02-18 10:44 | XMS_ITS | Encounter Summary ---
Author Organization [employer] ([place], [place], [place], [place]) Address [address] [place] [address] Care Team Providers Care Director Of Land Acquisition Name Role Phone Alfred Cantu MD Primary Care Provider [phone] Lyndsey Key MD Unavailable [phone] Vik Corcoran MD Unavailable Encounter Details Date Type Department Care Team (Late st Contact Info) Description 10/22/2018 Transcribed Document [facility] [place] [facility] [address] ProviderRashard MD [address] [place] [address] Social History Tobacco Use Types Packs/Day Years Used Date Smoking Tobacco: Never Assessed Comments Unknown Sex and Gender Information Value Date Recorded Sex Assigned at Not on file Legal Sex Female 1:15 PM CDT Gender Identity Not on file Sexual Orientation Not on file documented as of this encounter Miscellaneous Notes * Cerner Conversion Note - Rashard ProviderMD - 10/22/2018 5:00 PM CDT Chart Check - Review Order Profile Entered On: 10/22/2018 17:52 EDT Performed On: 10/22/2018 17:00 EDT by JEFF WALTERS RN Chart Check Chart Reviewed Date and Time : 10/22/2018 17:00 EDT Powerplans Initiated/Discontinued as Appropriate : Yes JEFF WALTERS RN - 10/22/2018 17:52 EDT Electronically signed by Kavita [facility] Conversion Catering Staff Member Cerner at 11/28/2022 5:40 PM CDT documented in this encounter Plan of Treatment Upcoming Encounters Date Type Department Care Team (Late st Contact Info) Description 08/23/2025 12:45 PM EST Office Visit [facility] Electrophysiology [address] [place] [address] [place] [address] [place] [address] [address] [place], [place] [phone] documented as of this encounter Visit Diagnoses Not on filedocumented in this encounter Care Teams Director Of Land Acquisition Relationship Specialty Start Date End Date Alfred Cantu MD [address] [place] [address] PCP - General General Internal Medicine 08/29/22 [place] [address] [place] [address] [address] [place] [address] Field Service Technician Interventional Cardiology 08/29/22 [place] [address] [place] [address] [address] [place], [place] [id number] Field Service Technician Electrophysiology 05/19/24 documented as of this encounter
--- OUTSIDE RECORDS SUMMARY | 2025-02-18 10:44 | XMS_ITS | Encounter Summary ---
Author Organization [employer] ([place], [place], [place], [place]) Address [address] [place] [address] Care Team Providers Care Legal Word Processor Name Role Phone Alfred Cantu MD Primary Care Provider [phone] Lyndsey Key MD Unavailable [phone] Vik Corcoran MD Unavailable Encounter Details Date Type Department Care Team (Late st Contact Info) Description 10/21/2018 Transcribed Document [facility] [place] [place] [facility] [place] [address] ProviderRashard MD [address] [place] [address] Social History Tobacco Use Types Packs/Day Years Used Date Smoking Tobacco: Never Assessed Comments Unknown Sex and Gender Information Value Date Recorded Sex Assigned at Not on file Legal Sex Female 1:15 PM CDT Gender Identity Not on file Sexual Orientation Not on file documented as of this encounter Miscellaneous Notes * Cerner Conversion Note - Rashard ProviderMD - 10/21/2018 2:00 AM CDT Breakdown Person Details Entered On: 10/21/2018 7:04 EDT Performed On: 10/21/2018 2:00 EDT by Vernon Olsen, RN Order Details Transport Mode Order Detail : Bed (including specialty) Isolation Precautions Order Detail : Contact precautions Order Detail : N/A IV Order Detail : 1 Oxygen Order Detail : 1 Nurse Collect Order Detail : 1 Lift/Transfer : Moderate assist Central Line Order Detail : No Room Service : Not Appropriate Arterial Line : No Vernon Olsen, RN - 10/21/2018 7:04 EDT Electronically signed by [facility] Conversion Television Repair Teacher Cerner at 11/28/2022 5:34 PM CDT documented in this encounter Plan of Treatment Upcoming Encounters Date Type Department Care Team (Late st Contact Info) Description 08/23/2025 12:45 PM EST Office Visit [facility] Electrophysiology [address] [place] [phone] Vik Corcoran MD [address] [place] [address] [address] [place], [place] [phone] documented as of this encounter Visit Diagnoses Not on filedocumented in this encounter Care Teams Legal Word Processor Relationship Specialty Start Date End Date Alfred Cantu MD [address] [place] [address] PCP - General General Internal Medicine 08/29/22 Lyndsey Key MD [address] [place] [address] [address] Aluminum Welder Interventional Cardiology 08/29/22 Vik Corcoran MD [address] [place] [address] [address] Aluminum Welder Electrophysiology 05/19/24 documented as of this encounter
--- OUTSIDE RECORDS SUMMARY | 2025-02-18 10:44 | XMS_ITS | Encounter Summary ---
Author Organization [employer] ([place], [place], [place], [place]) Address [address] [place] [address] Care Team Providers Care Certified Nursing Attendant Name Role Phone Alfred Cantu MD Primary Care Provider [phone] Lyndsey Key MD Unavailable [phone] Vik Corcoran MD Unavailable Encounter Details Date Type Department Care Team (Late st Contact Info) Description 10/21/2018 Transcribed Document [facility] Family Medicine [facility] [place] [address] ProviderRashard MD [address] [place] [address] Social History Tobacco Use Types Packs/Day Years Used Date Smoking Tobacco: Never Assessed Comments Unknown Sex and Gender Information Value Date Recorded Sex Assigned at Not on file Legal Sex Female 1:15 PM CDT Gender Identity Not on file Sexual Orientation Not on file documented as of this encounter Miscellaneous Notes * Cerner Conversion Note - Rashard ProviderMD - 10/21/2018 10:12 AM CDT Patient: KATHY CARTER Age: 78 Years Sex: Female : 1940 Chief Complaint Shortness of breath Reason for Consultation Needs ICD History of Present Illness Patient is a 78 year old female transferred from [facility] last week with PNA and acute decompensation of CHF in setting of severe Mitral Regurgitation, NICM (EF 25-30%), transferred from [facility] for BIV-ICD implant. Patient has a PMH VHD (severe MR), HTN, Asthma, and obesity. Patient has LHC in 06/2017 revealing normal coronary arteries. EKG shows LBBB, with QRS at 160 ms. Review of Systems Constitutional: [No fevers, chills, sweats] Eye: [No recent vision issues, eye discharge, eye pain, redness] HEENT: [No ear pain, nasal congestion, sore throat, voice changes] Respiratory: [Positive for shortness of breath, cough, pain on breathing, and sputum production, +wheezing] Cardiovascular: [No chest pain, palpitations, syncope, + shortness of breath while laying flat] Gastrointestinal: [No nausea, vomiting, diarrhea, constipation] Genitourinary: [No hematuria, dysuria, incontinence.] Magen/Lymph: [Negative for bruising tendency, swollen lymph glands, nosebleeds, history of anticoagulation] Endocrine: [Negative for excessive thirst, excessive hunger, excessive urination, heat or cold intolerance] Musculoskeletal: [No back pain, neck pain, joint pain, muscle pain, decreased range of motion] Integumentary: [No rash, pruritus, abrasions, lesions] Neurologic: [No weakness, numbness, frequent headaches, tremors, blackouts] Psychiatric: [No anxiety, depression, mood changes, hallucinations] Physical Exam Vitals & Measurements T: 37 ??C HR: 82(Monitored) RR: 39 BP: 174/85 SpO2: 100% HT: 152.4 cm WT: 88.2 kg BMI: 38 General: [Alert, oriented, well nourished, NAD]. Neurologic: [Awake, alert, oriented x 3, no focal deficits]. Eye: [PERRL, normal conjunctiva]. HENT: [Normocephalic, normal hearing, moist oral mucosa, no scleral icterus.]. Neck: [Supple, non-tender, no carotid bruits, no JVD.]. Lungs: [decreased BS, bibasilar rales, expiratory wheezing]. Heart: [Normal rate, regular rhythm, 3/6 HSM, +S4,+ edema]. Abdomen: [Soft, NT/ND, + bowel sounds, mild abdominal distention] Musculoskeletal: [Normal ROM, no tenderness, swelling]. Skin: [Warm, dry, pink, no rashes.. Psychiatric: [Cooperative, appropriate mood & affect]. 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 Repeat Limited echo-LVEF=15-20% NYHA class III [facility] 06/2017: Normal coronaries. - LBBB; QRS 160 ms VHD - Severe Mitral Regurgitation Community acquired pneumonia - Continue Zosyn, Azithromycin Hypokalemia Replace K PLAN: She has class I indication for BIV-ICD. Explained B/R/A to patient and family, they are agreeable. Plan for this afternoon if she can lay flat Increase lasix to 40 mg IV TID. Thanks for consult. Problem List/Past Medical History Ongoing Allergic asthma Apnea, sleep Chronic GERD Dyspnea H/O hyperlipidemia H/O mitral valve insufficiency Hx of obesity Hypertension Procedure/Surgical History cataract surgery - bilateral, CHOLECYSTECTOMY, colonoscopty, hysterectomy, sinus surgery, upper gi. Medications Inpatient acetaminophen, 325 mg= 1 Tab, Oral, Q6H, PRN aspirin, 81 mg= 1 Tab, Oral, Daily calcium gluconate calcium gluconate calcium gluconate Coreg, 50 mg= 2 Tab, Oral, BID diazePAM, 5 mg= 1 Tab, Oral, BID, PRN Diovan, 80 mg= 1 Tab, Oral, Daily formoterol-mometasone 5 mcg-200 mcg/inh inhalation aerosol, 2 Puff, Inhalation, RT_BID heparin, 5000 Units= 1 mL, SubCutaneous, Q8HInt Lasix, 40 mg= 4 mL, IV Push, Q12H magnesium sulfate, 2 Gram= 50 mL, IV Piggyback, Q2H, PRN magnesium sulfate, 2 Gram= 50 mL, IV Piggyback, Daily, PRN Normal Saline Flush, 10 mL, IV Push, Q12H Normal Saline Flush, 10 mL, IV Push, See Comment, PRN nystatin, [id number] Units= 10 mL, Swish and Swallow , Q6H pantoprazole, 40 mg= 1 Tab, Oral, Daily potassium chloride 10 mEq/50 [...] mEq= 15 mL, Feeding Tube, Q2H, PRN sodium phosphate sodium phosphate spironolactone, 25 mg= 1 Tab, Oral, Daily vancomycin + Sodium Chloride 0.9% intravenous solution 250 mL Zithromax, 500 mg= 2 Tab, Oral, Daily Zosyn + Sodium Chloride 0.9% intravenous solution 100 mL Home Advair Diskus 250 mcg-50 mcg inhalation powder, 1 Puff, Inhalation, BID aspirin 81 mg oral tablet, 81 mg= 1 Tab, Oral, Daily Coreg 25 mg oral tablet, 50 mg= 2 Tab, Oral, BID diazePAM 5 mg oral tablet, 5 mg= 1 Tab, Oral, Daily diclofenac, 76 mg, Oral, BID hydroCHLOROthiazide-triamterene 25 mg-37.5 mg oral tablet, 1 Tab, Oral, Daily losartan 50 mg oral tablet, 50 mg= 1 Tab, Oral, Daily omeprazole 20 mg oral delayed release capsule, 40 mg= 2 Cap, Oral, BID ProAir HFA 90 mcg/inh inhalation aerosol, 2 Puff, Inhalation, QID Allergies Latex statins sulfa drugs Social History Alcohol Alcohol Use History No. Substance Abuse Drug Use Hx: No. Use in Last 12 Months: No. Tobacco Smoking Status Never smoker. Family History Noncontributory Lab Results Blood Gases (Current Encounter/Past 24 Hours) pH Art 7.47 HI 10/21/2018 08:07 pCO2 Art 44.5 10/21/2018 08:02 pO2 Art 121.0 HI 10/21/2018 08:07 HCO3 Art 32.1 HI 10/21/2018 08:07 BE Art 7.8 HI 10/21/2018 08:07 sO2 Art 97.9 10/21/2018 08:02 tHb Art 11.7 LOW 10/21/2018 08:07 FHHb 2.1 NA 10/21/2018 08:02 ctO2 15.9 NA 10/21/2018 08:02 FIO2 Art 50 NA 10/21/2018 08:02 Delivery Device Type Art Non-Invasive Ventilation 10/21/2018 08:02 Temperature, F Art 98.6 NA 10/21/2018 08:02 Art Blood Gas (ABG) Site Right Radial 10/21/2018 08:02 Acceptable Jacky's Test Art Acceptable 10/21/2018 08:02 Set Rate Art 18.0 NA 10/21/2018 08:02 Respiratory Rate Art 24.0 NA 10/21/2018 08:02 Comment Art NPPV 07/16 NA 10/21/2018 08:02 ABG Num of Draw Attempts 1 NA 10/21/2018 08:02 Electrolytes(BMP) Results (Current Encounter/Past 24 Hours) Sodium 128 mmol/L LOW 10/21/2018 06:27 Potassium 3.4 mmol/L LOW 10/21/2018 06:27 Chloride 89 mmol/L LOW 10/21/2018 06:27 Carbon Dioxide 31 mmol/L 10/21/2018 06:27 Anion Gap 11 10/21/2018 06:27 Blood Urea Nitrogen 12 mg/dL 10/21/2018 06:27 Glucose 90 mg/dL 10/21/2018 06:27 Calcium 8.3 mg/dL LOW 10/21/2018 06:27 Creatinine 0.80 mg/dL 10/21/2018 06:27 CBC Results (Current Encounter/Past 24 Hours) WBC 14.6 K/uL HI 10/21/2018 05:49 Hct 36.4 % 10/21/2018 05:49 Hgb 11.7 g/dL 10/21/2018 05:49 Platelet 225 K/uL 10/21/2018 05:49 CMP Results (Current Encounter/Past 24 Hours) Protein Total 6.2 Gram/dL LOW 10/21/2018 06:27 eGFR NonAfrican >60 mL/min/1.73m2 10/21/2018 06:27 A/G Ratio 0.9 LOW 10/21/2018 06:27 Globulin 3.2 Gram/dL 10/21/2018 06:27 eGFR >60 mL/min/1.73m2 10/21/2018 06:27 Creatinine 0.80 mg/dL 10/21/2018 06:27 Bun/Creatinine 15.0 10/21/2018 06:27 Sodium 128 mmol/L LOW 10/21/2018 06:27 Potassium 3.4 mmol/L LOW 10/21/2018 06:27 Chloride 89 mmol/L LOW 10/21/2018 06:27 Carbon Dioxide 31 mmol/L 10/21/2018 06:27 Anion Gap 11 10/21/2018 06:27 ALP 66 Units/Liter 10/21/2018 06:27 ALT 27 Units/Liter 10/21/2018 06:27 AST 18 Units/Liter 10/21/2018 06:27 Blood Urea Nitrogen 12 mg/dL 10/21/2018 06:27 Glucose 90 mg/dL 10/21/2018 06:27 Albumin 3.0 Gram/dL LOW 10/21/2018 06:27 Bilirubin Total 0.8 mg/dL 10/21/2018 06:27 Calcium 8.3 mg/dL LOW 10/21/2018 06:27 Magnesium 1.9 mg/dL 10/21/2018 06:23 Creatinine Clearance (Current Encounter/Past 24 Hours) Creatinine Level 0.80 mg/dL 10/21/2018 06:27 Bun/Creatinine 15.0 10/21/2018 06:27 Estimated Creatinine Clearance 42.97 mL/Min 10/21/2018 06:27 Electronically signed by Kavita, [facility] Conversion University Controller Cerner at 11/28/2022 5:39 PM CDT documented in this encounter Plan of Treatment Upcoming Encounters Date Type Department Care Team (Late st Contact Info) Description 08/23/2025 12:45 PM EST Office Visit [facility] Electrophysiology [address] [place] [id number] Vik Corcoran MD [address] [place] [address] [address] [place] [address] documented as of this encounter Visit Diagnoses Not on filedocumented in this encounter Care Teams Certified Nursing Attendant Relationship Specialty Start Date End Date Alfred Cantu MD [address] [place] [address] PCP - General General Internal Medicine 08/29/22 [place] [address] [place] [address] [address] [place] [address] Model Maker Plastic Interventional Cardiology 08/29/22 [place] [address] [place] [address] [address] [place] [address] Model Maker Plastic Electrophysiology 05/19/24 documented as of this encounter
--- OUTSIDE RECORDS SUMMARY | 2025-02-18 10:44 | XMS_ITS | Encounter Summary ---
Author Organization [employer] ([place], [place], [place], [place]) Address [address] [place] [address] Care Team Providers Care Tile Roofer Name Role Phone Alfred Cantu MD Primary Care Provider [phone] Lyndsey Key MD Unavailable Vik Corcoran MD Unavailable Encounter Details Date Type Department Care Team (Late st Contact Info) Description 11/02/2018 Transcribed Document [facility] [place] [facility] [place] [address] ProviderRashard MD [address] [place] [address] Social History Tobacco Use Types Packs/Day Years Used Date Smoking Tobacco: Never Assessed Comments Unknown Sex and Gender Information Value Date Recorded Sex Assigned at Not on file Legal Sex Female 1:15 PM CDT Gender Identity Not on file Sexual Orientation Not on file documented as of this encounter Miscellaneous Notes * Cerner Conversion Note - Rashard ProviderMD - 11/02/2018 12:41 PM CDT Education-Wound Care Entered On: 11/02/2018 12:42 EDT Performed On: 11/02/2018 12:41 EDT by Marilyn James RN Teaching/Learning Assessment Barriers To Learning : None evident Individuals Taught : Patient Readiness to Learn : Cooperative Highest Level of Education : None Readiness to Learn : Explanation Learning Style Preferences Patient : Verbal explanation Learning Style Preferences Family : None Marilyn James RN - 11/02/2018 12:41 EDT Education Topics, Wound Care Wound Education Grid Hygiene : Verbalizes understanding, Needs reinforcement Incontinence Management : Verbalizes understanding, Needs reinforcement Prevention : Verbalizes understanding, Needs reinforcement Skin Care : Verbalizes understanding, Needs reinforcement Marilyn James RN - 11/02/2018 12:41 EDT Electronically signed by Kavita, [facility] Conversion Balance Wheel Screw Hole Driller Cerner at 11/28/2022 5:43 PM CDT documented in this encounter Plan of Treatment Upcoming Encounters Date Type Department Care Team (Late st Contact Info) Description 08/23/2025 12:45 PM EST Office Visit [facility] Electrophysiology [address] [place] [phone] [place] [address] [place] [address] [address] [place] [id number] documented as of this encounter Visit Diagnoses Not on filedocumented in this encounter Care Teams Tile Roofer Relationship Specialty Start Date End Date Alfred Cantu MD [address] [place] [address] PCP - General General Internal Medicine 08/29/22 Lyndsey Key MD [address] [place] [address] [address] Television Operator Interventional Cardiology 08/29/22 Vik Corcoran MD [address] [place] [address] [address] Television Operator Electrophysiology 05/19/24 documented as of this encounter
--- OUTSIDE RECORDS SUMMARY | 2025-02-18 10:44 | XMS_ITS | Encounter Summary ---
Author Organization [employer] ([place], [place], [place], [place]) Address [address] [place] [address] Care Team Providers Care Certified Dental Assistant Name Role Phone Alfred Cantu MD Primary Care Provider [phone] Lyndsey Key MD Unavailable [phone] Vik Corcoran MD Unavailable Encounter Details Date Type Department Care Team (Late st Contact Info) Description 10/20/2018 Transcribed Document [facility] [place] Family [place] [facility] [place] [address] ProviderRashard MD [address] [place] [address] Social History Tobacco Use Types Packs/Day Years Used Date Smoking Tobacco: Never Assessed Comments Unknown Sex and Gender Information Value Date Recorded Sex Assigned at Not on file Legal Sex Female 1:15 PM CDT Gender Identity Not on file Sexual Orientation Not on file documented as of this encounter Miscellaneous Notes * Cerner Conversion Note - Rashard ProviderMD - 10/20/2018 11:04 PM CDT Admission History, Adult Entered On: 10/21/2018 0:42 EDT Performed On: 10/20/2018 23:04 EDT by Vernon Olsen RN Advance Directive Patient has Advance Directive *Q : Yes, Advance Directive not with the patient Advance Directive Type : Living will Copy Advance Directive Verified/on Chart : No Vernon Olsen RN - 10/21/2018 0:42 EDT Anesthesia/Transfusion History Family History of Anesthesia Reaction : No prior transfusion(s) Transfusion History : Prior anesthesia reaction Type of Anesthesia Reaction : Other: nausea and vomiting Family History of Anesthesia Reaction : None Vernon Olsen RN - 10/21/2018 0:42 EDT Functional Assessment Living Situation : Home Patient Lives With : Spouse WILLIAM Hx Falls Immediate/Within 3 Months : No Current Home Treatments : CPAP Vernon Olsen RN - 10/21/2018 0:42 EDT General Info Want Family/Rep/Phys Notified of Admit : No Emergency Contact #1 : Braxton Jimenez Emergency Contact #1 Emergency Contact #1 Relationship : Emergency Contact #2 : Vernon Emergency Contact #2 Emergency Contact #2 Relationship : Son Primary Language : Brazilian Communication Barrier : None Vernon Olsen RN - 10/21/2018 0:42 EDT Fall Risk Scales ABCs Fall Injury Risk Identification : Age ABC Fall Injury Risk : Moderate to high injury risk Injury Moderate to High Risk Interventions : Bed alarm on, Patient room close to nurses station THOMAS Hx Falls Immediate/Within 3 Months : No Thomas Secondary Diagnosis : Yes THOMAS Use of Ambulatory Aid : Bed rest/Nurse assist THOMAS IV Therapy or IV Access : Yes Thomas Gait/Transferring : Normal, bedrest, immobile Thomas Mental Status : Oriented to own ability Thomas Fall Risk Score : 35 THOMAS Fall Scale Risk Level : 25-45 Medium Risk [place] Fall Interventions : Adequate lighting, Assistive devices within reach, Bed in low position, Call device within reach, Fall prevention handout/education per facility policy, Frequent orientation to call device, Frequent orientation to surroundings, Hourly comfort/safety rounds, Non-slip footwear, Personal items within reach, Reinforced to call for assistance before getting out of bed, Room free of clutter/spills, Upper side-rails up, Wheels locked, Wires/Cords secured Barriers to Learning : None evident Learning Style Preferences Patient : Verbal explanation Fall Risk Scale Calc Temp : 0 Vernon Olsen RN - 10/21/2018 0:42 EDT Health Histories Smoking Status : Never (less than 100 in lifetime; none in last 30 days) Smokeless Tobacco Status : Never Vernon Olsen RN - 10/21/2018 0:42 EDT Social History (As Of: 10/21/2018 00:42:57 EDT) Tobacco: Smoking Status Never smoker. (Last Updated: 07/08/2017 07:41:27 EST by ISRA JONES RN) Alcohol: Alcohol Use History No. (Last Updated: 07/08/2017 07:41:33 EST by ISRA JONES RN) Substance Abuse: Drug Use Hx: No. Use in Last 12 Months: No. (Last Updated: 07/08/2017 07:41:39 EST by ISRA JONES RN) Height and Weight, Clinical Dosing Height Source : Stated Height Entry Format : [place] Height, Feet : 5 ft(Converted to: 152 [...] Body Mass Index : 38 kg/m2 (HI) [place] Body Weight : 45 kg Vernon Olsen RN - 10/21/2018 0:42 EDT Infectious Disease History Infectious Disease History : Chicken pox/Shingles, Measles, Mumps Fever/Chills Last 48 Hours : No Travel To Regions with Travel Advisories : No Travel Outside [place] Within Last 30 Days : No Contact With Traveler to Advisory Region : No Tuberculosis Symptoms : None Vernon Olsen RN - 10/21/2018 0:42 EDT Influenza Vaccine Asmt, Adult Previous Vaccines from Immunization Schedule : No qualifying data available. Influenza Immunization, Current Season : Yes Vernon Olsen RN - 10/21/2018 0:42 EDT Pneumococcal Vaccine Previous Vaccines from Immunization Schedule : No qualifying data available. Pneumonia Immunization Received : Yes Pneumonia Immunization Date : 01/09/2018 EDT Vernon Olsen RN - 10/21/2018 0:42 EDT Nutrition History Eating Poorly Due to Decreased Appetite : Yes Unplanned Weight Loss in Past 3-6 Months : No Malnutrition Screening Tool Total(mal) : 1 Malnutrition Screening Tool Risk Level : Patient not at risk Vernon Olsen RN - 10/21/2018 0:42 EDT Psychosocial History Currently in Unsafe Situation : No Tried to Harm Yourself in the Past? : No Thoughts of Harming/Killing Yourself : No Vernon Olsen RN - 10/21/2018 0:42 EDT Sleep Apnea Risk Assmt BiPAP/CPAP Ordered for Home Use : Yes Hx of Obstructive Sleep Apnea Diagnosis : Yes BiPAP/CPAP Used at Home : Yes Age over 50 Years Old : Yes Gender Male : No Vernon Olsen RN - 10/21/2018 0:42 EDT Valuables and Belongings Valuables and Belongings : Clothing Clothing : Common streetwear Clothing Disposition : With patient Vernon Olsen RN - 10/21/2018 0:42 EDT Electronically signed by [facility], [facility] Conversion Stained Glass Window Designer Cerner at 11/28/2022 5:45 PM CDT documented in this encounter Plan of Treatment Upcoming Encounters Date Type Department Care Team (Late st Contact Info) Description 08/23/2025 12:45 PM EST Office Visit [facility] Electrophysiology [address] [place] [address] [place] [address] [place] [address] [address] [place] [address] documented as of this encounter Visit Diagnoses Not on filedocumented in this encounter Care Teams Certified Dental Assistant Relationship Specialty Start Date End Date Alfred Cantu MD [address] [place] [address] PCP - General General Internal Medicine 08/29/22 [place] [address] [place] [address] [address] [place], [place] [id number] Chemist Water Purification Interventional Cardiology 08/29/22 [place] [address] [place] [address] [address] [place] [address] Chemist Water Purification Electrophysiology 05/19/24 documented as of this encounter
--- OUTSIDE RECORDS SUMMARY | 2025-02-18 10:44 | XMS_ITS | Encounter Summary ---
Author Organization [employer] ([place], [place], [place], [place]) Address [address] [place] [address] Care Team Providers Care Surveillance Camera Technician Name Role Phone Alfred Cantu MD Primary Care Provider [phone] Lyndsey Key MD Unavailable [phone] Vik Corcoran MD Unavailable Encounter Details Date Type Department Care Team (Late st Contact Info) Description 10/20/2018 Transcribed Document [facility] [place] [facility] [place] [address] ProviderRashard MD [address] [place] [address] Social History Tobacco Use Types Packs/Day [...] Rashard ProviderMD - 10/20/2018 11:50 PM CDT Patient: KATHY CARTER Age: 78 years Sex: Female : 1940 Associated Diagnoses: None Author: KENNETH OSBORN MD Basic Information Source of history: Self, Family member, Medical record. History limitation: None. Chief Complaint sob and cough Transfered from [facility] bec of CHF and severe Mitral reguargitation and for possible ICD. History of Present Illness Ms. Carter, T8 years old female with past medical history of hypertension, mitral valve regurg, asthma, who was transferred from [facility] because of CHFexacerbation and severe mitral regurg for possible ICD placement. Dr. Segundo accepted the pt. She had been admitted to [facility] for 3 days treated for pneumonia. She states that she was complaining of cough with clear sputum and shortness of breath and x-ray showed pneumonia. She states that over the past 4 months she has had several different treatments for community-acquired bronchitis/asthma exacernbation with steroids and azithromycin. During her admission at [facility] was given Zosyn, azithromycin and Levaquin. Levaquin has been discontinued. Seen by cardiology due to echo showing severe cardiomyopathy with ejection fraction of 25-30% and severe mitral regurgitation. Patient with known normal coronary arteries and normal right heart catheter in June 2017. Labs at other facility showed WBC of 14.6, hemoglobin 11.2, platelets 238. ABG showed pH of 7.37, PCO2 50.8, PO2 59.3 potassium 2.6. blood culture negative. Chest x-ray today showed slight worsening of the right basal air space disease Review of Systems Constitutional: No fever, No chills, No sweats. Eye: No double vision, No visual disturbances. Respiratory: Shortness of breath, Cough, Sputum production, No hemoptysis, No wheezing. Cardiovascular: Peripheral edema, No chest pain, No palpitations, No bradycardia, No tachycardia, No syncope. Gastrointestinal: Nausea, No vomiting, No diarrhea, No constipation, No abdominal pain. Genitourinary: No dysuria, No hematuria, No change in urine stream. Immunologic: No recurrent fevers, No recurrent infections. Musculoskeletal: No neck pain, No joint pain Back pain: Bilaterally. Integumentary: No rash, No pruritus, No petechiae. Neurologic: Alert and oriented X4, No confusion, No headache. Psychiatric: No anxiety, No depression. Health Status Current medications: No qualifying data available Histories Past medical history Anxiety Mitral regurg Hyperlipidemia Hypertension Asthma Past surgical history cholecystectomy Hysterectomy Family history: positive for heart disease Social history : she denies smoking, alcohol, or illicit drug use Physical Examination General: Alert and oriented, Mild distress, on BIPAP. Eye: Normal conjunctiva, Vision unchanged. HENT: Normocephalic, Normal hearing, Oral mucosa is moist. Neck: Supple, Non-tender. Respiratory: Respirations are non-labored, Breath sounds are equal, Symmetrical chest wall expansion. Cardiovascular: Normal rate, Regular rhythm, No murmur, No edema. Gastrointestinal: Soft, Non-tender, Non-distended, Normal bowel sounds. Musculoskeletal: Normal range of motion, No tenderness, No deformity. Integumentary: Warm, Moist, No pallor, No rash. Neurologic: Alert, Oriented, No focal deficits. Cognition and Speech: Oriented, Speech clear and coherent. Psychiatric: Cooperative, Appropriate mood & affect. Review / Management Results review: No qualifying data available. ECHO Report: Moderate biatrial enlargement, mildly dilated left ventricle, severely reduced left ventricular systolic function, visually estimated ejection fraction approximately 30% with segmental wall motion abnormality. Thickening and calcified aortic valve without Doppler evidence of aortic stenosis, mild aortic insufficiency. Severe mitral regurgitation, it is systolic flow reversal seen in the pulmonary vein. Moderate tricuspid regurgitation, tricuspid regurgitation jet velocity in is inadequate for calculation of the right ventricular systolic pressure. No significant pericardial effusion noted Impression and Plan Acute exacerbation of systolic heart failure Recent echo shows cardiomyopathy with ejection fraction of 25-30% She has severe mitral regurg Daily weight Strict I's and O's iv Lasix Currently she is on BiPAP will try to wean her to nasal cannula Chest x-ray Continue beta ina Start spironolactone Continue Thiago inhibitors Cardiology consult severe cardiomyopathy with Severe mitral regurgitation: per Records she has normal coronaries by cardiac catheter in June 2017. Echo report noted Resume losartan Consider Entresto continue beta ina Cardiology consult Community acquired pneumonia Continue Zosyn and azithromycin Sputum culture Pro-calcitonin History of asthma Resume home medication breathing treatment DVT prophylaxis, heparin Full code Records reviewed Chart reviewed Labs reviewed Discussed with the patient and her Time spent is 52 minutes Electronically signed by Israel Walls Conversion Or First Assist Registered Nurse Cerner at 11/28/2022 5:47 PM CDT documented in this encounter Plan of Treatment Upcoming Encounters Date Type Department Care Team (Late st Contact Info) Description 08/23/2025 12:45 PM EST Office Visit [facility] Electrophysiology [address] [place] [address] [place] [address] [place] [address] [address] [place] [id number] documented as of this encounter Visit Diagnoses Not on filedocumented in this encounter Care Teams Surveillance Camera Technician Relationship Specialty Start Date End Date Alfred Cantu MD [address] [place] [address] PCP - General General Internal Medicine 08/29/22 [place] [address] [place] [address] [address] [place] [id number] Assembly Machine Operator Interventional Cardiology 08/29/22 [place] [address] [place] [address] [address] [place], [place] [id number] Assembly Machine Operator Electrophysiology 05/19/24 documented as of this encounter
--- OUTSIDE RECORDS SUMMARY | 2025-02-18 10:44 | XMS_ITS | Encounter Summary ---
Author Organization [employer] ([place], [place], [place], [place]) Address [address] [place] [address] Care Team Providers Care Caustic Liquor Maker Name Role Phone Alfred Cantu MD Primary Care Provider [phone] Lyndsey Key MD Unavailable [phone] Vik Corcoran MD Unavailable Encounter Details Date Type Department Care Team (Late st Contact Info) Description 11/02/2018 Transcribed Document [facility] [place] Family Medicine [address] [place] [address] ProviderRashard MD [address] [place] [address] Social History Tobacco Use Types Packs/Day Years Used Date Smoking Tobacco: Never Assessed Comments Unknown Sex and Gender Information Value Date Recorded Sex Assigned at Not on file Legal Sex Female 1:15 PM CDT Gender Identity Not on file Sexual Orientation Not on file documented as of this encounter Miscellaneous Notes * Cerner Conversion Note - Historical ProviderMD - 11/02/2018 1:30 PM CDT Discharge Summary, PT Entered On: 11/02/2018 16:29 EDT Performed On: 11/02/2018 13:30 EDT by Demetria Ramirez Sole Molder Discharge Summary Discharge Summary Provider Notified : Nursing, Physical Therapy Reason for Discharge : Discharge order Discharged to, Therapy : Home, with home health Demetria Ramirez Sole Molder - 11/02/2018 16:27 EDT Discharge Summary Comment, PT : pt has discharge orders in from hospital to home with home health, per last PTx - pt modified independent for bed mobility and transfers, pt ambulated 150' with RWx and min A. PT agrees with written D/C summary JENNIE PETER, PT - 11/02/2018 16:29 EDT Short Term Goals Ambulation STG Grid Goal #1 Device : Walker, front wheel Distance : 375' Assist : Supervision or set-up Date to Meet : 10/31/2018 EDT Goal Status : Not met Comment : 10/24/18 Demetria Ramirez Sole Molder - 11/02/2018 16:27 EDT Skilled Nursing Goals Ambulation LTG Grid Goal #1 Device : None Distance : 375' Assist : Supervision or set-up Date to Meet : 11/07/2018 EDT Goal Status : Not met Comment : Revised 10/23/18 Demetria Ramirez Sole Molder - 11/02/2018 16:27 EDT Electronically signed by [facility] Conversion Ground Operations Superintendent Cerner at 11/28/2022 5:46 PM CDT documented in this encounter Plan of Treatment Upcoming Encounters Date Type Department Care Team (Late st Contact Info) Description 08/23/2025 12:45 PM EST Office Visit [facility] Electrophysiology [address] [place] [address] Vik Corcoran MD [address] [place] [address] [place] [address] documented as of this encounter Visit Diagnoses Not on filedocumented in this encounter Care Teams Caustic Liquor Maker Relationship Specialty Start Date End Date Alfred Cantu MD [address] [place] [address] PCP - General General Internal Medicine 08/29/22 Lyndsey Key MD [address] [place] [address] [address] [place] [address] Nurse Tech Interventional Cardiology 08/29/22 Vik Corcoran MD [address] [place] [address] [address] [place] [address] Nurse Tech Electrophysiology 05/19/24 documented as of this encounter
--- OUTSIDE RECORDS SUMMARY | 2025-02-18 10:44 | XMS_ITS | Encounter Summary ---
Author Organization [employer] ([place], [place], [place], [place]) Address [address] [place] [address] Care Team Providers Care Car Worker Name Role Phone Alfred Cantu MD Primary Care Provider [phone] Lyndsey Key MD Unavailable [phone] Vik Corcoran MD Unavailable Encounter Details Date Type Department Care Team (Late st Contact Info) Description 11/02/2018 Transcribed Document [facility] [place] [address] [place] [address] ProviderRashard MD [address] [place] [address] Social History Tobacco Use Types Packs/Day Years Used Date Smoking Tobacco: Never Assessed Comments Unknown Sex and Gender Information Value Date Recorded Sex Assigned at Not on file Legal Sex Female 1:15 PM CDT Gender Identity Not on file Sexual Orientation Not on file documented as of this encounter Miscellaneous Notes * Cerner Conversion Note - Rashard Gonzalez MD - 11/02/2018 1:53 PM CDT Patient Education Materials Follows: Cardiomyopathy, Adult Cardiomyopathy is a long-term (chronic) [...] Other treatments may include cardiac resynchronization therapy (PIT STEWARD) or a left ventricular assist device (LVAD). [...] to manage stress. General instructions ??? Take pzbz-fjd-ivipbml and prescription medicines only as told by [...] 10/10/2005 Document Revised: 03/25/2017 Document Reviewed: 01/27/2017 [employer] Interactive Patient Education ? 2017 [employer]. Emergency Medicine How to Take a Pulse Your pulse [...] 02/01/2004 Document Revised: 02/14/2017 Document Reviewed: 12/31/2016 Elsevier Interactive Patient Education ? 2017 [employer] Nutrition Heart-Healthy Eating Plan Many factors influence your [...] foods can I eat? Grains Breads, including Malian, white, serenity, wheat, raisin, rye, oatmeal, and Khmer. Tortillas that are neither fried nor made with lard or trans fat. Low-fat rolls, including hotdog and hamburger buns and Italian muffins. Biscuits. Muffins. Waffles. Pancakes. Light popcorn. [...] cheese. Whole milk cheeses, including blue (henry), Tipton Gary, Brie, Hayes, South African, Havarti, Mauritian, cheddar, Camembert, and [place]. Whole or 2% milk that is liquid, [...] that has suet, meat fat, or shortening. Devon butter, hydrogenated oils, palm oil, coconut oil, [...] 05/06/2009 Document Revised: 02/14/2017 Document Reviewed: 01/19/2015 [employer] Interactive Patient Education ? 2017 [employer] Preventive Medicine How to Take Your Blood Pressure HOW [...] 07/10/2009 Document Revised: 08/18/2015 Document Reviewed: 09/22/2014 [employer] Interactive Patient Education ? 2017 [employer] Pulmonary Medicine Incentive Spirometer An incentive spirometer is a [...] 12/08/2007 Document Revised: 04/21/2017 Document Reviewed: 03/06/2015 [employer] Interactive Patient Education ? 2016 [employer] Smoking Hazards Smoking cigarettes is extremely [...] contain harmful chemicals. FOR MORE INFORMATION ??? [place] Lung Association: www.lung.org ??? South [place] Cancer Society: www.cancer.org This information is not intended to replace advice given to you by your health care provider. Make sure you discuss any questions you have with your health care provider. Document Released: 09/04/2005 Document Revised: 11/18/2016 Document Reviewed: 01/17/2014 [employer] Interactive Patient Education ? 2017 [employer] Radiology Biventricular Pacemaker Implantation, Care After Introduction Refer [...] Follow these instructions at home: Medicines??? Take axxm-vgw-gklwmeo and prescription medicines only as told by [...] and water are not available, use hand surgical instrument repair specialist. ? Change your dressing as told by [...] radio towers. ??? Do notuse amateur ( [employer] ) radio equipment or electric ( arc [...] 01/02/2017 Document Reviewed: 04/21/2016 ? 2017 Elsevier documented in this encounter Plan of Treatment Upcoming Encounters Date Type Department Care Team (Late st Contact Info) Description 08/23/2025 12:45 PM EST Office Visit [facility] Electrophysiology [address] [place] [phone] Vik Corcoran MD [address] [facility] [address] [place] [address] documented as of this encounter Visit Diagnoses Not on filedocumented in this encounter Care Teams Car Worker Relationship Specialty Start Date End Date Alfred Cantu MD [address] [place] [address] PCP - General General Internal Medicine 08/29/22 Lyndsey Key MD [address] [place] [address] [address] Rotary Shear Operator Interventional Cardiology 08/29/22 Vik Corcoran MD [address] [place] [address] [id number] Rotary Shear Operator Electrophysiology 05/19/24 documented as of this encounter
--- OUTSIDE RECORDS SUMMARY | 2025-02-18 10:44 | XMS_ITS | Encounter Summary ---
Author Organization [employer] ([place], [place], [place], [place]) Address [address] [place] [address] Care Team Providers Care Bridge Repairer Name Role Phone Alfred Cantu MD Primary Care Provider [phone] Lyndsey Key MD Unavailable [phone] Vik Corcoran MD Unavailable Encounter Details Date Type Department Care Team (Late st Contact Info) Description 10/23/2018 Transcribed Document [facility] [place] Family Medicine [facility] [place] [address] ProviderRashard MD [address] [place] [address] Social History Tobacco Use Types Packs/Day Years Used Date Smoking Tobacco: Never Assessed Comments Unknown Sex and Gender Information Value Date Recorded Sex Assigned at Not on file Legal Sex Female 1:15 PM CDT Gender Identity Not on file Sexual Orientation Not on file documented as of this encounter Miscellaneous Notes * Cerner Conversion Note - Rashard ProviderMD - 10/23/2018 5:15 PM CDT Care Management Assessment/Plan Entered On: 10/23/2018 17:17 EDT Performed On: 10/23/2018 17:15 EDT by REGINA TERRY Sofa Inspector Care Management Note Anticipated Discharge Date : 10/23/2018 15:00 EDT Care Management Note : Continue to follow for discharge needs and arrangements, chart reviewed, admission day #3, transfer from SICU, currently on 2 liters O2/nebs, Ve=834, Cl=88, Mg=2.5, WBC=18.3, CXR=pending, on IV Solumedrol q6, PT/OT-will need reeval orders due to recent procedure, patient underwent a Bi-V-ICD placement today. Plan at discharge remains to return home with family support (+/- Home Health). CM will continue to follow. Care Management Note Report : CONNIE LIVE, RN - 10/22/18 13:28:57 improving chf. severe mitral regurg. nicm bipap/02 3L nc. zithromax. lasix iv q 8 hr. PT/OT consults. biv icd tomorrow. CONNIE LIVE, RN - 10/21/18 13:09:33 readmit risk: moderate 59. transfer from [facility]. acute excerbation systolic heart failure. ef 25-30%. severe mitral regurg. severe nicm. CAP. for biv icd today. bipap 50%/02 4-6L nc. zithromax po. zosyn iv. ca gluconate iv x 2. kcl 20meq x 1. na phos iv x 1. PT consult. spoke with Ms. Jimenez. explained role of case management. pt resides in [facility]. she is adl independent. drives car. has cane, walker & cpap provided by [employer] Information. no current home health or previous rehab stays. discussed dc planning rehab vs home health depending on progress. pt has medicare primary. she advises she has [employer] 2nd insurance. notified Aubrie, pt advocate for inclusion in records. spoke with bedside RNMagda. Documentation Status Complete : Yes REGINA TERRY, Sofa Inspector - 10/23/2018 17:15 EDT documented in this encounter Plan of Treatment Upcoming Encounters Date Type Department Care Team (Late st Contact Info) Description 08/23/2025 12:45 PM EST Office Visit [facility] Electrophysiology [address] [place] [address] Vik Corcoran MD [address] [place] [address] [address] [place] [address] documented as of this encounter Visit Diagnoses Not on filedocumented in this encounter Care Teams Bridge Repairer Relationship Specialty Start Date End Date Alfred Cantu MD [address] [place] [address] PCP - General General Internal Medicine 08/29/22 Lyndsey Key MD [address] [facility] [address] [place] [address] Fusion Juncture Grinder Interventional Cardiology 08/29/22 Vik Corcoran MD [address] [facility] [address] [place] [address] Fusion Juncture Grinder Electrophysiology 05/19/24 documented as of this encounter
--- OUTSIDE RECORDS SUMMARY | 2025-02-18 10:44 | XMS_ITS | Encounter Summary ---
Author Organization [employer] ([place], [place], [place], [place]) Address [address] [place] [address] Care Team Providers Care Bread Packer Name Role Phone Alfred Cantu MD Primary Care Provider [phone] Lyndsey Key MD Unavailable [phone] Vik Corcoran MD Unavailable Encounter Details Date Type Department Care Team (Late st Contact Info) Description 11/02/2018 Transcribed Document [facility] [place] [facility] [place] [address] ProviderRashard MD [address] [place] [address] Social History Tobacco Use Types Packs/Day Years Used Date Smoking Tobacco: Never Assessed Comments Unknown Sex and Gender Information Value Date Recorded Sex Assigned at Not on file Legal Sex Female 1:15 PM CDT Gender Identity Not on file Sexual Orientation Not on file documented as of this encounter Miscellaneous Notes * Cerner Conversion Note - Rashard ProviderMD - 11/02/2018 8:35 AM CDT Patient: KATHY CARTER Age: 78 Years Sex: Female : 1940 Subjective Chief Complaint: Very fatigued. Physical Exam (1, 6, 12) NAD No JVD Oropharynx moist Decreased BS over bases regular, nl S1, S2, 3/6 HSM +BS,soft no edema Vitals & Measurements T: 36.5 ??C TMIN: 36.3 ??C TMAX: 36.7 ??C HR: 69(Monitored) RR: 16 BP: 142/69 BP: 132/70(Sitting) BP: 130/72(Standing) BP: 138/70(Supine) SpO2: 97% WT: 84.63 kg Intake & Output Intake & Output Totals Last 24 Hours (7a-7a) Intake (5 Events) Continuous Infusions (400 mL) Oral Fluids (240 mL) Output (2 Events) Urine Voided (Volume) (300 mL) Input Total: 640 mL Output Total: 300 mL Balance: 340 mL Assessment/Plan 1. 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 Acute systolic heart failure 3. Severe MR 4. Acute pneumonia,on IV antibiotics 5. Severe Leukocytosis 6. Severe hyponatremia 11/02/2018 [employer] to interrogate device to confirm NSR PT/OT consulted again WBC continue to decrease 17K Continue Amiodarone 400mg BID Continue Eliquis 5mg BID Fu in office in 2 weeks 11/01/2018 Back in SR Cancel PETER/CV WBC [...] RT_Q6H Eliquis, 5 mg= 1 Tab, Oral, [id number] magnesium sulfate, 2 Gram= 50 mL, IV Piggyback, Q2H, PRN magnesium sulfate, 2 Gram= 50 mL, IV Piggyback, Daily, PRN Mucinex, 1200 mg= 2 Tab, Oral, BID nystatin, [id number] Units= 10 mL, Swish and Swallow , [...] mg= 2 mL, Nebulized Inhalation , BID Sodium Chloride 0.9% intravenous solution 1,000 mL, 1000 mL, IntraVENous sodium phosphate sodium phosphate Tessalon, 100 mg= [...] oral tablet, 500 mg= 1 Tab, Oral, [id number] omeprazole 20 mg oral delayed release capsule, 40 mg= 2 Cap, Oral, Daily ProAir HFA 90 mcg/inh inhalation aerosol, 2 Puff, Inhalation, QID, PRN Singulair 10 mg oral tablet, 10 mg= 1 Tab, Oral, Daily Lab Results Blood Gases (Current Encounter/Past 24 Hours) No Blood Gas Results Found (Past 24 Hours) Electrolytes(BMP) Results (Current Encounter/Past 24 Hours) Sodium Level 129 mmol/L LOW 11/02/2018 07:16 Potassium Level 4.9 mmol/L 11/01/2018 05:02 Chloride Level 88 mmol/L LOW 11/01/2018 05:02 Carbon Dioxide Level 27 mmol/L 11/01/2018 05:02 Anion Gap 11 11/01/2018 05:02 Blood Urea Nitrogen 27 mg/dL HI 11/01/2018 05:02 Glucose Level 89 mg/dL 11/01/2018 05:02 Calcium Level 8.5 mg/dL 11/01/2018 05:02 Creatinine Level 0.90 mg/dL 11/01/2018 05:02 Cardiac Markers (Current Encounter/Past 24 Hours) No Cardiac Marker Results Found (Past 24 Hours) CBC Results (Current Encounter/Past 24 Hours) WBC 17.5 K/uL HI 11/02/2018 07:31 Hct 27.8 % LOW 11/02/2018 07:31 Hgb 9.0 g/dL LOW 11/02/2018 07:31 Platelet Count 128 K/uL LOW 11/02/2018 07:31 CMP Results (Current Encounter/Past 24 Hours) eGFR NonAfrican >60 mL/min/1.73m2 11/01/2018 05:03 eGFR >60 mL/min/1.73m2 11/01/2018 05:02 Creatinine Level 0.90 mg/dL 11/01/2018 05:02 Bun/Creatinine 30.0 ME 11/01/2018 05:02 Sodium Level 129 mmol/L LOW 11/02/2018 07:16 Potassium Level 4.9 mmol/L 11/01/2018 05:02 Chloride Level 88 mmol/L LOW 11/01/2018 05:02 Carbon Dioxide Level 27 mmol/L 11/01/2018 05:02 Anion Gap 11 11/01/2018 05:02 Blood Urea Nitrogen 27 mg/dL ME 11/01/2018 05:02 Glucose Level 89 mg/dL 11/01/2018 05:02 Calcium Level 8.5 mg/dL 11/01/2018 05:02 Coagulation Results (Current Encounter/Past 24 Hours) No Coagulation Results Found (Past 24 Hours) Creatinine Clearance (Current Encounter/Past 24 Hours) Creatinine Level 0.90 mg/dL 11/01/2018 05:02 Bun/Creatinine 30.0 ME 11/01/2018 05:02 Estimated Creatinine Clearance 38.20 mL/Min 11/01/2018 05:02 documented in this encounter Plan of Treatment Upcoming Encounters Date Type Department Care Team (Late st Contact Info) Description 08/23/2025 12:45 PM EST Office Visit [address] [address] Vik Corcoran MD [address] [place] [address] [address] [place] [address] documented as of this encounter Visit Diagnoses Not on filedocumented in this encounter Care Teams Bread Packer Relationship Specialty Start Date End Date Alfred Cantu MD [address] [place] [phone] PCP - General General Internal Medicine 08/29/22 Lyndsey Key MD [address] [facility] [address] [place] [id number] Band Builder Interventional Cardiology 08/29/22 Vik Corcoran MD [address] [facility] [address] [place] [address] Band Builder Electrophysiology 05/19/24 documented as of this encounter
--- OUTSIDE RECORDS SUMMARY | 2025-02-18 10:44 | XMS_ITS | Encounter Summary ---
Author Organization [employer] ([place], [place], [place], [place]) Address [address] [place] [address] Care Team Providers Care Nib Inspector Name Role Phone Alfred Cantu MD Primary Care Provider [phone] Lyndsey Key MD Unavailable [phone] Vik Corcoran MD Unavailable Encounter Details Date Type Department Care Team (Late st Contact Info) Description 10/23/2018 Transcribed Document [facility] [place] [address] [place] [address] ProviderRashard MD [address] [place] [address] Social History Tobacco Use Types Packs/Day Years Used Date Smoking Tobacco: Never Assessed Comments Unknown Sex and Gender Information Value Date Recorded Sex Assigned at Not on file Legal Sex Female 1:15 PM CDT Gender Identity Not on file Sexual Orientation Not on file documented as of this encounter Miscellaneous Notes * Cerner Conversion Note - Rashard Gonzalez MD - 10/23/2018 5:04 PM CDT Patient: KATHY CARTER Age: 78 Years Sex: Female : 1940 *Operation 1. Left upper extremity venogram. 2. Biventricular implantable cardioverter-defibrillator implant. 3. Ventricular defibrillation threshold testing Attending solar sales advisor: Esteban Euceda MD,[facility] PROCEDURE INDICATION: Severe non-ischemic cardiomyopathy with left ventricular ejection fraction of less than/equal to 35%,on optimal medical therapy for more than one year, NYHA class III, left bundle branch block with QRS more than 150 msec (class I indication). Baseline EKG: The rhythm was normal sinus with left bundle branch block. PROCEDURE SUMMARY: After written witnessed informed consent was obtained for the procedure and sedation from the patient and her family, the patient was transferred to the EP laboratory. The patient was in the fasting state. A grounding pad was placed. Self-adhesive anterior/posterior defibrillation pads were applied. Blood pressure was monitored. 1. The left infraclavicular region was clipped, prepped, and draped in the usual sterile fashion. 2. Local anesthesia with lidocaine 1% was given, an incision was made and hemostasis was obtained. 3. A subcutaneous left infraclavicular pocket was constructed. It was then flushed using saline solution. 4. Left axillary vein access was obtained using the modified Seldinger technique. 5. Using fluoroscopic guidance, right ventricular lead was inserted and positioned at the apical RV septum. Coronary sinus was then cannulated using MB2 outer sheath and AL2 guide catheter. Occlusive coronary sinus angiography was obtained and an adequate lateral coronary venous branch was selected for placement of epicardial LV lead. There was no phrenic stim at 10 V. The right atrial lead was then inserted and positioned at the lateral appendage. The leads were secured with anchoring sleeves and nonabsorbable sutures. 6. A BIV-CD (Kontagent MRI Quad, model number [id number], serial number [id number]) was attached to the leads. The whole system was placed in TYRX antibiotic envelope and implanted in the pocket. 7. Two-way communication was established between the device and its research programmer. The device was interrogated and its parameters recorded. Telemetered electrograms and pacing and sensing thresholds were measured. 8. Ventricular defibrillation threshold testing was performed using device- based arrhythmia conversion. The minimum effective energy was 14 Joules (102 Ohms). The energy safety margin was satisfactory. 9. Hemostasis was obtained with electrocautery. The pocket was flushed with vancomycin. The wound was closed in three layers. The skin was approximated with subcuticular sutures and Steri-Strips. 10. Lead parameters: a. Right atrial lead: Model number 5076, 45 cm, serial number [id number], P wave 2.0 mV, impedance 860 ohms, capture threshold 1.0 V at 0.5 msec. b. Right ventricular lead: Model number 6935, 62 cm, Sprint Quattro, serial number [id number], R-wave 12 mV, impedance 1320 ohms, capture threshold 0.9 V at 0.5 msec. c. Left ventricular lead: Performa S, model number 4598, 88 cm, serial number [id number], impedance 1166 ohms, capture threshold 1.0 V at 0.5 msec. SEDATION:Administered by general anesthesia. COMPLICATIONS: None DISCHARGE AND FOLLOWUP: The patient left the EP laboratory in stable condition. A stat portable chest x-ray and PA and lateral chest x-ray for tomorrow morning were ordered. SUMMARY: 1. Successful biventricular ICD implant. 2. The pacing and sensing threshold were satisfactory. 3. Satisfactory safety margin for ventricular defibrillation. Thank you so much for allowing us to participate in the care of this patient. Please do not hesitate to call us with any questions. documented in this encounter Plan of Treatment Upcoming Encounters Date Type Department Care Team (Late st Contact Info) Description 08/23/2025 12:45 PM EST Office Visit [facility] Electrophysiology [address] [place] [address] [place] [address] [place] [address] [address] [place] [phone] documented as of this encounter Visit Diagnoses Not on filedocumented in this encounter Care Teams Nib Inspector Relationship Specialty Start Date End Date Alfred Cantu MD [address] [place] [address] PCP - General General Internal Medicine 08/29/22 Lyndsey Key MD [address] [facility] [address] [place] [address] Database Marketing Specialist Interventional Cardiology 08/29/22 Vik Corcoran MD [address] [facility] [place] [address] Database Marketing Specialist Electrophysiology 05/19/24 documented as of this encounter
--- OUTSIDE RECORDS SUMMARY | 2025-02-18 10:44 | XMS_ITS | Clinical Summary ---
Author Organization Healthcare Address [address] [place] [address] Care Team Providers Care Rough And Truing Machine Operator Name Role Phone Alfred Cantu MD Primary Care Provider [phone] Allergies Active Allergy Reactions Criticality Noted Date Comments Latex Rash Medium 03/12/2021 Levofloxacin Unknown - Patient st ates they do not know rxn details Low 03/12/2021 Sulfa Drugs Hives,Nausea Medium 09/29/2013 Medications amLODIPine (Norvasc) 2.5 MG tablet Take 1 tablet (2.5 mg) by mouth 1 (one) time each day. 3 Active carvedilol (Coreg) 25 MG tablet Take 1 tablet (25 mg) by mouth 2 (two) times a day. 3 Active cyclobenzaprine (Flexeril) 5 MG tablet Take 1 tablet (5 mg) by mouth at night if needed. 2 Active diclofenac (Voltaren) 75 MG EC tablet 3 Active irbesartan (Avapro) 150 MG tablet TAKE 1 TABLET BY MOUTH ONCE DAILY FOR BLOOD PRESSURE 3 Active omeprazole OTC (PriLOSEC OTC) 20 MG EC tablet Take 1 tablet (20 mg) by mouth 1 (one) time each day. 7 Active potassium chloride CR (Klor-Con M20) 20 MEQ ER tablet Take 1 tablet (20 mEq) by mouth 4 (four) times a day. 3 Active pregabalin (Lyrica) 50 MG capsule Take 1 capsule (50 mg) by mouth 2 (two) times a day. 60 capsule 1 3 Active Additional Information Patient not taking.Reported on 08/07/2023 budesonide EC (Entocort EC) 3 MG 24 hr capsule TAKE 3 BY MOUTH ONCE DAILY AT BEDTIME 3 Active diazePAM (Valium) 5 MG tablet Take 1 tablet (5 mg) by mouth 3 (three) times a day if needed. Active Fluticasone Furoate-Vilante rol (Breo Ellipta) 200-25 MCG/ACT aerosol powder ONE PUFF DAILY 9 Active fluticasone-rob meterol (Advair Diskus) 500-50 MCG/ACT diskus inhaler Inhale 1 puff twice a day. Active Trelegy Ellipta 100-62.5-25 MCG/ACT aerosol powder INHALE 1 PUFF BY MOUTH ONCE DAILY RINSE MOUTH AFTER EACH USE 3 Active diclofenac (Voltaren) 1 % topical gel APPLY 4 GRAMS TOPICALLY 4 TIMES DAILY NEEDED 3 Active montelukast (Singulair) 10 MG tablet 8 Active nitrofurantoin, macrocrystal-mo nohydrate, (Macrobid) 100 MG capsule TAKE 1 CAPSULE BY MOUTH TWICE DAILY WITH MEALS FOR 7 DAYS 3 Active mometasone (Elocon) 0.1 % cream 8 Active Umeclidinium Sandstone (Incruse Ellipta) 62.5 MCG/ACT aerosol powder Inhale 1 puff. 9 Active TRIAMTERENE-HCT Z PO 4 Active Turmeric 500 MG capsule 8 Active valACYclovir (Valtrex) 1 g tablet Take 1 tablet (1,000 mg) by mouth 3 (three) times a day. for 7 days 3 Active albuterol (ProAir HFA) 108 (90 Base) MCG/ACT inhaler 1-2 puffs Every 4 (four) to 6 (six) hours if needed. 9 Active Aspirin 81 MG capsule 8 Active carvedilol (Coreg) 25 MG tablet 4 Active amiodarone (Pacerone) 200 MG tablet TAKE 1/2 (ONE-HALF) TABLET BY MOUTH ONCE DAILY FOR 90 DAYS 3 Active LOSARTAN POTASSIUM PO 4 Active Active Problems Problem Noted Date Diagnosed Date Sacral pain 09/18/2023 Immunizations Immunization Administration Dates Next Due Influenza, seasonal, injectable 06/04/2014,05/11,08/11/2012 Pneumococcal Conjugate PCV 13 09/03/2017 Pneumococcal Polysaccharide PPV23 08/11/2012,08/2010 Family History Medical History Relation Name Comments Leukemia Father Conversions - Other Mother Old age Allergy (severe) Other 1 Allergy (severe) Other 2 Asthma Other 3 Brain cancer Sister Chronic bronchitis Son 1 Sinusitis Son 2 Relation Name Status Comments Father Mother Other 1 Other 2 Other 3 Sister Son 1 Son 2 Social History Tobacco Use Types Packs/Day Years Used Date Smoking Tobacco: Never Smokeless Tobacco: Never Alcohol Use Standard Drinks/Week Comments Never 0 (1 standard drink = 0.6 oz pur e alcohol) Comments Unknown Sex and Gender Information Value Date Recorded Sex Assigned at Not on file Legal Sex Female 7:35 PM EDT Gender Identity Not on file Sexual Orientation Not on file Last Filed Vital Signs Vital Sign Reading Time Taken Comments Blood Pressure 162/92 09/18/2023 2:16 PM EST Pulse 67 09/18/2023 2:16 PM EST Temperature 36.4 C (97.5 F) 09/18/2023 2:16 PM EST Respiratory Rate 16 09/18/2023 2:16 PM EST Oxygen Saturation 98% 08/07/2023 11:49 AM EST Inhaled Oxygen Concentration - - Weight 81.6 kg (180 lb) 09/18/2023 2:16 PM EST Height 152.4 cm (5') 09/18/2023 2:16 PM EST Body Mass Index 35.15 09/18/2023 2:16 PM EST Plan of Treatment Health Maintenance Due Date Last Done Comments [facility]-Bone Density Scan 1940 [facility]-Depression Screening 1940 [facility]-Medicare Annual Wellness (AWV) 1940 [facility]-/Child/Adol SDOH Screenings 1940 [facility]- SDOH Screenings 1960 [facility]-Adult SDOH Screenings 1958 [facility]-Zoster Vaccines (1 of 2) 1992 [facility]-RSV Vaccine: 60+ Years or (1 - 1-dose 75+ series) 2017 [id number] Vaccine (3 - 2023- season) 2024 10/12/2020, 09/14/2020 [facility]-Influenza Vaccine (#1) 04/11/202506/04, 05/11/2013, 08/11/2012 [facility]-DTaP,Tdap,and Td Vaccines (2 - Td or Tdap) 09/04/2033 09/04/2023 [facility]-Pneumococcal Vaccine: 50+ Years Completed 09/03/2017, 08/11/2012, 08/11/2010 [facility]-Obesity Intervention Completed 024, 08/07/2023, 07/31/2023, Additional history exists HPV Vaccines Aged Out No longer eligi ble based on patient's age to complete this topic [facility]-HIB Vaccines Aged Out No longer e ligible based on patient's age to complete this topic [facility]-Hepatitis A Vaccines Aged Out No longer eligible based on patient's age to complete this topic [facility]-IPV Vaccines Aged Out No longer e ligible based on patient's age to complete this topic [facility]Y-Rotavirus Vaccines Aged Out No lo nger eligible based on patient's age to complete this topic Insurance MEDICARE AETNA Care Teams Rough And Truing Machine Operator Relationship Specialty Start Date End Date Alfred Cantu MD [facility] [address] [place] [phone] PCP - General 12/22/20
--- OUTSIDE RECORDS SUMMARY | 2025-02-18 10:44 | XMS_ITS | Encounter Summary ---
Author Organization [employer] ([place], [place], [place], [place]) Address [address] [place] [address] Care Team Providers Care Cold Roll Inspector Name Role Phone Alfred Cantu MD Primary Care Provider [phone] Lyndsey Key MD Unavailable Vik Cocroran MD Unavailable Encounter Details Date Type Department Care Team (Late st Contact Info) Description 10/23/2018 Transcribed Document [facility] [place] Family [place] [facility] [place] [address] ProviderRashard MD [address] [place] [address] Social History Tobacco Use Types Packs/Day Years Used Date Smoking Tobacco: Never Assessed Comments Unknown Sex and Gender Information Value Date Recorded Sex Assigned at Not on file Legal Sex Female 1:15 PM CDT Gender Identity Not on file Sexual Orientation Not on file documented as of this encounter Miscellaneous Notes * Cerner Conversion Note - Rashard ProviderMD - 10/23/2018 5:00 AM CDT Chart Check - Review Order Profile Entered On: 10/23/2018 4:46 EDT Performed On: 10/23/2018 5:00 EDT by Alba Smallwood Rn Chart Check Chart Reviewed Date and Time : 10/23/2018 4:46 EDT Powerplans Initiated/Discontinued as Appropriate : Yes All Active Orders Reviewed : Yes Alba Smallwood Rn - 10/23/2018 4:46 EDT documented in this encounter Plan of Treatment Upcoming Encounters Date Type Department Care Team (Late st Contact Info) Description 08/23/2025 12:45 PM EST Office Visit [facility] Electrophysiology [address] [place] [phone] [place] [address] [place] [address] [address] [place] [address] documented as of this encounter Visit Diagnoses Not on filedocumented in this encounter Care Teams Cold Roll Inspector Relationship Specialty Start Date End Date Alfred Cantu MD [address] [place] [address] PCP - General General Internal Medicine 08/29/22 [place] [address] [place] [address] [address] [place] [address] Test Conductor Interventional Cardiology 08/29/22 [place] [address] [place] [address] [address] [place] [address] Test Conductor Electrophysiology 05/19/24 documented as of this encounter
--- OUTSIDE RECORDS SUMMARY | 2025-02-18 10:44 | XMS_ITS | Encounter Summary ---
Author Organization [employer] ([place], [place], [place], [place]) Address [address] [place] [address] Care Team Providers Care University Controller Name Role Phone Alfred Cantu MD Primary Care Provider [phone] Lyndsey Key MD Unavailable [phone] Vik Corcoran MD Unavailable Encounter Details Date Type Department Care Team (Late st Contact Info) Description 11/11/2018 Transcribed Document [facility] [place] [address] ProviderRashard MD [address] [place] [address] Social History Tobacco Use Types Packs/Day Years Used Date Smoking Tobacco: Never Assessed Comments Unknown Sex and Gender Information Value Date Recorded Sex Assigned at Not on file Legal Sex Female 1:15 PM CDT Gender Identity Not on file Sexual Orientation Not on file documented as of this encounter Miscellaneous Notes * Cerner Conversion Note - Rashard ProviderMD - 11/11/2018 4:05 PM CDT Post Visit Phone Call Entered On: 11/11/2018 16:06 EDT Performed On: 11/11/2018 16:05 EDT by Carissa Massey Rn Post Visit Phone Call Post Visit Phone Call History : First call, Second call, Third call, No answer, Other: mailbox full and cannot accept new messages Carissa Massey Rn - 11/11/2018 16:05 EDT documented in this encounter Plan of Treatment Upcoming Encounters Date Type Department Care Team (Late st Contact Info) Description 08/23/2025 12:45 PM EST Office Visit [facility] Electrophysiology [address] [place] [phone] [place] [address] [place] [address] [address] [place] [phone] documented as of this encounter Visit Diagnoses Not on filedocumented in this encounter Care Teams University Controller Relationship Specialty Start Date End Date Alfred Cantu MD [address] [place] [address] PCP - General General Internal Medicine 08/29/22 Lyndsey Key MD [address] [place] [address] [address] [place] [phone] Nanotechnologist Interventional Cardiology 08/29/22 Vik Corcoran MD [address] [place] [address] [address] Nanotechnologist Electrophysiology 05/19/24 documented as of this encounter
--- OUTSIDE RECORDS SUMMARY | 2025-02-18 10:44 | XMS_ITS | Encounter Summary ---
Author Organization [email or web address] ([place], [place], [place], [place]) Address [address] [place] [address] Care Team Providers Care Iron Launder Operator Name Role Phone Alfred Cantu MD Primary Care Provider [phone] Lyndsey Key MD Unavailable [phone] Vik Corcoran MD Unavailable Encounter Details Date Type Department Care Team (Late st Contact Info) Description 11/02/2018 Transcribed Document [facility] [place] [facility] [place] [address] ProviderRashard MD [address] [place] [address] Social History Tobacco Use Types Packs/Day Years Used Date Smoking Tobacco: Never Assessed Comments Unknown Sex and Gender Information Value Date Recorded Sex Assigned at Not on file Legal Sex Female 1:15 PM CDT Gender Identity Not on file Sexual Orientation Not on file documented as of this encounter Miscellaneous Notes * Cerner Conversion Note - Historical ProviderMD - 11/02/2018 5:00 AM CDT Chart Check - Review Order Profile Entered On: 11/02/2018 5:28 EDT Performed On: 11/02/2018 5:00 EDT by Ashu Ross, Rn Chart Check All Active Orders Reviewed : Yes Ashu Ross, Rn - 11/02/2018 5:28 EDT Electronically signed by Kavita [facility] Conversion Project Systems Engineer Cerner at 11/28/2022 5:44 PM CDT documented in this encounter Plan of Treatment Upcoming Encounters Date Type Department Care Team (Late st Contact Info) Description 08/23/2025 12:45 PM EST Office Visit [facility] Electrophysiology [address] [place] [phone] Vik Corcoran MD [address] [place] [address] [address] [place] [address] documented as of this encounter Visit Diagnoses Not on filedocumented in this encounter Care Teams Iron Launder Operator Relationship Specialty Start Date End Date Alfred Cantu MD [address] [place] [address] PCP - General General Internal Medicine 08/29/22 Lyndsey Key MD [address] [place] [address] [address] Core Feeder Interventional Cardiology 08/29/22 Vik Corcoran MD [address] [place] [address] [address] Core Feeder Electrophysiology 05/19/24 documented as of this encounter
--- OUTSIDE RECORDS SUMMARY | 2025-02-18 10:44 | XMS_ITS | Encounter Summary ---
Author Organization [employer] ([place], [place], [place], [place]) Address [address] [place] [address] Care Team Providers Care Teller Coordinator Name Role Phone Alfred Cantu MD Primary Care Provider [phone] Lyndsey Key MD Unavailable [phone] Vik Corcoran MD Unavailable Encounter Details Date Type Department Care Team (Late st Contact Info) Description 11/04/2018 Transcribed Document [facility] [place] [facility] [place] [address] ProviderRashard MD [address] [place] [address] Social History Tobacco Use Types Packs/Day Years Used Date Smoking Tobacco: Never Assessed Comments Unknown Sex and Gender Information Value Date Recorded Sex Assigned at Not on file Legal Sex Female 1:15 PM CDT Gender Identity Not on file Sexual Orientation Not on file documented as of this encounter Miscellaneous Notes * Cerner Conversion Note - Rashard ProviderMD - 11/04/2018 2:50 PM CDT Post Visit Phone Call Entered On: 11/04/2018 14:51 EDT Performed On: 11/04/2018 14:50 EDT by DAMIAN AMEZQUITA, BRANDEE Post Visit Phone Call Post Visit Phone Call History : First call, No answer, Other: mailbox full and cannot accept new messages DAMIAN AMEQZUITA RN - 11/04/2018 14:50 EDT documented in this encounter Plan of Treatment Upcoming Encounters Date Type Department Care Team (Late st Contact Info) Description 08/23/2025 12:45 PM EST Office Visit [facility] Electrophysiology [address] [place] [phone] [place] [address] [place] [address] [address] [place], [place] [phone] documented as of this encounter Visit Diagnoses Not on filedocumented in this encounter Care Teams Teller Coordinator Relationship Specialty Start Date End Date Alfred Cantu MD [address] [place] [address] PCP - General General Internal Medicine 08/29/22 [place] [address] [place] [address] [address] [place] [address] Porter Baggage Interventional Cardiology 08/29/22 Vik Corcoran MD [address] [place] [address] [address] [place], [place] [id number] Porter [employer]gage Electrophysiology 05/19/24 documented as of this encounter
--- OUTSIDE RECORDS SUMMARY | 2025-02-18 10:44 | XMS_ITS | Encounter Summary ---
Author Organization [employer] ([place], [place], [place], [place]) Address [address] [place] [address] Care Team Providers Care Site Lead Name Role Phone Alfred Castillo MD Primary Care Provider [phone] Lyndsey Key MD Unavailable [phone] Vik Corcoran MD Unavailable Encounter Details Date Type Department Care Team (Late st Contact Info) Description 11/03/[address] [facility] [place] [facility] [place] [address] ProviderRashard MD [address] [place] [address] Social History Tobacco Use Types Packs/Day Years Used Date Smoking Tobacco: Never Assessed Comments Unknown Sex and Gender Information Value Date Recorded Sex Assigned at Not on file Legal Sex Female 1:15 PM CDT Gender Identity Not on file Sexual Orientation Not on file documented as of this encounter Miscellaneous Notes * Cerner Conversion Note - Rashard ProviderMD - 11/03/2018 9:26 AM CDT [address] , [place] [address] Patient Copy Patient Information: Name: KATHY JIMENEZ Current Date: 11/03/2018 09:26:44 : 1940 Patient Address: [address] [place], [place] [address]J[place] [address] Patient Attending Physician: CARMELLA MEI MD-INT Primary Care Provider: HARPREETY, NOT LISTED Primary Care Provider Phone: Discharge Diagnosis: Weight on Admission: 194 lb, 1 oz Weight at Discharge: 186 lb, 3 oz Comment: Follow-up Instructions: With: Address: When: ALFRED CASTILLO [address] [place], [place] [id number] Business (1) Within 1 week Comments: The office is closed today until 2:00 PM this Friday. Please call to make a 1 week follow-up appointment and discuss 3-[address] scan. Also discuss antibiotic therapy. With: Address: When: KASH BUTTS [address] [facility], [address] [place] [address] Business (1) 11:00 AM Comments: Bring Ins Card, Photo ID, Ins Co-pay Bring discharge instructions with you Call for follow up appointment Return with blood work With: Address: When: CLRAE LIVINGSTON [address] [facility], [address] [place], [place] [id number] Business (1) Within As needed Comments: Please call to make a follow-up appointment IF you are unable to get in with Dr. Castillo within 1 week. With: Address: When: NAZANIN NAVA [address] [place] [address]., [address] [place] [address] Business (1) 9:00 AM Comments: [...] Medical Equipment for Home Use: [facility] for bedside commode and nebulizer [phone] Home Health Services: [facility] [phone] Immunizations Documented During Stay: No Immunizations Found [...] Discharge Instructions (if any): Final Medication List: [facility], [place] [address], [phone] amiodarone (amiodarone 200 mg oral tablet) 2 [...] Follow these instructions at home: Medicines??? Take jimo-uij-ldmwdor and prescription medicines only as told by [...] and water are not available, use hand statistical methods professor. ? Change your dressing as told by [...] radio towers. ??? Do notuse amateur ( [employer] ) radio equipment or electric [...] 12/08/2007 Document Revised: 04/21/2017 Document Reviewed: 03/06/2015 [employer] Interactive Patient Education ? 2017 [employer]. Smoking Hazards Smoking cigarettes is extremely [...] contain harmful chemicals. FOR MORE INFORMATION ??? [place] Lung Association: www.lung.org ??? [place] Cancer Society: www.cancer.org This information is not intended to replace advice given to you by your health care provider. Make sure you discuss any questions you have with your health care provider. Document Released: 09/04/2005 Document Revised: 11/18/2016 Document Reviewed: 01/17/2014 [employer] Interactive Patient Education ? 2017 [employer]. Heart-Healthy Eating Plan Many factors influence your [...] foods can I eat? Grains Breads, including German, white, serenity, wheat, raisin, rye, oatmeal, and Kinyarwanda. Tortillas that are neither fried nor made with lard or trans fat. Low-fat rolls, including hotdog and hamburger buns and Niuean muffins. Biscuits. Muffins. Waffles. Pancakes. Light popcorn. Whole-grain cereals. Flatbread. [place] toast. Pretzels. Breadsticks. Rusks. Low-fat snacks and [...] cheese. Whole milk cheeses, including blue (henry), Mcdowell Gary, Brie, Hayes, Pakistani, Havarti, North Korean, cheddar, Camembert, and [place]. Whole or 2% milk that is liquid, [...] that has suet, meat fat, or shortening. [place] butter, hydrogenated oils, palm oil, coconut oil, [...] 05/06/2009 Document Revised: 02/14/2017 Document Reviewed: 01/19/2015 [employer] Interactive Patient Education ? 2017 [employer]. How to Take a Pulse Your [...] 02/01/2004 Document Revised: 02/14/2017 Document Reviewed: 12/31/2016 [employer] Interactive Patient Education ? 2017 [employer]. How to Take Your Blood Pressure [...] 09/22/2014 Elsevier Interactive Patient Education ? 2017 [employer]. Cardiomyopathy, Adult Cardiomyopathy is a long-term [...] Other treatments may include cardiac resynchronization therapy (WATER RESOURCE AGENT) or a left ventricular assist device (LVAD). [...] to manage stress. General instructions ??? Take fmwk-gnb-kpckcvg and prescription medicines only as told by [...] 10/10/2005 Document Revised: 03/25/2017 Document Reviewed: 01/27/2017 [employer] Interactive Patient Education ? 2017 [employer]. Medication Leaflets: carvedilol (PRABHJOT ve dil ole) [...] may report side effects to FDA at 5-146-PXA-0051. What other drugs will affect carvedilol? Other drugs may interact with carvedilol, including prescription and oacy-wcd-gfsmqkg medicines, vitamins, and herbal products. Tell each [...] to ensure that the information provided by [employer]. ('[employer]') is accurate, up-to-date, and complete, but no guarantee is made to that effect. Drug information contained herein may be time sensitive. [employer] information has been compiled for use by healthcare practitioners and consumers in the [place] and therefore [employer] does not warrant that uses outside of the [place] are appropriate, unless specifically indicated otherwise. [employer]'s drug information does not endorse drugs, diagnose patients or recommend therapy. Pin [employer]s drug information is an informational resource designed [...] effective or appropriate for any given patient. [employer] does not assume any responsibility for any aspect of healthcare administered with the aid of information [employer] provides. The information contained herein is not intended to cover all possible uses, directions, precautions, warnings, drug interactions, allergic reactions, or adverse effects. If you have questions about the drugs you are taking, check with your doctor, nurse or pharmacist. Copyright 8544-3345 [employer]. Version: 15.01. Revision Date: 08/30/2013. albuterol and [...] may report side effects to FDA at 9-201-NWP-7304. What other drugs will affect albuterol and ipratropium inhalation? Tell your doctor about all your current medicines and any you start or stop using, especially: ? a diuretic or 'water pill'; ?? heart or blood pressure medicine; ?? other beta-blockers; or ?? an antidepressant. This list is not complete. Other drugs may interact with albuterol and ipratropium, including prescription and dvnh-luu-txwsqhu medicines, vitamins, and herbal products. Not all [...] to ensure that the information provided by [employer] ('[employer]') is accurate, up-to-date, and complete, but no guarantee is made to that effect. Drug information contained herein may be time sensitive. [employer] information has been compiled for use by healthcare practitioners and consumers in the [place] and therefore [employer] does not warrant that uses outside of the [place] are appropriate, unless specifically indicated otherwise. [employer]'s drug information does not endorse drugs, diagnose patients or recommend therapy. Pin [employer]s drug information is an informational resource designed [...] effective or appropriate for any given patient. [employer] does not assume any responsibility for any aspect of healthcare administered with the aid of information [employer] provides. The information contained herein is not intended to cover all possible uses, directions, precautions, warnings, drug interactions, allergic reactions, or adverse effects. If you have questions about the drugs you are taking, check with your doctor, nurse or pharmacist. Copyright 5518-2573 [employer]. Version: 7.01. Revision Date: 04/04/2017. guaifenesin (gwye [...] Description 08/23/2025 12:45 PM EST Office Visit [facility] Electrophysiology [address] [place] [address] Vik Corcoran MD [address] [facility] [address] [place] [address] documented as of this encounter Visit Diagnoses Not on filedocumented in this encounter Care Teams Site Lead Relationship Specialty Start Date End Date Alfred Castillo MD [address] [place] [address] PCP - General General Internal Medicine 08/29/22 Lyndsey Key MD [address] [facility] [address] [address] [employer] Interventional Cardiology 08/29/22 [place] [address] [place] [address] [address] [employer] Electrophysiology 05/19/24 documented as of this encounter
--- OUTSIDE RECORDS SUMMARY | 2025-02-18 10:44 | XMS_ITS | Encounter Summary ---
Author Organization [employer] ([place], [place], [place], [place]) Address [address] [place] [address] Care Team Providers Care Dive Master Name Role Phone Alfred Cantu MD Primary Care Provider [phone] Lyndsey Key MD Unavailable [phone] Vik Corcoran MD Unavailable Encounter Details Date Type Department Care Team (Late st Contact Info) Description 10/21/2018 Transcribed Document [facility] [place] Medicine [address] [place] [address] ProviderRashard MD [address] [place] [address] Social History Tobacco Use Types Packs/Day [...] Rashard ProviderMD - 10/21/2018 5:13 AM CDT Pain Assessment Entered On: 10/31/2018 1:26 EDT Performed On: 10/30/2018 22:49 EDT by Ivet Smith RN Intervention Information: acetaminophen Performed by Ivet Smith RN on 10/30/2018 21:49:00 EDT acetaminophen,325mg Oral,Pain (Mild 1-3) Pain Assessment Pain Assessment : Follow-up assessment Pain Scale Goal : 3 Pain Scale Used : 0-10 Scale Ivet Smith RN - 10/31/2018 1:26 EDT Pain Scale Intensity : 0 Luis, Ivet, RN - 10/31/2018 1:26 EDT Image 4 - Images currently included in the form version of this document have not been included in the text rendition version of the form. documented in this encounter Plan of Treatment Upcoming Encounters Date Type Department Care Team (Late st Contact Info) Description 08/23/2025 12:45 PM EST Office Visit [facility] Electrophysiology [address] [place] [address] Vik Corcoran MD [address] [place] [address] [address] [place], [place] [phone] documented as of this encounter Visit Diagnoses Not on filedocumented in this encounter Care Teams Dive Master Relationship Specialty Start Date End Date Alfred Cantu MD [address] [place] [address] PCP - General General Internal Medicine 08/29/22 Lyndsey Key MD [address] [place] [address] [id number] Ultrasound Specialist Interventional Cardiology 08/29/22 Vik Corcoran MD [address] [place] [address] [phone] Ultrasound Specialist Electrophysiology 05/19/24 documented as of this encounter
--- OUTSIDE RECORDS SUMMARY | 2025-02-18 10:44 | XMS_ITS | Encounter Summary ---
Author Organization [employer] ([place], [place], [place], [place]) Address [address] [place] [address] Care Team Providers Care Garbage Pick Up Worker Name Role Phone Alfred Cantu MD Primary Care Provider [phone] Lyndsey Key MD Unavailable [phone] Vik Corcoran MD Unavailable Encounter Details Date Type Department Care Team (Late st Contact Info) Description 08/21/2021 Transcribed Document [facility] [place] [facility] [place] [address] ProviderRashard MD [address] [place] [address] Social History Tobacco Use Types Packs/Day Years Used Date Smoking Tobacco: Never Assessed Comments Unknown Sex and Gender Information Value Date Recorded Sex Assigned at Not on file Legal Sex Female 1:15 PM CDT Gender Identity Not on file Sexual Orientation Not on file documented as of this encounter Miscellaneous Notes * Cerner Conversion Note - Rashard ProviderMD - 08/21/2021 4:09 PM ROOF FOREMAN Final Discharge Planning Entered On: 08/21/2021 16:09 EST Performed On: 08/21/2021 16:09 EST by CHU SALES Mkt Railroad Watchman-Utilization t Final Discharge Planning Discharge Arrangements : Patient Post-Acute Information Patient Name: KATHY CARTER Gender: Female : [birth year] Age: 80 Years No Post-Acute Placement(s) Listed No Post-Acute Service(s) Listed No Curaspan Referral(s) Listed Discharge To Care Management : Home/Residential/[facility]cf or Self Care -01 CHU SALES Mkt Railroad Watchman-Utilization Mgt - 08/21/2021 16:09 EST Electronically signed by [facility], [facility] Conversion Helminthology Teacher Cerner at 11/29/2022 12:46 PM CDT documented in this encounter Plan of Treatment Upcoming Encounters Date Type Department Care Team (Late st Contact Info) Description 08/23/2025 12:45 PM EST Office Visit [facility] Electrophysiology [address] [place] [phone] Vik Corcoran MD [address] [place] [address] [address] [place] [phone] documented as of this encounter Visit Diagnoses Not on filedocumented in this encounter Care Teams Garbage Pick Up Worker Relationship Specialty Start Date End Date Alfred Cantu MD [address] [place] [address] [place] [phone] PCP - General General Internal Medicine 08/29/22 Lyndsey Key MD [address] [place] [address] [phone] Billing Specialist Interventional Cardiology 08/29/22 Vik Corcoran MD [address] [place] [address] [address] Billing Specialist Electrophysiology 05/19/24 documented as of this encounter
--- OUTSIDE RECORDS SUMMARY | 2025-02-18 10:44 | XMS_ITS | Encounter Summary ---
Author Organization [employer] ([place], [place], [place], [place]) Address [address] [place] [address] Care Team Providers Care Supervisor Forming Department Name Role Phone Alfred Cantu MD Primary Care Provider [phone] Lyndsey Key MD Unavailable [phone] Vik Corcoran MD Unavailable Encounter Details Date Type Department Care Team (Late st Contact Info) Description 11/02/2018 Transcribed Document [facility] [place] [facility] [place] [address] ProviderRashard MD [address] [place] [address] Social History Tobacco Use Types Packs/Day Years Used Date Smoking Tobacco: Never Assessed Comments Unknown Sex and Gender Information Value Date Recorded Sex Assigned at Not on file Legal Sex Female 1:15 PM CDT Gender Identity Not on file Sexual Orientation Not on file documented as of this encounter Miscellaneous Notes * Cerner Conversion Note - Rashard ProviderMD - 11/02/2018 2:00 AM CDT Visitor Services Information Assistant Details Entered On: 11/02/2018 5:28 EDT Performed On: 11/02/2018 2:00 EDT by Ashu Ross Rn Order Details Transport Mode Order Detail : Ambulatory Isolation Precautions Order Detail : Droplet precautions Order Detail : N/A IV Order Detail : 1 Oxygen Order Detail : 1 Nurse Collect Order Detail : 0 Lift/Transfer : Minimal Central Line Order Detail : No Room Service : Appropriate Arterial Line : No Ashu Ross Rn - 11/02/2018 5:27 EDT Electronically signed by Kavita, [facility] Conversion Orthoptist Cerner at 11/28/2022 5:46 PM CDT documented in this encounter Plan of Treatment Upcoming Encounters Date Type Department Care Team (Late st Contact Info) Description 08/23/2025 12:45 PM EST Office Visit [facility] Electrophysiology [address] [place] [phone] Vik Corcoran MD [address] [place] [address] [address] [place], [place] [phone] documented as of this encounter Visit Diagnoses Not on filedocumented in this encounter Care Teams Supervisor Forming Department Relationship Specialty Start Date End Date Alfred Cantu MD [address] [place] [address] PCP - General General Internal Medicine 08/29/22 Lyndsey Key MD [address] [place] [address] [address] Customer Support Manager Interventional Cardiology 08/29/22 Vik Corcoran MD [address] [place] [address] [address] Customer Support Manager Electrophysiology 05/19/24 documented as of this encounter
--- OUTSIDE RECORDS SUMMARY | 2025-02-18 10:44 | XMS_ITS | Encounter Summary ---
Author Organization [employer] ([place], [place], [place], [place]) Address [address] [place] [address] Care Team Providers Care Private Duty Lpn Name Role Phone Alfred Cantu MD Primary Care Provider [phone] Lyndsey Key MD Unavailable [phone] Vik Corcoran MD Unavailable Encounter Details Date Type Department Care Team (Late st Contact Info) Description 07/24/2021 Transcribed Document [facility] [place] [facility] [place] [address] ProviderRashard MD [address] [place] [address] Social History Tobacco Use Types Packs/Day Years Used Date Smoking Tobacco: Never Assessed Comments Unknown Sex and Gender Information Value Date Recorded Sex Assigned at Not on file Legal Sex Female 1:15 PM CDT Gender Identity Not on file Sexual Orientation Not on file documented as of this encounter Miscellaneous Notes * Cerner Conversion Note - Rashard ProviderMD - 07/24/2021 7:46 AM ORIENTOR Stroke/Warfarin Instructions Entered On: 07/24/2021 7:48 EST Performed On: 07/24/2021 7:46 EST by DEVIN SAENZ RN Stroke/Warfarin Instructions Stroke/TIA Discharge Ins : Open Warfarin Discharge Ins : N/A DEVIN SAENZ RN - 07/24/2021 7:46 EST Stroke/TIA Discharge Instructions Individualized Stroke Risk Factors *Q : Atrial fibrillation, Hypertension/High blood pressure, Obesity Stroke Education Handouts Given *Q : Yes DEVIN SAENZ RN - 07/24/2021 7:46 EST Stroke Education Materials Given-Grid Activation of EMS *Q : Verbalizes understanding Follow-up Care After Discharge *Q : Verbalizes understanding Medications prescribed at DC *Q : Verbalizes understanding Risk Factors for Stroke *Q : Verbalizes understanding Warning S&S of Stroke *Q : Verbalizes understanding DEVIN SAENZ RN - 07/24/2021 7:46 EST Stroke/TIA Signs/Symptoms to Report Immediately : Sudden onset difficulty speaking, Sudden onset difficulty understanding speech, Sudden onset change in vision, Sudden onset weakness particulary on one side of the body, Sudden onset numbness/tingling, Sudden severe headache, Sudden dizziness or trouble with gait, Call 04-11-: EMS activation is crucial My LDL Level: : LDL Level No qualifying data available. DEVIN SAENZ RN - 07/24/2021 7:46 EST Electronically signed by [facility], [facility] Conversion Veneer Stacker Cerner at 11/29/2022 12:40 PM CDT documented in this encounter Plan of Treatment Upcoming Encounters Date Type Department Care Team (Late st Contact Info) Description 08/23/2025 12:45 PM EST Office Visit [facility] Electrophysiology [address] [place] [phone] Vik Corcoran MD [address] [place] [address] [address] documented as of this encounter Visit Diagnoses Not on filedocumented in this encounter Care Teams Private Duty Lpn Relationship Specialty Start Date End Date Alfred Cantu MD [address] [place] [address] PCP - General General Internal Medicine 08/29/22 Lyndsey eKy MD [address] [place] [address] [address] Powerhouse Operator Interventional Cardiology 08/29/22 Vik Corcoran MD [address] [place] [address] [address] Powerhouse Operator Electrophysiology 05/19/24 documented as of this encounter
--- OUTSIDE RECORDS SUMMARY | 2025-02-18 10:44 | XMS_ITS | Encounter Summary ---
Author Organization [employer] ([place], [place], [place], [place]) Address [address] [place] [address] Care Team Providers Care Vocational Nurse Name Role Phone Alfred Cantu MD Primary Care Provider [phone] Lyndsey Key MD Unavailable [phone] Vik Corcoran MD Unavailable Encounter Details Date Type Department Care Team (Late st Contact Info) Description 10/21/2018 Transcribed Document [facility] Family Medicine Formerly [facility] [place] [address] ProviderRashard MD [address] [place] [address] Social History Tobacco Use Types Packs/Day Years Used Date Smoking Tobacco: Never Assessed Comments Unknown Sex and Gender Information Value Date Recorded Sex Assigned at Not on file Legal Sex Female 1:15 PM CDT Gender Identity Not on file Sexual Orientation Not on file documented as of this encounter Miscellaneous Notes * Cerner Conversion Note - Rashard ProviderMD - 10/21/2018 10:34 AM CDT PLEASE MODIFY BEFORE SIGNING CLINICAL DOCUMENTATION CLARIFICATION FORM: Dear : Dennys Date / Time: 10/21/18 10:35 AM Please exercise your independent, professional judgment in responding to the clarification form. Clinical indicators are provided on the bottom of this form for your review Please check appropriate box(es): [ x ] Sepsis POA due to: (Pna, UTI, gangrenous gall bladder, etc.) RSV bronchitis [ ] Localized infection without sepsis [ ] Other diagnosis [ ] Unable to determine Physician Signature: Date/Time: For continuity of documentation, please document condition throughout progress notes and discharge summary. Thank You. To be completed by CDI/Coding staff for physician review: Present Clinical Indicators - Signs / Symptoms / Labs Results and Location in Medical Record [ x ] Respiratory rate >20/min Per admission vital signs 10/20 respirations 35 [ x ] WBC count (>12,000/mm^4 or <4000/mm^3 or 10% neuts, 10% bands) Per admission labs 10/20 WBC 14.6 [ x ] Acute organ dysfunction/failure Per H&P 10/20 acute systolic chf exacerbation Present Risk Factors Results and Location in Medical Record [ x ] Pneumonia Per H&P 10/20 pneumonia [ x ] Advancing Age Per H&P 10/20 patient is 78 years old Present Treatments Results and Location in Medical Record [ x ] ICU Per admission orders 10/20 ICU [ x ] Daily CBC, blood/sputum/wound cx Per admission orders 10/20 labs completed per orders [ x ] IV antibiotics ??? broad spectrum Per MAR summary 10/21 azithromycin IV zosyn IV CDS/Store Detective Signature: CELESTINO Lemus RN, CDS Phone #: [phone] This is a permanent part of the Medical Record Electronically signed by Kavita [facility] Conversion Scrummaster Cerner at 11/28/2022 5:36 PM CDT documented in this encounter Plan of Treatment Upcoming Encounters Date Type Department Care Team (Late st Contact Info) Description 08/23/2025 12:45 PM EST Office Visit [facility] Electrophysiology [address] [place] [phone] Vik Corcoran MD [address] [place] [address] [address] [place] [address] documented as of this encounter Visit Diagnoses Not on filedocumented in this encounter Care Teams Vocational Nurse Relationship Specialty Start Date End Date Alfred Cantu MD [address] [place] [id number] PCP - General General Internal Medicine 08/29/22 Lyndsey Key MD [address] [facility] [address] [place], [place] [id number] Interlocking And Signal Mechanic Interventional Cardiology 08/29/22 Vik Corcoran MD [address] [facility] [address] [place] [address] Interlocking And Signal Mechanic Electrophysiology 05/19/24 documented as of this encounter
--- OUTSIDE RECORDS SUMMARY | 2025-02-18 10:44 | XMS_ITS | Encounter Summary ---
Author Organization [employer] ([place], [place], [place], [place]) Address [address] [place] [address] Care Team Providers Care E Business Manager Name Role Phone Alfred Cantu MD Primary Care Provider [phone] Lyndsey Key MD Unavailable [phone] Vik Corcoran MD Unavailable Encounter Details Date Type Department Care Team (Late st Contact Info) Description 10/21/2018 Transcribed Document [facility] Family Medicine [facility] [place] [address] ProviderRashard MD [address] [place] [address] Social History Tobacco Use Types Packs/Day Years Used Date Smoking Tobacco: Never Assessed Comments Unknown Sex and Gender Information Value Date Recorded Sex Assigned at Not on file Legal Sex Female 1:15 PM CDT Gender Identity Not on file Sexual Orientation Not on file documented as of this encounter Miscellaneous Notes * Cerner Conversion Note - Rashard ProviderMD - 10/21/2018 5:00 AM CDT Chart Check - Review Order Profile Entered On: 10/21/2018 16:38 EDT Performed On: 10/21/2018 5:00 EDT by JEAN CLAUDE CALDWELL RN Chart Check Chart Reviewed Date and Time : 10/21/2018 16:38 EDT Powerplans Initiated/Discontinued as Appropriate : Yes All Active Orders Reviewed : Yes JEAN CLAUDE CALDWELL RN - 10/21/2018 16:38 EDT documented in this encounter Plan of Treatment Upcoming Encounters Date Type Department Care Team (Late st Contact Info) Description 08/23/2025 12:45 PM EST Office Visit [facility] Electrophysiology [address] [place] [phone] [place] [address] [place] [address] [address] [place], [place] [id number] documented as of this encounter Visit Diagnoses Not on filedocumented in this encounter Care Teams E Business Manager Relationship Specialty Start Date End Date lAfred Cantu MD [address] [place] [address] PCP - General General Internal Medicine 08/29/22 [place] [address] [place] [address] [address] [place] [address] Welfare Service Aide Interventional Cardiology 08/29/22 [place] [address] [place] [address] [address] [place], [place] [id number] Welfare Service Aide Electrophysiology 05/19/24 documented as of this encounter
--- OUTSIDE RECORDS SUMMARY | 2025-02-18 10:45 | XMS_ITS | Encounter Summary ---
Author Organization [employer] ([place], [place], [place], [place]) Address [address] [place] [address] Care Team Providers Care Hydro Electric Station Operator Name Role Phone Alfred Cantu MD Primary Care Provider [phone] Lyndsey Key MD Unavailable [phone] Vik Corcoran MD Unavailable Encounter Details Date Type Department Care Team (Latest Contact Info) Description 02/17/2025 Travel Social History Tobacco Use Types Packs/Day Years [...] Date Ezra rded Speak language other than Senegalese at home Not on file 08/29/2023 Want [...] Upcoming Encounters Date Type Department Care Team ( Contact Info) Description 08/23/2025 12:45 PM EST Office Visit [facility] Electrophysiology [address] [place] [phone] Vik Corcoran MD [address] [facility] [address] [place] [address] documented as of this encounter Visit Diagnoses Not on filedocumented in this encounter Care Teams Hydro Electric Station Operator Relationship Specialty Start Date End Date Alfred Cantu MD [address] [place] [address] PCP - General General Internal Medicine 08/29/22 Lyndsey Key MD [address] [facility] [address] [place] [address] Kiosk Sales Representative Interventional Cardiology 08/29/22 Vik Corcoran MD [address] [facility] [address] [place] [address] Kiosk Sales Representative Electrophysiology 05/19/24 documented as of this encounter
--- NOTE | 2025-02-18 11:00 | ED_ITS ---
Discharge Plan Disposition Chief Complaint: Wound/Laceration Prescriptions Prescriptions: No Action levalbuterol tartrate 45 mcg/actuation HFA aerosol inhaler 2 inh IH Q6H PRN (Reason: shortness of breath or wheezing) 90 Days Qty: 15 3RF fluticasone propion-salmeterol 250-50 mcg/dose blister with device 1 inh IH BID 90 Days Qty: 60 3RF fluticasone propionate 50 mcg/actuation spray,suspension 1 spray NS BID 90 Days Qty: 15.8 3RF Rx Instructions: administer into each nostril levalbuterol tartrate [Xopenex HFA] 45 mcg/actuation HFA aerosol inhaler 2 inh inhalation Q6H PRN (Reason: shortness of breath or wheezing) 90 Days Qty: 15 3RF bumetanide 0.5 mg tablet 1 mg PO DAILY Qty: 180 1RF methylprednisolone 4 mg tablets,dose pack See Rx Instructions PO PER PKG DIR Qty: 21 0RF Rx Instructions: PO PER PKG DIR cefdinir 300 mg capsule 300 mg PO BID Qty: 20 0RF amiodarone 400 mg tablet 200 mg PO DAILY Qty: 90 0RF carvedilol 25 mg tablet 25 mg PO BID 90 Days Qty: 360 1RF polysaccharide iron complex 150 mg iron capsule 150 mg PO DAILY Qty: 90 2RF diazepam 5 mg tablet 5 mg PO BID PRN (Reason: Anxiety) Qty: 60 2RF irbesartan 150 mg tablet 150 mg PO DAILY Qty: 90 1RF amlodipine 2.5 mg tablet See Rx Instructions .ROUTE .COMPLEX Qty: 90 1RF Dose Instruction: Take 1 tablet by mouth once daily Rx Instructions: Take 1 tablet by mouth once daily fluconazole 150 mg tablet 150 mg PO Q3D Qty: 2 1RF hydrocodone-homatropine [Hycodan (with homatropine)] 5-1.5 mg tablet 1 tab PO TID PRN (Reason: cough) Qty: 30 0RF potassium chloride 10 mEq capsule, extended release 20 meq PO DAILY Qty: 60 2RF aspirin 81 MG tablet,delayed release (DR/EC) 81 mg PO DAILY levalbuterol HCl 1.25 MG/3 ML solution for nebulization 1.25 mg IH Q6H omeprazole 20 MG capsule,delayed release(DR/EC) 20 mg PO DAILY Referrals Follow up/Referrals: Alfred Cantu MD [Primary Care Provider, Medical] - See instructions Instructions Patient Instructions: DI for Laceration Repair Print Language Print Language: Peruvian Discharge ED Provider: Cullen Mckenna Adult HPI General Chief complaint: Wound/Laceration Stated complaint: A/O FAll 02/18/25 9:00am L knee Laceration Time Seen by Provider: 02/18/25 10:35 Mode of Arrival: Wheelchair Source of Information: Patient Description of Symptoms (Recalled from ER Triage Doc. by RN): pt presents to the ED after tripping over a rug trying to put towels up. Pt has a laceration to her left leg. pt denies hitting her head during the fall. Pt not on blood thinners. Denies chest pain or shortness of breath. History of Present Illness HPI narrative: This is an 84-year-old female patient, with past medical history of hypertension, congestive heart failure, and atrial fibrillation status post AICD placement and Watchman device installation on no current anticoagulation, who is presented to the emergency department today for fall with laceration to the left knee. Patient states that she was walking in the house and her foot got caught on an object in the floor and this caused her to fall to her knee. She did not hit her head and she did not lose consciousness. She was able to help herself back up to her feet and she has been ambulatory since the incident. A family member who is a nurse was able to evaluate the patient and she dressed the laceration prior to coming to the hospital. By the time of arrival this wound was hemostatic. The patient has not had any difficulty with flexion and extension of the knee. She has not had any numbness and tingling in the lower extremity. She denies pain in her pelvis and her back. Related Data Home Medications ?Medication ?Instructions ?Recorded ?Confirmed aspirin 81 mg tablet,delayed 81 mg PO DAILY Blood thin ner 08/26/19 01/25/25 release levalbuterol HCl 1.25 mg/3 mL 1.25 mg inhalation Q6H A sthma 08/26/19 01/25/25 solution for nebulization omeprazole 20 mg capsule,delayed 20 mg PO DAILY ACID R EFLUX 03/07/21 01/25/25 release Previous Rx's ?Medication ?Instructions ?Recorded levalbuterol tartrate 45 2 inh inhalation Q6H PRN tim rtness 01/09/22 mcg/actuation aerosol inhaler of breath or wheezing 90 days #15 grams fluticasone 250 mcg-salmeterol 50 1 inh inhalation BID 90 days #60 ea 04/12/22 mcg/dose blistr powdr for inhalation fluticasone propionate 50 1 spray intranasal BID 90 da ys 04/12/22 mcg/actuation nasal #15.8 mL spray,suspension levalbuterol tartrate 45 2 inh inhalation Q6H PRN tim rtness 04/12/22 mcg/actuation aerosol inhaler of breath or wheezing 90 days #15 (Xopenex HFA) grams amiodarone 400 mg tablet 200 mg (1/2 x 400 mg) PO KARENA LY 04/22/24 heart rate #90 tabs carvedilol 25 mg tablet 25 mg PO BID High blood pres sure 07/26/24 90 days #360 tabs bumetanide 0.5 mg tablet 1 mg (2 x 0.5 mg) PO DAILY e carolyn 09/02/24 #180 tabs polysaccharide iron complex 150 mg 150 mg PO DAILY #90 caps 09/03/24 iron capsule diazepam 5 mg tablet 5 mg PO BID PRN Anxiety #60 tabs 09/07/24 irbesartan 150 mg tablet 150 mg PO DAILY #90 tabs amlodipine 2.5 mg tablet See Rx Instructions .Route 0 01/10/25 .COMPLEX #90 tabs cefdinir 300 mg capsule 300 mg PO BID #20 caps 01/25 methylprednisolone 4 mg tablets in See Rx Instructions PO PER PKG DIR 01/25/25 a dose pack #21 tabs fluconazole 150 mg tablet 150 mg PO Q3D 2 doses #2 tab s 01/28/25 hydrocodone-homatropine 5 mg-1.5 1 tab PO TID PRN coug h #30 tabs 01/28/25 mg tablet (Hycodan (with homatropine)) potassium chloride 10 mEq 20 meq (2 x 10 mEq) PO DAILY #60 02/14/25 capsule,extended release caps Allergies Allergy/AdvReac Type Severity Reaction Status Date / Time latex Allergy Intermediate I-RASH Verified 01/25/25 16:34 Sulfa (Sulfonamide Allergy Mild NA-NAUSEA Verified 01/25/25 16:34 Antibiotics) levofloxacin AdvReac Mild Blurry Verified 01/25/25 16:34 [facility] Disclaimer: The information contained in this section may have been updated after the patient was seen, as this information can be updated by other users. Medical History DJD (degenerative joint disease) of knee Asthma Seasonal allergic rhinitis Mild persistent asthma Dyspnea on exertion Surgical History History of permanent cardiac pacemaker placement Family History Other No significant family history Social History Smoking Status: Never smoker second hand exposure: No alcohol intake: never substance use type: denies use current occupational status: retired Travel in the last 8 weeks?: None household members: spouse housing: house current occupational exposures/hazards: No caffeine: Yes Have you lived/traveled outside US in past 30 days?: No Contact w/someone who lives/traveled outside US past 30 days?: No Exposure to someone with infectious disease in past 14 days?: No Do you have a fever (greater than 100.4 F or 38 C)?: No Have you tested positive for COVID-19?: No Exposed to someone with COVID-19 in past 14 days?: No Do you have a sore throat?: No Do you have a cough?: No Do you have any weakness?: No Do you have any diarrhea?: No Are you experiencing any unusual bleeding?: No Do you have any muscle aches/pain?: No Do you have any abdominal pain?: No Are you experiencing loss of taste or smell?: No Other Medical History Have you received the Flu Vaccine for this season: Yes Have you received the Pneumonia Vaccine: No ROS Obtained: Yes Systems reviewed as appropriate & no additional complaints except as documented Physical Exam General General appearance: alert and in no apparent distress Head Head exam: atraumatic and normocephalic Eye Eye exam: Present PERRL and EOMI ENT ENT exam: Present normal oropharynx and mucous membranes moist Neck Neck exam: Present full ROM and trachea midline Respiratory Respiratory exam: Present normal lung sounds bilaterally; Absent respiratory distress Cardiovascular Cardiovascular exam: Present regular rate and normal rhythm Abdominal Exam Abdominal exam: Present soft; Absent tenderness Extremities Exam Extremities exam: Present normal inspection; Absent tenderness Back Exam Back exam: Absent vertebral tenderness Neurological Exam Neurological exam: Present alert and oriented X3 Skin Skin exam: Present warm, dry and other (See MDM) Medical Decision Making Medical Records Medical records reviewed: Yes I reviewed the patient's medical records. Screening: Per USPSTF and CDC recommendations, given the prevalence of disease in our region, it is our hospital?s policy to screen for HIV and viral Hepatitis for all patients aged 18 and over and those with ongoing risk factors. Saad Inquiry Pt receiving controlled substance: No Saad was queried for this patient: No Vital Signs: 02/18/25 10:35 02/18/25 10:39 02/18/25 10:44 Temperature 98.2 F Temperature Source Oral Pulse Rate 82 66 Pulse Rate [Right] 73 Respiratory Rate 14 Blood Pressure 159/125 H 182/87 H Blood Pressure [Right Arm] 182/87 H Blood Pressure Mean 132 149 Blood Pressure Mean [Right Arm] 118 Blood Pressure Source Blood Pressure Source [Right Arm] Automatic Cuff Blood Pressure Position Blood Pressure Position [Right Arm] Supine 02 Sat by Pulse Oximetry 95 94 L 97 Oxygen Delivery Method Room Air 02/18/25 10:53 02/18/25 11:00 02/18/25 11:30 Temperature 98.2 F Temperature Source Oral Pulse Rate 73 65 69 Pulse Rate [Right] Respiratory Rate 14 Blood Pressure 182/87 H 173/87 H 180/87 H Blood Pressure [Right Arm] Blood Pressure Mean 108 Blood Pressure Mean [Right Arm] Blood Pressure Source Automatic Cuff Blood Pressure Source [Right Arm] Blood Pressure Position Supine Blood Pressure Position [Right Arm] 02 Sat by Pulse Oximetry 95 97 95 Oxygen Delivery Method Room Air Orders (Tests/Meds): ED MEDICATIONS Discontinued Medications Generic Name Dose Route Start Last Admin Trade Name Freq PRN Reason Stop Dose Admin Bacitracin 1 gm 02/18/25 12:08 02/18/25 12:10 Bacitracin Zinc Oint 30gm Tube TP 02/18/25 12:09 1 gm ONCE ONE Administration Lidocaine HCl 10 ml 02/18/25 10:50 02/18/25 11:24 Lidocaine 1% 10ml Mdv SUBCUT 02/18/25 10:51 10 ml ONCE ONE Administration ORDERS Category Date Time Status Knee XR left 2 views [XR knee LT 2V] Stat Exams 02/18/25 10:42 Completed Medical Decision Narrative: In summary, this is an 84-year-old female patient who is presenting to the emergency department today after a ground-level fall in which she principally impacted her left knee against the ground and suffered a laceration over the patella. Comorbidities include hypertension, heart failure, and atrial fibrillation status post AICD and Watchman device installation. She is currently not on any anticoagulants. On initial evaluation of the patient they were resting comfortably in no acute distress and nontoxic in appearance. They are hemodynamically stable, saturatin g well room air, and are neurologically intact. On secondary survey of the patient she has no scalp lacerations, hematomas, or abrasions. No midface instability or jaw malocclusion. No nasal septal hematoma. No C, T, or L-spine tenderness. Pelvis is stable. No tenderness of the proximal lower extremities or distal lower extremities. She does have a 5 cm laceration over the left patella with underlying bone exposure. There is no findings to suggest fracture on exam. She has good motor function and sensation in the left lower extremity distal to this injury. Differential diagnosis includes laceration, patellar fracture, tibial plateau fracture, among others. No labs were indicated for this workup. We did proceed with an x-ray of the left knee. X-ray was personally interpreted by me and demonstrates no fractures of the patella or tibial plateau. Official radiology read did result and shows that there is no acute fracture or foreign body. While patient was in the emergency department we did perform a laceration repair of her knee. She did tolerate this well. Please see procedure note for details. We have dressed the patient's wound with bacitracin and nonstick dressings. We have sent her home with bacitracin as well. I have instructed her to change these dressings twice per day and apply bacitracin twice per day as well. We will have her return in 10 days for suture removal. at this time all questions have been answered and all parties are agreeable with the decision to discharge home Procedures Laceration Laceration 1: Site: lower extremity Side (If applicable): left (Knee) Size (cm): 5 Description: linear Depth: involves subcutaneous layer Local Anesthetic: lidocaine 1% Amount of anesthesia used (mL): 6 Pre-repair: wound explored and irrigated extensively Skin layer closed with: nylon Size (cm): 3-0 Number of sutures: 11 Technique: simple, interrupted Subcutaneous layer closed with: vicryl Size: 4-0 Number of sutures: 2 Technique: simple, interrupted Critical Care Critical Care Time Critical Care Time: No
[2025-02-18] MEDS: LIDOCAINE 1% 10ML MDV 10 ML SUBCUT (11:24)
--- NOTE | 2025-02-18 12:03 | PC.NURSE ---
Patient ambulatory to the bathroom with stand by assistance
[2025-02-18] MEDS: BACITRACIN ZINC OINT 30GM TUBE TP (12:10)
== END 2025-02-18 12:35 | disposition home or self-care (01) ==
PROVIDERS: Emergency Provider Student in an Organized Health Care Education/Training Program; PCP Internal Medicine
DX: S81.012A Laceration without foreign body, left knee, initial encounter (principal); W01.10XA Fall on same level from slipping, tripping and stumbling with subsequent striking against unspecified object, initial encounter
CPT/HCPCS: 13121; 73560; 99283; J2003

== ENCOUNTER 2025-05-23 17:01 | Outpatient (CLI) | payer MEDICARE, SELFPAY ==
--- OUTSIDE RECORDS SUMMARY | 2025-03-17 03:00 | XMS_ITS | Encounter Summary ---
Author Organization [employer] ([place], [place], [place], [place]) Address [address] [place] [address] Care Team Providers Care Rental Representative Name Role Phone Alfred Cantu MD Primary Care Provider [phone] Lyndsey eKy MD Unavailable [phone] Vik Corcoran MD Unavailable Reason for Visit * Reason Comments Pacemaker /ICD Home Monitoring Encounter Details Date Type Department Care Team (Late st Contact Info) Description 03/17/2025 3:00 AM EDT Clinical Support [facility] Electrophysiology [address] [place] [phone] [place] [address] [place] [address] [address] [place] [address] Encounter for adjustment or management of cardiac [...] Date Ezra rded Speak language other than [place] Verde[place] at home Not on file 08/29/2023 Want [...] Office Visit [facility] Electrophysiology [address] [place] [phone] [place] [address] [place] [address] [address] [place], [place] [id number] documented as of this encounter Visit Diagnoses Diagnosis Encounter for adjustment or management of cardiac device- Primary A-fib; parosyxmal Atrial fibrillation NICM (nonischemic cardiomyopathy) Chronic systolic congestive heart failure (HCC) AICD (automatic cardioverter/defibrillator) present Automatic implantable cardiac defibrillator in situ documented in this encounter Care Teams Rental Representative Relationship Specialty Start Date End Date Alfred Cantu MD [address] [place] [address] PCP - General General Internal Medicine 08/29/22 [place] [address] [place] [address] [id number] Seafood Processor Interventional Cardiology 08/29/22 Vik Corcoran MD [address] [facility] [address] [place], [place] [id number] Seafood Processor Electrophysiology 05/19/24 documented as of this encounter
--- OUTSIDE RECORDS SUMMARY | 2025-04-18 03:00 | XMS_ITS | Encounter Summary ---
Author Organization [employer] ([place], [place], [place], [place]) Address [address] [place] [address] Care Team Providers Care Loft Rigger Name Role Phone Alfred Cantu MD Primary Care Provider [phone] Lyndsey Key MD Unavailable [phone] Vik Corcoran MD Unavailable Reason for Visit * Reason Comments Pacemaker /ICD Home Monitoring Encounter Details Date Type Department Care Team (Late st Contact Info) Description 04/18/2025 3:00 AM EDT Clinical Support [facility] Electrophysiology [address] [place] [phone] [place] [address] [place] [address] [address] [place] [address] Encounter for adjustment or management of cardiac device (Primary Dx); NICM (nonischemic cardiomyopathy); Chronic systolic congestive heart [...] Date Ezra rded Speak language other than Czech at home Not on file 08/29/2023 Want [...] Description 08/23/2025 12:45 PM EST Office Visit [facility] Electrophysiology [address] [place] [phone] [place] [address] [place] [address] [address] [place] [address] documented as of this encounter Visit Diagnoses Diagnosis Encounter for adjustment or management of cardiac device- Primary NICM (nonischemic cardiomyopathy) Chronic systolic congestive heart failure (HCC) AICD (automatic cardioverter/defibrillator) present Automatic implantable cardiac defibrillator in situ documented in this encounter Care Teams Loft Rigger Relationship Specialty Start Date End Date Alfred Cantu MD [address] [place] [address] PCP - General General Internal Medicine 08/29/22 [place] [address] [place] [address] [address] Property Custodian Interventional Cardiology 08/29/22 [place] [address] [place] [address] [address] Property Custodian Electrophysiology 05/19/24 documented as of this encounter
--- OUTSIDE RECORDS SUMMARY | 2025-05-18 03:00 | XMS_ITS | Encounter Summary ---
Author Organization [employer] ([place], [place], [place], [place]) Address [address] [place] [address] Care Team Providers Care Head Teller Name Role Phone Alfred Cantu MD Primary Care Provider [phone] Lyndsey Key MD Unavailable [phone] Vik Corcoran MD Unavailable Reason for Visit * Reason Comments Pacemaker /ICD Home Monitoring Encounter Details Date Type Department Care Team (Late st Contact Info) Description 05/18/2025 3:00 AM EDT Clinical Support [facility] Electrophysiology [address] [place] [phone] [place] [address] [place] [address] [address] [place] [address] Encounter for adjustment or management of cardiac [...] Date Ezra rded Speak language other than Sammarinese at home Not on file 08/29/2023 Want [...] Description 08/23/2025 12:45 PM EST Office Visit [facility] Electrophysiology [address] [place] [phone] [place] [address] [place] [address] [address] [place], [place] [id number] documented as of this encounter Visit Diagnoses Diagnosis Encounter for adjustment or management of cardiac device- Primary A-fib; parosyxmal Atrial fibrillation NICM (nonischemic cardiomyopathy) Chronic systolic congestive heart failure (HCC) AICD (automatic cardioverter/defibrillator) present Automatic implantable cardiac defibrillator in situ documented in this encounter Care Teams Head Teller Relationship Specialty Start Date End Date Alfred Cantu MD [address] [place] [address] PCP - General General Internal Medicine 08/29/22 [place] [address] [place] [address] [id number] Research Group Director Interventional Cardiology 08/29/22 Vik Corcoran MD [address] [facility] [address] [place], [place] [id number] Research Group Director Electrophysiology 05/19/24 documented as of this encounter
--- OUTSIDE RECORDS SUMMARY | 2025-05-19 03:00 | XMS_ITS | Encounter Summary ---
Author Organization [employer] ([place], [place], [place], [place]) Address [address] [place] [address] Care Team Providers Care Electric Brain Wave Equipment Mechanic Name Role Phone Alfred Cantu MD Primary Care Provider [phone] Lyndsey Key MD Unavailable [phone] Vik Corcoran MD Unavailable Reason for Visit * Reason Comments Pacemaker /ICD Home Monitoring Encounter Details Date Type Department Care Team (Late st Contact Info) Description 05/19/2025 3:00 AM EDT Clinical Support [facility] Electrophysiology [address] [place] [phone] [place] [address] [place] [address] [address] [place] [address] Encounter for adjustment or management of cardiac [...] Date Ezra rded Speak language other than French at home Not on file 08/29/2023 Want [...] Description 08/23/2025 12:45 PM EST Office Visit [facility] Electrophysiology [address] [place] [phone] [place] [address] [place] [address] [address] [place] [address] documented as of this encounter Visit Diagnoses Diagnosis Encounter for adjustment or management of cardiac device- Primary NICM (nonischemic cardiomyopathy) Chronic systolic congestive heart failure (HCC) AICD (automatic cardioverter/defibrillator) present Automatic implantable cardiac defibrillator in situ documented in this encounter Care Teams Electric Brain Wave Equipment Mechanic Relationship Specialty Start Date End Date Alfred Cantu MD [address] [place] [address] PCP - General General Internal Medicine 08/29/22 [place] [address] [place] [address] [address] Biologist Aide Interventional Cardiology 08/29/22 [place] [address] [place] [address] [address] Biologist Aide Electrophysiology 05/19/24 documented as of this encounter
--- OUTSIDE RECORDS SUMMARY | 2025-05-24 17:04 | XMS_ITS | Referral Summary ---
Author Organization [employer] ([place], [place], [place], [place]) Address [address] [place] [address] Care Team Providers Care Project Manager Retail Name Role Phone Alfred Cantu MD Primary Care Provider [phone] Lyndsey Key MD Unavailable [phone] Vik Corcoran MD Unavailable Encounters Date Type Department Care Team Description 05/19/2025 3:00 AM EDT Clinical Support [facility] Electrophysiology [address] [place] [phone] Vik Corcoran MD Encounter for adjustment or management of cardiac device (Primary Dx); NICM (nonischemic cardiomyopathy); Chronic systolic congestive heart failure (HCC); AICD (automatic cardioverter/defibrilla tor) present 05/18/2025 3:00 AM EDT Clinical Support [facility] Electrophysiology [address] [place] [phone] Vik Corcoran MD Encounter for adjustment or management of cardiac device (Primary Dx); A-fib; parosyxmal; NICM (nonischemic cardiomyopathy); Chronic systolic congestive heart failure (HCC); AICD (automatic cardioverter/defibrilla tor) present 04/18/2025 3:00 AM EDT Clinical Support [facility] Electrophysiology [address] [place] [phone] Vik Corcoran MD Encounter for adjustment or management of cardiac device (Primary Dx); NICM (nonischemic cardiomyopathy); Chronic systolic congestive heart failure (HCC); AICD (automatic cardioverter/defibrilla tor) present 03/17/2025 3:00 AM EDT Clinical Support [facility] Electrophysiology [address] [place] [address] Vik Corcoran MD Encounter for adjustment or management of cardiac device (Primary Dx); A-fib; parosyxmal; NICM (nonischemic cardiomyopathy); Chronic systolic congestive heart failure (HCC); AICD (automatic cardioverter/defibrilla tor) present 03/17/2025 10:36 AM EDT - 03/17/2025 11:59 PM EDT Hospital Encounter [facility] CT Imaging [address] [place] [address] Julisa Abbott PA Postlaminectomy syndrome, lumbar region Discharge Disposition: Home or Self Care 03/17/2025 Travel 03/17/2025 7:48 AM EDT - 03/17/2025 10:35 AM EDT Hospital Encounter [facility] CT Imaging [address] [place] [address] Julisa Abbott PA Postlaminectomy syndrome Discharge Disposition: Home or Self Care 03/17/2025 7:48 AM EDT - 03/17/2025 10:35 AM EDT Hospital Encounter [facility] Diagnostic Imaging [address] [place] [address] Julisa Abbott PA Postlaminectomy syndrome Discharge Disposition: Home or Self Care 03/10/2025 Outside Orders [facility] Scheduling [address] [place] [address] Julisa Abbott PA Postlaminectomy syndrome (Primary Dx) 03/10/2025 Outside Orders [facility] Scheduling [address] [place] [address] Julisa Abbott PA Postlaminectomy syndrome (Primary Dx) from Last 3 Months Allergies Active Allergy [...] 60 Tab, 0 Refill(s) 08/16/2021 Active fluticasone propion-salmete roL (ADVAIR) 500-50 mcg/dose diskus inhaler Inhale 1 puff by mouth 2 (two) times daily. Active amLODIPine (NORVASC) 2.5 MG tablet Take 1 tablet (2.5 mg total) by mouth daily. Active CALCIUM-MAGNESI UM-ZINC ORAL Take by mouth. Active diazePAM (VALIUM) 5 MG tablet Take 1 tablet (5 mg total) by mouth every 6 (six) hours as needed. Active omeprazole (PriLOSEC OTC) 20 MG tablet Take 1 tablet (20 mg total) by mouth daily. Active potassium chloride (K-TAB) 20 mEq CR tablet Take 1 tablet (20 mEq total) by mouth daily. Active bumetanide (BUMEX) 2 MG tablet Take 2 tablets (4 mg total) by mouth daily. Active Active Problems Problem Noted Date Diagnosed Date Encounter for adjustment or management of cardia c device 08/20/2024 Chronic systolic congestive heart failure 2023 AICD (automatic cardioverter/defibrillator) pres ent 12/25/2023 Asthma 10/03/2022 GERD (gastroesophageal reflux disease) 3 Nonrheumatic mitral (valve) insufficiency 2022 Obesity 10/03/2022 [...] Date Ezra rded Speak language other than [place] at home Not on file 08/29/2023 Want [...] Sign Reading Time Taken Comments Blood Pressure 115/78 03/17/2025 11:00 AM EDT Pulse 68 03/17/2025 11:30 AM EDT Temperature - - Respiratory Rate 17 03/17/2025 11:15 AM EDT Oxygen Saturation 97% 03/17/2025 11:15 AM EDT Inhaled Oxygen Concentration - - Weight 76.2 kg (168 lb) 03/17/2025 8:13 AM EDT Height 152.4 cm (5') 03/17/2025 8:13 AM EDT Body Mass Index 32.81 03/17/2025 8:13 AM EDT Plan of Treatment Upcoming Encounters Date Type Department Care Team (Late st Contact Info) Description 08/23/2025 12:45 PM EST Office Visit [facility] Electrophysiology [address] [place] [phone] Vik Corcoran MD [address] [place] [address] [address] [place] [address] Medical Devices Implanted Type Area Financial Sales Assistant Device Identifier Shelf Expiration Date Model / Serial / Lot Icd-10/23/2018 Implanted:2018 by Esteban Castillo MD (Quantity not on file) ICD [employer] CLARIA QUAD / [id number] / Procedures Procedure Name Priority Date/Time Associated Diagnosis Comments CT LUMBAR SPINE WITH CONTRAST Routine 03/17/2025 11:00 AM EDT Postlaminectomy syndrome, lumbar region CT THORACIC SPINE WITH CONTRAST Routine 03/17/2025 11:00 AM EDT Postlaminectomy syndrome FL MYELOGRAM TWO OR MORE REGIONS Routine 03/17/2025 10:45 AM EDT Postlaminectomy syndrome from Last 3 Months Results * CT spine lumbar with contrast (03/17/2025 11:00 AM EDT) Anatomical Region Laterality Modality L-spine, Pelvis Computed Tomogra phy (CT) 03/17/2025 12:5 5 PM EDT Impressions 03/17/2025 1:09 PM EDT Degenerative disc disease as detailed above. Images reviewed, interpreted, and dictated by Figueroa Jasso MD Narrative 03/17/2025 1:09 PM EDT THORACIC AND LUMBAR CT WITH CONTRAST - POST MYELOGRAM; 03/17/2025 10:30 AM HISTORY: Chronic lumbar and thoracic back pain. PROCEDURE: After the patient's myelogram, axial images were obtained through the spine by computed tomography. Sagittal reconstruction images were performed. This study was performed with techniques to keep radiation doses as low as reasonably achievable, (ALARA). Individualized dose reduction techniques using automated exposure control or adjustment of mA and/or kV according to the patient size were employed. FINDINGS: Thoracic: Contrast is identified in the thecal space. There is moderate diffuse degenerative disc disease. There is a 20% upper endplate compression fracture at T10. Disc bulges are present throughout the mid and lower thoracic spine. There is no critical central canal stenosis. There is bilateral neural foraminal stenosis at T8-9, T9-10, T10-11, T11-12. There is moderate right neural foraminal stenosis at T1-2, T2-3, T3-4. Lumbar: There is severe diffuse degenerative disc disease. There is relative sparing at L2-3. There is minimal anterolisthesis at L5-S1. L1-2: There is facet hypertrophy and a broad-based disc bulge. There is moderate central canal stenosis to the right of midline where there is a small focal protrusion. There is moderate bilateral neural foraminal stenosis. L2-3: There is facet hypertrophy and a mild disc bulge. There is mild central canal stenosis. There is mild bilateral neural foraminal stenosis. L3-4: There is facet hypertrophy and a broad-based disc bulge. There is a central protrusion. There is severe central canal stenosis. There is moderate right and mild left neural foraminal stenosis. L4-5: There is severe facet arthropathy. There is a disc bulge in the left neural foramen. There is moderate central canal stenosis. There is moderate right and severe left neural foraminal stenosis. L5-S1: There is severe facet hypertrophy. There is a small central protrusion. There is mild central canal stenosis. There is severe bilateral neural foraminal stenosis. Procedure Note Sacha Jasso MD - 03/17/[address] WITH CONTRAST - POST MYELOGRAM; 03/17/2025 10:30 AM HISTORY: Chronic lumbar and thoracic back pain. PROCEDURE: After the patient's myelogram, axial images were obtained through the spine by computed tomography. Sagittal reconstruction images were performed. This study was performed with techniques to keep radiation doses as low as reasonably achievable, (ALARA). Individualized dose reduction techniques using automated exposure control or adjustment of mA and/or kV according to the patient size were employed. FINDINGS: Thoracic: Contrast is identified in the thecal space. There is moderate diffuse degenerative disc disease. There is a 20% upper endplate compression fracture at T10. Disc bulges are present throughout the mid and lower thoracic spine. There is no critical central canal stenosis. There is bilateral neural foraminal stenosis at T8-9, T9-10, T10-11, T11-12. There is moderate right neural foraminal stenosis at T1-2, T2-3, T3-4. Lumbar: There is severe diffuse degenerative disc disease. There is relative sparing at L2-3. There is minimal anterolisthesis at L5-S1. L1-2: There is facet hypertrophy and a broad-based disc bulge. There is moderate central canal stenosis to the right of midline where there is a small focal protrusion. There is moderate bilateral neural foraminal stenosis. L2-3: There is facet hypertrophy and a mild disc bulge. There is mild central canal stenosis. There is mild bilateral neural foraminal stenosis. L3-4: There is facet hypertrophy and a broad-based disc bulge. There is a central protrusion. There is severe central canal stenosis. There is moderate right and mild left neural foraminal stenosis. L4-5: There is severe facet arthropathy. There is a disc bulge in the left neural foramen. There is moderate central canal stenosis. There is moderate right and severe left neural foraminal stenosis. L5-S1: There is severe facet hypertrophy. There is a small central protrusion. There is mild central canal stenosis. There is severe bilateral neural foraminal stenosis. IMPRESSION: Degenerative disc disease as detailed above. Images reviewed, interpreted, and dictated by Figueroa Jasso MD [facility]isa [facility] [place] ORDER[place] Final Result * CT spine thoracic with contrast (03/17/2025 11:00 AM EDT) Anatomical Region Laterality Modality C-spine, T-spine, L-spine, Chest Computed Tomography (CT) 03/17/2025 12:5 5 PM EDT Impressions 03/17/2025 1:09 PM EDT Degenerative disc disease as detailed above. Images reviewed, interpreted, and dictated by Figueroa Jasso MD Narrative 03/17/2025 1:09 PM EDT THORACIC AND LUMBAR CT WITH CONTRAST - POST MYELOGRAM; 03/17/2025 10:30 AM HISTORY: Chronic lumbar and thoracic back pain. PROCEDURE: After the patient's myelogram, axial images were obtained through the spine by computed tomography. Sagittal reconstruction images were performed. This study was performed with techniques to keep radiation doses as low as reasonably achievable, (ALARA). Individualized dose reduction techniques using automated exposure control or adjustment of mA and/or kV according to the patient size were employed. FINDINGS: Thoracic: Contrast is identified in the thecal space. There is moderate diffuse degenerative disc disease. There is a 20% upper endplate compression fracture at T10. Disc bulges are present throughout the mid and lower thoracic spine. There is no critical central canal stenosis. There is bilateral neural foraminal stenosis at T8-9, T9-10, T10-11, T11-12. There is moderate right neural foraminal stenosis at T1-2, T2-3, T3-4. Lumbar: There is severe diffuse degenerative disc disease. There is relative sparing at L2-3. There is minimal anterolisthesis at L5-S1. L1-2: There is facet hypertrophy and a broad-based disc bulge. There is moderate central canal stenosis to the right of midline where there is a small focal protrusion. There is moderate bilateral neural foraminal stenosis. L2-3: There is facet hypertrophy and a mild disc bulge. There is mild central canal stenosis. There is mild bilateral neural foraminal stenosis. L3-4: There is facet hypertrophy and a broad-based disc bulge. There is a central protrusion. There is severe central canal stenosis. There is moderate right and mild left neural foraminal stenosis. L4-5: There is severe facet arthropathy. There is a disc bulge in the left neural foramen. There is moderate central canal stenosis. There is moderate right and severe left neural foraminal stenosis. L5-S1: There is severe facet hypertrophy. There is a small central protrusion. There is mild central canal stenosis. There is severe bilateral neural foraminal stenosis. Procedure Note Sacha Jasso MD - 03/17/[address] WITH CONTRAST - POST MYELOGRAM; 03/17/2025 10:30 AM HISTORY: Chronic lumbar and thoracic back pain. PROCEDURE: After the patient's myelogram, axial images were obtained through the spine by computed tomography. Sagittal reconstruction images were performed. This study was performed with techniques to keep radiation doses as low as reasonably achievable, (ALARA). Individualized dose reduction techniques using automated exposure control or adjustment of mA and/or kV according to the patient size were employed. FINDINGS: Thoracic: Contrast is identified in the thecal space. There is moderate diffuse degenerative disc disease. There is a 20% upper endplate compression fracture at T10. Disc bulges are present throughout the mid and lower thoracic spine. There is no critical central canal stenosis. There is bilateral neural foraminal stenosis at T8-9, T9-10, T10-11, T11-12. There is moderate right neural foraminal stenosis at T1-2, T2-3, T3-4. Lumbar: There is severe diffuse degenerative disc disease. There is relative sparing at L2-3. There is minimal anterolisthesis at L5-S1. L1-2: There is facet hypertrophy and a broad-based disc bulge. There is moderate central canal stenosis to the right of midline where there is a small focal protrusion. There is moderate bilateral neural foraminal stenosis. L2-3: There is facet hypertrophy and a mild disc bulge. There is mild central canal stenosis. There is mild bilateral neural foraminal stenosis. L3-4: There is facet hypertrophy and a broad-based disc bulge. There is a central protrusion. There is severe central canal stenosis. There is moderate right and mild left neural foraminal stenosis. L4-5: There is severe facet arthropathy. There is a disc bulge in the left neural foramen. There is moderate central canal stenosis. There is moderate right and severe left neural foraminal stenosis. L5-S1: There is severe facet hypertrophy. There is a small central protrusion. There is mild central canal stenosis. There is severe bilateral neural foraminal stenosis. IMPRESSION: Degenerative disc disease as detailed above. Images reviewed, interpreted, and dictated by Figueroa Jasso MD Julisa [facility] [place] ORDERABLES Final Result * FL myelogram two or more regions (03/17/2025 10:45 AM EDT) Anatomical Region Laterality Modality L-spine, T-spine, C-spine, Chest, Pelvis, Abdome n X-Ray 03/17/2025 12:3 2 PM EDT Impressions 03/17/2025 1:08 PM EDT Degenerative changes as above. Please see CT scan report. Images reviewed, interpreted, and dictated by Dr. Brent Yanez. Transcribed by Tabatha Merritt PA-C. Narrative 03/17/2025 1:08 PM EDT THORACIC AND LUMBAR MYELOGRAM. HISTORY: Acute upper and lower back pain. ATTENDING PHYSICIAN: Dr. Yanez. PHYSICIAN EMPLOYMENT SERVICE SPECIALIST: Tabatha Merritt PA-C PROCEDURE: Informed consent was obtained. A time-out was performed, and the patient was prepped and draped in usual sterile fashion over the lumbar spine. Utilizing local anesthesia and direct fluoroscopic guidance, access to the thecal space was obtained at the L4-L5 level. 12 mL of Isovue 200 was gently injected. Spot and overhead films were obtained. 25 total images were performed. FINDINGS: There are 5 non rib-bearing lumbar vertebral bodies. Contrast is identified in the thecal space. There is narrowing throughout the lumbar spine. There is mild posterior subluxation of L1 on L2. There is minimal grade 1 anterolisthesis of L2 on L3 and L5 on S1. There are multiple indentations on the thecal sac with areas of canal narrowing. There is an area of mild nerve root cut off in the lumbar spine. Due to poor mobility of the patient, contrast opacification of the thoracic spine is limited on this exam. FLUOROSCOPY TIME: 3 minutes. Radiation exposure in Reference air Kerma: 156 mGy Procedure Note Brent Yanez MD - 03/17/2025 THORACIC AND LUMBAR MYELOGRAM. HISTORY: Acute upper and lower back pain. ATTENDING PHYSICIAN: Dr. Yanez. PHYSICIAN EMPLOYMENT SERVICE SPECIALIST: Tabatha Merritt PA-C PROCEDURE: Informed consent was obtained. A time-out was performed, and the patient was prepped and draped in usual sterile fashion over the lumbar spine. Utilizing local anesthesia and direct fluoroscopic guidance, access to the thecal space was obtained at the L4-L5 level. 12 mL of Isovue 200 was gently injected. Spot and overhead films were obtained. 25 total images were performed. FINDINGS: There are 5 non rib-bearing lumbar vertebral bodies. Contrast is identified in the thecal space. There is narrowing throughout the lumbar spine. There is mild posterior subluxation of L1 on L2. There is minimal grade 1 anterolisthesis of L2 on L3 and L5 on S1. There are multiple indentations on the thecal sac with areas of canal narrowing. There is an area of mild nerve root cut off in the lumbar spine. Due to poor mobility of the patient, contrast opacification of the thoracic spine is limited on this exam. FLUOROSCOPY TIME: 3 minutes. Radiation exposure in Reference air Kerma: 156 mGy IMPRESSION: Degenerative changes as above. Please see CT scan report. Images reviewed, interpreted, and dictated by Dr. Brent Yanez. Transcribed by Tabatha Merritt PA-C. Julisa Millay PA IMG FLUOROSCOPY ORDERABLES Final Result from Last 3 Months Insurance MEDICARE PART A B [employer] SR SUPP Care Teams Project Manager Retail Relationship Specialty Start Date End Date Alfred Cantu MD [address] [place] [address] [place] [address] PCP - General General Internal Medicine 08/29/22 Lyndsey Key MD [address] [facility] [address] [place] [address] Placement Coordinator Interventional Cardiology 08/29/22 Vik Corcoran MD [address] [facility] [address] [place] [address] Placement Coordinator Electrophysiology 05/19/24
--- OUTSIDE RECORDS SUMMARY | 2025-05-24 17:04 | XMS_ITS | Encounter Summary ---
Author Organization [employer] ([place], [place], [place], [place]) Address [address] [place] [address] Care Team Providers Care End User Support Specialist Name Role Phone Alfred Cantu MD Primary Care Provider Lyndsey Key MD Unavailable [phone] Vik Corcoran MD Unavailable Encounter Details Date Type Department Care Team (Late st Contact Info) Description 11/02/2018 Transcribed Document [facility] Family Medicine [facility] [place] [address] ProviderRashard MD [address] [place] [address] Social History Tobacco Use Types Packs/Day [...] Rashard ProviderMD - 11/02/2018 12:58 PM CDT [address] , [place] [address] Patient Copy Patient Information: Name: KATHY JIMENEZ Current Date: 11/02/2018 12:58:33 : 1940 Patient [address]: [address] [place] [address] [place] [address] Patient Attending Physician: CARMELLA MEI MD-INT Primary Care Provider: HARPREETY, NOT LISTED Primary Care Provider Phone: Discharge Diagnosis: Weight on Admission: 194 lb, 1 oz Weight at Discharge: 186 lb, 3 oz Comment: Follow-up Instructions: With: Address: When: CLARE LIVINGSTON [address] [facility], [address] [place], [place] [id number] Business (1) Within 1 week With: Address: When: KASH BUTTS [address] [facility], [address] [place] [id number] Business (1) Within 2 to 4 weeks [...] assistance finding a family MD please call [phone]. With: Address: When: NAZANIN NAVA [address] [facility] [address] [place], [place] [id number] Business (1) 9:00 AM Comments: You will [...] the dressing Medical Equipment for Home Use: [facility] for bedside commode and nebulizer [phone] Home Health Services: [facility] [phone] Immunizations Documented During Stay: No Immunizations Found [...] Discharge Instructions (if any): Final Medication List: [facility], [place] [address], [phone] amiodarone (amiodarone 200 mg oral tablet) 2 [...] Follow these instructions at home: Medicines??? Take zkjs-knb-lvhycae and prescription medicines only as told by [...] and water are not available, use hand bark spudder. ? Change your dressing as told by [...] radio towers. ??? Do notuse amateur ( StylePuzzle ) radio equipment or electric ( arc [...] 12/08/2007 Document Revised: 04/21/2017 Document Reviewed: 03/06/2015 Devotee Interactive Patient Education ? 2017 Devotee Inc. Smoking Hazards Smoking cigarettes is extremely [...] contain harmful chemicals. FOR MORE INFORMATION ??? Nigerian Lung Association: www.lung.org ??? Nigerian Cancer Society: www.cancer.org This information is not intended to replace advice given to you by your health care provider. Make sure you discuss any questions you have with your health care provider. Document Released: 09/04/2005 Document Revised: 11/18/2016 Document Reviewed: 01/17/2014 Devotee Interactive Patient Education ? 2017 Privalia. Heart-Healthy Eating Plan Many factors influence your [...] foods can I eat? Grains Breads, including Estonian, white, serenity, wheat, raisin, rye, oatmeal, and St Helenian. Tortillas that are neither fried nor made with lard or trans fat. Low-fat rolls, including hotdog and hamburger buns and Lebanese muffins. Biscuits. Muffins. Waffles. Pancakes. Light popcorn. [...] cheese. Whole milk cheeses, including blue (henry), [place] Gary, Brie, Hayes, Nigerian, Havarti, Uruguayan, cheddar, Camembert, and Craigmont. Whole or 2% milk that is liquid, [...] that has suet, meat fat, or shortening. Lima butter, hydrogenated oils, palm oil, coconut oil, [...] 05/06/2009 Document Revised: 02/14/2017 Document Reviewed: 01/19/2015 Devotee Interactive Patient Education ? 2017 Dev[employer]e Inc. How to Take a Pulse Your [...] 02/01/2004 Document Revised: 02/14/2017 Document Reviewed: 12/31/2016 ElseLast.fm Interactive Patient Education ? 2017 Dev[employer]e Inc. How to Take Your Blood Pressure [...] 07/10/2009 Document Revised: 08/18/2015 Document Reviewed: 09/22/2014 Devotee Interactive Patient Education ? 2017 Dev[employer]e Inc. Cardiomyopathy, Adult Cardiomyopathy is a long-term [...] Other treatments may include cardiac resynchronization therapy (HEEL CASER) or a left ventricular assist device (LVAD). [...] to manage stress. General instructions ??? Take eaer-kxz-dozvllx and prescription medicines only as told by [...] 10/10/2005 Document Revised: 03/25/2017 Document Reviewed: 01/27/2017 Devotee Interactive Patient Education ? 2017 Privalia. Medication Leaflets: carvedilol (PRABHJOT ve dil ole) [...] may report side effects to FDA at 6-858-XWW-3867. What other drugs will affect carvedilol? Other drugs may interact with carvedilol, including prescription and ixhw-dcc-wlrrzld medicines, vitamins, and herbal products. Tell each [...] to ensure that the information provided by [employer]ungle. ('Multum') is accurate, up-to-date, and complete, but no guarantee is made to that effect. Drug information contained herein may be time sensitive. Abyz information has been compiled for use by healthcare practitioners and consumers in the [place] and therefore Abyz does not warrant that uses outside of the [place] are appropriate, unless specifically indicated otherwise. Abyz's drug information does not endorse drugs, diagnose patients or recommend therapy. Survelas drug information is an informational resource designed [...] effective or appropriate for any given patient. Abyz does not assume any responsibility for any aspect of healthcare administered with the aid of information Abyz provides. The information contained herein is not intended to cover all possible uses, directions, precautions, warnings, drug interactions, allergic reactions, or adverse effects. If you have questions about the drugs you are taking, check with your doctor, nurse or pharmacist. Copyright 6237-2935 Billboard Jungle. Version: 15.01. Revision Date: 08/30/2013. albuterol and [...] may report side effects to FDA at 8-318-CVQ-1832. What other drugs will affect albuterol and ipratropium inhalation? Tell your doctor about all your current medicines and any you start or stop using, especially: ? a diuretic or 'water pill'; ?? heart or blood pressure medicine; ?? other beta-blockers; or ?? an antidepressant. This list is not complete. Other drugs may interact with albuterol and ipratropium, including prescription and whzm-cfi-okwmoyy medicines, vitamins, and herbal products. Not all [...] to ensure that the information provided by Billboard Jungle. ('Multum') is accurate, up-to-date, and complete, but no guarantee is made to that effect. Drug information contained herein may be time sensitive. Abyz information has been compiled for use by healthcare practitioners and consumers in the [place] and therefore Abyz does not warrant that uses outside of the [place] are appropriate, unless specifically indicated otherwise. Abyz's drug information does not endorse drugs, diagnose patients or recommend therapy. Survelas drug information is an informational resource designed [...] effective or appropriate for any given patient. Abyz does not assume any responsibility for any aspect of healthcare administered with the aid of information Abyz provides. The information contained herein is not intended to cover all possible uses, directions, precautions, warnings, drug interactions, allergic reactions, or adverse effects. If you have questions about the drugs you are taking, check with your doctor, nurse or pharmacist. Copyright 8585-8781 Billboard Jungle. Version: 7.01. Revision Date: 04/04/2017. guaifenesin (gwye [...] missed dose. What happens if I overdose? documented in this encounter Plan of Treatment Upcoming Encounters Date Type Department Care Team (Late st Contact Info) Description 08/23/2025 12:45 PM EST Office Visit [facility] Electrophysiology [address] [place] [address] Vik Corcoran MD [address] [facility] [address] [place], [place] [id number] documented as of this encounter Visit Diagnoses Not on filedocumented in this encounter Care Teams End User Support Specialist Relationship Specialty Start Date End Date Alfred Cantu MD [address] [place] [address] [place] [address] PCP - General General Internal Medicine 08/29/22 [place] [address] [place] [address] [address] Floor Hand Interventional Cardiology 08/29/22 Vik Corcoran MD [address] [place] [address] [address] Floor Hand Electrophysiology 05/19/24 documented as of this encounter
--- OUTSIDE RECORDS SUMMARY | 2025-05-24 17:04 | XMS_ITS | Encounter Summary ---
Author Organization [employer] ([place], [place], [place], [place]) Address [address] [place] [address] Care Team Providers Care Rn Orthopaedic Name Role Phone Alfred Cantu MD Primary Care Provider [phone] Lyndsey Key MD Unavailable [phone] Vik Corcoran MD Unavailable Encounter Details Date Type Department Care Team (Late st Contact Info) Description 10/31/2018 Transcribed Document [facility] [place] [facility] [place] [address] ProviderRashard MD [address] [place] [address] Social History Tobacco Use Types Packs/Day [...] Rashard ProviderMD - 10/31/2018 2:00 AM CDT Audio Visual Specialist Details Entered On: 10/31/2018 1:26 EDT Performed [...] Ivet Smith RN - 10/31/2018 1:26 EDT Electronically signed by Kavita, [facility] Conversion Veterinary Microbiologist Cerner at 11/28/2022 5:29 PM CDT documented in this encounter Plan of Treatment Upcoming Encounters Date Type Department Care Team (Late st Contact Info) Description 08/23/2025 12:45 PM EST Office Visit [facility] Electrophysiology [address] [place] [phone] Vik Corcoran MD [address] [place] [address] [address] [place], [place] [id number] documented as of this encounter Visit Diagnoses Not on filedocumented in this encounter Care Teams Rn Orthopaedic Relationship Specialty Start Date End Date Alfred Cantu MD [address] [place] [address] [place] [address] PCP - General General Internal Medicine 08/29/22 Lyndsey Key MD [address] [place] [address] [address] Travel Occupational Therapist Interventional Cardiology 08/29/22 Vik Corcoran MD [address] [place] [address] [id number] Travel Occupational Therapist Electrophysiology 05/19/24 documented as of this encounter
--- OUTSIDE RECORDS SUMMARY | 2025-05-24 17:04 | XMS_ITS | Encounter Summary ---
Author Organization [employer] ([place], [place], [place], [place]) Address [address] [place] [address] Care Team Providers Care Stone Planer Name Role Phone Alfred Castillo MD Primary Care Provider [phone] Lyndsey Key MD Unavailable [phone] Vik Corcoran MD Unavailable Encounter Details Date Type Department Care Team (Late st Contact Info) Description 11/02/2018 Transcribed Document [facility] [facility] [place] [address] ProviderRashard MD [address] [place] [address] Social History Tobacco Use Types Packs/Day [...] Rashard ProviderMD - 11/02/2018 1:53 PM CDT [address] , [place] [address] Patient Copy Patient Information: Name: KATHY JIMENEZ Current Date: 11/02/2018 13:53:47 : 1940 Patient Address: [address] [place] [address] [place] [address] Patient Attending Physician: CARMELLA MEI MD-INT Primary Care Provider: HARPREETY, NOT LISTED Primary Care Provider Phone: Discharge Diagnosis: Weight on Admission: 194 lb, 1 oz Weight at Discharge: 186 lb, 3 oz Comment: Follow-up Instructions: With: Address: When: ALFRED CASTILLO [address] [facility], [address] [place], [place] [phone] Business (1) Within 1 week Comments: The office is closed today until 2:00 PM this Friday. Please call to make a 1 week follow-up appointment and discuss 3-[address] scan. Also discuss antibiotic therapy. With: Address: When: KASH BUTTS [address] [facility], [address] [place] [address] Business (1) 11:00 AM Comments: Bring Ins Card, Photo ID, Ins Co-pay Bring discharge instructions with you Call for follow up appointment Return with blood work With: Address: When: CLARE LIVINGSTON [address] [facility], [address] [place], [place] [phone] Business (1) Within As needed Comments: Please call to make a follow-up appointment IF you are unable to get in with Dr. Castillo within 1 week. With: Address: When: NAZANIN NAVA [address] [place] [address]., [address] [place] [address] Business (1) 9:00 AM Comments: [...] dressing Medical Equipment for Home Use: [facility] for bedside commode and nebulizer [phone] Home Health Services: [facility] [phone] Immunizations Documented During Stay: No Immunizations Found [...] Discharge Instructions (if any): Final Medication List: [facility], [place] [address], [phone] amiodarone (amiodarone 200 mg oral tablet) 2 [...] Follow these instructions at home: Medicines??? Take zfvy-ptg-ntzktlt and prescription medicines only as told by [...] and water are not available, use hand master craftsman. ? Change your dressing as told by [...] radio towers. ??? Do notuse amateur ( kidthing ) radio equipment or electric ( arc [...] 12/08/2007 Document Revised: 04/21/2017 Document Reviewed: 03/06/2015 Truzip Interactive Patient Education ? 2017 Truzip Inc. Smoking Hazards Smoking cigarettes is extremely [...] contain harmful chemicals. FOR MORE INFORMATION ??? Vincentian Lung Association: www.lung.org ??? Vincentian Cancer Society: www.cancer.org This information is not intended to replace advice given to you by your health care provider. Make sure you discuss any questions you have with your health care provider. Document Released: 09/04/2005 Document Revised: 11/18/2016 Document Reviewed: 01/17/2014 Truzip Interactive Patient Education ? 2017 SalesGossip. Heart-Healthy Eating Plan Many factors influence your [...] foods can I eat? Grains Breads, including Yakut, white, serenity, wheat, raisin, rye, oatmeal, and German. Tortillas that are neither fried nor made with lard or trans fat. Low-fat rolls, including hotdog and hamburger buns and Jordanian muffins. Biscuits. Muffins. Waffles. Pancakes. Light popcorn. [...] cheese. Whole milk cheeses, including blue (henry), [place] Gary, Brie, Hayes, Vincentian, Havarti, Solomon Islander, cheddar, Camembert, and Brocket. Whole or 2% milk that is liquid, [...] that has suet, meat fat, or shortening. [place] butter, hydrogenated oils, palm oil, coconut oil, [...] 05/06/2009 Document Revised: 02/14/2017 Document Reviewed: 01/19/2015 Truzip Interactive Patient Education ? 2017 Truzip Inc. How to Take a Pulse Your [...] 02/01/2004 Document Revised: 02/14/2017 Document Reviewed: 12/31/2016 Truzip Interactive Patient Education ? 2017 Truzip Inc. How to Take Your Blood Pressure [...] 09/22/2014 Elsevier Interactive Patient Education ? 2017 Truzip Inc. Cardiomyopathy, Adult Cardiomyopathy is a long-term [...] Other treatments may include cardiac resynchronization therapy (GLOVE PARTS CUTTER) or a left ventricular assist device (LVAD). [...] to manage stress. General instructions ??? Take kyiu-yqv-jzbkbem and prescription medicines only as told by [...] 10/10/2005 Document Revised: 03/25/2017 Document Reviewed: 01/27/2017 Truzip Interactive Patient Education ? 2017 SalesGossip. Medication Leaflets: carvedilol (PRABHJOT ve dil ole) [...] may report side effects to FDA at 5-709-IBJ-9894. What other drugs will affect carvedilol? Other drugs may interact with carvedilol, including prescription and ctaq-npg-qqhemzk medicines, vitamins, and herbal products. Tell each [...] to ensure that the information provided by PolyGen Pharmaceuticals. ('Multum') is accurate, up-to-date, and complete, but no guarantee is made to that effect. Drug information contained herein may be time sensitive. PROnoise information has been compiled for use by healthcare practitioners and consumers in the [place] and therefore PROnoise does not warrant that uses outside of the [place] are appropriate, unless specifically indicated otherwise. PROnoise's drug information does not endorse drugs, diagnose patients or recommend therapy. [employer] River [employer] drug information is an informational resource designed [...] effective or appropriate for any given patient. PROnoise does not assume any responsibility for any aspect of healthcare administered with the aid of information PROnoise provides. The information contained herein is not intended to cover all possible uses, directions, precautions, warnings, drug interactions, allergic reactions, or adverse effects. If you have questions about the drugs you are taking, check with your doctor, nurse or pharmacist. Copyright 5197-5818 PolyGen Pharmaceuticals. Version: 15.01. Revision Date: 08/30/2013. albuterol and [...] may report side effects to FDA at 7-731-TCQ-0543. What other drugs will affect albuterol and ipratropium inhalation? Tell your doctor about all your current medicines and any you start or stop using, especially: ? a diuretic or 'water pill'; ?? heart or blood pressure medicine; ?? other beta-blockers; or ?? an antidepressant. This list is not complete. Other drugs may interact with albuterol and ipratropium, including prescription and gtum-cgw-nxggqom medicines, vitamins, and herbal products. Not all [...] to ensure that the information provided by PolyGen Pharmaceuticals. ('Multum') is accurate, up-to-date, and complete, but no guarantee is made to that effect. Drug information contained herein may be time sensitive. PROnoise information has been compiled for use by healthcare practitioners and consumers in the [place] and therefore PROnoise does not warrant that uses outside of the [place] are appropriate, unless specifically indicated otherwise. PROnoise's drug information does not endorse drugs, diagnose patients or recommend therapy. [employer] drug information is an informational resource designed [...] effective or appropriate for any given patient. PROnoise does not assume any responsibility for any aspect of healthcare administered with the aid of information PROnoise provides. The information contained herein is not intended to cover all possible uses, directions, precautions, warnings, drug interactions, allergic reactions, or adverse effects. If you have questions about the drugs you are taking, check with your doctor, nurse or pharmacist. Copyright 5119-8902 PolyGen Pharm[employer]. Version: 7.01. Revision Date: 04/04/2017. guaifenesin (gwye [...] Visit [facility] Electrophysiology [address] [place] [address] Vik Corcoran MD [address] [facility] [address] [place] [address] documented as of this encounter Visit Diagnoses Not on filedocumented in this encounter Care Teams Stone Planer Relationship Specialty Start Date End Date Alfred Castillo MD [address] [place] [address] [place] [address] PCP - General General Internal Medicine 08/29/22 Lyndsey Key MD [address] [facility] [address] [address] Office Machine Embossograph Operator Interventional Cardiology 08/29/22 [place] [address] [place] [address] [address] Office Machine Embossograph Operator Electrophysiology 05/19/24 documented as of this encounter
--- OUTSIDE RECORDS SUMMARY | 2025-05-24 17:04 | XMS_ITS | Encounter Summary ---
Author Organization [employer] ([place], [place], [place], [place]) Address [address] [place] [address] Care Team Providers Care Safe Expert Name Role Phone Alfred Cantu MD Primary Care Provider [phone] Lyndsey Key MD Unavailable [phone] Vik Corcoran MD Unavailable Encounter Details Date Type Department Care Team (Late st Contact Info) Description 11/01/2018 Transcribed Document [facility] [place] Family Medicine [facility] [place] [address] ProviderRashard MD [address] [place] [address] Social History Tobacco Use Types Packs/Day [...] Ashu Ross, Rn - 11/01/2018 4:40 EDT documented in this encounter Plan of Treatment Upcoming Encounters Date Type Department Care Team (Late st Contact Info) Description 08/23/2025 12:45 PM EST Office Visit [facility] Electrophysiology [address] [place] [address] Vik Corcoran MD [address] [place] [address] [address] [place] [address] documented as of this encounter Visit Diagnoses Not on filedocumented in this encounter Care Teams Safe Expert Relationship Specialty Start Date End Date Alfred Cantu MD [address] [place] [address] PCP - General General Internal Medicine 08/29/22 Lyndsey Key MD [address] [place] [address] [address] Arborist Interventional Cardiology 08/29/22 Vik Corcoran MD [address] [place] [address] [address] Arborist Electrophysiology 05/19/24 documented as of this encounter
--- OUTSIDE RECORDS SUMMARY | 2025-05-24 17:04 | XMS_ITS | Encounter Summary ---
Author Organization [employer] ([place], [place], [place], [place]) Address [address] [place] [address] Care Team Providers Care Scout Executive Name Role Phone Alfred Cantu MD Primary Care Provider [phone] Lyndsey Key MD Unavailable [phone] Vik Corcoran MD Unavailable Encounter Details Date Type Department Care Team (Late st Contact Info) Description 10/31/2018 Transcribed Document [facility] [place] [facility] [address] ProviderRashard MD [address] [place] [address] Social History Tobacco Use Types Packs/Day [...] Description 08/23/2025 12:45 PM EST Office Visit [facility] Electrophysiology [address] [place] [address] [place] [address] [place] [address] [address] [place] [address] documented as of this encounter Visit Diagnoses Not on filedocumented in this encounter Care Teams Scout Executive Relationship Specialty Start Date End Date Alfred Cantu MD [address] [place] [address] PCP - General General Internal Medicine 08/29/22 [place] [address] [place] [address] [address] Product Management Manager Interventional Cardiology 08/29/22 Vik Corcoran MD [address] [place] [address] [address] Product Management Manager Electrophysiology 05/19/24 documented as of this encounter
--- OUTSIDE RECORDS SUMMARY | 2025-05-24 17:04 | XMS_ITS | Encounter Summary ---
Author Organization [employer] ([place], [place], [place], [place]) Address [address] [place] [address] Care Team Providers Care Cotton Machine Operator Name Role Phone Alfred Cantu MD Primary Care Provider [phone] Lyndsey Key MD Unavailable [phone] Vik Corcoran MD Unavailable Encounter Details Date Type Department Care Team (Late st Contact Info) Description 10/20/2018 Transcribed Document [facility] [place] [facility] [place] [address] ProviderRashard MD [address] [place] [address] Social History Tobacco Use Types Packs/Day [...] #2 Relationship : Son Primary Language : Turkish Communication Barrier : None Vernon Olsen RN [...] Scale Risk Level : 25-45 Medium Risk Pyote Fall Interventions : Adequate lighting, Assistive devices [...] Source : Stated Height Entry Format : [place] Height, Feet : 5 ft(Converted to: 152 [...] Body Mass Index : 38 kg/m2 (HI) [place] Body Weight : 45 kg Vernon Olsen [...] - 10/20/2018 23:50 EDT Electronically signed by [facility] Conversion Long Chain Dyeing Machine Operator Cerner at 11/28/2022 5:44 PM CDT documented in this encounter Plan of Treatment Upcoming Encounters Date Type Department Care Team (Late st Contact Info) Description 08/23/2025 12:45 PM EST Office Visit [facility] Electrophysiology [address] [place] [address] Vik Corcoran MD [address] [place] [address] [address] [place] [id number] documented as of this encounter Visit Diagnoses Not on filedocumented in this encounter Care Teams Cotton Machine Operator Relationship Specialty Start Date End Date Alfred Cantu MD [address] [place] [address] PCP - General General Internal Medicine 08/29/22 [place] [address] [place] [address] [address] [place] [address] Heel Varnisher Interventional Cardiology 08/29/22 [place] [address] [place] [address] [address] Heel Varnisher Electrophysiology 05/19/24 documented as of this encounter
--- OUTSIDE RECORDS SUMMARY | 2025-05-24 17:04 | XMS_ITS | Encounter Summary ---
Author Organization [employer] ([place], [place], [place], [place]) Address [address] [place] [address] Care Team Providers Care Process Control Manager Name Role Phone Alfred Cantu MD Primary Care Provider [phone] Lyndsey Key MD Unavailable [phone] Vik Corcoran MD Unavailable Encounter Details Date Type Department Care Team (Late st Contact Info) Description 11/01/2018 Transcribed Document [facility] [place] [address] ProviderRashard MD [address] [place] [address] [id number] Social History Tobacco Use Types Packs/Day Years [...] RT_Q6H, PRN: Cough Eliquis: 5 mg, Oral, [id number] Mucinex: 1,200 mg, Oral, BID Pulmicort Respules: [...] 500 mg oral tablet: 1 Tab, Oral, [id number], for 7 Day(s), 7 Tab, 0 Refill(s) [...] mg tab 5 mg 1 Tab, Oral, [id number] aspirin 81 mg chew tab 81 mg [...] History of obstructive sleep apnea / IMO [id number] / Confirmed, Active Problems (9) Allergic asthma [...] tenderness, No swelling, No deformity. Integumentary: Warm, [place], Moist, No rash. Neurologic: Alert, Oriented, Normal [...] Description 08/23/2025 12:45 PM EST Office Visit [facility] Electrophysiology [address] [place] [phone] Vik Corcoran MD [address] [place] [address] [address] [place] [address] documented as of this encounter Visit Diagnoses Not on filedocumented in this encounter Care Teams Process Control Manager Relationship Specialty Start Date End Date Alfred Cantu MD [address] [place] [address] PCP - General General Internal Medicine 08/29/22 Lyndsey Key MD [address] [place] [address] [address] [place] [address] Winding Machine Operator Interventional Cardiology 08/29/22 Vik Corcoran MD [address] [place] [address] [address] [place] [address] Winding Machine Operator Electrophysiology 05/19/24 documented as of this encounter
--- OUTSIDE RECORDS SUMMARY | 2025-05-24 17:04 | XMS_ITS | Encounter Summary ---
Author Organization [employer] ([place], [place], [place], [place]) Address [address] [place] [address] Care Team Providers Care Spooler Operator Name Role Phone Alfred Cantu MD Primary Care Provider [phone] Lyndsey Key MD Unavailable [phone] Vik Corcoran MD Unavailable Encounter Details Date Type Department Care Team (Late st Contact Info) Description 10/20/2018 Transcribed Document [facility] [place] [address] [place] [address] ProviderRashard MD [address] [place] [address] Social History Tobacco Use Types Packs/Day [...] : readmit risk: moderate 59. transfer from [facility]. acute excerbation systolic heart failure. ef 25-30%. severe mitral regurg. severe nicm. CAP. for biv icd today. bipap 50%/02 4-6L nc. zithromax po. zosyn iv. ca gluconate iv x 2. kcl 20meq x 1. na phos iv x 1. PT consult. spoke with Ms. Jimenez. explained role of case management. pt resides in [facility]. she is adl independent. drives car. has cane, walker & cpap provided by [facility]. no current home health or previous [...] unit, [facility] Contact Information : [facility] [phone] Special Services and Community Resources : None CONNIE LIVE RN - 10/21/2018 13:02 EDT documented in this encounter Plan of Treatment Upcoming Encounters Date Type Department Care Team (Late st Contact Info) Description 08/23/2025 12:45 PM EST Office Visit [facility] Electrophysiology [address] [place] [address] Vik Corcoran MD [address] [facility] [address] [place] [address] documented as of this encounter Visit Diagnoses Not on filedocumented in this encounter Care Teams Spooler Operator Relationship Specialty Start Date End Date Alfred Cantu MD [address] [place] [address] PCP - General General Internal Medicine 08/29/22 Lyndsey Key MD [address] [place] [address] [address] [place] [address] Receiving Associate Interventional Cardiology 08/29/22 Vik Corcoran MD [address] [place] [address] [address] [place] [address] [phone] Receiving Associate Electrophysiology 05/19/24 documented as of this encounter
--- OUTSIDE RECORDS SUMMARY | 2025-05-24 17:04 | XMS_ITS | Encounter Summary ---
Author Organization [employer] ([place], [place], [place], [place]) Address [address] [place] [address] Care Team Providers Care Social Work Supervisor Name Role Phone Alfred Cantu MD Primary Care Provider [phone] Lyndsey Key MD Unavailable [phone] Vik Corcoran MD Unavailable Encounter Details Date Type Department Care Team (Late st Contact Info) Description 10/31/2018 Transcribed Document [facility] [place] [facility] [place] [address] ProviderRashard MD [address] [place] [address] Social History Tobacco Use Types Packs/Day [...] 10/31/2018 18:36 EDT Electronically signed by [facility] Conversion Parts Sales Counterperson Cerner at 11/28/2022 5:38 PM CDT documented in this encounter Plan of Treatment Upcoming Encounters Date Type Department Care Team (Late st Contact Info) Description 08/23/2025 12:45 PM EST Office Visit [facility] Electrophysiology [address] [place] [address] [place] [address] [place] [address] [address] [place], [place] [phone] documented as of this encounter Visit Diagnoses Not on filedocumented in this encounter Care Teams Social Work Supervisor Relationship Specialty Start Date End Date Alfred Cantu MD [address] [place] [address] PCP - General General Internal Medicine 08/29/22 [place] [address] [place] [address] [address] [place] [address] Product Manager Financial Services Interventional Cardiology 08/29/22 [place] [address] [place] [address] [address] [place], [place] [id number] Product Manager Financial Services Electrophysiology 05/19/24 documented as of this encounter
--- OUTSIDE RECORDS SUMMARY | 2025-05-24 17:04 | XMS_ITS | Encounter Summary ---
Author Organization [employer] ([place], [place], [place], [place]) Address [address] [place] [address] Care Team Providers Care Correctional Substance Abuse Counselor Name Role Phone Alfred Cantu MD Primary Care Provider [phone] Lyndsey Key MD Unavailable [phone] Vik Corcoran MD Unavailable Encounter Details Date Type Department Care Team (Late st Contact Info) Description 11/01/2018 Transcribed Document [facility] [place] [facility] [address] ProviderRashard MD [address] [place] [address] Social History Tobacco Use Types Packs/Day [...] Rashard ProviderMD - 11/01/2018 2:00 AM CDT Comfort Filler Details Entered On: 11/01/2018 4:40 EDT Performed [...] 11/01/2018 4:39 EDT Electronically signed by [facility], [facility] Conversion Short Haul Driver Cerner at 11/28/2022 5:34 PM CDT documented in this encounter Plan of Treatment Upcoming Encounters Date Type Department Care Team (Late st Contact Info) Description 08/23/2025 12:45 PM EST Office Visit [facility] Electrophysiology [address] [place] [phone] Vik Corcoran MD [address] [place] [address] [address] [place], [place] [phone] documented as of this encounter Visit Diagnoses Not on filedocumented in this encounter Care Teams Correctional Substance Abuse Counselor Relationship Specialty Start Date End Date Alfred Cantu MD [address] [place] [address] PCP - General General Internal Medicine 08/29/22 Lyndsey Key MD [address] [place] [address] [address] Bias Cutter Interventional Cardiology 08/29/22 Vik Corcoran MD [address] [place] [address] [address] Bias Cutter Electrophysiology 05/19/24 documented as of this encounter
--- OUTSIDE RECORDS SUMMARY | 2025-05-24 17:04 | XMS_ITS | Encounter Summary ---
Author Organization [employer] ([place], [place], [place], [place]) Address [address] [place] [address] Care Team Providers Care Aircraft Cleaner Name Role Phone Alfred Cantu MD Primary Care Provider [phone] Lyndsey Key MD Unavailable [phone] Vik Corcoran MD Unavailable Encounter Details Date Type Department Care Team (Late st Contact Info) Description 10/31/2018 Transcribed Document [facility] [place] [facility] [place] [address] ProviderRashard MD [address] [place] [id number] Social History Tobacco Use Types Packs/Day Years [...] RT_Q6H, PRN: Cough Eliquis: 5 mg, Oral, [id number] Mucinex: 1,200 mg, Oral, BID Normal Saline [...] 500 mg oral tablet: 1 Tab, Oral, [id number], for 7 Day(s), 7 Tab, 0 Refill(s) [...] mg tab 5 mg 1 Tab, Oral, [id number] aspirin 81 mg chew tab 81 mg [...] History of obstructive sleep apnea / IMO [id number] / Confirmed, Active Problems (9) Allergic asthma [...] tenderness, No swelling, No deformity. Integumentary: Warm, [place], Moist, No rash. Neurologic: Alert, Oriented, Normal [...] Description 08/23/2025 12:45 PM EST Office Visit [facility] Electrophysiology [address] [place] [address] [place] [address] [place] [address] [address] [place] [address] documented as of this encounter Visit Diagnoses Not on filedocumented in this encounter Care Teams Aircraft Cleaner Relationship Specialty Start Date End Date Alfred Cantu MD [address] [place] [address] PCP - General General Internal Medicine 08/29/22 [place] [address] [place] [address] [address] [place] [address] Analog Design Engineer Interventional Cardiology 08/29/22 Vik Corcoran MD [address] [place] [address] [address] Analog Design Engineer Electrophysiology 05/19/24 documented as of this encounter
--- OUTSIDE RECORDS SUMMARY | 2025-05-24 17:04 | XMS_ITS | Encounter Summary ---
Author Organization [employer] ([place], [place], [place], [place]) Address [address] [place] [address] Care Team Providers Care Reeling Machine Setup Operator Name Role Phone Alfred Cantu MD Primary Care Provider [phone] Lyndsey Key MD Unavailable [phone] Vik Corcoran MD Unavailable Encounter Details Date Type Department Care Team (Late st Contact Info) Description 11/02/2018 Transcribed Document [facility] Family Medicine [facility] [place] [address] ProviderRashard MD [address] [place] [address] Social History Tobacco Use Types Packs/Day [...] Rashard ProviderMD - 11/02/2018 12:22 PM CDT [address] , [place] [address] Patient Copy Patient Information: Name: KATHY JIMENEZ Current Date: 11/02/2018 12:22:47 : 1940 Patient Address: [address] [place] [address] [place] [address] Patient Attending Physician: CARMELLA MEI MD-INT Primary Care Provider: ZAY, NOT LISTED Primary Care Provider Phone: Discharge Diagnosis: Weight on Admission: 194 lb, 1 oz Weight at Discharge: 186 lb, 3 oz Comment: Follow-up Instructions: With: Address: When: KASH BUTTS [address] [place] [address], [address] [place] [address] Business (1) Within 2 to [...] assistance finding a family MD please call [phone]. With: Address: When: NAZANIN NAVA [address] [place] [address]., [address] [place] [phone] [facility] (1) 9:00 AM Comments: You will have [...] Medical Equipment for Home Use: [facility] for bedside commode and nebulizer [phone] Home Health Services: [facility] [phone] Immunizations Documented During Stay: No Immunizations Found [...] Discharge Instructions (if any): Final Medication List: [facility], [place] [address], [phone] amiodarone (amiodarone 200 mg oral tablet) 2 [...] Follow these instructions at home: Medicines??? Take aeui-nsi-igpvfoi and prescription medicines only as told by [...] and water are not available, use hand skiver machine. ? Change your dressing as told by [...] radio towers. ??? Do notuse amateur ( Dream home renovations ) radio equipment or electric ( arc [...] 12/08/2007 Document Revised: 04/21/2017 Document Reviewed: 03/06/2015 [employer] Interactive Patient Education ? 2017 [employer]. Smoking Hazards Smoking cigarettes is extremely bad [...] contain harmful chemicals. FOR MORE INFORMATION ??? [place] Citizen Lung Association: www.lung.org ??? [place] Citizen Cancer Society: www.cancer.org This information is not intended to replace advice given to you by your health care provider. Make sure you discuss any questions you have with your health care provider. Document Released: 09/04/2005 Document Revised: 11/18/2016 Document Reviewed: 01/17/2014 ElseTaskhero.com Interactive Patient Education ? 2017 [employer] Inc. Heart-Healthy Eating Plan Many factors influence [...] foods can I eat? Grains Breads, including Micronesian, white, serenity, wheat, raisin, rye, oatmeal, and Citizen Of [place]. Tortillas that are neither fried nor made with lard or trans fat. Low-fat rolls, including hotdog and hamburger buns and Slovenian muffins. Biscuits. Muffins. Waffles. Pancakes. Light popcorn. [...] cheese. Whole milk cheeses, including blue (henry), [place], Brie, [place], [place] Citizen, Havarti, Maldivian, cheddar, Camembert, and Neon. Whole or 2% milk that is liquid, [...] that has suet, meat fat, or shortening. [place] butter, hydrogenated oils, palm oil, coconut oil, [...] 05/06/2009 Document Revised: 02/14/2017 Document Reviewed: 01/19/2015 [employer] Interactive Patient Education ? 2017 [employer] Inc. How to Take a Pulse Your [...] 02/01/2004 Document Revised: 02/14/2017 Document Reviewed: 12/31/2016 [employer] Interactive Patient Education ? 2017 [employer] Inc. How to Take Your Blood Pressure [...] 07/10/2009 Document Revised: 08/18/2015 Document Reviewed: 09/22/2014 [employer] Interactive Patient Education ? 2017 [employer] Inc. Cardiomyopathy, Adult Cardiomyopathy is a long-term [...] Other treatments may include cardiac resynchronization therapy (SALESPERSON WIGS) or a left ventricular assist device (LVAD). [...] to manage stress. General instructions ??? Take gtuq-zgy-rmzorlo and prescription medicines only as told by [...] 01/27/2017 Elsevier Interactive Patient Education ? 2017 [employer] Inc. Medication Leaflets: bumetanide (oral/injection) (bystephen ORTEGA [...] may report side effects to FDA at 6-272-RVK-5420. What other drugs will affect bumetanide? Bumetanide [...] drugs may affect bumetanide, including prescription and lwoa-rfo-hhddpxz medicines, vitamins, and herbal products. Not all [...] to ensure that the information provided by [employer]. ('Multum') is accurate, up-to-date, and complete, but no guarantee is made to that effect. Drug information contained herein may be time sensitive. Me[employer] information has been compiled for use by healthcare practitioners and consumers in the [place] and therefore [employer] does not warrant that uses outside of the [place] are appropriate, unless specifically indicated otherwise. [employer] drug information does not endorse drugs, diagnose patients or recommend therapy. [employer] drug information is an informational resource designed [...] effective or appropriate for any given patient. [employer] does not assume any responsibility for any aspect of healthcare administered with the aid of information Me[employer] provides. The information contained herein is not intended to cover all possible uses, directions, precautions, warnings, drug interactions, allergic reactions, or adverse effects. If you have questions about the drugs you are taking, check with your doctor, nurse or pharmacist. Copyright 9302-8077 [employer]. Version: 7.01. Revision Date: 08/13/2018. carvedilol (PRABHJOT [...] may report side effects to FDA at 9-889-MPR-9455. What other drugs will affect carvedilol? Other drugs may interact with carvedilol, including prescription and itiw-zfe-vimnolp medicines, vitamins, and herbal products. Tell each [...] to ensure that the information provided by [employer]. ('[employer]') is accurate, up-to-date, and complete, but no guarantee is made to that effect. Drug information contained herein may be time sensitive. Me[employer] information has been compiled for use by healthcare practitioners and consumers in the [place] and therefore [employer] does not warrant that uses outside of the [place] are appropriate, unless specifically indicated otherwise. [employer]is [employer] drug information does not endorse drugs, diagnose patients or recommend therapy. [employer]is [employer] drug information is an informational resource designed [...] effective or appropriate for any given patient. [employer] does not assume any responsibility for any aspect of healthcare administered with the aid of information Me[employer] provides. The information contained herein is not intended to cover all possible uses, directions, precautions, warnings, drug interactions, allergic reactions, or adverse effects. If you have questions about the drugs you are taking, check with your doctor, nurse or pharmacist. Copyright 9076-1856 [employer]. Version: 15.. Revision Date: 08/30/2013. albuterol and [...] medicine to make up the missed dose. documented in this encounter Plan of Treatment Upcoming Encounters Date Type Department Care Team (Late st Contact Info) Description 08/23/2025 12:45 PM EST Office Visit [facility] Electrophysiology [address] [place] [address] Vik Corcoran MD [address] [facility] [address] [place] [address] documented as of this encounter Visit Diagnoses Not on filedocumented in this encounter Care Teams Reeling Machine Setup Operator Relationship Specialty Start Date End Date Alfred Cantu MD [address] [place] [address] PCP - General General Internal Medicine 08/29/22 Lyndsey Key MD [address] [place] [address] [address] Airport Clerk Interventional Cardiology 08/29/22 Vik Corcoran MD [address] [place] [address] [id number] Airport Clerk Electrophysiology 05/19/24 documented as of this encounter
--- OUTSIDE RECORDS SUMMARY | 2025-05-24 17:04 | XMS_ITS | Encounter Summary ---
Author Organization [employer] ([place], [place], [place], [place]) Address [address] [place] [address] Care Team Providers Care Medical Education Coordinator Name Role Phone Alfred Cantu MD Primary Care Provider [phone] Lyndsey Key MD Unavailable [phone] Vik Corcoran MD Unavailable Encounter Details Date Type Department Care Team (Late st Contact Info) Description 11/01/2018 Transcribed Document [facility] [place] [facility] [place] [address] ProviderRashard MD [address] [place] [address] Social History Tobacco Use Types Packs/Day [...] apixaban (Eliquis) - 5 mg, Oral, Tab, [id number], Routine Cardiovascular carvedilol (Coreg) - 12.5 mg, [...] PRN for Other (See Comment), Routine *Duplicate* SURVEY WORKERS SUPERVISOR miconazole topical (Desenex AF 2% topical powder) [...] EST Office Visit [facility] Electrophysiology [address] [place] [address] Vik Corcoran MD [address] [place] [address] [address] [place] [id number] documented as of this encounter Visit Diagnoses Not on filedocumented in this encounter Care Teams Medical Education Coordinator Relationship Specialty Start Date End Date Alfred Cantu MD [address] [place] [id number] PCP - General General Internal Medicine 08/29/22 Lyndsey Key MD [address] [facility] [address] [place] [address] Geophysical Laboratory Supervisor Interventional Cardiology 08/29/22 Vik Corcoran MD [address] [facility] [address] [place] [address] Geophysical Laboratory Supervisor Electrophysiology 05/19/24 documented as of this encounter
--- OUTSIDE RECORDS SUMMARY | 2025-05-24 17:04 | XMS_ITS | Data Portability ---
Author Organization AJ Juan [facility] CLOSED Address [address] [facility] [address] [place] [address] Assessment Encounter Date Assessment Date Assessment LastModified by Organization Details LastModified Time 03/30/2025 03/30/2025 Patient was seen today for follow-up evaluation of dorsal column SCS trial. Patient having a difficult time estimating pain relief. She has no pain with sitting though she has bilateral buttock and hip pain with standing and ambulation. She has an antalgic gait. She has been resting at home. As a result she has been reprogrammed and we will continue the trial until Friday. . There is no evidence of erythema drainage or induration at the lead insertion sites. Neurologic examination was appropriate. She is encouraged to stand and ambulate, with her walker at home to test programming. Will consider moving forward with permanent implant after follow-up on Friday. That metals sales representative is present today for programming [email or web address] Not available 03/30/2025 15:41:15 04/01/2025 04/01/2025 This is an 84-year-old female seen today for follow-up evaluation of SCS trial. Unfortunately she noticed no significant improvement during the trial. The system was removed intact today. She will restart aspirin 24 hours later. She would like to proceed with an injection. Given her L4-5 stenosis recommend L3-4 IL ROCK. [email or web address] Not available 04/01/2025 10:17:59 04/27/2025 04/27/2025 This is an 84-year-old female seen today for follow-up evaluation of lumbosacral pain. This is worse with standing and walking and endorses symptoms into the legs and feet. Unfortunately ROCK, RFA and SI joint injection have not provided durable relief. Pain seems to be worse now than previously. She is quite emotional about the pain that is ongoing without notable improvement Spinal cord stimulator trial was performed however permanent implant was ultimately not pursued as patient did not feel this offer adequate pain relief. She presents today to discuss treatment options and pursuing spinal cord stimulator permanent implant. Her main concern today is buttock pain, bilateral lower extremity weakness and frequent falls as a result of weakness. PMH: A.fib (ASA) PSHx: Pacemaker (not MRI compatible) 1. CT scan lumbar spine 06/30/2023 demonstrates severe L4-5 spinal canal stenosis with grade 1 L5-S1 anterolisthesis. Severe multilevel disc and facet arthritis 2. CT myelogram performed 06/24/2024 at [facility] demonstrates moderate central stenosis L2-3. Moderate central stenosis L4-5 and L5-S1. Bilateral facet hypertrophy throughout lumbar spine and associated foraminal stenosis. 3. CT myelogram of the lumbar spine performed 03/17/2025 at [facility] demonstrates severe central stenosis L3-4, moderate central stenosis L4-5. Severe bilateral foraminal stenosis L5-S1 The above image findings were discussed with the patient. Previous injection therapy has included: 04/15/2025 L3-4 ILESI without relief 07/01/2024 bilateral SI joint injection 02/17/2024 bilateral L3-5 MBB RFA with out benefit 07/2023 L4-5 IL ROCK ([place]) no benefit Diclofenac Patient has participated in a physical therapy program for at least 6 weeks within the last 6 months Presentation is consistent with lumbar spondylosis and stenosis. I recommend: 1. Recommend neurosurgery consult given spinal stenosis with claudication 2. Discussed with the patient and her I do not recommend proceeding with spinal cord stimulator permanent implant given trial not providing adequate pain relief. External records were reviewed and discussed as above, including imaging, clinical notes, and relevant labs. [email or web address] Not available 04/27/2025 11:39:09 Plan of Treatment Reminders Order Date Submit Date Provider Last Modified By Organization Details Last Modified Time Details Appointments MERVIN teresa 2024 01:30P M RUTH FUENTES MD Not available Not available Not available Lab None record ed. Referral neurol ogical marko n referr al 2024 025 [facility] Neurosurgery, [address] [place], [address], 05/11/2025 15:05:20 Procedures epidur al steroi d inject ion, lumbar interl aminar (PROC) 2024 025 [facility] Professional Charges, [address] [facility], [place], [address], 04/05/2025 13:09:25 Surgeries None record ed. Imaging None record ed. Medication Orders None record ed. Patient TargetsNo targets recorded. Patient InstructionsNo instructions recorded. Reason for Referral Neurological Surgeon Referra l for Spinal stenosis of lumbar region failed SCS Trial and ROCK Referring Physician: Julisa Khan, Pain Management, Encounter Date: 04/27/2025 Results Created Date Observation Date Name Description Value Unit Range Abnormal Flag Note LastModifiedBy Organization Detail LastModifiedTime 03/17/2003/17/2025 CT, myelo gram, lumba r spine No observ ation record ed. [facility] Scheduling [address], [place], [address], 03/22/2025 09:42:43 03/17/2003/17/2025 CT, myelo gram, thora cic spine No observ ation record ed. [facility] Scheduling [address], [place], [address], 03/22/2025 09:42:29 Result Notes None recorded. Problems No Known Problems Procedures Surgical History Date Name Laterality Status Provider Name and Address Organization Details Recorded Time 04/15/20 25 Lumbar Epidural Steroid Injection - [facility] completed MURALI TRAMMELL MD [address] [place] [address], [address], [facility] 04/15/2025 15:49:19 03/28/20 25 SCS Trial - [facility] completed MURALI TRAMMELL MD [facility] [place], [address], [facility] 03/28/2025 14:58:49 09/17/19 25 Lumbar Epidural Steroid Injection - [facility] completed MURALI TRAMMELL MD [address] [place], [address], [facility] 09/17/2024 14:53:42 07/01/20 24 Sacroiliac Joint Injection - [facility] completed MURALI TRAMMELL MD [address] [place], [address], [facility] 07/01/2024 12:32:17 02/17/20 24 Lumbar RFA Bilateral - [facility] completed MURALI TRAMMELL MD [address] [place], [address], [facility] 02/17/2024 13:22:27 02/03/20 24 Lumbar MBB bilateral 2 level - [facility] completed MURALI TRAMMELL MD [address] [place], [address], [facility] 02/03/2024 16:09:45 01/26/20 24 Lumbar MBB bilateral 2 level - E[facility] completed MURALI TRAMMELL MD [address] [place], [address], [facility] 01/26/2024 14:50:15 08/11/19 19 procedure on heart completed Graciela Eduardo [facility] 12/26/2023 10:35:46 cholecystectomy completed Graciela Eduardo [facility] 12/26/2023 10:36:02 Appendectomy completed Graciela Eduardo [facility] 12/26/2023 10:36:17 Imaging Results None recorded. Procedure Notes None recorded. Medical Equipment None Reported. Allergies Allergen ID Allergen Name Allergen Category Reaction Reaction Severity Criticality Documentation Date Start Date Code Code System Note Provider Name and Address Organization Details Recorded Time 798716 Substance with sulfonami de structure and antibacte rial mechanism of action (substanc e) medicatio n Not available Not available Not available 12/26/2023 40563 8003 SNOMED Graciela Rodgerslas [facility] 10:27:37 843986 latex environme nt,medica tion itching Not available Not available 06/28/2024 51873 91 RxNorm Burni ng and itchi ng Meena Ronny [facility] 4 14:01:35 Medications Name Sig Start [...] Not Available Vitals Date Recorded Body height Heart rate Oxygen saturation Oxygen saturation in Arterial blood by Pulse oximetry Systolic And Diastolic Provider Name and Address Organization Details Last Updated DateTime 5 152.4 cm 70 /min 97 % 97 % 128/82 mm[Hg] Graciela Clark [facility] 5 14:54:54 Date Recorded Body height Heart rate Oxygen saturation Oxygen saturation in Arterial blood by Pulse oximetry Systolic And Diastolic Provider Name and Address Organization Details Last Updated DateTime 5 152.4 cm 66 /min 98 % 98 % 118/74 mm[Hg] Gracielanikita Clark [facility] 5 09:47:40 Date Recorded Body height Oxygen saturation Oxygen saturation in Arterial blood by Pulse oximetry Heart rate Systolic And Diastolic Provider Name and Address Organization Details Last Updated DateTime 5 152.4 cm 97 % 97 % 70 /min 132/82 mm[Hg] Kurtis Ramos [facility] 5 11:16:20 Social History Question Answer Notes LastModified by Organizat ion Details LastModified Time Tobacco Smoking Status Never Smoker Gracielanikita Clark [facility] 12/26/2023 10:35:11 What Was The Date Of Your Most Recent Tobacco Screening? 04/27/2025 [email or web address] Information not available 04/27/2025 What Is Your Relationship Status? [email or web address] Information not available 12/26/2023 Has Tobacco Cessation Counseling Been Provided? No [email or web address] Information not available 12/26/2023 Sex: Unknown Functional Status Question Answer Note LastModified by Organizat ion Details LastModified Time Do you use any illicit or recreational drugs? No Information not available 12/26/2023 Do you or have you ever used any other forms of tobacco or nicotine? No [email or web address] Information not available 12/26/2023 What is your level of alcohol consumption? None [email or web address] Information not available 12/26/2023 Are you currently employed? No [email or web address] Information not available 12/26/2023 Mental Status None recorded. Family History Relationship Description Onset Age of this Age Resolved Age Notes LastModified by Organization Details LastModified Time Sister Family history of malignant neoplasm [email or web address] Not available 12/25 10:34:59 Medical History Condition Response Heart Problems Y Kidney Stones N Blood Transfusion N Colon/Rectal Disorders N COPD N Heart Attack ([place]) Bleeding Disorder N Arthritis Y Hearing Loss Y Blood Clot N Cancer N Stroke N Asthma Y Blood Thinners N Sleep Apnea Y Thyroid Disorder N High Cholesterol Y Liver Disease N Headaches N Hypertension Y Osteoporosis N Kidney Disease N Gynecological HistoryNo gynecological history recorded. Obstetrics History GPAL:G 0 P 0 0 0 0 Past Encounters Encounter ID Performer Location Encounter Start Date Encounter Closed Date Diagnosis/Indication Diagnosis SNOMED-CT Code Diagnosis ICD10 Code Diagnosis IMO Codes Diagnosis Note [id number] MURALI TRAMMELL MD [facility] [address] [place] [address] 1 12/26/2023 09:25:47 12/26/2023 13:50:15 Degeneration of lumbar intervertebral disc 64697157 M51.36 Lumbar spondylosis 14691 0009 M47.816 Spinal ryan nosis of lumbar region 31417646 M48.062 [id number] MURALI TRAMMELL MD [facility] [address] [place] [address] 1 01/26/2024 13:38:01 01/29/2024 15:21:55 Lumbar spondylosis 597762093 M47.816 [id number] MURALI TRAMMELL MD [facility] [address] [place] [address] 1 02/03/2024 14:46:21 02/06/2024 15:47:16 Lumbar spondylosis 163426370 M47.816 [id number] MURALI TRAMMELL MD [facility] [address] [place] [address] 1 02/17/2024 12:44:27 02/17/2024 14:35:14 Lumbar spondylosis 346564476 M47.816 [id number] JULISA KHAN PA-C [facility] [address] [place] [address] 1 03/19/2024 13:44:00 03/19/2024 15:24:26 Lumbar spondylosis 263332363 M47.816 Degenerati on of lumbar intervertebral disc 12554997 M51.36 Spinal ryan nosis of lumbar region 23259556 M48.062 [id number] JULISA KHAN PA-C [facility] [address] [place] [address] 1 06/28/2024 13:45:12 06/28/2024 15:53:01 Spinal stenosis of lumbar region 65733312 M48.062 Lumbar spondylosis 04866 0009 M47.816 Degenerati on of lumbar intervertebral disc 97078448 M51.362 Low back pain 831598933 M54.51 Inflammati on of sacroiliac joint 71732420 M46.1 [id number] MURALI TRAMMELL MD [facility] [address] [place] [address], [place] [address] 1 07/01/2024 11:54:54 07/01/2024 13:39:21 Inflammation of sacroiliac joint 61859487 M46.1 [id number] MURALI TRAMMELL MD [facility] [address] [place] [address] 1 07/21/2024 13:44:07 07/22/2024 04:12:03 Spinal stenosis of lumbar region 59380143 M48.062 Lumbar spondylosis 08878 0009 M47.816 Degenerati on of lumbar intervertebral disc 17219795 M51.362 Low back pain 867034820 M54.51 [id number] JULISA KHAN PA-C [facility] [address] [place] [address] 1 10/14/2024 14:26:33 10/15/2024 05:36:51 Spinal stenosis of lumbar region 49537898 M48.062 Lumbar spondylosis 30695 0009 M47.816 Degenerati on of lumbar intervertebral disc 64520769 M51.362 Low back pain 371994834 M54.51 [id number] MURALI TRAMMELL MD [facility] [address] [place] [address], [facility] [place] [address] [place] [address] 1 09/17/2024 13:31:21 09/17/2024 15:04:27 Lumbar radiculopathy 740381758 M54.16 [id number] JOCELYN FUENTES MD NEUROSURG [facility] CL[facility] [address] [facility] [place] [address] 10/26/2024 13:59:40 10/27/2024 05:18:25 Low back pain 112159938 M54.50 [id number] JULISA KHAN PA-C PAIN MEDICINE [address] [place] [address] 1 12/21/2024 13:58:45 12/21/2024 16:05:29 Spinal stenosis of lumbar region 52822855 M48.062 Lumbar spondylosis 24648 0009 M47.816 Degenerati on of lumbar intervertebral disc 24964431 M51.362 Low back pain 289715794 M54.51 [id number] JULISA KHAN PA-C PAIN MEDICINE [address] [place] [address] 1 01/06/2025 15:03:26 01/08/2025 04:11:56 Spinal stenosis of lumbar region 41330511 M48.062 Lumbar spondylosis 95379 0009 M47.816 Degenerati on of lumbar intervertebral disc 54979503 M51.362 Low back pain 822655663 M54.51 Displaceme nt of lumbar intervertebral disc 8205622745 M51.26 Lumbar radiculopathy 128 795071 M54.16 Lumbar post-laminectomy syndrome 018398617 M96.1 [id number] MURALI TRAMMELL MD [facility] [address] [facility], [address] [place] [address] 03/28/2025 12:13:45 03/28/2025 16:28:25 Lumbar radiculopathy 673672058 M54.16 33695 [id number] JULISA KHAN PA-C PAIN MEDICINE [address] [place] [address] 03/30/2025 14:34:32 03/30/2025 16:17:57 Lumbar radiculopathy 001253023 M54.16 48774 [id number] MURALI TRAMMELL MD PAIN MEDICINE [address] [place] [address] 04/01/2025 09:38:03 04/01/2025 11:49:09 Lumbar radiculopathy 319118707 M54.16 30216 Spinal ryan nosis of lumbar region 06341321 M48.062 431666 [id number] MURALI TRAMMELL MD [facility] [address] [facility], [address] [place] [address] 1 04/15/2025 14:01:01 04/15/2025 15:53:59 Lumbar radiculopathy 610649830 M54.16 10634 [id number] JULISA KHAN PA-C PAIN MEDICINE [address] [place] [address] 1 04/27/2025 10:15:10 04/27/2025 16:19:55 Lumbar radiculopathy 845595889 M54.16 84250 Spinal ryan nosis of lumbar region 31245303 M48.062 [id number] Lumbar spondylosis 36569 0009 M47.816 Degenerati on of lumbar intervertebral disc 65033897 M51.362 Displaceme nt of lumbar intervertebral disc 7487868713 M51.26 Inflammati on of sacroiliac joint 43332155 M46.1 Health Concerns Section Related Observation LastModified by Organization Detai ls LastModified Time None Recorded Concern Status LastModified by Organization Details LastModified Time None Recorded Advance Directives Directive None Recorded Payers Insurance Date Sequence Insurance Name Policy Number Policy Fritz Covered Member ID Fritz Member ID Guarantor Name 05/13/2025 2 [employer] (MEDICARE SUPPLEMENT) Kathy Laura Barbara [id number] Kathy Barbara 05/13/2025 1 [place] Kathy R Barbara [id number] Kathy Barbara 05/13/2025 [facility] - PLAN F (MEDICARE SUPPLEMENT) Kathy Barbara [id number] Kathy Barbara Notes Date Note Type Note Provider Name and Address Organization Details Recorded Time 025 text/ht ml End of SCS TrialReported by PatientHPIFor symptoms, patient reportsweaknessandambulates with assist devicebut reportsno numbness,no fever, andno nausea. For trial, patient reportsdate: (03/28/25)andtype: scs. For findings, patient reportscurrent: 8,average: 8, and0% improvement in pain. Kathy Jimenez is a 84 yo female here today for FUP SCS Trial performed 03/28/25. Pt reports she has no pain when sitting but she has had no pain relief when standing, Pt very sore and itching around SCS site. JULISA KHAN PA-C [address] [place], [address], [facility] 03/30/2025 15:41:31 025 text/ht ml End of SCS TrialReported by PatientHPIFor symptoms, patient reportsweaknessandambulates with assist devicebut reportsno numbness,no fever, andno nausea. For trial, patient reportsdate: (03/28/25)andtype: scs. For findings, patient reportscurrent: 7,average: 8, and0% improvement in pain. Kathy Jimenez is a 84 yo female here today for SCS lead pull. Pt reports she still has no pian relief, hips are very sore. Pt states back is itching under bandaid. Pt states she would like to discuss inj in hips. Kathy Jimenez is a 84 yo female here today for FUP SCS Trial performed 03/28/25. Pt reports she has no pain when sitting but she has had no pain relief when standing, Pt very sore and itching around SCS site. MURALI TRAMMELL MD [address] [place], [address], [facility] 04/01/2025 10:18:53 025 text/ht ml Pain Management L-spine GISHReported by PatientHPIFor quality, patient reportsachingandsharp. For severity, patient reportsworseningandinterference with sleepbut reportscurrent pain level 7/10andworst pain 10/10. For associated symptoms, patient reportsweaknessbut reportsno numbness,no bladder compromise, andno bowel compromise. For location, patient reportsbilateral le radiation,lbp,left buttock pain,left hip pain,right buttock pain, andright hip pain. For duration, patient reportsconstant. For onset/timing, patient reportschronicand5 years. For context, patient reportscannot identify. For alleviating factors, patient reportsheat. For aggravating factors, patient reportsgetting out of bed,going from sit to stand,sitting,standing, andwalking. For radiation, patient reportsbilateral le. For driving impairments with medications, patient reportsno. For prior imaging, patient reportsct scanandmyelogram (ct myelogram lumber 06/24/2024). For prior emg, patient reportsnone. For previous surgery, patient reportsnone. For previous injections, patient reportsesi (09/03),si joint injection (salvador hips per sujey velasco md), andhelped a little. For previous pt, patient reportsdate completed: 2022 ([facility])anddid not help. For previous care transitions manager, patient reportsnone. End of SCS TrialReported by PatientHPIFor symptoms, patient reportsweaknessandambulates with assist devicebut reportsno numbness,no fever, andno nausea. For trial, patient reportsdate: (03/28/25)andtype: scs. For findings, patient reportscurrent: 8,average: 8, and0% improvement in pain. Kathy Jimenez is a 84 yo female here today for salvador low back pain that is radiating down into salvador hips/buttocks, down all over legs to feet. Pt state pain is worse today than ever. Kathy Jimenez is a 84 yo female here today for FUP SCS Trial performed 03/28/25. Pt reports she has no pain when sitting but she has had no pain relief when standing, Pt very sore and itching around SCS site. JULISA KHAN PA-C [address] [place], [address], [facility] 04/27/2025 11:39:25 OBGyn Episode No OBEpisode recorded.
--- OUTSIDE RECORDS SUMMARY | 2025-05-24 17:04 | XMS_ITS | Encounter Summary ---
Author Organization [employer] ([place], [place], [place], [place]) Address [address] [place] [address] Care Team Providers Care Cosmetics Machine Operator Name Role Phone Alfred Cantu MD Primary Care Provider [phone] Lyndsey Key MD Unavailable [phone] Vik Corcoran MD Unavailable Encounter Details Date Type Department Care Team (Late st Contact Info) Description 10/31/2018 Transcribed Document [facility] Family Medicine formerly [facility] [place] [address] ProviderRashard MD [address] [place] [address] Social History Tobacco Use Types Packs/Day [...] RT_Q6H Eliquis, 5 mg= 1 Tab, Oral, [id number] magnesium sulfate, 2 Gram= 50 mL, IV Piggyback, Q2H, PRN magnesium sulfate, 2 Gram= 50 mL, IV Piggyback, Daily, PRN Mucinex, 1200 mg= 2 Tab, Oral, BID Normal Saline 500 mL, 500 mL, IntraVENous nystatin, 3401350 Units= 10 mL, Swish and Swallow , [...] oral tablet, 500 mg= 1 Tab, Oral, [id number] Mucinex 600 mg oral tablet, extended release, [...] Visit [facility] Electrophysiology [address] [place] [address] Vik Corcoran MD [address] [place] [address] [address] [place] [address] documented as of this encounter Visit Diagnoses Not on filedocumented in this encounter Care Teams Cosmetics Machine Operator Relationship Specialty Start Date End Date Alfred Cantu MD [address] [place] [address] [place] [address] PCP - General General Internal Medicine 08/29/22 [place] [address] [place] [address] [address] Ornamental Ironworker Helper Interventional Cardiology 08/29/22 Vik Corcoran MD [address] [place] [address] [id number] Ornamental Ironworker Helper Electrophysiology 05/19/24 documented as of this encounter
--- OUTSIDE RECORDS SUMMARY | 2025-05-24 17:04 | XMS_ITS | Encounter Summary ---
Author Organization [employer] ([place], [place], [place], [place]) Address [address] [place] [address] Care Team Providers Care Family Consultant Name Role Phone Alfred Cantu MD Primary Care Provider [phone] Lyndsey Key MD Unavailable [phone] Vik Corcoran MD Unavailable Encounter Details Date Type Department Care Team (Late st Contact Info) Description 10/31/2018 Transcribed Document [facility] [place] [facility] [place] [address] ProviderRashard MD [address] [place] [address] Social History Tobacco Use Types Packs/Day [...] 38 kg/m2 High (10/20/18 23:04:00) Rapid Response Family Consultant #1 : BARB COOPER V, RN BARB COOPER V RN - 10/31/2018 3:49 EDT Electronically signed by [facility] Conversion Last [employer] at 11/28/2022 5:38 PM CDT documented in this encounter Plan of Treatment Upcoming Encounters Date Type Department Care Team (Late st Contact Info) Description 08/23/2025 12:45 PM EST Office Visit [facility] Electrophysiology [address] [place] [address] Vik Corcoran MD [address] [place] [address] [address] [place] [address] documented as of this encounter Visit Diagnoses Not on filedocumented in this encounter Care Teams Family Consultant Relationship Specialty Start Date End Date Alfred Cantu MD [address] [place] [phone] PCP - General General Internal Medicine 08/29/22 Lyndsey Key MD [address] [facility] [address] [place], [place] [id number] Logging Contractor Interventional Cardiology 08/29/22 Vik Corcoran MD [address] [facility] [address] [place] [address] Logging Contractor Electrophysiology 05/19/24 documented as of this encounter
--- OUTSIDE RECORDS SUMMARY | 2025-05-24 17:04 | XMS_ITS | Encounter Summary ---
Author Organization [employer] ([place], [place], [place], [place]) Address [address] [place] [address] Care Team Providers Care Cardiovascular Technologist Name Role Phone Alfred Cantu MD Primary Care Provider Lyndsey Key MD Unavailable [phone] Vik Corcoran MD Unavailable Encounter Details Date Type Department Care Team (Late st Contact Info) Description 11/01/2018 Transcribed Document [facility] [place] [facility] [place] [address] ProviderRashard MD [address] [place] [address] Social History Tobacco Use Types Packs/Day [...] has hx of CM Recently [facility] - then sent [...] RT_Q6H, PRN: Cough Eliquis: 5 mg, Oral, [id number] Mucinex: 1,200 mg, Oral, BID Pulmicort Respules: [...] 500 mg oral tablet: 1 Tab, Oral, [id number], for 7 Day(s), 7 Tab, 0 Refill(s) [...] mg tab 5 mg 1 Tab, Oral, [id number] aspirin 81 mg chew tab 81 mg [...] History of obstructive sleep apnea / IMO [id number] / Confirmed, Active Problems (9) Allergic asthma Apnea, sleep Chronic GERD Dyspnea H/O hyperlipidemia H/O mitral valve insufficiency History of obstructive sleep apnea Hx of obesity Hypertension Histories Past Medical History: No active or resolved past medical history items have been selected or recorded. Family History: No family history items have been selected or recorded. Procedure history: CHOLECYSTECTOMY ([id number]). hysterectomy. sinus surgery. cataract surgery - bilateral. [...] if local Physician can't Electronically signed by [facility], [facility] Conversion Bottle And Glass Inspector Cerner at 11/28/2022 5:31 PM CDT documented in this encounter Plan of Treatment Upcoming Encounters Date Type Department Care Team (Late st Contact Info) Description 08/23/2025 12:45 PM EST Office Visit [facility] Electrophysiology [address] [place] [address] [place] [address] [place] [address] [address] [place] [address] documented as of this encounter Visit Diagnoses Not on filedocumented in this encounter Care Teams Cardiovascular Technologist Relationship Specialty Start Date End Date Alfred Cantu MD [address] [place] [address] PCP - General General Internal Medicine 08/29/22 [place] [address] [place] [address] [address] [place] [address] Bereavement Counselor Interventional Cardiology 08/29/22 Vik Corcoran MD [address] [facility] [address] [place] [address] Bereavement Counselor Electrophysiology 05/19/24 documented as of this encounter
--- OUTSIDE RECORDS SUMMARY | 2025-05-24 17:04 | XMS_ITS | Encounter Summary ---
Author Organization [employer] ([place], [place], [place], [place]) Address [address] [place] [address] Care Team Providers Care Aviation Tactical Readiness Officer Name Role Phone Alfred Cantu MD Primary Care Provider [phone] Lyndsey Key MD Unavailable [phone] Vik Corcoran MD Unavailable Encounter Details Date Type Department Care Team (Late st Contact Info) Description 11/01/2018 Transcribed Document [facility] [place] Medicine [facility] [place] [address] ProviderRashard MD [address] [place] [address] Social History Tobacco Use Types Packs/Day [...] CALVIN HARDEN RN - 11/01/2018 17:48 EDT documented in this encounter Plan of Treatment Upcoming Encounters Date Type Department Care Team (Late st Contact Info) Description 08/23/2025 12:45 PM EST Office Visit [facility] Electrophysiology [address] [place] [address] [place] [address] [place] [address] [address] [place] [address] documented as of this encounter Visit Diagnoses Not on filedocumented in this encounter Care Teams Aviation Tactical Readiness Officer Relationship Specialty Start Date End Date Alfred Cantu MD [address] [place] [address] PCP - General General Internal Medicine 08/29/22 [place] [address] [place] [address] [address] [place] [address] Technical Sales Support Manager Interventional Cardiology 08/29/22 Vik Corcoran MD [address] [place] [address] [address] [place], [place] [id number] Technical Sales Support Manager Electrophysiology 05/19/24 documented as of this encounter
--- OUTSIDE RECORDS SUMMARY | 2025-05-24 17:04 | XMS_ITS | Encounter Summary ---
Author Organization [employer] ([place], [place], [place], [place]) Address [address] [place] [address] Care Team Providers Care Radiation Engineer Name Role Phone Alfred Cantu MD Primary Care Provider [phone] Lyndsey Key MD Unavailable [phone] Vik Corcoran MD Unavailable Encounter Details Date Type Department Care Team (Late st Contact Info) Description 10/31/2018 Transcribed Document [facility] [place] [address] ProviderRashard MD [address] [place] [address] Social History Tobacco Use Types Packs/Day Years Used Date Smoking Tobacco: Never Assessed Comments Unknown Sex and Gender Information Value Date Recorded Sex Assigned at Not on file Legal Sex Female 1:15 PM CDT Gender Identity Not on file Sexual Orientation Not on file documented as of this encounter Miscellaneous Notes * Cerner Conversion Note - Rashard Gonzlaez MD - 10/31/2018 5:39 PM CDT Patient: KATHY CARTER Age: 78 Years Sex: Female : 1940 Chief Complaint Weakness being tired shortness of breath Reason for Consultation Hyponatremia History of Present Illness Ms. Carter, T8 years old female with past medical history of hypertension, mitral valve regurg, asthma, who was transferred from [facility] because of CHFexacerbation and severe mitral regurg for possible ICD placement. She had been admitted to [facility] for 3 days treated for pneumonia. [...] - Medical Apixaban 5 mg, Oral, Tab, [id number], Routine, Start 10/30/18 16:00:00 EDT (NAZANIN ORTIZ) [...] RT_Q6H Eliquis, 5 mg= 1 Tab, Oral, [id number] magnesium sulfate, 2 Gram= 50 mL, IV Piggyback, Q2H, PRN magnesium sulfate, 2 Gram= 50 mL, IV Piggyback, Daily, PRN Mucinex, 1200 mg= 2 Tab, Oral, BID nystatin, [id number] Units= 10 mL, Swish and Swallow , [...] oral tablet, 500 mg= 1 Tab, Oral, [id number] Mucinex 600 mg oral tablet, extended release, [...] # 6.53 x10(3)/uL (High) 10/31/2018 05:34 EDT [place] % 8.3 % 10/31/2018 05:34 EDT [place] # 2.91 K/uL (High) 10/31/2018 05:34 EDT [...] No Radiology Results Found Electronically signed by [facility], [facility] Conversion Home Stager Cerner at 11/28/2022 5:44 PM CDT documented in this encounter Plan of Treatment Upcoming Encounters Date Type Department Care Team (Late st Contact Info) Description 08/23/2025 12:45 PM EST Office Visit [facility] Electrophysiology [address] [place] [address] [place] [address] [place] [address] [address] [place] [address] documented as of this encounter Visit Diagnoses Not on filedocumented in this encounter Care Teams Radiation Engineer Relationship Specialty Start Date End Date Alfred Cantu MD [address] [place] [address] PCP - General General Internal Medicine 08/29/22 [place] [address] [place] [address] [address] [place] [address] Quartz Miner Interventional Cardiology 08/29/22 Vik Corcoran MD [address] [facility] [place] [address] Quartz Miner Electrophysiology 05/19/24 documented as of this encounter
--- OUTSIDE RECORDS SUMMARY | 2025-05-24 17:04 | XMS_ITS | Encounter Summary ---
Author Organization [employer] ([place], [place], [place], [place]) Address [address] [place] [address] Care Team Providers Care Painting Instructor Name Role Phone Alfred Cantu MD Primary Care Provider [phone] Lyndsey Key MD Unavailable [phone] Vik Corcoran MD Unavailable Encounter Details Date Type Department Care Team (Late st Contact Info) Description 10/31/2018 Transcribed Document [facility] [place] Family Medicine [address] [place] [address] ProviderRashard MD [address] [place] [address] Social History Tobacco Use Types Packs/Day [...] Description 08/23/2025 12:45 PM EST Office Visit [facility] Electrophysiology [address] [place] [address] [place] [address] [place] [address] [address] documented as of this encounter Visit Diagnoses Not on filedocumented in this encounter Care Teams Painting Instructor Relationship Specialty Start Date End Date Alfred Cantu MD [address] [place] [address] PCP - General General Internal Medicine 08/29/22 [place] [address] [place] [address] [address] Client Technical Support Associate Interventional Cardiology 08/29/22 Vik Corcoran MD [address] [place] [address] [address] Client Technical Support Associate Electrophysiology 05/19/24 documented as of this encounter
--- OUTSIDE RECORDS SUMMARY | 2025-05-24 17:04 | XMS_ITS | Encounter Summary ---
Author Organization [employer] ([place], [place], [place], [place]) Address [address] [place] [address] Care Team Providers Care Portrait Studio Photographer Name Role Phone Alfred Cantu MD Primary Care Provider [phone] Lyndsey Key MD Unavailable [phone] Vik Corcoran MD Unavailable Encounter Details Date Type Department Care Team (Late st Contact Info) Description 10/30/2018 Transcribed Document [facility] [place] Family [place] [address] ProviderRashard MD [address] [place] [address] Social History Tobacco Use Types Packs/Day [...] EDT Performed On: 10/30/2018 16:14 EDT by Cuortney Shaw RN Rapid Response Event Rapid Response [...] change in location/level of care Rapid Response Portrait Studio Photographer #1 : Courtney Shaw, RN Courtney Shaw, RN - 10/30/2018 16:14 EDT documented in this encounter Plan of Treatment Upcoming Encounters Date Type Department Care Team (Late st Contact Info) Description 08/23/2025 12:45 PM EST Office Visit [facility] Electrophysiology [address] [place] [address] Vik Corcoran MD [address] [place] [address] [address] [place] [address] documented as of this encounter Visit Diagnoses Not on filedocumented in this encounter Care Teams Portrait Studio Photographer Relationship Specialty Start Date End Date Alfred Cantu MD [address] [place] [address] PCP - General General Internal Medicine 08/29/22 Lyndsey Key MD [address] [facility] [address] [place], [place] [id number] Account Development Associate Interventional Cardiology 08/29/22 Vik Corcoran MD [address] [facility] [address] [place] [address] Account Development Associate Electrophysiology 05/19/24 documented as of this encounter
--- OUTSIDE RECORDS SUMMARY | 2025-05-24 17:04 | XMS_ITS | Encounter Summary ---
Author Organization [employer] ([place], [place], [place], [place]) Address [address] [place] [address] Care Team Providers Care Stylist Assistant Name Role Phone Alfred Cantu MD Primary Care Provider [phone] Lyndsey Key MD Unavailable [phone] Vik Corcoran MD Unavailable Encounter Details Date Type Department Care Team (Late st Contact Info) Description 11/01/2018 Transcribed Document [facility] [place] [facility] [place] [address] ProviderRashard MD [address] [place] [address] Social History Tobacco Use Types Packs/Day [...] RT_Q6H Eliquis, 5 mg= 1 Tab, Oral, [id number] magnesium sulfate, 2 Gram= 50 mL, IV Piggyback, Q2H, PRN magnesium sulfate, 2 Gram= 50 mL, IV Piggyback, Daily, PRN Mucinex, 1200 mg= 2 Tab, Oral, BID nystatin, [id number] Units= 10 mL, Swish and Swallow , [...] oral tablet, 500 mg= 1 Tab, Oral, [id number] omeprazole 20 mg oral delayed release capsule, [...] / 36.9 \ Electronically signed by [facility] Conversion Coordinator Cardiopulmonary Services Cerner at 11/28/2022 5:33 PM CDT documented in this encounter Plan of Treatment Upcoming Encounters Date Type Department Care Team (Late st Contact Info) Description 08/23/2025 12:45 PM EST Office Visit [facility] Electrophysiology [address] [place] [address] Vik Corcoran MD [address] [facility] [address] [place] [address] documented as of this encounter Visit Diagnoses Not on filedocumented in this encounter Care Teams Stylist Assistant Relationship Specialty Start Date End Date Alfred Cantu MD [address] [place] [address] PCP - General General Internal Medicine 08/29/22 Lyndsey Key MD [address] [place] [address] Measurement Supervisor Interventional Cardiology 08/29/22 Vik Corcoran MD [address] [place] [address] [address] Measurement Supervisor Electrophysiology 05/19/24 documented as of this encounter
--- OUTSIDE RECORDS SUMMARY | 2025-05-24 17:05 | XMS_ITS | Encounter Summary ---
Author Organization [employer] ([place], [place], [place], [place]) Address [address] [place] [address] Care Team Providers Care Cafeteria Cook Name Role Phone Alfred Cantu MD Primary Care Provider [phone] Lyndsey Key MD Unavailable [phone] Vik Corcoran MD Unavailable Encounter Details Date Type Department Care Team (Late st Contact Info) Description 10/30/2018 Transcribed Document [facility] [place] Family Medicine [facility] [place] [address] ProviderRashard MD [address] [place] [address] Social History Tobacco Use Types Packs/Day [...] NAN POLANCO, RN - 10/30/2018 20:13 EDT Electronically signed by [facility] Conversion Equipment Or Machinery Cleaner Cerner at 11/28/2022 5:38 PM CDT documented in this encounter Plan of Treatment Upcoming Encounters Date Type Department Care Team (Late st Contact Info) Description 08/23/2025 12:45 PM EST Office Visit [facility] Electrophysiology [address] [place] [phone] [place] [address] [place] [address] [address] [place] [address] documented as of this encounter Visit Diagnoses Not on filedocumented in this encounter Care Teams Cafeteria Cook Relationship Specialty Start Date End Date Alfred Cantu MD [address] [place] [address] PCP - General General Internal Medicine 08/29/22 Lyndsey Key MD [address] [place] [address] [address] [place] [address] System Validation Engineer Interventional Cardiology 08/29/22 Vik Corcoran MD [address] [place] [address] [address] [place] [address] System Validation Engineer Electrophysiology 05/19/24 documented as of this encounter
--- OUTSIDE RECORDS SUMMARY | 2025-05-24 17:05 | XMS_ITS | Encounter Summary ---
Author Organization [employer] ([place], [place], [place], [place]) Address [address] [place] [address] Care Team Providers Care Fitness And Wellness Instructor Name Role Phone Alfred Cantu MD Primary Care Provider [phone] Lyndsey Key MD Unavailable [phone] Vik Corcoran MD Unavailable Encounter Details Date Type Department Care Team (Late st Contact Info) Description 10/30/2018 Transcribed Document [facility] [place] [address] [place] [address] ProviderRashard MD [address] [place] [address] Social History Tobacco Use Types Packs/Day [...] Description 08/23/2025 12:45 PM EST Office Visit [facility] Electrophysiology [address] [place] [address] [place] [address] [place] [address] [address] [place] [address] documented as of this encounter Visit Diagnoses Not on filedocumented in this encounter Care Teams Fitness And Wellness Instructor Relationship Specialty Start Date End Date Alfred Cantu MD [address] [place] [address] PCP - General General Internal Medicine 08/29/22 Lyndsey Key MD 1401 [facility] [address] [address] Sales Team Manager Interventional Cardiology 08/29/22 [place] [address] [place] [address] [address] Sales Team Manager Electrophysiology 05/19/24 documented as of this encounter
--- OUTSIDE RECORDS SUMMARY | 2025-05-24 17:05 | XMS_ITS | Encounter Summary ---
Author Organization [employer] ([place], [place], [place], [place]) Address [address] [place] [address] Care Team Providers Care Offset Assistant Press Operator Name Role Phone Alfred Cantu MD Primary Care Provider [phone] Lyndsey Key MD Unavailable [phone] Vik Corcoran MD Unavailable Encounter Details Date Type Department Care Team (Late st Contact Info) Description 10/30/2018 Transcribed Document [facility] [place] [facility] [place] [address] ProviderRashard MD [address] [place] [address] Social History Tobacco Use Types Packs/Day [...] Rashard ProviderMD - 10/30/2018 2:00 AM CDT Spring Forger Details Entered On: 10/30/2018 2:48 EDT Performed [...] 10/30/2018 2:48 EDT Electronically signed by [facility], [facility] Conversion Special Services Agent Cerner at 11/28/2022 5:38 PM CDT documented in this encounter Plan of Treatment Upcoming Encounters Date Type Department Care Team (Late st Contact Info) Description 08/23/2025 12:45 PM EST Office Visit [facility] Electrophysiology [address] [place] [phone] Vik Corcoran MD [address] [place] [address] [address] [place], [place] [id number] documented as of this encounter Visit Diagnoses Not on filedocumented in this encounter Care Teams Offset Assistant Press Operator Relationship Specialty Start Date End Date Alfred Cantu MD [address] [place] [address] PCP - General General Internal Medicine 08/29/22 Lyndsey Key MD [address] [place] [address] [address] Grease Refiner Operator Interventional Cardiology 08/29/22 Vik Corcoran MD [address] [place] [address] [id number] Grease Refiner Operator Electrophysiology 05/19/24 documented as of this encounter
--- OUTSIDE RECORDS SUMMARY | 2025-05-24 17:05 | XMS_ITS | Encounter Summary ---
Author Organization [employer] ([place], [place], [place], [place]) Address [address] [place] [address] Care Team Providers Care Shot Fireman Name Role Phone Alfred Cantu MD Primary Care Provider [phone] Lyndsey Key MD Unavailable [phone] Vik Corcoran MD Unavailable Encounter Details Date Type Department Care Team (Late st Contact Info) Description 10/30/2018 Transcribed Document [facility] [place] [address] ProviderRashard MD [address] [place] [address] Social History Tobacco Use Types Packs/Day [...] 10/30/2018 3:04 EDT Electronically signed by [facility] Conversion Door Manager Cerner at 11/28/2022 5:33 PM CDT documented in this encounter Plan of Treatment Upcoming Encounters Date Type Department Care Team (Late st Contact Info) Description 08/23/2025 12:45 PM EST Office Visit [facility] Electrophysiology [address] [place] [phone] [place] [address] [place] [address] [address] [place] [address] documented as of this encounter Visit Diagnoses Not on filedocumented in this encounter Care Teams Shot Fireman Relationship Specialty Start Date End Date Alfred Cantu MD [address] [place] [address] PCP - General General Internal Medicine 08/29/22 Lyndsey Key MD [address] [place] [address] [address] [place] [address] Web Merchandiser Interventional Cardiology 08/29/22 Vik Corcoran MD [address] [place] [address] [address] [place] [address] Web Merchandiser Electrophysiology 05/19/24 documented as of this encounter
--- OUTSIDE RECORDS SUMMARY | 2025-05-24 17:05 | XMS_ITS | Encounter Summary ---
Author Organization [employer] ([place], [place], [place], [place]) Address [address] [place] [address] Care Team Providers Care Supervisor Fitting Name Role Phone Alfred Cantu MD Primary Care Provider [phone] Lyndsey Key MD Unavailable [phone] Vik Corcoran MD Unavailable Encounter Details Date Type Department Care Team (Late st Contact Info) Description 10/28/2018 Transcribed Document [facility] [place] [facility] [place] [address] ProviderRashard MD [address] [place] [address] Social History Tobacco Use Types Packs/Day [...] On: 10/30/2018 11:28 EDT by REGINA TERRY [facility] Care Management Note Anticipated Discharge Date : 10/23/2018 15:00 EDT Care Management Note : Continue to follow for discharge needs and arrangements, admission day #10, 2 liters/nebs, Ne=630, WBC=39.8, CT Abd/pelvis/chest=IMPRESSION: 5 mm nodule in the right mid lung. Right lower lobe consolidation and small right pleural effusion. Follow-up to complete resolution recommended. No nephrolithiasis or hydronephrosis; PO Doxy, PT/ET=562', Bi-V-ICD site CDI, confirmed with spouse, Braxton ([phone]) that plan at discharge remains to return home, HH in place via [facility], O2 for transport at bedside, via [facility] (at discharge will need new room air forwarded to provider @[phone]),BSC ordered via [facility] and they will contact patient's family about delivery to patient's home. CM will continue to follow. Care Management Note Report : LAURA YI [facility] - 10/28/18 15:47:17 Covering today for D/C [...] patient to discharge home with spouse, Braxton ([phone]) who will transport and assist as needed. Orders received for home health and for home oxygen, d/w spouse providers, [facility] and [facility] chosen, referrals made, and portable O2 to be delivered to patient's room prior to discharge and HH to follow up to begin POC upon discharge. CM will continue to follow until discharge to finalize transfer arrangements. REGINA TERRY Social Worker - 10/26/18 17:32:42 Continue to follow for discharge needs and arrangements, chart reviewed, admission day #6, on 2 liters O2/nebs, Ll=660, Cl=95, WBC=18.9, CXR=FINDINGS: The heart is stable in size. The lung rosario demonstrate no significant change in the right base atelectasis. There is no pneumothorax. The support devices are in good position. IMPRESSION: There has been no significant interval change; PT/QG=102' with rwx, PO Prednison, EP completed wound check today on Bi-V-ICD site, plan at discharge (possible Friday10/27/18) is to return home with spouse, Braxton, who will transport and assist with care. HH choice at discharge is [facility], once HH orders for RN/PT/OT in place will make referral and finalize arrangements. Will also watch for patient's room air level on day of discharge in case home oxygen is needed. Will continue to follow. REGINA TERRY, [facility] - 10/23/18 17:17:58 Continue to follow for discharge needs and arrangements, chart reviewed, admission day #3, transfer from SICU, currently on 2 liters O2/nebs, Zc=577, Cl=88, Mg=2.5, WBC=18.3, CXR=pending, on IV Solumedrol q6, PT/OT-will need reeval orders due to recent procedure, patient underwent a Bi-V-ICD placement today. Plan at discharge remains to return home with family support (+/- Home Health). CM will continue to follow. CONNIE LIVE RN-Helminthologist - 10/22/18 13:28:57 improving chf. severe mitral regurg. nicm bipap/02 3L nc. zithromax. lasix iv q 8 hr. PT/OT consults. biv icd tomorrow. CONNIE LIVE RN-Helminthologist - 10/21/18 13:09:33 readmit risk: moderate 59. transfer from [facility]. acute excerbation systolic heart failure. [...] Documentation Status Complete : Yes REGINA TERRY [facility] - 10/30/2018 11:28 EDT Discharge Planning Details Discharge Home : Home, Home health (related) Home Caregiver Name/Relationship : Braxton Jimenez spouse [phone] Discharge Home Care Needs : Occupational therapy, Physical Therapy, group home care Discharge Placement Needs : Home Persons Assisting Patient at Home : Spouse Transportation Needs : Car REGINA TERRY [facility] - 10/30/2018 11:28 EDT Info/List/Choices Provided Patient Offered Choice/Affiliations Explained : Yes List/Info Provided Pt/Fam/Support Person : Durable medical equipment, Home health Important Medicare Message Reviewed With : Spouse Important Medicare Message Reviewed D/T : 10/26/2018 16:30 EDT Patient/Family Notified of Plan : Yes Patient/Family Notified : Braxton Jimenez spouse [phone] REGINA TERRY [facility] - 10/30/2018 11:28 EDT Electronically signed by Kavita [facility] Conversion Panel Edge Sealer Cerner at 11/28/2022 5:46 PM CDT documented in this encounter Plan of Treatment Upcoming Encounters Date Type Department Care Team (Late st Contact Info) Description 08/23/2025 12:45 PM EST Office Visit [facility] Electrophysiology [address] [place] [address] Vik Corcoran MD [address] [facility] [address] [place] [address] documented as of this encounter Visit Diagnoses Not on filedocumented in this encounter Care Teams Supervisor Fitting Relationship Specialty Start Date End Date Alfred Cantu MD [address] [place] [address] PCP - General General Internal Medicine 08/29/22 Lyndsey Key MD [address] [facility] [address] [address] Sprinkler Installer Interventional Cardiology 08/29/22 iVk Corcoran MD [address] [facility] [address] [address] Sprinkler Installer Electrophysiology 05/19/24 documented as of this encounter
--- OUTSIDE RECORDS SUMMARY | 2025-05-24 17:05 | XMS_ITS | Encounter Summary ---
Author Organization [employer] ([place], [place], [place], [place]) Address [address] [place] [address] Care Team Providers Care Mortgage Loan Originator Name Role Phone Alfred Cantu MD Primary Care Provider [phone] Lyndsey Key MD Unavailable [phone] Vik Corcoran MD Unavailable Encounter Details Date Type Department Care Team (Late st Contact Info) Description 10/29/2018 Transcribed Document [facility] [place] Family Medicine [facility] [place] [address] ProviderRashard MD [address] [place] [address] Social History Tobacco Use Types Packs/Day [...] Description 08/23/2025 12:45 PM EST Office Visit [facility] Electrophysiology [address] [place] [address] [place] [address] [place] [address] [address] [place] [address] documented as of this encounter Visit Diagnoses Not on filedocumented in this encounter Care Teams Mortgage Loan Originator Relationship Specialty Start Date End Date Alfred Cantu MD [address] [place] [address] PCP - General General Internal Medicine 08/29/22 [place] [address] [place] [address] [address] Tooth Clerk Interventional Cardiology 08/29/22 Vik Corcoran MD [address] [place] [address] [address] Tooth Clerk Electrophysiology 05/19/24 documented as of this encounter
--- OUTSIDE RECORDS SUMMARY | 2025-05-24 17:05 | XMS_ITS | Encounter Summary ---
Author Organization [employer] ([place], [place], [place], [place]) Address [address] [place] [address] Care Team Providers Care Emt Dispatcher Name Role Phone Alfred Cantu MD Primary Care Provider [phone] Lyndsey Key MD Unavailable [phone] Vik Corcoran MD Unavailable Encounter Details Date Type Department Care Team (Late st Contact Info) Description 03/26/2024 Outside Orders [facility] Scheduling [address] [place] [address] Julisa Abbott PA [address] [place] [address] Spinal stenosis, lumbar region, with neurogenic claudication (Primary Dx) Social History Tobacco Use Types Packs/Day Years Used Date Smoking Tobacco: Never Smokeless Tobacco: Never Family and Community Support Answer Sebastian e Recorded Help with Day to Day Activities Not on file 08/29/2023 Feeling Lonely or Isolated Not on file 08/29 Educational Attainment Answer Date Ezra rded Speak language other than Bhutanese at home Not on file 08/29/2023 Want [...] Description 08/23/2025 12:45 PM EST Office Visit [facility] Electrophysiology [address] [place] [address] Vik Corcoran MD [address] [place] [address] [address] [place] [address] documented as of this encounter Visit Diagnoses Diagnosis Spinal stenosis, lumbar region, with neurogenic claudication- Primary documented in this encounter Care Teams Emt Dispatcher Relationship Specialty Start Date End Date Alfred Cantu MD [address] [place] [address] PCP - General General Internal Medicine 08/29/22 Lyndsey Key MD [address] [place] [address] [address] Joint Sealer Interventional Cardiology 08/29/22 Vik Corcoran MD [address] [place] [address] [address] [place], [place] [id number] Joint Sealer Electrophysiology 05/19/24 documented as of this encounter
--- OUTSIDE RECORDS SUMMARY | 2025-05-24 17:05 | XMS_ITS | Encounter Summary ---
Author Organization [employer] ([place], [place], [place], [place]) Address [address] [place] [address] Care Team Providers Care Construction Safety Manager Name Role Phone Alfred Cantu MD Primary Care Provider [phone] Lyndsey Key MD Unavailable Vik Corcoran MD Unavailable Encounter Details Date Type Department Care Team (Late st Contact Info) Description 10/29/2018 Transcribed Document [facility] [place] Family Medicine [facility] [place] [address] ProviderRashard MD [address] [place] [address] Social History Tobacco Use Types Packs/Day [...] has hx of CM Recently admitted to [facility] for 3 days - then sent [...] 500 mg oral tablet: 1 Tab, Oral, [id number], for 7 Day(s), 7 Tab, 0 Refill(s) [...] History of obstructive sleep apnea / IMO [id number] / Confirmed, Active Problems (9) Allergic asthma Apnea, sleep Chronic GERD Dyspnea H/O hyperlipidemia H/O mitral valve insufficiency History of obstructive sleep apnea Hx of obesity Hypertension Histories Past Medical History: No active or resolved past medical history items have been selected or recorded. Family History: No family history items have been selected or recorded. Procedure history: CHOLECYSTECTOMY ([id number]). hysterectomy. sinus surgery. cataract surgery - bilateral. [...] if local Physician can't Electronically signed by [facility], [facility] Conversion Operations Liaison Cerner at 11/28/2022 5:32 PM CDT documented in this encounter Plan of Treatment Upcoming Encounters Date Type Department Care Team (Late st Contact Info) Description 08/23/2025 12:45 PM EST Office Visit [facility] Electrophysiology [address] [place] [address] Vik Corcoran MD [address] [facility] [address] [place] [address] documented as of this encounter Visit Diagnoses Not on filedocumented in this encounter Care Teams Construction Safety Manager Relationship Specialty Start Date End Date Alfred Cantu MD [address] [place] [address] [place] [address] PCP - General General Internal Medicine 08/29/22 Lyndsey Key MD [address] [place] [address] [address] [place] [address] Almond Roaster Interventional Cardiology 08/29/22 [place] [address] [place] [address] [address] [place] [address] Almond Roaster Electrophysiology 05/19/24 documented as of this encounter
--- OUTSIDE RECORDS SUMMARY | 2025-05-24 17:05 | XMS_ITS | Encounter Summary ---
Author Organization [employer] ([place], [place], [place], [place]) Address [address] [place] [address] Care Team Providers Care Aircraft Charter Dispatcher Name Role Phone Alfred Cantu MD Primary Care Provider [phone] Lydnsey Key MD Unavailable [phone] Vik Corcoran MD Unavailable Encounter Details Date Type Department Care Team (Late st Contact Info) Description 10/29/2018 Transcribed Document [facility] [place] [facility] [place] [address] ProviderRashard MD [address] [place] [address] Social History Tobacco Use Types Packs/Day [...] (OCT 21) Radiology Results (Last 48 hours) [id number] -- 10/20/2018 23:00 CT Abdomen Pelvis WO [...] time spent: 29 min Electronically signed by [facility], [facility] Conversion Master Scheduler Cerner at 11/28/2022 5:33 PM CDT documented in this encounter Plan of Treatment Upcoming Encounters Date Type Department Care Team (Late st Contact Info) Description 08/23/2025 12:45 PM EST Office Visit [facility] Electrophysiology [address] [place] [address] Vik Corcoran MD [address] [place] [address] [address] documented as of this encounter Visit Diagnoses Not on filedocumented in this encounter Care Teams Aircraft Charter Dispatcher Relationship Specialty Start Date End Date Alfred Cantu MD [address] [place] [address] PCP - General General Internal Medicine 08/29/22 Lyndsey Key MD [address] [place] [address] [id number] Acid Adjuster Interventional Cardiology 08/29/22 Vik Corcoran MD [address] [place] [address] [address] Acid Adjuster Electrophysiology 05/19/24 documented as of this encounter
--- OUTSIDE RECORDS SUMMARY | 2025-05-24 17:05 | XMS_ITS | Encounter Summary ---
Author Organization [employer] ([place], [place], [place], [place]) Address [address] [place] [address] Care Team Providers Care Yacht Builder Name Role Phone Alfred Cantu MD Primary Care Provider [phone] Lyndsey Key MD Unavailable Vik Corcoran MD Unavailable Encounter Details Date Type Department Care Team (Late st Contact Info) Description 10/26/2018 Transcribed Document [facility] [place] [address] [place] [address] ProviderRashard MD [address] [place] [address] Social History Tobacco Use Types Packs/Day [...] Description 08/23/2025 12:45 PM EST Office Visit [facility] Electrophysiology [address] [place] [address] [place] [address] [place] [address] [address] [place] [id number] documented as of this encounter Visit Diagnoses Not on filedocumented in this encounter Care Teams Yacht Builder Relationship Specialty Start Date End Date Alfred Catnu MD [address] [place] [address] PCP - General General Internal Medicine 08/29/22 [place] [address] [place] [address] [address] [place] [address] Assistant Nurse Manager Interventional Cardiology 08/29/22 [place] [address] [place] [address] [address] [place], [place] [address] Assistant Nurse Manager Electrophysiology 05/19/24 documented as of this encounter
--- OUTSIDE RECORDS SUMMARY | 2025-05-24 17:05 | XMS_ITS | Encounter Summary ---
Author Organization [employer] ([place], [place], [place], [place]) Address [address] [place] [address] Care Team Providers Care Research Executive Name Role Phone Alfred Cantu MD Primary Care Provider [phone] Lyndsey Key MD Unavailable [phone] Vik Corcoran MD Unavailable Encounter Details Date Type Department Care Team (Late st Contact Info) Description 10/26/2018 Transcribed Document [facility] [place] Family Medicine [facility] [place] [address] ProviderRashard MD [address] [place] [address] Social History Tobacco Use Types Packs/Day [...] Rashard ProviderMD - 10/26/2018 2:00 AM CDT Career Agent Details Entered On: 10/26/2018 3:49 EDT Performed [...] - 10/26/2018 3:49 EDT Electronically signed by [facility], [facility] Conversion Newspaper Clipper Cerner at 11/28/2022 5:41 PM CDT documented in this encounter Plan of Treatment Upcoming Encounters Date Type Department Care Team (Late st Contact Info) Description 08/23/2025 12:45 PM EST Office Visit [facility] Electrophysiology [address] [place] [address] Vik Corcoran MD [address] [place] [address] [address] [place] [address] documented as of this encounter Visit Diagnoses Not on filedocumented in this encounter Care Teams Research Executive Relationship Specialty Start Date End Date Alfred Cantu MD [address] [place] [address] PCP - General General Internal Medicine 08/29/22 Lyndsey Key MD [address] [place] [address] [address] Property Man Interventional Cardiology 08/29/22 Vik Corcoran MD [address] [place] [address] [address] Property Man Electrophysiology 05/19/24 documented as of this encounter
--- OUTSIDE RECORDS SUMMARY | 2025-05-24 17:05 | XMS_ITS | Encounter Summary ---
Author Organization [employer] ([place], [place], [place], [place]) Address [address] [place] [address] Care Team Providers Care Director Report Name Role Phone Alfred Cantu MD Primary Care Provider [phone] Lyndsey Key MD Unavailable [phone] Vik Corcoran MD Unavailable Encounter Details Date Type Department Care Team (Late st Contact Info) Description 10/28/2018 Transcribed Document [facility] [place] Family Medicine [facility] [place] [address] ProviderRashard MD [address] [place] [address] Social History Tobacco Use Types Packs/Day [...] 1200 mg= 2 Tab, Oral, BID nystatin, [id number] Units= 10 mL, Swish and Swallow , [...] oral tablet, 500 mg= 1 Tab, Oral, [id number] Mucinex 600 mg oral tablet, extended release, [...] 61 bpm, NSR Electronically signed by Interface, [facility] Conversion Sustainability Project Coordinator Cerner at 11/28/2022 5:29 PM CDT documented in this encounter Plan of Treatment Upcoming Encounters Date Type Department Care Team (Late st Contact Info) Description 08/23/2025 12:45 PM EST Office Visit [facility] Electrophysiology [address] [place] [address] Vik Corcoran MD [address] [place] [address] [address] documented as of this encounter Visit Diagnoses Not on filedocumented in this encounter Care Teams Director Report Relationship Specialty Start Date End Date Alfred Cantu MD [address] [place] [address] PCP - General General Internal Medicine 08/29/22 Lyndsey Key MD [address] [place] [address] [address] Chief Jailer Interventional Cardiology 08/29/22 Vik Corcoran MD [address] [place] [address] [address] Chief Jailer Electrophysiology 05/19/24 documented as of this encounter
--- OUTSIDE RECORDS SUMMARY | 2025-05-24 17:05 | XMS_ITS | Encounter Summary ---
Author Organization [employer] ([place], [place], [place], [place]) Address [address] [place] [address] Care Team Providers Care Groundsman Name Role Phone Alfred Cantu MD Primary Care Provider Lyndsey Key MD Unavailable [phone] Vik Corcoran MD Unavailable Encounter Details Date Type Department Care Team (Late st Contact Info) Description 10/28/2018 Transcribed Document [facility] [place] Family Medicine [facility] [place] [address] ProviderRashard MD [address] [place] [address] Social History Tobacco Use Types Packs/Day [...] On: 10/28/2018 15:40 EDT by LAURA YI, Upper Stitcher Care Management Note Anticipated Discharge Date : [...] patient to discharge home with spouse, Braxton ([phone]) who will transport and assist as needed. Orders received for home health and for home oxygen, d/w spouse providers, [facility] and [facility] chosen, referrals made, and portable O2 to be delivered to patient's room prior to discharge and HH to follow up to begin POC upon discharge. CM will continue to follow until discharge to finalize transfer arrangements. REGINA TERRY Social Worker - 10/26/18 17:32:42 Continue to follow for discharge needs and arrangements, chart reviewed, admission day #6, on 2 liters O2/nebs, Gy=643, Cl=95, WBC=18.9, CXR=FINDINGS: The heart is stable in size. The lung rosario demonstrate no significant change in the right base atelectasis. There is no pneumothorax. The support devices are in good position. IMPRESSION: There has been no significant interval change; PT/TM=908' with rwx, PO Prednison, EP completed wound check today on Bi-V-ICD site, plan at discharge (possible Friday10/27/18) is to return home with spouse, Braxton, who will transport and assist with care. HH choice at discharge is [facility], once HH orders for RN/PT/OT in place will make referral and finalize arrangements. Will also watch for patient's room air level on day of discharge in case home oxygen is needed. Will continue to follow. REGINA TERRY Upper Stitcher - 10/23/18 17:17:58 Continue to follow for discharge needs and arrangements, chart reviewed, admission day #3, transfer from SICU, currently on 2 liters O2/nebs, Td=786, Cl=88, Mg=2.5, WBC=18.3, CXR=pending, on IV Solumedrol [...] 13:09:33 readmit risk: moderate 59. transfer from [facility]. acute excerbation systolic heart failure. ef 25-30%. severe mitral regurg. severe nicm. CAP. for biv icd today. bipap 50%/02 4-6L nc. zithromax po. zosyn iv. ca gluconate iv x 2. kcl 20meq x 1. na phos iv x 1. PT consult. spoke with Ms. Jimenez. explained role of case management. pt resides in [facility]. she is adl independent. drives car. has cane, walker & cpap provided by [facility]. no current home health or previous rehab stays. discussed dc planning rehab vs home health depending on progress. pt has medicare primary. she advises she has [employer] 2nd insurance. notified Aubrie, pt advocate for inclusion in records. spoke with bedside RNMagda. Documentation Status Complete : Yes LAURA YI, Upper Stitcher - 10/28/2018 15:40 EDT documented in this encounter Plan of Treatment Upcoming Encounters Date Type Department Care Team (Late st Contact Info) Description 08/23/2025 12:45 PM EST Office Visit [facility] Electrophysiology [address] [place] [address] Vik Corcoran MD [address] [place] [address] [address] [place] [address] documented as of this encounter Visit Diagnoses Not on filedocumented in this encounter Care Teams Groundsman Relationship Specialty Start Date End Date Alfred Cantu MD [address] [place] [address] PCP - General General Internal Medicine 08/29/22 [place] [address] [place] [address] [address] [place] [id number] Email Marketing Executive Interventional Cardiology 08/29/22 Vik Corcoran MD [address] [facility] [address] [place], [place] [id number] Email Marketing Executive Electrophysiology 05/19/24 documented as of this encounter
--- OUTSIDE RECORDS SUMMARY | 2025-05-24 17:05 | XMS_ITS | Encounter Summary ---
Author Organization [employer] ([place], [place], [place], [place]) Address [address] [place] [address] Care Team Providers Care Artificial Breeding Ranch Supervisor Name Role Phone Alfred Cantu MD Primary Care Provider [phone] Lyndsey Key MD Unavailable [phone] Vik Corcoran MD Unavailable Encounter Details Date Type Department Care Team (Late st Contact Info) Description 10/26/2018 Transcribed Document [facility] [place] [facility] [place] [address] ProviderRashard MD [address] [place] [address] Social History Tobacco Use Types Packs/Day [...] 10/26/2018 7:36 EDT Electronically signed by [facility] Conversion Automotive Fuel Systems Converter Cerner at 11/28/2022 5:41 PM CDT documented in this encounter Plan of Treatment Upcoming Encounters Date Type Department Care Team (Late st Contact Info) Description 08/23/2025 12:45 PM EST Office Visit [facility] Electrophysiology [address] [place] [phone] Vik Corcoran MD [address] [place] [address] [address] [place] [phone] documented as of this encounter Visit Diagnoses Not on filedocumented in this encounter Care Teams Artificial Breeding Ranch Supervisor Relationship Specialty Start Date End Date Alfred Cantu MD [address] [place] [address] PCP - General General Internal Medicine 08/29/22 Lyndsey Key MD [address] [place] [address] [phone] Learning Support Services Director Interventional Cardiology 08/29/22 Vik Corcoran MD [address] [place] [address] [address] Learning Support Services Director Electrophysiology 05/19/24 documented as of this encounter
--- OUTSIDE RECORDS SUMMARY | 2025-05-24 17:05 | XMS_ITS | Encounter Summary ---
Author Organization [employer] ([place], [place], [place], [place]) Address [address] [place] [address] Care Team Providers Care Senior Regulatory Affairs Specialist Name Role Phone Alfred Cantu MD Primary Care Provider [phone] Lyndsey Key MD Unavailable [phone] Vik Corcoran MD Unavailable Encounter Details Date Type Department Care Team (Late st Contact Info) Description 10/28/2018 Transcribed Document [facility] [place] [facility] [place] [address] ProviderRashard MD [address] [place] [address] Social History Tobacco Use Types Packs/Day [...] (OCT 21) Radiology Results (Last 48 hours) [id number] -- 10/20/2018 23:00 CR Chest 1 Vw [...] spent: 29 min Electronically signed by [facility] Conversion Housing Assistant Cerner at 11/28/2022 5:36 PM CDT documented in this encounter Plan of Treatment Upcoming Encounters Date Type Department Care Team (Late st Contact Info) Description 08/23/2025 12:45 PM EST Office Visit [facility] Electrophysiology [address] [place] [phone] [place] [address] [place] [address] [address] [place], [place] [phone] documented as of this encounter Visit Diagnoses Not on filedocumented in this encounter Care Teams Senior Regulatory Affairs Specialist Relationship Specialty Start Date End Date Alfred Cantu MD [address] [place] [address] PCP - General General Internal Medicine 08/29/22 Lyndsey Key MD [address] [place] [address] [address] [place] [address] Front End Alignment Specialist Interventional Cardiology 08/29/22 Vik Corcoran MD [address] [place] [address] [address] [place] [address] Front End Alignment Specialist Electrophysiology 05/19/24 documented as of this encounter
--- OUTSIDE RECORDS SUMMARY | 2025-05-24 17:05 | XMS_ITS | Encounter Summary ---
Author Organization [employer] ([place], [place], [place], [place]) Address [address] [place] [address] Care Team Providers Care Utility Systems Repairer Operator Name Role Phone Alfred Cantu MD Primary Care Provider [phone] Lyndsey Key MD Unavailable [phone] Vik Corcoran MD Unavailable Encounter Details Date Type Department Care Team (Late st Contact Info) Description 10/26/2018 Transcribed Document [facility] [place] [facility] [place] [address] ProviderRashard MD [address] [place] [address] Social History Tobacco Use Types Packs/Day [...] On: 10/26/2018 17:26 EDT by REGINA TERRY Barrer And Tacker Care Management Note Anticipated Discharge Date : 10/23/2018 15:00 EDT Care Management Note : Continue to follow for discharge needs and arrangements, chart reviewed, admission day #6, on 2 liters O2/nebs, Ae=903, Cl=95, WBC=18.9, CXR=FINDINGS: The heart is stable in size. The lung rosario demonstrate no significant change in the right base atelectasis. There is no pneumothorax. The support devices are in good position. IMPRESSION: There has been no significant interval change; PT/TH=569' with rwx, PO Prednison, EP completed wound check today on Bi-V-ICD site, plan at discharge (possible Friday10/27/18) is to return home with spouse, Braxton, who will transport and assist with care. HH choice at discharge is [facility], once HH orders for RN/PT/OT in place will make referral and finalize arrangements. Will also watch for patient's room air level on day of discharge in case home oxygen is needed. Will continue to follow. Care Management Note Report : REGINA TERRY, Barrer And Tacker - 10/23/18 17:17:58 Continue to follow for discharge needs and arrangements, chart reviewed, admission day #3, transfer from SICU, currently on 2 liters O2/nebs, Wg=679, Cl=88, Mg=2.5, WBC=18.3, CXR=pending, on IV Solumedrol [...] 13:09:33 readmit risk: moderate 57. transfer from [facility]. acute excerbation systolic heart failure. ef 25-30%. severe mitral regurg. severe nicm. CAP. for biv icd today. bipap 50%/02 4-6L nc. zithromax po. zosyn iv. ca gluconate iv x 2. kcl 20meq x 1. na phos iv x 1. PT consult. spoke with Ms. Jimenez. explained role of case management. pt resides in [facility]. she is adl independent. drives car. has cane, walker & cpap provided by [employer]. no current home health or previous rehab stays. discussed dc planning rehab vs home health depending on progress. pt has medicare primary. she advises she has [employer] insurance. notified annelise Alfred advocate for inclusion in records. spoke with bedside RN, Magda. Documentation Status Complete : Yes REGINA TERRY, Barrer And Tacker - 10/26/2018 17:26 EDT Electronically signed by [facility], [facility] Conversion Skating Rink Ice Maker Cerner at 11/28/2022 5:43 PM CDT documented in this encounter Plan of Treatment Upcoming Encounters Date Type Department Care Team (Late st Contact Info) Description 08/23/2025 12:45 PM EST Office Visit [facility] Electrophysiology [address] [place] [phone] [place] [address] [place] [address] [address] documented as of this encounter Visit Diagnoses Not on filedocumented in this encounter Care Teams Utility Systems Repairer Operator Relationship Specialty Start Date End Date Alfred Cantu MD [address] [place] [address] PCP - General General Internal Medicine 08/29/22 [place] [address] [place] [address] [address] Deputy Chief Counsel Interventional Cardiology 08/29/22 [place] [address] [place] [address] [address] Deputy Chief Counsel Electrophysiology 05/19/24 documented as of this encounter
--- OUTSIDE RECORDS SUMMARY | 2025-05-24 17:05 | XMS_ITS | Encounter Summary ---
Author Organization [employer] ([place], [place], [place], [place]) Address [address] [place] [address] Care Team Providers Care Hypoid Gear Tester Name Role Phone Alfred Cantu MD Primary Care Provider [phone] Lyndsey Key MD Unavailable [phone] Vik Corcoran MD Unavailable Encounter Details Date Type Department Care Team (Late st Contact Info) Description 05/07/2024 Outside Orders [facility] Central Scheduling 1 [place] [address] Julisa Abbott PA [address] [place] [address] Spinal stenosis, lumbar region with [...] Date Ezra rded Speak language other than Northern Irish at home Not on file 08/29/2023 Want [...] EST Office Visit [facility] Electrophysiology [address] [place] [phone] Vik Corcoran MD [address] [place] [address] [address] [place], [place] [phone] documented as of this encounter Visit Diagnoses Diagnosis Spinal stenosis, lumbar region with neurogenic claudication- Primary documented in this encounter Care Teams Hypoid Gear Tester Relationship Specialty Start Date End Date Alfred Cantu MD [address] [place] [address] PCP - General General Internal Medicine 08/29/22 Lyndsey Key MD [address] [place] [address] [address] [employer] Principal Interventional Cardiology 08/29/22 Vik Corcoran MD [address] [place] [address] [address] [employer] Principal Electrophysiology 05/19/24 documented as of this encounter
--- OUTSIDE RECORDS SUMMARY | 2025-05-24 17:05 | XMS_ITS | Encounter Summary ---
Author Organization [employer] ([place], [place], [place], [place]) Address [address] [place] [address] Care Team Providers Care Hog Ribber Name Role Phone Alfred Cantu MD Primary Care Provider [phone] Lyndsey Key MD Unavailable [phone] Vik Corcoran MD Unavailable Encounter Details Date Type Department Care Team (Latest Contact Info) Description 03/10/2025 Outside Orders [facility] Central Scheduling 1 [place] [address] Julisa Abbott PA [address] [place] [address] Postlaminectomy syndrome (Primary Dx) Social History Tobacco Use Types [...] Date Ezra rded Speak language other than Cymraes at home Not on file 08/29/2023 Want [...] Description 08/23/2025 12:45 PM EST Office Visit [facility] Electrophysiology [address] [place] [phone] [place] [address] [place] [address] [address] [place], [place] [phone] documented as of this encounter Visit Diagnoses Diagnosis Postlaminectomy syndrome- Primary Postlaminectomy syndrome, unspecified region documented in this encounter Care Teams Hog Ribber Relationship Specialty Start Date End Date Alfred Cantu MD [address] [place] [address] PCP - General General Internal Medicine 08/29/22 Lyndsey Key MD [address] [place] [address] [address] Tile Roofer Interventional Cardiology 08/29/22 Vik Corcoran MD [address] [place] [address] [address] Tile Roofer Electrophysiology 05/19/24 documented as of this encounter
--- OUTSIDE RECORDS SUMMARY | 2025-05-24 17:05 | XMS_ITS | Encounter Summary ---
Author Organization [employer] ([place], [place], [place], [place]) Address [address] [place] [address] Care Team Providers Care Scrap Shear Operator Name Role Phone Alfred Cantu MD Primary Care Provider [phone] Lyndsey Key MD Unavailable [phone] Vik Corcoran MD Unavailable Encounter Details Date Type Department Care Team (Late st Contact Info) Description 10/27/2018 Transcribed Document [facility] [place] [facility] [place] [address] ProviderRashard MD [address] [place] [address] Social History Tobacco Use Types Packs/Day [...] On: 10/27/2018 13:24 EDT by OSEAS JIMENEZ, manager sales and marketing Documentation Discharge Date/Time : 11/02/2018 15:24 EDT [...] - 10/27/2018 13:24 EDT Electronically signed by [facility], [facility] Conversion Customs Consultant Cerner at 11/28/2022 5:34 PM CDT documented in this encounter Plan of Treatment Upcoming Encounters Date Type Department Care Team (Late st Contact Info) Description 08/23/2025 12:45 PM EST Office Visit [facility] Electrophysiology [address] [place] [phone] Vik Corcoran MD [address] [place] [address] [place] [phone] documented as of this encounter Visit Diagnoses Not on filedocumented in this encounter Care Teams Scrap Shear Operator Relationship Specialty Start Date End Date Alfred Cantu MD [address] [place] [address] PCP - General General Internal Medicine 08/29/22 Lyndsey Key MD [address] [place] [address] [address] Rubber Goods Tester Water Interventional Cardiology 08/29/22 Vik Corcoran MD [address] [place] [address] [phone] Rubber Goods Tester Water Electrophysiology 05/19/24 documented as of this encounter
--- OUTSIDE RECORDS SUMMARY | 2025-05-24 17:05 | XMS_ITS | Encounter Summary ---
Author Organization [employer] ([place], [place], [place], [place]) Address [address] [place] [address] Care Team Providers Care Pnp Name Role Phone Alfred Cantu MD Primary Care Provider [phone] Lyndsey Key MD Unavailable [phone] Vik Corcoran MD Unavailable Encounter Details Date Type Department Care Team (Late st Contact Info) Description 10/28/2018 Transcribed Document [facility] [place] [facility] [place] [address] ProviderRashard MD [address] [place] [address] Social History Tobacco Use Types Packs/Day [...] 10/28/2018 4:07 EDT Electronically signed by K[facility] Conversion Medical Coding Instructor Cerner at 11/28/2022 5:35 PM CDT documented in this encounter Plan of Treatment Upcoming Encounters Date Type Department Care Team (Late st Contact Info) Description 08/23/2025 12:45 PM EST Office Visit [facility] Electrophysiology [address] [place] [phone] [place] [address] [place] [address] [address] [place] [address] documented as of this encounter Visit Diagnoses Not on filedocumented in this encounter Care Teams Pnp Relationship Specialty Start Date End Date Alfred Cantu MD [address] [place] [address] PCP - General General Internal Medicine 08/29/22 [place] [address] [place] [address] [address] [place] [address] Medical Record Assistant Interventional Cardiology 08/29/22 [place] [address] [place] [address] [address] [place] [address] Medical Record Assistant Electrophysiology 05/19/24 documented as of this encounter
--- OUTSIDE RECORDS SUMMARY | 2025-05-24 17:05 | XMS_ITS | Clinical Summary ---
Author Organization [facility] Address [address] [place] [phone] Phone Care Team Providers Care Director Of Nuclear Medicine Name Role Phone Unavailable Primary Care Provider [...] - 1-dose 75+ series) 2017 COVID-19 Vaccine (3 - 2024-2 6 season) 2025 10/12/2020, 09/14/2020 Influenza Vaccine (#1) 2025 4, [...] [place] [address] [facility]
--- OUTSIDE RECORDS SUMMARY | 2025-05-24 17:05 | XMS_ITS | Encounter Summary ---
Author Organization [employer] ([place], [place], [place], [place]) Address [address] [place] [address] Care Team Providers Care Metal Cabinet Finisher Name Role Phone Alfred Cantu MD Primary Care Provider [phone] Lyndsey Key MD Unavailable [phone] Vik Corcoran MD Unavailable Reason for Referral * CAT Scan (Routine) - Closed Specialty Diagnoses / Procedures Referred By Contac t Referred To Contact Radiology Diagnoses Spinal stenosis, lumbar region, with neurogenic claudication Procedures CT spine lumbar without contrast Julisa Abbott, PA Phone: tel: fax: Referral ID Status Reason Start Date Expiration Date Visits Re quested Visits Authorized [id number] Closed 06/08/2024 06/08/2025 1 1 * Flouroscopy (Routine) - Pending Review Specialty Diagnoses / Procedures Referred By Contac t Referred To Contact Diagnoses Spinal stenosis, lumbar region, with neurogenic claudication Procedures [place] myelogram lumbar Julisa Abbott PA Phone: tel: fax: Referral ID Status Reason Start Date Expiration Date V isits Requested Visits Authorized [id number] Pending Review 06/08/2024 06/08/2025 1 1 Encounter Details Date Type Department Care Team (Late st Contact Info) Description 06/08/2024 Outside Orders [facility] Central Scheduling 1 [place] [address] Julisa Abbott PA [address] [place] [phone] Spinal stenosis, lumbar region, with neurogenic claudication [...] Description 08/23/2025 12:45 PM EST Office Visit [facility] Electrophysiology [address] [place] [phone] Vik Corcoran MD [address] [place] [address] [address] [place] [phone] documented as of this encounter Results * [...] PA-C. us Provider Not In The System [facility] IMG CT ORDERAB LES Final Result documented in this encounter Visit Diagnoses Diagnosis Spinal stenosis, lumbar region, with neurogenic claudication- Primary Spinal stenosis, lumbar region, with neurogenic claudication documented in this encounter Care Teams Metal Cabinet Finisher Relationship Specialty Start Date End Date Alfred Cantu MD [address] [place] [address] PCP - General General Internal Medicine 08/29/22 Lyndsey Key MD [address] [facility] [address] [place] [address] Digital Marketing Strategist Interventional Cardiology 08/29/22 Vik Corcoran MD [address] [facility] [address] [place] [address] Digital Marketing Strategist Electrophysiology 05/19/24 documented as of this encounter
--- OUTSIDE RECORDS SUMMARY | 2025-05-24 17:05 | XMS_ITS | Encounter Summary ---
Author Organization [employer] ([place], [place], [place], [place]) Address [address] [place] [address] Care Team Providers Care Cio Name Role Phone Alfred Cantu MD Primary Care Provider [phone] Lyndsey Key MD Unavailable [phone] Vik Corcoran MD Unavailable Encounter Details Date Type Department Care Team (Late st Contact Info) Description 10/30/2018 Transcribed Document [facility] [place] [address] ProviderRashard MD [address] [place] [address] Social History Tobacco Use Types Packs/Day [...] her white count time spent: 29 min documented in this encounter Plan of Treatment Upcoming Encounters Date Type Department Care Team (Late st Contact Info) Description 08/23/2025 12:45 PM EST Office Visit [facility] Electrophysiology [address] [place] [phone] Vik Corcoran MD [address] [facility] [address] [place] [address] documented as of this encounter Visit Diagnoses Not on filedocumented in this encounter Care Teams Cio Relationship Specialty Start Date End Date Alfred Cantu MD [address] [place] [address] PCP - General General Internal Medicine 08/29/22 Lyndsey Key MD [address] [facility] [address] [place] [address] Bindery Supervisor Interventional Cardiology 08/29/22 Vik Corcoran MD [address] [facility] [address] [place] [phone] Bindery Supervisor Electrophysiology 05/19/24 documented as of this encounter
--- OUTSIDE RECORDS SUMMARY | 2025-05-24 17:05 | XMS_ITS | Encounter Summary ---
Author Organization [employer] ([place], [place], [place], [place]) Address [address] [place] [address] Care Team Providers Care Pin Drafting Machine Operator Name Role Phone Alfred Cantu MD Primary Care Provider [phone] Lyndsey Key MD Unavailable [phone] Vik Corcoran MD Unavailable Encounter Details Date Type Department Care Team (Late st Contact Info) Description 10/27/2018 Transcribed Document [facility] Family [facility] [place] [address] ProviderRashard MD [address] [place] [address] Social History Tobacco Use Types Packs/Day [...] Rashard ProviderMD - 10/27/2018 1:46 PM CDT [address] , [place] [address] Patient Copy Patient Information: Name: KATHY JIMENEZ Current Date: 10/27/2018 13:46:18 : 1940 Patient Address: [address] [place], [place] [address] [address] Patient Attending Physician: CARMELLA MEI MD-INT Primary [...] assistance finding a family MD please call [phone]. With: Address: When: NAZANIN NAVA [address] [place] [address] [facility] (1) 9:00 AM Comments: You will [...] Follow these instructions at home: Medicines??? Take wulm-qfr-issvplr and prescription medicines only as told by [...] and water are not available, use hand goodyear stitcher. ? Change your dressing as told by [...] radio towers. ??? Do notuse amateur ( [employer] ) radio equipment or electric ( arc [...] 12/08/2007 Document Revised: 04/21/2017 Document Reviewed: 03/06/2015 [employer] Interactive Patient Education ? 2017 [employer] Smoking Hazards Smoking cigarettes is extremely [...] contain harmful chemicals. FOR MORE INFORMATION ??? [place] [employer]: www.lung.org ??? [place] [employer] Society: www.cancer.org This information is not intended to replace advice given to you by your health care provider. Make sure you discuss any questions you have with your health care provider. Document Released: 09/04/2005 Document Revised: 11/18/2016 Document Reviewed: 01/17/2014 [employer] Patient Education ? 2017 [employer] Heart-Healthy Eating Plan Many factors influence [...] foods can I eat? Grains Breads, including Vietnamese, white, serenity, wheat, raisin, rye, oatmeal, and North Korean. Tortillas that are neither fried nor made with lard or trans fat. Low-fat rolls, including hotdog and hamburger buns and Lithuanian muffins. Biscuits. Muffins. Waffles. Pancakes. Light popcorn. [...] cheese. Whole milk cheeses, including blue (henry), Yancey Gary, Brie, Hayes, [place]an, Havarti, Filipino, cheddar, Camembert, and [place]. Whole or 2% milk that is liquid, [...] that has suet, meat fat, or shortening. Toone butter, hydrogenated oils, palm oil, coconut oil, [...] 05/06/2009 Document Revised: 02/14/2017 Document Reviewed: 01/19/2015 [employer] Patient Education ? 2017 [employer] How to Take a Pulse Your [...] 02/01/2004 Document Revised: 02/14/2017 Document Reviewed: 12/31/2016 [employer] Patient Education ? 2017 [employer] How to Take Your Blood Pressure [...] 07/10/2009 Document Revised: 08/18/2015 Document Reviewed: 09/22/2014 ElseEner1 Interactive Patient Education ? 2017 [employer]. [...] Other treatments may include cardiac resynchronization therapy (SUPERVISOR HEADING) or a left ventricular assist device (LVAD). [...] to manage stress. General instructions ??? Take xxwy-ybi-bjsnlsv and prescription medicines only as told by [...] 10/10/2005 Document Revised: 03/25/2017 Document Reviewed: 01/27/2017 [employer] Patient Education ? 2017 [employer] Medication Leaflets: bumetanide (oral/injection) (huong mccain) [...] may report side effects to FDA at 9-861-GOG-7827. What other drugs will affect bumetanide? Bumetanide [...] drugs may affect bumetanide, including prescription and dzlt-yoj-cazojvm medicines, vitamins, and herbal products. Not all [...] to ensure that the information provided by [employer]. ('[employer]') is accurate, up-to-date, and complete, but no guarantee is made to that effect. Drug information contained herein may be time sensitive. [employer] information has been compiled for use by healthcare practitioners and consumers in the [place] and therefore [employer] does not warrant that uses outside of the [place] are appropriate, unless specifically indicated otherwise. [employer] drug information does not endorse drugs, diagnose patients or recommend therapy. [employer] drug information is an informational resource designed [...] effective or appropriate for any given patient. [facility] does not assume any responsibility for any aspect of healthcare administered with the aid of information [facility] provides. The information contained herein is not intended to cover all possible uses, directions, precautions, warnings, drug interactions, allergic reactions, or adverse effects. If you have questions about the drugs you are taking, check with your doctor, nurse or pharmacist. Copyright 9227-8993 [employer] works. Version: 7.01. Revision Date: 08/13/2018. carvedilol (PRABHJOT [...] may report side effects to FDA at 9-909-ELO-0787. What other drugs will affect carvedilol? Other drugs may interact with carvedilol, including prescription and mtjl-nlp-mbwrszy medicines, vitamins, and herbal products. Tell each [...] to ensure that the information provided by [employer]. ('[employer]') is accurate, up-to-date, and complete, but no guarantee is made to that effect. Drug information contained herein may be time sensitive. [employer] information has been compiled for use by healthcare practitioners and consumers in the [place] and therefore [employer] does not warrant that uses outside of the [place] are appropriate, unless specifically indicated otherwise. [employer] drug information does not endorse drugs, diagnose patients or recommend therapy. [employer] drug information is an informational resource designed [...] effective or appropriate for any given patient. [employer] does not assume any responsibility for any aspect of healthcare administered with the aid of information [employer] provides. The information contained herein is not intended to cover all possible uses, directions, precautions, warnings, drug interactions, allergic reactions, or adverse effects. If you have questions about the drugs you are taking, check with your doctor, nurse or pharmacist. Copyright 3919-5942 [employer] works. Version: 15.. Revision Date: 08/30/2013. albuterol and [...] EST Office Visit [facility] Electrophysiology [address] [place] [address] [place] [address] [place] [address] [address] [place] [address] documented as of this encounter Visit Diagnoses Not on filedocumented in this encounter Care Teams Pin Drafting Machine Operator Relationship Specialty Start Date End Date Alfred Cantu MD [address] [place] [address] [place] [address] PCP - General General Internal Medicine 08/29/22 [place] [address] [place] [address] [address] [place], [place] [id number] Manager Intern Interventional Cardiology 08/29/22 Vik Corcoran MD [facility] [place] [address] Manager Intern Electrophysiology 05/19/24 documented as of this encounter
--- OUTSIDE RECORDS SUMMARY | 2025-05-24 17:05 | XMS_ITS | Encounter Summary ---
Author Organization [employer] ([place], [place], [place], [place]) Address [address] [place] [address] Care Team Providers Care Health Promotion Coordinator Name Role Phone Alfred Cantu MD Primary Care Provider [phone] Lyndsey Key MD Unavailable [phone] Vik Corcoran MD Unavailable Encounter Details Date Type Department Care Team (Late st Contact Info) Description 10/30/2018 Transcribed Document [facility] Family Medicine [facility] [place] [address] ProviderRashard MD [address] [place] [address] Social History Tobacco Use Types Packs/Day [...] 1200 mg= 2 Tab, Oral, BID nystatin, [id number] Units= 10 mL, Swish and Swallow , [...] oral tablet, 500 mg= 1 Tab, Oral, [id number] Mucinex 600 mg oral tablet, extended release, [...] 174 / 36.9 \ Electronically signed by [facility], [facility] Conversion Senior Sql Server Database Developer Cerner at 11/28/2022 5:39 PM CDT documented in this encounter Plan of Treatment Upcoming Encounters Date Type Department Care Team (Late st Contact Info) Description 08/23/2025 12:45 PM EST Office Visit [facility] Electrophysiology [address] [place] [address] Vik Corcoran MD [address] [place] [address] [place] [address] documented as of this encounter Visit Diagnoses Not on filedocumented in this encounter Care Teams Health Promotion Coordinator Relationship Specialty Start Date End Date Alfred Cantu MD [address] [place] [address] [place] [address] PCP - General General Internal Medicine 08/29/22 Lyndsey Key MD [address] [place] [address] [address] Transcription Coordinator Interventional Cardiology 08/29/22 Vik Corcoran MD [address] [place] [address] [address] Transcription Coordinator Electrophysiology 05/19/24 documented as of this encounter
--- OUTSIDE RECORDS SUMMARY | 2025-05-24 17:05 | XMS_ITS | Encounter Summary ---
Author Organization [employer] ([place], [place], [place], [place]) Address [address] [place] [address] Care Team Providers Care Hotel Custodian Name Role Phone Alfred Cantu MD Primary Care Provider Lyndsey Key MD Unavailable [phone] Vik Corcoran MD Unavailable Encounter Details Date Type Department Care Team (Late st Contact Info) Description 10/28/2018 Transcribed Document [facility] [place] [address] ProviderRashard MD [address] [place] [address] Social History Tobacco Use Types Packs/Day [...] 10/28/2018 15:17 EDT Electronically signed by Kavita [facility] Conversion Benefits Assistant Krzysztof at 11/28/2022 5:44 PM CDT documented in this encounter Plan of Treatment Upcoming Encounters Date Type Department Care Team (Late st Contact Info) Description 08/23/2025 12:45 PM EST Office Visit [facility] Electrophysiology [address] [place] [address] [place] [address] [place] [address] [address] [place] [address] documented as of this encounter Visit Diagnoses Not on filedocumented in this encounter Care Teams Hotel Custodian Relationship Specialty Start Date End Date Alfred Cantu MD [address] [place] [address] [place] [address] PCP - General General Internal Medicine 08/29/22 Lyndsey Key MD [address] [facility] [address] [address] Captain Assistant Interventional Cardiology 08/29/22 [place] [address] [place] [address] [address] Captain Assistant Electrophysiology 05/19/24 documented as of this encounter
--- OUTSIDE RECORDS SUMMARY | 2025-05-24 17:05 | XMS_ITS | Encounter Summary ---
Author Organization [employer] ([place], [place], [place], [place]) Address [address] [place] [address] Care Team Providers Care Milk Handler Name Role Phone Alfred Cantu MD Primary Care Provider [phone] Lyndsey Key MD Unavailable [phone] Vik Corcoran MD Unavailable Encounter Details Date Type Department Care Team (Late st Contact Info) Description 10/28/2018 Transcribed Document [facility] Family Medicine [facility] [place] [address] ProviderRashard MD [address] [place] [address] Social History Tobacco Use Types Packs/Day [...] has hx of CM Recently admitted to [facility] for 3 days - then sent [...] 500 mg oral tablet: 1 Tab, Oral, [id number], for 7 Day(s), 7 Tab, 0 Refill(s) [...] History of obstructive sleep apnea / IMO [id number] / Confirmed, Active Problems (9) Allergic asthma Apnea, sleep Chronic GERD Dyspnea H/O hyperlipidemia H/O mitral valve insufficiency History of obstructive sleep apnea Hx of obesity Hypertension Histories Past Medical History: No active or resolved past medical history items have been selected or recorded. Family History: No family history items have been selected or recorded. Procedure history: CHOLECYSTECTOMY ([id number]). hysterectomy. sinus surgery. cataract surgery - bilateral. upper gi. Comments: 07/08/2017 07:51 - ISRA JONSE RN ulcers. colonoscopty. Social History Social & [...] this consultation, will follow closely with you Electronically signed by Kavita, [facility] Conversion Wire Spooler Cerner at 11/28/2022 5:29 PM CDT documented in this encounter Plan of Treatment Upcoming Encounters Date Type Department Care Team (Late st Contact Info) Description 08/23/2025 12:45 PM EST Office Visit [facility] Electrophysiology [address] [place] [address] Vik Corcoran MD [address] [facility] [address] [place] [address] documented as of this encounter Visit Diagnoses Not on filedocumented in this encounter Care Teams Milk Handler Relationship Specialty Start Date End Date Alfred Cantu MD [address] [place] [address] [place] [address] PCP - General General Internal Medicine 08/29/22 Lyndsey Key MD [address] [facility] [address] [place] [address] Cardiac/Vascular Sonographer Interventional Cardiology 08/29/22 Vik Corcoran MD [address] [facility] [place] [place] [address] Cardiac/Vascular Sonographer Electrophysiology 05/19/24 documented as of this encounter
--- OUTSIDE RECORDS SUMMARY | 2025-05-24 17:05 | XMS_ITS | Encounter Summary ---
Author Organization [employer] ([place], [place], [place], [place]) Address [address] [place] [address] Care Team Providers Care Chairman President And Chief Executive Officer Name Role Phone Alfred Cantu MD Primary Care Provider [phone] Lyndsey Key MD Unavailable [phone] Vik Corcoran MD Unavailable Encounter Details Date Type Department Care Team (Late st Contact Info) Description 10/30/2018 Transcribed Document [facility] [place] [address] ProviderRashard MD [address] [place] [address] Social History Tobacco Use Types Packs/Day [...] has hx of CM [facility] - then sent [...] 500 mg oral tablet: 1 Tab, Oral, [id number], for 7 Day(s), 7 Tab, 0 Refill(s) [...] History of obstructive sleep apnea / IMO [id number] / Confirmed, Active Problems (9) Allergic asthma Apnea, sleep Chronic GERD Dyspnea H/O hyperlipidemia H/O mitral valve insufficiency History of obstructive sleep apnea Hx of obesity Hypertension Histories Past Medical History: No active or resolved past medical history items have been selected or recorded. Family History: No family history items have been selected or recorded. Procedure history: CHOLECYSTECTOMY ([id number]). hysterectomy. sinus surgery. cataract surgery - bilateral. [...] if local Physician can't Electronically signed by [facility], [facility] Conversion Newborn Hearing Screener Cerner at 11/28/2022 5:33 PM CDT documented in this encounter Plan of Treatment Upcoming Encounters Date Type Department Care Team (Late st Contact Info) Description 08/23/2025 12:45 PM EST Office Visit [facility] Electrophysiology [address] [place] [address] [place] [address] [place] [address] [address] [place] [address] documented as of this encounter Visit Diagnoses Not on filedocumented in this encounter Care Teams Chairman President And Chief Executive Officer Relationship Specialty Start Date End Date Alfred Cantu MD [address] [place] [address] [place] [address] PCP - General General Internal Medicine 08/29/22 Lyndsey Key MD [address] [place] [address] [address] [place] [id number] [place] Interventional Cardiology 08/29/22 Vik Corcoran MD [address] [place] [address] [address] [place] [id number] [place] Electrophysiology 05/19/24 documented as of this encounter
--- OUTSIDE RECORDS SUMMARY | 2025-05-24 17:05 | XMS_ITS | Continuity of Care Document ---
Author Organization [facility] Clini [facility], PAIN MEDICINE [address] [place] [address] Assessment Encounter Date Assessment Date Assessment LastModified by Organization Details LastModified Time 04/27/2025 04/27/2025 This is an 84-year-old female [...] falls as a result of weakness. PMH: AJasminfib (ASA) PSHx: Pacemaker (not MRI compatible) 1. CT scan lumbar spine 06/30/2023 demonstrates severe L4-5 spinal canal stenosis with grade 1 L5-S1 anterolisthesis. Severe multilevel disc and facet arthritis 2. CT myelogram performed 06/24/2024 at [facility] demonstrates moderate central stenosis L2-3. Moderate central stenosis L4-5 and L5-S1. Bilateral facet hypertrophy throughout lumbar spine and associated foraminal stenosis. 3. CT myelogram of the lumbar spine performed 03/17/2025 at [facility] demonstrates severe central stenosis L3-4, moderate central [...] Organization Details Last Modified Time Details Appointments RECHEC Angel Luis teresa 2024 01:30P M RUTH FUENTES MD Not available Not available Not available Lab None record ed. Referral neurol ogical surgeo n referr al 2024 025 [facility] Neurosurgery, [address] [place], [address], 05/11/2025 15:05:20 Procedures None record ed. Surgeries None record ed. Imaging None record ed. Medication Orders None record ed. Patient TargetsNo targets recorded. Patient InstructionsNo instructions recorded. Reason for Referral Neurological Surgeon Referra l for Spinal stenosis of lumbar region failed SCS Trial and [place] Referring Physician: Dandre Khan, Pain Management, Encounter Date: 04/27/2025 Problems No Known Problems Procedures Surgical History Date Name Laterality Status Provider Name and Address Organization Details Recorded Time 04/15/20 25 Lumbar Epidural Steroid Injection - Ean completed MURALI TRAMMELL MD [facility] [place], [address], [facility] 04/15/2025 15:49:19 03/28/20 25 SCS Trial - Ean completed MURALI TRAMMELL MD [address] [place], [address], [facility] 03/28/2025 14:58:49 09/17/19 25 Lumbar Epidural Steroid Injection - Ean completed MURALI TRAMMELL MD [address] [place], [address], [facility] 09/17/2024 14:53:42 07/01/20 24 Sacroiliac Joint Injection - Ean completed MURALI TRAMMELL MD [address] [place], [address], [facility] 07/01/2024 12:32:17 02/17/20 24 Lumbar RFA Bilateral - Ean completed MURALI TRAMMELL MD [facility] [place], [address], [facility] 02/17/2024 13:22:27 02/03/20 24 Lumbar MBB bilateral 2 level - Ean completed MURALI TRAMMELL MD [address] [place] [address], [phone], [facility] 02/03/2024 16:09:45 01/26/20 24 Lumbar MBB bilateral 2 level - Ean completed MURALI TRAMMELL MD [address] [place] [address], [address], [facility] 01/26/2024 14:50:15 08/11/19 19 procedure on heart completed Graciela [facility] 12/26/2023 10:35:46 cholecystectomy completed [facility] 12/26/2023 10:36:02 Appendectomy completed [facility] 12/26/2023 10:36:17 Imaging Results None recorded. Procedure Notes None recorded. Medical Equipment None Reported. Allergies Allergen ID Allergen Name Allergen Category Reaction Reaction Severity Criticality Documentation Date Start Date Code Code System Note Provider Name and Address Organization Details Recorded Time 420548 Substance with sulfonami de structure and antibacte rial mechanism of action (substanc e) medicatio n Not available Not available Not available 12/26/2023 33701 8003 SNOMED Gracielanikita Clark [facility] 10:27:37 736400 latex environme nt,medica tion itching Not available Not available 06/28/2024 29456 91 RxNorm Burni ng and itchi ng Meena Jefferson [facility] 4 14:01:35 Medications Name Sig Start Date [...] Not Available Vitals Date Recorded Body height Oxygen saturation Oxygen saturation in Arterial blood by Pulse oximetry Heart rate Systolic And Diastolic Provider Name and Address Organization Details Last Updated DateTime 5 152.4 cm 97 % 97 % 70 /min 132/82 mm[Hg] Kurtis Ramos [facility] 5 11:16:20 Social History Question Answer Notes LastModified by Sounder Details LastModified Time Tobacco Smoking Status Never Smoker [facility] 12/26/2023 10:35:11 What Was The Date Of Your Most Recent Tobacco Screening? 04/27/2025 [email or web address] Information not available 04/27/2025 What Is Your Relationship Status? [email or web address] Information not available 12/26/2023 Has Tobacco Cessation Counseling Been Provided? No [email or web address] Information not available 12/26/2023 Sex: Unknown Functional Status Question Answer Note LastModified by [employer] Details LastModified Time Do you use any illicit or recreational drugs? No [email or web address] Information not available 12/26/2023 Do you or have you ever used any other forms of tobacco or nicotine? No [email or web address] Information not available 12/26/2023 What is your level of alcohol consumption? None Information not available 12/26/2023 Are you currently employed? No [email or web address] Information not available 12/26/2023 Mental Status None recorded. Family History Relationship Description Onset Age of this Age Resolved Age Notes LastModified by Organization Details LastModified Time Sister Family history of malignant neoplasm [email or web address] Not available 12/25 10:34:59 Medical History Condition Response Heart Problems Y Bleeding Disorder N Hearing Loss Y Arthritis Y Kidney Stones N Blood Clot N Blood Transfusion N Colon/Rectal Disorders N Cancer N Stroke N COPD N Asthma Y Blood Thinners N Sleep Apnea Y Thyroid Disorder N High Cholesterol Y Liver Disease N Heart Attack (MD) Headaches N Hypertension Y Osteoporosis N Kidney Disease N Gynecological HistoryNo gynecological history recorded. Obstetrics History GPAL:G 0 P 0 0 0 0 Past Encounters Encounter ID Performer Location Encounter Start Date Encounter Closed Date Diagnosis/Indication Diagnosis SNOMED-CT Code Diagnosis ICD10 Code Diagnosis IMO Codes Diagnosis Note [id number] MURALI TRAMMELL MD [facility] [address] [facility], [address] [place] [address] 1 03/28/2025 12:13:45 03/28/2025 16:28:25 Lumbar radiculopathy 653871530 M54.16 [id number] DANDRE KHAN PA-C PAIN MEDICINE [address] [place] [address] 1 03/30/2025 14:34:32 03/30/2025 16:17:57 Lumbar radiculopathy 009219244 M54.16 [id number] MURALI TRAMMELL MD PAIN MEDICINE [address] [place] [address] 1 04/01/2025 09:38:03 04/01/2025 11:49:09 Lumbar radiculopathy 612783689 M54.16 74179 Spinal eliezer nosis of lumbar region 29770561 M48.062 762363 [id number] MURALI TRAMMELL MD [facility] [address] [facility], [facility] [address] [place] [address] 1 04/15/2025 14:01:01 04/15/2025 15:53:59 Lumbar radiculopathy 937519055 M54.16 [id number] DANDRE KHAN PA-C PAIN MEDICINE [address] [place] [address] 1 04/27/2025 10:15:10 04/27/2025 16:19:55 Lumbar radiculopathy 770432454 M54.16 06867 Spinal eliezer nosis of lumbar region 75154018 M48.062 465876 Lumbar spondylosis 35297 0009 M47.816 Degenerati on of lumbar intervertebral disc 76992602 M51.362 Displaceme nt of lumbar intervertebral disc 4583722670 M51.26 Inflammati on of sacroiliac joint 07564205 M46.1 Health Concerns Section Related Observation LastModified by Organization Detai ls LastModified Time None Recorded Concern Status LastModified by Organization Details LastModified Time None Recorded Payers Encounter Date Sequence Insurance Name Policy Number Policy Fritz Covered Member ID Fritz Member ID Guarantor Name 04/27/2025 1 [place] Kathy Jimenez [id number] Kathy Jimenez 04/27/2025 2 [employer] (MEDICARE SUPPLEMENT) Kathy Jimenez [id number] Kathy Jimenez Notes Date Note Type Note Provider Name and Address Organization Details Recorded Time 025 text/ht ml Pain Management L-spine GISHReported [...] For previous pt, patient reportsdate completed: 2022 ([facility]anddid not help. For previous emergency care tech, patient reportsnone. End of SCS TrialReported by [...] very sore and itching around SCS site. DANDRE KHAN PA-C [address] [place], [address], [facility] 04/27/2025 11:39:25 OBGyn Episode No OBEpisode recorded.
--- OUTSIDE RECORDS SUMMARY | 2025-05-24 17:05 | XMS_ITS | Encounter Summary ---
Author Organization [employer] ([place], [place], [place], [place]) Address [address] [place] [address] Care Team Providers Care Manager Restaurant Name Role Phone Alfred Cantu MD Primary Care Provider [phone] Lyndsey Key MD Unavailable [phone] Vik Corcoran MD Unavailable Reason for Referral * CAT Scan (Routine) - Closed Specialty Diagnoses / Procedures Referred By Asher knowles Referred To Contact Radiology Diagnoses Postlaminectomy syndrome Procedures CT spine thoracic with contrast CT spine lumbar without contrast Julisa Abbott PA [address] [place] [address] Phone: tel: fax: Referral ID Status Reason Start Date Expiration Date Visits Re quested Visits Authorized [id number] Closed 03/10/2025 03/10/2026 1 1 Encounter Details Date Type Department Care Team (Latest Contact Info) Description 03/10/2025 Outside Orders [facility] Central Scheduling 1 [place] [address] Julisa Abbott PA [address] [place] [address] Postlaminectomy syndrome (Primary Dx) Social [...] Date Ezra rded Speak language other than Estonian at home Not on file 08/29/2023 Want [...] Visit [facility] Electrophysiology [address] [place] [address] Vik Corcoran MD [address] [place] [address] [address] [place] [address] documented as of this encounter Results * CT spine thoracic with contrast (03/17/2025 [...] dictated by Figueroa Jasso MD Julisa TALAVERA IM CT ORDERABLES Final Result documented in this encounter Visit Diagnoses Diagnosis Postlaminectomy syndrome- Primary Postlaminectomy syndrome, unspecified region Postlaminectomy syndrome Postlaminectomy syndrome, unspecified region documented in this encounter Care Teams Manager Restaurant Relationship Specialty Start Date End Date Alfred Cantu MD [address] [place] [address] [place] [address] PCP - General General Internal Medicine 08/29/22 Lyndsey Key MD [address] [facility] [address] [place] [address] Digital Program Manager Interventional Cardiology 08/29/22 Vik Corcoran MD [address] [facility] [place] [address] Digital Program Manager Electrophysiology 05/19/24 documented as of this encounter
--- OUTSIDE RECORDS SUMMARY | 2025-05-24 17:05 | XMS_ITS | Encounter Summary ---
Author Organization [employer] ([place], [place], [place], [place]) Address [address] [place] [address] Care Team Providers Care Social Services Specialist Name Role Phone Alfred Cantu MD Primary Care Provider [phone] Lyndsey Key MD Unavailable [phone] Vik Corcoran MD Unavailable Encounter Details Date Type Department Care Team (Late st Contact Info) Description 10/29/2018 Transcribed Document [facility] Family Medicine [facility] [place] [address] ProviderRashard MD [address] [place] [address] Social History Tobacco Use Types Packs/Day [...] Description 08/23/2025 12:45 PM EST Office Visit [facility] Electrophysiology [address] [place] [address] [place] [address] [place] [address] [address] [place] [address] documented as of this encounter Visit Diagnoses Not on filedocumented in this encounter Care Teams Social Services Specialist Relationship Specialty Start Date End Date Alfred Cantu MD [address] [place] [address] PCP - General General Internal Medicine 08/29/22 Lyndsey Key MD [address] [facility] [address] [address] Content Coordinator Interventional Cardiology 08/29/22 [place] [address] [place] [address] [address] Content Coordinator Electrophysiology 05/19/24 documented as of this encounter
--- OUTSIDE RECORDS SUMMARY | 2025-05-24 17:05 | XMS_ITS | Continuity of Care Document ---
Author Organization [facility] Clini [facility], [facility] Address [address] [facility] [address] [place] [address] Assessment No assessment recorded. Plan of Treatment Reminders Order Date Submit Date Provider Last Modified By Organization Details Last Modified Time Details Appointments RECHEC K r 2024 01:30P M RUTH FUENTES MD Not available Not available Not available Lab None record ed. Referral None record [...] r spine No observ ation record ed. [facility] Central Scheduling [address], [place], [address], 03/22/2025 09:42:43 03/17/2003/17/2025 CT, myelo gram, thora cic spine No observ ation record ed[facility] [address], [place], [address], 03/22/2025 09:42:29 Result Notes None recorded. Problems No Known Problems Procedures Surgical History Date Name Laterality Status Provider Name and Address Organization Details Recorded Time 04/15/20 Lumbar Epidural Steroid Injection - Ean completed MURALI TRAMMELL MD [address] [place], [address], [facility] 04/15/2025 15:49:19 03/28/20 25 SCS Trial - Ean completed MURALI TRAMMELL MD [address] [place], [address], [facility] access hospital 03/28/2025 14:58:49 09/17/19 25 Lumbar Epidural Steroid Injection [place] [address] [place] [address], [address], Critical access hospital 09/17/2024 14:53:42 07/01/20 24 Sacroiliac Joint Injection [place] [address] [place] [address], [address], Critical access hospital 07/01/2024 12:32:17 02/17/20 24 Lumbar RFA Bilateral - [place] [address] [place] [address], [address], Critical access hospital 02/17/2024 13:22:27 02/03/20 24 Lumbar MBB bilateral 2 level - [place] [address] [place] [address], [address], Critical access hospital 02/03/2024 16:09:45 01/26/20 24 Lumbar MBB bilateral 2 level - [place] [address] [place] [address], [address], Critical access hospital 01/26/2024 14:50:15 08/11/19 19 procedure on heart completed Graciela Eduardo [facility] 12/26/2023 10:35:46 cholecystectomy completed Graciela Eduardo [facility] 12/26/2023 10:36:02 Appendectomy completed Graciela Eduardo [facility] 12/26/2023 10:36:17 Imaging Results None recorded. Procedure Notes None recorded. Medical Equipment None Reported. Allergies Allergen ID Allergen Name Allergen Category Reaction Reaction Severity Criticality Documentation Date Start Date Code Code System Note Provider Name and Address Organization Details Recorded Time 355237 Substance with sulfonami de structure and antibacte rial mechanism of action (substanc e) medicatio n Not available Not available Not available 12/26/2023 53319 8003 SNOMED Graciela Clark [facility] 4 10:27:37 008892 latex environme nt,medica tion itching Not available Not available 06/28/2024 52826 91 RxNorm Burni ng and itchi ng Meena Jefferson [facility] 4 14:01:35 Medications Name Sig Start Date [...] Not Available Not Available Not Available Vitals None Recorded Social History Question Answer Notes LastModified by [employer] Details LastModified Time Tobacco Smoking Status Never Smoker Graciela Clark [facility] 12/26/2023 10:35:11 What Was The Date Of Your Most Recent Tobacco Screening? 04/27/2025 [email or web address] Information not available 04/27/2025 What Is Your Relationship Status? [email or web address] Information not available 12/26/2023 Has Tobacco Cessation Counseling Been Provided? No [email or web address] Information not available 12/26/2023 Sex: Unknown Functional Status Question Answer Note LastModified by [employer] Details LastModified Time Do you use any illicit or recreational drugs? No [email or web address] Information not available 12/26/2023 Do you or have you ever used any other forms of tobacco or nicotine? No [email or web address] Information not available 12/26/2023 What is your level of alcohol consumption? None [email or web address] Information not available 12/26/2023 Are you currently employed? No Information not available 12/26/2023 Mental Status None recorded. Family History Relationship Description Onset Age of this Age Resolved Age Notes LastModified by Organization Details LastModified Time Sister Family history of malignant neoplasm Not available 12/25 10:34:59 Medical History Condition Response Heart Problems Y Kidney Stones N Blood Transfusion N Colon/Rectal Disorders N COPD N Heart Attack ([place]) Bleeding Disorder N Arthritis Y Hearing Loss [...] ICD10 Code Diagnosis IMO Codes Diagnosis Note [id number] MURALI TRAMMELL MD [facility] [address] [facility], [address] [place] [address] 1 03/28/2025 12:13:45 03/28/2025 16:28:25 Lumbar radiculopathy 095613772 M54.16 03398 [id number] DANDRE KHAN PA-C PAIN MEDICINE [address] [place] [address] 1 03/30/2025 14:34:32 03/30/2025 16:17:57 Lumbar radiculopathy 834644929 M54.16 90619 [id number] MURALI TRAMMELL MD PAIN MEDICINE [address] [place] [address] 1 04/01/2025 09:38:03 04/01/2025 11:49:09 Lumbar radiculopathy 939161778 M54.16 79132 Spinal eliezer nosis of lumbar region 31690318 M48.062 809279 [id number] MURALI TRAMMELL MD [facility] NAL [facility] [address] [facility], [place] [address] 1 04/15/2025 14:01:01 04/15/2025 15:53:59 Lumbar radiculopathy 429227579 M54.16 35050 Health Concerns Section Related Observation LastModified by Organization Detai ls LastModified Time None Recorded Concern Status LastModified by Organization Details LastModified Time None Recorded Payers Encounter Date Sequence Insurance Name Policy Number Policy Fritz Covered Member ID Fritz Member ID Guarantor Name 04/15/2025 1 [place] Kathy Crawfordr [id number] Kathy Crawfordr 04/15/2025 2 [employer] (MEDICARE SUPPLEMENT) Kathy Crawfordr [id number] Kathy Barbara OBGyn Episode No OBEpisode recorded.
--- OUTSIDE RECORDS SUMMARY | 2025-05-24 17:05 | XMS_ITS | Encounter Summary ---
Author Organization [employer] ([place], [place], [place], [place]) Address [address] [place] [address] [address] Care [address] Messenger Name Role Phone Alfred Cantu MD Primary Care Provider [phone] Lyndsey Key MD Unavailable [phone] Vik Corcoran MD Unavailable Encounter Details Date Type Department Care Team (Late st Contact Info) Description 10/28/2018 Transcribed Document [facility] Medicine [facility] [place] [address] ProviderRashard MD [address] [place] [address] Social History Tobacco Use Types Packs/Day [...] Rashard ProviderMD - 10/28/2018 2:00 AM CDT Pediatric Critical Care Nurse Details Entered On: 10/28/2018 2:08 EDT Performed [...] Alba Smallwood Rn - 10/28/2018 2:08 EDT documented in this encounter Plan of Treatment Upcoming Encounters Date Type Department Care Team (Late st Contact Info) Description 08/23/2025 12:45 PM EST Office Visit [facility] Electrophysiology [address] [place] [address] Vik Corcoran MD [address] [place] [address] [address] [place] [address] documented as of this encounter Visit Diagnoses Not on filedocumented in this encounter Care Teams Court Messenger Relationship Specialty Start Date End Date Alfred Cantu MD [address] [place] [address] PCP - General General Internal Medicine 08/29/22 Lyndsey Key MD [address] [place] [address] [address] Casual Shoe Inspector Interventional Cardiology 08/29/22 Vik Corcoran MD [address] [place] [address] [id number] Casual Shoe Inspector Electrophysiology 05/19/24 documented as of this encounter
--- OUTSIDE RECORDS SUMMARY | 2025-05-24 17:05 | XMS_ITS | Encounter Summary ---
Author Organization [employer] ([place], [place], [place], [place]) Address [address] [place] [address] Care Team Providers Care Sludge Control Attendant Name Role Phone Alfred Cantu MD Primary Care Provider [phone] Lyndsey Key MD Unavailable [phone] Vik Corcoran MD Unavailable Encounter Details Date Type Department Care Team (Late st Contact Info) Description 10/29/2018 Transcribed Document [facility] [place] [facility] [place] [address] ProviderRashard MD [address] [place] [address] Social History Tobacco Use Types Packs/Day [...] Rashard ProviderMD - 10/29/2018 2:00 AM CDT Technology Resource Teacher Details Entered On: 10/29/2018 5:18 EDT Performed [...] 10/29/2018 5:17 EDT Electronically signed by Kavita, [facility] Conversion Accounts Payable Accountant Cerner at 11/28/2022 5:41 PM CDT documented in this encounter Plan of Treatment Upcoming Encounters Date Type Department Care Team (Late st Contact Info) Description 08/23/2025 12:45 PM EST Office Visit [facility] Electrophysiology [address] [place] [phone] Vik Corcoran MD [address] [place] [address] [address] [place], [place] [phone] documented as of this encounter Visit Diagnoses Not on filedocumented in this encounter Care Teams Sludge Control Attendant Relationship Specialty Start Date End Date Alfred Cantu MD [address] [place] [address] [place] [address] PCP - General General Internal Medicine 08/29/22 Lyndsey Key MD [address] [place] [address] [address] Funeral Location Manager Interventional Cardiology 08/29/22 Vik Corcoran MD [address] [place] [address] [phone] Funeral Location Manager Electrophysiology 05/19/24 documented as of this encounter
--- OUTSIDE RECORDS SUMMARY | 2025-05-24 17:05 | XMS_ITS | Encounter Summary ---
Author Organization [employer] ([place], [place], [place], [place]) Address [address] [place] [address] Care Team Providers Care Recovery Analyst Name Role Phone Alfred Cantu MD Primary Care Provider [phone] Lyndsey Key MD Unavailable [phone] Vik Corcoran MD Unavailable Encounter Details Date Type Department Care Team (Late st Contact Info) Description 05/07/2024 Outside Orders [facility] Central Scheduling 1 [place] [address] Julisa Abbott PA [address] [place] [address] Spinal stenosis, lumbar region with [...] EST Office Visit [facility] Electrophysiology [address] [place] [phone] Vik Corcoran MD [address] [place] [address] [address] [place], [place] [phone] documented as of this encounter Visit Diagnoses Diagnosis Spinal stenosis, lumbar region with neurogenic claudication- Primary documented in this encounter Care Teams Recovery Analyst Relationship Specialty Start Date End Date Alfred Cantu MD [address] [place] [address] PCP - General General Internal Medicine 08/29/22 Lyndsey Key MD [address] [place] [address] [address] Personal Lines Appraiser Interventional Cardiology 08/29/22 Vik Corcoran MD [address] [place] [address] [address] Personal Lines Appraiser Electrophysiology 05/19/24 documented as of this encounter
--- OUTSIDE RECORDS SUMMARY | 2025-05-24 17:06 | XMS_ITS | Encounter Summary ---
Author Organization [employer] ([place], [place], [place], [place]) Address [address] [place] [address] Care Team Providers Care Collections Officer Name Role Phone Alfred Cantu MD Primary Care Provider [phone] Lyndsey Key MD Unavailable [phone] Vik Corcoran MD Unavailable Encounter Details Date Type Department Care Team (Late st Contact Info) Description 10/27/2018 Transcribed Document [facility] [place] Family [place] [facility] [place] [address] ProviderRashard MD [address] [place] [address] Social History Tobacco Use Types Packs/Day [...] 1200 mg= 2 Tab, Oral, BID nystatin, [id number] Units= 10 mL, Swish and Swallow , [...] Description 08/23/2025 12:45 PM EST [facility] [address] [place] [phone] [place] [address] [place] [address] [address] [place] [address] documented as of this encounter Visit Diagnoses Not on filedocumented in this encounter Care Teams Collections Officer Relationship Specialty Start Date End Date Alfred Cantu MD [address] [place] [address] PCP - General General Internal Medicine 08/29/22 Lyndsey Key MD [address] [place] [address] [id number] University Extension Specialist Interventional Cardiology 08/29/22 Vik Corcoran MD [address] [place] [address] [address] [place], [place] [id number] University Extension Specialist Electrophysiology 05/19/24 documented as of this encounter
--- OUTSIDE RECORDS SUMMARY | 2025-05-24 17:06 | XMS_ITS | Encounter Summary ---
Author Organization [employer] ([place], [place], [place], [place]) Address [address] [place] [address] Care Team Providers Care Freight Brakeman Name Role Phone Alfred Cantu MD Primary Care Provider [phone] Lyndsey Key MD Unavailable [phone] Vik Corcoran MD Unavailable Encounter Details Date Type Department Care Team (Late st Contact Info) Description 10/23/2018 Transcribed Document [facility] [place] Family Medicine [facility] [place] [address] ProviderRashard MD [address] [place] [address] Social History Tobacco Use Types Packs/Day [...] Rashard ProviderMD - 10/23/2018 2:00 AM CDT Color Receiver Details Entered On: 10/23/2018 3:02 EDT Performed [...] 10/23/2018 3:02 EDT Electronically signed by Kavita [facility] Conversion Manager Professional Development Cerner at 11/28/2022 5:35 PM CDT documented in this encounter Plan of Treatment Upcoming Encounters Date Type Department Care Team (Late st Contact Info) Description 08/23/2025 12:45 PM EST Office Visit [facility] Electrophysiology [address] [place] [phone] Vik Corcoran MD [address] [place] [address] [address] [place] [address] [phone] documented as of this encounter Visit Diagnoses Not on filedocumented in this encounter Care Teams Freight Brakeman Relationship Specialty Start Date End Date Alfred Cantu MD [address] [place] [address] PCP - General General Internal Medicine 08/29/22 Lyndsey Key MD [address] [place] [address] [address] Meat Molder Interventional Cardiology 08/29/22 Vik Corcoran MD [address] [place] [address] [id number] Meat Molder Electrophysiology 05/19/24 documented as of this encounter
--- OUTSIDE RECORDS SUMMARY | 2025-05-24 17:06 | XMS_ITS | Encounter Summary ---
Author Organization [employer] ([place], [place], [place], [place]) Address [address] [place] [address] Care Team Providers Care Television Director Name Role Phone Alfred Cantu MD Primary Care Provider [phone] Lyndsey Key MD Unavailable [phone] Vik Corcoran MD Unavailable Encounter Details Date Type Department Care Team (Late st Contact Info) Description 10/24/2018 Transcribed Document [facility] [place] [facility] [place] [address] ProviderRashard MD [address] [place] [address] Social History Tobacco Use Types Packs/Day [...] 10/24/2018 19:54 EDT Electronically signed by Kavita [facility] Conversion Vice President Tax Cerner at 11/28/2022 5:47 PM CDT documented in this encounter Plan of Treatment Upcoming Encounters Date Type Department Care Team (Late st Contact Info) Description 08/23/2025 12:45 PM EST Office Visit [facility] Electrophysiology [address] [place] [phone] [place] [address] [place] [address] [address] [place] [address] documented as of this encounter Visit Diagnoses Not on filedocumented in this encounter Care Teams Television Director Relationship Specialty Start Date End Date Alfred Cantu MD [address] [place] [address] PCP - General General Internal Medicine 08/29/22 Lyndsey Key MD [address] [place] [address] [address] Mds Nurse Interventional Cardiology 08/29/22 Vik Corcoran MD [address] [place] [address] [address] Mds Nurse Electrophysiology 05/19/24 documented as of this encounter
--- OUTSIDE RECORDS SUMMARY | 2025-05-24 17:06 | XMS_ITS | Encounter Summary ---
Author Organization [employer] ([place], [place], [place], [place]) Address [address] [place] [address] Care Team Providers Care Head Miller Name Role Phone Alfred Cantu MD Primary Care Provider [phone] Lyndsey Key MD Unavailable [phone] Vik Corcoran MD Unavailable Encounter Details Date Type Department Care Team (Late st Contact Info) Description 10/27/2018 Transcribed Document [facility] [place] [place] [facility] [address] ProviderRashard MD [address] [place] [address] Social History Tobacco Use Types Packs/Day [...] Rashard ProviderMD - 10/27/2018 2:00 AM CDT Redevelopment Manager Details Entered On: 10/27/2018 5:17 EDT Performed [...] 10/27/2018 5:17 EDT Electronically signed by Kavita, [facility] Conversion Impact Hammer Operator Cerner at 11/28/2022 5:40 PM CDT documented in this encounter Plan of Treatment Upcoming Encounters Date Type Department Care Team (Late st Contact Info) Description 08/23/2025 12:45 PM EST Office Visit [facility] Electrophysiology [address] [place] [phone] Vik Corcoran MD [address] [place] [address] [address] [place] [address] documented as of this encounter Visit Diagnoses Not on filedocumented in this encounter Care Teams Head Miller Relationship Specialty Start Date End Date Alfred Cantu MD [address] [place] [address] PCP - General General Internal Medicine 08/29/22 Lyndsey Key MD [address] [place] [address] [address] Compensation Coordinator Interventional Cardiology 08/29/22 Vik Corcoran MD [address] [place] [address] [address] Compensation Coordinator Electrophysiology 05/19/24 documented as of this encounter
--- OUTSIDE RECORDS SUMMARY | 2025-05-24 17:06 | XMS_ITS | Encounter Summary ---
Author Organization [employer] ([place], [place], [place], [place]) Address [address] [place] [address] Care Team Providers Care Tanker Driver Name Role Phone Alfred Cantu MD Primary Care Provider [phone] Lyndsey Key MD Unavailable [phone] Vik Corcoran MD Unavailable Encounter Details Date Type Department Care Team (Late st Contact Info) Description 10/25/2018 Transcribed Document [facility] [place] [facility] [place] [address] ProviderRashard MD [address] [place] [address] Social History Tobacco Use Types Packs/Day [...] Rashard ProviderMD - 10/25/2018 2:00 AM CDT Nurse Leader Details Entered On: 10/25/2018 0:27 EDT Performed [...] - 10/25/2018 0:27 EDT Electronically signed by [facility] Conversion Navy Seal Cerner at 11/28/2022 5:28 PM CDT documented in this encounter Plan of Treatment Upcoming Encounters Date Type Department Care Team (Late st Contact Info) Description 08/23/2025 12:45 PM EST Office Visit [facility] Electrophysiology [address] [place] [phone] Vik Corcoran MD [address] [place] [address] [address] [place] [address] documented as of this encounter Visit Diagnoses Not on filedocumented in this encounter Care Teams Tanker Driver Relationship Specialty Start Date End Date Alfred Cantu MD [address] [place] [address] PCP - General General Internal Medicine 08/29/22 Lyndsey Key MD [address] [place] [address] [address] Social Service Liaison Interventional Cardiology 08/29/22 Vik Corcoran MD [address] [place] [address] [address] Social Service Liaison Electrophysiology 05/19/24 documented as of this encounter
--- OUTSIDE RECORDS SUMMARY | 2025-05-24 17:06 | XMS_ITS | Encounter Summary ---
Author Organization [employer] ([place], [place], [place], [place]) Address [address] [place] [address] Care Team Providers Care Curriculum Writer Name Role Phone Alfred Cantu MD Primary Care Provider [phone] Lyndsey Key MD Unavailable [phone] Vik Corcoran MD Unavailable Encounter Details Date Type Department Care Team (Late st Contact Info) Description 10/27/2018 Transcribed Document [facility] [place] Family [place] [facility] [place] [address] ProviderRashard MD [address] [place] [address] Social History Tobacco Use Types Packs/Day [...] Rashard ProviderMD - 10/27/2018 1:31 PM CDT [address] , [place] [address] Patient Copy Patient Information: Name: KATHY JIMENEZ Current Date: 10/27/2018 13:31:54 : 1940 Patient Address: [address] [place] [address] [place] [address] Patient Attending Physician: CARMELLA MEI MD-INT Primary Care Provider: ZAY, NOT LISTED Primary Care Provider Phone: Discharge Diagnosis: Weight on Admission: 194 lb, 1 oz Weight at Discharge: 183 lb, 5 oz Comment: Follow-up Instructions: With: Address: When: [address] [place] [address] Business (1) Within 2 weeks Comments: You [...] Follow these instructions at home: Medicines??? Take qtkk-mru-tnfbcqt and prescription medicines only as told by [...] and water are not available, use hand anesthesia associate. ? Change your dressing as told by [...] radio towers. ??? Do notuse amateur ( Nooga.com ) radio equipment or electric ( arc [...] 12/08/2007 Document Revised: 04/21/2017 Document Reviewed: 03/06/2015 [employer] Interactive Patient Education ? 2017 [employer] Inc. Smoking Hazards Smoking cigarettes is extremely [...] contain harmful chemicals. FOR MORE INFORMATION ??? [place] Lung Association: www.lung.org ??? [place] Cancer Society: www.cancer.org This information is not intended to replace advice given to you by your health care provider. Make sure you discuss any questions you have with your health care provider. Document Released: 09/04/2005 Document Revised: 11/18/2016 Document Reviewed: 01/17/2014 [employer] Interactive Patient Education ? 2017 [employer]. Heart-Healthy Eating Plan Many factors influence [...] foods can I eat? Grains Breads, including Spanish, white, serenity, wheat, raisin, rye, oatmeal, and Greek. Tortillas that are neither fried nor made with lard or trans fat. Low-fat rolls, including hotdog and hamburger buns and Australian muffins. Biscuits. Muffins. Waffles. Pancakes. Light popcorn. [...] cheese. Whole milk cheeses, including blue (henry), [place] Gary, Brie, Hayes, Burundian, Havarti, Mauritian, cheddar, Camembert, and Pelham. Whole or 2% milk that is liquid, [...] that has suet, meat fat, or shortening. Gladwin butter, hydrogenated oils, palm oil, coconut oil, [...] 05/06/2009 Document Revised: 02/14/2017 Document Reviewed: 01/19/2015 [employer] Interactive Patient Education ? 2017 [employer]. How to Take a Pulse Your pulse [...] 02/01/2004 Document Revised: 02/14/2017 Document Reviewed: 12/31/2016 [employer] Interactive Patient Education ? 2017 [employer] Inc. How to Take Your Blood Pressure [...] 09/22/2014 Elsevier Interactive Patient Education ? 2017 [employer] Inc. Cardiomyopathy, Adult Cardiomyopathy is a long-term [...] Other treatments may include cardiac resynchronization therapy (OIL FIRE SPECIALIST) or a left ventricular assist device (LVAD). [...] to manage stress. General instructions ??? Take yvfb-zfr-bgkitwp and prescription medicines only as told by [...] 10/10/2005 Document Revised: 03/25/2017 Document Reviewed: 01/27/2017 [employer] Interactive Patient Education ? 2017 [employer]. Medication Leaflets: bumetanide (oral/injection) (huong mccain) Bumex [...] may report side effects to FDA at 5-908-XNZ-0943. What other drugs will affect bumetanide? Bumetanide [...] drugs may affect bumetanide, including prescription and fxmq-wap-xkhbqmb medicines, vitamins, and herbal products. Not all [...] to ensure that the information provided by [employer]. ('[employer]') is accurate, up-to-date, and complete, but no guarantee is made to that effect. Drug information contained herein may be time sensitive. [employer] information has been compiled for use by healthcare practitioners and consumers in the [place] and therefore [employer] does not warrant that uses outside of the [place] are appropriate, unless specifically indicated otherwise. [employer] drug information does not endorse drugs, diagnose patients or recommend therapy. [employer] drug information is an informational resource designed [...] effective or appropriate for any given patient. [employer] does not assume any responsibility for any aspect of healthcare administered with the aid of information [facility] provides. The information contained herein is not intended to cover all possible uses, directions, precautions, warnings, drug interactions, allergic reactions, or adverse effects. If you have questions about the drugs you are taking, check with your doctor, nurse or pharmacist. Copyright 5048-9697 [employer]. Version: 7.01. Revision Date: 08/13/2018. carvedilol (PRABHJOT [...] may report side effects to FDA at 7-490-IVJ-6251. What other drugs will affect carvedilol? Other drugs may interact with carvedilol, including prescription and oqbr-bmr-nqvhmit medicines, vitamins, and herbal products. Tell each [...] to ensure that the information provided by [employer]. ('[employer]') is accurate, up-to-date, and complete, but no guarantee is made to that effect. Drug information contained herein may be time sensitive. [employer] information has been compiled for use by healthcare practitioners and consumers in the [place] and therefore [employer] does not warrant that uses outside of the [place] are appropriate, unless specifically indicated otherwise. [employer] drug information does not endorse drugs, diagnose patients or recommend therapy. [employer] drug information is an informational resource designed [...] effective or appropriate for any given patient. [employer] does not assume any responsibility for any aspect of healthcare administered with the aid of information [employer] provides. The information contained herein is not intended to cover all possible uses, directions, precautions, warnings, drug interactions, allergic reactions, or adverse effects. If you have questions about the drugs you are taking, check with your doctor, nurse or pharmacist. Copyright 2683-7176 [employer]. Version: 15.. Revision Date: 08/30/2013. albuterol and [...] Office Visit [facility] Electrophysiology [address] [place] [phone] [place] [address] [place] [address] [address] [place] [phone] documented as of this encounter Visit Diagnoses Not on filedocumented in this encounter Care Teams Curriculum Writer Relationship Specialty Start Date End Date Alfred Cantu MD [address] [place] [address] PCP - General General Internal Medicine 08/29/22 [place] [address] [place] [address] [address] [place] [address] Enrolled Agent Interventional Cardiology 08/29/22 Vik Corcoran MD [address] [facility] [place] [address] Enrolled Agent Electrophysiology 05/19/24 documented as of this encounter
--- OUTSIDE RECORDS SUMMARY | 2025-05-24 17:06 | XMS_ITS | Encounter Summary ---
Author Organization [employer] ([place], [place], [place], [place]) Address [address] [place] [address] Care Team Providers Care Military Lawyer Name Role Phone Alfred Cantu MD Primary Care Provider Lyndsey Key MD Unavailable [phone] Vik Corcoran MD Unavailable Encounter Details Date Type Department Care Team (Late st Contact Info) Description 10/27/2018 Transcribed Document [facility] [place] Family Medicine [facility] [place] [address] ProviderRashard MD [address] [place] [address] Social History Tobacco Use Types Packs/Day [...] 10/27/2018 14:34 EDT Electronically signed by Kavita [facility] Conversion Trains Dispatcher Supervisor Cerner at 11/28/2022 5:41 PM CDT documented in this encounter Plan of Treatment Upcoming Encounters Date Type Department Care Team (Late st Contact Info) Description 08/23/2025 12:45 PM EST Office Visit [facility] Electrophysiology [address] [place] [phone] Vik Corcoran MD [address] [place] [address] [address] [place], [place] [phone] documented as of this encounter Visit Diagnoses Not on filedocumented in this encounter Care Teams Military Lawyer Relationship Specialty Start Date End Date Alfred Cantu MD [address] [place] [address] PCP - General General Internal Medicine 08/29/22 Lyndsey Key MD [address] [place] [address] [address] Machine Molder Squeeze Interventional Cardiology 08/29/22 Vik Corcoran MD [address] [place] [address] [address] [place], [place] [id number] Machine Molder Squeeze Electrophysiology 05/19/24 documented as of this encounter
--- OUTSIDE RECORDS SUMMARY | 2025-05-24 17:06 | XMS_ITS | Encounter Summary ---
Author Organization [employer] ([place], [place], [place], [place]) Address [address] [place] [address] Care Team Providers Care Topstitcher Lockstitch Name Role Phone Alfred Cantu MD Primary Care Provider [phone] Lyndsey Key MD Unavailable [phone] Vik Corcoran MD Unavailable Encounter Details Date Type Department Care Team (Late st Contact Info) Description 10/25/2018 Transcribed Document [facility] [place] Family [place] [address] [place] [address] ProviderRashard MD [address] [place] [address] Social History Tobacco Use Types Packs/Day [...] EST Office Visit [facility] Electrophysiology [address] [place] [phone] [place] [address] [place] [address] [address] [place] [phone] documented as of this encounter Visit Diagnoses Not on filedocumented in this encounter Care Teams Topstitcher Lockstitch Relationship Specialty Start Date End Date Alfred Cantu MD [address] [place] [address] PCP - General General Internal Medicine 08/29/22 [place] [address] [place] [address] [address] [place] [address] Public Relations Officer Interventional Cardiology 08/29/22 [place] [address] [place] [address] [address] [place], [place] [id number] Public Relations Officer Electrophysiology 05/19/24 documented as of this encounter
--- OUTSIDE RECORDS SUMMARY | 2025-05-24 17:06 | XMS_ITS | Encounter Summary ---
Author Organization [employer] ([place], [place], [place], [place]) Address [address] [place] [address] Care Team Providers Care Hay Buckler Name Role Phone Alfred Cantu MD Primary Care Provider [phone] Lyndsey Key MD Unavailable [phone] Vik Corcoran MD Unavailable Encounter Details Date Type Department Care Team (Late st Contact Info) Description 10/27/2018 Transcribed Document [facility] [place] [address] ProviderRashard MD [address] [place] [address] Social History Tobacco Use Types Packs/Day [...] Rashard ProviderMD - 10/27/2018 5:52 PM CDT [address] , [place] [address] Patient Copy Patient Information: Name: KATHY CARTER Current Date: 10/27/2018 17:52:29 : 1940 Patient Address: [address] [place], [place] [address] [address] Patient Attending Physician: CARMELLA MEI MD-INT Primary [...] assistance finding a family MD please call [phone]. With: Address: When: NAZANIN NAVA [address] [place] [address] RD[address] [place] [address] [facility] (1) 9:00 AM Comments: You will [...] Use: [facility] for home oxygen [phone] Home Health Services: [facility] [phone] Immunizations Documented During Stay: No Immunizations Found [...] Follow these instructions at home: Medicines??? Take ouvr-zbh-dvzvusp and prescription medicines only as told by [...] and water are not available, use hand oyster grader. ? Change your dressing as told by [...] radio towers. ??? Do notuse amateur ( [employer] ) radio equipment or electric ( arc [...] 12/08/2007 Document Revised: 04/21/2017 Document Reviewed: 03/06/2015 [employer] Interactive Patient Education ? 2017 [employer] Smoking Hazards Smoking cigarettes is extremely [...] contain harmful chemicals. FOR MORE INFORMATION ??? [place] Lung Association: www.lung.org ??? [place] Cancer Society: www.cancer.org This information is not intended to replace advice given to you by your health care provider. Make sure you discuss any questions you have with your health care provider. Document Released: 09/04/2005 Document Revised: 11/18/2016 Document Reviewed: 01/17/2014 [employer] Interactive Patient Education ? 2017 [employer]. Heart-Healthy Eating Plan Many factors influence [...] foods can I eat? Grains Breads, including Bangladeshi, white, serenity, wheat, raisin, rye, oatmeal, and Estonian. Tortillas that are neither fried nor made with lard or trans fat. Low-fat rolls, including hotdog and hamburger buns and Brazilian muffins. Biscuits. Muffins. Waffles. Pancakes. Light popcorn. [...] cheese. Whole milk cheeses, including blue (henry), Converse Gary, Brie, Hayes, Iraqi, Havarti, South African, cheddar, Camembert, and Colton. Whole or 2% milk that is liquid, [...] that has suet, meat fat, or shortening. Tibbie butter, hydrogenated oils, palm oil, coconut oil, [...] 05/06/2009 Document Revised: 02/14/2017 Document Reviewed: 01/19/2015 [employer] Interactive Patient Education ? 2017 [employer]. How to Take a Pulse Your [...] 02/01/2004 Document Revised: 02/14/2017 Document Reviewed: 12/31/2016 [employer] Interactive Patient Education ? 2017 [employer]. How to Take Your Blood Pressure [...] 07/10/2009 Document Revised: 08/18/2015 Document Reviewed: 09/22/2014 [employer] Interactive Patient Education ? 2017 [employer]. Cardiomyopathy, Adult Cardiomyopathy is a long-term [...] Other treatments may include cardiac resynchronization therapy (ELECTRIC REFRIGERATOR SERVICER) or a left ventricular assist device (LVAD). [...] to manage stress. General instructions ??? Take ytjb-kkn-mccaoka and prescription medicines only as told by [...] 10/10/2005 Document Revised: 03/25/2017 Document Reviewed: 01/27/2017 [employer] Interactive Patient Education ? 2017 [employer]. Medication Leaflets: bumetanide (oral/injection) (bystephen mccain) [...] may report side effects to FDA at 8-253-CVI-5206. What other drugs will affect bumetanide? Bumetanide [...] drugs may affect bumetanide, including prescription and aump-bkn-sirtgwp medicines, vitamins, and herbal products. Not all [...] to ensure that the information provided by [employer]. ('[employer]') is accurate, up-to-date, and complete, but no guarantee is made to that effect. Drug information contained herein may be time sensitive. 24/7 Card information has been compiled for use by healthcare practitioners and consumers in the [place] and therefore 24/[employer] Card does not warrant that uses outside of the [place] are appropriate, unless specifically indicated otherwise. 24/7 Card's drug information does not endorse drugs, diagnose patients or recommend therapy. [employer] drug information is an informational resource designed [...] effective or appropriate for any given patient. [facility] does not assume any responsibility for any aspect of healthcare administered with the aid of information [facility] provides. The information contained herein is not intended to cover all possible uses, directions, precautions, warnings, drug interactions, allergic reactions, or adverse effects. If you have questions about the drugs you are taking, check with your doctor, nurse or pharmacist. Copyright 5025-[address] [address] [employer] Version: 7.01. Revision Date: 08/13/2018. carvedilol [...] may report side effects to FDA at 3-661-NZO9207. What other drugs will affect carvedilol? Other drugs may interact with carvedilol, including prescription and xhyb-pxm-soqklsn medicines, vitamins, and herbal products. Tell each [...] to ensure that the information provided by [employer]. ('[employer]') is accurate, up-to-date, and complete, but no guarantee is made to that effect. Drug information contained herein may be time sensitive. 24/7 Card information has been compiled for use by healthcare practitioners and consumers in the [place] and therefore 24/7 Card does not warrant that uses outside of the [place] are appropriate, unless specifically indicated otherwise. [employer] drug information does not endorse drugs, diagnose patients or recommend therapy. [employer] drug information is an informational resource designed [...] effective or appropriate for any given patient. [employer] does not assume any responsibility for any aspect of healthcare administered with the aid of information [employer] provides. The information contained herein is not intended to cover all possible uses, directions, precautions, warnings, drug interactions, allergic reactions, or adverse effects. If you have questions about the drugs you are taking, check with your doctor, nurse or pharmacist. Copyright 6033-4303 [employer]. Version: 15.. Revision Date: 08/30/2013. albuterol and [...] after using this medicine; ?? chest pain; Electronically signed by Kavita [facility] Conversion Rfid Technician Cerner at 11/28/2022 5:43 PM CDT documented in this encounter Plan of Treatment Upcoming Encounters Date Type Department Care Team (Late st Contact Info) Description 08/23/2025 12:45 PM EST Office Visit [facility] Electrophysiology [address] [place] [address] [place] [address] [place] [address] [address] [place] [address] documented as of this encounter Visit Diagnoses Not on filedocumented in this encounter Care Teams Hay Buckler Relationship Specialty Start Date End Date Alfred Cantu MD [address] [facility] [address] [place] [address] PCP - General General Internal Medicine 08/29/22 [place] [address] [place] [address] [address] [place], [place] [id number] Bioinformatics Associate Interventional Cardiology 08/29/22 [place] [address] [place] [address] [address] Bioinformatics Associate Electrophysiology 05/19/24 documented as of this encounter
--- OUTSIDE RECORDS SUMMARY | 2025-05-24 17:06 | XMS_ITS | Encounter Summary ---
Author Organization [employer] ([place], [place], [place], [place]) Address [address] [place] [address] Care Team Providers Care Electronic Bench Technician Name Role Phone Alfred Cantu MD Primary Care Provider [phone] Lyndsey Key MD Unavailable [phone] Vik Corcoran MD Unavailable Encounter Details Date Type Department Care Team (Late st Contact Info) Description 10/27/2018 Transcribed Document [facility] [place] [facility] [place] [address] ProviderRashard MD [address] [place] [address] Social History Tobacco Use Types Packs/Day [...] Dose decreased to 12.5 mg CIELO Billings, [facility] - 11/02/2018 10:43 EDT Medical Equipment For Home Use : [facility] for bedside commode and nebulizer [phone] REGINA TERRY Health Communications Specialist - 11/02/2018 12:21 EDT [facility] [phone] REGINA TERRY Health Communications Specialist - 10/27/2018 17:51 EDT Pain Management DC [...] EST Office Visit [facility] Electrophysiology [address] [place] [address] Vik Corcoran MD [address] [place] [address] [address] [place] [id number] documented as of this encounter Visit Diagnoses Not on filedocumented in this encounter Care Teams Electronic Bench Technician Relationship Specialty Start Date End Date Alfred Cantu MD [address] [place] [address] [place] [address] PCP - General General Internal Medicine 08/29/22 [place] [address] [place] [address] [address] [place] [id number] Master Planner Interventional Cardiology 08/29/22 [place] [address] [place] [address] [address] [place], [place] [id number] Master Planner Electrophysiology 05/19/24 documented as of this encounter
--- OUTSIDE RECORDS SUMMARY | 2025-05-24 17:06 | XMS_ITS | Encounter Summary ---
Author Organization [employer] ([place], [place], [place], [place]) Address [address] [place] [address] Care Team Providers Care Mail Manager Name Role Phone Alfred Cantu MD Primary Care Provider [phone] Lyndsey Key MD Unavailable [phone] Vik Corcoran MD Unavailable Encounter Details Date Type Department Care Team (Late st Contact Info) Description 10/23/2018 Transcribed Document [facility] Family Medicine [facility] [place] [address] ProviderRashard MD [address] [place] [address] Social History Tobacco Use Types Packs/Day [...] 38 kg/m2 High (10/20/18 23:04:00) Rapid Response Mail Manager #1 : JENNIFER VAN, RN JENNIFER VAN RN - 10/23/2018 23:04 EDT documented in this encounter Plan of Treatment Upcoming Encounters Date Type Department Care Team (Late st Contact Info) Description 08/23/2025 12:45 PM EST Office Visit [facility] Electrophysiology [address] [place] [address] [place] [address] [place] [address] [address] [place] [id number] documented as of this encounter Visit Diagnoses Not on filedocumented in this encounter Care Teams Mail Manager Relationship Specialty Start Date End Date Alfred Cantu MD [address] [place] [address] PCP - General General Internal Medicine 08/29/22 [place] [address] [place] [address] [address] [place], [place] [id number] Strike Warfare/Missile Systems Officer Interventional Cardiology 08/29/22 Vik Corcoran MD [address] [facility] [address] [place] [address] Strike Warfare/Missile Systems Officer Electrophysiology 05/19/24 documented as of this encounter
--- OUTSIDE RECORDS SUMMARY | 2025-05-24 17:06 | XMS_ITS | Encounter Summary ---
Author Organization [employer] ([place], [place], [place], [place]) Address [address] [place] [address] Care Team Providers Care Lead Investigator Name Role Phone Alfred Cantu MD Primary Care Provider [phone] Lyndsey Key MD Unavailable Vik Corcoran MD Unavailable Encounter Details Date Type Department Care Team (Late st Contact Info) Description 10/27/2018 Transcribed Document [facility] [place] [facility] [place] [address] ProviderRashard MD [address] [place] [address] Social History Tobacco Use Types Packs/Day [...] 10/27/2018 18:49 EDT Electronically signed by Kavita [facility] Conversion Cider Maker Krzysztof at 11/28/2022 5:36 PM CDT documented in this encounter Plan of Treatment Upcoming Encounters Date Type Department Care Team (Late st Contact Info) Description 08/23/2025 12:45 PM EST Office Visit [facility] Electrophysiology [address] [place] [address] [place] [address] [place] [address] [address] [place] [address] documented as of this encounter Visit Diagnoses Not on filedocumented in this encounter Care Teams Lead Investigator Relationship Specialty Start Date End Date Alfred Cantu MD [address] [place] [address] PCP - General General Internal Medicine 08/29/22 Lyndsey Key MD 1401 [facility] [address] [address] Meat Washer Interventional Cardiology 08/29/22 [place] [address] [place] [address] [address] Meat Washer Electrophysiology 05/19/24 documented as of this encounter
--- OUTSIDE RECORDS SUMMARY | 2025-05-24 17:06 | XMS_ITS | Encounter Summary ---
Author Organization [employer] ([place], [place], [place], [place]) Address [address] [place] [address] Care Team Providers Care Audio/Visual Operator Name Role Phone Alfred Cantu MD Primary Care Provider [phone] Lyndsey Key MD Unavailable [phone] Vik Corcoran MD Unavailable Encounter Details Date Type Department Care Team (Late st Contact Info) Description 10/27/2018 Transcribed Document [facility] Family Medicine [address] [place] [address] ProviderRashard MD [address] [place] [address] Social History Tobacco Use Types Packs/Day [...] patient to discharge home with spouse, Braxton ([phone]) who will transport and assist as needed. Orders received for home health and for home oxygen, d/w spouse providers, [facility], referrals made, and portable O2 to be delivered to patient's room prior to discharge and HH to follow up to begin POC upon discharge. CM will continue to follow until discharge to finalize transfer arrangements. REGINA TERRY Social Worker - 10/27/2018 17:47 EDT Care Management Note Report : REGINA TERRY Cloth Printer Helper - 10/26/18 17:32:42 Continue to follow for discharge needs and arrangements, chart reviewed, admission day #6, on 2 liters O2/nebs, Bd=844, Cl=95, WBC=18.9, CXR=FINDINGS: The heart is stable in size. The lung rosario demonstrate no significant change in the right base atelectasis. There is no pneumothorax. The support devices are in good position. IMPRESSION: There has been no significant interval change; PT/CZ=856' with rwx, PO Prednison, EP completed wound check today on Bi-V-ICD site, plan at discharge (possible Friday10/27/18) is to return home with spouse, Braxton, who will transport and assist with care. HH choice at discharge is [facility], once HH orders for RN/PT/OT in place will make referral and finalize arrangements. Will also watch for patient's room air level on day of discharge in case home oxygen is needed. Will continue to follow. REGINA TERRY Cloth Printer Helper - 10/23/18 17:17:58 Continue to follow for discharge needs and arrangements, chart reviewed, admission day #3, transfer from SICU, currently on 2 liters O2/nebs, Ff=781, Cl=88, Mg=2.5, WBC=18.3, CXR=pending, on IV Solumedrol [...] 13:09:33 readmit risk: moderate 57. transfer from [facility]. acute excerbation systolic heart failure. ef 25-30%. severe mitral regurg. severe nicm. CAP. for biv icd today. bipap 50%/02 4-6L nc. zithromax po. zosyn iv. ca gluconate iv x 2. kcl 20meq x 1. na phos iv x 1. PT consult. spoke with Jasmin Barbara. explained role of case management. pt resides in [facility]. she is adl independent. drives car. has cane, walker & cpap provided by [employer] no current home health or previous rehab stays. discussed dc planning rehab vs home health depending on progress. pt has medicare primary. she advises she has [employer] insurance. notified Aubrie, pt advocate for inclusion in records. spoke with bedside RNMagda. Documentation Status Complete : Yes REGINA TERRY Social Worker - 10/27/2018 17:26 EDT Discharge Planning Details Discharge Home : Home, Home health (related) Home Caregiver Name/Relationship : Braxton Jimenez spouse [phone] Discharge Home Care Needs : Occupational therapy, Physical Therapy, [facility]DC care Discharge Placement Needs : Home Persons [...] Yes Patient/Family Notified : Braxton Jimenez spouse [phone] REGINA TERRY Social Worker - 10/27/2018 17:47 [...] Office Visit [facility] Electrophysiology [address] [place] [phone] [place] [address] [place] [address] [address] [place] [address] documented as of this encounter Visit Diagnoses Not on filedocumented in this encounter Care Teams Audio/Visual Operator Relationship Specialty Start Date End Date Alfred Cantu MD [address] [place] [address] [place] [address] PCP - General General Internal Medicine 08/29/22 Lyndsey Key MD [address] [place] [address] [address] Bearing Machine Operator Interventional Cardiology 08/29/22 Vik Corcoran MD [address] [place] [address] [address] Bearing Machine Operator Electrophysiology 05/19/24 documented as of this encounter
--- OUTSIDE RECORDS SUMMARY | 2025-05-24 17:06 | XMS_ITS | Encounter Summary ---
Author Organization [employer] ([place], [place], [place], [place]) Address [address] [place] [address] Care Team Providers Care Warp Knit Operator Name Role Phone Alfred Cantu MD Primary Care Provider [phone] Lyndsey Key MD Unavailable [phone] Vik Corcoran MD Unavailable Encounter Details Date Type Department Care Team (Late st Contact Info) Description 10/26/2018 Transcribed Document [facility] Family [place] [facility] [place] [address] ProviderRashard MD [address] [place] [address] Social History Tobacco Use Types Packs/Day [...] 1200 mg= 2 Tab, Oral, BID nystatin, [id number] Units= 10 mL, Swish and Swallow , [...] (Current Encounter/Past 24 Hours) WBC 18.9 K/uL SC 10/26/2018 06:39 Hct 43.7 % 10/26/2018 06:39 Hgb 13.3 g/dL 10/26/2018 06:39 Platelet Count 170 K/uL 10/26/2018 06:39 CMP Results (Current Encounter/Past 24 Hours) eGFR NonAfrican 54 mL/min/1.73m2 LOW 10/26/2018 06:49 eGFR >60 mL/min/1.73m2 10/26/2018 06:49 Creatinine Level 1.00 mg/dL 10/26/2018 06:49 Bun/Creatinine 36.0 SC 10/26/2018 06:49 Sodium Level 129 mmol/L LOW 10/26/2018 06:49 Potassium Level 4.6 mmol/L 10/26/2018 06:49 Chloride Level 95 mmol/L LOW 10/26/2018 06:49 Carbon Dioxide Level 24 mmol/L 10/26/2018 06:49 Anion Gap 15 10/26/2018 06:49 Blood Urea Nitrogen 36 mg/dL SC 10/26/2018 06:49 Glucose Level 105 mg/dL 10/26/2018 06:49 Calcium Level 8.9 mg/dL 10/26/2018 06:49 Coagulation Results (Current Encounter/Past 24 Hours) No Coagulation Results Found (Past 24 Hours) Creatinine Clearance (Current Encounter/Past 24 Hours) Creatinine Level 1.00 mg/dL 10/26/2018 06:49 Bun/Creatinine 36.0 SC 10/26/2018 06:49 Estimated Creatinine Clearance 34.38 mL/Min 10/25/2018 13:14 Electronically signed by Kavita, [facility] Conversion Medical Aides Teacher Cerner at 11/28/2022 5:44 PM CDT documented in this encounter Plan of Treatment Upcoming Encounters Date Type Department Care Team (Late st Contact Info) Description 08/23/2025 12:45 PM EST Office Visit [facility] Electrophysiology [address] [place] [phone] [place] [address] [place] [address] [address] [place] [address] documented as of this encounter Visit Diagnoses Not on filedocumented in this encounter Care Teams Warp Knit Operator Relationship Specialty Start Date End Date Alfred Cantu MD [address] [place] [address] [place] [address] PCP - General General Internal Medicine 08/29/22 Lyndsey Key MD [address] [place] [address] [address] Livestock Buyer Interventional Cardiology 08/29/22 Vik Corcoran MD [address] [place] [address] [address] Livestock Buyer Electrophysiology 05/19/24 documented as of this encounter
--- OUTSIDE RECORDS SUMMARY | 2025-05-24 17:06 | XMS_ITS | Clinical Summary ---
Author Organization [facility] Address [address] [facility] [address] [place] [address] Phone Care Team Providers Care Desktop Analyst Name Role Phone Unavailable Unavailable Conditions or Problems No information available. Medications No information available. Medications Administered No information available. Allergies, Adverse Reactions, Alerts No information available. Results No information available. Plan of Care No information available. Procedures No information available. Vital Signs No information available. Immunizations No information available. Advance Directives No information available.
--- OUTSIDE RECORDS SUMMARY | 2025-05-24 17:06 | XMS_ITS | Encounter Summary ---
Author Organization [employer] ([place], [place], [place], [place]) Address [address] [place] [address] Care Team Providers Care Value Stream Coach Name Role Phone Alfred Cantu MD Primary Care Provider [phone] Lyndsey Key MD Unavailable [phone] Vik Corcoran MD Unavailable Encounter Details Date Type Department Care Team (Late st Contact Info) Description 10/24/2018 Transcribed Document [facility] Family [place] [facility] [place] [address] ProviderRashard MD [address] [place] [address] Social History Tobacco Use Types Packs/Day [...] : 10/20/2018 23:00 Assisted by, PT : robotics technician/aide Personal Devices : Personal Devices No [...] Status : Revised Comment : 10/24/18 LAURITA DAVIDSON, PT - 10/24/2018 16:08 EDT Tool Engineer Goals Ambulation LTG Grid Goal #1 Device [...] 10/24/2018 16:08 EDT Electronically signed by Kavita [facility] Conversion Patrol Conductor Cerner at 11/28/2022 5:42 PM CDT documented in this encounter Plan of Treatment Upcoming Encounters Date Type Department Care Team (Late st Contact Info) Description 08/23/2025 12:45 PM EST Office Visit [facility] Electrophysiology [address] [place] [address] [place] [address] [place] [address] [address] [place] [address] documented as of this encounter Visit Diagnoses Not on filedocumented in this encounter Care Teams Value Stream Coach Relationship Specialty Start Date End Date Alfred Cantu MD [address] [place] [address] [place] [address] PCP - General General Internal Medicine 08/29/22 [place] [address] [place] [address] [id number] Quantitative Research Analyst Interventional Cardiology 08/29/22 Vik Corcoran MD [address] [place] [address] [id number] Quantitative Research Analyst Electrophysiology 05/19/24 documented as of this encounter
--- OUTSIDE RECORDS SUMMARY | 2025-05-24 17:06 | XMS_ITS | Encounter Summary ---
Author Organization [employer] ([place], [place], [place], [place]) Address [address] [place] [address] Care Team Providers Care Napper Tender Name Role Phone Alfred Cantu MD Primary Care Provider [phone] Lyndsey Key MD Unavailable [phone] Vik Corcoran MD Unavailable Encounter Details Date Type Department Care Team (Late st Contact Info) Description 10/23/2018 Transcribed Document [facility] [place] [facility] [place] [address] ProviderRashard MD [address] [place] [address] Social History Tobacco Use Types Packs/Day Years [...] Rapid Response Team Call Comment : notified ELECTROSTATIC POWDER COATING TECHNICIAN no new orders Alba Smallwood Rn - 10/23/2018 5:09 EDT Electronically signed by Kavita, [facility] Conversion Paralegal Cerner at 11/28/2022 5:37 PM CDT documented in this encounter Plan of Treatment Upcoming Encounters Date Type Department Care Team (Late st Contact Info) Description 08/23/2025 12:45 PM EST Office Visit [facility] Electrophysiology [address] [place] [address] Vik Corcoran MD [address] [place] [address] [address] [place] [id number] documented as of this encounter Visit Diagnoses Not on filedocumented in this encounter Care Teams Napper Tender Relationship Specialty Start Date End Date Alfred Cantu MD [address] [place] [address] PCP - General General Internal Medicine 08/29/22 Lyndsey Key MD [address] [place] [address] [address] Visitor Information Assistant Interventional Cardiology 08/29/22 Vik Corcoran MD [address] [place] [address] [id number] Visitor Information Assistant Electrophysiology 05/19/24 documented as of this encounter
--- OUTSIDE RECORDS SUMMARY | 2025-05-24 17:06 | XMS_ITS | Encounter Summary ---
Author Organization [employer] ([place], [place], [place], [place]) Address [address] [place] [address] Care Team Providers Care Branch Lending Manager Name Role Phone Alfred Cantu MD Primary Care Provider [phone] Lyndsey Key MD Unavailable [phone] Vik Corcoran MD Unavailable Encounter Details Date Type Department Care Team (Late st Contact Info) Description 10/24/2018 Transcribed Document [facility] [place] [address] [place] [address] ProviderRashard MD [address] [place] [address] Social History Tobacco Use Types Packs/Day [...] EST Office Visit [facility] Electrophysiology [address] [place] [address] [place] [address] [place] [address] [address] [place] [id number] documented as of this encounter Visit Diagnoses Not on filedocumented in this encounter Care Teams Branch Lending Manager Relationship Specialty Start Date End Date Alfred Cantu MD [address] [place] [address] PCP - General General Internal Medicine 08/29/22 [place] [address] [place] [address] [address] [place] [address] Crew Clerk Interventional Cardiology 08/29/22 [place] [address] [place] [address] [address] [place], [place] [id number] Crew Clerk Electrophysiology 05/19/24 documented as of this encounter
--- OUTSIDE RECORDS SUMMARY | 2025-05-24 17:06 | XMS_ITS | Encounter Summary ---
Author Organization [employer] ([place], [place], [place], [place]) Address [address] [place] [address] Care Team Providers Care Casino Cage Supervisor Name Role Phone Alfred Cantu MD Primary Care Provider [phone] Lyndsey Key MD Unavailable [phone] Vik Corcoran MD Unavailable Encounter Details Date Type Department Care Team (Late st Contact Info) Description 10/26/2018 Transcribed Document [facility] [place] [facility] [place] [address] ProviderRashard MD [address] [place] [address] Social History Tobacco Use Types Packs/Day [...] 10/26/2018 20:55 EDT Electronically signed by Kavita [facility] Conversion Agency Manager Cerner at 11/28/2022 5:44 PM CDT documented in this encounter Plan of Treatment Upcoming Encounters Date Type Department Care Team (Late st Contact Info) Description 08/23/2025 12:45 PM EST Office Visit [facility] Electrophysiology [address] [place] [address] [place] [address] [place] [address] [address] [place] [address] documented as of this encounter Visit Diagnoses Not on filedocumented in this encounter Care Teams Casino Cage Supervisor Relationship Specialty Start Date End Date Alfred Cantu MD [address] [place] [address] PCP - General General Internal Medicine 08/29/22 Lyndsey Key MD [address] [place] [address] [address] Tax Associate Attorney Interventional Cardiology 08/29/22 Vik Corcoran MD [address] [place] [address] [address] Tax Associate Attorney Electrophysiology 05/19/24 documented as of this encounter
--- OUTSIDE RECORDS SUMMARY | 2025-05-24 17:06 | XMS_ITS | Encounter Summary ---
Author Organization [employer] ([place], [place], [place], [place]) Address [address] [place] [address] Care Team Providers Care Crisis Specialist Name Role Phone Alfred Cantu MD Primary Care Provider Lyndsey Key MD Unavailable [phone] Vik Corcoran MD Unavailable Encounter Details Date Type Department Care Team (Late st Contact Info) Description 10/23/2018 Transcribed Document [facility] [place] [facility] [place] [address] ProviderRashard MD [address] [place] [address] Social History Tobacco Use Types Packs/Day [...] no family present Lizz KOCH Hospitalist pager- [phone] Electronically signed by [facility], [facility] Conversion Ocean Clam Boat Captain Cerner at 11/28/2022 5:36 PM CDT documented in this encounter Plan of Treatment Upcoming Encounters Date Type Department Care Team (Late st Contact Info) Description 08/23/2025 12:45 PM EST Office Visit [facility] Electrophysiology [address] [place] [address] [place] [address] [place] [address] [address] [place], [place] [phone] documented as of this encounter Visit Diagnoses Not on filedocumented in this encounter Care Teams Crisis Specialist Relationship Specialty Start Date End Date Alfred Cantu MD [address] [place] [address] PCP - General General Internal Medicine 08/29/22 [place] [address] [place] [address] [address] [place] [address] Copy Room Technician Interventional Cardiology 08/29/22 [place] [address] [place] [address] [address] [place] [address] Copy Room Technician Electrophysiology 05/19/24 documented as of this encounter
--- OUTSIDE RECORDS SUMMARY | 2025-05-24 17:06 | XMS_ITS | Encounter Summary ---
Author Organization [employer] ([place], [place], [place], [place]) Address [address] [place] [address] Care Team Providers Care Brick Chimney Builder Name Role Phone Alfred Cantu MD Primary Care Provider [phone] Lyndsey Key MD Unavailable [phone] Vik Corcoran MD Unavailable Encounter Details Date Type Department Care Team (Late st Contact Info) Description 10/25/2018 Transcribed Document [facility] [place] [address] ProviderRashard MD [address] [place] [phone] Social History Tobacco Use Types Packs/Day Years [...] to Tobacco Cues : Refused Activities to [place] With Smoking Urges : Refused Basic Information About Quitting : Refused Tobacco Use Increases Chance of Relapse : Refused Withdrawal Symptoms Peak After Quitting : Refused Addictive Nature of Tobacco : Refused Marilyn James RN - 10/25/2018 18:54 EDT Tobacco Cessation Counseling Comment : not a smoker Marilyn James RN - 10/25/2018 18:54 EDT Electronically signed by Kavita [facility] Conversion Allocation Analyst Cerner at 11/28/2022 5:38 PM CDT documented in this encounter Plan of Treatment Upcoming Encounters Date Type Department Care Team (Late st Contact Info) Description 08/23/2025 12:45 PM EST Office Visit [facility] Electrophysiology [address] [place] [phone] Vik Corcoran MD [address] [facility] [address] [place] [address] documented as of this encounter Visit Diagnoses Not on filedocumented in this encounter Care Teams Brick Chimney Builder Relationship Specialty Start Date End Date Alfred Cantu MD [address] [place] [address] PCP - General General Internal Medicine 08/29/22 Lyndsey Key MD [address] [facility] [address] [address] Hand Ornament Maker Interventional Cardiology 08/29/22 [place] [address] [place] [address] [address] Hand Ornament Maker Electrophysiology 05/19/24 documented as of this encounter
--- OUTSIDE RECORDS SUMMARY | 2025-05-24 17:06 | XMS_ITS | Encounter Summary ---
Author Organization [employer] ([place], [place], [place], [place]) Address [address] [place] [address] Care Team Providers Care Solar Designer/Installer Name Role Phone Alfred Cantu MD Primary Care Provider [phone] Lyndsey Key MD Unavailable [phone] Vik Corcoran MD Unavailable Encounter Details Date Type Department Care Team (Late st Contact Info) Description 10/25/2018 Transcribed Document [facility] [place] [facility] [address] ProviderRashard MD [address] [place] [address] Social History Tobacco Use Types Packs/Day [...] 10/25/2018 20:09 EDT Electronically signed by [facility] Conversion Boiler Shop Supervisor Cerner at 11/28/2022 5:46 PM CDT documented in this encounter Plan of Treatment Upcoming Encounters Date Type Department Care Team (Late st Contact Info) Description 08/23/2025 12:45 PM EST Office Visit [facility] Electrophysiology [address] [place] [phone] [place] [address] [place] [address] [address] [place] [address] documented as of this encounter Visit Diagnoses Not on filedocumented in this encounter Care Teams Solar Designer/Installer Relationship Specialty Start Date End Date Alfred Cantu MD [address] [place] [address] PCP - General General Internal Medicine 08/29/22 Lyndsey Key MD [address] [place] [address] [address] Airline Radio Operator Interventional Cardiology 08/29/22 Vik Corcoran MD [address] [place] [address] [address] Airline Radio Operator Electrophysiology 05/19/24 documented as of this encounter
--- OUTSIDE RECORDS SUMMARY | 2025-05-24 17:06 | XMS_ITS | Encounter Summary ---
Author Organization [employer] ([place], [place], [place], [place]) Address [address] [place] [address] Care Team Providers Care Biological Sciences Instructor Name Role Phone Alfred Cantu MD Primary Care Provider [phone] Lyndsey Key MD Unavailable [phone] Vik Corcoran MD Unavailable Encounter Details Date Type Department Care Team (Late st Contact Info) Description 10/27/2018 Transcribed Document [facility] [place] [facility] [place] [address] ProviderRashard MD [address] [place] [address] Social History Tobacco Use Types Packs/Day [...] (OCT 21) Radiology Results (Last 48 hours) [id number] -- 10/20/2018 23:00 CR Chest 1 Vw [...] PM EST Office Visit [facility] Electrophysiology [address] [place] [address] [place] [address] [place] [address] [address] [place], [place] [id number] documented as of this encounter Visit Diagnoses Not on filedocumented in this encounter Care Teams Biological Sciences Instructor Relationship Specialty Start Date End Date Alfred Cantu MD [address] [place] [address] PCP - General General Internal Medicine 08/29/22 [place] [address] [place] [address] [address] [place] [address] Insole And Outsole Preparer Interventional Cardiology 08/29/22 [place] [address] [place] [address] [address] [place], [place] [id number] Insole And Outsole Preparer Electrophysiology 05/19/24 documented as of this encounter
--- OUTSIDE RECORDS SUMMARY | 2025-05-24 17:06 | XMS_ITS | Encounter Summary ---
Author Organization [employer] ([place], [place], [place], [place]) Address [address] [place] [address] Care Team Providers Care Functional Tester Name Role Phone Alfred Cantu MD Primary Care Provider [phone] Lyndsey Key MD Unavailable [phone] Vik Corcoran MD Unavailable Encounter Details Date Type Department Care Team (Late st Contact Info) Description 10/23/2018 Transcribed Document [facility] [place] [address] ProviderRashard MD [address] [place] [address] Social History Tobacco Use Types Packs/Day [...] 10/23/2018 20:02 EDT Electronically signed by Kavita [facility] Conversion Cell Plasterer Cerner at 11/28/2022 5:37 PM CDT documented in this encounter Plan of Treatment Upcoming Encounters Date Type Department Care Team (Late st Contact Info) Description 08/23/2025 12:45 PM EST Office Visit [facility] Electrophysiology [address] [place] [address] [place] [address] [place] [address] [address] [place] [address] documented as of this encounter Visit Diagnoses Not on filedocumented in this encounter Care Teams Functional Tester Relationship Specialty Start Date End Date Alfred Cantu MD [address] [place] [address] PCP - General General Internal Medicine 08/29/22 Lyndsey Key MD [address] [place] [address] [address] [place] [address] Satellite Dish Installer Interventional Cardiology 08/29/22 Vik Corcoran MD [address] [place] [address] [address] [place] [address] Satellite Dish Installer Electrophysiology 05/19/24 documented as of this encounter
--- OUTSIDE RECORDS SUMMARY | 2025-05-24 17:06 | XMS_ITS | Encounter Summary ---
Author Organization [employer] ([place], [place], [place], [place]) Address [address] [place] [address] Care Team Providers Care Music Executive Name Role Phone Alfred Cantu MD Primary Care Provider [phone] Lyndsey Key MD Unavailable [phone] Vik Corcoran MD Unavailable Encounter Details Date Type Department Care Team (Late st Contact Info) Description 10/25/2018 Transcribed Document [facility] [place] [facility] [place] [address] ProviderRashard MD [address] [place] [address] Social History Tobacco Use Types Packs/Day [...] : 10/20/2018 23:00 Assisted by, PT : on site wastewater systems technician/aide Personal Devices : Personal Devices No [...] LAURITA DAVIDSON, PT - 10/25/2018 12:57 EDT Probate Judge Goals Ambulation LTG Grid Goal #1 Device [...] - 10/25/2018 12:57 EDT Electronically signed by [facility] Conversion Real Estate Appraiser Supervisor Cerner at 11/28/2022 5:34 PM CDT documented in this encounter Plan of Treatment Upcoming Encounters Date Type Department Care Team (Late st Contact Info) Description 08/23/2025 12:45 PM EST Office Visit [facility] Electrophysiology [address] [place] [address] Vik Corcoran MD [address] [facility] [address] [place] [address] documented as of this encounter Visit Diagnoses Not on filedocumented in this encounter Care Teams Music Executive Relationship Specialty Start Date End Date Alfred Cantu MD [address] [place] [address] PCP - General General Internal Medicine 08/29/22 Lyndsey Key MD [address] [facility] [address] [place] [address] Microfiche Camera Operator Interventional Cardiology 08/29/22 Vik Corcoran MD [address] [facility] [address] [place], [place] [id number] Microfiche Camera Operator Electrophysiology 05/19/24 documented as of this encounter
--- OUTSIDE RECORDS SUMMARY | 2025-05-24 17:06 | XMS_ITS | Encounter Summary ---
Author Organization [employer] ([place], [place], [place], [place]) Address [address] [place] [address] Care Team Providers Care Cyber Legal Advisor Name Role Phone Alfred Cantu MD Primary Care Provider [phone] Lyndsey Key MD Unavailable Vik Corcoran MD Unavailable Encounter Details Date Type Department Care Team (Late st Contact Info) Description 10/24/2018 Transcribed Document [facility] [place] [facility] [place] [address] ProviderRashard MD [address] [place] [address] Social History Tobacco Use Types Packs/Day [...] 1200 mg= 2 Tab, Oral, BID nystatin, [id number] Units= 10 mL, Swish and Swallow , [...] Office Visit [facility] Electrophysiology [address] [place] [address] [place] [address] [place] [address] [address] [place] [address] documented as of this encounter Visit Diagnoses Not on filedocumented in this encounter Care Teams Cyber Legal Advisor Relationship Specialty Start Date End Date Alfred Cantu MD [address] [place] [address] PCP - General General Internal Medicine 08/29/22 [place] [address] [place] [address] [id number] Manager Reading Interventional Cardiology 08/29/22 [place] [address] [place] [address] [address] [place], [place] [id number] Manager Reading Electrophysiology 05/19/24 documented as of this encounter
--- OUTSIDE RECORDS SUMMARY | 2025-05-24 17:06 | XMS_ITS | Encounter Summary ---
Author Organization [employer] ([place], [place], [place], [place]) Address [address] [place] [address] Care Team Providers Care Bridal Gown Fitter Name Role Phone Alfred Cantu MD Primary Care Provider [phone] Lyndsey Key MD Unavailable [phone] Vik Corcoran MD Unavailable Encounter Details Date Type Department Care Team (Late st Contact Info) Description 10/25/2018 Transcribed Document [facility] [place] [address] ProviderRashard MD [address] [place] [address] Social History Tobacco Use Types Packs/Day [...] (OCT 21) Radiology Results (Last 48 hours) [id number] -- 10/20/2018 23:00 CR Chest 1 Vw [...] time spent: 29 min Electronically signed by [facility] Conversion Shift Mechanic Cerner at 11/28/2022 5:33 PM CDT documented in this encounter Plan of Treatment Upcoming Encounters Date Type Department Care Team (Late st Contact Info) Description 08/23/2025 12:45 PM EST Office Visit [facility] Electrophysiology [address] [place] [address] Vik Corcoran MD [address] [place] [address] [address] [place] [address] documented as of this encounter Visit Diagnoses Not on filedocumented in this encounter Care Teams Bridal Gown Fitter Relationship Specialty Start Date End Date Alfred Cantu MD [address] [place] [address] PCP - General General Internal Medicine 08/29/22 Lyndsey Key MD [address] [place] [address] [address] Investment Trader Interventional Cardiology 08/29/22 Vik Corcoran MD [address] [place] [address] [address] Investment Trader Electrophysiology 05/19/24 documented as of this encounter
--- OUTSIDE RECORDS SUMMARY | 2025-05-24 17:06 | XMS_ITS | Encounter Summary ---
Author Organization [employer] ([place], [place], [place], [place]) Address [address] [place] [address] Care Team Providers Care Sheet Metal Apprentice Name Role Phone Alfred Cantu MD Primary Care Provider [phone] Lyndsey Key MD Unavailable [phone] Vik Corcoran MD Unavailable Encounter Details Date Type Department Care Team (Late st Contact Info) Description 10/24/2018 Transcribed Document [facility] [place] [facility] [place] [address] ProviderRashard MD [address] [place] [address] Social History Tobacco Use Types Packs/Day [...] the worsening vascular congestion, [place] exam withdr [facility] bedside pacemaker doing okay mild to bleeding, [...] (OCT 21) Radiology Results (Last 48 hours) [id number] -- 10/20/2018 23:00 CR Chest 1 Vw [...] time spent: 32 min Electronically signed by [facility] Conversion Pruner Cerner at 11/28/2022 5:45 PM CDT documented in this encounter Plan of Treatment Upcoming Encounters Date Type Department Care Team (Late st Contact Info) Description 08/23/2025 12:45 PM EST Office Visit [facility] Electrophysiology [address] [place] [address] Vik Corcoran MD [address] [place] [address] [address] [place] [id number] documented as of this encounter Visit Diagnoses Not on filedocumented in this encounter Care Teams Sheet Metal Apprentice Relationship Specialty Start Date End Date Alfred Cantu MD [address] [place] [address] PCP - General General Internal Medicine 08/29/22 Lyndsey Key MD [address] [place] [address] [address] [place] [address] Display Manager Interventional Cardiology 08/29/22 Vik Corcoran MD [address] [place] [address] [address] [place], [place] [id number] Display Manager Electrophysiology 05/19/24 documented as of this encounter
--- OUTSIDE RECORDS SUMMARY | 2025-05-24 17:06 | XMS_ITS | Encounter Summary ---
Author Organization [employer] ([place], [place], [place], [place]) Address [address] [place] [address] Care Team Providers Care Risk Lead Name Role Phone Alfred Cantu MD Primary Care Provider [phone] Lyndsey Key MD Unavailable [phone] Vik Corcoran MD Unavailable Encounter Details Date Type Department Care Team (Late st Contact Info) Description 10/24/2018 Transcribed Document [facility] [place] [facility] [place] [address] ProviderRashard MD [address] [place] [address] Social History Tobacco Use Types Packs/Day [...] Rashard ProviderMD - 10/24/2018 2:00 AM CDT Director Hardware Details Entered On: 10/24/2018 0:24 EDT Performed [...] - 10/24/2018 0:24 EDT Electronically signed by [facility] Conversion Behavioral Services Tech Cerner at 11/28/2022 5:35 PM CDT documented in this encounter Plan of Treatment Upcoming Encounters Date Type Department Care Team (Late st Contact Info) Description 08/23/2025 12:45 PM EST Office Visit [facility] Electrophysiology [address] [place] [address] Vik Corcoran MD [address] [place] [address] [address] [place] [address] documented as of this encounter Visit Diagnoses Not on filedocumented in this encounter Care Teams Risk Lead Relationship Specialty Start Date End Date Alfred Cantu MD [address] [place] [address] PCP - General General Internal Medicine 08/29/22 Lyndsey Key MD [address] [place] [address] [address] Conservation Enforcement Officer Interventional Cardiology 08/29/22 Vik Corcoran MD [address] [place] [address] [address] Conservation Enforcement Officer Electrophysiology 05/19/24 documented as of this encounter
--- OUTSIDE RECORDS SUMMARY | 2025-05-24 17:06 | XMS_ITS | Clinical Summary ---
Author Organization [employer] ([place], [place], [place], [place]) Address [address] [place] [address] Care Team Providers Care Flotation Operator Name Role Phone Alfred Cantu MD Primary Care Provider [phone] Lyndsey Key MD Unavailable [phone] Vik Corcoran MD Unavailable Allergies Active Allergy Reactions [...] Description 05/19/2025 3:00 AM EDT Clinical Support [facility] Electrophysiology [address] [place] [address] Vik Corcoran MD Encounter for adjustment or management of cardiac device (Primary Dx); NICM (nonischemic cardiomyopathy); Chronic systolic congestive heart failure (HCC); AICD (automatic cardioverter/defibrilla tor) present 05/18/2025 3:00 AM EDT Clinical Support [facility] Electrophysiology [address] [place] [address] Vik Corcoran MD Encounter for adjustment or management of cardiac device (Primary Dx); A-fib; parosyxmal; NICM (nonischemic cardiomyopathy); Chronic systolic congestive heart failure (HCC); AICD (automatic cardioverter/defibrilla tor) present 04/18/2025 3:00 AM EDT Clinical Support [facility] Electrophysiology [address] [place] [phone] Vik Corcoran MD Encounter for adjustment or management of cardiac device (Primary Dx); NICM (nonischemic cardiomyopathy); Chronic systolic congestive heart failure (HCC); AICD (automatic cardioverter/defibrilla tor) present 03/17/2025 10:36 AM EDT - 03/17/2025 11:59 PM EDT Hospital Encounter [facility] CT Imaging [address] [place] [address] Julisa Abbott, ILAN Postlaminectomy syndrome, lumbar region Discharge Disposition: Home or Self Care 03/17/2025 7:48 AM EDT - 03/17/2025 10:35 AM EDT Hospital Encounter [facility] CT Imaging [address] [place] [address] Julisa Abbott, ILAN Postlaminectomy syndrome Discharge Disposition: Home or Self Care 03/17/2025 7:48 AM EDT - 03/17/2025 10:35 AM EDT Hospital Encounter [facility] Diagnostic Imaging [address] [place] [address] Julisa Abbott, ILAN Postlaminectomy syndrome Discharge Disposition: Home or Self Care 03/17/2025 3:00 AM EDT Clinical Support [facility] Electrophysiology [address] [place] [phone] Vik Corcoran MD Encounter for adjustment or management of cardiac device (Primary Dx); A-fib; parosyxmal; NICM (nonischemic cardiomyopathy); Chronic systolic congestive heart failure (HCC); AICD (automatic cardioverter/defibrilla tor) present 03/17/2025 Travel 03/10/2025 Outside Orders [facility] Central Scheduling [address] [place] [phone] Julisa Abbott PA Postlaminectomy syndrome (Primary Dx) 03/10/2025 Outside Orders [facility] Scheduling [address] [place] [address] Julisa Abbott PA Postlaminectomy syndrome (Primary Dx) from Last 3 Months Family History Medical History Relation Name Comments Cancer Father Leukemia Relation Name Status Comments Father Social History Tobacco Use Types Packs/Day Years Used Date Smoking Tobacco: Never Smokeless Tobacco: Never Tobacco Cessation:Counseling Given: Not Answered Alcohol Use Standard Drinks/Week Comments Never 0 (1 standard drink = 0.6 oz pur e alcohol) Family and Community Support Answer Sebasitan e Recorded Help with Day to Day Activities Not on file 08/29/2023 Feeling Lonely or Isolated Not on file 08/29 Educational Attainment Answer Date Ezra rded Speak language other than Mauritian at home Not on file 08/29/2023 Want [...] Visit [facility] Electrophysiology [address] [place] [address] Vik Corcoran MD [address] [place] [address] [address] [place] [address] Health Maintenance Due Date Last Done Comments DXA SCAN 1942 Depression Screening (12+) 1954 DTAP/TDAP/TD VACCINES (1 - Tdap) 1961 Shingles Vaccine (Zoster) (1 of 2) 1992 Medicare Initial AWV G0438 08/12/2008 Respiratory Syncytial Virus (RSV) Adult or (1 - 1-dose 75+ series) 2017 Falls Risk Screening 08/11/2024 COVID-19 VACCINE (3 - 2024- season) 04/11/202511/2020, 09/14/2020 Influenza Vaccine (#1) 2025 Tobacco Cessation Counseling and Screening (12+) 03/17/2026 03/17/2025 Pneumococcal 50+ years Completed 8, 08/11/2012, 08/11/2010 Medical Devices Implanted Type Area Claims Counsel Device Identifier Shelf Expiration Date Model / Serial / Lot Icd-10/23/2018 Implanted:2018 by Esteban Castillo MD (Quantity not on file) ICD MEDTRON[employer] CLARIA QUAD / [id number] / Procedures Procedure Name Priority Date/Time Associated [...] dictated by Figueroa Jasso MD Julisa TALAVERA IMVivian CT ORDERABLES Final Result * CT spine [...] dictated by Figueroa Jasso MD Julisa TALAVERA G CT ORDERABLES Final Result * [place] myelogram [...] back pain. ATTENDING PHYSICIAN: Dr. Yanez. PHYSICIAN DISPATCH ASSOCIATE: Tabatha Merritt PA-C PROCEDURE: Informed consent was [...] back pain. ATTENDING PHYSICIAN: Dr. Yanez. PHYSICIAN DISPATCH ASSOCIATE: Tabatha Merritt PA-C PROCEDURE: Informed consent was [...] Yanez. Transcribed by Tabatha Merritt PA-C. Julisa TALAVERA IMVivian FLUOROSCOPY ORDERABLES Final Result from Last 3 Months Insurance MEDICARE PART A B AETNA SR SUPP Care Teams Flotation Operator Relationship Specialty Start Date End Date Alfred Cantu MD [address] [place] [address] [place] [address] PCP - General General Internal Medicine 08/29/22 Lyndsey Key MD [address] [facility] [address] [place], [place] [id number] Rock Contractor Interventional Cardiology 08/29/22 Vik Corcoran MD [address] [facility] [address] [place] [address] Rock Contractor Electrophysiology 05/19/24
--- OUTSIDE RECORDS SUMMARY | 2025-05-24 17:06 | XMS_ITS | Continuity of Care Document ---
Author Organization [facility], PAIN MEDICINE [address] Address [address] [place] [address] Assessment Encounter Date Assessment Date Assessment LastModified [...] permanent implant after follow-up on Friday. That professional healthcare representative is present today for programming [email or web address] Not available 03/30/2025 15:41:15 Plan of Treatment Reminders Order Date Submit Date Provider Last Modified By Organization Details Last Modified Time Details Appointments RECHEC K r 2024 01:30P Neeraj FUENTES MD Not available Not available Not [...] r spine No observ ation record ed. mwilondja [facility] Sched[facility] [address] [place], [address], 03/22/2025 09:42:43 03/17/20 25 03/17/2025 CT, myelo gram, thora cic spine No observ ation record ed. mwilondja [facility] Sched[facility] [address] [place], [address], 03/22/2025 09:42:29 Result Notes None recorded. Problems No Known Problems Procedures Surgical History Date Name Laterality Status Provider Name and Address Organization Details Recorded Time 04/15/20 25 Lumbar Epidural Steroid Injection - Ean completed MURALI TRAMMELL MD [facility] [place], [address], [facility] 04/15/2025 15:49:19 03/28/20 25 SCS Trial - Ean completed MURALI TRAMMELL MD [address] [place] [address] [place], [address], [facility] 03/28/2025 14:58:49 09/17/19 25 Lumbar Epidural Steroid Injection - Ean completed MURALI TRAMMELL MD [facility] [place], [address], [facility] 09/17/2024 14:53:42 07/01/20 24 Sacroiliac Joint Injection - Ean completed MURALI TRAMMELL MD [facility] [place], [address], [facility] 07/01/2024 12:32:17 02/17/20 24 Lumbar RFA Bilateral - Ean completed [facility] [place], [address], [facility] 02/17/2024 13:22:27 02/03/20 24 Lumbar MBB bilateral 2 level - Ean completed MURALI TRAMMELL MD [facility] [place], [address], [facility] 02/03/2024 16:09:45 01/26/20 24 Lumbar MBB bilateral 2 level - Ean completed MURALI TRAMMELL MD [facility] [place], [address], [facility] 01/26/2024 14:50:15 08/11/19 19 procedure on heart completed Graciela Clark [facility] 12/26/2023 10:35:46 cholecystectomy completed Gracielanikita Clark [facility] 12/26/2023 10:36:02 Appendectomy completed [facility] 12/26/2023 10:36:17 Imaging Results None recorded. Procedure Notes None recorded. Medical Equipment None Reported. Allergies Allergen ID Allergen Name Allergen Category Reaction Reaction Severity Criticality Documentation Date Start Date Code Code System Note Provider Name and Address Organization Details Recorded Time 576190 Substance with sulfonami de structure and antibacte rial mechanism of action (substanc e) medicatio n Not available Not available Not available 12/26/2023 74163 8003 SNOMED [facility] 10:27:37 674487 latex environme nt,medica tion itching Not available Not available 06/28/2024 49102 91 RxNorm Burni ng and itchi ng Meena Jefferson [facility] 14:01:35 Medications Name Sig Start Date Stop [...] 97 % 97 % 128/82 mm[Hg] Graciela Eduardo [facility] 5 14:54:54 Social History Question Answer Notes LastModified by Basha Details LastModified Time Tobacco Smoking Status Never Smoker Graciela Eduardo [facility] 12/26/2023 10:35:11 What Was The Date Of Your Most Recent Tobacco Screening? 04/27/2025 [email or web address] Information not available 04/27/2025 What Is Your Relationship Status? [email or web address] Information not available 12/26/2023 Has Tobacco Cessation Counseling Been Provided? No Information not available 12/26/2023 Sex: Unknown Functional Status Question Answer Note LastModified by Basha Details LastModified Time Do you use any illicit or recreational drugs? No [email or web address] Information not available 12/26/2023 Do you or have you ever used any other forms of tobacco or nicotine? No [email or web address] Information not available 12/26/2023 What is your level of alcohol consumption? None [email or web address] Information not available 12/26/2023 Are you currently employed? No [email or web address] Information not available 12/26/2023 Mental Status None recorded. Family History Relationship Description Onset Age of this Age Resolved Age Notes LastModified by Organization Details LastModified Time Sister Family history of malignant neoplasm [email or web address] Not available 12/25 10:34:59 Medical History Condition Response Heart Problems Y Bleeding Disorder N Arthritis Y Hearing Loss Y Kidney Stones N Blood Transfusion N Blood Clot N Colon/Rectal Disorders N Cancer N Stroke N COPD N Asthma Y Blood Thinners N Sleep Apnea Y Thyroid Disorder N High Cholesterol Y Liver Disease N Heart Attack ([place]) Headaches N Hypertension Y Osteoporosis N Kidney Disease N Gynecological HistoryNo gynecological history recorded. Obstetrics History GPAL:G 0 P 0 0 0 0 Past Encounters Encounter ID Performer Location Encounter Start Date Encounter Closed Date Diagnosis/Indication Diagnosis SNOMED-CT Code Diagnosis ICD10 Code Diagnosis IMO Codes Diagnosis Note [id number] MURALI TRAMMELL MD [facility] OF SERV[facility] PROFESSIO NAL CHARGES [address] [facility], [address] [place] [address] 03/28/2025 12:13:45 03/28/2025 16:28:25 Lumbar radiculopathy 603419448 M54.16 [id number] DANDRE KHAN PA-C PAIN MEDICINE [address] [place] [address] 03/30/2025 14:34:32 03/30/2025 16:17:57 Lumbar radiculopathy [id number] M54.16 09243 Health Concerns Section Related Observation LastModified by Organization Detai ls LastModified Time None Recorded Concern Status LastModified by Organization Details LastModified Time None Recorded Payers Encounter Date Sequence Insurance Name Policy Number Policy Fritz Covered Member ID Fritz Member ID Guarantor Name 03/30/2025 1 [place] Kathy Jimenez [id number] Kathy Jimenez 03/30/2025 2 AETNA (MEDICARE SUPPLEMENT) Kathy Jimenez [id number] Kathy Jimenez Notes Date Note Type Note Provider Name and Address Organization Details Recorded Time 03/30/20 text/htm l End of SCS TrialReported by PatientHPIFor symptoms, [...] around SCS site. DANDRE KHAN PA-C [address] [place], [address], [facility] 03/30/2025 15:41:31 OBGyn Episode No OBEpisode recorded.
--- OUTSIDE RECORDS SUMMARY | 2025-05-24 17:06 | XMS_ITS | Encounter Summary ---
Author Organization [employer] ([place], [place], [place], [place]) Address [address] [place] [address] Care Team Providers Care Military Aircraft Designer Name Role Phone Alfred Cantu MD Primary Care Provider [phone] Lyndsey Key MD Unavailable [phone] Vik Corcoran MD Unavailable Encounter Details Date Type Department Care Team (Late st Contact Info) Description 10/23/2018 Transcribed Document [facility] Family Medicine [address] [place] [address] ProviderRashard MD [address] [place] [address] Social History Tobacco Use Types Packs/Day [...] - 10/23/2018 11:36 EDT Electronically signed by [facility], [facility] Conversion Hand Cooper Helper Cerner at 11/28/2022 5:41 PM CDT documented in this encounter Plan of Treatment Upcoming Encounters Date Type Department Care Team (Late st Contact Info) Description 08/23/2025 12:45 PM EST Office Visit [facility] Electrophysiology [address] [place] [address] Vik Corcoran MD [address] [place] [address] [address] [place] [address] documented as of this encounter Visit Diagnoses Not on filedocumented in this encounter Care Teams Military Aircraft Designer Relationship Specialty Start Date End Date Alfred Cantu MD [address] [place] [address] PCP - General General Internal Medicine 08/29/22 Lyndsey Key MD [address] [place] [address] [address] Office Clinician Interventional Cardiology 08/29/22 Vik Corcoran MD [address] [place] [address] [address] Office Clinician Electrophysiology 05/19/24 documented as of this encounter
--- OUTSIDE RECORDS SUMMARY | 2025-05-24 17:06 | XMS_ITS | Encounter Summary ---
Author Organization [employer] ([place], [place], [place], [place]) Address [address] [place] [address] Care Team Providers Care Rn Lvn Name Role Phone Alfred Cantu MD Primary Care Provider [phone] Lyndsey Key MD Unavailable [phone] Vik Corcoran MD Unavailable Encounter Details Date Type Department Care Team (Late st Contact Info) Description 10/27/2018 Transcribed Document [facility] Family [place] [address] ProviderRashard MD [address] [place] [address] Social History Tobacco Use Types Packs/Day [...] 10/27/2018 5:17 EDT Electronically signed by Kavita [facility] Conversion Refining Engineer Cerner at 11/28/2022 5:41 PM CDT documented in this encounter Plan of Treatment Upcoming Encounters Date Type Department Care Team (Late st Contact Info) Description 08/23/2025 12:45 PM EST Office Visit [facility] Electrophysiology [address] [place] [address] [place] [address] [place] [address] [address] [place] [address] documented as of this encounter Visit Diagnoses Not on filedocumented in this encounter Care Teams Rn Lvn Relationship Specialty Start Date End Date Alfred Cantu MD [address] [place] [address] PCP - General General Internal Medicine 08/29/22 [place] [address] [place] [address] [address] [place] [address] Fare Collector Interventional Cardiology 08/29/22 Vik Corcoran MD [address] [place] [address] [address] [place], [place] [phone] Fare Collector Electrophysiology 05/19/24 documented as of this encounter
--- OUTSIDE RECORDS SUMMARY | 2025-05-24 17:07 | XMS_ITS | Encounter Summary ---
Author Organization [employer] ([place], [place], [place], [place]) Address [address] [place] [address] Care Team Providers Care Parking Ramp Attendant Name Role Phone Alfred Cantu MD Primary Care Provider [phone] Lyndsey Key MD Unavailable [phone] Vik Corcoran MD Unavailable Encounter Details Date Type Department Care Team (Late st Contact Info) Description 08/21/2021 Transcribed Document [facility] Family [facility] [place] [address] ProviderRashard MD [address] [place] [address] Social History Tobacco Use Types Packs/Day Years Used Date Smoking Tobacco: Never Assessed Comments Unknown Sex and Gender Information Value Date Recorded Sex Assigned at Not on file Legal Sex Female 1:15 PM CDT Gender Identity Not on file Sexual Orientation Not on file documented as of this encounter Miscellaneous Notes * Cerner Conversion Note - Rashard ProviderMD - 08/21/2021 4:09 PM METAL FURRER Final Discharge Planning Entered On: 08/21/2021 16:09 EST Performed On: 08/21/2021 16:09 EST by [employer] Mkt Senior Group Manager-Utilization t Final Discharge Planning Discharge Arrangements : Patient Post-Acute Information Patient Name: KATHY CARTER Gender: Female : 44 Age: 80 Years No Post-Acute Placement(s) Listed No Post-Acute Service(s) Listed No Cur[place]pan Referral(s) Listed Discharge To Care Management : Home/Residential/Fpc or Self Care -01 CHU SALES Mkt Senior Group Manager-Utilization Mgt - 08/21/2021 16:09 EST Electronically signed by [facility], [facility] Conversion Track Broom Operator Cerner at 11/29/2022 12:46 PM CDT documented in this encounter Plan of Treatment Upcoming Encounters Date Type Department Care Team (Late st Contact Info) Description 08/23/2025 12:45 PM EST Office Visit [facility] Electrophysiology [address] [place] [phone] Vik Corcoran MD [address] [place] [address] [address] [place] [id number] documented as of this encounter Visit Diagnoses Not on filedocumented in this encounter Care Teams Parking Ramp Attendant Relationship Specialty Start Date End Date Aflred Cantu MD [address] [place] [address] PCP - General General Internal Medicine 08/29/22 Lyndsey Key MD [address] [place] [address] [id number] Environmental Conflict Manager Interventional Cardiology 08/29/22 Vik Corcoran MD [address] [place] [address] [address] Environmental Conflict Manager Electrophysiology 05/19/24 documented as of this encounter
--- OUTSIDE RECORDS SUMMARY | 2025-05-24 17:07 | XMS_ITS | Encounter Summary ---
Author Organization [employer] ([place], [place], [place], [place]) Address [address] [place] [address] Care Team Providers Care Agricultural Production Engineer Name Role Phone Alfred Cantu MD Primary Care Provider Lyndsey Key MD Unavailable [phone] Vik Corcoran MD Unavailable Encounter Details Date Type Department Care Team (Late st Contact Info) Description 10/22/2018 Transcribed Document [facility] [place] [address] ProviderRashard MD [address] [place] [address] Social History Tobacco Use Types Packs/Day [...] 10/22/2018 17:52 EDT Electronically signed by Kavita [facility] Conversion Graphic Production Artist Cerner at 11/28/2022 5:40 PM CDT documented in this encounter Plan of Treatment Upcoming Encounters Date Type Department Care Team (Late st Contact Info) Description 08/23/2025 12:45 PM EST Office Visit [facility] Electrophysiology [address] [place] [address] [place] [address] [place] [address] [address] [place], [place] [id number] documented as of this encounter Visit Diagnoses Not on filedocumented in this encounter Care Teams Agricultural Production Engineer Relationship Specialty Start Date End Date Alfred Cantu MD [address] [place] [address] PCP - General General Internal Medicine 08/29/22 [place] [address] [place] [address] [address] [place] [address] Search Manager Interventional Cardiology 08/29/22 [place] [address] [place] [address] [address] [place], [place] [phone] Search Manager Electrophysiology 05/19/24 documented as of this encounter
--- OUTSIDE RECORDS SUMMARY | 2025-05-24 17:07 | XMS_ITS | Continuity of Care Document ---
Author Organization [facility], PAIN MEDICINE [address] [place] [address] Assessment Encounter Date Assessment Date Assessment LastModified by Organization Details LastModified Time 04/01/2025 04/01/2025 This is an 84-year-old female seen today for follow-up evaluation of SCS trial. Unfortunately she noticed no significant improvement during the trial. The system was removed intact today. She will restart aspirin 24 hours later. She would like to proceed with an injection. Given her L4-5 stenosis recommend L3-4 IL ROCK. [email or web address] Not available 04/01/2025 10:17:59 Plan of Treatment Reminders Order Date Submit Date Provider Last Modified By Organization Details Last Modified Time Details Appointments RECHEC K r 2024 01:30P M RUTH FUENTES MD Not available Not available Not available Lab None record ed. Referral None record ed. Procedures epidur al steroi d inject ion, lumbar interl aminar (PROC) 2024 025 [email or web address] [facility] Professional Charges, [address] [facility], [place], [address], 04/05/2025 13:09:25 Surgeries None record ed. Imaging None record ed. Medication Orders None record ed. Patient TargetsNo targets recorded. Patient InstructionsNo instructions recorded. Reason for Referral None Reported. Results Created Date Observation Date Name Description Value Unit Range Abnormal Flag Note LastModifiedBy Organization Detail LastModifiedTime 03/17/2003/17/2025 CT, myelo gram, lumba r spine No observ ation record ed. mwilondja [facility] Central Scheduling [address], [place], [address], 03/22/2025 09:42:43 03/17/20 25 03/17/2025 CT, myelo gram, thora cic spine No observ ation record ed. [email or web address] [facility] [place] [facility] Scheduling [address], [place], [address], 03/22/2025 09:42:29 Result Notes None recorded. Problems No Known Problems Procedures Surgical History Date Name Laterality Status Provider Name and Address Organization Details Recorded Time 04/15/20 25 Lumbar Epidural Steroid Injection - Ean completed MURALI TRAMMELL MD [facility] [place], [address], [facility] 04/15/2025 15:49:19 03/28/20 25 SCS Trial - Ean completed MURALI TRAMMELL MD [address] [place] [address] [place], [address], [facility] 03/28/2025 14:58:49 09/17/19 25 Lumbar Epidural Steroid Injection - Ean completed MURALI TRAMMELL MD [facility] [place], [address], [facility] 09/17/2024 14:53:42 07/01/20 24 Sacroiliac Joint Injection - Ean completed MURALI TRAMMELL MD [facility] [place], [address], [facility] 07/01/2024 12:32:17 02/17/20 24 Lumbar RFA Bilateral - Ean completed MURALI TRAMMELL MD [address] [place] [address] [place], [address], [facility] 02/17/2024 13:22:27 02/03/20 24 Lumbar MBB bilateral 2 level - Ean completed MURALI TRAMMELL MD [facility] [place], [address], [facility] 02/03/2024 16:09:45 01/26/20 24 Lumbar MBB bilateral 2 level - Ean completed MURALI TRAMMELL MD [address] [place], [address], [facility] 01/26/2024 14:50:15 08/11/19 19 procedure on heart completed Graciela Clark [facility] 12/26/2023 10:35:46 cholecystectomy completed Gracielanikita Clark [facility] 12/26/2023 10:36:02 Appendectomy completed Graciela [facility] 12/26/2023 10:36:17 Imaging Results None recorded. Procedure Notes None recorded. Medical Equipment None Reported. Allergies Allergen ID Allergen Name Allergen Category Reaction Reaction Severity Criticality Documentation Date Start Date Code Code System Note Provider Name and Address Organization Details Recorded Time 553170 Substance with sulfonami de structure and antibacte rial mechanism of action (substanc e) medicatio n Not available Not available Not available 12/26/2023 56002 8003 SNOMED [facility] 10:27:37 381052 latex environme nt,medica tion itching Not available Not available 06/28/2024 06708 91 RxNorm Burni ng and itchi ng Meena [facility] 14:01:35 Medications Name Sig Start Date [...] /min 98 % 98 % 118/74 mm[Hg] Graciela Eduardo [facility] 5 09:47:40 Social History Question Answer Notes LastModified by [employer] Details LastModified Time Tobacco Smoking Status Never Smoker Graciela Eduardo [facility] 12/26/2023 10:35:11 What Was The Date Of Your Most Recent Tobacco Screening? 04/27/2025 [email or web address] Information not available 04/27/2025 What Is Your Relationship Status? [email or web address] Information not available 12/26/2023 Has Tobacco Cessation Counseling Been Provided? No [email or web address] Information not available 12/26/2023 Sex: Unknown Functional Status Question Answer Note LastModified by [employer] Details LastModified Time Do you use any illicit or recreational drugs? No [email or web address] Information not available 12/26/2023 Do you or have you ever used any other forms of tobacco or nicotine? No [email or web address] Information not available 12/26/2023 What is your level of alcohol consumption? None [email or web address] Information not available 12/26/2023 Are you currently employed? No [email or web address] Information not available 12/26/2023 Mental Status None recorded. Family History Relationship Description Onset Age of this Age Resolved Age Notes LastModified by Organization Details LastModified Time Sister Family history of malignant neoplasm [email or web address] Not available 12/25 10:34:59 Medical History Condition Response Heart Problems Y Bleeding Disorder N Hearing Loss Y Arthritis Y Kidney Stones N Blood Clot N Blood Transfusion N Colon/Rectal Disorders N Cancer N Stroke N COPD N Asthma Y Blood Thinners N Sleep Apnea Y Thyroid Disorder N High Cholesterol Y Liver Disease N Heart Attack ([place]) Headaches N Hypertension Y Osteoporosis N Kidney Disease N Gynecological HistoryNo gynecological history recorded. Obstetrics History GPAL:G 0 P 0 0 0 0 Past Encounters Encounter ID Performer Location Encounter Start Date Encounter Closed Date Diagnosis/Indication Diagnosis SNOMED-CT Code Diagnosis ICD10 Code Diagnosis IMO Codes Diagnosis Note [id number] MURALI TRAMMELL MD [facility] SERVICE PROFESSIO NAL CHARGES [address] [facility], [address] [place] [address] 1 03/28/2025 12:13:45 03/28/2025 16:28:25 Lumbar radiculopathy 497647559 M54.16 [id number] DANDRE KHAN PA-C PAIN MEDICINE [facility] [place] [address] 1 03/30/2025 14:34:32 03/30/2025 16:17:57 Lumbar radiculopathy 842623340 M54.16 [id number] MURALI TRAMMELL MD PAIN MEDICINE [facility] [place] [address] 1 04/01/2025 09:38:03 04/01/2025 11:49:09 Lumbar radiculopathy 060410320 M54.16 66136 Spinal ryan nosis of lumbar region 63386863 M48.062 [id number] Health Concerns Section Related Observation LastModified by Organization Detai ls LastModified Time None Recorded Concern Status LastModified by Organization Details LastModified Time None Recorded Payers Encounter Date Sequence Insurance Name Policy Number Policy Fritz Covered Member ID Fritz Member ID Guarantor Name 04/01/2025 1 [place] Kathy Jimenez [id number] Kathy Jimenez 04/01/2025 2 [employer] (MEDICARE SUPPLEMENT) Kathy Jimenez [id number] Kathy Jimenez Notes Date Note Type Note Provider Name and Address Organization Details Recorded Time 04/01/20 text/htm l End of SCS TrialReported by [...] itching around SCS site. MURALI TRAMMELL MD [address] [place] [address], [address], [facility] 04/01/2025 10:18:53 OBGyn Episode No OBEpisode recorded.
--- OUTSIDE RECORDS SUMMARY | 2025-05-24 17:07 | XMS_ITS | Encounter Summary ---
Author Organization [employer] ([place], [place], [place], [place]) Address [address] [place] [address] Care Team Providers Care Screw Machine Operator Name Role Phone Alfred Castillo MD Primary Care Provider [phone] Lynsdey Key MD Unavailable [phone] Vik Corcoran MD Unavailable Encounter Details Date Type Department Care Team (Late st Contact Info) Description 11/02/2018 Transcribed Document [facility] Family Medicine [facility] [place] [address] ProviderRashard MD [address] [place] [address] Social History Tobacco Use Types Packs/Day [...] Rashard ProviderMD - 11/02/2018 1:47 PM CDT [address] , [place] [address] Patient Copy Patient Information: Name: KATHY JIMENEZ Current Date: 11/02/2018 13:47:12 : 1940 Patient Address: [address] [place], [place] [address] [address] Patient Attending Physician: CARMELLA MEI MD-INT Primary Care Provider: PHY, NOT LISTED Primary Care Provider Phone: Discharge Diagnosis: Weight on Admission: 194 lb, 1 oz Weight at Discharge: 186 lb, 3 oz Comment: Follow-up Instructions: With: Address: When: KASH BUTTS [address] [facility], [address] [place] [address] Business (1) 11:00 AM Comments: Bring Ins Card, Photo ID, Ins Co-pay Bring discharge instructions with you Call for follow up appointment Return with blood work With: Address: When: CLARE LIVINGSTON [address] [facility], [address] [place], [place] [id number] Business (1) Within As needed Comments: Please call to make a follow-up appointment IF you are unable to get in with Dr. Castillo within 1 week. With: Address: When: ALFRED CASTILLO [address] [facility], [address] [place], [place] [id number] Business (1) Within 1 week Comments: The office is closed today until 2:00 PM this Friday. Please call to make a 1 week follow-up appointment and discuss 3-[address] scan to follow-up regarding pulmonary nodules. Also discuss antibiotic therapy. With: Address: When: NAZANIN NAVA [address] [place] [address]., [address] [place], [place] [address] Business (1) 9:00 AM Comments: You will [...] the dressing Medical Equipment for Home Use: [facility] [place] for bedside commode and nebulizer [phone] Home Health Services: [facility] [phone] Immunizations Documented During Stay: No Immunizations Found [...] Discharge Instructions (if any): Final Medication List: [facility], [place] [address], [phone] amiodarone (amiodarone 200 mg oral tablet) 2 [...] Follow these instructions at home: Medicines??? Take adbm-kzs-ukglocc and prescription medicines only as told by [...] and water are not available, use hand study abroad coordinator. ? Change your dressing as told by [...] radio towers. ??? Do notuse amateur ( [employer] ) radio equipment or electric ( arc [...] 12/08/2007 Document Revised: 04/21/2017 Document Reviewed: 03/06/2015 [employer] Interactive Patient Education ? 2017 [employer]. Smoking Hazards Smoking cigarettes is extremely [...] contain harmful chemicals. FOR MORE INFORMATION ??? [place] Lung Association: www.lung.org ??? [place] Cancer Society: www.cancer.org This information is not intended to replace advice given to you by your health care provider. Make sure you discuss any questions you have with your health care provider. Document Released: 09/04/2005 Document Revised: 11/18/2016 Document Reviewed: 01/17/2014 [employer] Interactive Patient Education ? 2017 [employer]. Heart-Healthy Eating Plan Many factors influence [...] foods can I eat? Grains Breads, including Montenegrin, white, serenity, wheat, raisin, rye, oatmeal, and Bahraini. Tortillas that are neither fried nor made with lard or trans fat. Low-fat rolls, including hotdog and hamburger buns and Zimbabwean muffins. Biscuits. Muffins. Waffles. Pancakes. Light popcorn. [...] cheese. Whole milk cheeses, including blue (henry), [place] Gary, Brie, Hayes, Nicaraguan, Havarti, Pitcairn Islander, cheddar, Camembert, and Austin. Whole or 2% milk that is liquid, [...] that has suet, meat fat, or shortening. [place] butter, hydrogenated oils, palm oil, coconut oil, [...] 05/06/2009 Document Revised: 02/14/2017 Document Reviewed: 01/19/2015 [employer] Interactive Patient Education ? 2017 [employer]. How to Take a Pulse Your [...] 02/01/2004 Document Revised: 02/14/2017 Document Reviewed: 12/31/2016 [employer] Interactive Patient Education ? 2017 [employer]. How to Take Your Blood Pressure [...] 09/22/2014 Elsevier Interactive Patient Education ? 2017 [employer]. Cardiomyopathy, Adult Cardiomyopathy is a long-term [...] Other treatments may include cardiac resynchronization therapy (PERSONNEL AND PAYROLL TECHNICIAN) or a left ventricular assist device (LVAD). [...] to manage stress. General instructions ??? Take aywe-afh-sjaovvw and prescription medicines only as told by [...] 10/10/2005 Document Revised: 03/25/2017 Document Reviewed: 01/27/2017 [employer] Interactive Patient Education ? 2017 [employer]. Medication Leaflets: carvedilol (PRABHJOT ve dil ole) [...] may report side effects to FDA at 5-729-MYS-8565. What other drugs will affect carvedilol? Other drugs may interact with carvedilol, including prescription and qpur-aah-iaqcdfg medicines, vitamins, and herbal products. Tell each [...] to ensure that the information provided by [employer] ('[employer]') is accurate, up-to-date, and complete, but no guarantee is made to that effect. Drug information contained herein may be time sensitive. [employer] information has been compiled for use by healthcare practitioners and consumers in the [place] and therefore [employer] does not warrant that uses outside of the [place] are appropriate, unless specifically indicated otherwise. Tk20s drug information does not endorse drugs, diagnose patients or recommend therapy. Tk20s drug information is an informational resource designed [...] effective or appropriate for any given patient. [employer] does not assume any responsibility for any aspect of healthcare administered with the aid of information [employer] provides. The information contained herein is not intended to cover all possible uses, directions, precautions, warnings, drug interactions, allergic reactions, or adverse effects. If you have questions about the drugs you are taking, check with your doctor, nurse or pharmacist. Copyright 4900-8645 [employer] Version: 15.. Revision Date: 08/30/2013. albuterol and [...] may report side effects to FDA at 9-564-MYJ-7463. What other drugs will affect albuterol and ipratropium inhalation? Tell your doctor about all your current medicines and any you start or stop using, especially: ? a diuretic or 'water pill'; ?? heart or blood pressure medicine; ?? other beta-blockers; or ?? an antidepressant. This list is not complete. Other drugs may interact with albuterol and ipratropium, including prescription and wetq-ibm-sdwaojy medicines, vitamins, and herbal products. Not all [...] to ensure that the information provided by [employer] ('[employer]') is accurate, up-to-date, and complete, but no guarantee is made to that effect. Drug information contained herein may be time sensitive. [employer] information has been compiled for use by healthcare practitioners and consumers in the [place] and therefore [employer] does not warrant that uses outside of the [place] are appropriate, unless specifically indicated otherwise. [employer]'s drug information does not endorse drugs, diagnose patients or recommend therapy. Tk20s drug information is an informational resource designed [...] effective or appropriate for any given patient. [employer] does not assume any responsibility for any aspect of healthcare administered with the aid of information [employer] provides. The information contained herein is not intended to cover all possible uses, directions, precautions, warnings, drug interactions, allergic reactions, or adverse effects. If you have questions about the drugs you are taking, check with your doctor, nurse or pharmacist. Copyright 6078-4586 [employer]. Version: 7.01. Revision Date: 04/04/2017. guaifenesin (gwye [...] [facility] Electrophysiology [address] [place] [address] Vik oCrcoran MD [address] [facility] [address] [place], [place] [id number] documented as of this encounter Visit Diagnoses Not on filedocumented in this encounter Care Teams Screw Machine Operator Relationship Specialty Start Date End Date Alfred Castillo MD [address] [place] [address] [place] [address] PCP - General General Internal Medicine 08/29/22 [place] [address] [place] [address] [id number] University Extension Specialist Interventional Cardiology 08/29/22 Vik Corcoran MD [address] [place] [address] [id number] University Extension Specialist Electrophysiology 05/19/24 documented as of this encounter
--- OUTSIDE RECORDS SUMMARY | 2025-05-24 17:07 | XMS_ITS | Encounter Summary ---
Author Organization [employer] ([place], [place], [place], [place]) Address [address] [place] [address] Care Team Providers Care Junior High School Teacher Name Role Phone Alfred Cantu MD Primary Care Provider Lyndsey Key MD Unavailable [phone] Vik Corcoran MD Unavailable Encounter Details Date Type Department Care Team (Late st Contact Info) Description 10/23/2018 Transcribed Document [facility] Family Medicine [address] [place] [address] ProviderRashard MD [address] [place] [address] Social History Tobacco Use Types Packs/Day [...] implant. 3. Ventricular defibrillation threshold testing Attending weblogic developer: Esteban Euceda MD,[facility] PROCEDURE INDICATION: Severe non-ischemic cardiomyopathy with left [...] sleeves and nonabsorbable sutures. 6. A BIV-CD (Ezetap MRI Quad, model number [id number], serial number [id number]) was attached to the leads. The whole system was placed in TYRX antibiotic envelope and implanted in the pocket. 7. Two-way communication was established between the device and its cnc machine programmer. The device was interrogated and its [...] number 5076, 45 cm, serial number [id number], P wave 2.0 mV, impedance 860 ohms, capture threshold 1.0 V at 0.5 msec. b. Right ventricular lead: Model number 6935, 62 cm, Sprint Quattro, serial number [id number], R-wave 12 mV, impedance 1320 ohms, capture threshold 0.9 V at 0.5 msec. c. Left ventricular lead: Performa S, model number 4598, 88 cm, serial number [id number], impedance 1166 ohms, capture threshold 1.0 V [...] hesitate to call us with any questions. Electronically signed by Israel Walls Conversion Continuous Improvement Specialist Cerner at 11/28/2022 5:29 PM CDT documented in this encounter Plan of Treatment Upcoming Encounters Date Type Department Care Team (Late st Contact Info) Description 08/23/2025 12:45 PM EST Office Visit [facility] Electrophysiology [address] [place] [address] [place] [address] [place] [address] [place] [id number] documented as of this encounter Visit Diagnoses Not on filedocumented in this encounter Care Teams Junior [employer] Teacher Relationship Specialty Start Date End Date Alfred Cantu MD [address] [place] [address] [place] [address] PCP - General General Internal Medicine 08/29/22 Lyndsey Key MD [address] [facility] [address] [place] [address] Automatic Grinder Operator Interventional Cardiology 08/29/22 Vik Corcoran MD [address] [facility] [place] [address] Automatic Grinder Operator Electrophysiology 05/19/24 documented as of this encounter
--- OUTSIDE RECORDS SUMMARY | 2025-05-24 17:07 | XMS_ITS | Encounter Summary ---
Author Organization [employer] ([place], [place], [place], [place]) Address [address] [place] [address] Care Team Providers Care Chemical Technician Name Role Phone Alfred Cantu MD Primary Care Provider [phone] Lyndsey Key MD Unavailable [phone] Vik Corcoran MD Unavailable Encounter Details Date Type Department Care Team (Late st Contact Info) Description 10/21/2018 Transcribed Document [facility] Family Medicine [facility] [place] [address] ProviderRashard MD [address] [place] [address] Social History Tobacco Use Types Packs/Day [...] (OCT 21) Radiology Results (Last 48 hours) [id number] -- 10/20/2018 23:00 CR Chest 1 Vw [...] sob, bi-V today Lizz KOCH Hospitalist pager- [phone] Electronically signed by Kavita [facility] Conversion Journeyman Electrician Cerner at 11/28/2022 5:44 PM CDT documented in this encounter Plan of Treatment Upcoming Encounters Date Type Department Care Team (Late st Contact Info) Description 08/23/2025 12:45 PM EST Office Visit [facility] Electrophysiology [address] [place] [address] Vik Corcoran MD [address] [facility] [address] [place] [address] documented as of this encounter Visit Diagnoses Not on filedocumented in this encounter Care Teams Chemical Technician Relationship Specialty Start Date End Date Alfred Cantu MD [address] [place] [address] [place] [address] PCP - General General Internal Medicine 08/29/22 Lyndsey Key MD [address] [facility] [address] [place], [place] [id number] Gin Inspector Interventional Cardiology 08/29/22 Vik Corcoran MD [address] [place] [address] Gin Inspector Electrophysiology 05/19/24 documented as of this encounter
--- OUTSIDE RECORDS SUMMARY | 2025-05-24 17:07 | XMS_ITS | Encounter Summary ---
Author Organization [employer] ([place], [place], [place], [place]) Address [address] [place] [address] Care Team Providers Care Inpatient Pharmacist Name Role Phone Alfred Cantu MD Primary Care Provider Lyndsey Key MD Unavailable [phone] Vik Corcoran MD Unavailable Encounter Details Date Type Department Care Team (Late st Contact Info) Description 08/16/2021 Transcribed Document [facility] Cardiology [address] [place] [address] [place] [address] [place] [address] [address] [place] [id number] Social History Tobacco Use Types Packs/Day Years [...] The patient was brought to the cardiac laborer tanbark and placed under general anesthesia, managed by the anesthesia staff physician. Preoperative and intraoperative PETER images were reviewed for device sizing. 2. Using ultrasound guidance, a 6-Colombian sheath was inserted in the right femoral vein. A 0.032 inch guidewire was advanced to the superior vena cava. The 6-Colombian sheath was removed and an 8-Colombian Cerna transseptal sheath and dilator were inserted [...] and the tissue tract dilated and a 14-Colombian sheath positioned in the femoral vein. 5. The Watchman delivery sheath was advanced over the wire and positioned at the ostium of the left upper pulmonary vein. Over the wire, a 5-Colombian pigtail catheter was advanced just distal to [...] using a 27 mm Watchman closure device. /[id number] Manuel Tam MD MWS/AQ / MWS / MODL /[id number] documented in this encounter Plan of Treatment Upcoming Encounters Date Type Department Care Team (Late st Contact Info) Description 08/23/2025 12:45 PM EST Office Visit [facility] Electrophysiology [address] [place] [address] Vik Corcoran MD [address] [place] [address] [place] [id number] documented as of this encounter Visit Diagnoses Not on filedocumented in this encounter Care Teams Inpatient Pharmacist Relationship Specialty Start Date End Date Alfred Cantu MD [address] [place] [address] [place] [address] PCP - General General Internal Medicine 08/29/22 Lyndsey Key MD [address] [place] [address] [address] [place], [place] [id number] Supervisor Customer Complaint Service Interventional Cardiology 08/29/22 Vik Corcoran MD [address] [place] [address] [address] [place] [address] Supervisor Customer Complaint Service Electrophysiology 05/19/24 documented as of this encounter
--- OUTSIDE RECORDS SUMMARY | 2025-05-24 17:07 | XMS_ITS | Encounter Summary ---
Author Organization [employer] ([place], [place], [place], [place]) Address [address] [place] [address] Care Team Providers Care Reference Library Assistant Name Role Phone Alfred Cantu MD Primary Care Provider [phone] Lyndsey Key MD Unavailable Vik Corcoran MD Unavailable Encounter Details Date Type Department Care Team (Late st Contact Info) Description 07/24/2021 Transcribed Document [facility] [facility] [place] [address] ProviderRashard MD [address] [place] [address] Social History Tobacco Use Types Packs/Day Years Used Date Smoking Tobacco: Never Assessed Comments Unknown Sex and Gender Information Value Date Recorded Sex Assigned at Not on file Legal Sex Female 1:15 PM CDT Gender Identity Not on file Sexual Orientation Not on file documented as of this encounter Miscellaneous Notes * Cerner Conversion Note - Historical ProviderMD - 07/24/2021 7:17 AM FLIGHT AGENT Pre Procedure Adult Entered On: 07/24/2021 7:22 EST Performed On: 07/24/2021 7:17 EST by DEVIN SAENZ RN Height and Weight, Clinical Dosing Height Source : Stated Height Entry Format : [place] Height, Feet : 5 ft(Converted to: 152 cm, 60 Inch) Height, Inches : 0 Inch(Converted to: 0 ft 0 Inch, 0.00 cm) Clinical Height : 152.4 cm Weight Source : Standing scale Weight Entry Format : [place] Clinical Dosing Weight : 86.36 kg Weight, Pounds : 190 lb Body Surface Area (BSA) : 1.83 m2 Body Mass Index : 37.2 kg/m2 ([place]) [place] Body Weight : 45 kg DEIVN SAENZ RN - 07/24/2021 7:17 EST Health [...] DEVIN SAENZ RN - 07/24/2021 7:17 EST [place] Suicide Severity Rating Scale (C-SSRS) CSSRS Past [...] Number : Emergency Contact #1 Relationship : [phone] Emergency Contact #2 : none Emergency Contact #2 Phone Number : none Emergency Contact #2 Relationship : none Primary Language : Liberian Communication Barrier : None Rural Sociologist Needed : No DEVIN SAENZ RN - [...] Scale Risk Level : 0-24 Low Risk [place] Fall Interventions : Adequate lighting, Assistive devices [...] - 07/24/2021 7:17 EST Electronically signed by [facility], [facility] Conversion Engineering Manager Cerner at 11/29/2022 12:45 PM CDT documented in this encounter Plan of Treatment Upcoming Encounters Date Type Department Care Team (Late st Contact Info) Description 08/23/2025 12:45 PM EST Office Visit [facility] Electrophysiology [address] [place] [address] Vik Corcoran MD [address] [facility] [address] [place] [address] documented as of this encounter Visit Diagnoses Not on filedocumented in this encounter Care Teams Reference Library Assistant Relationship Specialty Start Date End Date Alfred Cantu MD [address] [place] [facility] [address] [place] [address] PCP - General General Internal Medicine 08/29/22 Lyndsey Key MD [address] [facility] [address] [place], [place] [id number] Building Trades Teacher Interventional Cardiology 08/29/22 [place] [address] [place] [address] [address] Building Trades Teacher Electrophysiology 05/19/24 documented as of this encounter
--- OUTSIDE RECORDS SUMMARY | 2025-05-24 17:07 | XMS_ITS | Encounter Summary ---
Author Organization [employer] ([place], [place], [place], [place]) Address [address] [place] [address] Care Team Providers Care Microwave Radio Technician Name Role Phone Alfred Cantu MD Primary Care Provider [phone] Lyndsey Key MD Unavailable [phone] Vik Corcoran MD Unavailable Encounter Details Date Type Department Care Team (Late st Contact Info) Description 10/26/2018 Transcribed Document [facility] [place] [address] ProviderRashard MD [address] [place] [address] Social History Tobacco Use Types Packs/Day [...] EST Office Visit [facility] Electrophysiology [address] [place] [address] Vik Corcoran MD [address] [facility] [address] [place] [address] documented as of this encounter Visit Diagnoses Not on filedocumented in this encounter Care Teams Microwave Radio Technician Relationship Specialty Start Date End Date Alfred Cantu MD [address] [place] [address] [place] [address] PCP - General General Internal Medicine 08/29/22 Lyndsey Key MD [address] [facility] [address] [place] [address] Roller Gold Leaf Interventional Cardiology 08/29/22 Vik Corcoran MD [address] [facility] [address] [place] [address] Roller Gold Leaf Electrophysiology 05/19/24 documented as of this encounter
--- OUTSIDE RECORDS SUMMARY | 2025-05-24 17:07 | XMS_ITS | Encounter Summary ---
Author Organization [employer] ([place], [place], [place], [place]) Address [address] [place] [address] Care Team Providers Care Taker Off Drying Kiln Name Role Phone Alfred Cantu MD Primary Care Provider [phone] Lyndsey Key MD Unavailable [phone] Vik Corcoran MD Unavailable Encounter Details Date Type Department Care Team (Late st Contact Info) Description 10/23/2018 Transcribed Document [facility] [place] Family Medicine [facility] [place] [address] ProviderRashard MD [address] [place] [address] Social History Tobacco Use Types Packs/Day [...] Alba Smallwood Rn - 10/23/2018 4:46 EDT Electronically signed by Kavita [facility] Conversion Steward/Stewardess Economy Class Cerner at 11/28/2022 5:34 PM CDT documented in this encounter Plan of Treatment Upcoming Encounters Date Type Department Care Team (Late st Contact Info) Description 08/23/2025 12:45 PM EST Office Visit [facility] Electrophysiology [address] [place] [phone] [place] [address] [place] [address] [address] [place] [address] documented as of this encounter Visit Diagnoses Not on filedocumented in this encounter Care Teams Taker Off Drying Kiln Relationship Specialty Start Date End Date Alfred Cantu MD [address] [place] [address] [place] [address] PCP - General General Internal Medicine 08/29/22 [place] [address] [place] [address] [address] [place] [address] Smelter Liner Interventional Cardiology 08/29/22 [place] [address] [place] [address] [address] [place] [address] Smelter Liner Electrophysiology 05/19/24 documented as of this encounter
--- OUTSIDE RECORDS SUMMARY | 2025-05-24 17:07 | XMS_ITS | Encounter Summary ---
Author Organization [employer] ([place], [place], [place], [place]) Address [address] [place] [address] Care Team Providers Care Commercial Lines Account Assistant Name Role Phone Alfred Cantu MD Primary Care Provider [phone] Nivia Key MD Unavailable [phone] Vik Corcoran MD Unavailable Encounter Details Date Type Department Care Team (Late st Contact Info) Description 08/16/2021 Transcribed Document [facility] [place] [facility] [place] [address] ProviderRashard MD [address] [place] [address] Social History Tobacco Use Types Packs/Day Years Used Date Smoking Tobacco: Never Assessed Comments Unknown Sex and Gender Information Value Date Recorded Sex Assigned at Not on file Legal Sex Female 1:15 PM CDT Gender Identity Not on file Sexual Orientation Not on file documented as of this encounter Miscellaneous Notes * Cerner Conversion Note - Rashard ProviderMD - 08/16/2021 3:00 PM ESTATE ATTORNEY [facility] [place] [id number] KATHY CARTER :1940 Visit Time:08/16/2021 Your [...] Oral At Bedtime potassium chloride (Potassium Chloride (Xgs-Ureo-Owt M20) 20 mEq oral tablet, extended release) [...] these instructions at home: Medicines ??? Take ntah-gui-vtdggpj and prescription medicines only as told by [...] and water are not available, use hand bundle breaker. ? Change your dressing as told by [...] provider. Document Revised: 04/05/2021 Document Reviewed: 04/05/2021 [employer] Patient Education ?? 2020 [employer] Groin Site Care Refer to this [...] Document Reviewed: 08/30/2011 ExitCare?? Patient Information ??2014 [employer]. General Anesthesia, Adult, Care After This sheet [...] activities are safe for you. ??? Take njby-bjx-rdjfwxz and prescription medicines only as told by [...] Reviewed: 11/09/2020 Elsevier Patient Education ?? 2020 [employer]. Emergency Awareness and Preventative Care STROKE [...] Assistance with quitting is available by contacting 9-654-QFNKNOW. This is a free resource providing counseling, support, and referral. Or you may contact your personal physician. Purchasing Platform Suicide Prevention Lifeline: The National Suicide Prevention [...] range between ( 0.0 and 7.0 ) [place] #: 0.83 K/uL -- Normal range between ( 0.16 and 1.00 ) Eos #: 0.26 x10(3)/uL -- Normal range between ( 0.00 and 0.80 ) [place] %: 8.0 % -- Normal range between [...] was given the opportunity to ask questions. Patient/Tuckpointer Name: Patient/Tuckpointer Signature: Relationship to Patient: Clinician/Hospital Tuckpointer Signature: Date: documented in this encounter Plan of Treatment Upcoming Encounters Date Type Department Care Team (Late st Contact Info) Description 08/23/2025 12:45 PM EST Office Visit [facility] Electrophysiology [address] [place] [phone] Vik Corcoran MD [address] [place] [address] [address] [place] [address] documented as of this encounter Visit Diagnoses Not on filedocumented in this encounter Care Teams Commercial Lines Account Assistant Relationship Specialty Start Date End Date Alfred Cantu MD [address] [place] [address] [place] [address] PCP - General General Internal Medicine 08/29/22 Nivia Key MD [address] [place] [address] [address] Medical Lab Director Interventional Cardiology 08/29/22 Vik Corcoran MD [address] [place] [address] [address] [place] [address] Medical Lab Director Electrophysiology 05/19/24 documented as of this encounter
--- OUTSIDE RECORDS SUMMARY | 2025-05-24 17:07 | XMS_ITS | Encounter Summary ---
Author Organization [employer] ([place], [place], [place], [place]) Address [address] [place] [address] Care Team Providers Care Tipple Mechanic Name Role Phone Alfred Cantu MD Primary Care Provider [phone] Lyndsey Key MD Unavailable [phone] Vik Corcoran MD Unavailable Encounter Details Date Type Department Care Team (Late st Contact Info) Description 07/24/2021 Transcribed Document [facility] [place] Medicine [facility] [place] [address] ProviderRashard MD [address] [place] [address] Social History Tobacco Use Types Packs/Day Years Used Date Smoking Tobacco: Never Assessed Comments Unknown Sex and Gender Information Value Date Recorded Sex Assigned at Not on file Legal Sex Female 1:15 PM CDT Gender Identity Not on file Sexual Orientation Not on file documented as of this encounter Miscellaneous Notes * Cerner Conversion Note - Rashard ProviderMD - 07/24/2021 7:48 AM XM1 TANK DRIVER Nursing Discharge Summary Entered On: 07/24/2021 7:49 [...] 07/24/2021 7:48 EST Electronically signed by Kavita [facility] Conversion Custom Grinder Cerner at 11/29/2022 12:48 PM CDT documented in this encounter Plan of Treatment Upcoming Encounters Date Type Department Care Team (Late st Contact Info) Description 08/23/2025 12:45 PM EST Office Visit [facility] Electrophysiology [address] [place] [phone] Vik Corcoran MD [address] [place] [address] [address] [place] [address] documented as of this encounter Visit Diagnoses Not on filedocumented in this encounter Care Teams Tipple Mechanic Relationship Specialty Start Date End Date Alfred Cantu MD [address] [place] [address] PCP - General General Internal Medicine 08/29/22 Lyndsey Key MD [address] [place] [address] [address] [place] [address] Hair Rooting Machine Operator Interventional Cardiology 08/29/22 Vik Corcoran MD [address] [place] [address] [address] Hair Rooting Machine Operator Electrophysiology 05/19/24 documented as of this encounter
--- OUTSIDE RECORDS SUMMARY | 2025-05-24 17:07 | XMS_ITS | Continuity of Care Document ---
Author Organization [facility], [facility] PL[facility] OF SERVICE PROFESSIONAL CHARGES Address [address] [facility] [address] [place] [address] Assessment No assessment recorded. Plan of Treatment [...] r spine No observ ation record ed. [facility] Scheduling [address], [place], [address], 03/22/2025 09:42:43 03/17/2003/17/2025 CT, myelo gram, thora cic spine No observ ation record ed. [facility] [address], [place], [address], 03/22/2025 09:42:29 Result Notes None recorded. Problems No Known Problems Procedures Surgical History Date Name Laterality Status Provider Name and Address Organization Details Recorded Time 04/15/20 Lumbar Epidural Steroid Injection - Ean completed MURALI TRAMMELL MD [address] [place], [address], [facility] 04/15/2025 15:49:19 03/28/20 25 SCS Trial - Ena completed MURALI TRAMMELL MD [address] [place], [address], [facility] 03/28/2025 14:58:49 09/17/19 25 Lumbar Epidural Steroid Injection [place] [address] [place] [address], [phone], [facility] 09/17/2024 14:53:42 07/01/20 24 Sacroiliac Joint Injection - [place] [address] [place] [address], [phone], [facility] 07/01/2024 12:32:17 02/17/20 24 Lumbar RFA Bilateral - [place] [address] [place] [address], [phone], [facility] 02/17/2024 13:22:27 02/03/20 24 Lumbar MBB bilateral 2 level - [place] [address] [place] [address], [phone], [facility] 02/03/2024 16:09:45 01/26/20 24 Lumbar MBB bilateral 2 level - [place] [address] [place] [address], [phone], [facility] 01/26/2024 14:50:15 08/11/19 19 procedure on heart completed Graciela Eduardo [facility] 12/26/2023 10:35:46 cholecystectomy completed Graciela Eduardo [facility] 12/26/2023 10:36:02 Appendectomy completed Graciela Eduardo [facility] 12/26/2023 10:36:17 Imaging Results None recorded. Procedure Notes None recorded. Medical Equipment None Reported. Allergies Allergen ID Allergen Name Allergen Category Reaction Reaction Severity Criticality Documentation Date Start Date Code Code System Note Provider Name and Address Organization Details Recorded Time 148277 Substance with sulfonami de structure and antibacte rial mechanism of action (substanc e) medicatio n Not available Not available Not available 12/26/2023 09629 8003 SNOMED Graciela Clark [facility] 4 10:27:37 [id number] latex environme nt,medica tion itching Not available Not available 06/28/2024 67619 91 RxNorm Burni ng and itchi ng Meena Jefferson [facility] 4 14:01:35 Medications Name Sig Start Date [...] Social History Question Answer Notes LastModified by [employer] Details LastModified Time Tobacco Smoking Status Never Smoker Graciela Clark [facility] 12/26/2023 10:35:11 What Was The Date Of Your Most Recent Tobacco Screening? 04/27/2025 [email or web address] Information not available 04/27/2025 What Is Your Relationship Status? [email or web address] Information not available 12/26/2023 Has Tobacco Cessation Counseling Been Provided? No [email or web address] Information not available 12/26/2023 Sex: Unknown Functional Status Question Answer Note LastModified by [employer] Details LastModified Time Do you use any illicit or recreational drugs? No [email or web address] Information not available 12/26/2023 Do you or have you ever used any other forms of tobacco or nicotine? No [email or web address] Information not available 12/26/2023 What is your level of alcohol consumption? None [email or web address] Information not available 12/26/2023 Are you currently employed? No [email or web address] Information not available 12/26/2023 Mental Status None recorded. Family History Relationship Description Onset Age of this Age Resolved Age Notes LastModified by Organization Details LastModified Time Sister Family history of malignant neoplasm [email or web address] Not available 12/25 10:34:59 Medical History Condition Response Heart Problems Y Bleeding Disorder N Arthritis Y Hearing Loss Y Kidney Stones N Blood Transfusion N Blood Clot N Colon/Rectal Disorders N Cancer N Stroke N COPD N Asthma Y Blood Thinners N Sleep Apnea Y Thyroid Disorder N High Cholesterol Y Liver Disease N Heart Attack ([place]) Headaches N Hypertension Y Osteoporosis N Kidney Disease N Gynecological HistoryNo gynecological history recorded. Obstetrics History GPAL:G 0 P 0 0 0 0 Past Encounters Encounter ID Performer Location Encounter Start Date Encounter Closed Date Diagnosis/Indication Diagnosis SNOMED-CT Code Diagnosis ICD10 Code Diagnosis IMO Codes Diagnosis Note [id number] MURALI TRAMMELL MD [facility] PL[address] OF SERVICE PROFESSIO NAL CHARGES [address] [facility], [address] [place] [address] 03/28/2025 12:13:45 03/28/2025 16:28:25 Lumbar radiculopathy 039478434 M54.16 06773 Health Concerns Section Related Observation LastModified by Organization Detai ls LastModified Time None Recorded Concern Status LastModified by Organization Details LastModified Time None Recorded Payers Encounter Date Sequence Insurance Name Policy Number Policy Fritz Covered Member ID Fritz Member ID Guarantor Name 03/28/2025 1 [place] Kathy Jimenez [id number] Kathy Jimenez 03/28/2025 2 [employer] (MEDICARE SUPPLEMENT) Kathy Jimenez [id number] Kathy Jimenez OBGyn Episode No OBEpisode recorded.
--- OUTSIDE RECORDS SUMMARY | 2025-05-24 17:07 | XMS_ITS | Encounter Summary ---
Author Organization [employer] ([place], [place], [place], [place]) Address [address] [place] [address] Care Team Providers Care Cotton Tier Name Role Phone Alfred Cantu MD Primary Care Provider [phone] Lyndsey Key MD Unavailable [phone] Vik Corcoran MD Unavailable Encounter Details Date Type Department Care Team (Late st Contact Info) Description 10/22/2018 Transcribed Document [facility] [place] Family Medicine [address] [place] [address] ProviderRashard MD [address] [place] [place] [address] Social History Tobacco Use Types Packs/Day [...] 13:09:33 readmit risk: moderate 59. transfer from [facility]. acute excerbation systolic heart failure. ef 25-30%. severe mitral regurg. severe nicm. CAP. for biv icd today. bipap 50%/02 4-6L nc. zithromax po. zosyn iv. ca gluconate iv x 2. kcl 20meq x 1. na phos iv x 1. PT consult. spoke with Barbara. explained role of case management. pt resides in [facility]. she is adl independent. drives car. has cane, walker & cpap provided by Kim Wander (f. [employer]). no current home health or previous rehab stays. discussed dc planning rehab vs home health depending on progress. pt has medicare primary. she advises she has [email or web address] insurance. notified Aubrie, pt advocate for inclusion in records. spoke with bedside RNMagda. Documentation Status Complete : Yes CONNIE LIVE RN - 10/22/2018 13:28 EDT documented in this encounter Plan of Treatment Upcoming Encounters Date Type Department Care Team (Late st Contact Info) Description 08/23/2025 12:45 PM EST Office Visit [facility] Electrophysiology [address] [place] [address] Vik Corcoran MD [address] [facility] [address] [place] [address] documented as of this encounter Visit Diagnoses Not on filedocumented in this encounter Care Teams Cotton Tier Relationship Specialty Start Date End Date Alfred Cantu MD [address] [place] [address] PCP - General General Internal Medicine 08/29/22 Lyndsey Key MD [address] [facility] [address] [place] [address] Stonework Supervisor Interventional Cardiology 08/29/22 Vik Corcoran MD [address] [facility] [address] [place] [address] Stonework Supervisor Electrophysiology 05/19/24 documented as of this encounter
--- OUTSIDE RECORDS SUMMARY | 2025-05-24 17:07 | XMS_ITS | Encounter Summary ---
Author Organization [employer] ([place], [place], [place], [place]) Address [address] [place] [address] Care Team Providers Care Station Baggage Agent Name Role Phone Alfred Cantu MD Primary Care Provider [phone] Lyndsey Key MD Unavailable [phone] Vik Corcoran MD Unavailable Encounter Details Date Type Department Care Team (Late st Contact Info) Description 10/22/2018 Transcribed Document [facility] [place] [facility] [place] [address] ProviderRashard MD [address] [place] [address] Social History Tobacco Use Types Packs/Day [...] Plan/Goals Established w Patient : Yes GRUPO HSETER OTR/L - 10/28/2018 15:23 EDT Health Information Tech Goals, OT Grooming LTG Grid Goal #1 [...] the text rendition version of the form. [place] OT Charges OT Selfcare/Hm Mgmt Ea 15 Min : 2 GRUPO HESTER OTR/Sujey - 10/28/2018 15:23 EDT documented in this encounter Plan of Treatment Upcoming Encounters Date Type Department Care Team (Late st Contact Info) Description 08/23/2025 12:45 PM EST Office Visit [facility] Electrophysiology [address] [place] [phone] [place] [address] [place] [address] [address] documented as of this encounter Visit Diagnoses Not on filedocumented in this encounter Care Teams Station Baggage Agent Relationship Specialty Start Date End Date Alfred Cantu MD [address] [place] [address] PCP - General General Internal Medicine 08/29/22 [place] [address] [place] [address] [address] [place] [address] Fruit And Vegetable Factory Worker Interventional Cardiology 08/29/22 Vik Corcoran MD [address] [place] [address] Fruit And Vegetable Factory Worker Electrophysiology 05/19/24 documented as of this encounter
--- OUTSIDE RECORDS SUMMARY | 2025-05-24 17:07 | XMS_ITS | Encounter Summary ---
Author Organization [employer] ([place], [place], [place], [place]) Address [address] [place] [address] Care Team Providers Care Universal Worker Assisted Living Name Role Phone Alfred Cantu MD Primary Care Provider [phone] Lyndsey Key MD Unavailable [phone] Vik Corcoran MD Unavailable Encounter Details Date Type Department Care Team (Late st Contact Info) Description 08/16/2021 Transcribed Document [facility] [place] Family Medicine [facility] [place] [address] ProviderRashard MD [address] [place] [address] Social History Tobacco Use Types Packs/Day [...] Rashard Gonzalez MD - 08/16/2021 9:42 AM OPERATING ENGINEER Patient Education Materials Follows: Groin Site Care [...] Document Reviewed: 08/30/2011 ExitCare? Patient Information ?2014 [employer]. Pharmacology General Anesthesia, Adult, Care After This [...] activities are safe for you. ??? Take rtej-cqy-lajrpbs and prescription medicines only as told by [...] these instructions at home: Medicines ??? Take keko-sme-ematexh and prescription medicines only as told by [...] and water are not available, use hand broomcorn sorter. ? Change your dressing as told by [...] Reviewed: 04/05/2021 Elsevier Patient Education ? 2020 ElseRemind Inc. documented in this encounter Plan of Treatment Upcoming Encounters Date Type Department Care Team (Late st Contact Info) Description 08/23/2025 12:45 PM EST Office Visit [facility] Electrophysiology [address] [place] [address] [place] [address] [place] [address] [address] [place] [id number] documented as of this encounter Visit Diagnoses Not on filedocumented in this encounter Care Teams Universal Worker Assisted Living Relationship Specialty Start Date End Date Alfred Cantu MD [address] [place] [address] PCP - General General Internal Medicine 08/29/22 [place] [address] [place] [address] [address] [place], [place] [id number] Four Slide Operator Interventional Cardiology 08/29/22 Vik Corcoran MD [address] [place] [address] [address] [place] [address] Four Slide Operator Electrophysiology 05/19/24 documented as of this encounter
--- OUTSIDE RECORDS SUMMARY | 2025-05-24 17:07 | XMS_ITS | Encounter Summary ---
Author Organization [employer] ([place], [place], [place], [place]) Address [address] [place] [address] Care Team Providers Care Site Interpreter Name Role Phone Alfred Cantu MD Primary Care Provider [phone] Lyndsey Key MD Unavailable [phone] Vik Corcoran MD Unavailable Encounter Details Date Type Department Care Team (Late st Contact Info) Description 10/22/2018 Transcribed Document [facility] [place] [facility] Family Medicine [facility] [place] [address] ProviderRashard MD [address] [place] [address] Social History Tobacco Use Types Packs/Day [...] (OCT 21) Radiology Results (Last 48 hours) [id number] -- 10/20/2018 23:00 CR Chest 1 Vw [...] transfer to telemetry Lizz [facility] Hospitalist pager- [phone] Electronically signed by K[facility] Conversion Culture Room Worker Cerner at 11/28/2022 5:34 PM CDT documented in this encounter Plan of Treatment Upcoming Encounters Date Type Department Care Team (Late st Contact Info) Description 08/23/2025 12:45 PM EST Office Visit [facility] Electrophysiology [address] [place] [address] Vik Corcoran MD [address] [facility] [address] [place] [address] documented as of this encounter Visit Diagnoses Not on filedocumented in this encounter Care Teams Site Interpreter Relationship Specialty Start Date End Date Alfred Cantu MD [address] [place] [address] PCP - General General Internal Medicine 08/29/22 Lyndsey Key MD [address] [facility] [address] [place], [place] [id number] Vehicle Sales Professional Interventional Cardiology 08/29/22 Vik Corcoran MD [address] [facility] [place] [address] Vehicle Sales Professional Electrophysiology 05/19/24 documented as of this encounter
--- OUTSIDE RECORDS SUMMARY | 2025-05-24 17:07 | XMS_ITS | Encounter Summary ---
Author Organization [employer] ([place], [place], [place], [place]) Address [address] [place] [address] Care Team Providers Care Poultry Scientist Name Role Phone Alfred Cantu MD Primary Care Provider [phone] Lyndsey Key MD Unavailable [phone] Vik Corcoran MD Unavailable Encounter Details Date Type Department Care Team (Late st Contact Info) Description 10/23/2018 Transcribed Document [facility] [facility] [place] [address] ProviderRashard MD [address] [place] [address] Social History Tobacco Use Types Packs/Day [...] - Spironolactone started. - Repeat Limited Echo-LVEF=15-20% [facility] 06/2017: Normal coronaries. - LBBB; QRS [...] 1200 mg= 2 Tab, Oral, BID nystatin, [id number] Units= 10 mL, Swish and Swallow , [...] NSR 78 BPM. Electronically signed by Interface, [facility] Conversion Refrigeration Plant Cork Insulator Cerner at 11/28/2022 5:28 PM CDT documented in this encounter Plan of Treatment Upcoming Encounters Date Type Department Care Team (Late st Contact Info) Description 08/23/2025 12:45 PM EST Office Visit [facility] Electrophysiology [address] [place] [address] Vik Corcoran MD [address] [place] [address] [address] [place] [address] documented as of this encounter Visit Diagnoses Not on filedocumented in this encounter Care Teams Poultry Scientist Relationship Specialty Start Date End Date Alfred Cantu MD [address] [place] [address] PCP - General General Internal Medicine 08/29/22 Lyndsey Key MD [address] [place] [address] [address] [place] [address] Hydrotherapist Interventional Cardiology 08/29/22 Vik Corcoran MD [address] [place] [address] [id number] Hydrotherapist Electrophysiology 05/19/24 documented as of this encounter
--- OUTSIDE RECORDS SUMMARY | 2025-05-24 17:07 | XMS_ITS | Encounter Summary ---
Author Organization [employer] ([place], [place], [place], [place]) Address [address] [place] [address] Care Team Providers Care Financial Services Manager Name Role Phone Alfred Cantu MD Primary Care Provider [phone] Lyndsey Key MD Unavailable [phone] Vik Corcoran MD Unavailable Encounter Details Date Type Department Care Team (Late st Contact Info) Description 10/22/2018 Transcribed Document [facility] [place] Family Medicine [facility] [place] [address] ProviderRashard MD [address] [place] [address] Social History Tobacco Use Types Packs/Day [...] : 10/20/2018 23:00 Assisted by, PT : electrical design technologist/aide Personal Devices : Personal Devices No Devices [...] in lap and friend aware to get SUPPORT GROUP MANAGER if needed (Comment: Friend visiting [JENNIE PETER, PT - 11/01/2018 16:07 EDT] ) Treatment End Time : 11/01/2018 14:23 EDT Treatment Time : 15 Minute(s) Actual Treatment Time : 15 Minute(s) JENNIE PEETR, PT - 11/01/2018 16:07 EDT Functional Mobility [...] just getting up to the chair. JENNIE PETER, PT - 11/01/2018 16:07 EDT Cognitive Treatment, [...] JENNIE PETER, PT - 11/01/2018 16:07 EDT Detention Goals Ambulation LTG Grid Goal #1 Device [...] Description 08/23/2025 12:45 PM EST Office Visit [facility] Electrophysiology [address] [place] [phone] [place] [address] [place] [address] [address] documented as of this encounter Visit Diagnoses Not on filedocumented in this encounter Care Teams Financial Services Manager Relationship Specialty Start Date End Date Alfred Cantu MD [address] [place] [address] PCP - General General Internal Medicine 08/29/22 [place] [address] [place] [address] [address] Supervisor Claims Interventional Cardiology 08/29/22 Vik Corcoran MD [address] [place] [address] [address] Supervisor Claims Electrophysiology 05/19/24 documented as of this encounter
--- OUTSIDE RECORDS SUMMARY | 2025-05-24 17:07 | XMS_ITS | Clinical Summary ---
Author Organization Healthcare Address [address] [place] [address] Care Team Providers Care Hand Cooper Helper Name Role Phone Alfred Cantu MD Primary Care Provider [phone] Allergies Active Allergy Reactions Criticality Noted Date [...] (Elocon) 0.1 % cream 8 Active Umeclidinium Arden (Incruse Ellipta) 62.5 MCG/ACT aerosol powder Inhale [...] Screening 1940 [facility]-Medicare Annual Wellness (AWV) 1940 [facility]-Infant/Child/Adol SDOH Screenings 1940 [facility]- SDOH Screenings 1960 [facility]-Adult SDOH Screenings 1960 [facility]-Zoster Vaccines (1 of 2) 1992 [facility]-RSV Vaccine: 60+ Years or (1 - 1-dose 75+ series) 2017 [id number] Vaccine (3 - season) 2025 10/12/2020, 09/14/2020 [facility]-Influenza Vaccine (#1) 04/11/202506/04, 05/11/2013, [...] to complete this topic [place] [address] Care Teams Hand Cooper Helper Relationship Specialty Start Date End Date Alfred Cantu MD [facility] [address] [place] [id number] PCP - General 12/22/20
--- OUTSIDE RECORDS SUMMARY | 2025-05-24 17:07 | XMS_ITS | Encounter Summary ---
Author Organization [employer] ([place], [place], [place], [place]) Address [address] [place] [address] Care Team Providers Care Mine Inspector Name Role Phone Alfred Cantu MD Primary Care Provider [phone] Lyndsey Key MD Unavailable [phone] Vik Corcoran MD Unavailable Encounter Details Date Type Department Care Team (Late st Contact Info) Description 10/22/2018 Transcribed Document [facility] [place] Family [place] [address] ProviderRashard MD [address] [place] [address] Social History Tobacco Use Types Packs/Day [...] healing during her recovery. Patient is Independent Anabaptist and active in her jehovah's witness. Prayed with patient and family member. Spiritual/Emotional Acuity : Low Spiritual Framework : Well integrated, provides significant strength/resource Active in a Methodist/Renee Group : Yes Amish Preference : Other: Independent Anabaptist CAIT HOGAN, Tire Worker-Non Cert - 10/22/2018 20:13 EDT Electronically signed by [facility] Conversion Forest Economics Professor Cerner at 11/28/2022 5:38 PM CDT documented in this encounter Plan of Treatment Upcoming Encounters Date Type Department Care Team (Late st Contact Info) Description 08/23/2025 12:45 PM EST Office Visit [facility] Electrophysiology [address] [place] [address] [place] [address] [place] [address] [address] [place] [address] documented as of this encounter Visit Diagnoses Not on filedocumented in this encounter Care Teams Mine Inspector Relationship Specialty Start Date End Date Alfred Cantu MD [address] [place] [address] PCP - General General Internal Medicine 08/29/22 [place] [address] [place] [address] [address] [place] [address] Television Technician Interventional Cardiology 08/29/22 [place] [address] [place] [address] [address] [place] [address] Television Technician Electrophysiology 05/19/24 documented as of this encounter
--- OUTSIDE RECORDS SUMMARY | 2025-05-24 17:07 | XMS_ITS | Encounter Summary ---
Author Organization [employer] ([place], [place], [place], [place]) Address [address] [place] [address] Care Team Providers Care Activities Officer Name Role Phone Alfred Cantu MD Primary Care Provider [phone] Lyndsey Key MD Unavailable [phone] Vik Corcoran MD Unavailable Encounter Details Date Type Department Care Team (Late st Contact Info) Description 10/22/2018 Transcribed Document [facility] [place] Family Medicine [facility] [place] [address] ProviderRashard MD [address] [place] [address] Social History Tobacco Use Types Packs/Day [...] Source : Stated Height Entry Format : [place] Height, Feet : 5 ft Height, Inches : 0 Inch Clinical Height : 152.4 cm Body Surface Area (BSA), Routine : 1.85 m2 Body Mass Index (BMI), Routine : 38.06 kg/m2 [facility] - 10/22/2018 6:12 EDT Electronically signed by Interface, [facility] Conversion Bar Finish Operator Cerner at 11/28/2022 5:33 PM CDT documented in this encounter Plan of Treatment Upcoming Encounters Date Type Department Care Team (Late st Contact Info) Description 08/23/2025 12:45 PM EST Office Visit [facility] Electrophysiology [address] [place] [address] Vik Corcoran MD [address] [place] [address] [id number] documented as of this encounter Visit Diagnoses Not on filedocumented in this encounter Care Teams Activities Officer Relationship Specialty Start Date End Date Alfred Cantu MD [address] [place] [address] PCP - General General Internal Medicine 08/29/22 Lyndsey Key MD [address] [place] [address] [address] Produce Assistant Interventional Cardiology 08/29/22 Vik Corcoran MD [address] [place] [address] [address] Produce Assistant Electrophysiology 05/19/24 documented as of this encounter
--- OUTSIDE RECORDS SUMMARY | 2025-05-24 17:07 | XMS_ITS | Encounter Summary ---
Author Organization [employer] ([place], [place], [place], [place]) Address [address] [place] [address] Care Team Providers Care Prosthetics Technician Name Role Phone Alfred Cantu MD Primary Care Provider Lyndsey Key MD Unavailable [phone] Vik Corcoran MD Unavailable Encounter Details Date Type Department Care Team (Late st Contact Info) Description 11/02/2018 Transcribed Document [facility] [place] Family Medicine Counts include 234 beds at the [facility] [place] [address] ProviderRashard MD [address] [place] [address] Social History Tobacco Use Types Packs/Day [...] Rashard ProviderMD - 11/02/2018 12:47 PM CDT [address] , [place] [address] Patient Copy Patient Information: Name: KATHY CARTER Current Date: 11/02/2018 12:47:40 : 1940 Patient Address: [address] [place] [address] [place] [address] Patient Attending Physician: CARMELLA MEI MD-INT Primary Care Provider: ZAY, NOT LISTED Primary Care Provider Phone: Discharge Diagnosis: Weight on Admission: 194 lb, 1 oz Weight at Discharge: 186 lb, 3 oz Comment: Follow-up Instructions: With: Address: When: KASH BUTTS [address] [place] [address], [address] [place] [address] Business (1) Within 2 to [...] assistance finding a family MD please call [phone]. With: Address: When: NAZANIN NAVA [address] [place] [address]., [address] [place] [id number] [facility] (1) [...] the dressing Medical Equipment for Home Use: [facility] for bedside commode and nebulizer [phone] Home Health Services: [facility] [phone] Immunizations Documented During Stay: No Immunizations Found [...] Discharge Instructions (if any): Final Medication List: [facility], [place] [address], [phone] amiodarone (amiodarone 200 mg oral tablet) 2 [...] Follow these instructions at home: Medicines??? Take wdjl-qzd-oyguchz and prescription medicines only as told by [...] and water are not available, use hand metal rolling mill operator. ? Change your dressing as told [...] radio towers. ??? Do notuse amateur ( [employer] ) radio equipment or electric ( arc [...] 12/08/2007 Document Revised: 04/21/2017 Document Reviewed: 03/06/2015 Progressus Interactive Patient Education ? 2017 [employer]ID. Smoking Hazards Smoking cigarettes is extremely bad [...] 09/04/2005 Document Revised: 11/18/2016 Document Reviewed: 01/17/2014 ElseVenture [employer] Intelligence Interactive Patient Education ? 2017 [employer]us Inc. Heart-Healthy Eating Plan Many factors influence [...] foods can I eat? Grains Breads, including Guatemalan, white, serenity, wheat, raisin, rye, oatmeal, and Turkmen. Tortillas that are neither fried nor made with lard or trans fat. Low-fat rolls, including hotdog and hamburger buns and Honduran muffins. Biscuits. Muffins. Waffles. Pancakes. Light popcorn. Whole-grain cereals. Flatbread. Nanette toast. Pretzels. Breadsticks. Rusks. Low-fat snacks and crackers, including oyster, saltine, matzo, eslvin, animal, and rye. Rice and pasta, including [...] cheese. Whole milk cheeses, including blue (henry), [place] Gary, Brie, Hayes, Liechten[place] Citizen, Havarti, Tuvaluan, cheddar, Camembert, and Guernsey. Whole or 2% milk that is liquid, [...] that has suet, meat fat, or shortening. Denton butter, hydrogenated oils, palm oil, coconut oil, [...] 05/06/2009 Document Revised: 02/14/2017 Document Reviewed: 01/19/2015 Progressus Interactive Patient Education ? 2017 [employer] Inc. How to Take a Pulse Your [...] 02/01/2004 Document Revised: 02/14/2017 Document Reviewed: 12/31/2016 Progressus Interactive Patient Education ? 2017 [employer] Inc. How to Take Your Blood Pressure [...] 07/10/2009 Document Revised: 08/18/2015 Document Reviewed: 09/22/2014 Progressus Interactive Patient Education ? 2017 [employer]us Inc. Cardiomyopathy, Adult Cardiomyopathy is a long-term [...] Other treatments may include cardiac resynchronization therapy (PAINTING WORKER) or a left ventricular assist device (LVAD). [...] to manage stress. General instructions ??? Take fimt-xjc-pktehju and prescription medicines only as told by [...] 10/10/2005 Document Revised: 03/25/2017 Document Reviewed: 01/27/2017 ElseVenture Market Intelligence Interactive Patient Education ? 2017 [employer]us Inc. Medication Leaflets: carvedilol (PRABHJOT ve dil [...] may report side effects to FDA at 3-642-HJD-7884. What other drugs will affect carvedilol? Other drugs may interact with carvedilol, including prescription and yavo-djj-kxtovhz medicines, vitamins, and herbal products. Tell each [...] to ensure that the information provided by VideoPros. ('Multum') is accurate, up-to-date, and complete, but no guarantee is made to that effect. Drug information contained herein may be time sensitive. Datometry information has been compiled for use by healthcare practitioners and consumers in the [place] and therefore Datometry does not warrant that uses outside of the [place] are appropriate, unless specifically indicated otherwise. [employer] drug information does not endorse drugs, diagnose patients or recommend therapy. [employer] drug information is an informational resource [...] effective or appropriate for any given patient. [facility] does not assume any responsibility for any aspect of healthcare administered with the aid of information Datometry provides. The information contained herein is not intended to cover all possible uses, directions, precautions, warnings, drug interactions, allergic reactions, or adverse effects. If you have questions about the drugs you are taking, check with your doctor, nurse or pharmacist. Copyright 0003-6545 [employer]. Version: 15.. Revision Date: 08/30/2013. albuterol and [...] may report side effects to FDA at 6-751-BLU-8759. What other drugs will affect albuterol and ipratropium inhalation? Tell your doctor about all your current medicines and any you start or stop using, especially: ? a diuretic or 'water pill'; ?? heart or blood pressure medicine; ?? other beta-blockers; or ?? an antidepressant. This list is not complete. Other drugs may interact with albuterol and ipratropium, including prescription and udyo-bnv-tofbyii medicines, vitamins, and herbal products. Not all [...] to ensure that the information provided by [employer]Pros. ('Multum') is accurate, up-to-date, and complete, but no guarantee is made to that effect. Drug information contained herein may be time sensitive. Datometry information has been compiled for use by healthcare practitioners and consumers in the [place] and therefore Datometry does not warrant that uses outside of the [place] are appropriate, unless specifically indicated otherwise. Ellie's drug information does not endorse drugs, diagnose patients or recommend therapy. [employer] drug information is an informational resource designed [...] effective or appropriate for any given patient. [facility] does not assume any responsibility for any aspect of healthcare administered with the aid of information [employer] provides. The information contained herein is not intended to cover all possible uses, directions, precautions, warnings, drug interactions, allergic reactions, or adverse effects. If you have questions about the drugs you are taking, check with your doctor, nurse or pharmacist. Copyright 5563-5631 VideoPros. Version: 7.01. Revision Date: 04/04/2017. guaifenesin (gwye [...] What should I avoid while taking guaifenesin? documented in this encounter Plan of Treatment Upcoming Encounters Date Type Department Care Team (Late st Contact Info) Description 08/23/2025 12:45 PM EST Office Visit [facility] Electrophysiology [address] [place] [address] Vik Corcoran MD [address] [facility] [address] [place] [address] documented as of this encounter Visit Diagnoses Not on filedocumented in this encounter Care Teams Prosthetics Technician Relationship Specialty Start Date End Date Alfred Cantu MD [address] [place] [address] PCP - General General Internal Medicine 08/29/22 Lyndsey Key MD [address] [facility] [address] [address] Parish Worker Interventional Cardiology 08/29/22 [place] [address] [place] [address] [address] Parish Worker Electrophysiology 05/19/24 documented as of this encounter
--- OUTSIDE RECORDS SUMMARY | 2025-05-24 17:07 | XMS_ITS | Encounter Summary ---
Author Organization [employer] ([place], [place], [place], [place]) Address [address] [place] [address] Care Team Providers Care Twisting Frame Changer Name Role Phone Alfred Cantu MD Primary Care Provider [phone] Lyndsey Key MD Unavailable [phone] Vik Corcoran MD Unavailable Encounter Details Date Type Department Care Team (Late st Contact Info) Description 10/23/2018 Transcribed Document [facility] [place] Family Medicine [address] [place] [address] ProviderRashard MD [address] [place] [address] Social History Tobacco Use Types Packs/Day [...] EST Office Visit [facility] Electrophysiology [address] [place] [address] [place] [address] [place] [address] [address] [place] [address] documented as of this encounter Visit Diagnoses Not on filedocumented in this encounter Care Teams Twisting Frame Changer Relationship Specialty Start Date End Date Alfred Cantu MD [address] [place] [address] PCP - General General Internal Medicine 08/29/22 [place] [address] [place] [address] [address] [address] Bulk Sealer Operator Interventional Cardiology 08/29/22 Vik Corcoran MD [address] [place] [address] [address] [place], [place] [id number] Bulk Sealer Operator Electrophysiology 05/19/24 documented as of this encounter
--- OUTSIDE RECORDS SUMMARY | 2025-05-24 17:07 | XMS_ITS | Encounter Summary ---
Author Organization [employer] ([place], [place], [place], [place]) Address [address] [place] [address] Care Team Providers Care Certified Forklift Operator Name Role Phone Alfred Cantu MD Primary Care Provider [phone] Lyndsey Key MD Unavailable [phone] Vik Corcoran MD Unavailable Encounter Details Date Type Department Care Team (Late st Contact Info) Description 10/21/2018 Transcribed Document [facility] Family Medicine [facility] [place] [address] ProviderRashard MD [address] [place] [address] Social History Tobacco Use Types Packs/Day [...] 10/21/2018 16:38 EDT Electronically signed by Kavita [facility] Conversion Sheet Rock Installer Cerner at 11/28/2022 5:40 PM CDT documented in this encounter Plan of Treatment Upcoming Encounters Date Type Department Care Team (Late st Contact Info) Description 08/23/2025 12:45 PM EST Office Visit [facility] Electrophysiology [address] [place] [address] [place] [address] [place] [address] [address] [place], [place] [id number] documented as of this encounter Visit Diagnoses Not on filedocumented in this encounter Care Teams Certified Forklift Operator Relationship Specialty Start Date End Date Alfred Cantu MD [address] [place] [address] PCP - General General Internal Medicine 08/29/22 [place] [address] [place] [address] [address] [place] [address] Power Cleaner Operator Interventional Cardiology 08/29/22 [place] [address] [place] [address] [address] [place], [place] [id number] Power Cleaner Operator Electrophysiology 05/19/24 documented as of this encounter
--- OUTSIDE RECORDS SUMMARY | 2025-05-24 17:07 | XMS_ITS | Encounter Summary ---
Author Organization [employer] ([place], [place], [place], [place]) Address [address] [place] [address] Care Team Providers Care Radiation Oncologist Name Role Phone Alfred Cantu MD Primary Care Provider [phone] Lyndsey Key MD Unavailable [phone] Vik Corcoran MD Unavailable Encounter Details Date Type Department Care Team (Late st Contact Info) Description 10/22/2018 Transcribed Document [facility] Family Medicine [facility] [place] [address] ProviderRashard MD [address] [place] [address] Social History Tobacco Use Types Packs/Day [...] training, Pain management, Safety education, Therapeutic activities FOSETR ALFARO OTR/Sujey - 10/22/2018 14:46 EDT Residential Goals, OT Grooming LTG Grid Goal #1 [...] FOSTER ALFARO OTR/L - 10/22/2018 14:46 EDT [place] OT Charges OT Selfcare/Hm Mgmt Ea 15 Min : 1 OT Eval Moderate Complexity : 1 FOSTER ALFARO OTR/L - 10/22/2018 14:46 EDT Electronically signed by Kavita [facility] Conversion District Captain Cerner at 11/28/2022 5:34 PM CDT documented in this encounter Plan of Treatment Upcoming Encounters Date Type Department Care Team (Late st Contact Info) Description 08/23/2025 12:45 PM EST Office Visit [facility] Electrophysiology [address] [place] [address] Vik Corcoran MD [address] [facility] [address] [place] [address] documented as of this encounter Visit Diagnoses Not on filedocumented in this encounter Care Teams Radiation Oncologist Relationship Specialty Start Date End Date Alfred Cantu MD [address] [place] [facility] [address] [place] [address] PCP - General General Internal Medicine 08/29/22 Lyndsey Key MD [address] [place] [address] [id number] Commercial Loan Closer Interventional Cardiology 08/29/22 Vik Corcoran MD [address] [place] [address] [id number] Commercial Loan Closer Electrophysiology 05/19/24 documented as of this encounter
--- OUTSIDE RECORDS SUMMARY | 2025-05-24 17:07 | XMS_ITS | Encounter Summary ---
Author Organization [employer] ([place], [place], [place], [place]) Address [address] [place] [address] Care Team Providers Care Career Based Intervention Coordinator Name Role Phone Alfred Cantu MD Primary Care Provider [phone] Lyndsey Key MD Unavailable [phone] Vik Corcoran MD Unavailable Encounter Details Date Type Department Care Team (Late st Contact Info) Description 10/23/2018 Transcribed Document [facility] Family Medicine [facility] [place] [address] ProviderRashard MD [address] [place] [address] Social History Tobacco Use Types Packs/Day [...] On: 10/23/2018 17:15 EDT by REGINA TERRY Workday Director Care Management Note Anticipated Discharge Date : 10/23/2018 15:00 EDT Care Management Note : Continue to follow for discharge needs and arrangements, chart reviewed, admission day #3, transfer from SICU, currently on 2 liters O2/nebs, Sf=422, Cl=88, Mg=2.5, WBC=18.3, CXR=pending, on IV Solumedrol [...] 13:09:33 readmit risk: moderate 57. transfer from [facility]. acute excerbation systolic heart failure. ef 25-30%. severe mitral regurg. severe nicm. CAP. for biv icd today. bipap 50%/02 4-6L nc. zithromax po. zosyn iv. ca gluconate iv x 2. kcl 20meq x 1. na phos iv x 1. PT consult. spoke with Ms. Jimenez. explained role of case management. pt resides in [facility]. she is adl independent. drives car. has cane, walker & cpap provided by [employer]. no current home health or previous rehab stays. discussed dc planning rehab vs home health depending on progress. pt has medicare primary. she advises she has [employer] 2nd insurance. notified Aubrie, pt advocate for inclusion in records. spoke with bedside RNMagda. Documentation Status Complete : Yes REGINA TERRY, Workday Director - 10/23/2018 17:15 EDT Electronically signed by Micheal Walls Conversion Director Regulatory Compliance Cerner at 11/28/2022 5:29 PM CDT documented in this encounter Plan of Treatment Upcoming Encounters Date Type Department Care Team (Late st Contact Info) Description 08/23/2025 12:45 PM EST Office Visit [facility] Electrophysiology [address] [place] [address] Vik Corcoran MD [address] [place] [address] [address] [place] [address] documented as of this encounter Visit Diagnoses Not on filedocumented in this encounter Care Teams Career Based Intervention Coordinator Relationship Specialty Start Date End Date Alfred Cantu MD [address] [place] [address] PCP - General General Internal Medicine 08/29/22 Lyndsey Key MD [address] [facility] [address] [place] [address] Dealer Relationship Manager Interventional Cardiology 08/29/22 Vik Corcoran MD [address] [facility] [address] [place] [address] Dealer Relationship Manager Electrophysiology 05/19/24 documented as of this encounter
--- OUTSIDE RECORDS SUMMARY | 2025-05-24 17:07 | XMS_ITS | Encounter Summary ---
Author Organization [employer] ([place], [place], [place], [place]) Address [address] [place] [address] Care Team Providers Care Cat Cracker Operator Name Role Phone Alfred Cantu MD Primary Care Provider [phone] Lyndsey Key MD Unavailable [phone] Vik Corcoran MD Unavailable Encounter Details Date Type Department Care Team (Late st Contact Info) Description 10/21/[address] [facility] Family Medicine [facility] [place] [address] ProviderRashard MD [address] [place] [address] Social History Tobacco Use Types Packs/Day [...] Visit [facility] Electrophysiology [address] [place] [address] [place] [address] [place] [address] [address] [place], [place] [id number] documented as of this encounter Visit Diagnoses Not on filedocumented in this encounter Care Teams Cat Cracker Operator Relationship Specialty Start Date End Date Alfred Cantu MD [address] [place] [address] PCP - General General Internal Medicine 08/29/22 [place] [address] [place] [address] [address] [place], [place] [id number] Small Animal Caretaker Interventional Cardiology 08/29/22 [place] [address] [place] [address] [address] [place], [place] [id number] Small Animal Caretaker Electrophysiology 05/19/24 documented as of this encounter
--- OUTSIDE RECORDS SUMMARY | 2025-05-24 17:07 | XMS_ITS | Encounter Summary ---
Author Organization [employer] ([place], [place], [place], [place]) Address [address] [place] [address] Care Team Providers Care Frameman Name Role Phone Alfred Cantu MD Primary Care Provider [phone] Lyndsey Key MD Unavailable [phone] Vik Corcoran MD Unavailable Encounter Details Date Type Department Care Team (Late st Contact Info) Description 08/16/[address] [facility] Family [place] [address] ProviderRashard MD [address] [place] [address] Social History Tobacco Use Types [...] - Rashard ProviderMD - 08/16/2021 9:41 AM GENERAL INTERN Nursing Discharge Summary Entered On: 08/16/2021 9:41 [...] - 08/16/2021 9:41 EST Electronically signed by [facility] Conversion Hospital Monitor Cerner at 11/29/2022 12:44 PM CDT documented in this encounter Plan of Treatment Upcoming Encounters Date Type Department Care Team (Late st Contact Info) Description 08/23/2025 12:45 PM EST Office Visit [facility] Electrophysiology [address] [place] [address] Vik Corcoran MD [address] [place] [address] [id number] documented as of this encounter Visit Diagnoses Not on filedocumented in this encounter Care Teams Frameman Relationship Specialty Start Date End Date Alfred Cantu MD [address] [place] [address] PCP - General General Internal Medicine 08/29/22 Lyndsey Key MD [address] [place] [address] [id number] Certified Social Workers In Health Care Interventional Cardiology 08/29/22 Vik Corcoran MD [address] [place] [address] [address] Certified Social Workers In Health Care Electrophysiology 05/19/24 documented as of this encounter
--- OUTSIDE RECORDS SUMMARY | 2025-05-24 17:07 | XMS_ITS | Encounter Summary ---
Author Organization [employer] ([place], [place], [place], [place]) Address [address] [place] [address] Care Team Providers Care Telephone Plant Power Operator Name Role Phone Alfred Cantu MD Primary Care Provider [phone] Lyndsey Key MD Unavailable [phone] Vik Corcoran MD Unavailable Encounter Details Date Type Department Care Team (Late st Contact Info) Description 08/16/2021 Transcribed Document [facility] [place] [place] Family Medicine [facility] [place] [address] ProviderRashard MD [address] [place] [address] Social History Tobacco Use Types Packs/Day Years Used Date Smoking Tobacco: Never Assessed Comments Unknown Sex and Gender Information Value Date Recorded Sex Assigned at Not on file Legal Sex Female 1:15 PM CDT Gender Identity Not on file Sexual Orientation Not on file documented as of this encounter Miscellaneous Notes * Cerner Conversion Note - Historical ProviderMD - 08/16/2021 8:34 AM EDITOR MAGAZINE Pre Procedure Adult Entered On: 08/16/2021 8:38 EST Performed On: 08/16/2021 8:34 EST by JENNIFER BILLINGS RN Height and Weight, Clinical Dosing Height Source : Stated Height Entry Format : Brooks Height, Feet : 5 ft(Converted to: 152 cm, 60 Inch) Height, Inches : 0 Inch(Converted to: 0 ft 0 Inch, 0.00 cm) Clinical Height : 152.4 cm Weight Source : Standing scale Weight Entry Format : Brooks Clinical Dosing Weight : 86.36 kg Weight, Pounds : 190 lb Body Surface Area (BSA) : 1.83 m2 Body Mass Index : 37.2 kg/m2 (HI) [place] Body Weight : 45 kg JENNIFER BILLINGS [...] JENNIFER BILLINGS RN - 08/16/2021 8:34 EST [place] Suicide Severity Rating Scale (C-SSRS) CSSRS Past [...] Obtained From : Patient Primary Language : British Preferred Communication Mode : Verbal Communication Barrier : None Dry Roller Needed : No JENNIFER BILLINGS RN - [...] Level : 46 or > High Risk [place] Fall Interventions : Adequate lighting, Bed in [...] Description 08/23/2025 12:45 PM EST Office Visit [facility] Electrophysiology [address] [place] [address] Vik Corcoran MD [address] [place] [address] [place] [address] documented as of this encounter Visit Diagnoses Not on filedocumented in this encounter Care Teams Telephone Plant Power Operator Relationship Specialty Start Date End Date Alfred Cantu MD [address] [place] [address] PCP - General General Internal Medicine 08/29/22 Lyndsey Key MD [address] [place] [address] [address] Behavioral Health Worker Interventional Cardiology 08/29/22 Vik Corcoran MD [address] [facility] [place] [address] Behavioral Health Worker Electrophysiology 05/19/24 documented as of this encounter
--- OUTSIDE RECORDS SUMMARY | 2025-05-24 17:07 | XMS_ITS | Encounter Summary ---
Author Organization [employer] ([place], [place], [place], [place]) Address [address] [place] [address] Care Team Providers Care Compound Coating Machine Offbearer Name Role Phone Alfred Cantu MD Primary Care Provider [phone] Lyndsey Key MD Unavailable [phone] Vik Corcoran MD Unavailable Encounter Details Date Type Department Care Team (Late st Contact Info) Description 08/16/2021 Transcribed Document [facility] Radiology [address] [place] [address] Brent Fishman MD [address] [place] [address] Social History Tobacco Use Types Packs/Day Years [...] The procedure was carried out in the research laboratory specialist with the patient under general anesthesia. The [...] discussed with Dr. Tam and Dr. Key. /[id number] MD MARQUISE Guzmán/RADHA / MARQUISE / MODL /[id number] documented in this encounter Plan of Treatment Upcoming Encounters Date Type Department Care Team (Late st Contact Info) Description 08/23/2025 12:45 PM EST Office Visit [facility] Electrophysiology [address] [place] [address] [place] [address] [place] [address] [address] [place], [place] [address] documented as of this encounter Visit Diagnoses Not on filedocumented in this encounter Care Teams Compound Coating Machine Offbearer Relationship Specialty Start Date End Date Alfred Cantu MD [address] [place] [address] PCP - General General Internal Medicine 08/29/22 [place] [address] [place] [address] [address] [place] [address] Field Crop Harvest Worker Interventional Cardiology 08/29/22 [place] [address] [place] [address] [address] [place], [place] [id number] Field Crop Harvest Worker Electrophysiology 05/19/24 documented as of this encounter
--- OUTSIDE RECORDS SUMMARY | 2025-05-24 17:07 | XMS_ITS | Encounter Summary ---
Author Organization [employer] ([place], [place], [place], [place]) Address [address] [place] [address] Care Team Providers Care Bureau Chief Name Role Phone Alfred Cantu MD Primary Care Provider [phone] Lyndsey Key MD Unavailable [phone] Vik Corcoran MD Unavailable Encounter Details Date Type Department Care Team (Late st Contact Info) Description 10/22/2018 Transcribed Document [facility] Family Medicine [facility] [place] [address] ProviderRashard MD [address] [place] [address] Social History Tobacco Use Types Packs/Day [...] Rashard ProviderMD - 10/22/2018 10:31 AM CDT Bark Skinner Details Entered On: 10/23/2018 0:20 EDT Performed [...] 10/23/2018 0:20 EDT Electronically signed by Kavita [facility] Conversion [employer] Cerner at 11/28/2022 5:38 PM CDT documented in this encounter Plan of Treatment Upcoming Encounters Date Type Department Care Team (Late st Contact Info) Description 08/23/2025 12:45 PM EST Office Visit [facility] Electrophysiology [address] [place] [address] Vik Corcoran MD [address] [place] [address] [address] [place] [id number] documented as of this encounter Visit Diagnoses Not on filedocumented in this encounter Care Teams Bureau Chief Relationship Specialty Start Date End Date Alfred Cantu MD [address] [place] [address] PCP - General General Internal Medicine 08/29/22 Lyndsey Key MD [address] [place] [address] [address] Land Law Examiner Interventional Cardiology 08/29/22 Vik Corcoran MD [address] [place] [address] [id number] Land Law Examiner Electrophysiology 05/19/24 documented as of this encounter
--- OUTSIDE RECORDS SUMMARY | 2025-05-24 17:07 | XMS_ITS | Encounter Summary ---
Author Organization [employer] ([place], [place], [place], [place]) Address [address] [place] [address] Care Team Providers Care Tin Recovery Worker Name Role Phone Alfred Cantu MD Primary Care Provider [phone] Nivia Key MD Unavailable [phone] Vik Corcoran MD Unavailable Encounter Details Date Type Department Care Team (Late st Contact Info) Description 07/24/2021 Transcribed Document [facility] Family Medicine [facility] [place] [address] ProviderRashard MD [address] [place] [address] Social History Tobacco Use Types Packs/Day Years Used Date Smoking Tobacco: Never Assessed Comments Unknown Sex and Gender Information Value Date Recorded Sex Assigned at Not on file Legal Sex Female 1:15 PM CDT Gender Identity Not on file Sexual Orientation Not on file documented as of this encounter Miscellaneous Notes * Cerner Conversion Note - Rashard ProviderMD - 07/24/2021 2:43 PM DONKEY ENGINE FIRER/FIREMAN [facility] [address] KATHY CARTER :1940 Visit Time:07/24/2021 Your Visit Summary Your Care Team Admitting Physician - NIVIA KEY MD-JODY Attending Physician - NIVIA KEY MD-CAR Primary Care Physician - ALFRED CANTU (REF), MD-INT Referring Physician - NIVIA KEY MD-CAR Your Diagnosis Paroxysmal atrial fibrillation, Paroxysmal atrial fibrillation These Are Your Goals No qualifying data available. Discharge Vitals Heart Rate (Monitored) 58 Respiratory Rate 12 Blood Pressure 154/74 What to do next Follow-Up Appointments Follow Up with NIVIA KEY MD-CAR When Within 2 to 3 days Comments Office to call with appoint/instructions Where: [address] [place] [address] [address] [place] [address] Medications What How Much When Instructions Next [...] including vitamins, herbs, eye drops, creams, and qsql-nee-kdgmuwc medicines. ??? Any problems you or family [...] diabetes medicines or blood thinners. ? Taking ifuq-jpi-hppcmbj medicines, vitamins, herbs, and supplements. ? Taking [...] provider. Document Revised: 01/06/2018 Document Reviewed: 10/24/2017 [employer] Patient Education ?? 2020 [employer] Moderate Conscious Sedation, Adult, Care After [...] you are awake and alert. ??? Take gkto-sgs-jyjaoka and prescription medicines only as told by [...] provider. Document Revised: 06/22/2020 Document Reviewed: 06/22/2020 [employer] Patient Education ?? 2020 [employer]. What to do if you are sick [...] clean your hands with an alcohol-based hand electric razor assembler that contains at least 60 to 95% [...] clean your hands with an alcohol-based hand electric razor assembler that contains at least 60% alcohol, covering [...] isolation precautions should be made on a lwau-pj-dcaz basis, in consultation with healthcare providers and [...] to thoroughly wash your hands, use hand electric razor assembler. While handwashing is best, hand electric razor assembler helps to reduce the spread of germs when you are out and about. Have hand electric razor assembler in several locations so you can always [...] keep people from also getting sick. Don???t [place] It! Sneezing this time of year is [...] Assistance with quitting is available by contacting 7-375-BXXM-NOW. This is a free resource providing counseling, [...] was given the opportunity to ask questions. Patient/Experimental Mechanic Name: Patient/Experimental Mechanic Signature: Relationship to Patient: Clinician/Hospital Experimental Mechanic Signature: Date: documented in this encounter Plan of Treatment Upcoming Encounters Date Type Department Care Team (Late st Contact Info) Description 08/23/2025 12:45 PM EST Office Visit [facility] Electrophysiology [address] [place] [address] Vik Corcoran MD [address] [place] [address] [address] documented as of this encounter Visit Diagnoses Not on filedocumented in this encounter Care Teams Tin Recovery Worker Relationship Specialty Start Date End Date Alfred Cantu MD [address] [place] [address] PCP - General General Internal Medicine 08/29/22 Nivia Key MD [address] [place] [address] [address] Stock Chaser Interventional Cardiology 08/29/22 Vik Corcoran MD [address] [place] [address] [address] Stock Chaser Electrophysiology 05/19/24 documented as of this encounter
--- OUTSIDE RECORDS SUMMARY | 2025-05-24 17:07 | XMS_ITS | Encounter Summary ---
Author Organization [employer] ([place], [place], [place], [place]) Address [address] [place] [address] Care Team Providers Care Critical Power Install Technician Name Role Phone Alfred Cantu MD Primary Care Provider [phone] Lyndsey Key MD Unavailable [phone] Vik Corcoran MD Unavailable Encounter Details Date Type Department Care Team (Late st Contact Info) Description 10/22/2018 Transcribed Document [facility] Family Medicine [address] [place] [address] ProviderRashard MD [address] [place] [address] Social History Tobacco Use Types Packs/Day [...] started. - Repeat Limited Echo-LVEF=15-20% [facility] 06/2017: Normal coronaries. - LBBB; QRS [...] mL, IV Push, See Comment, PRN nystatin, [id number] Units= 10 mL, Swish and Swallow , [...] / 36.4 \ Electronically signed by Interface, [facility] Conversion Band Teacher Cerner at 11/28/2022 5:30 PM CDT documented in this encounter Plan of Treatment Upcoming Encounters Date Type Department Care Team (Late st Contact Info) Description 08/23/2025 12:45 PM EST Office Visit [facility] Electrophysiology [address] [place] [address] Vik Corcoran MD [address] [place] [address] [place] [address] documented as of this encounter Visit Diagnoses Not on filedocumented in this encounter Care Teams Critical Power Install Technician Relationship Specialty Start Date End Date Alfred Cantu MD [address] [place] [address] PCP - General General Internal Medicine 08/29/22 Lyndsey Key MD [address] [place] [address] [place] [id number] Rail Bonder Interventional Cardiology 08/29/22 Vik Corcoran MD [address] [place] [address] [address] Rail Bonder Electrophysiology 05/19/24 documented as of this encounter
--- OUTSIDE RECORDS SUMMARY | 2025-05-24 17:07 | XMS_ITS | Encounter Summary ---
Author Organization [employer] ([place], [place], [place], [place]) Address [address] [place] [address] Care Team Providers Care Sound Editor Name Role Phone Alfred Cantu MD Primary Care Provider [phone] Lyndsey Key MD Unavailable [phone] Vik Corcoran MD Unavailable Encounter Details Date Type Department Care Team (Late st Contact Info) Description 10/21/2018 Transcribed Document [facility] [place] [facility] [place] [address] ProviderRashard MD [address] [place] [address] Social History Tobacco Use Types Packs/Day [...] On: 10/21/2018 5:34 EDT by Liv Escobedo, Fire Control OfficerHealth Unit Coord Phone Call for Consults Consult Phone Call/Page Attempt : First call Consult Reason : CHF, severe mitral regurgitation Physician Covering for Consult : NAZANIN ORTIZ MD Date and Time Call Returned : 10/21/2018 8:01 EDT Liv Escobedo, Fire Control Officer-Health Unit Coord - 10/21/2018 8:00 EDT Electronically signed by Kavita, [facility] Conversion Ammonia Print Operator Cerner at 11/28/2022 5:41 PM CDT documented in this encounter Plan of Treatment Upcoming Encounters Date Type Department Care Team (Late st Contact Info) Description 08/23/2025 12:45 PM EST Office Visit [facility] Electrophysiology [address] [place] [address] Vik Corcoran MD [address] [place] [address] [address] [place] [address] documented as of this encounter Visit Diagnoses Not on filedocumented in this encounter Care Teams Sound Editor Relationship Specialty Start Date End Date Alfred Cantu MD [address] [place] [address] PCP - General General Internal Medicine 08/29/22 Lyndsey Key MD [address] [place] [address] [address] Broadcaster Interventional Cardiology 08/29/22 Vik Corcoran MD [address] [place] [address] [address] Broadcaster Electrophysiology 05/19/24 documented as of this encounter
--- OUTSIDE RECORDS SUMMARY | 2025-05-24 17:08 | XMS_ITS | Encounter Summary ---
Author Organization [employer] ([place], [place], [place], [place]) Address [address] [place] [address] Care Team Providers Care Percussion Instructor Name Role Phone Alfred Cantu MD Primary Care Provider Lyndsey Key MD Unavailable [phone] Vik Corcoran MD Unavailable Encounter Details Date Type Department Care Team (Late st Contact Info) Description 03/09/2019 Transcribed Document [facility] Pulm & Critical Care Medicine [address] [place] [address] [place] [phone] [place] [address] [place] [address] [address] [place], [place] [id number] Social History Tobacco Use Types Packs/Day Years [...] EST Office Visit [facility] Electrophysiology [address] [place] [address] Vik Corcoran MD [address] [place] [address] [address] [place] [address] documented as of this encounter Visit Diagnoses Not on filedocumented in this encounter Care Teams Percussion Instructor Relationship Specialty Start Date End Date Alfred Cantu MD [address] [place] [address] PCP - General General Internal Medicine 08/29/22 Lyndsey Key MD [address] [place] [address] [address] [place], [place] [id number] International Trade Compliance Manager Interventional Cardiology 08/29/22 Vik Corcoran MD [address] [place] [address] International Trade Compliance Manager Electrophysiology 05/19/24 documented as of this encounter
--- OUTSIDE RECORDS SUMMARY | 2025-05-24 17:08 | XMS_ITS | Encounter Summary ---
Author Organization [employer] ([place], [place], [place], [place]) Address [address] [place] [address] Care Team Providers Care Environmental Web Crawler Name Role Phone Alfred Cantu MD Primary Care Provider [phone] Lyndsey Key MD Unavailable [phone] Vik Corcoran MD Unavailable Encounter Details Date Type Department Care Team (Late st Contact Info) Description 11/02/2018 Transcribed Document [facility] Family [facility] [place] [address] ProviderRashard MD [address] [place] [address] Social History Tobacco Use Types Packs/Day [...] 11/02/2018 5:28 EDT Electronically signed by Kavita [facility] Conversion Patient Care Nursing Assistant Cerner at 11/28/2022 5:44 PM CDT documented in this encounter Plan of Treatment Upcoming Encounters Date Type Department Care Team (Late st Contact Info) Description 08/23/2025 12:45 PM EST Office Visit [facility] Electrophysiology [address] [place] [phone] Vik Corcoran MD [address] [place] [address] [address] [place] [address] documented as of this encounter Visit Diagnoses Not on filedocumented in this encounter Care Teams Environmental Web Crawler Relationship Specialty Start Date End Date Alfred Cantu MD [address] [place] [address] PCP - General General Internal Medicine 08/29/22 Lyndsey Key MD [address] [place] [address] [address] Staffing Executive Interventional Cardiology 08/29/22 Vik Corcoran MD [address] [place] [address] [address] Staffing Executive Electrophysiology 05/19/24 documented as of this encounter
--- OUTSIDE RECORDS SUMMARY | 2025-05-24 17:08 | XMS_ITS | Encounter Summary ---
Author Organization [employer] ([place], [place], [place], [place]) Address [address] [place] [address] Care Team Providers Care Overlock Collar Setter Name Role Phone Alfred Cantu MD Primary Care Provider [phone] Lyndsey Key MD Unavailable [phone] Vik Corcoran MD Unavailable Encounter Details Date Type Department Care Team (Late st Contact Info) Description 11/02/2018 Transcribed Document [facility] [place] [address] [place] [address] ProviderRashard MD [address] [place] [address] Social History Tobacco Use Types Packs/Day [...] On: 11/02/2018 12:23 EDT by REGINA TERRY Test Developer Care Management Note Anticipated Discharge Date : 10/23/2018 15:00 EDT Care Management Note : Continue to follow for discharge needs and arrangements, chart reviewed, patient to discharge needs and arrangements. Chart reviewed, patient to discharge home today, transport via family, who will assist with care. [facility] has been alerted to discharge, forwarded updated clinical information and will begin POC upon discharge. Patient's room air was above 90, both at rest and ambulating, per bedside nurse, therefore home oxygen is no longer needed, [facility] to bead picker delivered equipment. Order received to arrange for home nebulizer, arranged via [facility], and they will deliver equipment to patient's home. Pt, RN and family aware and in agreement with plan. Care Management Note Report : REGINA TERRY Social Worker - 10/30/18 11:33:03 Continue to follow for discharge needs and arrangements, admission day #10, 2 liters/nebs, Yw=677, WBC=39.8, CT Abd/pelvis/chest=IMPRESSION: 5 mm nodule in the right mid lung. Right lower lobe consolidation and small right pleural effusion. Follow-up to complete resolution recommended. No nephrolithiasis or hydronephrosis; PO Doxy, PT/TQ=519', Bi-V-ICD site CDI, confirmed with spouseBraxton ([phone]) that plan at discharge remains to return home, HH in place via [facility], O2 for transport at bedside, via [facility] (at discharge will need new room air forwarded to provider @[phone]),BSC ordered via [facility] [place] and they will contact patient's family about delivery to patient's home. CM will continue to follow. LAURA YI Test Developer - 10/28/18 15:47:17 Covering today for D/C [...] #7, on 2 liters O2 REGINA TERRY Test Developer - 10/27/18 17:50:49 Continue to follow for discharge needs and arrangements, chart reviewed, admission day #7, on 2 liters O2, room air=88%; plan is for patient to discharge home with spouse, Braxton ([phone]) who will transport and assist as needed. Orders received for home health and for home oxygen, d/w spouse providers, [facility] and [facility] chosen, referrals made, and portable O2 to be delivered to patient's room prior to discharge and HH to follow up to begin POC upon discharge. CM will continue to follow until discharge to finalize transfer arrangements. REGINA TERRY Test Developer - 10/26/18 17:32:42 Continue to follow for discharge needs and arrangements, chart reviewed, admission day #6, on 2 liters O2/nebs, Fb=551, Cl=95, WBC=18.9, CXR=FINDINGS: The heart is stable in size. The lung rosario demonstrate no significant change in the right base atelectasis. There is no pneumothorax. The support devices are in good position. IMPRESSION: There has been no significant interval change; PT/MS=828' with rwx, PO Prednison, EP completed wound check today on Bi-V-ICD site, plan at discharge (possible Friday10/27/18) is to return home with spouse, Braxton, who will transport and assist with care. HH choice at discharge is [facility], once HH orders for RN/PT/OT in place will make referral and finalize arrangements. Will also watch for patient's room air level on day of discharge in case home oxygen is needed. Will continue to follow. REGINA TERRY Test Developer - 10/23/18 17:17:58 Continue to follow for discharge needs and arrangements, chart reviewed, admission day #3, transfer from SICU, currently on 2 liters O2/nebs, Js=843, Cl=88, Mg=2.5, WBC=18.3, CXR=pending, on IV Solumedrol q6, PT/OT-will need reeval orders due to recent procedure, patient underwent a Bi-V-ICD placement today. Plan at discharge remains to return home with family support (+/- Home Health). CM will continue to follow. CONNIE LIVE, RN-Teaching Assistant - 10/22/18 13:28:57 improving chf. severe mitral regurg. nicm bipap/02 3L nc. zithromax. lasix iv q 8 hr. PT/OT consults. biv icd tomorrow. CONNIE LIVE, RN-Teaching Assistant - 10/21/18 13:09:33 readmit risk: moderate 57. [...] cane, walker & cpap provided by [facility]. no current home health or previous rehab stays. discussed dc planning rehab vs home health depending on progress. pt has medicare primary. she advises she has [employer] insurance. notified Aubrie, pt advocate for inclusion in records. spoke with bedside RNMagda. Documentation Status Complete : Yes REGINA TERRY Social Worker - 11/02/2018 12:23 EDT Discharge Planning Details Discharge Home : Home, Home health (related) Home Caregiver Name/Relationship : Braxton Jimenez spouse [phone] Discharge Home Care Needs : Occupational therapy, Physical Therapy, halfway care Discharge Placement Needs : Home Persons Assisting Patient at Home : Spouse Transportation Needs : REGINA Alston Social Worker - 11/02/2018 12:23 EDT Final Discharge Disposition Note-CM Discharge To Care Management : Home Health Services (Related/SOC within 3 days)-06 Name of Receiving Facility/Provider-CM : [facility] health REGINA TERRY Social Worker - 11/02/2018 12:23 EDT documented in this encounter Plan of Treatment Upcoming Encounters Date Type Department Care Team (Late st Contact Info) Description 08/23/2025 12:45 PM EST Office Visit [facility] Electrophysiology [address] [place] [address] [place] [address] [place] [address] [address] [place] [id number] documented as of this encounter Visit Diagnoses Not on filedocumented in this encounter Care Teams Overlock Collar Setter Relationship Specialty Start Date End Date Alfred Cantu MD [address] [place] [address] PCP - General General Internal Medicine 08/29/22 [place] [address] [place] [address] [address] [place], [place] [id number] Air Defense Specialist Interventional Cardiology 08/29/22 Vik Corcoran MD [address] [facility] [address] [place], [place] [id number] Air Defense Specialist Electrophysiology 05/19/24 documented as of this encounter
--- OUTSIDE RECORDS SUMMARY | 2025-05-24 17:08 | XMS_ITS | Encounter Summary ---
Author Organization [employer] ([place], [place], [place], [place]) Address [address] [place] [address] Care Team Providers Care Stitch Wheeler Name Role Phone Alfred Cantu MD Primary Care Provider [phone] Lyndsey Key MD Unavailable [phone] Vik Corcoran MD Unavailable Encounter Details Date Type Department Care Team (Late st Contact Info) Description 11/02/2018 Transcribed Document [facility] [place] [facility] [address] ProviderRashard MD [address] [place] [address] Social History Tobacco Use Types Packs/Day [...] 11/02/2018 12:41 EDT Electronically signed by Kavita, [facility] Conversion Oil Recovery Unit Operator Cerner at 11/28/2022 5:43 PM CDT documented in this encounter Plan of Treatment Upcoming Encounters Date Type Department Care Team (Late st Contact Info) Description 08/23/2025 12:45 PM EST Office Visit [facility] Electrophysiology [address] [place] [address] [place] [address] [place] [address] [address] [place] [id number] documented as of this encounter Visit Diagnoses Not on filedocumented in this encounter Care Teams Stitch [place] Relationship Specialty Start Date End Date Alfred Cantu MD [address] [place] [address] PCP - General General Internal Medicine 08/29/22 Lyndsey Key MD [address] [place] [address] [address] Insecticide Supervisor Interventional Cardiology 08/29/22 Vik Corcoran MD [address] [place] [address] [address] Insecticide Supervisor Electrophysiology 05/19/24 documented as of this encounter
--- OUTSIDE RECORDS SUMMARY | 2025-05-24 17:08 | XMS_ITS | Encounter Summary ---
Author Organization [employer] ([place], [place], [place], [place]) Address [address] [place] [address] Care Team Providers Care Clinical Dietetic Technician Name Role Phone Alfred Cantu MD Primary Care Provider [phone] Lyndsey Key MD Unavailable [phone] Vik Corcoran MD Unavailable Encounter Details Date Type Department Care Team (Late st Contact Info) Description 10/20/2018 Transcribed Document [facility] [place] [address] ProviderRashard MD [address] [place] [address] Social History Tobacco Use Types Packs/Day [...] Chief Complaint sob and cough Transfered from [facility] bec of CHF and severe Mitral reguargitation and for possible ICD. History of Present Illness Ms. Carter, T8 years old female with past medical history of hypertension, mitral valve regurg, asthma, who was transferred from [facility] because of CHFexacerbation and severe mitral regurg for possible ICD placement. Dr. Segundo accepted the pt. She had been admitted to [facility] for 3 days treated for pneumonia. She states that she was complaining of cough with clear sputum and shortness of breath and x-ray showed pneumonia. She states that over the past 4 months she has had several different treatments for community-acquired bronchitis/asthma exacernbation with steroids and azithromycin. During her admission at [facility] was given Zosyn, azithromycin and Levaquin. Levaquin [...] and her Time spent is 52 minutes documented in this encounter Plan of Treatment Upcoming Encounters Date Type Department Care Team (Late st Contact Info) Description 08/23/2025 12:45 PM EST Office Visit [facility] Electrophysiology [address] [place] [address] [place] [address] [place] [address] [address] [place] [id number] documented as of this encounter Visit Diagnoses Not on filedocumented in this encounter Care Teams Clinical Dietetic Technician Relationship Specialty Start Date End Date Alfred Cantu MD [address] [place] [address] PCP - General General Internal Medicine 08/29/22 [place] [address] [place] [address] [address] [place] [id number] Quality Project Manager Interventional Cardiology 08/29/22 [place] [address] [place] [address] [address] [place], [place] [id number] Quality Project Manager Electrophysiology 05/19/24 documented as of this encounter
--- OUTSIDE RECORDS SUMMARY | 2025-05-24 17:08 | XMS_ITS | Encounter Summary ---
Author Organization [employer] ([place], [place], [place], [place]) Address [address] [place] [address] Care Team Providers Care Lathe Puller Name Role Phone Alfred Cantu MD Primary Care Provider [phone] Lyndsey Key MD Unavailable [phone] Vik Corcoran MD Unavailable Encounter Details Date Type Department Care Team (Late st Contact Info) Description 10/21/2018 Transcribed Document [facility] [place] Family Medicine [facility] [place] [address] ProviderRashard MD [address] [place] [address] Social History Tobacco Use Types Packs/Day [...] a 78 year old female transferred from [facility] last week with PNA and acute decompensation of CHF in setting of severe Mitral Regurgitation, NICM (EF 25-30%), transferred from [facility] for BIV-ICD implant. Patient has a PMH [...] started. Repeat Limited echo-LVEF=15-20% NYHA class III [facility] 06/2017: Normal coronaries. - LBBB; [...] mL, IV Push, See Comment, PRN nystatin, [id number] Units= 10 mL, Swish and Swallow , [...] Estimated Creatinine Clearance 42.97 mL/Min 10/21/2018 06:27 documented in this encounter Plan of Treatment Upcoming Encounters Date Type Department Care Team (Late st Contact Info) Description 08/23/2025 12:45 PM EST Office Visit [facility] Electrophysiology [address] [place] [phone] Vik Corcoran MD [address] [place] [address] [address] [place] [address] documented as of this encounter Visit Diagnoses Not on filedocumented in this encounter Care Teams Lathe Puller Relationship Specialty Start Date End Date Alfred Cantu MD [address] [place] [address] PCP - General General Internal Medicine 08/29/22 [place] [address] [place] [address] [address] [place] [address] Big Data Developer Interventional Cardiology 08/29/22 [place] [address] [place] [address] [address] [place] [address] Big Data Developer Electrophysiology 05/19/24 documented as of this encounter
--- OUTSIDE RECORDS SUMMARY | 2025-05-24 17:08 | XMS_ITS | Encounter Summary ---
Author Organization [employer] ([place], [place], [place], [place]) Address [address] [place] [address] Care Team Providers Care Apparatus Operator Name Role Phone Alfred Cantu MD Primary Care Provider Lyndsey Key MD Unavailable [phone] Vik Corcoran MD Unavailable Encounter Details Date Type Department Care Team (Late st Contact Info) Description 10/21/2018 Transcribed Document [facility] [place] [facility] [place] [address] ProviderRashard MD [address] [place] [address] Social History Tobacco Use Types Packs/Day [...] MAR summary 10/21 azithromycin IV zosyn IV CDS/Coal Trimmer Signature: CELESTINO Lemus RN, CDS Phone #: [phone] This is a permanent part of the Medical Record documented in this encounter Plan of Treatment Upcoming Encounters Date Type Department Care Team (Late st Contact Info) Description 08/23/2025 12:45 PM EST Office Visit [facility] Electrophysiology [address] [place] [address] Vik Corcoran MD [address] [place] [address] [address] [place] [address] documented as of this encounter Visit Diagnoses Not on filedocumented in this encounter Care Teams Apparatus Operator Relationship Specialty Start Date End Date Alfred Cantu MD [address] [place] [address] PCP - General General Internal Medicine 08/29/22 Lyndsey Key MD [address] [facility] [address] [place], [place] [id number] Featherer Interventional Cardiology 08/29/22 Vik Corcoran MD [address] [facility] [address] [place] [address] Featherer Electrophysiology 05/19/24 documented as of this encounter
--- OUTSIDE RECORDS SUMMARY | 2025-05-24 17:08 | XMS_ITS | Encounter Summary ---
Author Organization [employer] ([place], [place], [place], [place]) Address [address] [place] [address] Care Team Providers Care Sales And Events Coordinator Name Role Phone Alfred Cantu MD Primary Care Provider [phone] Lyndsey Key MD Unavailable [phone] Vik Corcoran MD Unavailable Encounter Details Date Type Department Care Team (Late st Contact Info) Description 11/02/2018 Transcribed Document [facility] [place] [place] [address] ProviderRashard MD [address] [place] [address] Social History Tobacco Use Types Packs/Day [...] On: 11/02/2018 13:30 EDT by Demetria Ramirez Charge Machine Operator Discharge Summary Discharge Summary Provider Notified : Nursing, Physical Therapy Reason for Discharge : Discharge order Discharged to, Therapy : Home, with home health Demetria Ramirez Charge Machine Operator - 11/02/2018 16:27 EDT Discharge Summary Comment, [...] Not met Comment : 10/24/18 Demetria Ramirez Charge Machine Operator - 11/02/2018 16:27 EDT Hemming And Tacking Machine Operator Goals Ambulation LTG Grid Goal #1 Device : None Distance : 375' Assist : Supervision or set-up Date to Meet : 11/07/2018 EDT Goal Status : Not met Comment : Revised 10/23/18 Demetria Ramirez Charge Machine Operator - 11/02/2018 16:27 EDT Electronically signed by [facility] Conversion Injection Maintenance Technician Cerner at 11/28/2022 5:46 PM CDT documented in this encounter Plan of Treatment Upcoming Encounters Date Type Department Care Team (Late st Contact Info) Description 08/23/2025 12:45 PM EST Office Visit [facility] Electrophysiology [address] [place] [phone] Vik Corcoran MD [address] [place] [address] [place] [address] documented as of this encounter Visit Diagnoses Not on filedocumented in this encounter Care Teams Sales And Events Coordinator Relationship Specialty Start Date End Date Alfred Cantu MD [address] [place] [address] PCP - General General Internal Medicine 08/29/22 Lyndsey Key MD [address] [place] [address] [address] [place] [address] Fruit And Vegetable Inspector Interventional Cardiology 08/29/22 Vik Corcoran MD [address] [place] [address] [address] [place] [address] Fruit And Vegetable Inspector Electrophysiology 05/19/24 documented as of this encounter
--- OUTSIDE RECORDS SUMMARY | 2025-05-24 17:08 | XMS_ITS | Encounter Summary ---
Author Organization [employer] ([place], [place], [place], [place]) Address [address] [place] [address] Care Team Providers Care Contour Grinder Name Role Phone Alfred Cantu MD Primary Care Provider [phone] Lyndsey Key MD Unavailable [phone] Vik Corcoran MD Unavailable Encounter Details Date Type Department Care Team (Late st Contact Info) Description 11/02/2018 Transcribed Document [facility] [place] Medicine [facility] [place] [address] ProviderRashard MD [address] [place] [address] Social History Tobacco Use Types Packs/Day [...] Rashard ProviderMD - 11/02/2018 2:00 AM CDT Room Service Runner Details Entered On: 11/02/2018 5:28 EDT Performed [...] 11/02/2018 5:27 EDT Electronically signed by Kavita, [facility] Conversion Parts Specialist Cerner at 11/28/2022 5:46 PM CDT documented in this encounter Plan of Treatment Upcoming Encounters Date Type Department Care Team (Late st Contact Info) Description 08/23/2025 12:45 PM EST Office Visit [facility] Electrophysiology [address] [place] [phone] Vik Corcoran MD [address] [place] [address] [address] [place], [place] [id number] documented as of this encounter Visit Diagnoses Not on filedocumented in this encounter Care Teams Contour Grinder Relationship Specialty Start Date End Date Alfred Cantu MD [address] [place] [address] PCP - General General Internal Medicine 08/29/22 Lyndsey Key MD [address] [place] [address] [address] Labor Operator Interventional Cardiology 08/29/22 Vik Corcoran MD [address] [place] [address] [address] Labor Operator Electrophysiology 05/19/24 documented as of this encounter
--- OUTSIDE RECORDS SUMMARY | 2025-05-24 17:08 | XMS_ITS | Encounter Summary ---
Author Organization [employer] ([place], [place], [place], [place]) Address [address] [place] [address] Care Team Providers Care Shipping Support Name Role Phone Alfred Cantu MD Primary Care Provider [phone] Lyndsey Key MD Unavailable [phone] Vik Corcoran MD Unavailable Encounter Details Date Type Department Care Team (Late st Contact Info) Description 10/21/2018 Transcribed Document [facility] [place] Family Medicine [address] [place] [address] ProviderRashard MD [address] [place] [address] Social History Tobacco Use Types Packs/Day [...] RN Intervention Information: acetaminophen Performed by Ivet Smiht RN on 10/30/2018 21:49:00 EDT acetaminophen,325mg Oral,Pain [...] Visit [facility] Electrophysiology [address] [place] [address] Vik Corcoran MD [address] [place] [address] [address] [place], [place] [phone] documented as of this encounter Visit Diagnoses Not on filedocumented in this encounter Care Teams Shipping Support Relationship Specialty Start Date End Date Alfred Cantu MD [address] [place] [address] PCP - General General Internal Medicine 08/29/22 Lyndsey Key MD [address] [place] [address] [id number] Hydraulic Assembler Interventional Cardiology 08/29/22 Vik Corcoran MD [address] [place] [address] [phone] Hydraulic Assembler Electrophysiology 05/19/24 documented as of this encounter
--- OUTSIDE RECORDS SUMMARY | 2025-05-24 17:08 | XMS_ITS | Encounter Summary ---
Author Organization [employer] ([place], [place], [place], [place]) Address [address] [place] [address] Care Team Providers Care Technical Applications Specialist Name Role Phone Alfred Cantu MD Primary Care Provider [phone] Lyndsey Key MD Unavailable [phone] Vik Corcoran MD Unavailable Encounter Details Date Type Department Care Team (Late st Contact Info) Description 11/02/2018 Transcribed Document [facility] [place] [address] [place] [address] ProviderRashard MD [address] [place] [address] Social History Tobacco Use Types Packs/Day [...] Other treatments may include cardiac resynchronization therapy (VIDEO SURVEILLANCE TECHNICIAN) or a left ventricular assist device [...] to manage stress. General instructions ??? Take vyiy-qlq-zvwbxye and prescription medicines only as told by [...] 10/10/2005 Document Revised: 03/25/2017 Document Reviewed: 01/27/2017 Xpresso Interactive Patient Education ? 2017 [employer]. Emergency Medicine How to Take a Pulse [...] 12/31/2016 Elsevier Interactive Patient Education ? 2017 [employer]. Nutrition Heart-Healthy Eating Plan Many factors [...] foods can I eat? Grains Breads, including Solomon Islander, white, serenity, wheat, raisin, rye, oatmeal, and Korean. Tortillas that are neither fried nor made with lard or trans fat. Low-fat rolls, including hotdog and hamburger buns and Portuguese muffins. Biscuits. Muffins. Waffles. Pancakes. Light popcorn. Whole-grain cereals. Flatbread. [place] toast. Pretzels. Breadsticks. Rusks. Low-fat snacks and [...] cheese. Whole milk cheeses, including blue (henry), [place] Gary, Brie, Hayes, South Sudanese, Havarti, Uruguayan, cheddar, Camembert, and [place]. Whole or 2% milk that is liquid, [...] that has suet, meat fat, or shortening. Pelkie butter, hydrogenated oils, palm oil, coconut oil, [...] 05/06/2009 Document Revised: 02/14/2017 Document Reviewed: 01/19/2015 Xpresso Interactive Patient Education ? 2017 [employer]. Preventive Medicine How to Take Your [...] 07/10/2009 Document Revised: 08/18/2015 Document Reviewed: 09/22/2014 Xpresso Interactive Patient Education ? 2017 [employer]. Pulmonary Medicine Incentive Spirometer An incentive [...] 12/08/2007 Document Revised: 04/21/2017 Document Reviewed: 03/06/2015 Xpresso Interactive Patient Education ? 2016 [employer]. Smoking Hazards Smoking cigarettes is extremely [...] harmful chemicals. FOR MORE INFORMATION ??? [place] Lung Association: www.lung.org ??? [place] Cancer Society: www.cancer.org This information is not intended to replace advice given to you by your health care provider. Make sure you discuss any questions you have with your health care provider. Document Released: 09/04/2005 Document Revised: 11/18/2016 Document Reviewed: 01/17/2014 ElseWISETIVI Interactive Patient Education ? 2017 [employer] Inc. Radiology Biventricular Pacemaker Implantation, Care After [...] Follow these instructions at home: Medicines??? Take dcbx-qat-iqnnoyj and prescription medicines only as told by [...] and water are not available, use hand gut dropper. ? Change your dressing as told by [...] radio towers. ??? Do notuse amateur ( CallApp ) radio equipment or electric ( arc [...] Description 08/23/2025 12:45 PM EST Office Visit [facility] Electrophysiology [address] [place] [phone] Vik Corcoran MD [address] [facility] [address] [place] [address] documented as of this encounter Visit Diagnoses Not on filedocumented in this encounter Care Teams Technical Applications Specialist Relationship Specialty Start Date End Date Alfred Cantu MD [address] [place] [address] PCP - General General Internal Medicine 08/29/22 Lyndsey Key MD [address] [place] [address] [address] Tester Rocket Engine Interventional Cardiology 08/29/22 Vik Corcoran MD [address] [place] [address] [id number] Tester Rocket Engine Electrophysiology 05/19/24 documented as of this encounter
--- OUTSIDE RECORDS SUMMARY | 2025-05-24 17:08 | XMS_ITS | Encounter Summary ---
Author Organization [employer] ([place], [place], [place], [place]) Address [address] [place] [address] Care Team Providers Care Service Rig Operator Name Role Phone Alfred Cantu MD Primary Care Provider [phone] Lyndsey Key MD Unavailable [phone] Vik Corcoran MD Unavailable Encounter Details Date Type Department Care Team (Late st Contact Info) Description 11/02/2018 Transcribed Document [facility] [place] Family Medicine [facility] [address] ProviderRashard MD [address] [place] [address] Social History Tobacco Use Types Packs/Day [...] 1940 Associated Diagnoses: None Author: KASH BUTTS [facility] Basic Information Admit information: Cardiomyopathy with ejection [...] apixaban (Eliquis) - 5 mg, Oral, Tab, [id number], Routine Cardiovascular carvedilol (Coreg) - 12.5 mg, [...] PRN for Other (See Comment), Routine *Duplicate* RADIO MAINTAINER miconazole topical (Desenex AF 2% topical powder) [...] [facility] Electrophysiology [address] [place] [address] [place] [address] [place] [address] [address] [place] [address] documented as of this encounter Visit Diagnoses Not on filedocumented in this encounter Care Teams Service Rig Operator Relationship Specialty Start Date End Date Alfred Cantu MD [address] [place] [address] PCP - General General Internal Medicine 08/29/22 Lyndsey Key MD [address] [facility] [address] [place], [place] [phone] Candle Molder Interventional Cardiology 08/29/22 Vik Corcoran MD [address] [facility] [place] [address] Candle Molder Electrophysiology 05/19/24 documented as of this encounter
--- OUTSIDE RECORDS SUMMARY | 2025-05-24 17:08 | XMS_ITS | Encounter Summary ---
Author Organization [employer] ([place], [place], [place], [place]) Address [address] [place] [address] Care Team Providers Care Discharge Planner Name Role Phone Alfred Cantu MD Primary Care Provider [phone] Lyndsey Key MD Unavailable [phone] Vik Corcoran MD Unavailable Encounter Details Date Type Department Care Team (Late st Contact Info) Description 07/24/2021 Transcribed Document [facility] [place] [facility] [place] [address] ProviderRashard MD [address] [place] [address] Social History Tobacco Use Types [...] - Rashard ProviderMD - 07/24/2021 7:46 AM ASSISTANT HAIRSTYLIST Stroke/Warfarin Instructions Entered On: 07/24/2021 7:48 EST [...] - 07/24/2021 7:46 EST Electronically signed by [facility], [facility] Conversion Distribution Transformer Assembler Cerner at 11/29/2022 12:40 PM CDT documented in this encounter Plan of Treatment Upcoming Encounters Date Type Department Care Team (Late st Contact Info) Description 08/23/2025 12:45 PM EST Office Visit [facility] Electrophysiology [address] [place] [address] Vik Corcoran MD [address] [place] [address] [address] documented as of this encounter Visit Diagnoses Not on filedocumented in this encounter Care Teams Discharge Planner Relationship Specialty Start Date End Date Alfred Cantu MD [address] [place] [address] PCP - General General Internal Medicine 08/29/22 Lyndsey Key MD [address] [place] [address] [address] Billiard Table Assembler Interventional Cardiology 08/29/22 Vik Corcoran MD [address] [place] [address] [address] Billiard Table Assembler Electrophysiology 05/19/24 documented as of this encounter
--- OUTSIDE RECORDS SUMMARY | 2025-05-24 17:08 | XMS_ITS | Encounter Summary ---
Author Organization [employer] ([place], [place], [place], [place]) Address [address] [place] [address] Care Team Providers Care Wire Web Worker Name Role Phone Alfred Cantu MD Primary Care Provider [phone] Lyndsey Key MD Unavailable [phone] Vik Corcoran MD Unavailable Encounter Details Date Type Department Care Team (Late st Contact Info) Description 10/21/2018 Transcribed Document [facility] [place] Family [place] [facility] [place] [address] ProviderRashard MD [address] [place] [address] Social History Tobacco Use Types Packs/Day [...] General Status Patient Received Status : Other: [facility] Treatment Start Time : 10/22/2018 14:25 EDT [...] 10/22/2018 14:46 EDT Activity Comment : Used [facility] CAITY SMALL, PT - 10/22/2018 14:46 EDT [...] CAITY SMALL, PT - 10/22/2018 14:46 EDT Retirement Goals Ambulation LTG Grid Goal #1 Device : None Distance : 375' Assist : Supervision or set-up Date to Meet : 11/05/2018 EDT Goal Status : Intial Goal CAITY SMALL, PT - 10/22/2018 14:46 EDT Treatment Note Subjective Comment : Her goal is to go home and go to adventist Patient's Response to Treatment : Fatigued rapidly [...] SMALL Toy, PT - 10/22/2018 14:46 EDT [facility] PT Charges PT Eval Moderate Complexity : 1 CAITY SMALL Toy, PT - 10/22/2018 14:46 EDT Electronically signed by [facility], [facility] Conversion Audio Visual Tech Cerner at 11/28/2022 5:37 PM CDT documented in this encounter Plan of Treatment Upcoming Encounters Date Type Department Care Team (Late st Contact Info) Description 08/23/2025 12:45 PM EST Office Visit [facility] Electrophysiology [address] [place] [address] Vik Corcoran MD [address] [place] [address] [id number] documented as of this encounter Visit Diagnoses Not on filedocumented in this encounter Care Teams Wire Web Worker Relationship Specialty Start Date End Date Alfred Cantu MD [address] [place] [address] PCP - General General Internal Medicine 08/29/22 [place] [address] [place] [address] [phone] Director Of Clinical Education Interventional Cardiology 08/29/22 Vik Corcoran MD [address] [place] [address] [address] Director Of Clinical Education Electrophysiology 05/19/24 documented as of this encounter
--- OUTSIDE RECORDS SUMMARY | 2025-05-24 17:08 | XMS_ITS | Encounter Summary ---
Author Organization [employer] ([place], [place], [place], [place]) Address [address] [place] [address] Care Team Providers Care Cashier Assistant Name Role Phone Alfred Castillo MD Primary Care Provider [phone] Lyndsey Key MD Unavailable [phone] Vik Corcoran MD Unavailable Encounter Details Date Type Department Care Team (Late st Contact Info) Description 11/02/2018 Transcribed Document [facility] [place] [facility] [place] [address] ProviderRashard MD [address] [place] [address] Social History Tobacco Use Types Packs/Day [...] Rashard ProviderMD - 11/02/2018 1:11 PM CDT [address] , [place] [address] Patient Copy Patient Information: Name: KATHY JIMENEZ Current Date: 11/02/2018 13:11:51 : 1940 Patient Address: [address] [place] [address] [facility] [address] Patient Attending Physician: CARMELLA MEI MD-INT Primary Care Provider: HARPREETY, NOT LISTED Primary Care Provider Phone: Discharge Diagnosis: Weight on Admission: 194 lb, 1 oz Weight at Discharge: 186 lb, 3 oz Comment: Follow-up Instructions: With: Address: When: CLARE LIVINGSTON [address] [facility], [address] [place] [address] Business (1) Within As needed Comments: Please call to make a follow-up appointment IF you are unable to get in with Dr. Castillo within 1 week. With: Address: When: ALFRED CASTILLO [address] [facility] [address], [address] [place] [address] Business (1) Within 1 week Comments: The office is closed today until 2:00 PM this Friday. Please call to make a 1 week follow-up appointment and discuss 3-[address] scan to follow-up regarding pulmonary nodules. Also discuss antibiotic therapy. With: Address: When: KASH BUTTS [address] [facility], [address] [place] [address] Business (1) Within 2 to 4 weeks Comments: Bring Ins Card, Photo ID, Ins Co-pay Bring discharge instructions with you Call for follow up appointment Return with blood work With: Address: When: NAZANIN NAVA [address] [facility] [place], [place] [id number] Business (1) 9:00 AM Comments: You will [...] [facility] for bedside commode and nebulizer [phone] Home Health Services: [facility] [phone] Immunizations Documented During Stay: No Immunizations Found [...] Discharge Instructions (if any): Final Medication List: [facility], [place] [address], [phone] amiodarone (amiodarone 200 mg oral tablet) 2 [...] Follow these instructions at home: Medicines??? Take dmtx-ggn-relytsz and prescription medicines only as told by [...] and water are not available, use hand art dealer. ? Change your dressing as told by [...] radio towers. ??? Do notuse amateur ( [employer]Me[employer] ) radio equipment or electric ( arc [...] 12/08/2007 Document Revised: 04/21/2017 Document Reviewed: 03/06/2015 MongoDB Interactive Patient Education ? 2017 [employer]. Smoking Hazards Smoking cigarettes is extremely [...] contain harmful chemicals. FOR MORE INFORMATION ??? [place] Lung Association: www.lung.org ??? [place] Cancer Society: www.cancer.org This information is not intended to replace advice given to you by your health care provider. Make sure you discuss any questions you have with your health care provider. Document Released: 09/04/2005 Document Revised: 11/18/2016 Document Reviewed: 01/17/2014 MongoDB Interactive Patient Education ? 2017 [employer]. Heart-Healthy Eating Plan Many factors influence your [...] foods can I eat? Grains Breads, including Citizen [place], white, serenity, wheat, raisin, rye, oatmeal, and Syriac. Tortillas that are neither fried nor made with lard or trans fat. Low-fat rolls, including hotdog and hamburger buns and Burmese muffins. Biscuits. Muffins. Waffles. Pancakes. Light popcorn. Whole-grain cereals. Flatbread. [place] toast. Pretzels. Breadsticks. Rusks. Low-fat snacks and [...] cheese. Whole milk cheeses, including blue (henry), [place] Gary, Brie, Hayes, Angolan, Havarti, Cymro, cheddar, Camembert, and [place]jai. Whole or 2% milk that is liquid, [...] that has suet, meat fat, or shortening. Bison butter, hydrogenated oils, palm oil, coconut oil, [...] 05/06/2009 Document Revised: 02/14/2017 Document Reviewed: 01/19/2015 MongoDB Interactive Patient Education ? 2017 [employer]. How to Take a Pulse Your [...] 02/01/2004 Document Revised: 02/14/2017 Document Reviewed: 12/31/2016 MongoDB Interactive Patient Education ? 2017 [employer]. How to Take Your Blood Pressure [...] 09/22/2014 Elsevier Interactive Patient Education ? 2017 [employer]. Cardiomyopathy, Adult Cardiomyopathy is a long-term [...] Other treatments may include cardiac resynchronization therapy (BATTERY STACKER) or a left ventricular assist device (LVAD). [...] to manage stress. General instructions ??? Take xlup-ljw-abymdod and prescription medicines only as told by [...] 10/10/2005 Document Revised: 03/25/2017 Document Reviewed: 01/27/2017 MongoDB Interactive Patient Education ? 2017 [employer]. Medication Leaflets: carvedilol (PRABHJOT ve dil ole) [...] may report side effects to FDA at 9-612-BXG-1692. What other drugs will affect carvedilol? Other drugs may interact with carvedilol, including prescription and xovf-jlr-iimjizc medicines, vitamins, and herbal products. Tell each [...] to ensure that the information provided by [employer] ('[employer]') is accurate, up-to-date, and complete, but no guarantee is made to that effect. Drug information contained herein may be time sensitive. [employer] information has been compiled for use by healthcare practitioners and consumers in the [place] and therefore [employer] does not warrant that uses outside of the [place] are appropriate, unless specifically indicated otherwise. [employer]'s drug information does not endorse drugs, diagnose patients or recommend therapy. [employer] drug information is an informational resource [...] effective or appropriate for any given patient. [employer] does not assume any responsibility for any aspect of healthcare administered with the aid of information [employer] provides. The information contained herein is not intended to cover all possible uses, directions, precautions, warnings, drug interactions, allergic reactions, or adverse effects. If you have questions about the drugs you are taking, check with your doctor, nurse or pharmacist. Copyright 1077-9994 [employer] Version: 15.. Revision Date: 08/30/2013. albuterol and [...] may report side effects to FDA at 3-106-EYE-7730. What other drugs will affect albuterol and ipratropium inhalation? Tell your doctor about all your current medicines and any you start or stop using, especially: ? a diuretic or 'water pill'; ?? heart or blood pressure medicine; ?? other beta-blockers; or ?? an antidepressant. This list is not complete. Other drugs may interact with albuterol and ipratropium, including prescription and rfzm-ael-emywvwo medicines, vitamins, and herbal products. Not all [...] to ensure that the information provided by [employer] ('[employer]') is accurate, up-to-date, and complete, but no guarantee is made to that effect. Drug information contained herein may be time sensitive. [employer] information has been compiled for use by healthcare practitioners and consumers in the [place] and therefore [employer] does not warrant that uses outside of the [place] are appropriate, unless specifically indicated otherwise. [employer]'s drug information does not endorse drugs, diagnose patients or recommend therapy. [employer] drug information is an informational resource [...] effective or appropriate for any given patient. [employer] does not assume any responsibility for any aspect of healthcare administered with the aid of information [employer] provides. The information contained herein is not intended to cover all possible uses, directions, precautions, warnings, drug interactions, allergic reactions, or adverse effects. If you have questions about the drugs you are taking, check with your doctor, nurse or pharmacist. Copyright 4169-9700 [employer] Version: 7.01. Revision Date: 04/04/2017. guaifenesin (gwye [...] What happens if I miss a dose? Electronically signed by Israel Walls Conversion Industrial Manufacturing Technician Cerner at 11/28/2022 5:40 PM CDT documented in this encounter Plan of Treatment Upcoming Encounters Date Type Department Care Team (Late st Contact Info) Description 08/23/2025 12:45 PM EST Office Visit [facility] Electrophysiology [address] [place] [address] Vik Corcoran MD [address] [facility] [address] [place] [address] documented as of this encounter Visit Diagnoses Not on filedocumented in this encounter Care Teams Cashier Assistant Relationship Specialty Start Date End Date Alfred Castillo MD [address] [place] [address] PCP - General General Internal Medicine 08/29/22 [place] [address] [place] [address] [id number] Cardiology Fellow Interventional Cardiology 08/29/22 Vik Corcoran MD [address] [place] [address] [phone] Cardiology Fellow Electrophysiology 05/19/24 documented as of this encounter
--- OUTSIDE RECORDS SUMMARY | 2025-05-24 17:08 | XMS_ITS | Encounter Summary ---
Author Organization [employer] ([place], [place], [place], [place]) Address [address] [place] [address] Care Team Providers Care Pork Cutlet Maker Name Role Phone Alfred Cantu MD Primary Care Provider [phone] Lyndsey Key MD Unavailable [phone] Vik Corcoran MD Unavailable Encounter Details Date Type Department Care Team (Late st Contact Info) Description 11/10/2018 Transcribed Document [facility] [place] Family Medicine [facility] [address] ProviderRashard MD [address] [place] [address] Social History Tobacco Use Types Packs/Day [...] Carissa Massey Rn - 11/10/2018 14:58 EDT Electronically signed by Kavita [facility] Conversion Blocker Hand Cerner at 11/28/2022 5:47 PM CDT documented in this encounter Plan of Treatment Upcoming Encounters Date Type Department Care Team (Late st Contact Info) Description 08/23/2025 12:45 PM EST Office Visit [facility] Electrophysiology [address] [place] [phone] [place] [address] [place] [address] [address] [place] [phone] documented as of this encounter Visit Diagnoses Not on filedocumented in this encounter Care Teams Pork Cutlet Maker Relationship Specialty Start Date End Date Alfred Cantu MD [address] [place] [address] PCP - General General Internal Medicine 08/29/22 [place] [address] [place] [address] [place] [phone] Arts Therapist Interventional Cardiology 08/29/22 Vik Corcoran MD [address] [place] [address] [address] Arts Therapist Electrophysiology 05/19/24 documented as of this encounter
--- OUTSIDE RECORDS SUMMARY | 2025-05-24 17:08 | XMS_ITS | Encounter Summary ---
Author Organization [employer] ([place], [place], [place], [place]) Address [address] [place] [address] Care Team Providers Care Police Patrol Officer Name Role Phone Alfred Cantu MD Primary Care Provider [phone] Lyndsey Key MD Unavailable [phone] Vik Corcoran MD Unavailable Encounter Details Date Type Department Care Team (Late st Contact Info) Description 11/04/2018 Transcribed Document [facility] [place] Family Medicine [facility] [place] [address] ProviderRashard MD [address] [place] [address] Social History Tobacco Use Types Packs/Day [...] full and cannot accept new messages DAMIAN AMEZQUITA RN - 11/04/2018 14:50 EDT documented in this encounter Plan of Treatment Upcoming Encounters Date Type Department Care Team (Late st Contact Info) Description 08/23/2025 12:45 PM EST Office Visit [facility] Electrophysiology [address] [place] [phone] [place] [address] [place] [address] [address] [place], [place] [phone] documented as of this encounter Visit Diagnoses Not on filedocumented in this encounter Care Teams Police Patrol Officer Relationship Specialty Start Date End Date Alfred Cantu MD [address] [place] [address] PCP - General General Internal Medicine 08/29/22 [place] [address] [place] [address] [address] [place] [address] Teachers Aide Interventional Cardiology 08/29/22 Vik Corcoran MD [address] [place] [address] [address] [place], [place] [id number] Teachers Aide Electrophysiology 05/19/24 documented as of this encounter
--- OUTSIDE RECORDS SUMMARY | 2025-05-24 17:08 | XMS_ITS | Encounter Summary ---
Author Organization [employer] ([place], [place], [place], [place]) Address [address] [place] [address] Care Team Providers Care Travel Counselor Automobile Club Name Role Phone Alfred Cantu MD Primary Care Provider [phone] Lyndsey Key MD Unavailable [phone] Vik Corcoran MD Unavailable Encounter Details Date Type Department Care Team (Late st Contact Info) Description 11/11/2018 Transcribed Document [facility] [place] Family Medicine [facility] [place] [address] ProviderRashard MD [address] [place] [address] Social History Tobacco Use Types Packs/Day [...] Carissa Massey Rn - 11/11/2018 16:05 EDT Electronically signed by Micheal Walls Conversion Document Preparation Specialist Cerner at 11/28/2022 5:47 PM CDT documented in this encounter Plan of Treatment Upcoming Encounters Date Type Department Care Team (Late st Contact Info) Description 08/23/2025 12:45 PM EST Office Visit [facility] Electrophysiology [address] [place] [phone] [place] [address] [place] [address] [address] [place] [phone] documented as of this encounter Visit Diagnoses Not on filedocumented in this encounter Care Teams Travel Counselor Automobile Club Relationship Specialty Start Date End Date Alfred Cantu MD [address] [place] [address] PCP - General General Internal Medicine 08/29/22 Lyndsey Key MD [address] [place] [address] [place] [phone] Extraction Operator Interventional Cardiology 08/29/22 Vik Corcoran MD [address] [place] [address] [address] Extraction Operator Electrophysiology 05/19/24 documented as of this encounter
--- OUTSIDE RECORDS SUMMARY | 2025-05-24 17:08 | XMS_ITS | Encounter Summary ---
Author Organization [employer] ([place], [place], [place], [place]) Address [address] [place] [address] Care Team Providers Care Hydro Generation Manager Name Role Phone Alfred Cantu MD Primary Care Provider [phone] Lyndsey Key MD Unavailable [phone] Vik Corcoran MD Unavailable Encounter Details Date Type Department Care Team (Late st Contact Info) Description 10/20/2018 Transcribed Document [facility] [place] Family [facility] [place] [address] ProviderRashard MD [address] [place] [address] Social History Tobacco Use Types Packs/Day [...] #2 Relationship : Son Primary Language : Palestinian Communication Barrier : None Vernon Olsen RN [...] Scale Risk Level : 25-45 Medium Risk [place] Fall Interventions : Adequate lighting, Assistive devices [...] Source : Stated Height Entry Format : [place] Height, Feet : 5 ft(Converted to: 152 [...] Body Mass Index : 38 kg/m2 (HI) [place] Body Weight : 45 kg Vernon Olsen [...] available. Influenza Immunization, Current Season : Yes eVrnon Olsen RN - 10/21/2018 0:42 EDT Pneumococcal [...] - 10/21/2018 0:42 EDT Electronically signed by [facility], [facility] Conversion Computer Repair Instructor Cerner at 11/28/2022 5:45 PM CDT documented in this encounter Plan of Treatment Upcoming Encounters Date Type Department Care Team (Late st Contact Info) Description 08/23/2025 12:45 PM EST Office Visit [facility] Electrophysiology [address] [place] [address] [place] [address] [place] [address] [address] [place] [address] documented as of this encounter Visit Diagnoses Not on filedocumented in this encounter Care Teams Hydro Generation Manager Relationship Specialty Start Date End Date Alfred Cantu MD [address] [place] [address] PCP - General General Internal Medicine 08/29/22 [place] [address] [place] [address] [address] [place], [place] [phone] Fence Setter Interventional Cardiology 08/29/22 [place] [address] [place] [address] [address] [place] [address] Fence Setter Electrophysiology 05/19/24 documented as of this encounter
--- OUTSIDE RECORDS SUMMARY | 2025-05-24 17:08 | XMS_ITS | Encounter Summary ---
Author Organization [employer] ([place], [place], [place], [place]) Address [address] [place] [address] Care Team Providers Care Podiatric Medicine Professor Name Role Phone Alfred Cantu MD Primary Care Provider [phone] Lyndsey Key MD Unavailable [phone] Vik Corcoran MD Unavailable Encounter Details Date Type Department Care Team (Late st Contact Info) Description 10/21/2018 Transcribed Document [facility] [address] [place] [address] ProviderRashard MD [address] [place] [address] Social History Tobacco Use Types Packs/Day [...] 10/21/2018 11:09 EDT Electronically signed by [facility] Conversion Shape Brick Molder Cerner at 11/28/2022 5:36 PM CDT documented in this encounter Plan of Treatment Upcoming Encounters Date Type Department Care Team (Late st Contact Info) Description 08/23/2025 12:45 PM EST Office Visit [facility] Electrophysiology [address] [place] [phone] [place] [address] [place] [address] [address] [place], [place] [phone] documented as of this encounter Visit Diagnoses Not on filedocumented in this encounter Care Teams Podiatric Medicine Professor Relationship Specialty Start Date End Date Alfred Cantu MD [address] [place] [address] PCP - General General Internal Medicine 08/29/22 [place] [address] [place] [address] [address] [place] [address] Diesel Trailer Mechanic Interventional Cardiology 08/29/22 [place] [address] [place] [address] [address] [place], [place] [id number] Diesel Trailer Mechanic Electrophysiology 05/19/24 documented as of this encounter
--- OUTSIDE RECORDS SUMMARY | 2025-05-24 17:08 | XMS_ITS | Encounter Summary ---
Author Organization [employer] ([place], [place], [place], [place]) Address [address] [place] [address] Care Team Providers Care Retail Marketing Specialist Name Role Phone Alfred Castillo MD Primary Care Provider [phone] Lyndsey Key MD Unavailable [phone] Vik Corcoran MD Unavailable Encounter Details Date Type Department Care Team (Late st Contact Info) Description 11/03/2018 Transcribed Document [facility] [place] [address] ProviderRashard MD [address] [place] [address] Social History Tobacco Use Types Packs/Day [...] Rashard ProviderMD - 11/03/2018 9:26 AM CDT [address] , [place] [address] Patient Copy Patient Information: Name: KATHY JIMENEZ Current Date: 11/03/2018 09:26:44 : 1940 Patient Address: [address] [place] [address] [place] [address] Patient Attending Physician: CARMELLA MEI MD-INT Primary Care Provider: HARPREETY, NOT LISTED Primary Care Provider Phone: Discharge Diagnosis: Weight on Admission: 194 lb, 1 oz Weight at Discharge: 186 lb, 3 oz Comment: Follow-up Instructions: With: Address: When: ALFRED CASTILLO [address] [facility] [facility] [address], [address] [place], [place] [id number] Business (1) Within 1 week Comments: The office is closed today until 2:00 PM this Friday. Please call to make a 1 week follow-up appointment and discuss 3-[address] scan. Also discuss antibiotic therapy. With: Address: When: KASH BUTTS [address] [facility], [address] [place] [address] Business (1) 11:00 AM Comments: Bring Ins Card, Photo ID, Ins Co-pay Bring discharge instructions with you Call for follow up appointment Return with blood work With: Address: When: CLARE LIVINGSTON [address] [facility], [address] [place], [place] [id number] Business (1) Within As needed Comments: Please call to make a follow-up appointment IF you are unable to get in with Dr. Castillo within 1 week. With: Address: When: NAZANIN NAVA [address] [place] [address]., [address] [place] [address] Business (1) 9:00 AM Comments: [...] Medical Equipment for Home Use: [facility] for bedside commode and nebulizer [phone] Home Health Services: [facility] [phone] Immunizations Documented During Stay: No Immunizations Found [...] Discharge Instructions (if any): Final Medication List: [facility], [place] [address], [phone] amiodarone (amiodarone 200 mg oral tablet) 2 [...] Follow these instructions at home: Medicines??? Take iwts-srq-pwirctj and prescription medicines only as told by [...] and water are not available, use hand teleservices representative. ? Change your dressing as told by [...] radio towers. ??? Do notuse amateur ( Appistry ) radio equipment or electric ( arc [...] 12/08/2007 Document Revised: 04/21/2017 Document Reviewed: 03/06/2015 Onco[employer] Interactive Patient Education ? 2017 On[employer] Inc. Smoking Hazards Smoking cigarettes is extremely [...] contain harmful chemicals. FOR MORE INFORMATION ??? [place] Lung Association: www.lung.org ??? [place] Cancer Society: www.cancer.org This information is not intended to replace advice given to you by your health care provider. Make sure you discuss any questions you have with your health care provider. Document Released: 09/04/2005 Document Revised: 11/18/2016 Document Reviewed: 01/17/2014 Onco[employer] Interactive Patient Education ? 2017 [employer]. Heart-Healthy Eating Plan Many factors influence your [...] foods can I eat? Grains Breads, including Slovenian, white, serenity, wheat, raisin, rye, oatmeal, and Spanish. Tortillas that are neither fried nor made with lard or trans fat. Low-fat rolls, including hotdog and hamburger buns and Zambian muffins. Biscuits. Muffins. Waffles. Pancakes. Light popcorn. [...] cheese. Whole milk cheeses, including blue (henry), [place] Gary, Brie, Hayes, Russian, Havarti, Marshallese, cheddar, Camembert, and Belford. Whole or 2% milk that is liquid, [...] that has suet, meat fat, or shortening. [place] butter, hydrogenated oils, palm oil, coconut oil, [...] 05/06/2009 Document Revised: 02/14/2017 Document Reviewed: 01/19/2015 Onco[employer] Interactive Patient Education ? 2017 Onco[employer] Inc. How to Take a Pulse Your [...] 02/01/2004 Document Revised: 02/14/2017 Document Reviewed: 12/31/2016 [employer] Interactive Patient Education ? 2017 [employer] Inc. How to Take Your Blood Pressure [...] 09/22/2014 Elsevier Interactive Patient Education ? 2017 Onco[employer] Inc. Cardiomyopathy, Adult Cardiomyopathy is a long-term [...] Other treatments may include cardiac resynchronization therapy (WAGON DRIVER) or a left ventricular assist device (LVAD). [...] to manage stress. General instructions ??? Take dnde-phh-atkoekt and prescription medicines only as told by [...] 10/10/2005 Document Revised: 03/25/2017 Document Reviewed: 01/27/2017 OncoHealth Interactive Patient Education ? 2017 [employer]. Medication Leaflets: carvedilol (PRABHJOT ve dil ole) [...] may report side effects to FDA at 0-105-NCH-0167. What other drugs will affect carvedilol? Other drugs may interact with carvedilol, including prescription and kcsc-yxl-bfglxxt medicines, vitamins, and herbal products. Tell each [...] to ensure that the information provided by [employer]. ('Multum') is accurate, up-to-date, and complete, but no guarantee is made to that effect. Drug information contained herein may be time sensitive. [employer] information has been compiled for use by healthcare practitioners and consumers in the [place] and therefore [employer] does not warrant that uses outside of the [place] are appropriate, unless specifically indicated otherwise. [employer]'s drug information does not endorse drugs, diagnose patients or recommend therapy. College of Nursing and Health Sciences (CNHS)s drug information is an informational resource designed [...] effective or appropriate for any given patient. [employer] does not assume any responsibility for any aspect of healthcare administered with the aid of information [employer] provides. The information contained herein is not intended to cover all possible uses, directions, precautions, warnings, drug interactions, allergic reactions, or adverse effects. If you have questions about the drugs you are taking, check with your doctor, nurse or pharmacist. Copyright 3226-6570 [employer]. Version: 15.01. Revision Date: 08/30/2013. albuterol and [...] may report side effects to FDA at 3-977-PMV-3943. What other drugs will affect albuterol and ipratropium inhalation? Tell your doctor about all your current medicines and any you start or stop using, especially: ? a diuretic or 'water pill'; ?? heart or blood pressure medicine; ?? other beta-blockers; or ?? an antidepressant. This list is not complete. Other drugs may interact with albuterol and ipratropium, including prescription and lzbl-lci-akyjmtd medicines, vitamins, and herbal products. Not all [...] to ensure that the information provided by [employer]. ('[employer]um') is accurate, up-to-date, and complete, but no guarantee is made to that effect. Drug information contained herein may be time sensitive. [employer] information has been compiled for use by healthcare practitioners and consumers in the [place] and therefore [employer] does not warrant that uses outside of the [place] are appropriate, unless specifically indicated otherwise. [employer]'s drug information does not endorse drugs, diagnose patients or recommend therapy. College of Nursing and Health Sciences (CNHS)s drug information is an informational resource designed [...] effective or appropriate for any given patient. [employer] does not assume any responsibility for any aspect of healthcare administered with the aid of information [employer] provides. The information contained herein is not intended to cover all possible uses, directions, precautions, warnings, drug interactions, allergic reactions, or adverse effects. If you have questions about the drugs you are taking, check with your doctor, nurse or pharmacist. Copyright 1375-2738 [employer]. Version: 7.01. Revision Date: 04/04/2017. guaifenesin (gwye [...] Office Visit [facility] Electrophysiology [address] [place] [address] Vik Corcoran MD [address] [facility] [address] [place] [address] documented as of this encounter Visit Diagnoses Not on filedocumented in this encounter Care Teams Retail Marketing Specialist Relationship Specialty Start Date End Date Alfred Castillo MD [address] [place] [address] PCP - General General Internal Medicine 08/29/22 Lyndsey Key MD [address] [facility] [address] [address] Bait Tier Interventional Cardiology 08/29/22 [place] [address] [place] [address] [address] Bait Tier Electrophysiology 05/19/24 documented as of this encounter
--- OUTSIDE RECORDS SUMMARY | 2025-05-24 17:08 | XMS_ITS | Encounter Summary ---
Author Organization [employer] ([place], [place], [place], [place]) Address [address] [place] [address] Care Team Providers Care Customer Loyalty Representative Name Role Phone Alfred Cantu MD Primary Care Provider [phone] Lyndsey Key MD Unavailable [phone] Vik Corcoran MD Unavailable Encounter Details Date Type Department Care Team (Late st Contact Info) Description 07/24/2021 Transcribed Document [facility] [place] Family Medicine [address] [place] [address] ProviderRashard MD [address] [place] [address] Social History Tobacco Use Types [...] Rashard Gonzalez MD - 07/24/2021 7:46 AM TOOL MAKER BENCH Patient Education Materials Follows: What to do [...] or other animals while sick. See HYPERLINK https://www.cdc.gov/coronavirus/2019-ncov/faq.html#3828-lOvD-xvi-animals COVID-19 and Animals for more information. Call [...] clean your hands with an alcohol-based hand account strategist that contains at least 60 to 95% [...] clean your hands with an alcohol-based hand account strategist that contains at least 60% alcohol, covering [...] isolation precautions should be made on a aljh-nw-tdna basis, in consultation with healthcare providers and [...] to thoroughly wash your hands, use hand account strategist. While handwashing is best, hand account strategist helps to reduce the spread of germs when you are out and about. Have hand account strategist in several locations so you can always [...] keep people from also getting sick. Don???t Woody It! Sneezing this time of year is [...] a PCP near you, please visit HYPERLINK [email or web address] [email or web address].[email or web address]/ www.[email or web address].[email or web address]. October 15, 2019 Pharmacology Moderate Conscious Sedation, [...] you are awake and alert. ??? Take qbdo-xui-xqrhhbm and prescription medicines only as told by [...] provider. Document Revised: 06/22/2020 Document Reviewed: 06/22/2020 [employer] Patient Education ? 2020 [employer]. Radiology Transesophageal Echocardiogram Transesophageal echocardiogram (PETER) is [...] including vitamins, herbs, eye drops, creams, and stuo-zxb-zzpulew medicines. ??? Any problems you or family [...] diabetes medicines or blood thinners. ? Taking gypq-kic-elznkcw medicines, vitamins, herbs, and supplements. ? Taking [...] Reviewed: 10/24/2017 Elsevier Patient Education ? 2020 [employer] Inc. documented in this encounter Plan of Treatment Upcoming Encounters Date Type Department Care Team (Late st Contact Info) Description 08/23/2025 12:45 PM EST Office Visit [facility] Electrophysiology [address] [place] [phone] Vik Corcoran MD [address] [place] [address] [phone] documented as of this encounter Visit Diagnoses Not on filedocumented in this encounter Care Teams Customer Loyalty Representative Relationship Specialty Start Date End Date Alfred Cantu MD [address] [place] [address] PCP - General General Internal Medicine 08/29/22 Lyndsey Key MD [address] [place] [address] [address] Rural Mail Carrier Interventional Cardiology 08/29/22 Vik Corcoran MD [address] [place] [address] [address] Rural Mail Carrier Electrophysiology 05/19/24 documented as of this encounter
--- OUTSIDE RECORDS SUMMARY | 2025-05-24 17:08 | XMS_ITS | Encounter Summary ---
Author Organization [employer] ([place], [place], [place], [place]) Address [address] [place] [address] Care Team Providers Care Print Inspector Name Role Phone Alfred Cantu MD Primary Care Provider [phone] Lyndsey Key MD Unavailable [phone] Vik Corcoran MD Unavailable Encounter Details Date Type Department Care Team (Late st Contact Info) Description 10/21/2018 Transcribed Document [facility] [place] [facility] [place] [address] ProviderRashard MD [address] [place] [address] Social History Tobacco Use Types Packs/Day [...] Rashard ProviderMD - 10/21/2018 2:00 AM CDT Engraving Press Operator Details Entered On: 10/21/2018 7:04 EDT Performed [...] - 10/21/2018 7:04 EDT Electronically signed by [facility], [facility] Conversion Remote Computer Terminal Operator Cerner at 11/28/2022 5:34 PM CDT documented in this encounter Plan of Treatment Upcoming Encounters Date Type Department Care Team (Late st Contact Info) Description 08/23/2025 12:45 PM EST Office Visit [facility] Electrophysiology [address] [place] [phone] Vik Corcoran MD [address] [place] [address] [address] [place], [place] [phone] documented as of this encounter Visit Diagnoses Not on filedocumented in this encounter Care Teams Print Inspector Relationship Specialty Start Date End Date Alfred Cantu MD [address] [place] [address] PCP - General General Internal Medicine 08/29/22 Lyndsey Key MD [address] [place] [address] [address] Sleeve Turner Interventional Cardiology 08/29/22 Vik Corcoran MD [address] [place] [address] [address] Sleeve Turner Electrophysiology 05/19/24 documented as of this encounter
--- OUTSIDE RECORDS SUMMARY | 2025-05-24 17:08 | XMS_ITS | Encounter Summary ---
Author Organization [employer] ([place], [place], [place], [place]) Address [address] [place] [address] Care Team Providers Care Turret Lathe Set Up Operator Name Role Phone Alfred Cantu MD Primary Care Provider [phone] Lyndsey Key MD Unavailable Vik Corcoran MD Unavailable Encounter Details Date Type Department Care Team (Late st Contact Info) Description 11/02/2018 Transcribed Document [facility] [place] [facility] [place] [address] ProviderRashard MD [address] [place] [id number] Social History Tobacco Use Types Packs/Day [...] RT_Q6H Eliquis, 5 mg= 1 Tab, Oral, [id number] magnesium sulfate, 2 Gram= 50 mL, IV Piggyback, Q2H, PRN magnesium sulfate, 2 Gram= 50 mL, IV Piggyback, Daily, PRN Mucinex, 1200 mg= 2 Tab, Oral, BID nystatin, [id number] Units= 10 mL, Swish and Swallow , [...] oral tablet, 500 mg= 1 Tab, Oral, [id number] omeprazole 20 mg oral delayed release capsule, [...] Level 0.90 mg/dL 11/01/2018 05:02 Bun/Creatinine 30.0 [place] 11/01/2018 05:02 Sodium Level 129 mmol/L LOW 11/02/2018 07:16 Potassium Level 4.9 mmol/L 11/01/2018 05:02 Chloride Level 88 mmol/L LOW 11/01/2018 05:02 Carbon Dioxide Level 27 mmol/L 11/01/2018 05:02 Anion Gap 11 11/01/2018 05:02 Blood Urea Nitrogen 27 mg/dL [place] 11/01/2018 05:02 Glucose Level 89 mg/dL 11/01/2018 05:02 Calcium Level 8.5 mg/dL 11/01/2018 05:02 Coagulation Results (Current Encounter/Past 24 Hours) No Coagulation Results Found (Past 24 Hours) Creatinine Clearance (Current Encounter/Past 24 Hours) Creatinine Level 0.90 mg/dL 11/01/2018 05:02 Bun/Creatinine 30.0 [place] 11/01/2018 05:02 Estimated Creatinine Clearance 38.20 mL/Min 11/01/2018 05:02 Electronically signed by Israel Walls Conversion Customer Service Administrator Cerner at 11/28/2022 5:44 PM CDT documented in this encounter Plan of Treatment Upcoming Encounters Date Type Department Care Team (Late st Contact Info) Description 08/23/2025 12:45 PM EST Office Visit [address] [phone] Vik Corcoran MD [address] [place] [address] [address] [place] [address] documented as of this encounter Visit Diagnoses Not on filedocumented in this encounter Care Teams Turret Lathe Set Up Operator Relationship Specialty Start Date End Date Alfred Cantu MD [address] [place] [id number] PCP - General General Internal Medicine 08/29/22 Lyndsey Key MD [address] [place] [id number] Rounder Hand Interventional Cardiology 08/29/22 Vik Corcoran MD [address] [place] [address] Rounder Hand Electrophysiology 05/19/24 documented as of this encounter
--- OUTSIDE RECORDS SUMMARY | 2025-05-24 17:08 | XMS_ITS | Encounter Summary ---
Author Organization [employer] ([place], [place], [place], [place]) Address [address] [place] [address] Care Team Providers Care Casket Coverer Name Role Phone Alfred Cantu MD Primary Care Provider [phone] Lyndsey Key MD Unavailable [phone] Vik Corcoran MD Unavailable Encounter Details Date Type Department Care Team (Late st Contact Info) Description 10/21/2018 Transcribed Document [facility] [place] [facility] [place] [address] ProviderRashard MD [address] [place] [address] Social History Tobacco Use Types Packs/Day [...] 10/21/2018 16:38 EDT Electronically signed by [facility] Conversion Probate Lawyer Cerner at 11/28/2022 5:36 PM CDT documented in this encounter Plan of Treatment Upcoming Encounters Date Type Department Care Team (Late st Contact Info) Description 08/23/2025 12:45 PM EST Office Visit [facility] Electrophysiology [address] [place] [phone] [place] [address] [place] [address] [address] [place], [place] [id number] documented as of this encounter Visit Diagnoses Not on filedocumented in this encounter Care Teams Casket Coverer Relationship Specialty Start Date End Date Alfred Cantu MD [address] [place] [address] PCP - General General Internal Medicine 08/29/22 [place] [address] [place] [address] [address] [place] [address] Pad Extractor Tender Interventional Cardiology 08/29/22 [place] [address] [place] [address] [address] [place], [place] [id number] Pad Extractor Tender Electrophysiology 05/19/24 documented as of this encounter
== END 2025-05-23 23:59 | disposition home or self-care (01) ==
LOC: LAB.DROPOF 05-24 17:02
PROVIDERS: PCP Internal Medicine; Visit Provider Internal Medicine
DX: N39.0 Urinary tract infection, site not specified (principal)
CPT/HCPCS: 87086; 87088; 87186